=== PATIENT | male | born 1950 | race African-American/Black ===

== ENCOUNTER → 2020-05-19 09:48 | Outpatient (BNVA) | payer OTHER, SELFPAY | PROVIDERS: PCP Internal Medicine; Referring Provider Internal Medicine; Visit Provider Surgery | DX: Z76.89 Persons encountering health services in other specified circumstances (principal) ==

== ENCOUNTER → 2020-06-25 09:21 | Outpatient (BNVA) | payer OTHER, SELFPAY | PROVIDERS: PCP Internal Medicine; Referring Provider Internal Medicine; Visit Provider Internal Medicine Gastroenterology | DX: Z86.018 Personal history of other benign neoplasm (principal); Z90.49 Acquired absence of other specified parts of digestive tract | CPT/HCPCS: 99212 ==

== ENCOUNTER 2020-08-21 13:45 | Outpatient (REF) | payer OTHER, SELFPAY | END 2020-08-21 13:46 | disposition home or self-care (01) | LOC: HO.LAB 13:45 | PROVIDERS: Visit Provider Internal Medicine | DX: Z20.828 Contact with and (suspected) exposure to other viral communicable diseases (principal) | CPT/HCPCS: 36415; C9803; U0003 ==

== ENCOUNTER → 2021-01-26 11:31 | Outpatient (BNVA) | payer OTHER, SELFPAY | PROVIDERS: PCP Internal Medicine; Visit Provider Internal Medicine Cardiovascular Disease | DX: I48.92 Unspecified atrial flutter (principal); I10 Essential (primary) hypertension; K92.1 Melena; Z95.0 Presence of cardiac pacemaker; Z79.899 Other long term (current) drug therapy | CPT/HCPCS: 93005; 99212 ==

== ENCOUNTER → 2021-03-09 12:35 | Outpatient (BNVA) | payer OTHER, SELFPAY | PROVIDERS: PCP Internal Medicine; Referring Provider Internal Medicine; Visit Provider Surgery | DX: K64.9 Unspecified hemorrhoids (principal); K92.1 Melena; D12.0 Benign neoplasm of cecum; C61 Malignant neoplasm of prostate; I10 Essential (primary) hypertension; Z95.0 Presence of cardiac pacemaker; Z79.01 Long term (current) use of anticoagulants; Z79.899 Other long term (current) drug therapy | CPT/HCPCS: 46600; 99212 ==

== ENCOUNTER 2021-03-15 12:41 | Emergency (ER) | payer OTHER, SELFPAY ==
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
[2021-03-15 13:07] VITALS: BP 136/94; PULSE 68; RESP 16; TEMP 35.5; O2SAT 97; BMI 29.1
[2021-03-15 14:27] VITALS: BP 167/94; PULSE 65; RESP 18; TEMP 36.6; O2SAT 97
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
[2021-03-15 16:26] VITALS: BP 161/92; PULSE 61; RESP 16; TEMP 36.5; O2SAT 95
== END 2021-03-15 16:41 | disposition home or self-care (01) ==
PROVIDERS: Emergency Provider Internal Medicine; PCP Internal Medicine
DX: S13.9XXA Sprain of joints and ligaments of unspecified parts of neck, initial encounter (principal); M54.12 Radiculopathy, cervical region; M54.2 Cervicalgia; V43.52XA Car driver injured in collision with other type car in traffic accident, initial encounter; Y93.9 Activity, unspecified; Y92.410 Unspecified street and highway as the place of occurrence of the external cause; Y99.9 Unspecified external cause status; F17.210 Nicotine dependence, cigarettes, uncomplicated; Z71.6 Tobacco abuse counseling; Z79.899 Other long term (current) drug therapy
CPT/HCPCS: 70450; 72125; 99284

== ENCOUNTER 2021-06-03 12:43 | Emergency (ER) | payer OTHER, SELFPAY ==
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
[2021-06-03 12:50] VITALS: BP 139/82; PULSE 65; RESP 18; TEMP 36.8; O2SAT 98; BMI 29.7
--- NOTE | 2021-06-03 14:06 | ED_ITS ---
HPI - GI Bleed General Chief complaint: Abdominal Pain Stated complaint: blood in stool Time Seen by Provider: 06/03/21 14:05 Source: patient Mode of arrival: ambulatory Limitations: no limitations History of Present Illness HPI Narrative: 70-year-old male past medical history of asthma, atrial flutter, adenoma of ascending colon, tubular adenoma of the colon c right hemicolectomy, and bleeding heorrhoids presents to the emergency department with blood in the stool for a few months, worse today He states that usually he sees blood when he wipes, his doctor told him this was from hemorrhoids. However this morning he had an episode of bright red blood per rectum that filled up the toilet bowl. He says this has never happened to him before. He reports his bowel movements have required a lot of straining, and he has used suppositories. He denies abdominal pain, fevers, chills, weakness, shortness of breath, nausea, vomiting. He has had a colonoscopy in the past, few years ago, with no significant fin dings per patient. He denies family history of colorectal cancer. He is currently taking apixaban. MD complaint: blood on toilet paper and gross hematochezia Onset (ago): month(s) (1) Relieving factors: none Exacerbating factors: bowel movement Context: hemorrhoids and anticoagulant use (apixaban) Associated symptoms: denies other symptoms Treatments Prior to Arrival: suppositories Related Data Home Medications Medication Instructions Recorded Confirmed amlodipine 5 mg tablet 5 mg PO DAILY 05/17/20 03/09/21 apixaban 5 mg tablet 5 mg PO BID 05/17/20 03/09/21 pravastatin 40 mg tablet 40 mg PO DAILY 05/17/20 03/09/21 Previous Rx's Medication Instructions Recorded cyclobenzaprine 10 mg tablet 10 mg PO TID PRN #18 tab 03/15/21 Allergies Allergy/AdvReac Type Severity Reaction Status Date / Time No Known Allergies Allergy Verified 03/15/21 13:11 [No Known Allergies*] Review of Systems Review of Systems: Constitutional : No Weight loss, No Fever, No Chills, No Fatigue, No Malaise ENT/Mouth : No sore throat, No Rhinorrhea Eyes: No Eye Pain, No Swelling, No Redness Cardiovascular : No Chest Pain, No SOB, No Dyspnea on Exertion, No Orthopnea, No Edema, No Palpitations Respiratory : No Cough, No Sputum, No Wheezing Gastrointestinal : No Nausea, No Vomiting, No Diarrhea, No Constipation, No abdominal Pain, + Hematochezia, No Melena Genitourinary : No Dysuria, No Urinary Frequency, No Hematuria, Musculoskeletal : No joint pain, No Myalgias, No Joint Swelling Skin : No Skin Lesions, No rash Neuro : No Weakness, No Numbness, No Dizziness, No Headache All other systems reviewed and are negative [facility] Past Medical History Attestation statement: The following information was validated with the patient. Source: old records reviewed and nursing notes reviewed Medical History Bleeding hemorrhoids Cardiac pacemaker in situ Hypertension Prostate cancer Tubular adenoma of colon Surgical History H/O colonoscopy H/O hernia repair History of prostate biopsy History of right hemicolectomy Hx of tonsillectomy Pacemaker Family History Family History Father Family history of Alzheimer's disease Mother Breast cancer Social History Social History Alcohol intake: current Alcohol intake frequency: a few times a month Cigarettes Per Day: 1 Advance Directives: No Advance Directives Information Provided: No Physical Exam Vital Signs: Vital Signs: Last Vital Signs Temp 98.3 F 06/03/21 16:46 Pulse 65 06/03/21 16:46 Resp 18 06/03/21 16:46 BP 160/92 H 06/03/21 16:46 Pulse Ox 98 06/03/21 16:46 Body Mass Index 29.7 Appearance: Alert. Oriented X3. No acute distress. Eyes: Pupils equal, round and reactive to light. ENT: Pharynx normal. Neck: Normal inspection. Neck supple. CVS: Normal heart rate and rhythm. Pulses normal. Respiratory: No respiratory distress. Breath sounds normal. Abdomen: Soft and nontender. GI: MARISABEL reveals small internal hemorrhoids. There was no blood noted upon MARISABEL. Skin: Skin warm and dry. Normal skin color. Normal skin turgor. Extremities: No lower extremity edema. No calf ttp Neuro: Oriented X 3. No motor deficit. No sensory deficit. Course Course Course Narrative: 1729 Patient refusing all medical care at this time. Refusing repeat blood work. His H&H is stable at this time. He has been educated on the importance of these labs and he has been advised to follow up with his PCP or return with new and or worsening symptoms. MDM - GI Bleed MDM Narrative Medical decision making narrative: 70-year-old male past medical history of asthma, atrial flutter, adenoma of ascending colon, tubular adenoma of the colon c right hemicolectomy, and bleeding heorrhoids presents to the emergency department with blood in the stool for the past month, worse this morning. He states that this morning the toilet bowl filled up with blood, this is never happened to him before. This is not like his typical hemorrhoid bleeding. He is currently taking apixaban. Upon physical examination there is no tenderness to palpation of the abdomen. Lungs are clear to auscultation, normal S1 and S2 free of murmurs rubs or gallops. No focal neuro deficits. Digital rectal exam reveals small internal hemorrhoids, that do not appear to be bleeding at this time. No gigi blood noted upon MARISABEL. At this time basic labs will be ordered, and a CT of the abdomen pelvis will also be done. Differential Diagnosis Differential diagnosis: Likely hemorrhoids Lab Data Result diagrams: 06/03/21 14:30 06/03/21 14:30 Labs: Lab Results 06/03/21 06/03/21 06/03/21 Range/Units 14:30 14:30 14:30 WBC 4.2 L (4.8-10.8) X10*3/uL RBC 4.16 L (4.60-5.80) X10*6/uL Hgb 13.2 L (14.0-18.0) g/dl Hct 39.3 L (42-52) % MCV 94.5 (80-98) fL MCH 31.7 (27.0-33.0) pg MCHC 33.6 (31.0-36.0) g/dl RDW 15.8 (11.0-16.0) % Plt Count 178 (160-400) X10*3/uL MPV 11.4 (9.4-12.4) fL Immature Gran % (Auto) 0.2 (0.0-0.4) % Neut % (Auto) 68.8 (45-73) % Lymph % (Auto) 14.7 L (20-40) % [place] % (Auto) 12.3 H (2-11) % Eos % (Auto) 3.8 (0-4) % Baso % (Auto) 0.2 (0-2) % Lymph # (Auto) 0.6 L (1.2-4.9) X10*3/uL [place] # (Auto) 0.5 (0.1-1.2) X10*3/uL Eos # (Auto) 0.2 (0.0-0.4) X10*3/uL Baso # (Auto) 0.0 (0.0-0.2) X10*3/uL Abs Immat Gran (auto) 0.01 (0.00-0.03) X10*3/uL Absolute Neuts (auto) 2.9 (2.0-8.3) X10*3/uL Absolute Nucleated RBC 0.000 (0.0-0.012) X10*3/uL Nucleated RBC % (auto) 0.0 (0.0-0.2) /100WBC Sodium 138 (135-145) mmol/L Potassium 4.4 (3.3-5.1) mmol/L Chloride 104 (96-108) mmol/L Carbon Dioxide 23 (22-29) mmol/L Anion Gap 15 (12-20) BUN 26 H (9-16) mg/dL Creatinine 2.02 H (0.5-1.4) mg/dL Estim Creat Clear Calc 39.1 Estimated GFR 33 Random Glucose 90 (60-115) mg/dL Calcium 9.3 (8.4-10.2) mg/dL Magnesium 2.2 (1.6-2.6) mg/dL Total Bilirubin 0.5 (0.0-1.0) mg/dL Direct Bilirubin 0.2 (0.0-0.5) mg/dL AST 13 (5-37) U/L ALT 11 (0-40) U/L Alkaline Phosphatase 71 (39-117) U/L Total Protein 6.5 (6.5-8.0) g/dL Albumin 4.0 (3.5-5.0) g/dL Stool Occult Blood POSITIVE (NEGATIVE) Discharge Plan Discharge Clinical Impression: Acute lower gastrointestinal bleeding Patient Disposition: Home, Self-Care Instructions: Gastrointestinal Bleeding (ED) Additional Instructions: return to ED for any worsening symptoms or concerns it was recommended that you stay for repeat blood tests, we cannot say for sure where your bleeding is coming from. This could be life threatening. Please come back at any time or call your doctor FLORY Prescriptions: No Action cyclobenzaprine 10 mg tablet 10 mg PO TID PRN (Reason: pain) Qty: 18 RF: 0 pravastatin 40 mg tablet 40 mg PO DAILY RF: 0 amlodipine 5 mg tablet 5 mg PO DAILY RF: 0 apixaban 5 mg tablet 5 mg PO BID RF: 0 Referrals: Hillary Poole MD [Primary Care Provider] - 1 day
[2021-06-03 14:42] LABS: MANUAL DIFF FLAG NO
[2021-06-03 14:44] LABS: Basophils Percent Auto 0.2 % (0-2); Eosinophils Absolute Auto 0.2 X10*3/uL (0.0-0.4); Eosinophils Percent Auto 3.8 % (0-4); Hematocrit 39.3 % (42-52); Hemoglobin 13.2 g/dl (14.0-18.0); Imm Gran Abs Auto 0.01 X10*3/uL (0.00-0.03); Imm Gran Pct Auto 0.2 % (0.0-0.4); Lymphocytes Absolute Auto 0.6 X10*3/uL (1.2-4.9); Lymphocytes Percent Auto 14.7 % (20-40); Mean Corpuscular HGB Conc 33.6 g/dl (31.0-36.0); Mean Corpuscular Hemoglobin 31.7 pg (27.0-33.0); Mean Corpuscular Volume 94.5 fL (80-98); Mean Platelet Volume 11.4 fL (9.4-12.4); Monocytes Absolute Auto 0.5 X10*3/uL (0.1-1.2); Monocytes Percent Auto 12.3 % (2-11); Neutrophils Absolute Auto 2.9 X10*3/uL (2.0-8.3); Neutrophils Percent Auto 68.8 % (45-73); Platelet Count 178 X10*3/uL (160-400); Red Blood Count 4.16 X10*6/uL (4.60-5.80); Red Cell Distribution Width 15.8 % (11.0-16.0); White Blood Count 4.2 X10*3/uL (4.8-10.8)
[2021-06-03 14:50] LABS: OBS Int Ctl Valid YES; OBS1 POSITIVE (NEGATIVE)
[2021-06-03 15:11] LABS: Alanine Aminotransferase 11 U/L (0-40); Alkaline Phosphatase 71 U/L (39-117); Anion Gap 15 (12-20); Aspartate Amino Transferase 13 U/L (5-37); Bilirubin Direct 0.2 mg/dL (0.0-0.5); Bilirubin Total 0.5 mg/dL (0.0-1.0); Blood Urea Nitrogen 26 mg/dL (9-16); Calcium 9.3 mg/dL (8.4-10.2); Carbon Dioxide 23 mmol/L (22-29); Chloride 104 mmol/L (96-108); Creatinine Clr Calc Pharmacy 39.1; Estimated Glomerular Filt Rate 33; Glucose Random 90 mg/dL (60-115); Magnesium 2.2 mg/dL (1.6-2.6); Potassium 4.4 mmol/L (3.3-5.1); Sodium 138 mmol/L (135-145); Total Protein 6.5 g/dL (6.5-8.0)
[2021-06-03 16:46] VITALS: BP 160/92; PULSE 65; RESP 18; TEMP 36.8; O2SAT 98
--- NOTE | 2021-06-03 17:31 | PC.NURSE ---
patient refusing repeat labs
== END 2021-06-03 17:51 | disposition home or self-care (01) ==
PROVIDERS: Emergency Provider Emergency Medicine; PCP Internal Medicine
DX: K92.2 Gastrointestinal hemorrhage, unspecified (principal); I10 Essential (primary) hypertension; I48.92 Unspecified atrial flutter; J45.909 Unspecified asthma, uncomplicated; Z79.01 Long term (current) use of anticoagulants; Z95.0 Presence of cardiac pacemaker
CPT/HCPCS: 36415; 74176; 80048; 80076; 82272; 83735; 85025; 99283; 99284

== ENCOUNTER 2021-06-07 12:01 | Emergency (ER) | payer OTHER, SELFPAY ==
--- NOTE | ~2021-06-07 | XR_ITS ---
EXAMINATION: XR KNEE, RIGHT CLINICAL INFORMATION: Right knee pain COMPARISON: None TECHNIQUE: Four views of the right knee. FINDINGS: Bones and soft tissues are normal. No fracture or joint effusion. Alignment is anatomic. Joint spaces are well maintained. No abnormal soft tissue calcification. XR/XR knee RT 4V IMPRESSION: Unremarkable right knee exam
[2021-06-07 12:28] VITALS: BP 149/84; PULSE 63; RESP 16; TEMP 36.1; O2SAT 98; BMI 29.7
[2021-06-07] MEDS: cephALEXin 500 MG CAPSULE PO (13:32)
--- NOTE | 2021-06-07 13:35 | ED.EXTPRO ---
HPI - Extremity Problem General Chief complaint: Extremity Problem Stated complaint: swollen rt knee Time Seen by Provider: 06/07/21 12:28 Source: patient Mode of arrival: ambulatory Limitations: no limitations History of Present Illness HPI Narrative: Patient presents to the ED for right knee pain for the past 2 days. patient states might have bumped his knee and now has redness of red knee. Patient states no fever, chills, leg swelling, chest pain, calf pain, or shortness of breath. MD Complaint: extremity pain Related Data Home Medications Medication Instructions Recorded Confirmed amlodipine 5 mg tablet 5 mg PO DAILY 05/17/20 03/09/21 apixaban 5 mg tablet 5 mg PO BID 05/17/20 03/09/21 pravastatin 40 mg tablet 40 mg PO DAILY 05/17/20 03/09/21 Previous Rx's Medication Instructions Recorded cyclobenzaprine 10 mg tablet 10 mg PO TID PRN #18 tab 03/15/21 cephalexin 500 mg capsule 500 mg PO QID #28 cap 06/07/21 doxycycline hyclate 100 mg capsule 100 mg PO BID 7 Days #14 cap 06/07/21 Allergies Allergy/AdvReac Type Severity Reaction Status Date / Time No Known Allergies Allergy Verified 03/15/21 13:11 [No Known Allergies*] Review of Systems Review of Systems: Yes all other systems are reviewed and are negative Constitutional: Constitutional: Reports as per HPI and Reports no additional constitutional complaints Eyes: Eyes: Reports as per HPI and Reports no additional eye complaints ENT: Reports system reviewed and no additional complaints, except as documented and Reports as per HPI Cardiovascular: Cardiovascular: Reports as per HPI and Reports no additional cardiovascular complaints Respiratory: Respiratory: Reports as per HPI and Reports no additional respiratory complaints Gastrointestinal: Gastrointestinal: Reports as per HPI and Reports no additional gastrointestinal complaints Genitourinary: Genitourinary: Reports no additional male genitourinary complaints and Reports as per HPI Musculoskeletal: Musculoskeletal: Reports no additional musculoskeletal complaints, Reports as per HPI and Reports arthralgias (right knee pain) Integumentary/Breasts: Skin/Breast: Reports system reviewed and no additional complaints, except as docu and Reports as per HPI Neurologic: Reports system reviewed and no additional complaints, except as documented and Reports as per HPI Psychiatric: Psychiatric: Reports no additional psychiatric complaints and Reports as per HPI COUNT INCLUDES [facility] Past Medical History Medical History Bleeding hemorrhoids Cardiac pacemaker in situ Hypertension Prostate cancer Tubular adenoma of colon Surgical History H/O colonoscopy H/O hernia repair History of prostate biopsy History of right hemicolectomy Hx of tonsillectomy Pacemaker Family History Family History Father Family history of Alzheimer's disease Mother Breast cancer Social History Social History Alcohol intake: current Alcohol intake frequency: a few times a month Cigarettes Per Day: 1 Advance Directives: No Physical Exam Vital Signs: Vital Signs: Last Vital Signs Temp 97 F 06/07/21 12:28 Pulse 63 06/07/21 12:28 Resp 16 06/07/21 12:28 BP 149/84 H 06/07/21 12:28 Pulse Ox 98 06/07/21 12:28 Body Mass Index 29.7 Const: General: cooperative, healthy appearing, comfortable, no acute distress, well developed, alert, awake and Physically active Orientation/consciousness: patient oriented x3 HENMT: Head: Yes normal to inspection, Yes No palpable skull fracture present, Yes normocephalic, Yes atraumatic and No abrasion Eyes: General: appearance normal, both eyes and all related structures Neck: Neck: Yes normal visual inspection, Yes full ROM, Yes no lymphadenopathy, Yes no meningeal signs, Yes trachea midline, Yes supple and No tender Chest: Chest palpation & inspection: normal inspection of the chest and normal palpation of entire chest wall Resp: Effort & Inspection: normal respiratory effort and able to speak in complete sentences Cardio: Jugular venous distension: no JVD Heart sounds: S1 normal heart sound present and S2 normal heart sound present GI: Inspection: Yes normal to inspection and No abdominal wall ecchymosis Palpation (GI): Soft to palpation, not firm, nontender, no guarding and not rigid : General: No CVA tenderness and Yes no CVA tenderness Back/Spine/Pelvis: Back: no CVA tenderness, No CVA tenderness and No back tenderness Skin: Other: knee redness. Neuro: General: patient oriented x3, gait normal, no meningeal signs and CN's II-XI intact bilaterally Cranial nerves: Yes CN's II-XII intact bilaterally Extrem: General: Yes normal to inspection and Yes full ROM Knee images: 1. positive for redness and tenderness on palpation. negative for any fluctulance, swelling, deformity, stiffness, pus drianage, or foul odor. Motor, neuro, and vascular exam is contact. patient can bend and extend knee. Course Course Course Narrative: PATIENT SENT FOR RIGHT KNEE XRAY Reevaluation(s) Reevaluation #1: kNEE XRAY NEGATIVE FOR JOINT EFFUSION TO INDICATE SEPSIS OR GOUT. pATIENT WILL BE DISCHARGE ANTIBIOTICS AND TREATED CELLULITIS. Presently no indication for arthrocentesis. Time: 13:45 MDM - Extremity (Nontraumatic) MDM Narrative Medical decision making narrative: KNEE CELLULITIS Discharge Plan Discharge Clinical Impression: Cellulitis of knee, right Patient Disposition: Home, Self-Care Instructions: Cellulitis (ED) Additional Instructions: Return to the ED immediately for knee swelling, worsening redness, red streaks, fever, chills, leg swelling, calf pain, thigh pain, chest pain, shortness of breath, or any other concerning symptoms. Due to apixaban you should only take tylenol for pain relief. Do not take any NSAIds. Please follow up with PCP. Prescriptions: New cephalexin 500 mg capsule 500 mg PO QID Qty: 28 RF: 0 doxycycline hyclate 100 mg capsule 100 mg PO BID 7 Days Qty: 14 RF: 0 No Action cyclobenzaprine 10 mg tablet 10 mg PO TID PRN (Reason: pain) Qty: 18 RF: 0 pravastatin 40 mg tablet 40 mg PO DAILY RF: 0 amlodipine 5 mg tablet 5 mg PO DAILY RF: 0 apixaban 5 mg tablet 5 mg PO BID RF: 0 Interventions: ED Discharge Assessment Last Done: 06/07/21 14:28 Discharge Date/Time: 06/07/21 14:29 Print Language: Barbadian
== END 2021-06-07 14:29 | disposition home or self-care (01) ==
PROVIDERS: Emergency Provider Emergency Medicine; PCP Internal Medicine
DX: L03.115 Cellulitis of right lower limb (principal)
CPT/HCPCS: 73564; 99283

== ENCOUNTER → 2021-07-23 10:49 | Outpatient (BNVA) | payer OTHER, SELFPAY | PROVIDERS: PCP Internal Medicine; Referring Provider Internal Medicine; Visit Provider Internal Medicine Cardiovascular Disease | DX: Z45.018 Encounter for adjustment and management of other part of cardiac pacemaker (principal); I48.92 Unspecified atrial flutter; R06.02 Shortness of breath | CPT/HCPCS: 93005; 99212 ==

== ENCOUNTER → 2021-09-11 08:50 | Outpatient (REF) | payer OTHER, SELFPAY ==
--- NOTE | 2021-09-11 08:57 | CA_ITS ---
Transthoracic Echocardiogram Amended Patient (Last, First, Middle): Carlos Enrique Bucklye E Gender: Male Date of : 1950 Age: 71 Procedure Date: 09/11/2021 Procedure Type: Transthoracic Echocardiogram Location: OP Height: 177.8 cm Weight: 95.26 kg BSA: 2.13 m2 Heart Rate: bpm BP: 127 / 80 mmHg Lactation Coordinator: TYLER Referring MD: Jadon Navarro MD Sumo Wrestler: Jadon Navarro MD Symptoms: I48.92 - Unspecified atrial flutter Study Quality: Good Conclusions: - 1. Normal LV systolic function with moderate LVH with severe ARTI 2. Moderately dilated left atrium 3. Normal RVSP 4. Mildly dilated ascending aorta 5. No pericardial effusion Findings Left Ventricle Normal left ventricular size and systolic function. There is moderately increased left ventricular wall thickness. The visually estimated ejection fraction is between 55-60%. Diastolic function is indeterminate on the basis of available data. There is severe septal asymmetric hypertrophy. Right Ventricle Normal right ventricular cavity size and systolic function. Atria The left atrium is moderately dilated. There is no evidence of interatrial shunt. The right atrium is mildly dilated. Aortic Valve There is mild calcification of the aortic valve. There is mild thickening of the aortic valve. There is no aortic valve stenosis. There is no aortic valve regurgitation. Mitral Valve There is mild anterior and posterior mitral leaflet thickening. There is trace mitral valve regurgitation. There is no mitral valve stenosis. Pulmonic Valve The pulmonic valve was not well visualized. Tricuspid Valve There is trace tricuspid valve regurgitation. Normal right atrial pressure. There is no evidence of pulmonary hypertension. Great Vessels The pulmonary artery was not well visualized. There is mild dilatation of the ascending aorta measuring 3.90 cm. Venous The inferior vena cava is normal in size and collapses greater than 50% with inspiration. Pericardium/Pleural There is no evidence of pericardial effusion. Prior Study Comparison No significant change compared to prior study dated: 03/19/2020. Measurements 2D Linear Measurements IVSd: 1.86 0.6-0.9/0.6-1.0 cm LVIDd: 4.25 3.9-5.3/4.2-5.9 cm LVIDd Index: 2.00 2.4-3.2/2.2-3.1 cm/m2 LVIDs: 2.94 2.0-3.6 cm LVPWd: 1.60 0.7-1.1 cm Ao Root: 4.40 2.1-3.5 cm LA Diam: 4.90 2.7-3.8/3.0-4.0 cm LAIDs Index: 2.30 1.5-2.3 cm/m2 LV Mass: 336.49 67-162/88-224 g LV Mass Index: 157.98 43-95/49-115 g/m2 LVOT Diam: 2.50 3.0+(-)1.3 cm 2D Volumes LA Vol: 49.80 2D Systolic Function EF 4C: 53.00 >55% EF 2C: 58.80 >55% EF BiP: 56.50 >55% Mitral Valve MV Pk E: 0.66 MV PK A: 0.33 MV Decel Time: 169.00 E/A: 2.00 E'Lateral: 7.29 E'Medial: 5.44 E/E' Med: 12.20 E/E' Lat: 9.10 PHT: 50.00 MVA PHT: 4.40 Decel Mcduffie: 3.93 Aortic Valve AoV Pk Abdiel: 1.06 AoV Mn Abdiel: 0.82 AoV VTI: 0.22 AoV Pk Grad: 4.00 Aov Mn Grad: 3.00 CATARINO Cont.VTI: 4.16 LVOT LVOT Pk Abdiel: 0.88 LVOT Mn Abdiel: 0.67 LVOT VTI: 0.19 LVOT Pk Grad: 3.00 LVOT Mn Grad: 2.00 LVOT Diam: 2.50 LVOT Area: 4.91 Diastolic Function MV Pk E: 0.66 MV Pk A: 0.33 E/A: 2.00 E'Medial: 5.44 E/E' Med: 12.20 E' Laterial: 7.29 E/E' Lat: 9.10 Right Ventricle TAPSE (mm): 14.00 TVS' Abdiel: 11.70 Tricuspid Valve TR Pk Abdiel: 1.86 TR Pk Grad: 14.00 RA Press: 8.00 RVSP: 22.00 Great Vessels Aorta Ao Root-2D: 4.40 2.0-3.7 cm Ao Asc: 3.90 2.1-3.4 cm Ao Arch: 3.30 Updated in Other Vendor System with Status of Final Jadon Navarro MD electronically signed on 09/12/2021 9:55:50 AM with status of Final
== END ==
LOC: HO.CARD 08:50
PROVIDERS: PCP Internal Medicine; Visit Provider Internal Medicine Cardiovascular Disease
DX: I48.92 Unspecified atrial flutter (principal)
CPT/HCPCS: 93306

== ENCOUNTER 2022-02-08 09:49 | Outpatient (REF) | payer OTHER, SELFPAY ==
[2022-02-08 11:08] LABS: Hematocrit 41.2 % (42.0-52.0); Hemoglobin 13.3 g/dl (14.0-18.0); Mean Corpuscular HGB Conc 32.3 g/dl (31.0-36.0); Mean Corpuscular Hemoglobin 31.7 pg (27.0-33.0); Mean Corpuscular Volume 98.1 fL (80.0-98.0); Mean Platelet Volume 12.2 fL (9.4-12.4); Platelet Count 201 X10*3/uL (160-400); Red Cell Distribution Width 16.1 % (11.0-16.0)
[2022-02-08 11:52] LABS: Anion Gap 13 (12-20); Blood Urea Nitrogen 23 mg/dL (9-16); Calcium 9.8 mg/dL (8.4-10.2); Carbon Dioxide 23 mmol/L (22-29); Chloride 109 mmol/L (96-108); Estimated Glomerular Filt Rate 39; Glucose Random 95 mg/dL (60-115); Potassium 5.3 mmol/L (3.3-5.1); Sodium 140 mmol/L (135-145)
== END 2022-02-08 09:50 | disposition home or self-care (01) ==
LOC: HO.LAB 09:49
PROVIDERS: Visit Provider Internal Medicine Cardiovascular Disease
DX: I48.92 Unspecified atrial flutter (principal); Z95.0 Presence of cardiac pacemaker
CPT/HCPCS: 36415; 80048; 85027; 93280; 99212

== ENCOUNTER → 2022-04-14 08:44 | Outpatient (BNVA) | payer OTHER, SELFPAY | PROVIDERS: PCP Internal Medicine; Visit Provider Urology | DX: C61 Malignant neoplasm of prostate (principal) | CPT/HCPCS: 99212 ==

== ENCOUNTER → 2022-09-28 08:14 | Outpatient (BNVA) | payer OTHER, SELFPAY | PROVIDERS: PCP Internal Medicine; Referring Provider Internal Medicine; Visit Provider Internal Medicine Cardiovascular Disease | DX: Z45.018 Encounter for adjustment and management of other part of cardiac pacemaker (principal); I48.92 Unspecified atrial flutter | CPT/HCPCS: 93005; 93280; 99212 ==

== ENCOUNTER 2022-10-20 08:11 | Outpatient (REF) | payer OTHER, SELFPAY ==
[2022-10-20 09:23] LABS: Prostate Specific Antigen 0.26 ng/mL (<0.05-4.0)
[2022-10-28 06:08] LABS: Testosterone, Total 300 ng/dL (250-1100)
== END 2022-10-20 08:12 | disposition home or self-care (01) ==
LOC: HO.LAB 08:11
PROVIDERS: PCP Internal Medicine; Visit Provider Urology
DX: Z12.5 Encounter for screening for malignant neoplasm of prostate (principal); C61 Malignant neoplasm of prostate; E29.1 Testicular hypofunction
CPT/HCPCS: 36415; 84153; 84403

== ENCOUNTER → 2022-10-29 09:16 | Outpatient (BNVA) | payer OTHER, SELFPAY | PROVIDERS: PCP Internal Medicine; Visit Provider Urology | DX: N30.40 Irradiation cystitis without hematuria (principal); R39.15 Urgency of urination | CPT/HCPCS: 51798; 99212 ==

== ENCOUNTER → 2023-04-05 08:23 | Outpatient (BNVA) | payer OTHER, SELFPAY | PROVIDERS: PCP Internal Medicine; Referring Provider Internal Medicine; Visit Provider Internal Medicine Cardiovascular Disease | DX: Z45.018 Encounter for adjustment and management of other part of cardiac pacemaker (principal); I48.92 Unspecified atrial flutter; I10 Essential (primary) hypertension | CPT/HCPCS: 93280; 99212 ==

== ENCOUNTER 2023-04-05 08:57 | Outpatient (AMB) | payer OTHER, SELFPAY ==
--- NOTE | 2023-04-05 09:17 | MHC.OFFVIS ---
Intake Vital Signs 04/05/23 09:18 Height 5 ft 10 in Weight 209 lb 7.026 oz BMI 30.0 BP 130/78 Blood Pressure Location Lt brachial Position Sitting Pulse 70 Intake Visit Reasons: 6 mth f/up w/ pacer ck Intake Note: 6 month with medtronic pacer check feeling good Lathmaker Required: No Allergies No Known Allergies [No Known Allergies*] Allergy (Verified 04/13/22 15:03) Medication List - Last Reconciled 04/05/23 by Jadon Navarro MD allopurinol 100 mg PO DAILY amlodipine 5 mg PO DAILY apixaban 5 mg PO BID metoprolol succinate ER 25 mg PO DAILY oxybutynin chloride ER 10 mg PO DAILY 90 days pravastatin 40 mg PO DAILY vitamin E (dl, acetate) 450 mg PO DAILY 90 days HPI HPI Comments History of Present Illness Details Carlos Enrique comes for follow-up. He continues to do well from cardiac perspective. No cardiac symptoms to report. Denies any prolonged palpitations. In November on remote monitoring was noted to be in atrial flutter and that lasted for more than 3 months. Currently back in atrial paced rhythm. He has underlying sinus rhythm in the 40s. He has no symptoms when he is in persistent atrial flutter with no cardiac decompensation or signs of heart failure. He takes all his medications. He denies lightheadedness, syncope. Denies any heart failure symptoms. No bleeding issues or neurologic events. He gets his semi annual blood work done at [facility] Medical History (Updated 04/05/23 @ 09:33 by Jadon Navarro MD) Bleeding hemorrhoids Cardiac pacemaker in situ Hypertension Prostate cancer Tubular adenoma of colon Surgical History H/O colonoscopy H/O hernia repair History of prostate biopsy History of right hemicolectomy Hx of tonsillectomy Pacemaker Family History Father Family history of Alzheimer's disease Mother Breast cancer Social History Alcohol intake: current Alcohol intake frequency: a few times a month Cigarettes Per Day: 1 Review of Systems Const Denies chills, Denies fatigue, Denies fever(s), Denies frequent falls, Denies weakness, Denies weight gain and Denies weight loss ENT Denies dizziness Card Denies chest pain, Denies leg edema, Denies lightheadedness, Denies palpitations, Denies dyspnea, Denies dyspnea on exertion, Denies orthopnea and Denies other (loss of consciousness) Resp Denies cough, Denies dyspnea and Denies dyspnea on exertion GI Denies hematochezia and Denies change in stool character Musc Denies abnormal gait, Denies muscle weakness, Denies numbness, Denies radiating pain into limb and Denies tingling Neuro Denies abnormal gait, Denies dizziness, Denies frequent falls, Denies numbness, Denies tingling and Denies weakness Endo Denies fatigue and Denies palpitations Physical Exam Vital Signs: Last Vital Signs Pulse 70 04/05/23 09:18 BP 130/78 04/05/23 09:18 BMI result Body Mass Index 30.0 Const General: cooperative, comfortable, no acute distress, alert and awake Nutritional Appearance: overweight Orientation/consciousness: patient oriented x3 Limitations: no limitations Neck Neck: Yes trachea midline, Yes supple and Yes no JVD Resp Effort & Inspection: normal respiratory effort Auscultation: clear to auscultation bilaterally Cardio Jugular venous distension: no JVD Palpation: normal PMI Rate: regular rate Rhythm: regular rhythm Heart sounds: S1 normal heart sound present and S2 normal heart sound present GI Auscultation: normal bowel sounds Skin General skin exam: no rashes or lesions noted Neuro General: patient oriented x3 and no focal motor deficits Extrem General: Yes no clubbing, cyanosis or edema Psych Appearance: grossly normal Office Procedures Cardiac Device Check Cardiac Device Check Details: Dual-chamber Medtronic pacemaker in place. Programmed in DDD IR at 60 beats per minute. Patient currently in atrially and ventricularly paced rhythm. Atrial pacing 10% of time. Patient ventricularly pacer dependent. Patient is very active by pacer telemetry. Atrial fibrillation burden about 87% of the time. Atrial sensing is adequate. Ventricular sensing could not be change. Atrial pacing thresholds excellent and reprogrammed to enhance battery life. Ventricular pacing thresholds adequate and reprogrammed to provide adequate safety. Pacing lead impedance is stable. Battery life is excellent at 8 years [id number] Cardiac Device Check, pacemaker dual lead Procedure code (CPT) selection complete Assessment & Plan Assessment & Plan (1) Atrial flutter: Code(s): I48.92 - Unspecified atrial flutter Plan: Patient has intermittent atrial flutter with long episodes of persistent atrial flutter without any symptoms or signs of cardiac decompensation. Will continue monitor by pacer telemetry. However will avoid any antiarrhythmic drug therapy at this point time. Continue full oral anticoagulation, currently on Eliquis 5 mg b.i.d.. Continue follow semi annual renal function test being pursue 3 our office. (2) Cardiac pacemaker in situ: Comment: Dual-chamber Medtronic pacemaker placed for bradycardia Code(s): Z95.0 - Presence of cardiac pacemaker Plan: Cardiac pacemaker in-situ with persistent RV pacing and patient pacer dependent. No signs or symptoms of heart failure. Pacemaker was reprogrammed. Will follow remotely every 3 months. Follow-up echocardiogram in 6 months time to assess for LV systolic dysfunction. (3) Hypertension: Code(s): I10 - Essential (primary) hypertension Plan: Hypertension which is currently well optimized advised to monitor blood pressure at home maintain a log. Goal blood pressure less than 130/84. Continue current therapy. Low-salt diet was discussed. Advised to maintain heart healthy lifestyle and regular physical activity. Will follow up in the clinic in 6 months time, sooner p.r.n.. Thank you for allowing me to partake in his care Orders: Orders CA echo transthoracic complete 6 Months I48.92 - Unspecified atrial flutter Coding Level of Care Code Est Pt Level 4 (29460) Diagnoses Atrial flutter I48.92 Cardiac pacemaker in situ Z95.0 Hypertension I10 CPT Codes Cardiac Device Check - Cardiac Device 2: 00616-[id number] Cardiac Device Check, pacemaker dual lead ([id number])
[2023-04-05 09:18] VITALS: BP 130/78; PULSE 70
== END 2023-04-05 09:56 | disposition home or self-care (01) ==
PROVIDERS: PCP Internal Medicine; Referring Provider Internal Medicine; Visit Provider Internal Medicine Cardiovascular Disease
DX: I48.92 Unspecified atrial flutter (principal); Z95.0 Presence of cardiac pacemaker; I10 Essential (primary) hypertension
CPT/HCPCS: 93280; 99214

== ENCOUNTER → 2023-05-12 23:59 | Outpatient (BNV) | payer OTHER, SELFPAY ==
--- NOTE | 2023-05-12 10:22 | MHC.OFFVIS ---
Intake Intake Visit Reasons: Remote Device Check- Medtronic Allergies No Known Allergies [No Known Allergies*] Allergy (Verified 04/13/22 15:03) PFSH Medical History (Updated 04/05/23 @ 09:33 by Jadon Navarro MD) Bleeding hemorrhoids Cardiac pacemaker in situ Tubular adenoma of colon Prostate cancer Hypertension Surgical History History of right hemicolectomy History of prostate biopsy Pacemaker H/O colonoscopy H/O hernia repair Hx of tonsillectomy Family History Father Family history of Alzheimer's disease Mother Breast cancer Social History Alcohol intake: current Alcohol intake frequency: a few times a month Cigarettes Per Day: 1 Office Procedures Cardiac Device Check Cardiac Device Check Details: Remote pacemaker report generated 05/12/2023. Pacemaker function is adequate. Patient currently not in atrial flutter [id number] Cardiac Device Interrogation, pacemaker Procedure code (CPT) selection complete Coding Level of Care Code Procedure Only CPT Codes Cardiac Device Check - Cardiac Device 12: [id number] Cardiac Device Interrogation, pacemaker ([id number])
== END ==
PROVIDERS: PCP Internal Medicine; Visit Provider Internal Medicine Cardiovascular Disease
DX: I48.92 Unspecified atrial flutter (principal); Z95.0 Presence of cardiac pacemaker
CPT/HCPCS: 93294

== ENCOUNTER 2023-06-20 08:12 | Emergency (ER) | payer OTHER, SELFPAY ==
--- NOTE | ~2023-06-20 | CT_ITS ---
EXAMINATION: CT ABDOMEN AND PELVIS WITHOUT CONTRAST CLINICAL INFORMATION: Hematuria COMPARISON: CT abdomen pelvis June 03, 2021 TECHNIQUE: Multidetector volumetric imaging was performed from the superior aspect of the liver through the pubic symphysis. Sagittal and coronal reformatted images were obtained on the technologist's workstation. This CT examination was performed using dose optimization techniques as appropriate, variously including the following: *Automated exposure control *Adjustment of mA and/or kV according to patient size (this includes techniques or standardized protocols for targeted exams where dose is matched to indication/reason for exam; i.e. extremities or head) *Use of iterative reconstruction technique DLP: 606 mGy-cm FINDINGS: Visualized lung bases demonstrate atelectasis versus scarring. The liver is normal in size. Numerous hepatic hypodense lesions are again identified, many of which demonstrate cystic characteristics, however, a few are inaccurately characterized. Largest hepatic cyst is located within the right hepatic dome and measures approximately 7.4 cm (previously 6.6 cm). The gallbladder is normal in appearance. The pancreas, spleen and adrenal glands are unremarkable. Symmetrically sized kidneys. No renal calculi or hydronephrosis of either kidney. A few cysts are again appreciated within the right kidney. Tiny hiatal hernia. The stomach is decompressed. Normal caliber loops of small and large bowel. Unremarkable anastomotic suture line of the cecum. Mild to moderate colonic stool burden throughout the majority the colon. Normal caliber abdominal aorta demonstrating moderate atherosclerotic disease. No retroperitoneal lymphadenopathy. Small fat-containing umbilical hernia. The bladder is decompressed and therefore not optimally characterized, however, mild diffuse bladder wall thickening is suspected. The prostate gland is mildly enlarged. Similar suspected reticular therapy seeds within the prostate gland. No gross free pelvic fluid. Small fat-containing inguinal hernias bilaterally. Mild diffuse degenerative changes of the spine. CT/CT abdomen pelvis wo IV con IMPRESSION: 1. No renal calculi or hydronephrosis of either kidney. 2. The bladder is decompressed and therefore not optimally characterized, however, mild diffuse bladder wall thickening is suspected. The prostate gland is mildly enlarged. 3. Numerous hepatic hypodense lesions are again identified, many of which demonstrate cystic characteristics, however, a few are inaccurately characterized. Largest hepatic cyst is located within the right hepatic dome and measures approximately 7.4 cm (previously 6.6 cm). Fleischner guidelines were followed.
[2023-06-20 08:24] VITALS: BP 182/89; PULSE 80; RESP 20; TEMP 36.4; O2SAT 98; BMI 29.7
--- NOTE | 2023-06-20 08:42 | ED.MALEGU ---
HPI - Male Genitourinary General Chief complaint: Urogenital-Male Stated complaint: blood in urine Time Seen by Provider: 06/20/23 08:33 Source: patient Mode of arrival: ambulatory Limitations: no limitations History of Present Illness HPI Narrative: This is a 73 years old male with history of prostatic cancer, anticoagulated with apixaban, history of pacemaker presented to the emergency department complaining of hematuria x3 days. He denies any systemic symptoms such as fever vomiting chest pain abdominal pain MD Complaint: other (hematuria) Onset (ago): day(s) (3) Duration: constant Severity: moderate Relieving factors: none Exacerbating factors: none Associated symptoms: Reports denies other symptoms Related Data Home Medications Medication Instructions Recorded Confirmed amlodipine 5 mg tablet 5 mg PO DAILY 05/17/20 04/05/23 apixaban 5 mg tablet 5 mg PO BID 05/17/20 04/05/23 pravastatin 40 mg tablet 40 mg PO DAILY 05/17/20 04/05/23 allopurinol 100 mg tablet 100 mg PO DAILY 09/28/22 04/05/23 Previous Rx's Medication Instructions Recorded oxybutynin chloride 10 mg 10 mg PO DAILY 90 days #90 tabs 10/29/22 tablet,extended release 24 hr vitamin E (dl, acetate) 450 mg 450 mg PO DAILY 90 days #90 caps 10/29/22 (1,000 unit) capsule metoprolol succinate 50 mg 50 mg PO DAILY #90 tabs 06/17/23 tablet,extended release 24 hr cephalexin 500 mg capsule 500 mg PO Q8H #21 caps 06/20/23 Allergies Allergy/AdvReac Type Severity Reaction Status Date / Time No Known Allergies Allergy Verified 04/13/22 15:03 [No Known Allergies*] Review of Systems Constitutional: Constitutional: Reports no additional constitutional complaints Cardiovascular: Cardiovascular: Reports no additional cardiovascular complaints Neurologic: Reports system reviewed and no additional complaints, except as documented PMFSH Past Medical History Medical History Bleeding hemorrhoids Cardiac pacemaker in situ Tubular adenoma of colon Prostate cancer Hypertension Surgical History History of right hemicolectomy History of prostate biopsy Pacemaker H/O colonoscopy H/O hernia repair Hx of tonsillectomy Family History Family History Father Family history of Alzheimer's disease Mother Breast cancer Social History Social History Alcohol intake: current Alcohol intake frequency: a few times a month Cigarettes Per Day: 1 Advance Directives: No Advance Directives Information Provided: No Physical Exam Vital Signs: Vital Signs: Last Vital Signs Temp 97.5 F 06/20/23 10:35 Pulse 66 06/20/23 10:35 Resp 16 06/20/23 10:35 BP 154/94 H 06/20/23 10:35 Pulse Ox 94 06/20/23 10:35 O2 Del Method Room Air 06/20/23 10:35 BMI result Body Mass Index 29.7 Const: General: cooperative Nutritional Appearance: well nourished Orientation/consciousness: patient oriented x3 Limitations: no limitations HEENT: Head: Yes normal to inspection Face and sinus: Yes normal facial exam Eyes: General: appearance normal, both eyes and all related structures Neck: Neck: Yes normal visual inspection Chest: Chest palpation & inspection: normal inspection of the chest Resp: Effort & Inspection: normal respiratory effort and able to speak in complete sentences Auscultation: clear to auscultation bilaterally Cardio: Jugular venous distension: no JVD Rate: regular rate Rhythm: regular rhythm GI: Inspection: Yes normal to inspection Palpation (GI): Soft to palpation, not firm and nontender Auscultation: normal bowel sounds Skin: General skin exam: no rashes or lesions noted and elasticity normal Rashes: no rashes Neuro: General: patient oriented x3 Cranial nerves: Yes CN's II-XII intact bilaterally Course Reevaluation(s) Reevaluation #1: Patient was re-examined in at 13:12 is doing much better his urine is much clear he will be discharged home,he has few WBC in the urine will give po AB Time: 13:12 Medical Decision Making Medical Decision Making [facility] Narrative: Patient presents the emergency department complaining of hematuria will obtain labs UA and CT scan and reassessed Differential Diagnosis Differential Diagnoses: The differential diagnosis associated with the presentation includes Bladder CA/kidney stone/renal tumor Admission/Observation Consideration of admission/observation: Escalation of care including admission/observation considered Lab Data [facility] Lab Attestation statement: I reviewed the patient's lab results. 06/20/23 09:09 06/20/23 09:09 Labs: Lab Results 06/20/23 06/20/23 Range/Units 09:09 10:36 WBC 3.1 L (4.8-10.8) X10*3/uL RBC 4.02 L (4.60-5.80) X10*6/uL Hgb 12.9 L (14.0-18.0) g/dl Hct 39.0 L (42.0-52.0) % MCV 97.0 (80.0-98.0) fL MCH 32.1 (27.0-33.0) pg MCHC 33.1 (31.0-36.0) g/dl RDW 15.5 (11.0-16.0) % Plt Count 138 L D (160-400) X10*3/uL MPV 11.3 (9.4-12.4) fL Immature Gran % (Auto) 0.3 (0.0-0.4) % Neut % (Auto) 61.8 (45-73) % Lymph % (Auto) 18.5 L (20-40) % Stone % (Auto) 13.4 H (2-11) % Eos % (Auto) 5.4 H (0-4) % Baso % (Auto) 0.6 (0-2) % Lymph # (Auto) 0.6 L (1.2-4.9) X10*3/uL Stone # (Auto) 0.4 (0.1-1.2) X10*3/uL Eos # (Auto) 0.2 (0.0-0.4) X10*3/uL Baso # (Auto) 0.0 (0.0-0.2) X10*3/uL Abs Immat Gran (auto) 0.01 (0.00-0.03) X10*3/uL Absolute Neuts (auto) 1.9 L (2.0-8.3) x10*3/uL Absolute Nucleated RBC 0.000 (0.0-0.012) X10*3/uL Nucleated RBC % (auto) 0.0 (0.0-0.2) /100WBC PT 16.2 H (11.1-13.3) SEC INR 1.3 H (0.9-1.1) APTT 37.8 H (26.0-36.4) SEC Sodium 140 (135-145) mmol/L Potassium 4.9 (3.3-5.1) mmol/L Chloride 111 H (96-108) mmol/L Carbon Dioxide 24 (22-29) mmol/L Anion Gap 10 L (12-20) BUN 21 H (9-16) mg/dL Creatinine 1.44 H (0.5-1.4) mg/dL Estim Creat Clear Calc 52.5 Estimated GFR 48 Random Glucose 93 (60-115) mg/dL Calcium 9.1 D (8.4-10.2) mg/dL Total Bilirubin 0.6 (0.0-1.0) mg/dL AST 14 (5-37) U/L ALT 12 (0-40) U/L Alkaline Phosphatase 72 (39-117) U/L Total Protein 6.4 L (6.5-8.0) g/dL Albumin 3.7 (3.5-5.0) g/dL Urine Color RED Urine Appearance Turbid Urine pH 6.0 (5.0-9.0) Ur Specific [place] 1.025 (1.005-1.025) Urine Protein 100 (2+) H (Neg-Trace) mg/dL Urine Glucose (UA) Negative (Negative) mg/dL Urine Ketones Negative (Negative) mg/dL Urine Blood Large (3+) H (Negative) Urine Nitrite Negative (Negative) Ur Leukocyte Esterase Negative (Negative) Urine RBC >20 H (0-2) /HPF Urine WBC 11-20 H (0-5) /HPF Ur Squamous Epith Cells 0-2 (0-2) /HPF Urine Bacteria 1+ (None Seen) Hyaline Casts 0-2 (0-2) /LPF Independent Interpretation I performed an independent interpretation of an: CT Scan (no stones) Radiology Impression Discussion of test interpretation with radiology: I have reviewed the radiologist's reading. Radiologist Impression: y seeds within the prostate gland. No gross free pelvic fluid. Small fat-containing inguinal hernias bilaterally. Mild diffuse degenerative changes of the spine. CT/CT abdomen pelvis wo IV con IMPRESSION: 1. No renal calculi or hydronephrosis of either kidney. 2. The bladder is decompressed and therefore not optimally characterized, however, mild diffuse bladder wall thickening is suspected. The prostate gland is mildly enlarged. 3. Numerous hepatic hypodense lesions are again identified, many of which demonstrate cystic characteristics, however, a few are inaccurately characterized. Largest hepatic cyst is located within the right hepatic dome and measures approximately 7.4 cm (previously 6.6 cm). Fleischner guidelines were followed. Dictated By: Gurwinder Cronin MD Signed By: <Electronically signed by Gurwinder Cronin MD in OV> 06/20/23956 DD/ 5 TD/TT: Surveillance Inspector: External Record Review External record reviewed: Inpatient record Discharge Plan Discharge Clinical Impression: Hematuria Patient Disposition: Home, Self-Care Instructions: Hematuria (ED) Additional Instructions: Follow-up with you urologist Dr. Arora call today make an appointment,take keflex as directed Prescriptions: New cephalexin 500 mg capsule 500 mg PO Q8H Qty: 21 0RF No Action metoprolol succinate 50 mg tablet extended release 24 hr 50 mg PO DAILY Qty: 90 3RF pravastatin 40 mg tablet 40 mg PO DAILY amlodipine 5 mg tablet 5 mg PO DAILY apixaban 5 mg tablet 5 mg PO BID allopurinol 100 mg tablet 100 mg PO DAILY oxybutynin chloride 10 mg tablet extended release 24hr 10 mg PO DAILY 90 Days Qty: 90 0RF vitamin E (dl, acetate) 450 mg (1,000 unit) capsule 450 mg PO DAILY 90 Days Qty: 90 1RF Referrals: Italo Arora MD [Physician] - 2 days
[2023-06-20 09:13] LABS: MANUAL DIFF FLAG NO
[2023-06-20 09:14] LABS: Hemoglobin 12.9 g/dl (14.0-18.0); Imm Gran Pct Auto 0.3 % (0.0-0.4); Lymphocytes Percent Auto 18.5 % (20-40); Mean Corpuscular HGB Conc 33.1 g/dl (31.0-36.0); Mean Corpuscular Hemoglobin 32.1 pg (27.0-33.0); Mean Platelet Volume 11.3 fL (9.4-12.4); Monocytes Percent Auto 13.4 % (2-11); Neutrophils Percent Auto 61.8 % (45-73); Platelet Count 138 X10*3/uL (160-400); Red Blood Count 4.02 X10*6/uL (4.60-5.80); Red Cell Distribution Width 15.5 % (11.0-16.0); White Blood Count 3.1 X10*3/uL (4.8-10.8)
[2023-06-20 09:15] LABS: Basophils Percent Auto 0.6 % (0-2); Eosinophils Absolute Auto 0.2 X10*3/uL (0.0-0.4); Eosinophils Percent Auto 5.4 % (0-4); Imm Gran Abs Auto 0.01 X10*3/uL (0.00-0.03); Lymphocytes Absolute Auto 0.6 X10*3/uL (1.2-4.9); Monocytes Absolute Auto 0.4 X10*3/uL (0.1-1.2); Neutrophils Absolute Auto 1.9 x10*3/uL (2.0-8.3)
[2023-06-20 09:22] LABS: INTERNATIONAL NORM RATIO 1.3 (0.9-1.1); Prothrombin Time 16.2 SEC (11.1-13.3)
[2023-06-20 09:25] LABS: Partial Thromboplastin Time 37.8 SEC (26.0-36.4)
[2023-06-20 09:37] LABS: Alanine Aminotransferase 12 U/L (0-40); Albumin Level 3.7 g/dL (3.5-5.0); Alkaline Phosphatase 72 U/L (39-117); Anion Gap 10 (12-20); Aspartate Amino Transferase 14 U/L (5-37); Bilirubin Total 0.6 mg/dL (0.0-1.0); Blood Urea Nitrogen 21 mg/dL (9-16); Calcium 9.1 mg/dL (8.4-10.2); Carbon Dioxide 24 mmol/L (22-29); Chloride 111 mmol/L (96-108); Creatinine Clr Calc Pharmacy 52.5; Estimated Glomerular Filt Rate 48; Glucose Random 93 mg/dL (60-115); Potassium 4.9 mmol/L (3.3-5.1); Sodium 140 mmol/L (135-145); Total Protein 6.4 g/dL (6.5-8.0)
--- NOTE | 2023-06-20 09:37 | PC.NURSE ---
patient alert and oriented, respirations even and unlabored. resting quietly in room, sleeping on and off. taken for CT scan, awaiting results. offering no complaints. iv established, labs drawn and sent. call gomez within reach.
[2023-06-20 10:35] VITALS: BP 154/94; PULSE 66; RESP 16; TEMP 36.4; O2SAT 94
--- NOTE | 2023-06-20 10:47 | PC.NURSE ---
able to provide urine sample, continues to rest quietly in room.
[2023-06-20 10:54] LABS: Appearance Urine Turbid; Color Urine RED; Glucose Urine UA Negative (Negative); Leukocyte Esterase Urine Negative (Negative); Nitrite Urine Negative (Negative); Specific Gravity - Urine 1.025 (1.005-1.025); UMIC TRIGGER UACC YES; Urine Blood Large (3+) (Negative); Urine Ketones Negative (Negative); Urine Protein 100 (2+) mg/dL (Neg-Trace)
[2023-06-20 11:08] LABS: Bacteria Urine 1+ (None Seen); Hyaline Casts Urine 0-2 /LPF (0-2); RBC Urine >20 /HPF (0-2); Squamous Epithelial Cell Urine 0-2 /HPF (0-2); UACC Culture Trigger YES
--- NOTE | 2023-06-20 12:38 | PC.NURSE ---
continues to rest quietly in room with even and unlabored respirations. awaiting dispo from provider, call gomez within reach.
[2023-06-20] MEDS: cephALEXin 500 MG CAPSULE PO (13:21)
== END 2023-06-20 13:22 | disposition home or self-care (01) ==
PROVIDERS: Emergency Provider Emergency Medicine; PCP Internal Medicine
DX: R31.9 Hematuria, unspecified (principal); R10.2 Pelvic and perineal pain; Z79.899 Other long term (current) drug therapy
CPT/HCPCS: 36415; 74176; 80053; 81001; 85025; 85610; 85730; 87086; 99284

== ENCOUNTER → 2023-07-26 07:58 | Outpatient (REF) | payer OTHER, SELFPAY ==
--- NOTE | 2023-07-26 08:01 | CA_ITS ---
Transthoracic Echocardiogram Patient (Last, First, Middle): Carlos Enrique Buckley E Gender: Male Date of : 1950 Age: 73 Procedure Date: 07/26/2023 Procedure Type: Transthoracic Echocardiogram Location: OP Height: 177.8 cm Weight: 93.9 kg BSA: 2.12 m2 Heart Rate: 62 bpm BP: 145 / 85 mmHg Educational Technology Coordinator: AARON Referring MD: Leonor Blevins TOOL MAKER BENCHCleve Symptoms: I48.92 - Unspecified atrial flutter Study Quality: Adequate ECG Rhythm: Probable flutter with controlled rate Conclusions: - The left ventricular systolic function is normal. The visually estimated ejection fraction is between 55-60%. - There is severely increased left ventricular wall thickness (with some asymmetric septal hypertrophy). - The left atrium is severely dilated. - There is mild dilatation of the sinuses of Valsalva measuring 4.20 cm and mild dilatation of the ascending aorta measuring 4.00 cm. Findings Left Ventricle Normal left ventricular cavity size. There is severely increased left ventricular wall thickness. The left ventricular systolic function is normal. The visually estimated ejection fraction is between 55-60%. There is no evidence of regional wall motion abnormalities. Diastolic function is indeterminate on the basis of available data. There is severe septal asymmetric hypertrophy. Right Ventricle Normal right ventricular cavity size. There is low normal right ventricular systolic function. Atria The left atrium is severely dilated. The right atrium is normal in size. Aortic Valve There is a normal trileaflet aortic valve. There is mild calcification of the aortic valve. There is no aortic valve stenosis. Mitral Valve The mitral valve appears normal. There is trace mitral valve regurgitation. There is no mitral valve stenosis. Pulmonic Valve The pulmonic valve is likely normal. Tricuspid Valve There is trace tricuspid valve regurgitation. There is no evidence of pulmonary hypertension. Great Vessels There is mild dilatation of the sinuses of Valsalva measuring 4.20 cm and mild dilatation of the ascending aorta measuring 4.00 cm. Venous The inferior vena cava is normal in size and collapses greater than 50% with inspiration. Pericardium/Pleural There is a trivial pericardial effusion. Prior Study Comparison No significant change compared to prior study dated: 09/11/2021. Measurements 2D Linear Measurements IVSd: 1.95 0.6-0.9/0.6-1.0 cm LVIDd: 3.81 3.9-5.3/4.2-5.9 cm LVIDd Index: 1.80 2.4-3.2/2.2-3.1 cm/m2 LVIDs: 2.50 2.0-3.6 cm LVPWd: 1.71 0.7-1.1 cm LA Diam: 4.60 2.7-3.8/3.0-4.0 cm LAIDs Index: 2.17 1.5-2.3 cm/m2 LV Mass: 375.99 67-162/88-224 g LV Mass Index: 177.35 43-95/49-115 g/m2 LVOT Diam: 2.20 3.0+(-)1.3 cm 2D Systolic Function EF 4C: 51.10 >55% EF 2C: 52.50 >55% EF BiP: 52.60 >55% Mitral Valve MV Pk E: 0.76 MV PK A: 0.43 MV Decel Time: 166.00 E/A: 1.80 E'Lateral: 9.68 E'Medial: 8.49 E/E' Med: 8.90 E/E' Lat: 7.80 PHT: 49.00 MVA PHT: 4.49 Decel [place]: 4.58 Aortic Valve AoV Pk Abdiel: 1.13 AoV Mn Abdiel: 0.85 AoV VTI: 0.24 AoV Pk Grad: 5.00 Aov Mn Grad: 3.00 CATARINO Cont.VTI: 3.46 LVOT LVOT Pk Abdiel: 0.99 LVOT Mn Abdiel: 0.71 LVOT VTI: 0.22 LVOT Pk Grad: 4.00 LVOT Mn Grad: 2.00 LVOT Diam: 2.20 LVOT Area: 3.80 Diastolic Function MV Pk E: 0.76 MV Pk A: 0.43 E/A: 1.80 E'Medial: 8.49 E/E' Med: 8.90 E' Laterial: 9.68 E/E' Lat: 7.80 Right Ventricle TAPSE (mm): 18.50 TVS' Abdiel: 10.10 Tricuspid Valve TR Pk Abdiel: 1.76 TR Pk Grad: 12.00 Great Vessels Aorta Sinus of Valsalva: 4.20 2.0-3.5 cm Ao Asc: 4.00 2.1-3.4 cm Pulmonary Valve PV Pk Abdiel: 0.81 Peak PV Grad: 3.00 Updated in Other Vendor System with Status of Final Roman Jung MD electronically signed on 07/27/2023 10:05:15 AM with status of Final
== END ==
LOC: HO.CARD 07:58
PROVIDERS: PCP Internal Medicine; Visit Provider Nurse Practitioner Family
DX: I48.92 Unspecified atrial flutter (principal); I47.29 Other ventricular tachycardia
CPT/HCPCS: 93306

== ENCOUNTER → 2023-07-26 08:01 | Outpatient (BNV) | payer OTHER, SELFPAY | PROVIDERS: PCP Internal Medicine; Visit Provider Internal Medicine | DX: I35.8 Other nonrheumatic aortic valve disorders (principal); I48.92 Unspecified atrial flutter | CPT/HCPCS: 93306 ==

== ENCOUNTER → 2023-08-12 23:59 | Outpatient (BNV) | payer OTHER, SELFPAY ==
--- NOTE | 2023-08-16 08:06 | MHC.OFFVIS ---
Intake Intake Visit Reasons: Remote Device Check- Medtronic Allergies No Known Allergies [No Known Allergies*] Allergy (Verified 04/13/22 15:03) PFSH Medical History Bleeding hemorrhoids Cardiac pacemaker in situ Tubular adenoma of colon Prostate cancer Hypertension Surgical History History of right hemicolectomy History of prostate biopsy Pacemaker H/O colonoscopy H/O hernia repair Hx of tonsillectomy Family History Father Family history of Alzheimer's disease Mother Breast cancer Social History Alcohol intake: current Alcohol intake frequency: a few times a month Cigarettes Per Day: 1 Office Procedures Cardiac Device Check Cardiac Device Check Details: Remote pacemaker report generated 08/12/2023. [id number] Cardiac Device Interrogation, pacemaker Procedure code (CPT) selection complete Assessment & Plan Assessment & Plan (1) Cardiac pacemaker in situ: Comment: Dual-chamber Medtronic pacemaker placed for bradycardia Code(s): Z95.0 - Presence of cardiac pacemaker Plan: See above Coding Level of Care Code Procedure Only Diagnoses Cardiac pacemaker in situ Z95.0 CPT Codes Cardiac Device Check - Cardiac Device 12: [id number] Cardiac Device Interrogation, pacemaker ([id number])
== END ==
PROVIDERS: PCP Internal Medicine; Visit Provider Internal Medicine Cardiovascular Disease
DX: I48.92 Unspecified atrial flutter (principal); Z95.0 Presence of cardiac pacemaker
CPT/HCPCS: 93294

== ENCOUNTER 2023-08-25 08:54 | Outpatient (AMB) | payer OTHER, SELFPAY ==
--- NOTE | 2023-08-25 09:00 | A.OFFVIS_ITS ---
Intake Intake Visit Reasons: Possible Cysto Intake Note: Patient is Present for Cystoscopy Patient declined cystoscopy Urology Med: Oxybutynin Antibiotic Allergy: None Blood Thinner: Apixaban Allergies No Known Allergies [No Known Allergies*] Allergy (Verified 08/25/23 09:11) Medication List - Last Reconciled 08/25/23 by Italo Arora MD allopurinol 100 mg PO DAILY amlodipine 5 mg PO DAILY apixaban 5 mg PO BID cephalexin 500 mg PO Q8H metoprolol succinate ER 50 mg PO DAILY mirabegron ER 25 mg PO DAILY 90 days oxybutynin chloride ER 10 mg PO DAILY 90 days pravastatin 40 mg PO DAILY vitamin E (dl, acetate) 450 mg PO DAILY 90 days HPI HPI Comments History of Present Illness Details Carlos Enrique is a pleasant male. He is a patient of Dr. Poole. He is seen for the following urologic conditions - prostate cancer - radiation cystitis Significant improvement of urgency with combination oxybutynin vitamin-E Has had episodes of hematuria and blood with stool Has been on Eliquis for cardiac related issues Would continue with oxybutynin vitamin E for bladder stability Given age would be better on beta agonist. Myrbetriq prescription provided PSA 02/03 0.2, 11/04 0.26 Prostate cancer - grade group 4 EXBRT [address] Gan PSA 11.2 Initial biopsy demonstrated Royer 6, 7, 8 and 9 Underwent external beam radiation at [facility] with 18 months GnRH hormones Imaging - initial bone scan and CT scan showed n o steven disease PFSH Medical History Bleeding hemorrhoids Cardiac pacemaker in situ Tubular adenoma of colon Prostate cancer Hypertension Surgical History History of right hemicolectomy History of prostate biopsy Pacemaker H/O colonoscopy H/O hernia repair Hx of tonsillectomy Family History Father Family history of Alzheimer's disease Mother Breast cancer Social History Alcohol intake: current Alcohol intake frequency: a few times a month Cigarettes Per Day: 1 Review of Systems Const Denies chills and Denies fever(s) Card Reports no additional complaints and Denies syncope Resp Denies cough GI Denies abdominal pain and Denies heartburn Reports as per HPI and Denies change in libido Neuro Denies syncope Psych Denies change in libido Endo Denies change in libido Physical Exam Const General: cooperative, healthy appearing, comfortable and no acute distress Orientation/consciousness: patient oriented x3 HEENT Face and sinus: Yes normal facial exam Mouth: moist mucous membranes Neck Neck: Yes normal visual inspection, Yes full ROM and Yes trachea midline Chest Chest palpation & inspection: normal inspection of the chest Resp Effort & Inspection: normal respiratory effort, able to speak in complete sentences and no respiratory distress GI Inspection: Yes normal to inspection Back/Spine/Pelvis Cervical Spine: normal cervical lordosis Thoracic/Lumbar Spine: thoracic and lumbar spine normal to inspection Skin General skin exam: no rashes or lesions noted Neuro General: patient oriented x3, gait normal, tone normal and moves all extremities Extrem General: Yes normal to inspection and Yes capillary refill normal Office Procedures Cystoscopy Consent Discussed risk and benefit or proposed procedure with the patient. Information consent for procedure given to the patient. Discussed technical aspects, risks, benefits and alternatives in full. Addressed all of the patient's questions and concerns regarding the procedure. The patient demonstrated knowledge and understanding. They wish to proceed with this procedure. Preparation The patient was prepped in the usual manner. A information security analyst was present and in the room. Genitalia was prepped with betadine solution in a sterile manner. Lidocaine Jelly 2% was placed into the urethra and 16Fr flexible Olympus cystoscope was inserted into the meatus after adequate lubrication. 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40 - Irradiation cystitis without hematuria, R39.15 - Urgency of urination Patient Instructions: Imaging studies, laboratory and physical exam results were discussed and reviewed in detail. No major barriers to patient understanding were identified. An opportunity to ask questions regarding the treatment plan was provided. All questions were answered. The patient expressed understanding and agreement with the above treatment plan. The patient is aware they should contact our office by phone for worsening of their current condition or the appearance of new urologic symptoms. Compliance is encouraged with any medications and followup testing that is ordered. It is a privilege to participate in the urologic care of your patient. If you have any questions or concerns regarding treatment for the above conditions, or other urologic issues, please do not hesitate to contact me. The office telephone contact is [phone]. This note is constructed using voice recognition software. While every effort has been made to ensure accuracy data entry representative errors may have been included. Yours sincerely, Dr Italo Arora MD, [facility] - Urology Providers of Expert, Compassionate Care for the Genitourinary System Coding Level of Care Code Est Pt Level 4 (85350) Diagnoses Urinary urgency R39.15 Radiation cystitis N30.40 Prostate cancer C61
== END 2023-08-25 09:51 | disposition home or self-care (01) ==
PROVIDERS: PCP Internal Medicine; Referring Provider Internal Medicine; Visit Provider Urology
DX: C61 Malignant neoplasm of prostate (principal); R39.15 Urgency of urination; N30.40 Irradiation cystitis without hematuria
CPT/HCPCS: 99214

== ENCOUNTER → 2023-08-25 08:54 | Outpatient (BNVA) | payer OTHER, SELFPAY | PROVIDERS: PCP Internal Medicine; Visit Provider Urology | DX: R39.15 Urgency of urination (principal); N30.40 Irradiation cystitis without hematuria; C61 Malignant neoplasm of prostate | CPT/HCPCS: 99212 ==

== ENCOUNTER 2023-10-10 08:53 | Outpatient (AMB) | payer OTHER, SELFPAY ==
--- NOTE | 2023-10-10 08:57 | A.OFFVIS_ITS ---
Intake Vital Signs 10/10/23 09:14 Height 5 ft 10 in Weight 223 lb 12.307 oz BMI 32.1 BP 128/80 Blood Pressure Location Lt brachial Position Sitting Pulse 62 Pulse Source Pulse Oximeter Intake Visit Reasons: 6 mth f/up echo Intake Note: 6 month follow up with EKG , pacemaker check, Director Of Resource Development Required: No Allergies No Known Allergies [No Known Allergies*] Allergy (Verified 08/25/23 09:11) Medication List - Last Reconciled 10/10/23 by Jadon Navarro MD allopurinol 100 mg PO DAILY amlodipine 5 mg PO DAILY apixaban 5 mg PO BID metoprolol succinate ER 50 mg PO DAILY mirabegron ER 25 mg PO DAILY 90 days oxybutynin chloride ER 10 mg PO DAILY 90 days pravastatin 40 mg PO DAILY vitamin E (dl, acetate) 450 mg PO DAILY 90 days HPI HPI Comments History of Present Illness Details Carlos Enrique comes for follow-up. He has been doing well. His echocardiogram shows severe LVH with normal LV ejection fraction. Scheduled to undergo cardiac MRI in near future for infiltrative heart disease. He does have nonsustained VT as well with complete heart block in the past and need to rule out any evidence of sarcoidosis. He does complain of exertional shortness of breath walking half a mi. No orthopnea, PND, leg edema. No symptoms of palpitations. He intermittently has persistent atrial fibrillation flutter and then goes back into AV paced rhythm. He did have urinary bleeding but this has been addressed and he has no longer any bleeding from the urinary tract. His recent hemoglobin was stable. He does have bleeding after passing bowel movements when he wipes himself. This is not a major bleeding issue. [facility] Medical History Bleeding hemorrhoids Cardiac pacemaker in situ Tubular adenoma of colon Prostate cancer Hypertension Surgical History History of right hemicolectomy History of prostate biopsy Pacemaker H/O colonoscopy H/O hernia repair Hx of tonsillectomy Family History Father Family history of Alzheimer's disease Mother Breast cancer Social History Alcohol intake: current Alcohol intake frequency: a few times a month Cigarettes Per Day: 1 Review of Systems Const Denies chills, Denies fatigue, Denies fever(s), Denies frequent falls, Denies weakness, Denies weight gain and Denies weight loss ENT Denies dizziness Card Denies chest pain, Denies leg edema, Denies lightheadedness, Denies palpitations, Denies dyspnea, Denies dyspnea on exertion, Denies orthopnea and Denies other (loss of consciousness) Resp Denies cough, Denies dyspnea and Denies dyspnea on exertion GI Denies hematochezia and Denies change in stool character Musc Denies abnormal gait, Denies muscle weakness, Denies numbness, Denies radiating pain into limb and Denies tingling Neuro Denies abnormal gait, Denies dizziness, Denies frequent falls, Denies numbness, Denies tingling and Denies weakness Endo Denies fatigue and Denies palpitations Physical Exam Vital Signs: Last Vital Signs Pulse 62 10/10/23 09:14 BP 128/80 10/10/23 09:14 BMI result Body Mass Index 32.1 Const General: cooperative, comfortable, no acute distress, alert and awake Nutritional Appearance: overweight Orientation/consciousness: patient oriented x3 Limitations: no limitations Neck Neck: Yes trachea midline, Yes supple and Yes no JVD Resp Effort & Inspection: normal respiratory effort Auscultation: clear to auscultation bilaterally Cardio Jugular venous distension: no JVD Palpation: normal PMI Rate: regular rate Rhythm: regular rhythm Heart sounds: S1 normal heart sound present and S2 normal heart sound present GI Auscultation: normal bowel sounds Skin General skin exam: no rashes or lesions noted Neuro General: patient oriented x3 and no focal motor deficits Extrem General: Yes no clubbing, cyanosis or edema Psych Appearance: grossly normal Office Procedures Cardiac Device Check Cardiac Device Check Details: Dual-chamber Medtronic pacemaker in place. Programmed in DDDR at 60 beats per minute. Ventricular pacing 100% of the time. Atrial ventricular lead impedance is stable. Atrial sensing is excellent. Ventricular sensing could not be checked. Atrial pacing thresholds excellent and reprogrammed to enhance battery life. Ventricular pacing thresholds adequate and reprogrammed to enhance safety. Few episodes of nonsustained VT noted. Patient is extremely active to about 6.2 hours a day. Last atrial flutter episode few months ago. [id number] Cardiac Device Check, pacemaker dual lead Procedure code (CPT) selection complete EKG Details: EKG shows AV dual paced rhythm [id number], Complete Assessment & Plan Assessment & Plan (1) LVH (left ventricular hypertrophy): Code(s): I51.7 - Cardiomegaly Plan: Left ventricular hypertrophy out of proportion to his hypertension. Given his underlying history of atrial flutter as well as complete heart block need to rule out infiltrative heart disease such as amyloidosis as well as sarcoidosis. Patient also has nonsustained VT on cardiac telemetry. This raises concern for sarcoidosis. Will suggest a cardiac MRI which is been scheduled in near future. Exertional shortness of breath could be explained by his LVH. He does not have any signs of heart failure at this point time. They were discussed with him. (2) Cardiac pacemaker in situ: Comment: Dual-chamber Medtronic pacemaker placed for bradycardia Code(s): Z95.0 - Presence of cardiac pacemaker Plan: Cardiac pacemaker in-situ, for complete heart block. Pacemaker is working well. Will continue follow remotely every 3 months. Follow up in the clinic in 6 months time. Pacemaker was adjusted for adequate functioning. (3) Atrial flutter: Code(s): I48.92 - Unspecified atrial flutter Plan: Intermittent atrial flutter often persistent for long period time. Patient has no symptoms during persistent atrial flutter. Today noted to be in AV synchrony. Although he has no symptoms even today. Continue full oral anticoagulation, currently on Eliquis at 5 mg b.i.d.. Quarterly renal function test should be pursued. If he continues to have bleeding issues should be referred for GI evaluation. Currently not anemic. Advised to call me or PCP to further bleeding episodes. Will follow up in the clinic in 6 months time, sooner p.r.n.. Thank you for allowing me to partake in his care Coding Level of Care Code Est Pt Level 4 (85715) Diagnoses LVH (left ventricular hypertrophy) I51.7 Cardiac pacemaker in situ Z95.0 Atrial flutter I48.92 CPT Codes Cardiac Device Check - Cardiac Device 2: 45461-MK Cardiac Device Check, pacemaker dual lead ([id number]) EKG - CPT: 46441-Cbhvnwkbdrzrsacoe, Complete ([id number])
[2023-10-10 09:14] VITALS: BP 128/80; PULSE 62; BMI 32.1
== END 2023-10-10 09:57 | disposition home or self-care (01) ==
PROVIDERS: PCP Internal Medicine; Visit Provider Internal Medicine Cardiovascular Disease
DX: I51.7 Cardiomegaly (principal); I48.92 Unspecified atrial flutter; Z95.0 Presence of cardiac pacemaker
CPT/HCPCS: 93280; 99214

== ENCOUNTER → 2023-10-10 08:53 | Outpatient (BNVA) | payer OTHER, SELFPAY | PROVIDERS: PCP Internal Medicine; Visit Provider Internal Medicine Cardiovascular Disease | DX: Z45.018 Encounter for adjustment and management of other part of cardiac pacemaker (principal); I51.7 Cardiomegaly; I48.92 Unspecified atrial flutter | CPT/HCPCS: 93005; 93280; 99212 ==

== ENCOUNTER → 2023-11-12 23:59 | Outpatient (BNV) | payer OTHER, SELFPAY ==
--- NOTE | 2023-11-14 15:02 | MHC.OFFVIS ---
Intake Intake Visit Reasons: Remote Device Check- Medtronic Allergies No Known Allergies [No Known Allergies*] Allergy (Verified 08/25/23 09:11) PFSH Medical History Bleeding hemorrhoids Cardiac pacemaker in situ Tubular adenoma of colon Prostate cancer Hypertension Surgical History History of right hemicolectomy History of prostate biopsy Pacemaker H/O colonoscopy H/O hernia repair Hx of tonsillectomy Family History Father Family history of Alzheimer's disease Mother Breast cancer Social History Alcohol intake: current Alcohol intake frequency: a few times a month Cigarettes Per Day: 1 Office Procedures Cardiac Device Check Cardiac Device Check Details: Remote pacemaker report generated 11/12/2023. Pacemaker function is adequate. Minimal burden of atrial flutter noted on recent monitoring [id number] Cardiac Device Interrogation, pacemaker Procedure code (CPT) selection complete Assessment & Plan Assessment & Plan (1) Cardiac pacemaker in situ: Comment: Dual-chamber Medtronic pacemaker placed for bradycardia Code(s): Z95.0 - Presence of cardiac pacemaker Plan: See above Coding Level of Care Code Procedure Only Diagnoses Cardiac pacemaker in situ Z95.0 CPT Codes Cardiac Device Check - Cardiac Device 12: [id number] Cardiac Device Interrogation, pacemaker ([id number])
== END ==
PROVIDERS: PCP Internal Medicine; Visit Provider Internal Medicine Cardiovascular Disease
DX: Z95.0 Presence of cardiac pacemaker (principal)
CPT/HCPCS: 93294

== ENCOUNTER → 2024-02-12 23:59 | Outpatient (BNV) | payer OTHER, SELFPAY ==
--- NOTE | 2024-02-14 08:35 | MHC.OFFVIS ---
Intake Visit Reasons: Remote device check- Medtronic Allergies No Known Allergies [No Known Allergies*] Allergy (Verified 08/25/23 09:11) PFSH Medical History Bleeding hemorrhoids Cardiac pacemaker in situ Tubular adenoma of colon Prostate cancer Hypertension Surgical History History of right hemicolectomy History of prostate biopsy Pacemaker H/O colonoscopy H/O hernia repair Hx of tonsillectomy Family History Father Family history of Alzheimer's disease Mother Breast cancer Social History Alcohol intake: current Alcohol intake frequency: a few times a month Cigarettes Per Day: 1 Office Procedures Cardiac Device Check Cardiac Device Check Details: Remote pacemaker report generated 02/12/2024. Pacemaker function is adequate. No episodes of atrial fibrillation noted in the recent past [id number]-Zniqmk Cardiac Device Interrogation, pacemaker Procedure code (CPT) selection complete Assessment & Plan Assessment & Plan (1) Cardiac pacemaker in situ: Comment: Dual-chamber Medtronic pacemaker placed for bradycardia Code(s): Z95.0 - Presence of cardiac pacemaker Category: Medical Plan: See above Coding Level of Care Code Procedure Only Diagnoses Cardiac pacemaker in situ Z95.0 CPT Codes Cardiac Device Check - Cardiac Device 12: 31777-[id number] Cardiac Device Interrogation, pacemaker ([id number])
== END ==
PROVIDERS: PCP Internal Medicine; Visit Provider Internal Medicine Cardiovascular Disease
DX: I48.91 Unspecified atrial fibrillation (principal); Z95.0 Presence of cardiac pacemaker
CPT/HCPCS: 93294

== ENCOUNTER 2024-03-19 10:38 | Outpatient (REF) | payer OTHER, SELFPAY ==
[2024-03-19 12:01] LABS: Prostate Specific Antigen 0.33 ng/mL (<0.05-4.0)
== END 2024-03-19 10:39 | disposition home or self-care (01) ==
LOC: HO.LAB 10:38
PROVIDERS: Absent Provider Nurse Practitioner Family; Visit Provider Urology
DX: Z12.5 Encounter for screening for malignant neoplasm of prostate (principal); C61 Malignant neoplasm of prostate
CPT/HCPCS: 36415; 84153

== ENCOUNTER 2024-03-29 08:33 | Outpatient (AMB) | payer OTHER, SELFPAY ==
--- NOTE | 2024-03-29 08:54 | MHC.OFFVIS ---
Intake Visit Reasons: 7M Follow Up-PSA/PVR(set) Intake Note: Patient is present for LABS Follow Up. (Prostate Cancer) Results: PSA:0.33 Urology Med: None Antibiotic Allergy: None Blood Thinner: Apixaban (Eliquis) PVR: 78ml's Plug Cutting Machine Operator Required: No Accompanied by: Self / Same As Patient Allergies No Known Allergies [No Known Allergies*] Allergy (Verified 03/29/24 08:57) HPI Comments Details: Carlos Enrique is a pleasant male. He is a patient of Dr. Poole. He is seen for the following urologic conditions - prostate cancer - radiation cystitis Currently off oxybutynin Waking 3 times at night Does not feel this bothers him substantially We continue without bladder stability medications Continue to check PSA every 6 months out to 10 years given high-risk nature of disease Upcoming colonoscopy. Has had mucus per rectum. PSA 02/03 0.2, 11/04 0.26, 04/07 0.3 Radiation cystitis Presentation with intermittent hematuria Response to oxybutynin vitamin E Prostate cancer - grade group 4 EXBRT [address] Gan PSA 11.2 Initial biopsy demonstrated [place] 6, 7, 8 and 9 Underwent external beam radiation at [facility] with 18 months GnRH hormones Imaging - initial bone scan and CT scan showed no steven disease PFSH Medical History Bleeding hemorrhoids Cardiac pacemaker in situ Tubular adenoma of colon Prostate cancer Hypertension Surgical History History of right hemicolectomy History of prostate biopsy Pacemaker H/O colonoscopy H/O hernia repair Hx of tonsillectomy Family History Father Family history of Alzheimer's disease Mother Breast cancer Social History Alcohol intake: current Alcohol intake frequency: a few times a month Cigarettes Per Day: 1 Review of Systems Const Denies chills and Denies fever(s) Card Reports no additional complaints and Denies syncope Resp Denies cough GI Denies abdominal pain and Denies heartburn Reports as per HPI and Denies change in libido Neuro Denies syncope Psych Denies change in libido Endo Denies change in libido Physical Exam Const General: cooperative, healthy appearing, comfortable and no acute distress Orientation/consciousness: patient oriented x3 HEENT Face and sinus: Yes normal facial exam Mouth: moist mucous membranes Neck Neck: Yes normal visual inspection, Yes full ROM and Yes trachea midline Chest Chest palpation & inspection: normal inspection of the chest Resp Effort & Inspection: normal respiratory effort, able to speak in complete sentences and no respiratory distress GI Inspection: Yes normal to inspection Back/Spine/Pelvis Cervical Spine: normal cervical lordosis Thoracic/Lumbar Spine: thoracic and lumbar spine normal to inspection Skin General skin exam: no rashes or lesions noted Neuro General: patient oriented x3, gait normal, tone normal and moves all extremities Extrem General: Yes normal to inspection and Yes capillary refill normal Office Procedures Post Void Residual Post Residual Void Post Void Residual (PVR): 78 [id number] Void Residual by ultrasound Results AMB Urinalysis, Automated UA Leukoctes 0 Alisha/uL Last Edit by [email or web address] on 03/29/24 09:10 UA Nitrite Last Edit by Hector Vincent on 03/29/24 09:10 UA Urobilinogen 0.2 mg/dL Last Edit by [employer] on 03/29/24 09:10 UA Protein 15 mg/dL Last Edit by [employer] on 03/29/24 09:10 UA pH 5.5 Last Edit by [email or web address] on 03/29/24 09:10 UA Blood 200 Sudhir/uL Last Edit by [employer] on 03/29/24 09:10 UA Specific [place] 1.020 Last Edit by [email or web address] on 03/29/24 09:10 UA Ketone Last Edit by [employer] on 03/29/24 09:10 UA Bilirubin 0 mg/dL Last Edit by [employer] on 03/29/24 09:10 UA Glucose 0 mg/dL Last Edit by [employer] on 03/29/24 09:10 Results Reviewed Results Reviewed: Laboratory Last Values Urine pH (Auto) 5.5 03/29/24 08:58 Specific [place] (Auto) 1.020 03/29/24 08:58 Urine Protein (Auto) 15 mg/dL 03/29/24 08:58 Glucose (UA)(Auto) 0 mg/dL 03/29/24 08:58 Urine Blood (Auto) 200 Sudhir/uL 03/29/24 08:58 Urine Bilirubin (Auto) 0 mg/dL 03/29/24 08:58 Urine Urobilinogen (Auto) 0.2 mg/dL 03/29/24 08:58 Leukocyte Esterase (Auto) 0 Alisha/uL 03/29/24 08:58 Assessment & Plan Assessment & Plan (1) Radiation cystitis: Code(s): N30.40 - Irradiation cystitis without hematuria Category: Medical (2) Prostate cancer: Code(s): C61 - Malignant neoplasm of prostate Category: Medical Plan Six-month follow-up PSA Orders: Orders AMB Urinalysis Automated Today Z13.9 - Encounter for screening, unspecified AMB Post Void Residual by ultrasound Today R39.15 - Urgency of urination Prostate Specific Antigen 6 Months C61 - Malignant neoplasm of prostate Urine Cytology Today Z85.46 - Personal history of malignant neoplasm of prostate Patient Instructions: Imaging studies, laboratory and physical exam results were discussed and reviewed in detail. No major barriers to patient understanding were identified. An opportunity to ask questions regarding the treatment plan was provided. All questions were answered. The patient expressed understanding and agreement with the above treatment plan. The patient is aware they should contact our office by phone for worsening of their current condition or the appearance of new urologic symptoms. Compliance is encouraged with any medications and followup testing that is ordered. It is a privilege to participate in the urologic care of your patient. If you have any questions or concerns regarding treatment for the above conditions, or other urologic issues, please do not hesitate to contact me. The office telephone contact is [phone]. This note is constructed using voice recognition software. While every effort has been made to ensure accuracy gasket winder errors may have been included. Yours sincerely, Dr Italo Arora MD, [facility] - [facility] Providers of Expert, Compassionate Care for the Genitourinary System Coding Level of Care Code Est Pt Level 3 (59995) Diagnoses Radiation cystitis N30.40 Prostate cancer C61 CPT Codes Post Residual Void - PVR CPT Code: 15679-Kkno Void Residual by ultrasound ([id number])
== END 2024-03-29 09:21 | disposition home or self-care (01) ==
PROVIDERS: PCP Internal Medicine; Visit Provider Urology
DX: N30.40 Irradiation cystitis without hematuria (principal); C61 Malignant neoplasm of prostate; Z13.9 Encounter for screening, unspecified
CPT/HCPCS: 99213

== ENCOUNTER 2024-03-29 08:33 | Outpatient (REF) | payer OTHER, SELFPAY ==
[2024-03-29 16:14] LABS: Urine Cytology See Pathology rpt
== END 2024-03-29 08:34 | disposition home or self-care (01) ==
LOC: HO.LNP 08:33
PROVIDERS: PCP Internal Medicine; Visit Provider Urology
DX: Z85.46 Personal history of malignant neoplasm of prostate (principal); R39.15 Urgency of urination; N30.40 Irradiation cystitis without hematuria; C61 Malignant neoplasm of prostate; Z13.9 Encounter for screening, unspecified
CPT/HCPCS: 51798; 81003; 88112; 99212

== ENCOUNTER → 2024-04-05 09:22 | Outpatient (BNVA) | payer OTHER, SELFPAY | PROVIDERS: PCP Internal Medicine; Visit Provider Internal Medicine Cardiovascular Disease ==

== ENCOUNTER 2024-04-25 09:42 | Outpatient (REF) | payer OTHER, SELFPAY ==
[2024-04-25 11:09] LABS: Anion Gap 10 (12-20); Blood Urea Nitrogen 19 mg/dL (9-16); Calcium 9.6 mg/dL (8.4-10.2); Carbon Dioxide 24 mmol/L (22-29); Chloride 111 mmol/L (96-108); Estimated Glomerular Filt Rate 46; Glucose Random 94 mg/dL (60-115); Magnesium 2.2 mg/dL (1.6-2.6); Potassium 4.3 mmol/L (3.3-5.1); Sodium 141 mmol/L (135-145)
== END 2024-04-25 09:43 | disposition home or self-care (01) ==
LOC: HO.LAB 09:42
PROVIDERS: Absent Provider Nurse Practitioner Family; Visit Provider Internal Medicine Cardiovascular Disease
DX: I47.29 Other ventricular tachycardia (principal)
CPT/HCPCS: 36415; 80048; 83735

== ENCOUNTER 2024-05-07 08:45 | Outpatient (AMB) | payer OTHER, SELFPAY ==
[2024-05-07 08:46] VITALS: BP 120/78; PULSE 64; BMI 31.9
--- NOTE | 2024-05-07 08:46 | MHC.OFFVIS ---
Vital Signs 05/07/24 08:46 Height 5 ft 10 in Weight 222 lb 10.67 oz BMI 31.9 BP 120/78 Blood Pressure Location Lt brachial Position Sitting Pulse 64 Intake Visit Reasons: r/s x 2 04/05 6 mos followup Intake Note: 6 month follow-up with Medtronic check feeling good Organizational Development Consultant Required: No Allergies No Known Allergies [No Known Allergies*] Allergy (Verified 03/29/24 08:57) HPI Comments Details: Carlos Enrique comes for follow-up. Patient denies any new cardiac complaints. Denies any symptoms of prolonged palpitation irregular heartbeat. No heart failure symptoms. He said intermittently gets chest tightness in the precordial area sometimes when he rushes to do something sometimes when he is emotional. Sometimes at rest. Happens once every 2 weeks lasting for 2-5 minutes. No progressive symptoms. No lightheadedness, syncope. No bleeding issues. [facility] Medical History Bleeding hemorrhoids Cardiac pacemaker in situ Tubular adenoma of colon Prostate cancer Hypertension Surgical History History of right hemicolectomy History of prostate biopsy Pacemaker H/O colonoscopy H/O hernia repair Hx of tonsillectomy Family History Father Family history of Alzheimer's disease Mother Breast cancer Social History Alcohol intake: current Alcohol intake frequency: a few times a month Cigarettes Per Day: 1 Review of Systems Const Denies chills, Denies fatigue, Denies fever(s), Denies frequent falls, Denies weakness, Denies weight gain and Denies weight loss ENT Denies dizziness Card Denies chest pain, Denies leg edema, Denies lightheadedness, Denies palpitations, Denies dyspnea, Denies dyspnea on exertion, Denies orthopnea and Denies other (loss of consciousness) Resp Denies cough, Denies dyspnea and Denies dyspnea on exertion GI Denies hematochezia and Denies change in stool character Musc Denies abnormal gait, Denies muscle weakness, Denies numbness, Denies radiating pain into limb and Denies tingling Neuro Denies abnormal gait, Denies dizziness, Denies frequent falls, Denies numbness, Denies tingling and Denies weakness Endo Denies fatigue and Denies palpitations Physical Exam Vital Signs: Last Vital Signs Pulse 64 05/07/24 08:46 BP 120/78 05/07/24 08:46 BMI result Body Mass Index 31.9 Const General: cooperative, comfortable, no acute distress, alert and awake Nutritional Appearance: overweight Orientation/consciousness: patient oriented x3 Limitations: no limitations Neck Neck: Yes trachea midline, Yes supple and Yes no JVD Resp Effort & Inspection: normal respiratory effort Auscultation: clear to auscultation bilaterally Cardio Jugular venous distension: no JVD Palpation: normal PMI Rate: regular rate Rhythm: regular rhythm Heart sounds: S1 normal heart sound present and S2 normal heart sound present GI Auscultation: normal bowel sounds Skin General skin exam: no rashes or lesions noted Neuro General: patient oriented x3 and no focal motor deficits Extrem General: Yes no clubbing, cyanosis or edema Psych Appearance: grossly normal Office Procedures Cardiac Device Check Cardiac Device Check Details: Dual-chamber Medtronic pacemaker in place. Programmed in DDDR at 60 beats per minute. Ventricular pacing 100% time. No episodes of atrial flutter in the last 6 months. Multiple episodes of nonsustained ventricular tachycardia noted. Atrial sensing was excellent. Ventricular sensing could not be checked. Atrial ventricular pacing thresholds adequate. Atrial ventricular pacing lead impedance stable. Battery life is at 6.4 years [id number] Cardiac Device Check, pacemaker dual lead Procedure code (CPT) selection complete Assessment & Plan Assessment & Plan (1) Atrial flutter: Code(s): I48.92 - Unspecified atrial flutter Category: Medical Plan: Paroxysmal atrial flutter, intermittent episodes. He has no symptoms when he is in persistent atrial flutter with no signs of heart failure. Continue metoprolol therapy. No need for antiarrhythmic drug therapy continue full oral anticoagulation, currently on Eliquis 5 mg b.i.d.. Semi annual renal function test should be pursued. Annual CBC should be checked. (2) Cardiac pacemaker in situ: Comment: Dual-chamber Medtronic pacemaker placed for bradycardia Code(s): Z95.0 - Presence of cardiac pacemaker Category: Medical Plan: Cardiac pacemaker in-situ for complete heart block. Pacemaker is working well. Reprogrammed for adequate functioning. Will follow up remotely every 3 months and follow up in the clinic in 1 year's time. 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 Will refer him to EPS to consider upgrade to ICD. Continue metoprolol therapy. Will follow up in the clinic in 1 year's time. (4) Atypical chest pain: Code(s): R07.89 - Other chest pain Plan: Patient complain of atypical chest pain although with some concerning features with exertion. Will suggest Lexiscan myocardial perfusion imaging to evaluate for myocardial ischemia. Coding Level of Care Code Est Pt Level 4 (15237) Diagnoses Atrial flutter I48.92 Cardiac pacemaker in situ Z95.0 NSVT (nonsustained ventricular tachycardia) I47.29 Atypical chest pain R07.89 CPT Codes Cardiac Device Check - Cardiac Device 2: 76639-DC Cardiac Device Check, pacemaker dual lead ([id number])
== END 2024-05-07 09:04 | disposition home or self-care (01) ==
PROVIDERS: PCP Internal Medicine; Referring Provider Internal Medicine; Visit Provider Internal Medicine Cardiovascular Disease
DX: I48.92 Unspecified atrial flutter (principal); Z95.0 Presence of cardiac pacemaker; I47.29 Other ventricular tachycardia; R07.89 Other chest pain
CPT/HCPCS: 93280; 99214

== ENCOUNTER → 2024-05-07 08:45 | Outpatient (BNVA) | payer OTHER, SELFPAY | PROVIDERS: PCP Internal Medicine; Visit Provider Internal Medicine Cardiovascular Disease | DX: I48.92 Unspecified atrial flutter (principal); I47.29 Other ventricular tachycardia; R07.89 Other chest pain; Z45.018 Encounter for adjustment and management of other part of cardiac pacemaker | CPT/HCPCS: 93280; 99212 ==

== ENCOUNTER → 2024-05-14 23:59 | Outpatient (BNV) | payer OTHER, SELFPAY ==
--- NOTE | 2024-05-15 09:28 | MHC.OFFVIS ---
Intake Visit Reasons: Remote device check- Medtronic Allergies No Known Allergies [No Known Allergies*] Allergy (Verified 03/29/24 08:57) PFSH Medical History Bleeding hemorrhoids Cardiac pacemaker in situ Tubular adenoma of colon Prostate cancer Hypertension Surgical History History of right hemicolectomy History of prostate biopsy Pacemaker H/O colonoscopy H/O hernia repair Hx of tonsillectomy Family History Father Family history of Alzheimer's disease Mother Breast cancer Social History Alcohol intake: current Alcohol intake frequency: a few times a month Cigarettes Per Day: 1 Office Procedures Cardiac Device Check Cardiac Device Check Details: Remote pacemaker report generated 05/14/2024. Pacemaker function is adequate [id number] Cardiac Device Interrogation, pacemaker Procedure code (CPT) selection complete Assessment & Plan Assessment & Plan (1) Cardiac pacemaker in situ: Comment: Dual-chamber Medtronic pacemaker placed for bradycardia Code(s): Z95.0 - Presence of cardiac pacemaker Category: Medical Plan: See above Coding Level of Care Code Procedure Only Diagnoses Cardiac pacemaker in situ Z95.0 CPT Codes Cardiac Device Check - Cardiac Device 12: 92640-Ladcuf Cardiac Device Interrogation, pacemaker ([id number])
== END ==
PROVIDERS: PCP Internal Medicine; Visit Provider Internal Medicine Cardiovascular Disease
DX: R00.1 Bradycardia, unspecified (principal); Z95.0 Presence of cardiac pacemaker
CPT/HCPCS: 93294

== ENCOUNTER 2024-06-08 08:32 | Outpatient (AMB) | payer OTHER, SELFPAY ==
--- NOTE | 2024-06-08 08:59 | MHC.OFFVIS ---
Vital Signs 06/08/24 09:00 Height 5 ft 10 in Weight 225 lb 12.054 oz BMI 32.4 BP 146/84 H Blood Pressure Location Rt brachial Position Sitting Pulse 64 Pulse Source Pulse Oximeter Pulse Oximetry (%) 96 Oxygen Delivery Method Room Air Intake Visit Reasons: Rectal bleeding - date changed due to conflict. Intake Note: Relevant Flags or Indicators ? 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 Nikkie Monaco presents in office today for a scheduled initial assessment. CC; Since last visit; labs ordered ? 04/2024 per Cardiology. Rx ordered ? no. Diagnostics/images ordered ? none. Relevant GI Sx as reported per pt? Reflux -- Pt does take tums to treat. Pt does use tums frequently. ? Fecal abnormalities o?? Discolored? Pt reports some intermittent melena. o?? Constipation o?? Diarrhea -- very acute, sometimes incontinent of stool. ? Early satiety ? Bloating ? Abdominal distention ? Hx of any recent surgeries? None. Pt has hx of colo and EGD via C within the last few years. Pt has been treated for prostate cancer within the last few years. ? Pertinent FMHx? Mother - (breast cancer). 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 SMALL 06/25/2020 His colonoscopy on 09/20/2019 was noted for a tubular adenoma which was 20cm that I took out. He underwent a R hemicolectomy in 04/[address] Kelly. He also had a sessile serrated polyp with no dysplasia. The terminal segment which was removed was normal; lymph nodes normal. (Therefore, no malignancy in that lesion) Plan - Ronda Small MD: Recall colo in 3 years. TODAY'S VISIT Patient is here today for consultation. He was previously seen by Dr. Small, his last colonoscopy was in September of 2019. Large Cecal polyp found that was left in place unable to remove due to the size and location. Tubular that is adenoma. Patient had right colon resection in April of that year. Surgery was done by Dr. Kelly. Patient reports to have postprandial abdominal bloating. Decreased appetite, only able to eat small amounts. Reports frequent bowel movements often postprandial loose stools. Occasional blood in the stool specially when constipated. Patient is seeing Cardiology and is going for Lexiscan nuclear stress test that is scheduled for June. Patient was complaining of atypical chest pain. Patient also reports acid reflux and dyspepsia without dysphagia or odynophagia. Denies any nausea or vomiting PFSH Medical History Bleeding hemorrhoids Cardiac pacemaker in situ Tubular adenoma of colon Prostate cancer Hypertension Surgical History History of right hemicolectomy History of prostate biopsy Pacemaker H/O colonoscopy H/O hernia repair Hx of tonsillectomy Family History Father Family history of Alzheimer's disease Mother Breast cancer Social History Alcohol intake: current Alcohol intake frequency: a few times a month Cigarettes Per Day: 1 Review of Systems Const Denies weight gain and Denies weight loss ENT Reports no additional complaints, Denies dysphagia and Denies odynophagia Card Reports no additional complaints Resp Reports no additional complaints GI Denies abdominal pain, Denies belching, Denies melena, Reports bloating, Denies change in bowel habits, Reports constipation, Denies dysphagia, Denies excessive flatus, Reports early satiety, Denies dyspepsia, Reports heartburn, Denies diarrhea, Reports loose stools, Denies nausea, Denies odynophagia and Denies vomiting Reports no additional complaints Musc Reports no additional complaints Neuro Reports no additional complaints Psych Reports no additional complaints Endo Reports no additional complaints Physical Exam Vital Signs: Last Vital Signs Pulse 64 06/08/24 09:00 BP 146/84 H 06/08/24 09:00 Pulse Ox 96 06/08/24 09:00 Oxygen Delivery Method Room Air 06/08/24 09:00 BMI result Body Mass Index 32.4 Const General: healthy appearing, no acute distress and well developed Nutritional Appearance: well nourished and obese Orientation/consciousness: patient oriented x3 Resp Effort & Inspection: normal respiratory effort, able to speak in complete sentences, no tracheal deviation and symmetric chest movement Auscultation: clear to auscultation bilaterally Cardio Rate: regular rate GI Inspection: Yes normal to inspection, No distended and Yes obesity Palpation (GI): Soft to palpation, not firm, nontender and No hepatosplenomegaly present Auscultation: normal bowel sounds General: Yes no CVA tenderness Back/Spine/Pelvis Back: no CVA tenderness Skin General skin exam: elasticity normal, turgor normal and dry skin Neuro General: patient oriented x3 Psych Appearance: grossly normal Mental Status: mental status grossly normal Assessment & Plan Assessment & Plan (1) Bleeding hemorrhoids: Code(s): K64.9 - Unspecified hemorrhoids Category: Medical (2) History of right hemicolectomy: Comment: [facility] [place]-Dr. Kelly--05/06/20--6.5cm villous adenoma, separate serrated sessile adenoma. Code(s): Z90.49 - Acquired absence of other specified parts of digestive tract Category: Surgical (3) Tubulovillous adenoma: Code(s): D36.9 - Benign neoplasm, unspecified site (4) Postprandial diarrhea: Code(s): K52.9 - Noninfective gastroenteritis and colitis, unspecified (5) GERD (gastroesophageal reflux disease): Code(s): K21.9 - Gastro-esophageal reflux disease without esophagitis Qualifiers: Esophagitis presence: esophagitis presence not specified Qualified Code(s): K21.9 - Gastro-esophageal reflux disease without esophagitis Plan Patient will start taking omeprazole daily. Avoid dietary triggers and late night snacking. Smaller meals and more often. Patient was encouraged to increase fluid intake and activity to promote better bowel motility. Patient will start taking Citrucel 2 tablets every day with full glass of water. Follow-up in 2 months so we can discuss going for colonoscopy. Patient is undergoing stress testing for complaining of chest pain. He is agreeable to this plan and verbalizes understanding of instructions. He was given the opportunity to ask questions and all questions answered. Thank you for allowing me to participate in his care Medications: New omeprazole 40 mg PO DAILY 90 caps 3RF K21.9 - Gastro-esophageal reflux disease without esophagitis methylcellulose (laxative) (Citrucel) 1,000 mg (2 x 500 mg) PO DAILY 60 tabs 2RF Coding Level of Care Code New Pt Level 4 (63598) Diagnoses Bleeding hemorrhoids K64.9 History of right hemicolectomy Z90.49 Tubulovillous adenoma D36.9 Postprandial diarrhea K52.9 Gastroesophageal reflux disease, unspecified whether esophagitis present K21.9 Esophagitis presence: esophagitis presence not specified Time Spent (min) 45 Comment 30 minutes spent with patient and additional 15 minutes spent reviewing his records
[2024-06-08 09:00] VITALS: BP 146/84; PULSE 64; O2SAT 96; BMI 32.4
== END 2024-06-08 10:02 | disposition home or self-care (01) ==
PROVIDERS: PCP Internal Medicine; Visit Provider Nurse Practitioner Family
DX: K64.9 Unspecified hemorrhoids (principal); Z90.49 Acquired absence of other specified parts of digestive tract; D36.9 Benign neoplasm, unspecified site; K52.9 Noninfective gastroenteritis and colitis, unspecified; K21.9 Gastro-esophageal reflux disease without esophagitis
CPT/HCPCS: 99204

== ENCOUNTER → 2024-06-08 08:32 | Outpatient (BNVA) | payer OTHER, SELFPAY | PROVIDERS: PCP Internal Medicine; Visit Provider Nurse Practitioner Family | DX: K64.9 Unspecified hemorrhoids (principal); D36.9 Benign neoplasm, unspecified site; K52.9 Noninfective gastroenteritis and colitis, unspecified; K21.9 Gastro-esophageal reflux disease without esophagitis; Z90.49 Acquired absence of other specified parts of digestive tract | CPT/HCPCS: 99202 ==

== ENCOUNTER → 2024-07-05 08:09 | Outpatient (REF) | payer OTHER, SELFPAY ==
--- NOTE | ~2024-07-05 | NM_ITS ---
Lexiscan Myocardial perfusion study Indication: Atypical chest pain to evaluate for myocardial ischemia Technique: The patient was brought in for a Lexiscan perfusion study on 07/05/2024 and was injected 0.4 mg of Lexiscan intravenously. Within a minute of this injection 25 mCi of sestamibi was given intravenously. Images were obtained using the SPECT gamma camera interlaced with the gating device. Images were obtained in supine position. Resting perfusion study was performed on 07/10/2024. Patient was administered 25 mCi of sestamibi intravenously at rest. Images were then obtained in supine position. Images obtained without without CT attenuation. Total DLP 103 mGy-cm. Images were processed with the software and compared side to side in short axis, horizontal long axis and vertical long axis views. Findings: The stress perfusion study showed nontender images show severely reduced absent uptake in the basal inferior wall as well as moderately reduced uptake in the basal inferolateral wall and mildly reduced uptake in the lateral wall of the LV myocardium. Remainder of the LV myocardium is normally perfused.. The gated study shows normal LV systolic function with calculated LVEF of 48%. LV cavity is normal in size. The gated study shows reduced wall thickening and contraction of basal inferior and inferolateral segments. Resting study shows minimally improved uptake in the basal inferior, improved uptake in the basal inferolateral as well as lateral wall of the LV myocardium. Gating at rest reveals normal systolic wall motion with ejection fraction at 54%. The findings are consistent with reversible defect of the basal inferior, mid inferolateral and lateral wall suggestive of ischemia and circumflex territory.. NM/NM tk perf SPECT rest & str Impression: 1. Myocardial perfusion imaging study shows mild to moderate intensity moderately large area of reversible defect of the basal inferior, inferolateral and lateral wall suggestive of ischemia. 2. Gated LVEF is 48% with stress and 54% with rest 3. Transient ischemic dilatation not present Nondiagnostic changes on EKG. Electronically signed by: Jadon Navarro MD 07/10/2024 03:55 PM [facility]
--- NOTE | 2024-07-05 08:11 | CA_ITS ---
Acquisition Time: 2024-07-05 09:03:33 Total Exercise Time: 00:02:00 Test Indications: Abnormal ECG NSVT/AFLUTTER CP Medications: Protocol: LEXISCAN Max HR: 074 BPM 50% of Pred: 146 BPM Max BP: 142/074 mmHG Max Work Load: 1.0 METS Pharmacologic Stress Test with Lexiscan, with pt marching in chair, without any anginal symptoms, reported lightheadedness, with isolated PVCs, with normotensive response to injection. Non diagnostic EKG for ischemia. Pt was treated with Aminophylline 75mg IVP to reverse lexiscan. Nuclear images pending. Test reviewed with Dr. Navarro. Referred By: Jadon Navarro Overread By: KAJAL WASHINGTON
== END ==
LOC: HO.CARD 08:09
PROVIDERS: PCP Internal Medicine; Visit Provider Internal Medicine Cardiovascular Disease
DX: R07.89 Other chest pain (principal)
CPT/HCPCS: 78452; 93017; A9500; J0280; J2785

== ENCOUNTER → 2024-07-05 08:11 | Outpatient (BNV) | payer OTHER, SELFPAY | PROVIDERS: PCP Internal Medicine; Visit Provider Nurse Practitioner Family | DX: R07.9 Chest pain, unspecified (principal) | CPT/HCPCS: 78452; 93016; 93018 ==

== ENCOUNTER → 2024-08-14 23:59 | Outpatient (BNV) | payer OTHER, SELFPAY ==
--- NOTE | 2024-08-14 16:18 | MHC.OFFVIS ---
Intake Visit Reasons: Remote device check- Medtronic Allergies No Known Allergies [No Known Allergies*] Allergy (Verified 06/08/24 09:00) PFSH Medical History Bleeding hemorrhoids Cardiac pacemaker in situ Tubular adenoma of colon Prostate cancer Hypertension Surgical History History of right hemicolectomy History of prostate biopsy Pacemaker H/O colonoscopy H/O hernia repair Hx of tonsillectomy Family History Father Family history of Alzheimer's disease Mother Breast cancer Social History Alcohol intake: current Alcohol intake frequency: a few times a month Cigarettes Per Day: 1 Office Procedures Cardiac Device Check Cardiac Device Check Details: Remote pacemaker report generated 08/14/2024. Pacemaker function is adequate [id number] Cardiac Device Interrogation, pacemaker Procedure code (CPT) selection complete Assessment & Plan Assessment & Plan (1) Cardiac pacemaker in situ: Comment: Dual-chamber Medtronic pacemaker placed for bradycardia Code(s): Z95.0 - Presence of cardiac pacemaker Category: Medical Plan: See above Coding Level of Care Code Procedure Only Diagnoses Cardiac pacemaker in situ Z95.0 CPT Codes Cardiac Device Check - Cardiac Device 12: [id number] Cardiac Device Interrogation, pacemaker ([id number])
== END ==
PROVIDERS: PCP Internal Medicine; Visit Provider Internal Medicine Cardiovascular Disease
DX: R00.1 Bradycardia, unspecified (principal); Z95.0 Presence of cardiac pacemaker
CPT/HCPCS: 93294

== ENCOUNTER 2024-08-24 08:24 | Outpatient (AMB) | payer OTHER, SELFPAY ==
[2024-08-24 08:34] VITALS: PULSE 68; O2SAT 96; BMI 32.5
--- NOTE | 2024-08-24 08:34 | A.OFFVIS_ITS ---
Vital Signs 08/24/24 08:34 Height 5 ft 10 in Weight 226 lb 10.163 oz BMI 32.5 Blood Pressure Location Rt brachial Position Sitting Pulse 68 Pulse Source Pulse Oximeter Pulse Oximetry (%) 96 Oxygen Delivery Method Room Air Comment Pt recently had a cigarette Intake Visit Reasons: 2 mos FUV. Intake Note: ESTABLISHED PATIENT Reason; 2 mos FUV. Changes/concerns? Pt states metamucil has been helping. He is slightly more regular than he had been previously. However, he is concerned regarding presence of melena and mucus in the stool. Pharmacy verified? [facility] Allergies No Known Allergies [No Known Allergies*] Allergy (Verified 08/24/24 08:34) HPI HPI 2 mos FUV.: Details: LAST VISIT Bleeding hemorrhoids History of right hemicolectomy Tubulovillous adenoma Postprandial diarrhea GERD (gastroesophageal reflux disease) Plan Patient will start taking omeprazole daily. Avoid dietary triggers and late night snacking. Smaller meals and more often. Patient was encouraged to increase fluid intake and activity to promote better bowel motility. Patient will start taking Citrucel 2 tablets every day with full glass of water. Follow-up in 2 months so we can discuss going for colonoscopy. Patient is undergoing stress testing for complaining of chest pain. He is agreeable to this plan and verbalizes understanding of instructions. He was given the opportunity to ask questions and all questions answered. ? Thank you for allowing me to participate in his care Medications New omeprazole 40 mg PO DAILY 90 caps 3RF K21.9 methylcellulose (laxative) (Citrucel) 1,000 mg (2 x 500 mg) PO DAILY 60 tabs 2RF TODAY'S VISIT: Patient is here today for follow-up. Patient reports that he is taking Metamucil and bowels are more formed. No longer is experiencing diarrhea, however he reports that now she is comes. Struggles to have a bowel movement. Patient had abnormal nuclear stress test and is going for CTA in September. Patient denies chest pain, occasional shortness of breath with activity. Patient denies melena, however she does reports occasional blood in his stool after bowel movement. Patient is on Eliquis. Patient denies dyspepsia, dysphagia or odynophagia. Takes omeprazole and his symptoms of acid are suppressed. [facility] Medical History Bleeding hemorrhoids Cardiac pacemaker in situ Tubular adenoma of colon Prostate cancer Hypertension Surgical History History of right hemicolectomy History of prostate biopsy Pacemaker H/O colonoscopy H/O hernia repair Hx of tonsillectomy Family History Father Family history of Alzheimer's disease Mother Breast cancer Social History Alcohol intake: current Alcohol intake frequency: a few times a month Cigarettes Per Day: 1 Review of Systems Const Denies weight gain and Denies weight loss ENT Reports no additional complaints, Denies dysphagia and Denies odynophagia Card Reports no additional complaints Resp Reports no additional complaints GI Denies abdominal pain, Denies belching, Denies melena, Denies bloating, Denies change in bowel habits, Denies dysphagia, Denies excessive flatus, Denies dyspepsia, Denies heartburn, Denies diarrhea, Denies loose stools, Denies nausea, Denies odynophagia and Denies vomiting Reports no additional complaints Musc Reports no additional complaints Neuro Reports no additional complaints Psych Reports no additional complaints Endo Reports no additional complaints Physical Exam Vital Signs: Last Vital Signs Pulse 68 08/24/24 08:34 Pulse Ox 96 08/24/24 08:34 Oxygen Delivery Method Room Air 08/24/24 08:34 BMI result Body Mass Index 32.5 Const General: healthy appearing and no acute distress Nutritional Appearance: obese Orientation/consciousness: patient oriented x3 Resp Effort & Inspection: normal respiratory effort, able to speak in complete sentences, no tracheal deviation and symmetric chest movement Auscultation: clear to auscultation bilaterally Cardio Rate: regular rate GI Inspection: Yes normal to inspection, No distended and Yes obesity Palpation (GI): Soft to palpation, not firm, nontender and No hepatosplenomegaly present Auscultation: normal bowel sounds General: Yes no CVA tenderness Back/Spine/Pelvis Back: no CVA tenderness Skin General skin exam: elasticity normal, turgor normal and dry skin Neuro General: patient oriented x3 Psych Appearance: grossly normal Mental Status: mental status grossly normal Assessment & Plan Assessment & Plan (1) Bleeding hemorrhoids: Code(s): K64.9 - Unspecified hemorrhoids Category: Medical (2) History of right hemicolectomy: Code(s): Z90.49 - Acquired absence of other specified parts of digestive tract Category: Surgical (3) Tubulovillous adenoma: Code(s): D36.9 - Benign neoplasm, unspecified site (4) Postprandial diarrhea: Code(s): K52.9 - Noninfective gastroenteritis and colitis, unspecified (5) GERD (gastroesophageal reflux disease): Code(s): K21.9 - Gastro-esophageal reflux disease without esophagitis Qualifiers: Esophagitis presence: esophagitis presence not specified Qualified Code(s): K21.9 - Gastro-esophageal reflux disease without esophagitis Plan Abnormal nuclear stress test. Scheduled for CTA in September I will see patient in October and we will schedule colonoscopy as soon as we able to. Occasional blood in his stools after bowel movement. Patient does report that he has to strain. Will send a script for Dulcolax. Patient was encouraged to increase fluid intake and activity to promote bowel activity. Patient will return in October so we can discuss going for colonoscopy. He is agreeable to this plan and verbalizes understanding of instructions. Continue omeprazole daily. Avoid dietary triggers and late night snacking, staying upright for minimum 3 hours after meals discussed with patient. He is agreeable to current plan of care and verbalizes understanding of instructions. He was given the opportunity to ask questions and all questions answered Thank you for allowing me to participate in his care Medications: New bisacodyl (Dulcolax (bisacodyl)) 10 mg (2 x 5 mg) PO BEDTIME 180 tabs 4RF Coding Level of Care Code Est Pt Level 3 (84466) Diagnoses Bleeding hemorrhoids K64.9 History of right hemicolectomy Z90.49 Tubulovillous adenoma D36.9 Postprandial diarrhea K52.9 Gastroesophageal reflux disease, unspecified whether esophagitis present K21.9 Esophagitis presence: esophagitis presence not specified Time Spent (min) 25 Comment 15 minutes spent with patient and additional 10 minutes spent reviewing his records
== END 2024-08-24 09:02 | disposition home or self-care (01) ==
PROVIDERS: PCP Internal Medicine; Visit Provider Nurse Practitioner Family
DX: K64.9 Unspecified hemorrhoids (principal); Z90.49 Acquired absence of other specified parts of digestive tract; D36.9 Benign neoplasm, unspecified site; K52.9 Noninfective gastroenteritis and colitis, unspecified; K21.9 Gastro-esophageal reflux disease without esophagitis
CPT/HCPCS: 99213

== ENCOUNTER → 2024-08-24 08:24 | Outpatient (BNVA) | payer OTHER, SELFPAY | PROVIDERS: PCP Internal Medicine; Visit Provider Nurse Practitioner Family | DX: K21.9 Gastro-esophageal reflux disease without esophagitis (principal); K52.9 Noninfective gastroenteritis and colitis, unspecified; K64.9 Unspecified hemorrhoids; Z90.49 Acquired absence of other specified parts of digestive tract; D36.9 Benign neoplasm, unspecified site | CPT/HCPCS: 99212 ==

== ENCOUNTER 2024-08-30 09:43 | Emergency (ER) | payer OTHER, SELFPAY ==
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
[2024-08-30 09:55] VITALS: BP 156/92; PULSE 71; RESP 16; TEMP 37; O2SAT 96; BMI 32.3
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
[2024-08-30 14:51] VITALS: BP 152/93; PULSE 65; RESP 20; TEMP 36.3; O2SAT 95
[2024-08-30 14:52] VITALS: BP 152/93; PULSE 65; RESP 20; TEMP 36.3; O2SAT 95
--- OUTSIDE RECORDS SUMMARY | 2024-08-30 19:35 | XMS_ITS | Continuity of Care Document ---
Author Name [facility] Organization [facility] Care Team Providers Care Employee Development Director Name Role Phone [facility] Unavailable Unavailable Problems Combined list of problems from Department of Defense and Veterans Affairs facilities. It does not include entries that were removed or entered in error. Problem Status Onset Date Problem Type Date of Resolution Comments Source Atrial flutter Active Condition Sep Entered By: WIN MCMULLEN Comment: New Dx SEP 02: Pacemaker Placed [facility]; now on EliquisFeb 2018 Entered By: WIN MCMULLEN Comment: A Flutter Noted Incidentally During Eval for Prostate Bx MOBILE Cardiac pacemaker in situ Active Condition Dec 01, 2018 Entered By: EMANUEL MATTHEWS Comment: placed 10/03 for a-flutter w/slow ventricular respone,heart block MOBILE CKD stage 3 Active Condition Jun 17, 2024 Entered By: JD GRAF Comment: 10/17/23 GFR 42 [facility] Eczema Active Condition [facility] Elevated PSA Active Condition Jun 17, 2024 Entered By: JD GRAF Comment: Prostate Bx was scheduled SEP 02 [facility] but cancelled d/t AFlutter dx [facility]BILE GERD - Gastro-esophageal reflux disease Active Condition [facility] Gout Active Condition MO[facility]LE H/O: recreational drug use Active Condition Jun 20, 2024 Entered By: JD GRAF Comment: cocaine, marijuana [facility] History of alcohol abuse Active Condition Jun 20, 2024 Entered By: JD GRAF Comment: 06/20/24 states he drinks a nip on the holidays [facility] Hyperlipidemia (SNOMED CT 83398389) Active Condition MOBILE Hypertension (SNOMED CT 21484730) Active Condition [facility] Lesion of liver Active Condition Jun 17, 2024 Entered By: JD GRAF Comment: 09/14/23 CT abdomen - Multifocal cystic lesions in the liver [facility] Long-term current use of anticoagulant Active Condition Jun 17, 2024 Entered By: JD GRAF Comment: Apixaban for AFlutter [facility] myocardial perfusion scan Active Condition Dec 01, 2018 Entered By: EMANUEL MATTHEWS Comment: 10/03 negative and scanned into [facility]LE Nicotine dependence Active Condition Jun 24, 2024 Entered By: JD GRAF Comment: 3 cig/day since age 7 MOBILE Obesity Active Condition Jun 24 Entered By: JD GRAF Comment: 06/20/24 BMI 32 [facility] 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 [facility] Osteoarthritis of multiple joints Active Condition [facility] Prediabetes Active Condition Jun 17, 2024 Entered By: JD GRAF Comment: 10/17/23 A1c 6.1 [facility] Primary malignant neoplasm of prostate Active Condition Jun 20, 2024 Entered By: JD GRAF Comment: hx radiation approx 2021 MOBILE PTSD - Post-traumatic stress disorder [facility] Refractive error (ICD-9-CM 367.9) Active Condition [facility] Screening for malignant neoplasm of colon done Active Condition Jun 14, 2012 Entered By: EMANUEL MATTHEWS Comment: colonoscopy dr mehta 05/26 no poylps or ticsNov 2023 Entered By: JD GRAF Comment: 09/2019 colonoscopy unable to full remove and one completely excised tubular adenoma MOBILE Secondary erectile dysfunction Active Condition [facility] ACCRETIONS ON TEETH Inactive Condition 12/02/2011 [facility] Chest Findings Inactive Condition 02/07/2012 Sep 19, 2009 Entered By: WIN MCMULLEN Comment: CXR AUG 2009 - No Active Disease MOBILE Dry Skin (ICD-9-CM 706.8) Inactive Condition 12/02/2011 [facility] Folliculitis * (ICD-9-CM 704.8) Inactive Condition 12/02/2011 [facility] Hyperglycemia Inactive Condition 06/17/2024 [facility] Impaired Fasting Glucose (ICD-9-CM 790.21) Inactive Condition 06/17/2024 MOBILE Lack of Housing (ICD-9-CM V60.0) Inactive Condition 06/17/2024 [facility] Low back pain Inactive Condition 06/20/2024 [facility] Melasma * [facility] Inactive Condition 06/20/2024 MOBILE Tinea * (ICD-9-CM 110.9) Inactive Condition 02/07/2012 [facility] Unemployment * Inactive Condition 06/17/2024 [facility] UNSPECIFIED DENTAL CARIES Inactive Condition 12/02/2011 [facility] Diagnosis: ICD-10-CM L60.3 Nail dystrophy [facility] Diagnosis: ICD-10-CM Z04.89 Encounter for examination and observation for oth reasons Active Diagnosis MOBILE Diagnosis: ICD-10-CM K92.1 Melena Active Diagnosis MOBILE Diagnosis: ICD-10-CM K03.81 Cracked tooth Active Diagnosis [facility] Diagnosis: ICD-10-CM Z46.0 Encounter for fit/adjst of spectacles and contact lenses Active Diagnosis [facility] Diagnosis: ICD-10-CM H40.013 Open angle with borderline findings, low risk, bilateral Active Diagnosis [facility] Diagnosis: ICD-10-CM R27.0 Ataxia, unspecified Active Diagnosis [facility] Diagnosis: ICD-10-CM R06.00 Dyspnea, unspecified Active Diagnosis MOBILE Medications Combined list of outpatient medications from Department of Defense and Veterans Affairs facilities.Medications provided include 1) outpatient medications from the last 15 months, and 2) patient-reported medications. Medication Details Route Status Patient Instructions Prescription Expires Prescription Number Last Dispense Date Ordering Provider Order Date Order Qty Source ALLOPURINOL 300MG TAB TAKE ONE TABLET BY MOUTH ONCE DAILY FOR GOUT ORAL ACTIVE 07/17/2025 [id number] 4 Blaine GRAF 2023 90 [place] ALLOPURINOL 300MG TAB TAKE ONE TABLET BY MOUTH ONCE DAILY FOR GOUT ORAL DISCONT INUED 04/29/2024 [id number] AARON MATTHEWS 2022 90 [place] AMLODIPINE BESYLATE 10MG TAB TAKE ONE TABLET BY MOUTH ONCE DAILY FOR BLOOD PRESSURE /HEART, DO NOT TAKE WITH GRAPEFRU IT JUICE ORAL ACTIVE 06/25/2025 [id number] 4 Blaine GRAF 2023 90 [place] AMLODIPINE BESYLATE 10MG TAB TAKE ONE TABLET BY MOUTH ONCE DAILY FOR BLOOD PRESSURE /HEART, DO NOT TAKE WITH GRAPEFRU IT JUICE ORAL DISCONT INUED 06/05/2024 [id number] 4 DARRELL LAMBERT F 2023 90 [place] AMLODIPINE BESYLATE 10MG TAB TAKE ONE TABLET BY MOUTH ONCE DAILY FOR BLOOD PRESSURE /HEART, DO NOT TAKE WITH GRAPEFRU IT JUICE ORAL DISCONT INUED 04/29/2024 [id number] 4 AARON MATTHEWS 2022 90 [place] AMOXICILLIN TRIHYDRATE 500MG CAP TAKE ONE CAPSULE BY MOUTH FOUR TIMES A DAY ORAL 08/16/2024 [id number] 4 JOSHUA MORALES 2023 28 [facility] APIXABAN 5MG TAB TAKE ONE TABLET BY MOUTH TWICE DAILY ORAL ACTIVE 08/25/2025 [id number] 5 Blaine GRAF 2024 180 [place] APIXABAN 5MG TAB TAKE ONE TABLET BY MOUTH TWICE DAILY ORAL DISCONT INUED 08/19/2024 [id number] 4 DARRELL LAMBERT F 2023 180 [place] APIXABAN 5MG TAB TAKE ONE TABLET BY MOUTH TWICE DAILY ORAL DISCONT INUED 04/29/2024 [id number] 4 AARON MATTHEWS 2022 180 [place] BISACODYL 5MG TAB,EC TAKE TWO TABLETS BY MOUTH AT BEDTIME FOR BOWELS - LAXATIVE ORAL ACTIVE 08/25/2025 [id number] 5 ADRI LLOYD 2024 180 [place] CEPHALEXIN 500MG CAP TAKE ONE CAPSULE BY MOUTH EVERY 8 HOURS FOR INFECTIO N ORAL 07/20/2023 [id number] CORVI,FRA NCESCO 2022 21 [facility] CHLORHEXIDI NE GLUCONATE 0.12% RINSE,ORAL RINSE WITH 10ML BY MOUTH TWICE DAILY FOR 21 DAYS ORAL 08/16/2024 [id number] JOSHUA MORALES 2023 473 [facility] COAL TAR 1% SHAMPOO SHAMPOO MODERATE AMOUNT TOPICALL Y TWICE A WEEK NEEDED FOR SEBORRHE IC DERMATIT IS TOPICA L DISCONT INUED BY PROVIDE R 06/21/2025 [id number] 4 Blaine GRAF 2023 360 [place] COAL TAR 2% SHAMPOO SHAMPOO SUFFICIE NT AMOUNT TOPICALL Y TWICE A WEEK NEEDED FOR SEBORRHE IC DERMATIT IS TOPICA L ACTIVE 06/28/2025 [id number] 4 Blaine GRAF 2023 480 [place] HYDROCODONE 5MG/ACETAMI NOPHEN 325MG TAB TAKE 1 TABLET BY MOUTH EVERY 6 HOURS NEEDED FOR PAIN ORAL 08/16/2024 [id number] 4 JOSHUA MORALES 2023 10 [facility] IBUPROFEN 600MG TAB TAKE ONE TABLET BY MOUTH EVERY 8 HOURS NEEDED FOR PAIN TAKE WITH FOOD ORAL 08/16/2024 [id number] 4 Blaine GRAF 2023 90 [place] METOPROLOL SUCCINATE 50MG TAB,SA TAKE ONE TABLET BY MOUTH ONCE DAILY FOR BLOOD PRESSURE /HEART ORAL ACTIVE 08/25/2025 [id number] 5 Blaine GRAF 2024 90 [place] METOPROLOL SUCCINATE 50MG TAB,SA TAKE ONE TABLET BY MOUTH ONCE DAILY FOR BLOOD PRESSURE /HEART ORAL DISCONT INUED 06/17/2024 [id number] 4 NEISHA WASHINGTONNikkie Lara 2022 90 [facility] OMEPRAZOLE 20MG CAP,EC TAKE TWO CAPSULES BY MOUTH ONCE DAILY ORAL ACTIVE 06/09/2025 [id number] 4 ADRI LLOYD YNA 2023 180 [facility] OXYBUTYNIN CL 10MG TAB,SA TAKE ONE TABLET BY MOUTH ONCE DAILY FOR BLADDER INSTABIL ITY ORAL ACTIVE 07/22/2025 [id number] 4 Blaine GRAF 2023 90 [place] OXYBUTYNIN CL 10MG TAB,SA TAKE ONE TABLET BY MOUTH ONCE DAILY FOR BLADDER INSTABIL ITY ORAL DISCONT INUED 04/29/2024 [id number] 4 AARON MATTHEWS 2022 90 [place] PANTOPRAZOL E NA 20MG TAB,EC TAKE ONE TABLET BY MOUTH EVERY MORNING 30 MINUTES BEFORE BREAKFAS T ORAL DISCONT INUED BY PROVIDE R 04/29/2024 [id number] 4 AARON MATTHEWS 2022 90 [place] PSYLLIUM PWDR,ORAL TAKE 1 TABLESPO ONFUL BY MOUTH ONCE DAILY (MIX WITH AT LEAST 8OZ. OF WATER OR OTHER FLUID) ORAL ACTIVE 06/21/2025 [id number] 4 Blaine GRAF 2023 780 [place] PSYLLIUM PWDR,ORAL TAKE 1 TABLESPO ONFUL BY MOUTH ONCE DAILY (MIX WITH AT LEAST 8OZ. OF WATER OR OTHER FLUID) ORAL DISCONT INUED 06/13/2025 [id number] ADRI LLOYD 2023 780 [facility] SILDENAFIL CITRATE 100MG TAB TAKE ONE TABLET BY MOUTH ONCE DAILY NEEDED TAKE 1 HOUR PRIOR TO SEXUAL ACTIVITY ORAL ACTIVE 06/23/2025 [id number] 4 Blaine GRAF 2023 18 [place] SILDENAFIL CITRATE 100MG TAB TAKE ONE TABLET BY MOUTH ONCE DAILY NEEDED TAKE 1 HOUR PRIOR TO SEXUAL ACTIVITY ORAL DISCONT INUED 07/31/2024 [id number] 4 DARRELL LAMBERT RMEN F 2023 18 [place] SILDENAFIL CITRATE 100MG TAB TAKE ONE TABLET BY MOUTH ONCE DAILY NEEDED TAKE 1 HOUR PRIOR TO SEXUAL ACTIVITY ORAL DISCONT INUED 03/08/2025 [id number] 4 DARRELL LAMBERT RMEN F 2023 6 [place] SILDENAFIL CITRATE 100MG TAB TAKE ONE TABLET BY MOUTH ONCE DAILY NEEDED TAKE 1 HOUR PRIOR TO SEXUAL ACTIVITY ORAL DISCONT INUED 07/27/2024 [id number] 4 AARON MATTHEWS 2022 6 [place] SILDENAFIL CITRATE 100MG TAB TAKE ONE TABLET BY MOUTH ONCE DAILY NEEDED TAKE 1 HOUR PRIOR TO SEXUAL ACTIVITY ORAL DISCONT INUED (EDIT) 09/24/2023 [id number] AARON MATTHEWS 2022 6 [place] SODIUM FLUORIDE 1.1% TOOTHPASTE BRUSH SMALL AMOUNT TO TEETH TWICE DAILY FOR TOOTH DECAY PREVENTI ON DENTAL 07/21/2024 [id number] TE CARTER 2022 204 [facility] Immunizations Combined list of available immunizations from the Department of Defense and Veterans Affairs facilities. Immunization Series Date Given Administered By Site Reaction Lot Number CVX Code Drug Party Plan Demonstrator Status Comments Source COVID-19 (MODERNA), MRNA, LNP-S, PF, 50 MCG/0.5 ML (AGES 12+ YEARS) 2023 BANDAR MORALES RIGHT DELTO ID [id number] 312 complet ed [place] INFLUENZA, HIGH-DOSE, TRIVALENT, PF 2023 BANDAR MORALES LEFT DELTO ID [id number] 135 complet ed [place] INFLUENZA, HIGH-DOSE, QUADRIVALENT 2022 IRASEMACAROLaWngFAYE SA GEOVANNI LEFT DELTO ID [id number] 197 complet ed [facility] INFLUENZA VACCINE, QUADRIVALENT, ADJUVANTED 2021 205 complet ed [place] COVID-19 (MODERNA), MRNA, LNP-S, PF, 100 MCG OR 50 MCG DOSE 3 2020 207 complet ed MOD; [id number]; 2 [place] INFLUENZA VACCINE, QUADRIVALENT, ADJUVANTED 2020 205 complet ed [facility] ZOSTER RECOMBINANT 2 2020 187 complet ed [place] COVID-19 (MODERNA), MRNA, LNP-S, PF, 100 MCG/0.5 ML DOSE 2 2020 207 complet ed MOD; [id number]; 1 [place] COVID-19 (MODERNA), MRNA, LNP-S, PF, 100 MCG/0.5 ML DOSE 1 2020 207 complet ed MOD; [id number]; 1 [place] INFLUENZA, INJECTABLE, QUADRIVALENT, PRESERVATIVE FREE 2019 150 complet ed [place] INFLUENZA, INJECTABLE, QUADRIVALENT 2017 158 complet ed Site: Left Deltoid [place] ZOSTER RECOMBINANT 1 2017 187 complet ed [place] INFLUENZA, SEASONAL, INJECTABLE 2016 141 complet ed stand down [facility] INFLUENZA, SEASONAL, INJECTABLE 2016 141 complet ed Site: Left Deltoid [facility] PNEUMOCOCCAL POLYSACCHARID E [id number] 2016 33 complet ed [place] FLU,3 YRS (HISTORICAL) 2015 88 complet ed [place] PNEUMOCOCCAL CONJUGATE PCV 13 2015 133 complet ed [place] FLU,3 YRS (HISTORICAL) 2015 88 complet ed [facility] ZOSTER (SHINGLES) (HISTORICAL) 2013 121 complet ed Proximal Right Arm [place] FLU,3 YRS (HISTORICAL) 2013 88 complet ed Site: Left Deltoid [facility] FLU,3 YRS (HISTORICAL) 2012 88 complet ed Site: Left Deltoid [place] DTAP, UNSPECIFIED FORMULATION 2011 107 complet ed Site: Left Deltoid [facility] FLU,3 YRS (HISTORICAL) 2011 88 complet ed Site: Left Deltoid [facility] FLU,3 YRS (HISTORICAL) 2010 88 complet ed Site: Left Deltoid [place] FLU,3 YRS (HISTORICAL) 2008 88 complet ed Site: Right Deltoid [place] PNEUMOCOCCAL, UNSPECIFIED FORMULATION 2008 109 complet ed [place] Results Combined list of recent chemistry, hematology and other laboratory results from Department of Defense and Veterans Affairs, ranging from 15 months to all on record, depending upon the facility. Order Name Results Value Reference Range Date Interpretation Specimen Comments Source BASIC METABOLIC PANEL (fasting) UREA NITROGEN [MASS/VOLUM E] IN SERUM OR PLASMA 26 mg/dL 7 - 25 10/16 H Specimen Type: SERUM No comment entered. Ordering Provider: TOM MATTHEWS Report Released Date/Time: Sep 07, 2023 09:48 AM Reporting Lab: [facility] [address] [facility] [address] Performing Lab: [facility] [address] [facility] [address] [facility] BASIC METABOLIC PANEL (fasting) GLUCOSE [MASS/VOLUM E] IN SERUM OR PLASMA 84 mg/dL 65 - 100 10/16 Specimen Type: SERUM No comment entered. Ordering Provider: TOM MATTHEWS Report Released Date/Time: Sep 07, 2023 09:48 AM Reporting Lab: [facility] [address] [facility] [address] Performing Lab: [facility] [address] [facility] [address] [facility] BASIC METABOLIC PANEL (fasting) SODIUM [MOLES/VOLU ME] IN SERUM OR PLASMA 139 mmol/L 135 - 145 10/16 Specimen Type: SERUM No comment entered. Ordering Provider: TOM MATTHEWS IE Report Released Date/Time: Sep 07, 2023 09:48 AM Reporting Lab: [facility] [address] [facility] [address] Performing Lab: [facility] [address] [facility] [address] [facility] BASIC METABOLIC PANEL (fasting) POTASSIUM [MOLES/VOLU ME] IN SERUM OR PLASMA 4.8 mmol/L 3.5 - 5.0 10/16 Specimen Type: SERUM No comment entered. Ordering Provider: TOM MATTHEWS IE Report Released Date/Time: Sep 07, 2023 09:48 AM Reporting Lab: [facility] [address] [facility] [address] Performing Lab: [facility] [address] [address] [facility] BASIC METABOLIC PANEL (fasting) CHLORIDE [MOLES/VOLU ME] IN SERUM OR PLASMA 109 mmol/L 100 - 110 10/16 Specimen Type: SERUM No comment entered. Ordering Provider: TOM MATTHEWS IE Report Released Date/Time: Sep 07, 2023 09:48 AM Reporting Lab: [facility] [address] [address] Performing Lab: [facility] [address] [address] [facility] BASIC METABOLIC PANEL (fasting) CARBON DIOXIDE, TOTAL [MOLES/VOLU ME] IN SERUM OR PLASMA 23 meq/L 20 - 30 10/16 Specimen Type: SERUM No comment entered. Ordering Provider: TOM MATTHEWS IE Report Released Date/Time: Sep 07, 2023 09:48 AM Reporting Lab: [facility] [address] [facility] [address] Performing Lab: [facility] [address] [address] [facility] BASIC METABOLIC PANEL (fasting) CREATININE [MASS/VOLUM E] IN SERUM OR PLASMA 1.68 mg/dL 0.50 - 1.40 10/16 H Specimen Type: SERUM No comment entered. Ordering Provider: TOM MATTHEWS IE Report Released Date/Time: Sep 07, 2023 09:48 AM Reporting Lab: [facility] [address] [address] Performing Lab: [facility] [address] [address] [facility] BASIC METABOLIC PANEL (fasting) GLOMERULAR FILTRATION RATE/1.73 SQ M.PREDICTED [VOLUME RATE/AREA] IN SERUM, PLASMA OR BLOOD BY CREATININE- BASED FORMULA (CKD-EPI 2020) 42 mL/min 60 10/16 L Specimen Type: SERUM No comment entered. Ordering Provider: TOM MATTHEWS IE Report Released Date/Time: Sep 07, 2023 09:48 AM Reporting Lab: [facility] [address] [address] Performing Lab: [facility] [address] [address] [facility] CBC AND DIFF (AUTO) LEUKOCYTES [#/VOLUME] IN BLOOD BY AUTOMATED COUNT 4.23 10*3/u L 4.50 - 11.00 10/16 L Specimen Type: BLOOD No comment entered. Ordering Provider: TOM MATTHEWS IE Report Released Date/Time: Sep 07, 2023 09:48 AM Reporting Lab: [facility] [address] Performing Lab: [facility] [address] [facility] CBC AND DIFF (AUTO) ERYTHROCYTE S [#/VOLUME] IN BLOOD BY AUTOMATED COUNT 4.19 10*6/u L 4.23 - 5.66 10/16 L Specimen Type: BLOOD No comment entered. Ordering Provider: TOM MATTHEWS IE Report Released Date/Time: Sep 07, 2023 09:48 AM Reporting Lab: [facility] [address] [facility] [address] Performing Lab: [facility] [address] [facility] [address] [facility] CBC AND DIFF (AUTO) HEMOGLOBIN [MASS/VOLUM E] IN BLOOD 12.5 g/dL 12.8 - 17 10/16 L Specimen Type: BLOOD No comment entered. Ordering Provider: TOM MATTHEWS IE Report Released Date/Time: Sep 07, 2023 09:48 AM Reporting Lab: [facility] [address] [facility] [address] Performing Lab: [facility] [address] [facility] [address] [facility] CBC AND DIFF (AUTO) HEMATOCRIT [VOLUME FRACTION] OF BLOOD BY AUTOMATED COUNT 38.3 39.2 - 50.4 10/16 L Specimen Type: BLOOD No comment entered. Ordering Provider: TOM MATTHEWS Report Released Date/Time: Sep 07, 2023 09:48 AM Reporting Lab: [facility] [address] [facility] [address] Performing Lab: [facility] [address] [facility] [address] [facility] CBC AND DIFF (AUTO) MCV [ENTITIC VOLUME] BY AUTOMATED COUNT 91.4 fL 82 - 99 10/16 Specimen Type: BLOOD No comment entered. Ordering Provider: TOM MATTHEWS IE Report Released Date/Time: Sep 07, 2023 09:48 AM Reporting Lab: [facility] [address] [facility] [address] Performing Lab: [facility] [address] [facility] [address] [facility] CBC AND DIFF (AUTO) MCHC [MASS/VOLUM E] BY AUTOMATED COUNT 32.6 g/dL 30.8 - 35.1 10/16 Specimen Type: BLOOD No comment entered. Ordering Provider: CASSIE,ANNMAR IE Report Released Date/Time: Sep 07, 2023 09:48 AM Reporting Lab: [facility] [address] [facility] [address] Performing Lab: [facility] [address] [facility] [address] [facility] CBC AND DIFF (AUTO) PLATELETS [#/VOLUME] IN BLOOD BY AUTOMATED COUNT 167 10*3/u L 140 - 360 10/16 Specimen Type: BLOOD No comment entered. Ordering Provider: TOM MATTHEWS IE Report Released Date/Time: Sep 07, 2023 09:48 AM Reporting Lab: [facility] [address] [facility] [address] Performing Lab: [facility] [address] [place] [address] [facility] CBC AND DIFF (AUTO) ERYTHROCYTE DISTRIBUTIO N WIDTH [RATIO] BY AUTOMATED COUNT 16.7 12.0 - 16.0 10/16 H Specimen Type: BLOOD No comment entered. Ordering Provider: TOM MATTHEWS IE Report Released Date/Time: Sep 07, 2023 09:48 AM Reporting Lab: [facility] [address] [facility] [address] Performing Lab: [facility] [address] [place] [address] [facility] CBC AND DIFF (AUTO) MONOCYTES [#/VOLUME] IN BLOOD BY AUTOMATED COUNT 0.61 10*3/u L 0.30 - 1.10 10/16 Specimen Type: BLOOD No comment entered. Ordering Provider: TOM MATTHEWS IE Report Released Date/Time: Sep 07, 2023 09:48 AM Reporting Lab: [facility] [address] [facility] [address] Performing Lab: [facility] [address] [place] [address] [facility] CBC AND DIFF (AUTO) MCH [ENTITIC MASS] BY AUTOMATED COUNT 29.8 pg 26.2 - 32.6 10/16 Specimen Type: BLOOD No comment entered. Ordering Provider: TOM MATTHEWS IE Report Released Date/Time: Sep 07, 2023 09:48 AM Reporting Lab: [facility] [address] [facility] [address] Performing Lab: [facility] [address] [facility] [address] [facility] CBC AND DIFF (AUTO) NEUTROPHILS /100 LEUKOCYTES IN BLOOD BY AUTOMATED COUNT 57.3 43.7 - 75.8 10/16 Specimen Type: BLOOD No comment entered. Ordering Provider: TOM MATTHEWS IE Report Released Date/Time: Sep 07, 2023 09:48 AM Reporting Lab: [facility] [address] [address] Performing Lab: [facility] [address] [phone] [facility] CBC AND DIFF (AUTO) LYMPHOCYTES /100 LEUKOCYTES IN BLOOD BY AUTOMATED COUNT 20.3 14.0 - 42.3 10/16 Specimen Type: BLOOD No comment entered. Ordering Provider: TOM MATTHEWS IE Report Released Date/Time: Sep 07, 2023 09:48 AM Reporting Lab: [facility] [address] [address] Performing Lab: [facility] [address] [facility] [address] [facility] CBC AND DIFF (AUTO) MONOCYTES/1 00 LEUKOCYTES IN BLOOD BY AUTOMATED COUNT 14.4 5.1 - 13.7 10/16 H Specimen Type: BLOOD No comment entered. Ordering Provider: TOM MATTHEWS IE Report Released Date/Time: Sep 07, 2023 09:48 AM Reporting Lab: [facility] [address] [facility] [phone] Performing Lab: [facility] [address] [place] [phone] [facility] CBC AND DIFF (AUTO) EOSINOPHILS /100 LEUKOCYTES IN BLOOD BY AUTOMATED COUNT 7.1 0.4 - 6.8 10/16 H Specimen Type: BLOOD No comment entered. Ordering Provider: TOM MATTHEWS IE Report Released Date/Time: Sep 07, 2023 09:48 AM Reporting Lab: [facility] [place] [address] [address] Performing Lab: [facility] [place] [facility] [address] [facility] [address] [facility] [facility] CBC AND DIFF (AUTO) BASOPHILS/1 00 LEUKOCYTES IN BLOOD BY AUTOMATED COUNT 0.7 0.1 - 2.0 10/16 Specimen Type: BLOOD No comment entered. Ordering Provider: TOM MATTHEWS IE Report Released Date/Time: Sep 07, 2023 09:48 AM Reporting Lab: [facility] [place] [address] [address] Performing Lab: [facility] [place] [address] [address] [facility] CBC AND DIFF (AUTO) NEUTROPHILS [#/VOLUME] IN BLOOD BY AUTOMATED COUNT 2.42 10*3/u L 2.20 - 7.60 10/16 Specimen Type: BLOOD No comment entered. Ordering Provider: TOM MATTHEWS IE Report Released Date/Time: Sep 07, 2023 09:48 AM Reporting Lab: [facility] [place] [address] [address] Performing Lab: [facility] [place] [address] [address] [facility] [place] [facility] CBC AND DIFF (AUTO) LYMPHOCYTES [#/VOLUME] IN BLOOD BY AUTOMATED COUNT 0.86 10*3/u L 1.00 - 3.20 10/16 L Specimen Type: BLOOD No comment entered. Ordering Provider: TOM MATTHEWS IE Report Released Date/Time: Sep 07, 2023 09:48 AM Reporting Lab: [facility] [place] [address] [address] Performing Lab: [facility] [place] [facility] [address] [facility] [address] [facility] [place] [facility] CBC AND DIFF (AUTO) EOSINOPHILS [#/VOLUME] IN BLOOD BY AUTOMATED COUNT 0.30 10*3/u L 0.03 - 0.44 10/16 Specimen Type: BLOOD No comment entered. Ordering Provider: TOM MATTHEWS IE Report Released Date/Time: Sep 07, 2023 09:48 AM Reporting Lab: [facility] [place] [facility] [address] [facility] [address] Performing Lab: [facility] [address] [facility] [address] [facility] [facility] CBC AND DIFF (AUTO) BASOPHILS [#/VOLUME] IN BLOOD BY AUTOMATED COUNT 0.03 10*3/u L 0.01 - 0.13 10/16 Specimen Type: BLOOD No comment entered. Ordering Provider: TOM MATTHEWS IE Report Released Date/Time: Sep 07, 2023 09:48 AM Reporting Lab: [facility] [place] [facility] [address] [facility] [address] Performing Lab: [facility] [address] [facility] [address] [facility] CBC AND DIFF (AUTO) IMMATURE GRANULOCYTE S/100 LEUKOCYTES IN BLOOD BY AUTOMATED COUNT 0.2 0.0 - 0.7 10/16 Specimen Type: BLOOD No comment entered. Ordering Provider: TOM MATTHEWS IE Report Released Date/Time: Sep 07, 2023 09:48 AM Reporting Lab: [facility] [place] [facility] [address] [facility] [address] Performing Lab: [facility] [place] [facility] [address] [facility] [address] [facility] CBC AND DIFF (AUTO) IMMATURE GRANULOCYTE S [#/VOLUME] IN BLOOD 0.01 10*3/u L 0.00 - 0.06 10/16 Specimen Type: BLOOD No comment entered. Ordering Provider: TOM MATTHEWS IE Report Released Date/Time: Sep 07, 2023 09:48 AM Reporting Lab: [facility] [address] [address] Performing Lab: [facility] [address] [address] [facility] HEMOGLOBI N A1C PANEL HEMOGLOBIN A1C/HEMOGLO BIN.TOTAL IN BLOOD BY HPLC 6.1 4.0 - 5.6 10/16 H Specimen Type: BLOOD Comment: Values obtained from A1C measurement s can vary. For atypical A1C assays, a reported value of 7.0 could actually be between 6.72 and 7.28 if measured by a reference method. A reported value of 9.0 could actually be between 8.73 and 9.27. Ref: http://www. ngsp.org/[place] Pdata.asp Ordering Provider: TOM MATTHEWS IE Report Released Date/Time: Sep 07, 2023 09:48 AM Reporting Lab: [facility] [address] Performing Lab: [facility] [address] [address] [facility] LIPID PANEL FASTING CHOLESTEROL [MASS/VOLUM E] IN SERUM OR PLASMA 161 mg/dL 10/16 Specimen Type: SERUM No comment entered. Ordering Provider: TOM MATTHEWS IE Report Released Date/Time: Sep 07, 2023 09:48 AM Reporting Lab: [facility] [address] Performing Lab: [facility] [address] [facility] LIPID PANEL FASTING TRIGLYCERID E [MASS/VOLUM E] IN SERUM OR PLASMA 205 mg/dL 0 - 150 10/16 H Specimen Type: SERUM No comment entered. Ordering Provider: TOM MATTHEWS IE Report Released Date/Time: Sep 07, 2023 09:48 AM Reporting Lab: [address] [address] Performing Lab: [facility] [place] [facility] [address] [facility] [address] [facility] LIPID PANEL FASTING CHOLESTEROL IN LDL [MASS/VOLUM E] IN SERUM OR PLASMA BY CALCULATION 84 mg/dL 0 - 129 10/16 Specimen Type: SERUM No comment entered. Ordering Provider: TOM MATTHEWS IE Report Released Date/Time: Sep 07, 2023 09:48 AM Reporting Lab: [facility] [place] [facility] [address] [facility] [address] Performing Lab: [facility] [place] [facility] [address] [facility] [address] [facility] LIPID PANEL FASTING CHOLESTEROL .TOTAL/CHOL ESTEROL IN HDL [MASS RATIO] IN SERUM OR PLASMA 4.5 10/16 Specimen Type: SERUM No comment entered. Ordering Provider: TOM MATTHEWS IE Report Released Date/Time: Sep 07, 2023 09:48 AM Reporting Lab: [facility] [place] [facility] [address] [facility] [address] Performing Lab: [facility] [place] [facility] [address] [facility] [address] [facility] LIPID PANEL FASTING CHOLESTEROL IN HDL [MASS/VOLUM E] IN SERUM OR PLASMA 36 mg/dL 40 - 60 10/16 L Specimen Type: SERUM No comment entered. Ordering Provider: TOM MATTHEWS IE Report Released Date/Time: Sep 07, 2023 09:48 AM Reporting Lab: [facility] [place] [facility] [address] [facility] [address] Performing Lab: [facility] [place] [facility] [address] [facility] [address] [facility] LIVER FUNCTION PROTEIN [MASS/VOLUM E] IN SERUM OR PLASMA 6.4 g/dL 6.0 - 8.3 10/16 Specimen Type: SERUM No comment entered. Ordering Provider: TOM MATTHEWS IE Report Released Date/Time: Sep 07, 2023 09:48 AM Reporting Lab: [facility] [place] [facility] [address] [facility] [address] Performing Lab: [facility] [place] [facility] [address] [facility] [address] [facility] [place] [facility] LIVER FUNCTION ALBUMIN [MASS/VOLUM E] IN SERUM OR PLASMA 3.5 g/dL 3.5 - 5.0 10/16 Specimen Type: SERUM No comment entered. Ordering Provider: TOM MATTHEWS IE Report Released Date/Time: Sep 07, 2023 09:48 AM Reporting Lab: [facility] [place] [facility] [address] [facility] [address] Performing Lab: [facility] [place] [facility] [address] [facility] [address] [facility] [place] [facility] LIVER FUNCTION ALKALINE PHOSPHATASE [ENZYMATIC ACTIVITY/VO LUME] IN SERUM OR PLASMA 69 U/L 40 - 150 10/16 Specimen Type: SERUM No comment entered. Ordering Provider: TOM MATTHEWS IE Report Released Date/Time: Sep 07, 2023 09:48 AM Reporting Lab: [facility] [place] [facility] [address] [facility] [address] Performing Lab: [facility] [place] [facility] [address] [facility] [address] [facility] [place] [facility] LIVER FUNCTION ASPARTATE AMINOTRANSF ERASE [ENZYMATIC ACTIVITY/VO LUME] IN SERUM OR PLASMA 14 U/L 5 - 34 10/16 Specimen Type: SERUM No comment entered. Ordering Provider: TOM MATTHEWS IE Report Released Date/Time: Sep 07, 2023 09:48 AM Reporting Lab: [facility] [place] [facility] [address] [facility] [address] Performing Lab: [facility] [place] [facility] [address] [facility] [address] [facility] [place] [facility] LIVER FUNCTION ALANINE AMINOTRANSF ERASE [ENZYMATIC ACTIVITY/VO LUME] IN SERUM OR PLASMA 17 U/L 10/16 Specimen Type: SERUM No comment entered. Ordering Provider: TOM MATTHEWS IE Report Released Date/Time: Sep 07, 2023 09:48 AM Reporting Lab: [facility] [place] [facility] [address] [facility] [address] Performing Lab: [facility] [place] [facility] [address] [facility] [address] [facility] [place] [facility] LIVER FUNCTION BILIRUBIN.T OTAL [MASS/VOLUM E] IN SERUM OR PLASMA 0.4 mg/dL 0.2 - 1.2 10/16 Specimen Type: SERUM No comment entered. Ordering Provider: TOM MATTHEWS IE Report Released Date/Time: Sep 07, 2023 09:48 AM Reporting Lab: [facility] [place] [facility] [address] [facility] [address] Performing Lab: [facility] [place] [address] [address] [facility] PSA PROSTATE SPECIFIC AG [MASS/VOLUM E] IN SERUM OR PLASMA 0.29 ng/mL 0.00 - 4.00 10/16 Specimen Type: SERUM No comment entered. Ordering Provider: TOM MATTHEWS IE Report Released Date/Time: Sep 07, 2023 09:48 AM Reporting Lab: [facility] [place] [address] [address] Performing Lab: [facility] [place] [facility] [address] [facility] [address] [facility] TSH THYROTROPIN [UNITS/VOLU ME] IN SERUM OR PLASMA 1.81 u[IU]/ mL 0.35 - 5.00 10/16 Specimen Type: SERUM No comment entered. Ordering Provider: TOM MATTHEWS IE Report Released Date/Time: Sep 07, 2023 09:48 AM Reporting Lab: [facility] [place] [facility] [address] [facility] [address] Performing Lab: [facility] [place] [address] [address] [facility] [place] [facility] CREATININ E (eGFR 2020) CREATININE [MASS/VOLUM E] IN SERUM OR PLASMA 1.41 mg/dL 0.50 - 1.40 09/07 H Specimen Type: SERUM No comment entered. Ordering Provider: TOM MATTHEWS IE Report Released Date/Time: Sep 07, 2023 09:45 AM Reporting Lab: [facility] [address] [address] Performing Lab: [address] [address] [place] CREATININ E (eGFR 2020) GLOMERULAR FILTRATION RATE/1.73 SQ M.PREDICTED [VOLUME RATE/AREA] IN SERUM, PLASMA OR BLOOD BY CREATININE- BASED FORMULA (CKD-EPI 2020) 52 mL/min 60 09/07 L Specimen Type: SERUM No comment entered. Ordering Provider: TOM MATTHEWS IE Report Released Date/Time: Sep 07, 2023 09:45 AM Reporting Lab: [address] [address] Performing Lab: [address] [address] [place] UREA NITROGEN UREA NITROGEN [MASS/VOLUM E] IN SERUM OR PLASMA 19 mg/dL 7 - 25 09/07 Specimen Type: SERUM No comment entered. Ordering Provider: TOM MATTHEWS IE Report Released Date/Time: Sep 07, 2023 09:45 AM Reporting Lab: [address] [address] Performing Lab: [address] [address] [facility] Vital Signs Combined list of inpatient and outpatient Vital Signs from Department of Defense and Veterans Affairs, ranging from 12 months to all on record, depending upon the facility. Vital Sign Value Date Comments Source SYSTOLIC BLOOD PRESSURE 137 06/20/2024 13:46:58 MOBILE DIASTOLIC BLOOD PRESSURE 86 06/20/2024 13:46:58 MOBILE PULSE OXIMETRY 96 06/20/2024 13:46:58 S RUFINA WEIGHT 222 06/20/2024 13:46:58 MARIANNA HUANG BMI 32kg/m2 06/20/2024 13:46:58 MARIANNA HUANG PULSE 65 06/20/2024 13:46:58 MARIANNA HUANG SYSTOLIC BLOOD PRESSURE 142 03/09/2024 09:09:11 MOBILE DIASTOLIC BLOOD PRESSURE 84 03/09/2024 09:09:11 MOBILE PULSE OXIMETRY 95 03/09/2024 09:09:11 S RU[place] PAIN 0 03/09/2024 09:09:11 MARIANNA HUANG TEMPERATURE 97.8 03/09/2024 09:09:11 [facility] [place] PULSE 82 03/09/2024 09:09:11 [facility] RESPIRATION 17 03/09/2024 09:09:11 [facility] [place] Encounters Combined list of: 1) Encounters from Department of Veterans Affairs facilities going back up to thelast 18 months. 2) Encounters from the Department of Defense facilities going back up to 280 months. Location Location Details Encounter Type Encounter Number Reason For Visit Attending Provider ADM Date DC Date Status Disposition Source [facility] [id number] 03/24 [facility] [id number] 03/31 [facility] [id number] 03/31 [facility]counter [id number] 04/01 [facility] [id number] 04/05 [facility]counter [id number] 04/12 [facility] [place] ADMIN [id number] ELIDIA MATTHEWS 04/29 [facility] LD OFFICE O/P EST MOD 30-39 MIN [id number] Diagnos is: ICD-10- CM R06.00 Dyspnea , unspeci fied
ELIDIA MATTHEWS 04/29 [facility] En[facility] [id number] 05/12 [facility] En[facility] [id number] FARHADKENDRA YINA Marco 05/13 [facility] OT EVAL LOW COMPLEX 30 MIN [id number] Diagnos is: ICD-10- CM R27.0 Ataxia, unspeci fied
ANGEL KAY 05/17 [facility] [id number] 05/20 [facility] En[facility] [id number] 06/18 [facility] Encounter [id number] Chandan ALDANA 06/18 [facility] En[facility] [id number] 06/20 [facility] En[facility] [id number] 06/20 [facility] En[facility] [id number] 06/21 [facility] En[facility] [id number] 06/22 [facility] En[facility] [id number] HUGO ARAUJO 06/22 [facility] En[facility] [id number] 06/23 [facility] [id number] 06/25 [facility] Encounter [id number] 07/01 [facility] En[facility] [id number] 07/13 [facility] Encounter [id number] 07/19 [facility] Encounter [id number] 07/21 [facility] Encounter [id number] 07/23 [facility] Encounter [id number] 07/25 [facility]counter [id number] 07/26 [facility] Encounter [id number] 07/29 [facility] Encounter [id number] 08/03 [facility] EYE EXAM&TX ESTAB PT 1/>VST [id number] Diagnos is: ICD-10- CM H40.013 Open angle with borderl ine finding s, low risk, bilater al
MERHAR,ESME H B 08/03 [facility] FIT SPECTACLES BIFOCAL [id number] Diagnos is: ICD-10- CM Z46.0 Encount er for fit/adj st of spectac les and contact lenses< br/> MERHAR,ESME H B 08/03 [facility] Out[facility] En[facility] [id number] 08/24 [facility] QNHP OL DIG ASSMT&MGMT 5-10 [id number] Diagnos is: ICD-10- CM Z04.89 Encount er for examina tion and observa tion for oth reasons
KOURTNEY WILLIAM 08/25 [facility] En[facility] [id number] 08/25 [facility] Encounter [id number] 09/14 [facility] Encounter [id number] 10/10 [facility] Out[facility] Encounter [id number] [facility] EXTENSV ORAL EVAL PROB FOCUS [id number] Diagnos is: ICD-10- CM K03.81 Cracked tooth<b r/> HALLEY MOYA 10/13 [facility] En[facility] [id number] 10/16 [facility] Out[facility] Encounter [id number] 10/20 [facility] En[facility] [id number] 12/12 [facility] Encounter [id number] 12/19 [facility] Encounter [id number] 01/12 [facility] En[facility] [id number] 01/12 [facility] Encounter [id number] 01/22 [facility] En[facility] [id number] 01/26 [facility] Encounter [id number] 01/26 [facility] Encounter [id number] 02/08 [facility] En[facility] [id number] 02/19 [facility] En[facility] [id number] 02/19 [facility] Out[facility] Encounter [id number] 03/02 [facility] Encounter [id number] 03/02 [facility]counter [id number] 03/07 [facility] Encounter [id number] 03/09 [facility] [place]/OP EST MAY X REQ PHY/QHP [id number] Diagnos is: ICD-10- CM K92.1 Melena< br/> LANDON SANCHEZ K 03/09 [place] O/P EST MOD 30 MIN [id number] Diagnos is: ICD-10- CM K92.1 Melena< br/> EVELIN GRAF 03/09 [facility] [place] [facility] En[facility] [id number] 03/14 [facility] [id number] 03/28 [facility] [id number] 03/29 [facility] [id number] 04/12 [facility] [id number] 04/12 [facility] [id number] 04/17 [facility] [id number] 04/20 [facility] [id number] 04/23 [facility] [id number] 04/23 [facility] [id number] 05/07 [facility] [id number] 05/15 [facility] [id number] 06/08 [facility] OFF[facility] O/P EST MOD 30 MIN [id number] HOMAR,EVELIN Fuentes 06/20 [place] [facility] Encounter [id number] 06/22 [facility] [id number] 06/24 [facility] [id number] [facility] [id number] [facility] [id number] [facility] [id number] 07/16 [facility] En[facility] [id number] 07/17 [facility] QNHP OL DIG ASSMT&MGMT 5-10 [id number] 1BY. 59 Diagnos is: ICD-10- CM Z04.89 Encount er for examina tion and observa tion for oth reasons
EARLE CERVANTES IE 07/18 [place] [facility] En[facility] [id number] IMTIAZ TAYLOR I 07/21 [place] [facility] Outpatient [facility]counter [id number] 08/02 [facility] OFF[facility] O/P EST MOD 30 MIN [id number] Diagnos is: ICD-10- CM L60.3 Nail dystrop hy
ZAMZAM MACK ES F 08/16 [facility] [place] [facility] Outpatient Encounter [id number] [place] [facility] [place] [facility] Outpatient Encounter [id number] [place] [facility] Social History Combined list of available smoking, tobacco, and other social history from Department of Defense and Veterans Affairs facilities. Social History Type Response Date Comment Source Tobacco smoking status [facility] VA-TOBACCO USER EVERY DAY 09/14/2023 [place] [facility] History of tobacco use VA-TOBACCO USE 30 YEARS OR MORE 09/14/2023 [place] [facility] History of tobacco use VA-TOBACCO USER EVERY DAY 08/02/2022 [facility] [place] [facility] History of tobacco use VA-TOBACCO USER EVERY DAY 07/28/2021 [facility] [place] [facility] History of tobacco use VA-TOBACCO USE WI 30 MIN OF WAKEUP 06/04/2020 [facility] [place] [facility] History of tobacco use VA-TOBACCO USE MED NO 02/01/2019 [facility] History of tobacco use VA-TOBACCO DOESNT USE WI 30 MIN WAKEUP 11/14/2017 [facility] History of tobacco use CURRENT SMOKER 05/16/2017 ~3 cigarettes per day [facility] History of tobacco use CURRENT SMOKER 11/01/2016 [facility] History of tobacco use V1-PT DECLINES TOBACCO CESSATION MEDS 05/03/2016 [facility] History of tobacco use CURRENT SMOKER 03/30/2016 smokes about 1 pack every 3 days for about 45 years [place] [facility] [facility] History of tobacco use V1-PT DECLINES TOBACCO CESSATION MEDS 02/19/2014 [facility] History of tobacco use CURRENT SMOKER 06/04/2013 smokes a pack of cigaretts a week. [facility] History of tobacco use V1-PT DECLINES TOBACCO CESSATION MEDS 08/28/2012 [facility] History of tobacco use CURRENT SMOKER 01/03/2012 [facility] History of tobacco use V1-PT DECLINES TOBACCO CESSATION MEDS 07/22/2011 [facility] History of tobacco use CURRENT SMOKER 01/25/2011 [facility] History of tobacco use CURRENT SMOKER 09/03/2009 advise stop [facility] History of tobacco use V1-PT DECLINES TOBACCO CESSATION MEDS 06/28/2008 [facility] History of tobacco use CURRENT SMOKER 06/28/2008 5-6 cigarettes/day [facility] History of tobacco use CURRENT SMOKER 03/18/2005 [facility] History of tobacco use CURRENT SMOKER 12/28/2001 Patient states he has smoked from age 16-present, 1/2 pk cigarettes daily. [facility] Plan of Care List of future care activities from Department of [facility] Affairs facilities. Additional future care activities may be listed in the Assessment and Plan section. Date/Time Care Activity Care Activity Detail Facili ty 09/17/2024 AMBULATORY - MEDICINE AMBULATORY - MEDICI [facility] 12/12/2024 AMBULATORY - MEDICINE AMBULATORY - MEDICI [facility]
--- OUTSIDE RECORDS SUMMARY | 2024-08-30 19:41 | XMS_ITS ---
Author Name [facility] [place] [facility] [place] Address [address] [place] [address] Care Team Providers Care Rn Telehealth Name Role Phone HOMAR JD Primary Care Provider Unavailabl e Insurance Providers: All historical and current Section Date Range: From patient's date of to the date document was created. This section includes the names of all active insurance providers for the patient. Insurance Provider Type of Coverage Plan Name Start of Policy Coverage End of Policy Coverage Group Number Member ID Insurance Provider's Telephone Number Policy Hendricks's Name Patient's Relationship to Policy Hendricks MEDICARE (WNR) MEDICARE ([place]) PART A May 15, 2015 PART A [id number] KINJAL LAW SR PATIENT Selected Encounter This section includes the information on record at [place] for the Encounter. Date/Time Encounter Type Encounter Description Reason Pro vider Source May 07, 2024 12:00 PM Outpatient Encounter COMMUNITY CARE CONSULT IHE Encounter Template Text not used by VA Plan of Treatment: Future Appointments (+ 6 months) and Future Tests (+/- 45 days) The Plan of Treatment section includes future care activities for the patient from all VA treatmentfacilities. This section includes future appointments and future orders which are active, pending or scheduled. Future Appointments This section includes appointments that were scheduled to occur 6 months from the date of the Encounter, up to a maximum of 20 appointments. The data comes from all [facility]. Appointment Date/Time Appointment Type Appointme nt Facility Name Jun 11, 2024 01:00 PM AMBULATORY - NONE [facility] [place] [facility] Jun 20, 2024 02:00 PM AMBULATORY - MEDICINE [facility] Aug 16, 2024 09:00 AM [facility] Sep 17, 2024 10:00 AM AMBULATORY - MEDICINE [facility] Active, Pending, and Scheduled Orders This section includes a listing of several types of active, pending, and scheduled orders, including clinic medications orders, diagnostic test orders, procedure orders and consult orders; where the start date of the order is 45 days before the date of the Encounter or 45 days after the date of theEncounter. The data comes from all [facility]. Test Date/Time Test Type Test Details Facility Name Jun 13, 2024 12:00 AM Laboratory - Chemi stry Order LIPID PANEL FASTING BLOOD (SST-SERUM) [facility] Jun 13, 2024 12:00 AM Laboratory - Chemi stry Order LIVER FUNCTION BLOOD (SST-SERUM) [facility] Jun 13, 2024 12:00 AM Laboratory - Chemi stry Order BASIC METABOLIC PANEL (fasting) BLOOD (SST-SERUM) [facility] Jun 13, 2024 12:00 AM Laboratory - Chemi stry Order CBC AND DIFF (AUTO) BLOOD (LAV-BLOOD) [facility] Jun 13, 2024 12:00 AM Laboratory - Chemi stry Order HEMOGLOBIN A1C PANEL BLOOD (LAV-BLOOD) [facility] Jun 13, 2024 12:00 AM Laboratory - Chemi stry Order TSH BLOOD (SST-SERUM) [facility] Jun 20, 2024 12:00 AM Laboratory - Chemi stry Order MICROALBUMIN CREATININE RATIO PANEL URINE (RANDOM) [facility] Jun 20, 2024 12:00 AM Laboratory - Chemi stry Order VITAMIN D (25-OH) BLOOD (SST-SERUM) [facility] Jun 20, 2024 12:00 AM Laboratory - Chemi stry Order ALPHA-FETOPROTEIN BLOOD (SST-SERUM) [facility] Social History: Smoking Status (Most current) and Tobacco Use (All prior to encounter date) This section includes the most current, and the historical, smoking and tobacco- related health factors from the [place] facility where the Encounter took place. Current Smoking Status This section includes the most current smoking, or tobacco-related health factor, from the [place] facility where the Encounter took place. Date/Time Current Smoking Status Comment [facility] Sep 14, 2023 10:00 AM VA-TOBACCO USER EVERY DAY [place] [facility] Tobacco Use History This section includes a history of the smoking, or tobacco-related health factors, that were collected on or before the date of the Encounter. The data comes from the [place] facility where the Encounter took place. 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 [facility] [place] [facility] Sep 14, 2023 10:00 AM VA-TOBACCO USE MED NO [facility] [place] [facility] Sep 14, 2023 10:00 AM VA-TOBACCO USER EVERY DAY [facility] [place] [facility] Aug 02, 2022 01:11 PM VA-TOBACCO USE 30 YEARS OR MORE [facility] [place] [facility] Aug 02, 2022 01:11 PM VA-TOBACCO USE ADVICE [facility] [place] [facility] Aug 02, 2022 01:11 PM 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 [facility] [place] [facility] Aug 02, 2022 01:11 PM VA-TOBACCO USE MED NO [facility] [place] [facility] Aug 02, 2022 01:11 PM VA-TOBACCO USE [place] 30 MIN OF WAKEUP [facility] [place] [facility] Aug 02, 2022 01:11 PM VA-TOBACCO USER EVERY DAY [facility] [place] [facility] Jul 28, 2021 11:21 AM VA-TOBACCO USE 30 YEARS OR MORE [facility] [place] [facility] Jul 28, 2021 11:21 AM VA-TOBACCO USE ADVICE [facility] [place] [facility] Jul 28, 2021 11:21 AM 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 [facility] [place] [facility] Jul 28, 2021 11:21 AM VA-TOBACCO USE MED NO [facility] [place] [facility] Jul 28, 2021 11:21 AM VA-TOBACCO USE [place] 30 MIN OF WAKEUP [facility] [place] [facility] Jul 28, 2021 11:21 AM VA-TOBACCO USER EVERY DAY [facility] [place] [facility] Jun 04, 2020 01:59 PM VA-TOBACCO USE 30 YEARS OR MORE [facility] [place] [facility] Jun 04, 2020 01:59 PM VA-TOBACCO USE ADVICE [facility] [place] [facility] Jun 04, 2020 01:59 PM 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 [facility] [place] [facility] Jun 04, 2020 01:59 PM VA-TOBACCO USE MED NO [facility] [place] [facility] Jun 04, 2020 01:59 PM VA-TOBACCO USE WI 30 MIN OF WAKEUP [facility] [place] [facility] Jun 04, 2020 01:59 PM VA-TOBACCO USER EVERY DAY [facility] [place] [facility] Mar 30, 2016 10:35 AM CURRENT SMOKER smokes about 1 pack every 3 days for about 45 years [place] [facility] Encounter Notes: All associated encounter notes This section contains the clinical notes associated to the Encounter. Date/Time Encounter Note(s) Provider Source May 07, 2024 12:00 PM NONVA CONSULT: LOCAL TITLE: COMMUNITY CARE-CONSULT RESULT NOTE STANDARD TITLE: NONVA CONSULT DATE OF NOTE: MAY 07, 2024@12:00 ENTRY DATE: AUG 14, 2024@11:21:13 AUTHOR: GENI TAPIA EXP COSIGNER: URGENCY: STATUS: COMPLETED VistA Imaging - Scanned Document SCANNED DOCUMENT SIGNATURE NOT REQUIRED Electronically Filed: 08/14/2024 by: GENI TAPIA ROLLER INSPECTOR AND MENDER GENI ATPIA [place] [facility] [facility]
--- OUTSIDE RECORDS SUMMARY | 2024-08-30 19:42 | XMS_ITS | Encounter Summary ---
Author Name [facility] [place] Address [address] [place] [address] Care Team Providers Care Quarantine Inspector Name Role Phone JD GRAF Primary Care Provider Unavailabl e Insurance Providers: [...] PART A May 15, 2015 PART A [id number] 00A KINJAL LAW SR PATIENT Selected Encounter This section includes the information on record at [place] for the Encounter. Date/Time Encounter Type Encounter Description Reason Pro vider Source Apr 23, 2024 07:51 AM Outpatient Encounter ADMIN PAT ACTIVTIES (MASNONCT) IHE Encounter Template Text not used by [place] Plan of Treatment: Future Appointments (+ 6 [...] 20 appointments. The data comes from all [place] treatment facilities. Appointment Date/Time Appointment Type Appointme nt Facility Name Apr 25, 2024 11:15 AM AMBULATORY - MEDICINE [facility] [place] [facility] Jun 11, 2024 01:00 PM AMBULATORY - NONE [facility] [place] [facility] Jun 20, 2024 02:00 PM AMBULATORY - MEDICINE [facility] Aug 16, 2024 09:00 AM AMBULATORY - MEDICINE [facility] Sep 17, 2024 10:00 AM [facility] Social History: Smoking Status (Most current) and Tobacco Use (All prior to encounter date) This section includes the most current, and the historical, smoking and tobacco- related health factors from the [place] facility where the Encounter took place. Current Smoking Status This section includes the most current smoking, or tobacco-related health factor, from the [place] facility where the Encounter took place. Date/Time Current Smoking Status Comment [facility] Sep 14, 2023 10:00 AM VA-TOBACCO USER EVERY DAY [place] [facility] Tobacco Use History This section includes a history of the smoking, or tobacco-related health factors, that were collected on or before the date of the Encounter. The data comes from the [place] facility where the Encounter took place. Date/Time Smoking Status/Tobac co Use Comment Facility Sep 14, 2023 10:00 AM VA-TOBACCO USE 30 YEARS OR MORE [facility] [place] [facility] Sep 14, 2023 10:00 AM VA-TOBACCO USE ADVICE [facility] [place] [facility] Sep 14, 2023 10:00 AM VA-TOBACCO USE DIRECTOR OF GOLF NO [facility] [place] [facility] Sep 14, 2023 10:00 AM VA-TOBACCO USE MED NO [facility] [place] [facility] Sep 14, 2023 10:00 AM VA-TOBACCO USER EVERY DAY [facility] [place] [facility] Aug 02, 2022 01:11 PM VA-TOBACCO USE 30 YEARS OR MORE [facility] [place] [facility] Aug 02, 2022 01:11 PM VA-TOBACCO USE ADVICE [facility] [place] [facility] Aug 02, 2022 01:11 PM VA-TOBACCO USE DIRECTOR OF GOLF NO [facility] [place] [facility] Aug 02, 2022 01:11 PM VA-TOBACCO USE MED NO [facility] [place] [facility] Aug 02, 2022 01:11 PM VA-TOBACCO USE [place] 30 MIN OF WAKEUP [facility] [place] [facility] Aug 02, 2022 01:11 PM VA-TOBACCO USER EVERY DAY [facility] [facility] Jul 28, 2021 11:21 AM VA-TOBACCO USE 30 YEARS OR MORE [facility] [place] [facility] Jul 28, 2021 11:21 AM VA-TOBACCO USE ADVICE [facility] [place] [facility] Jul 28, 2021 11:21 AM VA-TOBACCO USE DIRECTOR OF GOLF NO [facility] [place] [facility] Jul 28, 2021 11:21 AM VA-TOBACCO USE MED NO [facility] [place] [facility] Jul 28, 2021 11:21 AM VA-TOBACCO USE [place] 30 MIN OF WAKEUP [facility] [place] [facility] Jul 28, 2021 11:21 AM VA-TOBACCO USER EVERY DAY [facility] [place] [facility] Jun 04, 2020 01:59 PM VA-TOBACCO USE 30 YEARS OR MORE [facility] [place] [facility] Jun 04, 2020 01:59 PM VA-TOBACCO USE ADVICE [facility] [place] [facility] Jun 04, 2020 01:59 PM VA-TOBACCO USE DIRECTOR OF GOLF NO [facility] [place] [facility] Jun 04, 2020 01:59 PM VA-TOBACCO USE MED NO [facility] [place] [facility] Jun 04, 2020 01:59 PM VA-TOBACCO USE WI 30 MIN OF WAKEUP [facility] [place] [place] [facility] Jun 04, 2020 01:59 PM VA-TOBACCO USER EVERY DAY [facility] [place] [place] [facility] Mar 30, 2016 10:35 AM CURRENT SMOKER smokes about 1 pack every 3 days for about 45 years [facility] [place] [facility] Encounter Notes: All associated encounter notes This section contains the clinical notes associated to the Encounter. Date/Time Encounter Note(s) Provider Source Apr 23, 2024 10:56 AM ADDENDUM: LOCAL TITLE: Addendum STANDARD TITLE: ADDENDUM DATE OF NOTE: APR 23, 2024@10:56:32 ENTRY DATE: APR 23, 2024@10:56:32 AUTHOR: SAILAJA WOODY COSIGNER: URGENCY: STATUS: COMPLETED THIS EVALUATION ADVISOR HAD SPOKEN TO , IS REQUESTING PRESCRIPTION REFILL/RENEWAL FOR SILDENAFIL. /subhash/ LUI WOODY ADVANCED MANUFACTURING MAINTENANCE MANAGER Signed: 04/23/2024 10:57 Receipt Acknowledged By: 04/23/2024 12:57 /es/ SHANI KEENAN RN-BC REGISTERED NURSE 04/23/2024 11:59 /es/ BANDAR MORALES LPN Licensed Practical Nurse 05/02/2024 16:16 /es/ CHIDI LAMBERT MD PRIMARY CARE PHYSICIAN === --- Original Document --- 04/23/24 CCC: SCHEDULING ADMINISTRATION: Verify Patient Demographics Successfully verified patient demographics vet calling to rschedule pcp appt- pcp grid unavailable- refer to pact please call /es/ FABIO ROBERTO 2 [facility] Signed: 04/23/2024 07:51 Receipt Acknowledged By: 04/23/2024 10:54 /subhash/ LUI WOODY ADVANCED MANUFACTURING MAINTENANCE MANAGER 04/23/2024 ADDENDUM STATUS: COMPLETED THIS EVALUATION ADVISOR HAD SPOKEN TO TO RESCHEDULE CX CL F2F ANNUAL APPT WITH CWM/SO/PACT EIGHT PROVIDER. ALREADY HAS APPT SCHEDULED FOR 06/20/2024 AT 14:00 F2F ANNUAL FASTING LABS TRSFER PACT 4). /roxanna WOODY ADVANCED MANUFACTURING MAINTENANCE MANAGER Signed: 04/23/2024 10:55 [facility] [place] [facility] Apr 23, 2024 07:51 AM ADMINISTRATIVE NOTE: LOCAL TITLE: CCC: SCHEDULING ADMINISTRATION STANDARD TITLE: ADMINISTRATIVE NOTE DATE OF NOTE: APR 23, 2024@07:51 ENTRY DATE: APR 23, 2024@07:51:09 AUTHOR: FABIO TABOR COSIGNER: URGENCY: STATUS: COMPLETED CCC: SCHEDULING ADMINISTRATION Has ADDENDA Verify Patient Demographics Successfully verified patient demographics vet calling to rschedule pcp appt- pcp grid unavailable- refer to pact please call /subhash/ FABIO ROBRETO 2 [facility] Signed: 04/23/2024 07:51 Receipt Acknowledged By: 04/23/2024 10:54 /subhash/ LUI WOODY ADVANCED MANUFACTURING MAINTENANCE MANAGER 04/23/2024 ADDENDUM STATUS: COMPLETED THIS EVALUATION ADVISOR HAD SPOKEN TO TO RESCHEDULE CX CL F2F ANNUAL APPT WITH CWM/SO/PACT EIGHT PROVIDER. ALREADY HAS APPT SCHEDULED FOR 06/20/2024 AT 14:00 F2F ANNUAL FASTING LABS TRSFER PACT 4). /subhash/ LUI WOODY ADVANCED MANUFACTURING MAINTENANCE MANAGER Signed: 04/23/2024 10:55 04/23/2024 ADDENDUM STATUS: COMPLETED THIS EVALUATION ADVISOR HAD SPOKEN TO , IS REQUESTING PRESCRIPTION REFILL/RENEWAL FOR SILDENAFIL. /roxanna WOODY ADVANCED MANUFACTURING MAINTENANCE MANAGER Signed: 04/23/2024 10:57 Receipt Acknowledged By: * AWAITING SIGNATURE * POPEYE BENEDICT * AWAITING SIGNATURE * BANDAR MORALES * AWAITING SIGNATURE * [facility]
--- OUTSIDE RECORDS SUMMARY | 2024-08-30 19:42 | XMS_ITS | Encounter Summary ---
Author Name [facility] [place] [facility] [place] [facility] [place] Address [address] [place] [address] Care Team Providers Care Eyeglass Lens Grinder Name Role Phone JD GRAF Primary Care [...] PART A May 15, 2015 PART A [id number] 00A KINJAL LAW SR PATIENT Selected Encounter This section includes the information on record at [place] for the Encounter. Date/Time Encounter Type Encounter Description Reason Pro vider Source Apr 23, 2024 08:33 AM Outpatient Encounter ADMIN PAT ACTIVTIES (MASNONCT) IHE Encounter Template Text not used by [place] Plan of Treatment: Future Appointments (+ 6 [...] 20 appointments. The data comes from all [place] treatment facilities. Appointment Date/Time Appointment Type Appointme nt Facility Name Apr 25, 2024 11:15 AM AMBULATORY - MEDICINE [facility] [place] [facility] Jun 11, 2024 01:00 PM AMBULATORY - NONE [facility] [place] [facility] Jun 20, 2024 02:00 PM [facility]ICINE [facility] Aug 16, 2024 09:00 AM [facility]ORY - MEDICINE [facility] Sep 17, 2024 10:00 AM [facility] Social History: Smoking Status (Most current) and Tobacco Use (All prior to encounter date) This section includes the most current, and the historical, smoking and tobacco- related health factors from the [place] facility where the Encounter took place. Current Smoking Status This section includes the most current smoking, or tobacco-related health factor, from the [place] facility where the Encounter took place. Date/Time Current Smoking Status Comment [facility] Sep 14, 2023 10:00 AM VA-TOBACCO USER EVERY DAY [place] [facility] [place] [facility] Tobacco Use History This section includes a history of the smoking, or tobacco-related health factors, that were collected on or before the date of the Encounter. The data comes from the [place] facility where the Encounter took place. Date/Time Smoking Status/Tobac co Use Comment Facility Sep 14, 2023 10:00 AM VA-TOBACCO USE 30 YEARS OR MORE [facility] [place] [facility] Sep 14, 2023 10:00 AM VA-TOBACCO USE ADVICE [facility] [place] [facility] Sep 14, 2023 10:00 AM VA-TOBACCO USE TRANSMISSION BUILDER NO [facility] [place] [facility] Sep 14, 2023 10:00 AM VA-TOBACCO USE MED NO [facility] [place] [facility] Sep 14, 2023 10:00 AM VA-TOBACCO USER EVERY DAY [facility] [place] [facility] Aug 02, 2022 01:11 PM VA-TOBACCO USE 30 YEARS OR MORE [facility] [place] [facility] Aug 02, 2022 01:11 PM VA-TOBACCO USE ADVICE [facility] [place] [facility] Aug 02, 2022 01:11 PM VA-TOBACCO USE TRANSMISSION BUILDER NO [facility] [place] [facility] Aug 02, 2022 01:11 PM VA-TOBACCO USE MED NO [facility] [place] [facility] Aug 02, 2022 01:11 PM VA-TOBACCO USE WI 30 MIN OF WAKEUP [facility] [place] [facility] Aug 02, 2022 01:11 PM VA-TOBACCO USER EVERY DAY [facility] [place] [facility] Jul 28, 2021 11:21 AM VA-TOBACCO USE 30 YEARS OR MORE [facility] [place] [facility] Jul 28, 2021 11:21 AM VA-TOBACCO USE ADVICE [facility] [place] [facility] Jul 28, 2021 11:21 AM VA-TOBACCO USE TRANSMISSION BUILDER NO [facility] [place] [facility] Jul 28, 2021 11:21 AM VA-TOBACCO USE MED NO [facility] [place] [facility] Jul 28, 2021 11:21 AM VA-TOBACCO USE [place] 30 MIN OF WAKEUP [facility] [place] [facility] Jul 28, 2021 11:21 AM VA-TOBACCO USER EVERY DAY [facility] [place] [facility] Jun 04, 2020 01:59 PM VA-TOBACCO USE 30 YEARS OR MORE [facility] [place] [facility] Jun 04, 2020 01:59 PM VA-TOBACCO USE ADVICE [facility] [place] [facility] Jun 04, 2020 01:59 PM VA-TOBACCO USE TRANSMISSION BUILDER NO [facility] [place] [facility] Jun 04, 2020 01:59 PM VA-TOBACCO USE MED NO [facility] [place] [facility] Jun 04, 2020 01:59 PM VA-TOBACCO USE WI 30 MIN OF WAKEUP [facility] [place] [facility] Jun 04, 2020 01:59 PM VA-TOBACCO USER EVERY DAY [facility] [place] [facility] Mar 30, 2016 10:35 AM CURRENT SMOKER smokes about 1 pack every 3 days for about 45 years [facility] [place] [facility] Encounter Notes: All associated encounter notes This section contains the clinical notes associated to the Encounter. Date/Time Encounter Note(s) Provider Source Apr 23, 2024 08:33 AM ADMINISTRATIVE NOTE: LOCAL TITLE: CCC: SCHEDULING ADMINISTRATION STANDARD TITLE: ADMINISTRATIVE NOTE DATE OF NOTE: APR 23, 2024@08:33:08 ENTRY DATE: APR 23, 2024@08:33:08 AUTHOR: KAT MENDEZ COSIGNER: URGENCY: STATUS: COMPLETED Patient Demographics Patient Name: KINJAL LAW Patient Primary Phone: [phone] Patient Primary Address: [address] [place] [id number] Patient : 1950 Patient Age: 73 Caller/Recipient Relation to Patient: Self Administrative Administrative Note Reason: Medication Renewal [place] Medications Refill/Renewal Request: calling for renewal of: Rx #[id number] - SILDENAFIL CITRATE 100MG TAB to be mailed, demographics verified IMPORTANT: This note was created by [facility] staff. Please do not alert the staff member by adding them as a signer for future communications. Alerts are not monitored by this user. /subhash/ KAT MENDEZ VISN 1 [facility] AMSA Signed: 04/23/2024 08:33 Receipt Acknowledged By: 04/23/2024 12:56 /es/ CARLA KEENANN RN-BC REGISTERED NURSE 05/02/2024 16:16 /es/ CHIDI LAMBERT MD PRIMARY CARE PHYSICIAN KAT MENDEZ [facility] [place]
--- OUTSIDE RECORDS SUMMARY | 2024-08-30 19:43 | XMS_ITS | Encounter Summary ---
Author Name [facility] [place] Organization [facility] [place] Address [address] [place] [address] Care Team Providers Care Conformal Pad Former Name Role Phone JD GRAF Primary Care [...] PART A May 15, 2015 PART A [id number] 00A KINJAL LAW SR PATIENT Selected Encounter This section includes the information on record at [place] for the Encounter. Date/Time Encounter Type Encounter Description Reason Pro vider Source Apr 12, 2024 08:43 AM Outpatient Encounter OPTOMETRY IHE Encounter Template Text not used by [...] 20 appointments. The data comes from all [place] treatment facilities. Appointment Date/Time Appointment Type Appointme nt Facility Name Apr 17, 2024 02:30 PM AMBULATORY - MEDICINE [facility] [place] [facility] Apr 25, 2024 11:15 AM AMBULATORY - MEDICINE [facility] [place] [facility] Jun 11, 2024 01:00 PM AMBULATORY - NONE [facility] [place] [facility] Jun 20, 2024 02:00 PM [facility] Aug 16, 2024 09:00 AM [facility] - MEDICINE [facility] Sep 17, 2024 10:00 AM [facility]ULATORY - MEDICINE [facility] Social History: Smoking Status (Most current) and Tobacco Use (All prior to encounter date) This section includes the most current, and the historical, smoking and tobacco- related health factors from the [place] facility where the Encounter took place. Current Smoking Status This section includes the most current smoking, or tobacco-related health factor, from the [place] facility where the Encounter took place. Date/Time Current Smoking Status Comment [facility] Sep 14, 2023 10:00 AM VA-TOBACCO USER EVERY DAY [place] [facility] Tobacco Use History This section includes a history of the smoking, or tobacco-related health factors, that were collected on or before the date of the Encounter. The data comes from the [place] facility where the Encounter took place. Date/Time Smoking Status/Tobac co Use Comment Facility Sep 14, 2023 10:00 AM VA-TOBACCO USE 30 YEARS OR MORE [facility] [place] [facility] Sep 14, 2023 10:00 AM VA-TOBACCO USE ADVICE [facility] [place] [facility] Sep 14, 2023 10:00 AM VA-TOBACCO USE BLOCK SETTER GYPSUM NO [facility] [place] [facility] Sep 14, 2023 10:00 AM VA-TOBACCO USE MED NO [facility] [place] [facility] Sep 14, 2023 10:00 AM VA-TOBACCO USER EVERY DAY [facility] [place] [facility] Aug 02, 2022 01:11 PM VA-TOBACCO USE 30 YEARS OR MORE [facility] [place] [facility] Aug 02, 2022 01:11 PM VA-TOBACCO USE ADVICE [facility] [place] [facility] Aug 02, 2022 01:11 PM VA-TOBACCO USE BLOCK SETTER GYPSUM NO [facility] [place] [facility] Aug 02, 2022 01:11 PM VA-TOBACCO USE MED NO [facility] [place] [facility] Aug 02, 2022 01:11 PM VA-TOBACCO USE WI 30 MIN OF WAKEUP [facility] [place] [facility] Aug 02, 2022 01:11 PM VA-TOBACCO USER EVERY DAY [facility] [place] [facility] Jul 28, 2021 11:21 AM VA-TOBACCO USE 30 YEARS OR MORE [facility] [place] [facility] Jul 28, 2021 11:21 AM VA-TOBACCO USE ADVICE [facility] [place] [facility] Jul 28, 2021 11:21 AM VA-TOBACCO USE BLOCK SETTER GYPSUM NO [facility] [place] [facility] Jul 28, 2021 11:21 AM VA-TOBACCO USE MED NO [facility] [place] [facility] Jul 28, 2021 11:21 AM VA-TOBACCO USE WI 30 MIN OF WAKEUP [facility] [place] [facility] Jul 28, 2021 11:21 AM VA-TOBACCO USER EVERY DAY [facility] [place] [facility] Jun 04, 2020 01:59 PM VA-TOBACCO USE 30 YEARS OR MORE [facility] [place] [facility] Jun 04, 2020 01:59 PM VA-TOBACCO USE ADVICE [facility] [place] [facility] Jun 04, 2020 01:59 PM VA-TOBACCO USE BLOCK SETTER GYPSUM NO [facility] [place] [facility] Jun 04, 2020 01:59 PM VA-TOBACCO USE MED NO [facility] [place] [facility] Jun 04, 2020 01:59 PM VA-TOBACCO USE WI 30 MIN OF WAKEUP [facility] [place] [facility] Jun 04, 2020 01:59 PM VA-TOBACCO USER EVERY DAY [facility] [place] [facility] Mar 30, 2016 10:35 AM CURRENT SMOKER smokes about 1 pack every 3 days for about 45 years [facility] [place] [facility] Encounter Notes: All associated encounter notes This section contains the clinical notes associated to the Encounter. Date/Time Encounter Note(s) Provider Source Apr 12, 2024 08:43 AM OPTOMETRY NOTE: LOCAL TITLE: OPTOMETRY NOTE STANDARD TITLE: OPTOMETRY NOTE DATE OF NOTE: APR 12, 2024@08:43 ENTRY DATE: APR 12, 2024@08:43:38 AUTHOR: SUKHI SIMS EXP COSIGNER: URGENCY: STATUS: COMPLETED OPT HT ordered patient 1 time yearly replacement pair of eyeglasses as requested d/t lost pair, unrepairable/not under warranty, or scratched lenses Approved by provider but patient needs to keep upcoming appt and if RX does not change he will not be eligible for another pair, if his rx changs more than .50 there might be an exception. /subhash/ SUKHI VACA [facility] Signed: 04/12/2024 08:44 SUKHI SIMS [place] [facility]
--- OUTSIDE RECORDS SUMMARY | 2024-08-30 19:43 | XMS_ITS | Encounter Summary ---
Author Name [facility] [place] Organization [facility] [place] Address [address] [place] [address] Care Team Providers Care Manager Commodities Name Role Phone HOMARJD FIELD Primary Care Provider Unavailabl e Insurance Providers: [...] PART A May 15, 2015 PART A [id number] 00A KINJAL LAW SR PATIENT Selected Encounter This section includes the information on record at [place] for the Encounter. Date/Time Encounter Type Encounter Description Reason Pro vider Source Apr 20, 2024 02:49 PM Outpatient Encounter PRIMARY CARE/MEDICINE IHE Encounter Template Text not used by [place] Plan of Treatment: Future Appointments (+ 6 [...] 20 appointments. The data comes from all [place] treatment facilities. Appointment Date/Time Appointment Type Appointme nt Facility Name Apr 25, 2024 11:15 AM AMBULATORY - MEDICINE [facility] [place] [facility] Jun 11, 2024 01:00 PM AMBULATORY - NONE [facility] [place] [facility] Jun 20, 2024 02:00 PM AM[facility]ULATORY - MEDICINE [facility] Aug 16, 2024 09:00 AM AMBULATORY - MEDICINE [facility] Sep 17, 2024 10:00 AM [facility]BULATORY - MEDICINE [facility] Social History: Smoking Status (Most current) and Tobacco Use (All prior to encounter date) This section includes the most current, and the historical, smoking and tobacco- related health factors from the [place] facility where the Encounter took place. Current Smoking Status This section includes the most current smoking, or tobacco-related health factor, from the [place] facility where the Encounter took place. Date/Time Current Smoking Status Comment [facility] Sep 14, 2023 10:00 AM VA-TOBACCO USER EVERY DAY [place] [facility] Tobacco Use History This section includes a history of the smoking, or tobacco-related health factors, that were collected on or before the date of the Encounter. The data comes from the [place] facility where the Encounter took place. Date/Time Smoking Status/Tobac co Use Comment Facility Sep 14, 2023 10:00 AM VA-TOBACCO USE 30 YEARS OR MORE [facility] [place] [facility] Sep 14, 2023 10:00 AM VA-TOBACCO USE ADVICE [facility] [place] [facility] Sep 14, 2023 10:00 AM VA-TOBACCO USE ASSEMBLER FLUORESCENT LIGHTS NO [facility] [place] [facility] Sep 14, 2023 10:00 AM VA-TOBACCO USE MED NO [facility] [place] [facility] Sep 14, 2023 10:00 AM VA-TOBACCO USER EVERY DAY [facility] [place] [facility] Aug 02, 2022 01:11 PM VA-TOBACCO USE 30 YEARS OR MORE [facility] [place] [facility] Aug 02, 2022 01:11 PM VA-TOBACCO USE ADVICE [facility] [place] [facility] Aug 02, 2022 01:11 PM VA-TOBACCO USE ASSEMBLER FLUORESCENT LIGHTS NO [facility] [place] [facility] Aug 02, 2022 01:11 PM VA-TOBACCO USE MED NO [facility] [place] [facility] Aug 02, 2022 01:11 PM VA-TOBACCO USE WI 30 MIN OF WAKEUP [facility] [place] [facility] Aug 02, 2022 01:11 PM VA-TOBACCO USER EVERY DAY [facility] [place] [facility] Jul 28, 2021 11:21 AM VA-TOBACCO USE 30 YEARS OR MORE [facility] [place] [facility] Jul 28, 2021 11:21 AM VA-TOBACCO USE ADVICE [facility] [place] [facility] Jul 28, 2021 11:21 AM VA-TOBACCO USE 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 FLUORESCENT 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 NO [facility] [place] [facility] Jul 28, 2021 11:21 AM VA-TOBACCO USE MED NO [facility] [place] [facility] Jul 28, 2021 11:21 AM VA-TOBACCO USE WI 30 MIN OF WAKEUP [facility] [place] [facility] Jul 28, 2021 11:21 AM VA-TOBACCO USER EVERY DAY [facility] [place] [facility] Jun 04, 2020 01:59 PM VA-TOBACCO USE 30 YEARS OR MORE [facility] [place] [facility] Jun 04, 2020 01:59 PM VA-TOBACCO USE ADVICE [facility] [place] [facility] Jun 04, 2020 01:59 PM VA-TOBACCO USE 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 Date/Time Encounter Note(s) Provider Source Apr 20, 2024 02:51 PM LETTERS: LOCAL TITLE: PATIENT LETTER (T) STANDARD TITLE: LETTERS DATE OF NOTE: APR 20, 2024@14:51 ENTRY DATE: APR 20, 2024@14:51:23 AUTHOR: SAILAJA WOODY COSIGNER: URGENCY: STATUS: COMPLETED PATIENT LETTER (T) Has [facility]PARTMENT OF [facility] Toll Free Number Primary Care Telephone Assistance can be reached at extension [phone] [facility] scheduling can be reached at extension [phone] [facility] scheduling can be reached at ext [phone], [address] Date: APR 20, 2024 Dear : Our goal at the [facility] is to provide you with quality medical care. We have been trying to reach you unsuccessfully to schedule your follow up appt with your primary care provider CHIDI LAMBERT at [facility], [address] [place] [id number]. Please call us at Tuesday through Tuesday, 8am-4pm to schedule this appointment. 04/20/2024 ADDENDUM STATUS: COMPLETED THIS OCEAN EXPORT AGENT MAILED LETTER TO . /subhash/ LUI WOODY ADVANCED KELP GATHERER Signed: 04/20/2024 14:52 Sincerely, Your Primary Care Team [facility] [address] [phone] [place] [address] [facility] [address] [place] [address] [place] [address] [phone] [facility] [address] [facility],[address]st Floor [address] [place] [phone] [place] [address] LUI WOODY RUDOLPH Apr 20, 2024 02:49 PM ADMINISTRATIVE NOT E: LOCAL TITLE: ADMINISTRATIVE NOTE STANDARD TITLE: ADMINISTRATIVE NOTE DATE OF NOTE: APR 20, 2024@14:49 ENTRY DATE: APR 20, 2024@14:50:02 AUTHOR: SAILAJA WOODY COSIGNER: URGENCY: STATUS: COMPLETED THIS OCEAN EXPORT AGENT CALLED TO RESHEDULE CX CL F2F ANNUAL APPT FROM 04/25/2024 WITH CWM/SO/PACT EIGHT PROVIDER. NO ANSWER, LEFT MESSAGE FOR TO CALL AND RESCHEDULE APPT. /es/ LUI WOODY ADVANCED KELP GATHERER Signed: 04/20/2024 14:51 LUI WOODY GRAHAM
--- OUTSIDE RECORDS SUMMARY | 2024-08-30 19:43 | XMS_ITS | Encounter Summary ---
Author Name [facility] [place] [facility] [place] Address [address] [place] [address] Care Team Providers Care Billing Administrator Name Role Phone HOMAR JD Primary Care [...] PART A May 15, 2015 PART A [id number] 00A KINJAL LAW SR PATIENT Selected Encounter This section includes the information on record at [place] for the Encounter. Date/Time Encounter Type Encounter Description Reason Pro vider Source Apr 12, 2024 08:16 AM Outpatient Encounter OPTOMETRY IHE Encounter Template [...] 20 appointments. The data comes from all [place] treatment facilities. Appointment Date/Time Appointment Type Appointme nt Facility Name Apr 17, 2024 02:30 PM AMBULATORY [facility] MEDICINE [facility] [place] [facility] Apr 25, 2024 11:15 AM AMBULATORY - MEDICINE [facility] [place] [facility] Jun 11, 2024 01:00 PM AMBULATORY - NONE [facility] [place] [facility] Jun 20, 2024 02:00 PM [facility]ORY [facility]INE [facility] Aug 16, 2024 09:00 AM [facility]BULATORY - MEDICINE [facility] Sep 17, 2024 10:00 AM [facility]BULATORY - MEDICINE [facility] Social History: Smoking Status (Most current) and Tobacco Use (All prior to encounter date) This section includes the most current, and the historical, smoking and tobacco- related health factors from the [place] facility where the Encounter took place. Current Smoking Status This section includes the most current smoking, or tobacco-related health factor, from the [place] facility where the Encounter took place. Date/Time Current Smoking Status Comment [facility] Sep 14, 2023 10:00 AM VA-TOBACCO USER EVERY DAY [place] [facility] Tobacco Use History This section includes a history of the smoking, or tobacco-related health factors, that were collected on or before the date of the Encounter. The data comes from the [place] facility where the Encounter took place. Date/Time Smoking Status/Tobac co Use Comment Facility Sep 14, 2023 10:00 AM VA-TOBACCO USE 30 YEARS OR MORE [facility] [place] [facility] Sep 14, 2023 10:00 AM VA-TOBACCO USE ADVICE [facility] [place] [facility] Sep 14, 2023 10:00 AM VA-TOBACCO USE DIRECTOR TRADING NO [facility] [place] [facility] Sep 14, 2023 10:00 AM VA-TOBACCO USE MED NO [facility] [place] [facility] Sep 14, 2023 10:00 AM VA-TOBACCO USER EVERY DAY [facility] [place] [facility] Aug 02, 2022 01:11 PM VA-TOBACCO USE 30 YEARS OR MORE [facility] [place] [facility] Aug 02, 2022 01:11 PM VA-TOBACCO USE ADVICE [facility] [place] [facility] Aug 02, 2022 01:11 PM VA-TOBACCO USE DIRECTOR TRADING NO [facility] [place] [facility] Aug 02, 2022 01:11 PM VA-TOBACCO USE MED NO [facility] [place] [facility] Aug 02, 2022 01:11 PM VA-TOBACCO USE [place] 30 MIN OF WAKEUP [facility] [place] [facility] Aug 02, 2022 01:11 PM VA-TOBACCO USER EVERY DAY [facility] [place] [facility] Jul 28, 2021 11:21 AM VA-TOBACCO USE 30 YEARS OR MORE [facility] [place] [facility] Jul 28, 2021 11:21 AM VA-TOBACCO USE ADVICE [facility] [place] [facility] Jul 28, 2021 11:21 AM VA-TOBACCO USE DIRECTOR TRADING NO [facility] [place] [facility] Jul 28, 2021 11:21 AM VA-TOBACCO USE MED NO [facility] [place] [facility] Jul 28, 2021 11:21 AM VA-TOBACCO USE [place] 30 MIN OF WAKEUP [facility] [place] [facility] Jul 28, 2021 11:21 AM VA-TOBACCO USER EVERY DAY [facility] [place] [facility] Jun 04, 2020 01:59 PM VA-TOBACCO USE 30 YEARS OR MORE [facility] [place] [facility] Jun 04, 2020 01:59 PM VA-TOBACCO USE ADVICE [facility] [place] [facility] Jun 04, 2020 01:59 PM VA-TOBACCO USE DIRECTOR TRADING NO [facility] [place] [facility] Jun 04, 2020 01:59 PM VA-TOBACCO USE MED NO [facility] [place] [facility] Jun 04, 2020 01:59 PM VA-TOBACCO USE [place] 30 MIN OF WAKEUP [facility] [place] [facility] Jun 04, 2020 01:59 PM VA-TOBACCO USER EVERY DAY [facility] [place] [facility] Mar 30, 2016 10:35 AM CURRENT SMOKER smokes about 1 pack every 3 days for about 45 years [facility] [place] [facility] Encounter Notes: All associated encounter notes This section contains the clinical notes associated to the Encounter. Date/Time Encounter Note(s) Provider Source Apr 12, 2024 08:40 AM ADDENDUM: LOCAL TITLE: Addendum STANDARD TITLE: ADDENDUM DATE OF NOTE: APR 12, 2024@08:40:22 ENTRY DATE: APR 12, 2024@08:40:22 AUTHOR: SUKHI SIMS COSIGNER: URGENCY: STATUS: COMPLETED Spoke with patient to inform him that I spoke with Dr. Larsen and he states that patient can get one more replacement pair but needs to keep Aug 06 2024 appt. and if his RX does not change he will not be eligible for new glasses, if his RX changes more then .50 then there might be an exception. Patient was happy for the call and understood. /subhash/ SUKHI SIMS [facility] Signed: 04/12/2024 08:42 Receipt Acknowledged By: 04/12/2024 08:43 /es/ VIKY LARSEN OD Separations Scientist ====== --- Original Document --- 04/12/24 TELEPHONE NOTE/SPECIALTY CLINIC: [place] asking for replacment pair of the glasses he received in January.Per his glasses were run ove car. Pt would like this to be mailed to him, address on file confirmed. /subhash/ COLE LOVE ADVANCED ITALIAN TEACHER Signed: 04/12/2024 08:18 Receipt Acknowledged By: * AWAITING SIGNATURE * CHAUNCEY GRAHAM 04/12/2024 08:40 /subhash/ SUKHI SIMS [facility] * AWAITING SIGNATURE * RACHEL BERGER ALISHA ANN [facility] [place] [facility] Apr 12, 2024 08:16 AM TELEPHONE ENCOUNTE R NOTE: LOCAL TITLE: TELEPHONE NOTE/SPECIALTY CLINIC STANDARD TITLE: TELEPHONE ENCOUNTER NOTE DATE OF NOTE: APR 12, 2024@08:16 ENTRY DATE: APR 12, 2024@08:16:17 AUTHOR: COLE LOVE EXP COSIGNER: URGENCY: STATUS: COMPLETED TELEPHONE NOTE/SPECIALTY CLINIC Has ADDENDA [place] asking for replacment pair of the glasses he received in January.Per his glasses were run ove car. Pt would like this to be mailed to him, address on file confirmed. /subhash/ COLE LOVE ADVANCED ITALIAN TEACHER Signed: 04/12/2024 08:18 Receipt Acknowledged By: 04/12/2024 09:01 /es/ CHAUNCEY GRAHAM OPTOMETRY TECH 04/12/2024 08:40 /es/ SUKHI VACA [facility] TECHINICIAN 04/12/2024 08:57 /es/ Rachel Berger Optometry Health Fire Inspector 04/12/2024 ADDENDUM STATUS: COMPLETED Spoke with patient to inform him that I spoke with Dr. Larsen and he states that patient can get one more replacement pair but needs to keep Aug 06 2024 appt. and if his RX does not change he will not be eligible for new glasses, if his RX changes more then .50 then there might be an exception. Patient was happy for the call and understood. /subhash/ [facility]KHI [facility] Signed: 04/12/2024 08:42 Receipt Acknowledged By: 04/12/2024 08:43 /es/ VIKY LARSEN OD Separations Scientist COLE LOVE [facility]
--- OUTSIDE RECORDS SUMMARY | 2024-08-30 19:43 | XMS_ITS ---
Author Name [facility] [place] Organization [facility] [place] Address [address] [place] [address] Care Team Providers Care Awning Craftsman Name Role Phone HOMAR JD Primary Care [...] PART A May 15, 2015 PART A [id number] 00A KINJAL LAW SR PATIENT Selected Encounter This section includes the information on record at [place] for the Encounter. Date/Time Encounter Type Encounter Description Reason Pro vider Source Mar 14, 2024 12:00 AM Outpatient Encounter COMMUNITY CARE CONSULT IHE Encounter [...] 20 appointments. The data comes from all [place] treatment facilities. Appointment Date/Time Appointment Type Appointme nt Facility Name Mar 29, 2024 02:30 PM AMBULATORY - MEDICINE [facility] [place] [facility] Apr 17, 2024 02:30 PM AMBULATORY - MEDICINE [facility] [place] [facility] Apr 25, 2024 11:15 AM AMBULATORY - MEDICINE [facility] [place] [facility] Jun 11, 2024 01:00 PM AMBULATORY - NONE [facility] [place] [facility] Jun 20, 2024 02:00 PM [facility] Aug 16, 2024 09:00 AM [facility] Social History: Smoking Status (Most current) and Tobacco Use (All prior to encounter date) This section includes the most current, and the historical, smoking and tobacco- related health factors from the [place] facility where the Encounter took place. Current Smoking Status This section includes the most current smoking, or tobacco-related health factor, from the [place] facility where the Encounter took place. Date/Time Current Smoking Status Comment [facility] Sep 14, 2023 10:00 AM VA-TOBACCO USER EVERY DAY [place] [facility] Tobacco Use History This section includes a history of the smoking, or tobacco-related health factors, that were collected on or before the date of the Encounter. The data comes from the [place] facility where the Encounter took place. Date/Time Smoking Status/Tobac co Use Comment Facility Sep 14, 2023 10:00 AM VA-TOBACCO USE 30 YEARS OR MORE [facility] [place] [facility] Sep 14, 2023 10:00 AM VA-TOBACCO USE ADVICE [facility] [place] [facility] Sep 14, 2023 10:00 AM VA-TOBACCO USE STONECUTTER NO [facility] [place] [facility] Sep 14, 2023 10:00 AM VA-TOBACCO USE MED NO [facility] [place] [facility] Sep 14, 2023 10:00 AM VA-TOBACCO USER EVERY DAY [facility] [place] [facility] Aug 02, 2022 01:11 PM VA-TOBACCO USE 30 YEARS OR MORE [facility] [place] [facility] Aug 02, 2022 01:11 PM VA-TOBACCO USE ADVICE [facility] [place] [facility] Aug 02, 2022 01:11 PM VA-TOBACCO USE STONECUTTER NO [facility] [place] [facility] Aug 02, 2022 01:11 PM VA-TOBACCO USE MED NO [facility] [place] [facility] Aug 02, 2022 01:11 PM VA-TOBACCO USE WI 30 MIN OF WAKEUP [facility] [place] [facility] Aug 02, 2022 01:11 PM VA-TOBACCO USER EVERY DAY [facility] [place] [facility] Jul 28, 2021 11:21 AM VA-TOBACCO USE 30 YEARS OR MORE [facility] [place] [facility] Jul 28, 2021 11:21 AM VA-TOBACCO USE ADVICE [facility] [place] [facility] Jul 28, 2021 11:21 AM VA-TOBACCO USE STONECUTTER NO [facility] [place] [facility] Jul 28, 2021 11:21 AM VA-TOBACCO USE MED NO [facility] [place] [facility] Jul 28, 2021 11:21 AM VA-TOBACCO USE [place] 30 MIN OF WAKEUP [facility] [place] [facility] Jul 28, 2021 11:21 AM VA-TOBACCO USER EVERY DAY [facility] [place] [facility] Jun 04, 2020 01:59 PM VA-TOBACCO USE 30 YEARS OR MORE [facility] [place] [facility] Jun 04, 2020 01:59 PM VA-TOBACCO USE ADVICE [facility] [place] [facility] Jun 04, 2020 01:59 PM VA-TOBACCO USE STONECUTTER NO [facility] [place] [facility] Jun 04, 2020 01:59 PM VA-TOBACCO USE MED NO [facility] [place] [facility] Jun 04, 2020 01:59 PM VA-TOBACCO USE WI 30 MIN OF WAKEUP [facility] [place] [facility] Jun 04, 2020 01:59 PM VA-TOBACCO USER EVERY DAY [facility] [place] [facility] Mar 30, 2016 10:35 AM CURRENT SMOKER smokes about 1 pack every 3 days for about 45 years [facility] [place] [facility] Encounter Notes: All associated encounter notes This section contains the clinical notes associated to the Encounter. Date/Time Encounter Note(s) Provider Source Mar 14, 2024 12:00 AM NONVA CONSULT: LOCAL TITLE: COMMUNITY CARE-CONSULT RESULT NOTE STANDARD TITLE: NONVA CONSULT DATE OF NOTE: MAR 14, 2024 ENTRY DATE: MAY 31, 2024@06:51:03 AUTHOR: ROBB VITALE EXP COSIGNER: URGENCY: STATUS: COMPLETED VistA Imaging - Scanned Document SCANNED DOCUMENT SIGNATURE NOT REQUIRED Electronically Filed: 05/31/2024 by: ROBB VITALE BRAKE MECHANIC ROBB VITALE [place] [facility]
--- OUTSIDE RECORDS SUMMARY | 2024-08-30 19:43 | XMS_ITS ---
Author Name [facility] [place] Organization [facility] [place] Address [address] [place] [address] Care Team Providers Care Vinyl Top Installer Name Role Phone HOMAR JD Primary Care [...] PART A May 15, 2015 PART A [id number] 00A KINJAL LAW SR PATIENT Selected Encounter This section includes the information on record at [place] for the Encounter. Date/Time Encounter Type Encounter Description Reason Pro vider Source Mar 29, 2024 12:00 PM Outpatient Encounter COMMUNITY CARE [...] 20 appointments. The data comes from all [place] treatment facilities. Appointment Date/Time Appointment Type Appointme nt Facility Name Apr 17, 2024 02:30 PM AMBULATORY - MEDICINE [facility] [place] [facility] Apr 25, 2024 11:15 AM AMBULATORY - MEDICINE [facility] [place] [facility] Jun 11, 2024 01:00 PM AMBULATORY - NONE [facility] [place] [facility] Jun 20, 2024 02:00 PM [facility]ICINE [facility] Aug 16, 2024 09:00 AM [facility]IC[facility] Sep 17, 2024 10:00 AM [facility] Social History: Smoking Status (Most current) and Tobacco Use (All prior to encounter date) This section includes the most current, and the historical, smoking and tobacco- related health factors from the [place] facility where the Encounter took place. Current Smoking Status This section includes the most current smoking, or tobacco-related health factor, from the [place] facility where the Encounter took place. Date/Time Current Smoking Status Comment [facility] Sep 14, 2023 10:00 AM VA-TOBACCO USER EVERY DAY [place] [facility] Tobacco Use History This section includes a history of the smoking, or tobacco-related health factors, that were collected on or before the date of the Encounter. The data comes from the [place] facility where the Encounter took place. Date/Time Smoking Status/Tobac co Use Comment Facility Sep 14, 2023 10:00 AM VA-TOBACCO USE 30 YEARS OR MORE [facility] [place] [facility] Sep 14, 2023 10:00 AM VA-TOBACCO USE ADVICE [facility] [place] [facility] Sep 14, 2023 10:00 AM VA-TOBACCO USE DRY PASTE SUPERVISOR NO [facility] [place] [facility] Sep 14, 2023 10:00 AM VA-TOBACCO USE MED NO [facility] [place] [facility] Sep 14, 2023 10:00 AM VA-TOBACCO USER EVERY DAY [facility] [place] [facility] Aug 02, 2022 01:11 PM VA-TOBACCO USE 30 YEARS OR MORE [facility] [place] [facility] Aug 02, 2022 01:11 PM VA-TOBACCO USE ADVICE [facility] [place] [facility] Aug 02, 2022 01:11 PM VA-TOBACCO USE DRY PASTE SUPERVISOR NO [facility] [place] [facility] Aug 02, 2022 01:11 PM VA-TOBACCO USE MED NO [facility] [place] [facility] Aug 02, 2022 01:11 PM VA-TOBACCO USE [place] 30 MIN OF WAKEUP [facility] [place] [facility] Aug 02, 2022 01:11 PM VA-TOBACCO USER EVERY DAY [facility] [place] [facility] Jul 28, 2021 11:21 AM VA-TOBACCO USE 30 YEARS OR MORE [facility] [place] [facility] Jul 28, 2021 11:21 AM VA-TOBACCO USE ADVICE [facility] [place] [facility] Jul 28, 2021 11:21 AM VA-TOBACCO USE DRY PASTE SUPERVISOR NO [facility] [place] [facility] Jul 28, 2021 11:21 AM VA-TOBACCO USE MED NO [facility] [place] [facility] Jul 28, 2021 11:21 AM VA-TOBACCO USE [place] 30 MIN OF WAKEUP [facility] [place] [facility] Jul 28, 2021 11:21 AM VA-TOBACCO USER EVERY DAY [facility] [place] [facility] Jun 04, 2020 01:59 PM VA-TOBACCO USE 30 YEARS OR MORE [facility] [place] [facility] Jun 04, 2020 01:59 PM VA-TOBACCO USE ADVICE [facility] [place] [facility] Jun 04, 2020 01:59 PM VA-TOBACCO USE DRY PASTE SUPERVISOR NO [facility] [place] [facility] Jun 04, 2020 01:59 PM VA-TOBACCO USE MED NO [facility] [place] [facility] Jun 04, 2020 01:59 PM VA-TOBACCO USE [place] 30 MIN OF WAKEUP [facility] [place] [facility] Jun 04, 2020 01:59 PM VA-TOBACCO USER EVERY DAY [facility] [place] [facility] Mar 30, 2016 10:35 AM CURRENT SMOKER smokes about 1 pack every 3 days for about 45 years [facility] [place] [facility] Encounter Notes: All associated encounter notes This section contains the clinical notes associated to the Encounter. Date/Time Encounter Note(s) Provider Source Mar 29, 2024 12:00 PM NONVA CONSULT: LOCAL TITLE: COMMUNITY CARE-CONSULT RESULT NOTE STANDARD TITLE: NONVA CONSULT DATE OF NOTE: MAR 29, 2024@12:00 ENTRY DATE: JUN 11, 2024@10:19:39 AUTHOR: JEET BARROW EXP COSIGNER: URGENCY: STATUS: COMPLETED VistA Imaging - Scanned Document SCANNED DOCUMENT SIGNATURE NOT REQUIRED Electronically Filed: 06/11/2024 by: JEET MCCAULEY [facility]
--- OUTSIDE RECORDS SUMMARY | 2024-08-30 19:43 | XMS_ITS ---
Author Name [facility] [place] Organization [facility] [place] Address [address] [place] [address] Care Team Providers Care Cable Layer Name Role Phone JD GRAF Primary Care [...] PART A May 15, 2015 PART A [id number] [id number] KINJAL LAW SR PATIENT Selected Encounter This section includes the information on record at [place] for the Encounter. Date/Time Encounter Type Encounter Description Reason Pro vider Source Mar 28, 2024 09:53 AM Outpatient Encounter ADMIN PAT ACTIVTIES (MASNONCT) IHE Encounter Template Text not used by [place] Plan of Treatment: Future Appointments (+ 6 [...] 20 appointments. The data comes from all [place] treatment facilities. Appointment Date/Time Appointment Type Appointme nt Facility Name Mar 29, 2024 02:30 PM AMBULATORY [facility] MEDICINE [facility] [place] [facility] Apr 17, 2024 02:30 PM AMBULATORY - MEDICINE [facility] [place] [facility] Apr 25, 2024 11:15 AM AMBULATORY - MEDICINE [facility] [place] [facility] Jun 11, 2024 01:00 PM AMBULATORY - NONE [facility] [place] [facility] Jun 20, 2024 02:00 PM [facility] Aug 16, 2024 09:00 AM [facility] Sep 17, 2024 10:00 AM [facility] Social History: Smoking Status (Most current) and Tobacco Use (All prior to encounter date) This section includes the most current, and the historical, smoking and tobacco- related health factors from the [place] facility where the Encounter took place. Current Smoking Status This section includes the most current smoking, or tobacco-related health factor, from the [place] facility where the Encounter took place. Date/Time Current Smoking Status Comment [facility] Sep 14, 2023 10:00 AM VA-TOBACCO DOESNT USE WI 30 MIN WAKEUP [facility] Tobacco Use History This section includes a history of the smoking, or tobacco-related health factors, that were collected on or before the date of the Encounter. The data comes from the [place] facility where the Encounter took place. 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 [facility] [place] [facility] Sep 14, 2023 10:00 AM VA-TOBACCO USE MED NO [facility] [place] [facility] Sep 14, 2023 10:00 AM VA-TOBACCO USER EVERY DAY [place] [facility] [place] [facility] Aug 02, 2022 01:11 PM VA-TOBACCO USE 30 YEARS OR MORE [facility] [place] [facility] Aug 02, 2022 01:11 PM VA-TOBACCO USE ADVICE [facility] [place] [facility] Aug 02, 2022 01:11 PM VA-TOBACCO USE PRODUCTION QUALITY ANALYST NO [facility] [place] [facility] Aug 02, 2022 01:11 PM VA-TOBACCO USE MED NO [facility] [place] [facility] Aug 02, 2022 01:11 PM VA-TOBACCO USE WI 30 MIN OF WAKEUP [facility] [place] [facility] Aug 02, 2022 01:11 PM VA-TOBACCO USER EVERY DAY [facility] [place] [facility] Jul 28, 2021 11:21 AM VA-TOBACCO USE 30 YEARS OR MORE [facility] [place] [facility] Jul 28, 2021 11:21 AM VA-TOBACCO USE ADVICE [facility] [place] [facility] Jul 28, 2021 11:21 AM VA-TOBACCO USE PRODUCTION QUALITY ANALYST NO [facility] [place] [facility] Jul 28, 2021 11:21 AM VA-TOBACCO USE MED NO [facility] [place] [facility] Jul 28, 2021 11:21 AM VA-TOBACCO USE WI 30 MIN OF WAKEUP [facility] [place] [facility] Jul 28, 2021 11:21 AM VA-TOBACCO USER EVERY DAY [facility] [place] [facility] Jun 04, 2020 01:59 PM VA-TOBACCO USE 30 YEARS OR MORE [facility] [place] [facility] Jun 04, 2020 01:59 PM VA-TOBACCO USE ADVICE [facility] [place] [facility] Jun 04, 2020 01:59 PM VA-TOBACCO USE PRODUCTION QUALITY ANALYST NO [facility] [place] [facility] Jun 04, 2020 01:59 PM VA-TOBACCO USE MED NO [facility] [place] [facility] Jun 04, 2020 01:59 PM VA-TOBACCO USE WI 30 MIN OF WAKEUP [facility] [place] [facility] Jun 04, 2020 01:59 PM VA-TOBACCO USER EVERY DAY [facility] [place] [facility] Mar 30, 2016 10:35 AM CURRENT SMOKER smokes about 1 pack every 3 days for about 45 years [facility] Encounter Notes: All associated encounter notes This section contains the clinical notes associated to the Encounter. Date/Time Encounter Note(s) Provider Source Mar 28, 2024 09:53 AM ADMINISTRATIVE NOT E: LOCAL TITLE: CCC: SCHEDULING ADMINISTRATION STANDARD TITLE: ADMINISTRATIVE NOTE DATE OF NOTE: MAR 28, 2024@09:53:47 ENTRY DATE: MAR 28, 2024@09:53:48 AUTHOR: MELISSA DUEÑAS EXP COSIGNER: URGENCY: STATUS: COMPLETED CCC: SCHEDULING ADMINISTRATION Has ADDENDA Patient Demographics Patient Name: KINJAL LAW Patient Primary Phone: [phone] Patient Primary Address: [address] [place] [id number] Patient : 1950 Patient Age: 73 Caller/Recipient Relation to Patient: Self Administrative Administrative Note Reason: Other Administrative Note Comments: [place] states he will be having tooth removed at [facility] but states he is confused. I asked if he needed to speak with dental instead and he said no it has to be pcp. He would like a call back [phone]. thank you IMPORTANT: This note was created by [facility] Clinical Contact Center staff. Please do not alert the staff member by adding them as a signer for future communications. Alerts are not monitored by this user. /subhash/ MELISSA DUEÑAS Signed: 03/28/2024 09:53 Receipt Acknowledged By: 04/02/2024 15:08 /subhash/ CARLA KEENANN RN-BC REGISTERED NURSE 03/28/2024 10:10 /subhash/ BANDAR MORALES LPN Licensed Practical Nurse 03/28/2024 ADDENDUM STATUS: COMPLETED Called and spoke with stated that just called [facility] at [place], [place] and he is all set. /subhash/ BANDRA MORALES LPN Licensed Practical Nurse Signed: 03/28/2024 10:13 MELISSA DUEÑAS [facility]
--- OUTSIDE RECORDS SUMMARY | 2024-08-30 19:43 | XMS_ITS | Encounter Summary ---
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 Date/Time Encounter Type Encounter Description Reason Pro vider Source Apr 17, 2024 12:00 AM Outpatient Encounter EVENT (HISTORICAL) IHE Encounter Template Text not used by [...] 20 appointments. The data comes from all [place] treatment facilities. Appointment Date/Time Appointment Type Appointme nt Facility Name Apr 25, 2024 11:15 AM AMBULATORY - MEDICINE [facility] [place] [facility] Jun 11, 2024 01:00 PM AMBULATORY - NONE [facility] [place] [facility] Jun 20, 2024 02:00 PM [facility]ICINE [facility] Aug 16, 2024 09:00 AM [facility] - MEDICINE [facility] Sep 17, 2024 10:00 AM [facility]AT[facility] - [facility]ICINE [facility] Social History: Smoking Status (Most current) and Tobacco Use (All prior to encounter date) This section includes the most current, and the historical, smoking and tobacco- related health factors from the [place] facility where the Encounter took place. Current Smoking Status This section includes the most current smoking, or tobacco-related health factor, from the [place] facility where the Encounter took place. Date/Time Current Smoking Status Comment [facility] Sep 14, 2023 10:00 AM VA-TOBACCO USER EVERY DAY [place] [facility] Tobacco Use History This section includes a history of the smoking, or tobacco-related health factors, that were collected on or before the date of the Encounter. The data comes from the [place] facility where the Encounter took place. Date/Time Smoking Status/Tobac co Use Comment Facility Sep 14, 2023 10:00 AM VA-TOBACCO USE 30 YEARS OR MORE [facility] [place] [facility] Sep 14, 2023 10:00 AM VA-TOBACCO USE ADVICE [facility] [place] 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 Sep 14, 2023 10:00 AM VA-TOBACCO USE MED NO [facility] [place] [facility] Sep 14, 2023 10:00 AM VA-TOBACCO USER EVERY DAY [facility] [place] [facility] Aug 02, 2022 01:11 PM VA-TOBACCO USE 30 YEARS OR MORE [facility] [place] [facility] Aug 02, 2022 01:11 PM VA-TOBACCO USE ADVICE [facility] [place] 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 Aug 02, 2022 01:11 PM VA-TOBACCO USE MED NO [facility] [place] [facility] Aug 02, 2022 01:11 PM VA-TOBACCO USE WI 30 MIN OF WAKEUP [facility] [place] [facility] Aug 02, 2022 01:11 PM VA-TOBACCO USER EVERY DAY [facility] [place] [facility] Jul 28, 2021 11:21 AM VA-TOBACCO USE 30 YEARS OR MORE [facility] [place] [facility] Jul 28, 2021 11:21 AM VA-TOBACCO USE ADVICE [facility] [place] 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 Jul 28, 2021 11:21 AM VA-TOBACCO USE MED NO [facility] [place] [facility] Jul 28, 2021 11:21 AM VA-TOBACCO USE WI 30 MIN OF WAKEUP [facility] [place] [facility] Jul 28, 2021 11:21 AM VA-TOBACCO USER EVERY DAY [facility] [place] [facility] Jun 04, 2020 01:59 PM VA-TOBACCO USE 30 YEARS OR MORE [facility] [place] [facility] Jun 04, 2020 01:59 PM VA-TOBACCO USE ADVICE [facility] [place] 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 Jun 04, 2020 01:59 PM VA-TOBACCO USE MED NO [facility] [place] [facility] Jun 04, 2020 01:59 PM VA-TOBACCO USE WI 30 MIN OF WAKEUP [facility] [place] [facility] Jun 04, 2020 01:59 PM VA-TOBACCO USER EVERY DAY [facility] [place] [facility] Mar 30, 2016 10:35 AM CURRENT SMOKER smokes about 1 pack every 3 days for about 45 years [facility] [place] [facility] Encounter Notes: All associated encounter notes This section contains the clinical notes associated to the Encounter. Date/Time Encounter Note(s) Provider Source Apr 17, 2024 12:00 AM NONVA CONSULT: LOCAL TITLE: COMMUNITY CARE-CONSULT RESULT NOTE STANDARD TITLE: NONVA CONSULT DATE OF NOTE: APR 17, 2024 ENTRY DATE: MAY 10, 2024@10:35:29 AUTHOR: CARLITO SKAGGS EXP COSIGNER: URGENCY: STATUS: COMPLETED VistA Imaging - Scanned Document SCANNED DOCUMENT SIGNATURE NOT REQUIRED Electronically Filed: 05/10/2024 by: CARLITO ESCOBEDO [place] [facility]
--- OUTSIDE RECORDS SUMMARY | 2024-08-30 19:44 | XMS_ITS ---
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 Date/Time Encounter Type Encounter Description Reason Pro vider Source Feb 20, 2024 09:03 AM Outpatient Encounter ADMIN PAT ACTIVTIES (MASNONCT) IHE Encounter Template Text not used by [place] Plan of Treatment: Future Appointments (+ 6 [...] 20 appointments. The data comes from all [place] treatment facilities. Appointment Date/Time Appointment Type Appointme nt Facility Name Feb 24, 2024 09:00 AM AMBULATORY - MEDICINE [facility] [place] [facility] Mar 07, 2024 09:00 AM AM[facility]ATORY - MEDICINE [facility] [place] Mar 09, 2024 09:00 AM AM[facility]ORY - MEDICINE [facility] [place] Mar 09, 2024 09:15 AM AMBULATORY - MEDICINE [facility] [place] Mar 14, 2024 10:00 AM AMBULATORY - MEDICINE [facility] [place] [facility] Mar 29, 2024 02:30 PM AMBULATORY - MEDICINE [facility] [place] [facility] Apr 17, 2024 02:30 PM AMBULATORY - MEDICINE [facility] [place] [facility] Apr 25, 2024 11:15 AM AMBULATORY - MEDICINE [facility] [place] [facility] Jun 11, 2024 01:00 PM AMBULATORY - NONE [facility] [place] [facility] Jun 20, 2024 02:00 PM AM[facility]ULATORY - MEDICINE [facility] [place] Aug 16, 2024 09:00 [facility] Social History: Smoking Status (Most current) and Tobacco Use (All prior to encounter date) This section includes the most current, and the historical, smoking and tobacco- related health factors from the [place] facility where the Encounter took place. Current Smoking Status This section includes the most current smoking, or tobacco-related health factor, from the [place] facility where the Encounter took place. Date/Time Current Smoking Status Comment [facility] Sep 14, 2023 10:00 AM VA-TOBACCO DOESNT USE WI 30 MIN WAKEUP [facility] Tobacco Use History This section includes a history of the smoking, or tobacco-related health factors, that were collected on or before the date of the Encounter. The data comes from the [place] facility where the Encounter took place. 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 [facility] [place] [facility] Sep 14, 2023 10:00 AM VA-TOBACCO USE MED NO [facility] [place] [facility] Sep 14, 2023 10:00 AM VA-TOBACCO USER EVERY DAY [facility] [place] [facility] Aug 02, 2022 01:11 PM VA-TOBACCO USE 30 YEARS OR MORE [facility] [place] [facility] Aug 02, 2022 01:11 PM VA-TOBACCO USE ADVICE [facility] [place] [facility] Aug 02, 2022 01:11 PM VA-TOBACCO USE MAGAZINE KEEPER NO [facility] [place] [facility] Aug 02, 2022 01:11 PM VA-TOBACCO USE MED NO [facility] [place] [facility] Aug 02, 2022 01:11 PM VA-TOBACCO USE WI 30 MIN OF WAKEUP [facility] [place] [facility] Aug 02, 2022 01:11 PM VA-TOBACCO USER EVERY DAY [facility] [place] [facility] Jul 28, 2021 11:21 AM VA-TOBACCO USE 30 YEARS OR MORE [facility] [place] [facility] Jul 28, 2021 11:21 AM VA-TOBACCO USE ADVICE [facility] [place] [facility] Jul 28, 2021 11:21 AM VA-TOBACCO USE MAGAZINE KEEPER NO [facility] [place] [facility] Jul 28, 2021 11:21 AM VA-TOBACCO USE MED NO [facility] [place] [facility] Jul 28, 2021 11:21 AM VA-TOBACCO USE WI 30 MIN OF WAKEUP [facility] [place] [facility] Jul 28, 2021 11:21 AM VA-TOBACCO USER EVERY DAY [facility] [place] [facility] Jun 04, 2020 01:59 PM VA-TOBACCO USE 30 YEARS OR MORE [facility] [place] [facility] Jun 04, 2020 01:59 PM VA-TOBACCO USE ADVICE [facility] [place] [facility] Jun 04, 2020 01:59 PM VA-TOBACCO USE MAGAZINE KEEPER NO [facility] [place] [facility] Jun 04, 2020 01:59 PM [facility] Jun 04, 2020 01:59 PM VA-TOBACCO USE [place] 30 MIN OF WAKEUP [facility] Jun 04, 2020 01:59 PM VA-TOBACCO USER [facility] Mar 30, 2016 10:35 AM CURRENT SMOKER smokes about 1 pack every 3 days for about 45 years [facility] Encounter Notes: All associated encounter notes This section contains the clinical notes associated to the Encounter. Date/Time Encounter Note(s) Provider Source Feb 20, 2024 09:03 AM ADMINISTRATIVE NOT E: LOCAL TITLE: CCC: SCHEDULING ADMINISTRATION STANDARD TITLE: ADMINISTRATIVE NOTE DATE OF NOTE: FEB 20, 2024@09:03:41 ENTRY DATE: FEB 20, 2024@09:03:42 AUTHOR: SHARON GARCIA EXP COSIGNER: URGENCY: STATUS: COMPLETED Patient Demographics Patient Name: KINJAL LAW Patient Primary Phone: [phone] Patient Primary Address: [address] [place] [id number] Patient : 1950 Patient Age: 73 Call Back Number: [phone] Caller/Recipient Relation to Patient: Self Administrative Administrative Note Reason: Other Administrative Note Comments: [place] requesting a call back from [facility] regarding he is seeing blood in his stools and leaking a liquid substance from his anus. TW also transferred to triage, and wanted a note sent to [facility]. [place] can be reached at [phone] /subhash/ SHARON ROBERTO [facility] Signed: 02/20/2024 09:03 Receipt Acknowledged By: 02/20/2024 09:39 /es/ CARLA KEENANN RN-BC REGISTERED NURSE 02/21/2024 10:21 /es/ BANDAR MORALES LPN Licensed Practical Nurse SHARON GARCIA [facility]
--- OUTSIDE RECORDS SUMMARY | 2024-08-30 19:44 | XMS_ITS | Encounter Summary ---
Author Name [facility] [place] [facility] [place] [facility] [place] Address [address] [place] [address] Care Team Providers Care End Packer Name Role Phone JD GRAF Primary Care [...] PART A May 15, 2015 PART A [id number] [id number] KINJAL LAW SR PATIENT Selected Encounter This section includes the information on record at [place] for the Encounter. Date/Time Encounter Type Encounter Description Reason Pro vider Source Feb 20, 2024 09:21 AM Outpatient Encounter TELEPHONE TRIAGE IHE Encounter Template Text not used by [...] 20 appointments. The data comes from all [place] treatment facilities. Appointment Date/Time Appointment Type Appointme nt Facility Name Feb 24, 2024 09:00 AM AMBULATORY [facility]ICINE [facility] [place] [facility] Mar 07, 2024 09:00 AM [facility] [place]IC[place] [place] Mar 09, 2024 09:00 AM [facility]ORY - [facility]IC[place] Mar 09, 2024 09:15 AM [facility]ORY - [place]IC[place] Mar 14, 2024 10:00 AM AM[facility]UL[facility]ORY [facility]ICINE [facility] [place] [facility] Mar 29, 2024 02:30 PM AMBULATORY - MEDICINE [facility] [place] [facility] Apr 17, 2024 02:30 PM AMBULATORY [facility] MEDICINE [facility] [place] [facility] Apr 25, 2024 11:15 AM AMBULATORY [facility] MEDICINE [facility] [place] [facility] Jun 11, 2024 01:00 PM AMBULATORY - NONE [facility] [place] [facility] Jun 20, 2024 02:00 PM [facility] Aug 16, 2024 09:00 [facility] Social History: Smoking Status (Most current) and Tobacco Use (All prior to encounter date) This section includes the most current, and the historical, smoking and tobacco- related health factors from the [place] facility where the Encounter took place. Current Smoking Status This section includes the most current smoking, or tobacco-related health factor, from the [place] facility where the Encounter took place. Date/Time Current Smoking Status Comment [facility] Sep 14, 2023 10:00 AM VA-TOBACCO DOESNT USE WI 30 MIN WAKEUP [facility] Tobacco Use History This section includes a history of the smoking, or tobacco-related health factors, that were collected on or before the date of the Encounter. The data comes from the [place] facility where the Encounter took place. 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 [facility] [place] [facility] Sep 14, 2023 10:00 AM VA-TOBACCO USE MED NO [facility] [place] [facility] Sep 14, 2023 10:00 AM VA-TOBACCO USER EVERY DAY [facility] [place] [facility] Aug 02, 2022 01:11 PM VA-TOBACCO USE 30 YEARS OR MORE [facility] [place] [facility] Aug 02, 2022 01:11 PM VA-TOBACCO USE ADVICE [facility] [place] [facility] Aug 02, 2022 01:11 PM 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 [facility] [place] [facility] Aug 02, 2022 01:11 PM VA-TOBACCO USE MED NO [facility] [place] [facility] Aug 02, 2022 01:11 PM VA-TOBACCO USE WI 30 MIN OF WAKEUP [facility] [place] [facility] Aug 02, 2022 01:11 PM VA-TOBACCO USER EVERY DAY [facility] [place] [facility] Jul 28, 2021 11:21 AM VA-TOBACCO USE 30 YEARS OR MORE [facility] [place] [facility] Jul 28, 2021 11:21 AM VA-TOBACCO USE ADVICE [facility] [place] [facility] Jul 28, 2021 11:21 AM 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 [facility] [place] [facility] Jul 28, 2021 11:21 AM VA-TOBACCO USE MED NO [facility] [place] [facility] Jul 28, 2021 11:21 AM VA-TOBACCO USE WI 30 MIN OF WAKEUP [facility] [place] [facility] Jul 28, 2021 11:21 AM VA-TOBACCO USER EVERY DAY [facility] [place] [facility] Jun 04, 2020 01:59 PM VA-TOBACCO USE 30 YEARS OR MORE [facility] [place] [facility] Jun 04, 2020 01:59 PM VA-TOBACCO USE ADVICE [facility] [place] [facility] Jun 04, 2020 01:59 PM 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 Date/Time Encounter Note(s) Provider Source Feb 20, 2024 09:21 AM RN PROGRESS NOTE: LOCAL TITLE: CCC: CLINICAL TRIAGE STANDARD TITLE: RN PROGRESS NOTE DATE OF NOTE: FEB 20, 2024@09:21:27 ENTRY DATE: FEB 20, 2024@:21:27 AUTHOR: MANI MOLINA COSIGNER: URGENCY: STATUS: COMPLETED CCC: CLINICAL TRIAGE Has ADDENDA Patient Demographics Patient Name: KINJAL LAW Patient Primary [address]: [address] [place] [id number] Patient Primary Phone: [phone] Patient : 1950 Patient Age: 73 Call Back Number: [phone] Caller/Recipient Relation to Patient: Self Emergency Contact: BREANNA MICHAEL Triage Summary Conducted triage/discussed symptoms Utilized the Triage Tool: Yes Chief Complaint: Blood In Stool System WHEN: Now Nurse's Recommendation / WHEN: Now System WHERE: Emergency department Nurse's Recommendation / WHERE: ED Other WHEN/WHERE modifier reason: Distance from Hospital Patient Disposition Patient/Caregiver agrees to plan of care: Yes Other - Patient Where Disposition: See nursing summary Nursing Plan and Disposition Referred patient to higher level of care Instructed to go to Emergency Room (ER) Advised of Financial Disclaimer: Patient advised that recommendation for care provided during the call does not constitute an approval or authorization for payment by the [place] or its staff. Patient advised to report a community ED visit to the [facility] Office of Community Care at within 72 hours. Generated msg to PACT/Provider Provided guidance for worsening symptoms: *Caller/Patient* advised to call facilities [place] Clinical Contact Center or seek immediate medical attention for new or worsening symptoms Nurse Summary Nurse Summary: Pt called today saying for the past couple of days he has had blood and mucus in his stool. Pt says he had radiation about 1 year ago and has had some blood in his stool ever since. Pt says for the past few days when he strains to have a BM he develops some rectal bleeding. Pt says if he moves around a lot or passes gas he passes some blood. Pt says he's been told he probably has hemorrhoids but says he doesn't know for sure if he has any. Pt was triaged and informed of the triage recommendation to go to the local ED now. Pt says he will go to the ED but has things planned for today and tomorrow and will go on Tuesday. Pt was cautioned on delaying evaluation/treatment and was encouraged not to delay going to the ED. Pt was given the ED notification number. Alerting PACT Clinical Contact Center Codes Clinic/Location: V1 CWM PHONE CCC RN TXCC Triage Complete Triage Date: 02/20/2024, 09:10 AM Triage Note: Phone Triage 20 Feb 2024 13:07:36 +0000 [facility] Demographics 73 y/o Male Results CC: Blood In Stool Software suggested: Now Software suggested follow-up location: Emergency department Values and Measures Duration of CC: 2 Days Positive Responses HPI: hematochezia, more blood than stool HPI: hematochezia, within past 2 days MEDS: Coumadin, heparin, low molecular weight heparin, or other potent anticoagulant VS: BP not taken VS: pulse not taken Negative Responses Denies: HPI: anal injury Denies: HPI: chest pain, onset after onset the bleeding Denies: HPI: syncope Denies: HPI: vomiting Denies: PMH: Crohn's disease Denies: PMH: ulcerative colitis /es/ MANI MOLINA CALL CENTER REGISTERED NURSE Signed: 02/20/2024 09:21 Receipt Acknowledged By: 02/20/2024 09:39 /es/ CARLA KEENANN RN-BC REGISTERED NURSE 02/21/2024 10:20 /es/ BANDAR MORALES LPN Licensed Practical Nurse 02/20/2024 ADDENDUM STATUS: COMPLETED Called and encouraged him to get assessment performed prior to Tuesday when he also informed author that he was going to go to ED. [place] also [facility] for sooner assessment and author provided him with location of closest facility at [facility] [address] [place] [id number] Main number: [phone] states he may try to go to urgent care facility for assessment and recommendations. /subhash/ POPEYE BENEDICT BSN RN-BC REGISTERED NURSE Signed: 02/20/2024 09:52 MANI MOLINA [place] [facility]
--- OUTSIDE RECORDS SUMMARY | 2024-08-30 19:44 | XMS_ITS | Encounter Summary ---
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 Date/Time Encounter Type Encounter Description Reason Pro vider Source Mar 09, 2024 08:59 AM Outpatient Encounter PRIMARY CARE/MEDICINE IHE Encounter Template Text not used by [place] Plan of Treatment: Future Appointments (+ 6 [...] 20 appointments. The data comes from all [place] treatment facilities. Appointment Date/Time Appointment Type Appointme nt Facility Name Mar 14, 2024 10:00 AM AMBULATORY - [facility]ICINE [facility] [place] [facility] Mar 29, 2024 02:30 PM AMBULATORY - MEDICINE [facility] [place] [facility] Apr 17, 2024 02:30 PM AMBULATORY - MEDICINE [facility] [place] [facility] Apr 25, 2024 11:15 AM AMBULATORY - MEDICINE [facility] [place] [facility] Jun 11, 2024 01:00 PM AMBULATORY - NONE [facility] [place] [facility] Jun 20, 2024 02:00 PM [facility] Aug 16, 2024 09:00 AM AMBULATORY - MEDICINE [facility] Social History: Smoking Status (Most current) and Tobacco Use (All prior to encounter date) This section includes the most current, and the historical, smoking and tobacco- related health factors from the [place] facility where the Encounter took place. Current Smoking Status This section includes the most current smoking, or tobacco-related health factor, from the [place] facility where the Encounter took place. Date/Time Current Smoking Status Comment [facility] Sep 14, 2023 10:00 AM VA-TOBACCO USER EVERY DAY [place] [facility] [place] [facility] Tobacco Use History This section includes a history of the smoking, or tobacco-related health factors, that were collected on or before the date of the Encounter. The data comes from the [place] facility where the Encounter took place. 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 [facility] [place] [facility] Sep 14, 2023 10:00 AM VA-TOBACCO USE MED NO [facility] [place] [facility] Sep 14, 2023 10:00 AM VA-TOBACCO USER EVERY DAY [facility] [place] [facility] Aug 02, 2022 01:11 PM VA-TOBACCO USE 30 YEARS OR MORE [facility] [place] [facility] Aug 02, 2022 01:11 PM VA-TOBACCO USE ADVICE [facility] [place] [facility] Aug 02, 2022 01:11 PM VA-TOBACCO USE FLY FRAME TENDER NO [facility] [place] [facility] Aug 02, 2022 01:11 PM VA-TOBACCO USE MED NO [facility] [place] [facility] Aug 02, 2022 01:11 PM VA-TOBACCO USE WI 30 MIN OF WAKEUP [facility] [place] [facility] Aug 02, 2022 01:11 PM VA-TOBACCO USER EVERY DAY [facility] [place] [facility] Jul 28, 2021 11:21 AM VA-TOBACCO USE 30 YEARS OR MORE [facility] [place] [facility] Jul 28, 2021 11:21 AM VA-TOBACCO USE ADVICE [facility] [place] [facility] Jul 28, 2021 11:21 AM VA-TOBACCO USE FLY FRAME TENDER NO [facility] [place] [facility] Jul 28, 2021 11:21 AM VA-TOBACCO USE MED NO [facility] [place] [facility] Jul 28, 2021 11:21 AM VA-TOBACCO USE WI 30 MIN OF WAKEUP [facility] [place] [facility] Jul 28, 2021 11:21 AM VA-TOBACCO USER EVERY DAY [facility] [place] [facility] Jun 04, 2020 01:59 PM VA-TOBACCO USE 30 YEARS OR MORE [facility] [place] [facility] Jun 04, 2020 01:59 PM VA-TOBACCO USE ADVICE [facility] [place] [facility] Jun 04, 2020 01:59 PM VA-TOBACCO USE FLY FRAME TENDER NO [facility] [place] [facility] Jun 04, 2020 01:59 PM VA-TOBACCO USE MED NO [facility] [place] [facility] Jun 04, 2020 01:59 PM VA-TOBACCO USE WI 30 MIN OF WAKEUP [facility] [place] [facility] Jun 04, 2020 01:59 PM VA-TOBACCO USER EVERY DAY [facility] [place] [facility] Mar 30, 2016 10:35 AM CURRENT SMOKER smokes about 1 pack every 3 days for about 45 years [place] [facility] [place] [facility] Encounter Notes: All associated encounter notes This section contains the clinical notes associated to the Encounter. Date/Time Encounter Note(s) Provider Source Mar 09, 2024 08:59 AM PRIMARY CARE NOTE: LOCAL TITLE: WALK-IN NOTE PRIMARY CARE (T) STANDARD TITLE: PRIMARY CARE NOTE DATE OF NOTE: MAR 09, 2024@08:59 ENTRY DATE: MAR 09, 2024@09:00:02 AUTHOR: DAMON BOWMAN EXP COSIGNER: URGENCY: STATUS: COMPLETED <====Click to Start Advanced Medical Support [place] presents to the Primary Care clinic with the following request: [ ]Medication Renewal/Refill [ ]Consultation with Team RN [ X ]Symptoms [ ]Other The states they are: [ X ]Waiting [ ]Not Waiting Yes Walk in visit scheduled with PACT Nurse [ X ] At this encounter the [place]'s demographics were verified. [ X ] At this encounter the 's Insurance information was verified. [ X ] At this encounter the below scheduled visits for the were discussed and appointment reminder card was offered. 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
--- OUTSIDE RECORDS SUMMARY | 2024-08-30 19:44 | XMS_ITS | Encounter Summary ---
Author Name [facility] [facility] [place] [facility] [place] Address [address] [place] [address] Care Team Providers Care Strawhat Inspector And Packer Name Role Phone HOMARJD FIELD Primary Care [...] PART A May 15, 2015 PART A [id number] 00A KINJAL LAW SR PATIENT Selected Encounter This section includes the information on record at [place] for the Encounter. Date/Time Encounter Type Encounter Description Reason Pro vider Source Mar 07, 2024 09:50 AM Outpatient Encounter PRIMARY CARE/MEDICINE IHE Encounter Template Text not used by [place] Plan of Treatment: Future Appointments (+ 6 [...] 20 appointments. The data comes from all [place] treatment facilities. Appointment Date/Time Appointment Type Appointme nt Facility Name Mar 09, 2024 09:00 AM [facility]ORY - MEDICINE [facility] Mar 09, 2024 09:15 AM [facility] Mar 14, 2024 10:00 AM AMBULATORY - [...] 20, 2024 02:00 PM [facility] Aug 16, 2024 09:00 AM AM[facility]ULATORY - MEDICINE [facility] Social History: Smoking Status (Most current) and Tobacco Use (All prior to encounter date) This section includes the most current, and the historical, smoking and tobacco- related health factors from the [place] facility where the Encounter took place. Current Smoking Status This section includes the most current smoking, or tobacco-related health factor, from the [place] facility where the Encounter took place. Date/Time Current Smoking Status Comment [facility] Sep 14, 2023 10:00 AM VA-TOBACCO USER EVERY DAY [facility] Tobacco Use History This section includes a history of the smoking, or tobacco-related health factors, that were collected on or before the date of the Encounter. The data comes from the [place] facility where the Encounter took place. Date/Time Smoking Status/Tobac co Use Comment Facility Sep 14, 2023 10:00 AM VA-TOBACCO USE 30 YEARS OR MORE [facility] [place] [facility] Sep 14, 2023 10:00 AM VA-TOBACCO USE ADVICE [facility] [place] [facility] Sep 14, 2023 10:00 AM VA-TOBACCO USE WEB MARKETING MANAGER NO [facility] [place] [facility] Aug 02, 2022 01:11 PM VA-TOBACCO USE WEB MARKETING MANAGER NO [facility] [place] [facility] [...] Jul 28, 2021 11:21 AM VA-TOBACCO USE WEB MARKETING MANAGER NO [facility] [place] [facility] Jun 04, 2020 01:59 PM VA-TOBACCO USE WEB MARKETING MANAGER NO [facility] [place] [facility] Jun 04, 2020 01:59 PM VA-TOBACCO USE MED NO [facility] [place] [facility] Jun 04, 2020 01:59 PM VA-TOBACCO USE WI 30 MIN OF WAKEUP [facility] [place] [facility] Jun 04, 2020 01:59 PM VA-TOBACCO USER EVERY DAY [facility] Mar 30, 2016 10:35 AM CURRENT SMOKER smokes about 1 pack every 3 days for about 45 years [facility] Encounter Notes: All associated encounter notes This section contains the clinical notes associated to the Encounter. Date/Time Encounter Note(s) Provider Source Mar 07, 2024 12:05 PM ADDENDUM: LOCAL TITLE: Addendum STANDARD TITLE: ADDENDUM DATE OF NOTE: MAR 07, 2024@12:05:53 ENTRY DATE: MAR 07, 2024@12:05:54 AUTHOR: CHIDI LAMBERT COSIGNER: URGENCY: STATUS: COMPLETED I think the Honor should go directly to emergency room. He always already evaluated today by provider in urgent care and he was advised to go to be evaluated in emergency room. 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 STATED HE WAS SEEN IN [facility] [place], FOR SNOTTY/CLEAR LOOKING STOOL WITH SOME BLOOD. STATED URGENT CARE TOLD HIM TO GO TO THE EMERGENCY ROOM. STATED HE DIDN'T GO TO EMERGENCY ROOM BECAUSE HE KNEW HE HAD AN APPT WITH CWM/SO/PACT EIGHT PROVIDER THIS WEEK. 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 [place] /subhash/ LUI WOODY ADVANCED ERP MANAGER Signed: 03/07/2024 09:51 Receipt Acknowledged By: 03/07/2024 10:01 /es/ SHANI KEENAN RN-BC REGISTERED NURSE 03/07/2024 10:37 /es/ BANDAR MORALES LPN Licensed Practical Nurse 03/07/2024 12:05 /es/ CHIDI LAMBERT MD PRIMARY CARE PHYSICIAN 03/07/2024 ADDENDUM STATUS: COMPLETED Called Honor and he reports that he was seen in [place]. He reports that his bowels did move yesterday and that he is having difficulty with bowels/stomach that started over a week ago and low back pain that started last night. reports that he went to urgent care and was then advised to follow up with a provider or ED. reports that he has been noticing mucus and some blood in stool and discussed with the provider. Author encouraged to go to ED for assessment, due to their ability to perform prompt imaging and lab work assessments on Honor, especially if symptoms worsen or persist. is also aware of [facility] availability, but author did advise that if he presents to sick call clinic the provider bench machine operator may determine that he is in need of a higher level of care and may be sent to ED. Honor verbalized understanding of information provided by author. /subhash/ SHANI KEENAN RN-LISA REGISTERED NURSE Signed: 03/07/2024 10:09 Receipt Acknowledged By: * AWAITING SIGNATURE * LB SANCHEZ 03/07/2024 12:05 /es/ CHIDI LAMBERT MD PRIMARY CARE PHYSICIAN CHIDI LAMBERT [facility] Mar 07, 2024 10:01 AM ADDENDUM: LOCAL TITLE: Addendum STANDARD TITLE: ADDENDUM DATE OF NOTE: MAR 07, 2024@10:01:38 ENTRY DATE: MAR 07, 2024@10:01:39 AUTHOR: POPEYE BENEDICT COSIGNER: URGENCY: STATUS: COMPLETED Called and he reports that he was seen in [place]. He reports that his bowels did move yesterday and that he is having difficulty with bowels/stomach that started over a week ago and low back pain that started last night. Honor reports that he went to urgent care and was then advised to follow up with a provider or ED. reports that he has been noticing mucus and some blood in stool and discussed with the provider. Author encouraged to go to ED for assessment, due to their ability to perform prompt imaging and lab work assessments on , especially if symptoms worsen or persist. Honor is also aware of [facility] availability, but author did advise that if he presents to sick call clinic the provider bench machine operator may determine that he is in need of a higher level of care and may be sent to ED. Honor verbalized understanding of information provided by author. 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 STATED HE WAS SEEN IN [facility] [place], FOR SNOTTY/CLEAR LOOKING STOOL WITH SOME BLOOD. STATED URGENT CARE TOLD HIM TO GO TO THE EMERGENCY ROOM. STATED HE DIDN'T GO TO EMERGENCY ROOM BECAUSE HE KNEW HE HAD AN APPT WITH CWM/SO/PACT EIGHT PROVIDER THIS WEEK. 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 [place] /es/ LUI WOODY ADVANCED ERP MANAGER Signed: 03/07/2024 09:51 Receipt Acknowledged By: 03/07/2024 10:01 /subhash/ SHANI KEENAN RN-LISA REGISTERED NURSE 03/07/2024 10:37 /es/ BANDAR MORALES LPN Licensed Practical Nurse 03/07/2024 12:05 /subhash/ CHIDI LAMBERT MD PRIMARY CARE PHYSICIAN 03/07/2024 ADDENDUM STATUS: COMPLETED I think the should go directly to emergency room. He always already evaluated today by provider in urgent care and he was advised to go to be evaluated in emergency room. Please inform the Thank you /roxanna LAMBERT MD PRIMARY CARE PHYSICIAN Signed: 03/07/2024 12:06 Receipt Acknowledged By: 03/09/2024 10:32 /SHANI Wright RN-BC REGISTERED NURSE 03/09/2024 ADDENDUM STATUS: COMPLETED Honor had been previously advised by author and call center triage staff to go to ED for evaluation. has presented to [facility] this morning for evaluation. 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 STATED HE WAS SEEN IN [facility] [place], FOR SNOTTY/CLEAR LOOKING STOOL WITH SOME BLOOD. STATED URGENT CARE TOLD HIM TO GO TO THE EMERGENCY ROOM. STATED HE DIDN'T GO TO EMERGENCY ROOM BECAUSE HE KNEW HE HAD AN APPT WITH CWM/SO/PACT EIGHT PROVIDER THIS WEEK. 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 [place] /subhash/ LUI WOODY ADVANCED ERP MANAGER Signed: 03/07/2024 09:51 Receipt Acknowledged By: 03/07/2024 10:01 /subhash/ SHANI KEENAN RN-LISA REGISTERED NURSE 03/07/2024 10:37 /subhash/ BANDAR MROALES LPN Licensed Practical Nurse 03/07/2024 12:05 /subhash/ CHIDI LAMBERT MD PRIMARY CARE PHYSICIAN 03/07/2024 ADDENDUM STATUS: COMPLETED Called Honor and he reports that he was seen in [place]. He reports that his bowels did move yesterday and that he is having difficulty with bowels/stomach that started over a week ago and low back pain that started last night. reports that he went to urgent care and was then advised to follow up with a provider or ED. Honor reports that he has been noticing mucus and some blood in stool and discussed with the provider. Author encouraged Honor to go to ED for assessment, due to their ability to perform prompt imaging and lab work assessments on , especially if symptoms worsen or persist. Stephanie is also aware of [facility] availability, but author did advise that if he presents to sick call clinic the provider bench machine operator may determine that he is in need of a higher level of care and may be sent to ED. Honor verbalized understanding of information provided by author. /SHANI Wright RN-BC REGISTERED NURSE Signed: 03/07/2024 10:09 Receipt Acknowledged By: * AWAITING SIGNATURE * DANIEL,LB Valladares 03/07/2024 12:05 /subhash/ CHIDI LAMBERT MD PRIMARY CARE PHYSICIAN 03/07/2024 ADDENDUM STATUS: COMPLETED I think the should go directly to emergency room. He always already evaluated today by provider in urgent care and he was advised to go to be evaluated in emergency room. Please inform the Honor Thank you /roxanna LAMBERT MD PRIMARY CARE PHYSICIAN Signed: 03/07/2024 12:06 Receipt Acknowledged By: 03/09/2024 10:32 /SHANI Wright RN-BC REGISTERED NURSE 03/09/2024 ADDENDUM STATUS: COMPLETED Honor had been previously advised by author and call center triage staff to go to ED for evaluation. Stephanie has presented to [facility] this morning for evaluation. /SHANI Wright RN-BC REGISTERED NURSE Signed: 03/09/2024 10:33 LUI WOODY
--- OUTSIDE RECORDS SUMMARY | 2024-08-30 19:44 | XMS_ITS | Encounter Summary ---
Author Name [facility] [place] [facility] [place] Address [address] [place] [address] Care Team Providers Care Wooden Tank Erector Name Role Phone JD GRAF Primary Care [...] PART A May 15, 2015 PART A [id number] 00A KINJAL LAW SR PATIENT Selected Encounter This section includes the information on record at [place] for the Encounter. Date/Time Encounter Type Encounter Description Reason Provider Source Mar 09, 2024 09:15 AM OFFICE O/P EST MOD 30 MIN PRIMARY CARE/MEDICINE ICD-10-CM K92.1 JD Rizzo S[place] Encounter Template Text not used by [place] Assessments - Encounter Diagnoses This section includes the primary and secondary diagnoses documented for the Encounter. Date/Time Primary/Secondary Diagnosis Diagnosis Name Provider Source Mar 09, 2024 02:20 PM PRIMARY JD Rizzo [place] Mar 09, 2024 02:20 PM SECONDARY Abdominal distension (gaseous) JD GRAF [facility] [place] Mar 09, 2024 02:20 PM SECONDARY Benign neoplasm of colon, unspecified HOMARJD FILED Alfredo [place] Plan of Treatment: Future Appointments (+ 6 months) and Future Tests (+/- 45 days) The Plan of Treatment section includes future care activities for the patient from all [place] treatmentfacilities. This section includes future appointments and future orders which are active, pending or scheduled. Future Appointments This section includes appointments that were scheduled to occur 6 months from the date of the Encounter, up to a maximum of 20 appointments. The data comes from all [place] treatment facilities. Appointment Date/Time Appointment Type Appointme nt Facility Name Mar 14, 2024 10:00 AM AM[place]ORY [place] [facility] [place] [facility] Mar 29, 2024 02:30 PM [place] [facility] [place] [facility] Apr 17, 2024 02:30 PM AM[place]ORY [place] [facility] [place] [place] [facility] Apr 25, 2024 11:15 AM [place]ORY [place] [facility] [place] [place] [facility] Jun 11, 2024 01:00 PM AMBULATORY - NONE [place] [facility] [place] [facility] Jun 20, 2024 02:00 PM [facility]IC[facility] Aug 16, 2024 09:00 AM [facility]ORY - MEDICINE [facility] Vital Signs: All taken on the encounter date This section contains inpatient and outpatient Vital Signs collected on the date of the Encounter. Date/Time Temperature Pulse Blood Pressure Respiratory Rate SP02 Pain Height Weight Body Mass Index Source Mar 09, 2024 09:09 AM 97.8 82 142/84 17 95 0 [facility] [place] Social History: Smoking Status (Most current) and Tobacco Use (All prior to encounter date) This section includes the most current, and the historical, smoking and tobacco- related health factors from the [place] facility where the Encounter took place. Current Smoking Status This section includes the most current smoking, or tobacco-related health factor, from the [place] facility where the Encounter took place. Date/Time Current Smoking Status Comment Davey vinson Feb 01, 2019 08:32 AM [place]-TOBACCO USE DOCUMENTATION SPEC NO [place] Tobacco Use History This section includes a history of the smoking, or tobacco-related health factors, that were collected on or before the date of the Encounter. The data comes from the [place] facility where the Encounter took place. Date/Time Smoking Status/Tobacco Use Comment F acility Feb 01, 2019 08:32 AM VA-TOBACCO USE 30 YEARS OR MORE [place] Feb 01, 2019 08:32 AM VA-TOBACCO USE ADVICE [place] Feb 01, 2019 08:32 AM VA-TOBACCO USE DOCUMENTATION SPEC NO [place] Feb 01, 2019 08:32 AM VA-TOBACCO USE MED NO [place] Feb 01, 2019 08:32 AM VA-TOBACCO USER EVERY DAY [place] Nov 14, 2017 09:03 AM VA-TOBACCO DOESNT USE WI 30 MIN WAKEUP [place] Nov 14, 2017 09:03 AM VA-TOBACCO USE 30 YEARS OR MORE [place] Nov 14, 2017 09:03 AM VA-TOBACCO USE ADVICE [place] Nov 14, 2017 09:03 AM VA-TOBACCO USE DOCUMENTATION SPEC NO [place] Nov 14, 2017 09:03 AM VA-TOBACCO USE MED NO [place] Nov 14, 2017 09:03 AM VA-TOBACCO USER EVERY DAY [place] May 16, 2017 10:14 AM CURRENT SMOKER ~3 cigarettes per day [place] May 16, 2017 10:14 AM V1-PT NOT INTEREST ED IN QUIT TOBACCO USE [place] Nov 01, 2016 09:00 AM CURRENT SMOKER [facility] Nov 01, 2016 09:00 AM V1-PT NOT INTEREST ED IN QUIT TOBACCO USE [place] May 03, 2016 01:05 PM V1-PT DECLINES REF TO TOBACCO [facility]ESS [facility] May 03, 2016 01:05 PM V1-PT DECLINES TOB ACCO CESSATION [facility] May 03, 2016 01:05 PM V1-PT THINKING ABO UT QUIT TOBACCO USE [place] Feb 19, 2014 08:45 AM V1-PT DECLINES REF TO TOBACCO CESS [facility] Feb 19, 2014 08:45 AM V1-PT DECLINES TOB ACCO CESSATION [facility] Feb 19, 2014 08:45 AM V1-PT THINKING ABO UT QUIT TOBACCO USE [place] Jun 04, 2013 08:39 AM CURRENT SMOKER smokes a pack of cigaretts a week. [place] Jun 04, 2013 08:39 AM V1-PT DECLINES REF TO TOBACCO CESS [facility] Jun 04, 2013 08:39 AM V1-PT DECLINES TOB ACCO CESSATION [facility] Jun 04, 2013 08:39 AM V1-PT THINKING ABO UT QUIT TOBACCO USE [place] Aug 28, 2012 09:51 AM V1-PT DECLINES REF TO TOBACCO CESS [facility] Aug 28, 2012 09:51 AM V1-PT DECLINES TOB ACCO CESSATION [facility] Aug 28, 2012 09:51 AM V1-PT READY TO CARIDAD T TOBACCO USE [place] January 03, 2012 08:39 AM CURRENT SMOKER [facility] January 03, 2012 08:39 AM V1-PT DECLINES REF TO TOBACCO CESS [facility] January 03, 2012 08:39 AM V1-PT DECLINES TOB ACCO CESSATION [facility] January 03, 2012 08:39 AM V1-PT THINKING ABO UT QUIT TOBACCO USE [place] Jul 22, 2011 08:19 AM V1-PT DECLINES REF TO TOBACCO CESS [facility] Jul 22, 2011 08:19 AM V1-PT DECLINES TOB ACCO CESSATION [facility] Jul 22, 2011 08:19 AM V1-PT NOT INTEREST ED IN QUIT TOBACCO USE [place] Jan 25, 2011 08:38 AM CURRENT SMOKER [facility] Jan 25, 2011 08:38 AM V1-PT DECLINES REF TO TOBACCO CESS [facility] Jan 25, 2011 08:38 AM V1-PT DECLINES TOB ACCO CESSATION [facility] Jan 25, 2011 08:38 AM V1-PT THINKING ABO UT QUIT TOBACCO USE [place] Sep 03, 2009 12:43 PM CURRENT SMOKER advise stop [place] Sep 03, 2009 12:43 PM V1-PT DECLINES REF TO TOBACCO CESS [facility] Sep 03, 2009 12:43 PM V1-PT DECLINES TOB ACCO CESSATION [facility] Sep 03, 2009 12:43 PM V1-PT NOT INTEREST ED IN QUIT TOBACCO USE [place] Jun 28, 2008 11:28 AM V1-PT DECLINES REF TO TOBACCO CESS [facility] Jun 28, 2008 11:28 AM V1-PT DECLINES TOB ACCO CESSATION [facility] Jun 28, 2008 11:28 AM V1-PT NOT INTEREST ED IN QUIT TOBACCO USE [place] Jun 28, 2008 09:31 AM CURRENT SMOKER 5-6 cigarettes/day [place] Mar 18, 2005 09:38 AM CURRENT SMOKER [facility] December 28, 2001 08:58 AM CURRENT SMOKER Patient states he has smoked from age 16-present, 1/2 pk cigarettes daily. [place] Encounter Notes: All associated encounter notes This section contains the clinical notes associated to the Encounter. Date/Time Encounter Note(s) Provider Source Mar 09, 2024 09:05 AM NURSE PRACTITIONER NOTE: LOCAL TITLE: NURSE PRACTIONER/SICK VISIT STANDARD TITLE: NURSE PRACTITIONER NOTE DATE OF NOTE: MAR 09, 2024@09:05 ENTRY DATE: MAR 09, 2024@09:05:40 AUTHOR: JD GRAF COSIGNER: URGENCY: STATUS: COMPLETED SICK CALL VISIT KINJAL HOLA LAW is a 73 y/o BLACK OR MALE [place] who presents to [facility] sick call with c/o Abdominal bloating, intermittent jelly stools, rectal bleeding. The rectal bleeding and change in stool texture is intermittent, last noted about two weeks ago. The rectal bleeding is described as bright red, on both toilet paper and in stool. Has been intermittent for years. Unsure if he has hemorrhoids. Denies abdominal pain, N/V. Appetite is down. Reports occasional hard stools followed by looser stools. On apixaban. On PPI. Hx colon polyps. Hx prostate CA with radiation. Last colo was 2019, + adeno removed. + smoker. No family hx colon CA Labs 10/17/23 stable. Records reviewed, has had intermittent rectal bleeding for several years. [place] PCP: ======= CHIDI LAMBERT VITAL SIGNS: Blood Pressure: 142/84 (03/09/2024 09:09) Pain: 0 (03/09/2024 09:09) Patient Height: 70 in [177.8 cm] (06/05/2020 14:06) Patient Weight: 213 lb [96.62 kg] (04/29/2023 12:07) Pulse: 82 (03/09/2024 09:09) Respiration: 17 (03/09/2024 09:09) Temperature: 97.8 F [36.6 C] (03/09/2024 09:09) REVIEW OF SYSTEMS: see HPI PHYSICAL EXAMINATION: General: Well-appearing in no obvious distress. Mental Status: Alert and oriented x4. Lungs: CTAB. Normal chest excursion. Eupneic respirations. CV: Heart tones S1, S2. RRR. No M/G/R. Pacemaker palpated left upper chest. GI: + BS x 4. Abdomen is soft and nontender, distended. No palpable mass or organomegaly. Refuses rectal exam. Psych: Normal mood and affect. Normal judgment. Cooperative with exam, follows commands. ASSESSMENT/PLAN: rectal bleeding, bloating - see HPI. Refuses rectal exam today. Initially refused colonoscopy but does eventually agree to this referral. GI referral also made. Will not hold apixaban for now. MEDICATIONS reviewed with [place] FOLLOW UP: Return to clinic 3-5 days if no improvement in symptoms. UPCOMING APPOINTMENTS: No data available /es/ ZIGGY AMBRIZ CERTIFIED NURSE PRACTITIONER Signed: 03/09/2024 14:20 JD GRAF [place]
--- OUTSIDE RECORDS SUMMARY | 2024-08-30 19:44 | XMS_ITS ---
Author Name [facility] [place] Address [address] [place] [address] Care Team Providers Care Head Machinist Name Role Phone JD GRAF Primary Care [...] PART A May 15, 2015 PART A [id number] [id number] KINJAL LAW SR PATIENT Selected Encounter This section includes the information on record at [place] for the Encounter. Date/Time Encounter Type Encounter Description Reason Pro vider Source Mar 02, 2024 06:01 AM Outpatient Encounter ADMIN PAT ACTIVTIES (MASNONCT) [...] Appointment Type Appointme nt Facility Name Mar 07, 2024 09:00 AM [facility] Mar 09, 2024 09:00 AM [facility]ICINE [facility] Mar 09, 2024 09:15 AM AMB[facility]ATORY - MEDICINE [facility] Mar 14, 2024 10:00 AM [facility] [place] [facility] Mar 29, 2024 02:30 PM AMBULATORY - MEDICINE [facility] [place] [facility] Apr 17, 2024 02:30 PM AMBULATORY - MEDICINE [facility] [place] [facility] Apr 25, 2024 11:15 AM AMBULATORY - MEDICINE [facility] [place] [facility] Jun 11, 2024 01:00 PM AMBULATORY - NONE [place] [facility] [place] [facility] Jun 20, 2024 02:00 PM AMBULATORY - MEDICINE [facility] Aug 16, 2024 09:00 AM [facility] Social History: Smoking Status (Most [...] took place. Date/Time Current Smoking Status Comment [facility] Sep 14, 2023 10:00 AM VA-TOBACCO DOESNT USE WI 30 MIN [facility]UP [facility] Tobacco Use History This section includes a history of the smoking, or tobacco-related health factors, that were collected on or before the date of the Encounter. The data comes from the [place] facility where the Encounter took place. Date/Time Smoking Status/Tobac co Use Comment Facility Sep 14, 2023 10:00 AM VA-TOBACCO USE 30 YEARS OR MORE [facility] [place] [facility] Sep 14, 2023 10:00 AM VA-TOBACCO USE ADVICE [place] [facility] Sep 14, 2023 10:00 AM VA-TOBACCO USE BLADDER CHANGER NO [place] [facility] [place] [facility] Sep 14, 2023 10:00 AM VA-TOBACCO USE MED NO [facility] [place] [facility] Sep 14, 2023 10:00 AM VA-TOBACCO USER EVERY DAY [facility] [place] [facility] Aug 02, 2022 01:11 PM VA-TOBACCO USE 30 YEARS OR MORE [facility] [place] [facility] Aug 02, 2022 01:11 PM VA-TOBACCO USE ADVICE [facility] [place] [facility] Aug 02, 2022 01:11 PM VA-TOBACCO USE BLADDER CHANGER NO [facility] [place] [facility] Aug 02, 2022 01:11 PM VA-TOBACCO USE MED NO [facility] [place] [facility] Aug 02, 2022 01:11 PM VA-TOBACCO USE WI 30 MIN OF WAKEUP [facility] [place] [facility] Aug 02, 2022 01:11 PM VA-TOBACCO USER EVERY DAY [facility] [place] [facility] Jul 28, 2021 11:21 AM VA-TOBACCO USE 30 YEARS OR MORE [facility] [place] [facility] Jul 28, 2021 11:21 AM VA-TOBACCO USE ADVICE [facility] [place] [facility] Jul 28, 2021 11:21 AM VA-TOBACCO USE BLADDER CHANGER NO [facility] [place] [facility] Jul 28, 2021 11:21 AM VA-TOBACCO USE MED NO [facility] [place] [facility] Jul 28, 2021 11:21 AM VA-TOBACCO USE WI 30 MIN OF WAKEUP [facility] [place] [facility] Jul 28, 2021 11:21 AM VA-TOBACCO USER EVERY DAY [facility] [place] [facility] Jun 04, 2020 01:59 PM VA-TOBACCO USE 30 YEARS OR MORE [facility] [place] [facility] Jun 04, 2020 01:59 PM VA-TOBACCO USE ADVICE [facility] [place] [facility] Jun 04, 2020 01:59 PM VA-TOBACCO USE BLADDER CHANGER NO [facility] [place] [facility] Jun 04, 2020 01:59 PM VA-TOBACCO USE MED NO [facility] [place] [facility] Jun 04, 2020 01:59 PM VA-TOBACCO USE WI 30 MIN OF WAKEUP [facility] Jun 04, 2020 01:59 PM VA-TOBACCO USER EVERY DAY [facility] Mar 30, 2016 10:35 AM CURRENT SMOKER smokes about 1 pack every 3 days for about 45 years [facility] Encounter Notes: All associated encounter notes This section contains the clinical notes associated to the Encounter. Date/Time Encounter Note(s) Provider Source Mar 02, 2024 06:02 AM ADMINISTRATIVE NOT E: LOCAL TITLE: CCC: SCHEDULING ADMINISTRATION STANDARD TITLE: ADMINISTRATIVE NOTE DATE OF NOTE: MAR 02, 2024@06:02 ENTRY DATE: MAR 02, 2024@06:02:26 AUTHOR: SUDEEP NANCE EXP COSIGNER: URGENCY: STATUS: COMPLETED Verify Patient Demographics Successfully verified patient demographics Medication support request: Medication renewal SILDENAFIL TAB 100MG /es/ SUDEEP NANCE VISN2 [facility] LEAD AMSA Signed: 03/02/2024 06:02 Receipt Acknowledged By: 03/07/2024 14:42 /es/ CHIDI LAMBERT MD PRIMARY CARE PHYSICIAN 03/02/2024 15:50 /es/ CARLA KEENANN RN-BC REGISTERED NURSE SUDEEP NANCE [facility]
--- OUTSIDE RECORDS SUMMARY | 2024-08-30 19:44 | XMS_ITS | Encounter Summary ---
Author Name [facility] [place] Organization [facility] [place] Address [address] [place] [address] Care Team Providers Care Counselor Supervisor Name Role Phone HOMAR JANETTE Primary Care Provider Unavailabl e Insurance Providers: [...] PART A May 15, 2015 PART A [id number] [id number] KINJAL LAW SR PATIENT Selected Encounter This section includes the information on record at [place] for the Encounter. Date/Time Encounter Type Encounter Description Reason Provider Source Mar 09, 2024 09:00 AM OFF/OP EST DECEMBER X REQ PHY/QHP PRIMARY CARE/MEDICINE ICD-10-CM K92.1 LB Rios IHSari Encounter Template Text not used by [place] Assessments - Encounter Diagnoses This section includes the primary and secondary diagnoses documented for the Encounter. Date/Time Primary/Secondary Diagnosis Diagnosis Name Provider Source Mar 09, 2024 01:50 PM PRIMARY LANDON RiosIC K [facility] Plan of Treatment: Future Appointments (+ 6 months) and Future Tests (+/- 45 days) The Plan of Treatment section includes future care activities for the patient from all [place] treatmentfacilities. This section includes future appointments and future orders which are active, pending or scheduled. Future Appointments This section includes appointments that were scheduled to occur 6 months from the date of the Encounter, up to a maximum of 20 appointments. The data comes from all [place] treatment facilities. Appointment Date/Time Appointment Type Appointme nt Facility Name Mar 14, 2024 10:00 AM AMBULATORY - MEDICINE [facility] [place] [facility] Mar 29, 2024 02:30 PM AMBULATORY - MEDICINE [facility] [place] [facility] Apr 17, 2024 02:30 PM AMBULATORY - MEDICINE [facility] [place] [facility] Apr 25, 2024 11:15 AM AMBULATORY - MEDICINE [facility] [place] [facility] Jun 11, 2024 01:00 PM AMBULATORY - NONE [facility] [place] [facility] Jun 20, 2024 02:00 PM [facility]ICINE [facility] [place] Aug 16, 2024 09:00 AM AMBULATORY - MEDICINE [facility] Vital Signs: All taken on the encounter date This section contains inpatient and outpatient Vital Signs collected on the date of the Encounter. Date/Time Temperature Pulse Blood Pressure Respiratory Rate SP02 Pain Height Weight Body Mass Index Source Mar 09, 2024 09:09 AM 97.8 82 142/84 17 95 0 [facility] Social History: Smoking Status (Most current) and Tobacco Use (All prior to encounter date) This section includes the most current, and the historical, smoking and tobacco- related health factors from the [place] facility where the Encounter took place. Current Smoking Status This section includes the most current smoking, or tobacco-related health factor, from the [place] facility where the Encounter took place. Date/Time Current Smoking Status Comment Davey vinson Feb 01, 2019 08:32 AM VA-TOBACCO USE MED NO [facility] Tobacco Use History This section includes a history of the smoking, or tobacco-related health factors, that were collected on or before the date of the Encounter. The data comes from the [place] facility where the Encounter took place. 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 [facility] Feb 01, 2019 08:32 AM VA-TOBACCO USE MED NO [facility] Feb 01, 2019 08:32 AM VA-TOBACCO USER EVERY DAY [facility] Nov 14, 2017 09:03 AM VA-TOBACCO DOESNT USE WI 30 MIN WAKEUP [facility] Nov 14, 2017 09:03 AM VA-TOBACCO USE 30 YEARS OR MORE [facility] Nov 14, 2017 09:03 AM VA-TOBACCO USE ADVICE [facility] Nov 14, 2017 09:03 AM VA-TOBACCO USE ENGINEER THIRD ASSISTANT NO [facility] Nov 14, 2017 09:03 AM VA-TOBACCO USE MED NO [facility] Nov 14, 2017 09:03 AM VA-TOBACCO USER EVERY DAY [facility] May 16, 2017 10:14 AM CURRENT SMOKER ~3 cigarettes per day [facility] May 16, 2017 10:14 AM V1-PT NOT INTEREST ED IN QUIT TOBACCO USE [place] Nov 01, 2016 09:00 AM CURRENT SMOKER [facility] Nov 01, 2016 09:00 AM V1-PT NOT INTEREST ED IN QUIT TOBACCO USE [place] May 03, 2016 01:05 PM V1-PT DECLINES REF TO TOBACCO CESS [facility] May 03, 2016 01:05 PM V1-PT DECLINES TOB ACCO CESSATION [facility] May 03, 2016 01:05 PM V1-PT THINKING ABO UT QUIT TOBACCO USE [place] Feb 19, 2014 08:45 AM V1-PT DECLINES REF TO TOBACCO CESS [facility] Feb 19, 2014 08:45 AM V1-PT DECLINES TOB ACCO CESSATION [facility] Feb 19, 2014 08:45 AM V1-PT THINKING ABO UT QUIT TOBACCO USE [facility] Jun 04, 2013 08:39 AM CURRENT SMOKER smokes a pack of cigaretts a week. [facility] Jun 04, 2013 08:39 AM V1-PT DECLINES REF TO TOBACCO CESS [facility] Jun 04, 2013 08:39 AM V1-PT DECLINES TOB ACCO CESSATION [facility] Jun 04, 2013 08:39 AM V1-PT THINKING ABO UT QUIT TOBACCO USE [facility] Aug 28, 2012 09:51 AM V1-PT DECLINES REF TO TOBACCO CESS [facility] Aug 28, 2012 09:51 AM V1-PT DECLINES TOB ACCO CESSATION [facility] Aug 28, 2012 09:51 AM V1-PT READY TO CARIDAD T TOBACCO USE [facility] January 03, 2012 08:39 AM CURRENT SMOKER [facility] January 03, 2012 08:39 AM V1-PT DECLINES REF TO TOBACCO CESS [facility] January 03, 2012 08:39 AM V1-PT DECLINES TOB ACCO CESSATION [facility] January 03, 2012 08:39 AM V1-PT THINKING ABO UT QUIT TOBACCO USE [facility] Jul 22, 2011 08:19 AM V1-PT DECLINES REF TO TOBACCO CESS [facility] Jul 22, 2011 08:19 AM V1-PT DECLINES TOB ACCO CESSATION [facility] Jul 22, 2011 08:19 AM V1-PT NOT INTEREST ED IN QUIT TOBACCO USE [place] Jan 25, 2011 08:38 AM CURRENT SMOKER JASIEL [facility] Jan 25, 2011 08:38 AM V1-PT DECLINES REF TO TOBACCO CESS [facility] Jan 25, 2011 08:38 AM V1-PT DECLINES TOB ACCO CESSATION [facility] Jan 25, 2011 08:38 AM V1-PT THINKING ABO UT QUIT TOBACCO USE [facility] Sep 03, 2009 12:43 PM CURRENT SMOKER advise stop [facility] Sep 03, 2009 12:43 PM V1-PT DECLINES REF TO TOBACCO CESS [facility] Sep 03, 2009 12:43 PM V1-PT DECLINES TOB ACCO CESSATION [facility] Sep 03, 2009 12:43 PM V1-PT NOT INTEREST ED IN QUIT TOBACCO USE [facility] Jun 28, 2008 11:28 AM V1-PT DECLINES REF TO TOBACCO CESS [facility] Jun 28, 2008 11:28 AM V1-PT DECLINES TOB ACCO CESSATION [facility] Jun 28, 2008 11:28 AM V1-PT NOT INTEREST ED IN QUIT TOBACCO USE [facility] Jun 28, 2008 09:31 AM CURRENT SMOKER 5-6 cigarettes/day [facility] Mar 18, 2005 09:38 AM [facility] December 28, 2001 08:58 AM CURRENT SMOKER Patient states he has smoked from age 16-present, 1/2 pk cigarettes daily. [facility] Encounter Notes: All associated encounter notes This section contains the clinical notes associated to the Encounter. Date/Time Encounter Note(s) Provider Source Mar 09, 2024 09:10 AM PRIMARY CARE NOTE: LOCAL TITLE: WALK-IN NOTE PRIMARY CARE (T) STANDARD TITLE: PRIMARY CARE NOTE DATE OF NOTE: MAR 09, 2024@09:10 ENTRY DATE: MAR 09, 2024@09:10:12 AUTHOR: DANIEL,LB K EXP COSIGNER: URGENCY: STATUS: COMPLETED Data: 73year old MALE [place] reports to Primary Care clinic for Walk-In visit. [place]'s PCP is CHIDI LAMBERT Today Vet walks in to clinic with complaint of intermittent rectal bleeding and episodes of mucus in stool Last recorded Vital Signs are: Temperature:97.8 F [36.6 C] (03/09/2024 09:09) Pulse:82 (03/09/2024 09:09) Blood Pressure:142/84 (03/09/2024 09:09) Respiration:17 (03/09/2024 09:09) Pain:0 (03/09/2024 09:09) Vet reports current allergies are: Remote Allergy Data No Remote Allergy/ADR Data available for this patient Current Medications from Active Med list include: Active Outpatient Medications (including Supplies): Active Outpatient Medications Status = 1) ALLOPURINOL 300MG TAB TAKE ONE TABLET BY MOUTH ONCE ACTIVE DAILY FOR GOUT 2) AMLODIPINE BESYLATE 10MG TAB TAKE ONE TABLET BY MOUTH ACTIVE ONCE DAILY FOR BLOOD PRESSURE/HEART, DO NOT TAKE WITH GRAPEFRUIT JUICE 3) APIXABAN 5MG TAB TAKE ONE TABLET BY MOUTH TWICE DAILY ACTIVE 4) METOPROLOL SUCCINATE 50MG SA TAB TAKE ONE TABLET BY ACTIVE MOUTH ONCE DAILY FOR BLOOD PRESSURE/HEART 5) OXYBUTYNIN CHLORIDE 10MG SA TAB TAKE ONE TABLET BY ACTIVE (S) MOUTH ONCE DAILY FOR BLADDER INSTABILITY 6) PANTOPRAZOLE NA 20MG EC TAB TAKE ONE TABLET BY MOUTH ACTIVE (S) EVERY MORNING 30 MINUTES BEFORE BREAKFAST 7) PRAVASTATIN NA 40MG TAB TAKE ONE TABLET BY MOUTH ONCE ACTIVE DAILY FOR CHOLESTEROL 8) SILDENAFIL CITRATE 100MG TAB TAKE ONE TABLET BY MOUTH ACTIVE ONCE DAILY NEEDED TAKE 1 HOUR PRIOR TO SEXUAL ACTIVITY 9) SODIUM FLUORIDE 1.1% TOOTHPASTE BRUSH SMALL AMOUNT TO ACTIVE TEETH TWICE DAILY FOR TOOTH DECAY PREVENTION Action: reports being seen at urgent care on February 26 for snotty clear stool States he has been having intermittent blood in stool for over a year. States he has not seen any blood or mucus since being seen in urgent care Reports feeling bloated. Affects appetite Denies nausea or vomiting Denies abdominal cramp Denies pain in abdomen intermittent hard stool causing him to strain. States stool can start of had then comes very soft. Does not know when last colonoscopy was but states he had polyps Denies colon cancer or family history States his doctor says its hemorrhoids. States when he sees the blood it's on the stool and toilet paper. Red in color referred to Janette [facility]nard [facility] for evaluation. Reminders Assess Statin Use - Lipids (CVD/DM) DUE NOW PTSD Screening Sep 15 Medication Reconciliation DUE NOW Td / Tdap Immunization Jun 19 COVID-19 Immunization DUE NOW PAVE Foot Check DUE NOW (Optional) Whole Health Documentation DUE NOW /subhash/ LB SANCHEZ RN PRIMARY CARE RN Signed: 03/09/2024 13:50 LB SANCHEZ [facility]
--- OUTSIDE RECORDS SUMMARY | 2024-08-30 19:44 | XMS_ITS ---
Author Name [facility] [place] Organization [facility] [place] Address [address] [place] [address] Care Team Providers Care Manager Background Name Role Phone JD GRAF Primary Care [...] PART A May 15, 2015 PART A [id number] KINJAL LAW SR PATIENT Selected Encounter This section includes the information on record at [place] for the Encounter. Date/Time Encounter Type Encounter Description Reason Pro vider Source Mar 02, 2024 04:33 PM Outpatient Encounter ADMIN PAT ACTIVTIES (MASNONCT) IHE Encounter Template Text not used by [place] Plan of Treatment: Future Appointments (+ 6 [...] 20 appointments. The data comes from all [place] treatment facilities. Appointment Date/Time Appointment Type Appointme nt Facility Name Mar 07, 2024 09:00 AM AMBULATORY - MEDICINE [facility] Mar 09, 2024 09:00 AM AMBULATORY - MEDICINE [facility] Mar 09, 2024 09:15 AM AMBULATORY - MEDICINE [facility] Mar 14, 2024 10:00 AM AMBULATORY - MEDICINE [facility] [place] [facility] Mar 29, 2024 02:30 PM AMBULATORY - MEDICINE [facility] [place] [place] [facility] Apr 17, 2024 02:30 PM AMBULATORY - MEDICINE [facility] [place] [facility] Apr 25, 2024 11:15 AM AMBULATORY - MEDICINE [facility] [place] [facility] Jun 11, 2024 01:00 PM AMBULATORY - NONE [facility] [place] [facility] Jun 20, 2024 02:00 PM AMBULATORY - MEDICINE [facility] Aug 16, 2024 09:00 AM [facility] Social History: Smoking Status (Most current) and Tobacco Use (All prior to encounter date) This section includes the most current, and the historical, smoking and tobacco- related health factors from the [place] facility where the Encounter took place. Current Smoking Status This section includes the most current smoking, or tobacco-related health factor, from the [place] facility where the Encounter took place. Date/Time Current Smoking Status Comment [facility] Sep 14, 2023 10:00 AM VA-TOBACCO USER EVERY DAY [place] [facility] Tobacco Use History This section includes a history of the smoking, or tobacco-related health factors, that were collected on or before the date of the Encounter. The data comes from the [place] facility where the Encounter took place. Date/Time Smoking Status/Tobac co Use Comment Facility Sep 14, 2023 10:00 AM VA-TOBACCO USE 30 YEARS OR MORE [facility] [place] [facility] Sep 14, 2023 10:00 AM VA-TOBACCO USE ADVICE [place] [facility] Sep 14, 2023 10:00 AM VA-TOBACCO USE MOTOR TESTER NO [place] [facility] [place] [facility] Sep 14, 2023 10:00 AM VA-TOBACCO USE MED NO [facility] [place] [facility] Sep 14, 2023 10:00 AM VA-TOBACCO USER EVERY DAY [facility] [place] [facility] Aug 02, 2022 01:11 PM VA-TOBACCO USE 30 YEARS OR MORE [facility] [place] [facility] Aug 02, 2022 01:11 PM VA-TOBACCO USE ADVICE [facility] [place] [facility] Aug 02, 2022 01:11 PM VA-TOBACCO USE MOTOR TESTER NO [facility] [place] [facility] Aug 02, 2022 01:11 PM VA-TOBACCO USE MED NO [facility] [place] [facility] Aug 02, 2022 01:11 PM VA-TOBACCO USE WI 30 MIN OF WAKEUP [facility] [place] [facility] Aug 02, 2022 01:11 PM VA-TOBACCO USER EVERY DAY [facility] [place] [facility] Jul 28, 2021 11:21 AM VA-TOBACCO USE 30 YEARS OR MORE [facility] [place] [facility] Jul 28, 2021 11:21 AM VA-TOBACCO USE ADVICE [facility] [place] [facility] Jul 28, 2021 11:21 AM VA-TOBACCO USE MOTOR TESTER NO [facility] [place] [facility] Jul 28, 2021 11:21 AM VA-TOBACCO USE MED NO [facility] [place] [facility] Jul 28, 2021 11:21 AM VA-TOBACCO USE WI 30 MIN OF WAKEUP [facility] [place] [facility] Jul 28, 2021 11:21 AM VA-TOBACCO USER EVERY DAY [facility] [place] [facility] Jun 04, 2020 01:59 PM VA-TOBACCO USE 30 YEARS OR MORE [facility] [place] [facility] Jun 04, 2020 01:59 PM VA-TOBACCO USE ADVICE [facility] [place] [facility] Jun 04, 2020 01:59 PM VA-TOBACCO USE MOTOR TESTER NO [facility] [place] [facility] Jun 04, 2020 01:59 PM VA-TOBACCO USE MED NO [facility] [place] [facility] Jun 04, 2020 01:59 PM VA-TOBACCO USE WI 30 MIN OF WAKEUP [facility] Jun 04, 2020 01:59 PM VA-TOBACCO USER EVERY DAY [facility] Mar 30, 2016 10:35 AM CURRENT SMOKER smokes about 1 pack every 3 days for about 45 years [facility] Encounter Notes: All associated encounter notes This section contains the clinical notes associated to the Encounter. Date/Time Encounter Note(s) Provider Source Mar 02, 2024 04:33 PM PHARMACY NOTE: LOCAL TITLE: V1 PHARMACY CUSTOMER CARE MEDICATION RENEWAL STANDARD TITLE: PHARMACY NOTE DATE OF NOTE: MAR 02, 2024@16:33 ENTRY DATE: MAR 02, 2024@16:33:39 AUTHOR: SE AMES EXP COSIGNER: URGENCY: STATUS: COMPLETED Date: Feb Division: [facility] referred by Pharmacy Call Center for medication renewal: Non-controlled/maintenan ce medication Medications requested: [id number] AMLODIPINE BESYLATE 10MG TAB Provider: EMANUEL MATTHEWS Defer to primary care provider To be mailed . Please review and renew if appropriate. *This note was generated by [facility] Pharmacy Customer Care. If you have any questions or need assistance, do not contact this author. Please refer all questions to your local, on-site pharmacy departments. /subhash/ Marco AMES CPhT Reviewer Sales, [place]/Pharmacy Customer Care Signed: 03/02/2024 16:34 Receipt Acknowledged By: 03/05/2024 07:31 /subhash/ CARLA KEENANN RN-BC REGISTERED NURSE 03/07/2024 15:46 /subhash/ CHIDI LAMBERT MD PRIMARY CARE PHYSICIAN [facility]
--- OUTSIDE RECORDS SUMMARY | 2024-08-30 19:45 | XMS_ITS ---
Author Name [facility] [facility] [place] Address [address] [place] [address] Care Team Providers Care Delivery Truck Driver Name Role Phone HOMAR JD Primary Care [...] PART A May 15, 2015 PART A [id number] KINJAL LAW SR PATIENT Selected Encounter This section includes the information on record at [place] for the Encounter. Date/Time Encounter Type Encounter Description Reason Pro vider Source Dec 13, 2023 12:00 PM Outpatient Encounter COMMUNITY CARE CONSULT [...] 20 appointments. The data comes from all [place] treatment [facility]. Appointment Date/Time Appointment Type Appointme nt Facility Name December 20, 2023 09:45 AM AMBULATORY [place] MEDICINE [place] [facility] [place] [place] [facility] Feb 24, 2024 09:00 AM AMBULATORY [place] MEDICINE [place] [facility] [place] [facility] Mar 07, 2024 09:00 AM [facility] MEDICINE [facility] Mar 09, 2024 09:00 AM [facility]ATORY - MEDICINE [facility] Mar 09, 2024 09:15 AM [facility]ATORY - MEDICINE [facility] Mar 14, 2024 10:00 AM [facility] Mar 29, 2024 02:30 PM [facility]ORY - MEDICINE [facility] Apr 17, 2024 02:30 PM [facility] [place] [facility] Apr 25, 2024 11:15 AM AMBULATORY - MEDICINE [facility] Jun 11, 2024 01:00 PM AMBULATORY - NONE [facility] Active, Pending, and Scheduled Orders This section includes a listing of several types of active, pending, and scheduled orders, including clinic medications orders, diagnostic test orders, procedure orders and consult orders; where the start date of the order is 45 days before the date of the Encounter or 45 days after the date of theEncounter. The data comes from all [facility]. Test Date/Time Test Type Test Details Facility Name December 22, 2023 09:11 AM Consult Order COMMUNITY CARE-DENTAL GENERAL Cons Golf Range Attendant's Choice [facility] Social History: Smoking Status (Most current) and Tobacco Use (All prior to encounter date) This section includes the most current, and the historical, smoking and tobacco- related health factors from the [place] facility where the Encounter took place. Current Smoking Status This section includes the most current smoking, or tobacco-related health factor, from the [place] facility where the Encounter took place. Date/Time Current Smoking Status Halie vinson Sep 14, 2023 10:00 AM [place]-TOBACCO DOESNT USE WI 30 MIN WAKEUP [facility] Tobacco Use History This section includes a history of the smoking, or tobacco-related health factors, that were collected on or before the date of the Encounter. The data comes from the [place] facility where the Encounter took place. 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 [facility] [place] [facility] Sep 14, 2023 10:00 AM VA-TOBACCO USE MED NO [facility] [place] [facility] Sep 14, 2023 10:00 AM VA-TOBACCO USER EVERY DAY [facility] [place] [facility] Aug 02, 2022 01:11 PM VA-TOBACCO USE 30 YEARS OR MORE [facility] [place] [facility] Aug 02, 2022 01:11 PM VA-TOBACCO USE ADVICE [facility] [place] [facility] Aug 02, 2022 01:11 PM VA-TOBACCO USE RETAIL SALES MANAGER NO [facility] [place] [facility] Aug 02, 2022 01:11 PM VA-TOBACCO USE MED NO [facility] [place] [facility] Aug 02, 2022 01:11 PM VA-TOBACCO USE WI 30 MIN OF WAKEUP [facility] [place] [facility] Aug 02, 2022 01:11 PM VA-TOBACCO USER EVERY DAY [facility] [place] [facility] Jul 28, 2021 11:21 AM VA-TOBACCO USE 30 YEARS OR MORE [facility] [place] [facility] Jul 28, 2021 11:21 AM VA-TOBACCO USE ADVICE [facility] [place] [facility] Jul 28, 2021 11:21 AM VA-TOBACCO USE RETAIL SALES 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 NO [facility] [place] [facility] Jul 28, 2021 11:21 AM VA-TOBACCO USE MED NO [facility] [place] [facility] Jul 28, 2021 11:21 AM VA-TOBACCO USE [place] 30 MIN OF WAKEUP [facility] [place] [facility] Jul 28, 2021 11:21 AM VA-TOBACCO USER EVERY [facility] Jun 04, 2020 01:59 PM VA-TOBACCO USE 30 YEARS OR MORE [place] [facility] [place] [facility] Jun 04, 2020 01:59 PM VA-TOBACCO USE ADVICE [facility] Jun 04, 2020 01:59 PM VA-TOBACCO USE RETAIL SALES MANAGER NO [facility] Jun 04, 2020 01:59 PM VA-TOBACCO USE MED NO [facility] Jun 04, 2020 01:59 PM VA-TOBACCO USE [place] 30 MIN OF WAKEUP [facility] Jun 04, 2020 01:59 PM VA-TOBACCO USER EVERY DAY [facility] Mar 30, 2016 10:35 AM CURRENT SMOKER smokes about 1 pack every 3 days for about 45 years [facility] Encounter Notes: All associated encounter notes This section contains the clinical notes associated to the Encounter. Date/Time Encounter Note(s) Provider Source Dec 13, 2023 12:00 PM NONVA CONSULT: LOCAL TITLE: COMMUNITY CARE-CONSULT RESULT NOTE STANDARD TITLE: NONVA CONSULT DATE OF NOTE: DEC 13, 2023@12:00 ENTRY DATE: DECEMBER 26, 2023@12:58:54 AUTHOR: STEPHANIE MCGEE EXP COSIGNER: URGENCY: STATUS: COMPLETED VistA Imaging - Scanned Document SCANNED DOCUMENT SIGNATURE NOT REQUIRED Electronically Filed: 12/26/2023 by: STEPHANIE MCGEE MEDICAL PERINATAL NURSE STEPHANIE MCGEE [facility]
--- OUTSIDE RECORDS SUMMARY | 2024-08-30 19:45 | XMS_ITS ---
Author Name [facility] [place] Organization [facility] [place] Address [address] [place] [address] Care Team Providers Care Sales Account Specialist Name Role Phone HOMAR JD Primary Care [...] PART A May 15, 2015 PART A [id number] KINJAL LAW SR PATIENT Selected Encounter This section includes the information on record at [place] for the Encounter. Date/Time Encounter Type Encounter Description Reason Pro vider Source Oct 10, 2023 12:00 AM Outpatient Encounter COMMUNITY CARE CONSULT [...] 20 appointments. The data comes from all [place] treatment facilities. Appointment Date/Time Appointment Type Appointme nt Facility Name Oct 14, 2023 10:45 AM AMBULATORY - NONE [place] [place] [facility] Oct 31, 2023 11:30 AM AMBULATORY - MEDICINE [place] [facility] December 20, 2023 09:45 AM [facility] [facility] Feb 24, 2024 09:00 AM [facility] [place] [place] [facility] Mar 07, 2024 09:00 AM AM[facility]ULATORY - MEDICINE [facility] Mar 09, 2024 09:00 AM AMBULATORY - MEDICINE [facility] Mar 09, 2024 09:15 AM AMBULATORY - MEDICINE [facility] Mar 14, 2024 10:00 AM [facility] [facility] Mar 29, 2024 02:30 PM [facility] [place] [facility] [place] [facility] Lab Results: +/- 30 days of the encounter This section includes the Chemistry and Hematology Lab Results on record with [place] for the patient. Radiology Reports and Pathology Reports are provided separately, in subsequent sections. Lab Results This section contains the Chemistry/Hematology Results that were resulted 30 days before or 30 daysafter the date of the Encounter. Date/Time Source Result Type Result - Unit Interpretation Reference Range Comment Oct 17, 2023 11:12 AM [facility] HEMOGLOBIN A1C PANEL Specimen Type: BLOOD Comment: Values obtained from A1C measurements can vary. For atypical A1C assays, a reported value of 7.0 could actually be between 6.72 and 7.28 if measured by a reference method. A reported value of 9.0 could actually be between 8.73 and 9.27. Ref: http://www.ngs p.org/CAPdata. asp Ordering Provider: EMANUEL MATTHEWS Report Released Date/Time: Sep 07, 2023 09:48 AM Reporting Lab: [address] [address] Performing Lab: [address] [address] HEMOGLOBIN A1C 6.1 H 4.0-5.6 Oct 17, 2023 11:12 AM [facility] TSH Specimen Type: SERUM No comment entered. Ordering Provider: EMANUEL MATTHEWS Report Released Date/Time: Sep 07, 2023 09:48 AM Reporting Lab: [facility] [address] [facility] [address] Performing [facility]: [facility] [address] TSH 1.81 u[IU]/mL 0.35-5.00 Oct 17, 2023 11:12 AM [facility] LIPID PANEL FASTING Specimen Type: SERUM No comment entered. Ordering Provider: EMANUEL MATTHEWS Report Released Date/Time: Sep 07, 2023 09:48 AM Reporting Lab: [address] [address] Performing Lab: [facility] [address] CHOLESTEROL 161 mg/dL TRIGLYCERIDE 205 mg/dL H 0-150 LDL calculated 84 mg/dL 0-129 CHOL/HDL 4.5 HDL CHOLESTEROL 36 mg/dL L 40-60 Oct 17, 2023 11:12 AM [facility] LIVER FUNCTION Specimen Type: SERUM No comment entered. Ordering Provider: EMANUEL MATTHEWS Report Released Date/Time: Sep 07, 2023 09:48 AM Reporting Lab: [address] [address] Performing Lab: [address] [address] PROTEIN,TOTAL 6.4 g/dL 6.0-8.3 ALBUMIN 3.5 g/dL 3.5-5.0 ALKALINE PHOSPHATASE 69 U/L 40-150 AST 14 U/L 5-34 ALT 17 U/L BILIRUBIN, TOTAL 0.4 mg/dL 0.2-1.2 Oct 17, 2023 11:12 AM [facility] BASIC METABOLIC PANEL (fasting) Specimen Type: SERUM No comment entered. Ordering Provider: EMANUEL MATTHEWS Report Released Date/Time: Sep 07, 2023 09:48 AM Reporting [facility]: [facility] [address] [facility] [facility] [address] Performing [facility]: [facility] [address] [address] UREA NITROGEN 26 mg/dL H 7-25 GLUCOSE 84 mg/dL 65-100 SODIUM 139 mmol/L 135-145 POTASSIUM 4.8 mmol/L 3.5-5.0 CHLORIDE 109 mmol/L 100-110 CO2 23 meq/L 20-30 CREATININE, Serum 1.68 mg/dL H 0.50-1.40 eGFR(CKD-EPI 2020) 42 mL/min L >60 Oct 17, 2023 11:12 AM [facility] PSA Specimen Type: SERUM No comment entered. Ordering Provider: EMANUEL MATTHEWS Report Released Date/Time: Sep 07, 2023 09:48 AM Reporting Lab: [address] [address] Performing [facility]: [facility] [address] [address] PSA 0.29 ng/mL 0.00-4.00 Oct 17, 2023 11:12 AM [facility] CBC AND DIFF (AUTO) Specimen Type: BLOOD No comment entered. Ordering Provider: EMANUEL MATTHEWS Report Released Date/Time: Sep 07, 2023 09:48 AM Reporting Lab: [address] [address] Performing Lab: [facility] [address] [address] WBC 4.23 10*3/uL L 4.50-11.00 RBC 4.19 10*6/uL L 4.23-5.66 HGB 12.5 g/dL L 12.8-17 HCT 38.3 L 39.2-50.4 MCV 91.4 fL 82-99 MCHC 32.6 g/dL 30.8-35.1 PLT 167 10*3/uL 140-360 RDW-CV 16.7 H 12.0-16.0 [place], Abs 0.61 10*3/uL 0.30-1.10 MCH 29.8 pg 26.2-32.6 Neut % 57.3 43.7-75.8 Lymph % 20.3 14.0-42.3 [place] % 14.4 H 5.1-13.7 Eos % 7.1 H 0.4-6.8 Baso % 0.7 0.1-2.0 Neut, Abs 2.42 10*3/uL 2.20-7.60 Lymph, Abs 0.86 10*3/uL L 1.00-3.20 Eos, Abs 0.30 10*3/uL 0.03-0.44 Baso, Abs 0.03 10*3/uL 0.01-0.13 Immature Gran % 0.2 0.0-0.7 Immature Gran, Abs 0.01 10*3/uL 0.00-0.06 Social History: Smoking Status (Most current) and Tobacco Use (All prior to encounter date) This section includes the most current, and the historical, smoking and tobacco- related health factors from the [place] facility where the Encounter took place. Current Smoking Status This section includes the most current smoking, or tobacco-related health factor, from the [place] facility where the Encounter took place. Date/Time Current Smoking Status Comment [facility] Sep 14, 2023 10:00 AM VA-TOBACCO USER EVERY DAY [facility] Tobacco Use History This section includes a history of the smoking, or tobacco-related health factors, that were collected on or before the date of the Encounter. The data comes from the [place] facility where the Encounter took place. 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 NO [facility] [place] [facility] Sep 14, 2023 10:00 AM VA-TOBACCO USE MED NO [place] [facility] [place] [facility] Sep 14, 2023 10:00 AM VA-TOBACCO USER EVERY DAY [place] [facility] [place] [facility] Aug 02, 2022 01:11 PM VA-TOBACCO USE 30 YEARS OR MORE [facility] [place] [facility] Aug 02, 2022 01:11 PM VA-TOBACCO USE ADVICE [facility] [place] [facility] Aug 02, 2022 01:11 PM VA-TOBACCO USE HAND SCRAPER NO [facility] [place] [facility] Aug 02, 2022 01:11 PM VA-TOBACCO USE MED NO [facility] [place] [facility] Aug 02, 2022 01:11 PM VA-TOBACCO USE [place] 30 MIN OF WAKEUP [facility] [place] [facility] Aug 02, 2022 01:11 PM VA-TOBACCO USER EVERY DAY [facility] [place] [facility] Jul 28, 2021 11:21 AM VA-TOBACCO USE 30 YEARS OR MORE [facility] [place] [facility] Jul 28, 2021 11:21 AM VA-TOBACCO USE ADVICE [facility] [place] [facility] Jul 28, 2021 11:21 AM VA-TOBACCO USE HAND SCRAPER NO [facility] [place] [facility] Jul 28, 2021 11:21 AM VA-TOBACCO USE MED NO [facility] [place] [facility] Jul 28, 2021 11:21 AM VA-TOBACCO USE [place] 30 MIN OF WAKEUP [facility] [place] [facility] Jul 28, 2021 11:21 AM VA-TOBACCO USER EVERY DAY [facility] [place] [facility] Jun 04, 2020 01:59 PM VA-TOBACCO USE 30 YEARS OR MORE [facility] [place] [facility] Jun 04, 2020 01:59 PM VA-TOBACCO USE ADVICE [facility] [place] [place] [facility] Jun 04, 2020 01:59 PM VA-TOBACCO USE HAND SCRAPER NO [facility] [place] [facility] Jun 04, 2020 01:59 PM VA-TOBACCO USE MED NO [facility] [facility] Jun 04, 2020 01:59 PM VA-TOBACCO USE [place] 30 MIN OF WAKEUP [facility] [place] [facility] Jun 04, 2020 01:59 PM VA-TOBACCO USER EVERY DAY [facility] [place] [facility] Mar 30, 2016 10:35 AM CURRENT SMOKER smokes about 1 pack every 3 days for about 45 years [place] [facility] Radiology Reports: +/- 30 days of the encounter Radiology Reports For cases when an order for radiology services may have been completed prior to the date of the Encounter, the report list includes the Radiology Reports that were completed up to 30 days before dateof the Encounter. For cases when an order for radiology services may have been completed after the date of the Encounter, the report list also includes the Radiology Reports that were completed up to30 days after date of the Encounter. The data comes from all [place] treatment facilities. Date/Time Radiology Report Provider Source Sep 14, 2023 09:[address] PULMONARY NODULES W/O CONTRAST: LAWKINJAL [id number] [id number] M Exm Date: SEP 14, 2023@09:21 Req Phys: EMANUEL MATTHEWS Loc: CWM/SO/PACT 4 (Req'g Loc) Img Loc: [place]/CT Service: Unknown (Case [id number] COMPLETE) CT THORAX W/O CONT (CT Detailed) CPT:68654 Reason for Study: f/u cat scan in 20+pack year smoker (Case [id number] COMPLETE) CT ABDOMEN W/O CONT (CT Detailed) CPT:08759 Clinical History: 1. Multifocal cystic lesions in the liver, enlarged compared to 11/11/2016. 2. The previously described sclerotic lesion within the T3 vertebral body is unchanged, likely benign. 3. Mild cardiomegaly. 4. No new or suspicious pulmonary nodule. Report Status: Verified Date Reported: SEP 14, 2023 Date Verified: SEP 14, 2023 Step Down Specialist E-Sig:/ES/LEONILA HOGUE JR Report: Study: Noncontrast CT scan of the chest. Comparison: CT scan of the chest from November 11, 2016 and August 31, 2022. TECHNIQUE: Contiguous axial [address] imaging is performed from the lung apices through the lung bases without the administration of intravenous contrast as per standard department protocol. Subsequently, sagittal and coronal reformats were generated. The lack of intravenous contrast inherently limits the evaluation of hilar structures, vascular structures, and abnormal enhancement patterns. Lower than standard dose was utilized limiting sensitivity for fine parenchymal detail. Dose Parameters: CTDI(vol): 13.8 mGy. DLP: 667.8 mGy*cm. Findings: Chest: Lungs: No acute pulmonary process identified. Curvilinear parenchymal scarring stable at the right lung base. Bibasilar bronchiectatic changes again seen. Small amount of mucus debris adjacent to the jacques. The tracheobronchial tree is otherwise unremarkable No pneumothorax. No new concerning pulmonary nodule or mass is identified. Pleural: Mild left lung base pleural thickening unchanged with no pleural effusion identified. Given findings, follow-up pulmonary imaging should only be as clinically indicated. Mediastinum/hilum/lymph nodes: Normal. No mediastinal lymphadenopathy by size criteria. No axillary lymphadenopathy by size criteria. Heart and pericardium: Stable cardiomegaly. No pleural effusion identified. Vessels: Atherosclerotic changes of the aorta and coronary arteries. Normal caliber thoracic aorta. Chest wall and lower neck: Normal. Included thyroid is normal. Upper abdomen: Stable simple appearing cyst of varying sizes scattered throughout the liver that do not appear significantly changed on this noncontrast examination. 2 interpolar simple cyst in the right kidney. Otherwise, the visualized abdominal structures appear normal. Skeletal: Normal age-related degenerative changes. The previously described sclerotic lesion within the T3 vertebral body is unchanged, likely benign. Impression: No significant interval change or new abnormality, as described above. Primary Diagnostic Code: No immediate attention required Primary Interpreting Staff: LEONILA HOGUE JR, Radiologist (Step Down Specialist) /LEONILA TIJERINA JR [facility] Encounter Notes: All associated encounter notes This section contains the clinical notes associated to the Encounter. Date/Time Encounter Note(s) Provider Source Oct 10, 2023 12:00 AM NONVA CONSULT: LOCAL TITLE: COMMUNITY CARE-CONSULT RESULT NOTE STANDARD TITLE: NONVA CONSULT DATE OF NOTE: OCT 10, 2023 ENTRY DATE: APR 04, 2024@12:02:37 AUTHOR: RAMOS HERMAN EXP COSIGNER: URGENCY: STATUS: COMPLETED VistA Imaging - Scanned Document SCANNED DOCUMENT SIGNATURE NOT REQUIRED Electronically Filed: 04/04/2024 by: RAMOS HERMAN LICENSED PRACTICAL NURSE RAMOS HERMAN [facility]
--- OUTSIDE RECORDS SUMMARY | 2024-08-30 19:45 | XMS_ITS | Encounter Summary ---
Author Name [facility] [place] [facility] [place] Organization [place] Address [address] [place] [address] Care Team Providers Care Clinical Staff Pharmacist Name Role Phone HOMAR JD Primary Care [...] PART A May 15, 2015 PART A [id number] 00A KINJAL LAW SR PATIENT Selected Encounter This section includes the information on record at [place] for the Encounter. Date/Time Encounter Type Encounter Description Reason Pro vider Source Feb 09, 2024 08:37 AM Outpatient Encounter PRIMARY CARE/MEDICINE IHE Encounter Template Text not used by [place] Plan of Treatment: Future Appointments (+ 6 [...] 20 appointments. The data comes from all [place] treatment facilities. Appointment Date/Time Appointment Type Appointme nt Facility Name Feb 24, 2024 09:00 AM AMBULATORY - MEDICINE [place] [facility] [place] [facility] Mar 07, 2024 09:00 [facility] Mar 09, 2024 09:00 [facility] Mar 09, 2024 09:15 AM [facility] [place] [place] Mar 14, 2024 10:00 AM AMBULATORY - MEDICINE [place] [facility] [place] [facility] Mar 29, 2024 02:30 PM AMBULATORY - MEDICINE [place] [facility] [place] [facility] Apr 17, 2024 02:30 PM AMBULATORY - MEDICINE [facility] [place] [facility] Apr 25, 2024 11:15 AM AMBULATORY - MEDICINE [facility] [place] [facility] Jun 11, 2024 01:00 PM AMBULATORY - NONE [facility] [place] [facility] Jun 20, 2024 02:00 PM AMBULATORY - MEDICINE [facility] Social History: Smoking Status (Most current) and Tobacco Use (All prior to encounter date) This section includes the most current, and the historical, smoking and tobacco- related health factors from the [place] facility where the Encounter took place. Current Smoking Status This section includes the most current smoking, or tobacco-related health factor, from the [place] facility where the Encounter took place. Date/Time Current Smoking Status Comment [facility] it Sep 14, 2023 10:00 AM VA-TOBACCO DOESNT USE WI 30 MIN WAKEUP [facility] Tobacco Use History This section includes a history of the smoking, or tobacco-related health factors, that were collected on or before the date of the Encounter. The data comes from the [place] facility where the Encounter took place. Date/Time Smoking Status/Tobac co Use Comment Facility Sep 14, 2023 10:00 AM VA-TOBACCO USE 30 YEARS OR MORE [facility] [place] [facility] Sep 14, 2023 10:00 AM VA-TOBACCO USE ADVICE [place] [facility] Sep 14, 2023 10:00 AM VA-TOBACCO USE SUPERVISOR HOT DIP PLATING NO [place] [facility] Sep 14, 2023 10:00 AM VA-TOBACCO USE MED NO [facility] [place] [facility] Sep 14, 2023 10:00 AM VA-TOBACCO USER EVERY DAY [facility] [place] [facility] Aug 02, 2022 01:11 PM VA-TOBACCO USE 30 YEARS OR MORE [facility] [place] [facility] Aug 02, 2022 01:11 PM VA-TOBACCO USE ADVICE [facility] [place] [facility] Aug 02, 2022 01:11 PM VA-TOBACCO USE SUPERVISOR HOT DIP PLATING NO [facility] [place] [facility] Aug 02, 2022 01:11 PM VA-TOBACCO USE MED NO [facility] [place] [facility] Aug 02, 2022 01:11 PM VA-TOBACCO USE WI 30 MIN OF WAKEUP [facility] [place] [facility] Aug 02, 2022 01:11 PM VA-TOBACCO USER EVERY DAY [facility] [place] [facility] Jul 28, 2021 11:21 AM VA-TOBACCO USE 30 YEARS OR MORE [facility] [place] [facility] Jul 28, 2021 11:21 AM VA-TOBACCO USE ADVICE [facility] [place] [facility] Jul 28, 2021 11:21 AM VA-TOBACCO USE SUPERVISOR HOT DIP PLATING NO [facility] [place] [facility] Jul 28, 2021 11:21 AM VA-TOBACCO USE MED NO [facility] [place] [facility] Jul 28, 2021 11:21 AM VA-TOBACCO USE WI 30 MIN OF WAKEUP [facility] [place] [facility] Jul 28, 2021 11:21 AM VA-TOBACCO USER EVERY DAY [facility] [place] [facility] Jun 04, 2020 01:59 PM VA-TOBACCO USE 30 YEARS OR MORE [facility] [place] [facility] Jun 04, 2020 01:59 PM VA-TOBACCO USE ADVICE [facility] [place] [facility] Jun 04, 2020 01:59 PM VA-TOBACCO USE SUPERVISOR HOT DIP PLATING NO [place] [facility] [place] [facility] Jun 04, 2020 01:59 PM VA-TOBACCO USE MED NO [place] [facility] [place] [facility] Jun 04, 2020 01:59 PM VA-TOBACCO USE WI 30 MIN OF WAKEUP [place] [facility] [place] [facility] Jun 04, 2020 01:59 PM VA-TOBACCO USER EVERY DAY [place] [facility] [place] [facility] Mar 30, 2016 10:35 AM CURRENT SMOKER smokes about 1 pack every 3 days for about 45 years [place] [facility]TR [place] [facility] Encounter Notes: All associated encounter notes This section contains the clinical notes associated to the Encounter. Date/Time Encounter Note(s) Provider Source Feb 09, 2024 08:39 AM ADMINISTRATIVE NOT E: LOCAL TITLE: ADMINISTRATIVE NOTE STANDARD TITLE: ADMINISTRATIVE NOTE DATE OF NOTE: FEB 09, 2024@08:39 ENTRY DATE: FEB 09, 2024@08:39:44 AUTHOR: POPEYE BENEDICT EXP COSIGNER: URGENCY: STATUS: COMPLETED Received fax request from [facility] urology clinic with request for consult for prostate cancer for follow up with dr navarro on 02/24/24 at 9 am placed urology consult as requested and held for provider review. /subhash/ CARLA KEENANN RN-BC REGISTERED NURSE Signed: 02/09/2024 08:40 POPEYE BENEDICT
--- OUTSIDE RECORDS SUMMARY | 2024-08-30 19:45 | XMS_ITS | Encounter Summary ---
Author Name [facility] [place] [facility] [place] Organization [place] Address [address] [place] [address] Care Team Providers Care Electrical Systems Design Engineer Name Role Phone HOMARJD FIELD Primary Care [...] PART A May 15, 2015 PART A [id number] 00A KINJAL LAW SR PATIENT Selected Encounter This section includes the information on record at [place] for the Encounter. Date/Time Encounter Type Encounter Description Reason Pro vider Source January 13, 2024 03:34 PM Outpatient Encounter PRIMARY CARE/MEDICINE IHE Encounter Template Text not used by [place] Plan of Treatment: Future Appointments (+ 6 [...] 20 appointments. The data comes from all [place] treatment facilities. Appointment Date/Time Appointment Type Appointme nt Facility Name Feb 24, 2024 09:00 AM AMBULATORY - MEDICINE [place] [facility] Mar 07, 2024 09:00 AM AMBULATORY - MEDICINE [facility] Mar 09, 2024 09:00 AM [facility] Mar 09, 2024 09:15 AM [facility] Mar 14, 2024 10:00 AM AMBULATORY - MEDICINE [place] [facility] Mar 29, 2024 02:30 PM AMBULATORY - MEDICINE [place] [facility] Apr 17, 2024 02:30 PM AMBULATORY - MEDICINE [place] [facility] [place] [facility] Apr 25, 2024 11:15 AM AMBULATORY - MEDICINE [place] [facility] [place] [facility] Jun 11, 2024 01:00 PM AMBULATORY - NONE [place] [facility] Jun 20, 2024 02:00 PM [facility] Active, Pending, and Scheduled Orders This section includes a listing of several types of active, pending, and scheduled orders, including clinic medications orders, diagnostic test orders, procedure orders and consult orders; where the start date of the order is 45 days before the date of the Encounter or 45 days after the date of theEncounter. The data comes from all [facility]. Test Date/Time Test Type Test Details Facility Name December 22, 2023 09:11 AM Consult Order COMMUNITY CARE-DENTAL GENERAL Cons Cloth [employer] [facility] Social History: Smoking Status (Most current) and Tobacco Use (All prior to encounter date) This section includes the most current, and the historical, smoking and tobacco- related health factors from the [place] facility where the Encounter took place. Current Smoking Status This section includes the most current smoking, or tobacco-related health factor, from the [place] facility where the Encounter took place. Date/Time Current Smoking Status Comment [facility] Sep 14, 2023 10:00 AM VA-TOBACCO USER EVERY DAY [facility] Tobacco Use History This section includes a history of the smoking, or tobacco-related health factors, that were collected on or before the date of the Encounter. The data comes from the [facility] where the Encounter took place. Date/Time Smoking Status/Tobac co Use Comment Facility Sep 14, 2023 10:00 AM VA-TOBACCO USE 30 YEARS OR MORE [facility] [place] [facility] Sep 14, 2023 10:00 AM VA-TOBACCO USE ADVICE [facility] [place] [facility] Sep 14, 2023 10:00 AM VA-TOBACCO USE RATINGS ANALYST NO [facility] [place] [facility] Sep 14, 2023 10:00 AM VA-TOBACCO USE MED NO [facility] [place] [facility] Sep 14, 2023 10:00 AM VA-TOBACCO USER EVERY DAY [facility] [place] [facility] Aug 02, 2022 01:11 PM VA-TOBACCO USE 30 YEARS OR MORE [facility] [place] [facility] Aug 02, 2022 01:11 PM VA-TOBACCO USE ADVICE [facility] [place] [facility] Aug 02, 2022 01:11 PM VA-TOBACCO USE RATINGS ANALYST NO [place] [facility] [place] [facility] Aug 02, 2022 01:11 PM VA-TOBACCO USE MED NO [place] [facility] [place] [facility] Aug 02, 2022 01:11 PM VA-TOBACCO USE WI 30 MIN OF WAKEUP [facility] [place] [facility] Aug 02, 2022 01:11 PM VA-TOBACCO USER EVERY DAY [facility] [place] [facility] Jul 28, 2021 11:21 AM VA-TOBACCO USE 30 YEARS OR MORE [facility] [place] [facility] Jul 28, 2021 11:21 AM VA-TOBACCO USE ADVICE [place] [facility] [place] [facility] Jul 28, 2021 11:21 AM VA-TOBACCO USE RATINGS ANALYST NO [place] [facility] [place] [facility] Jul 28, 2021 11:21 AM VA-TOBACCO USE MED NO [place] [facility] [place] [facility] Jul 28, 2021 11:21 AM VA-TOBACCO USE WI 30 MIN OF WAKEUP [facility] [place] [facility] Jul 28, 2021 11:21 AM VA-TOBACCO USER EVERY DAY [facility] [place] [facility] Jun 04, 2020 01:59 PM VA-TOBACCO USE 30 YEARS OR MORE [place] [facility] [place] [facility] Jun 04, 2020 01:59 PM VA-TOBACCO USE ADVICE [place] [facility] Jun 04, 2020 01:59 PM VA-TOBACCO USE RATINGS ANALYST NO [place] [facility] Jun 04, 2020 01:59 PM VA-TOBACCO USE MED NO [place] [facility] [place] [facility] Jun 04, 2020 01:59 PM VA-TOBACCO USE WI 30 MIN OF WAKEUP [place] [facility] [place] [facility] Jun 04, 2020 01:59 PM VA-TOBACCO USER EVERY DAY [place] [facility] [place] [facility] Mar 30, 2016 10:35 AM CURRENT SMOKER smokes about 1 pack every 3 days for about 45 years [facility] Encounter Notes: All associated encounter notes This section contains the clinical notes associated to the Encounter. Date/Time Encounter Note(s) Provider Source January 13, 2024 03:34 PM ADMINISTRATIVE NOT E: LOCAL TITLE: ADMINISTRATIVE NOTE STANDARD TITLE: ADMINISTRATIVE NOTE DATE OF NOTE: JANUARY 13, 2024@15:34 ENTRY DATE: JANUARY 13, 2024@15:34:11 AUTHOR: SAILAJA WOODY COSIGNER: URGENCY: STATUS: COMPLETED THIS [facility] CALLED TO REMIND OF F2F APPT. WITH CWM/SO/PACT EIGHT PROIVDER ON 01/20/2024 AT 11:30AM FOR ANNUAL NO LABS. NO ANSWER, LEFT MESSAGE FOR . /subhash/ LUI WOODY ADVANCED CHIEF COMPLIANCE OFFICER Signed: 01/13/2024 15:43 LUI WOODY [place]
--- OUTSIDE RECORDS SUMMARY | 2024-08-30 19:45 | XMS_ITS | Encounter Summary ---
Author Name [facility] [place] [facility] [place] Organization [place] Address [address] [place] [address] Care Team Providers Care Casting Repairer Name Role Phone HOMAR JD Primary Care [...] PART A May 15, 2015 PART A [id number] 00A KINJAL LAW SR PATIENT Selected Encounter This section includes the information on record at [place] for the Encounter. Date/Time Encounter Type Encounter Description Reason Pro vider Source January 13, 2024 12:00 PM Outpatient Encounter COMMUNITY CARE [...] 20 appointments. The data comes from all [place] treatment [facility]. Appointment Date/Time Appointment Type Appointme nt Facility Name Feb 24, 2024 09:00 AM AMBULATORY - MEDICINE [place] [facility] Mar 07, 2024 09:00 AM AM[place]ORY - [place]ICINE [place] [place] Mar 09, 2024 09:00 AM AMBULATORY - [place]ICINE [place] [place] Mar 09, 2024 09:15 AM AMBUL[facility]ORY - [place]ICINE [facility] [place] Mar 14, 2024 10:00 AM AMBULATORY - MEDICINE [place] [facility] Mar 29, 2024 02:30 PM AMBULATORY - MEDICINE [place] [facility] Apr 17, 2024 02:30 PM AMBULATORY - MEDICINE [place] [facility] Apr 25, 2024 11:15 AM AMBULATORY - MEDICINE [place] [facility] Jun 11, 2024 01:00 PM AMBULATORY - NONE [place] [facility] Jun 20, 2024 02:00 PM [facility] Active, Pending, and Scheduled Orders This section includes a listing of several types of active, pending, and scheduled orders, including clinic medications orders, diagnostic test orders, procedure orders and consult orders; where the start date of the order is 45 days before the date of the Encounter or 45 days after the date of theEncounter. The data comes from all [facility]. Test Date/Time Test Type Test Details Facility Name December 22, 2023 09:11 AM Consult Order COMMUNITY CARE-DENTAL GENERAL Cons House [employer] Choice [facility] Social History: Smoking Status (Most current) and Tobacco Use (All prior to encounter date) This section includes the most current, and the historical, smoking and tobacco- related health factors from the [place] facility where the Encounter took place. Current Smoking Status This section includes the most current smoking, or tobacco-related health factor, from the [place] facility where the Encounter took place. Date/Time Current Smoking Status Comment [facility] Sep 14, 2023 10:00 AM [place]-TOBACCO DOESNT USE WI 30 MIN WAKEUP [facility] Tobacco Use History This section includes a history of the smoking, or tobacco-related health factors, that were collected on or before the date of the Encounter. The data comes from the [facility] where the Encounter took place. Date/Time Smoking Status/Tobac co Use Comment Facility Sep 14, 2023 10:00 AM VA-TOBACCO USE 30 YEARS OR MORE [facility] [place] [facility] Sep 14, 2023 10:00 AM VA-TOBACCO USE ADVICE [facility] [place] [facility] Sep 14, 2023 10:00 AM VA-TOBACCO USE COMMODITY SPECIALIST NO [facility] [place] [facility] Sep 14, 2023 10:00 AM VA-TOBACCO USE MED NO [facility] [place] [facility] Sep 14, 2023 10:00 AM VA-TOBACCO USER EVERY DAY [facility] [place] [facility] Aug 02, 2022 01:11 PM VA-TOBACCO USE 30 YEARS OR MORE [facility] [place] [facility] Aug 02, 2022 01:11 PM VA-TOBACCO USE ADVICE [facility] [place] [facility] Aug 02, 2022 01:11 PM VA-TOBACCO USE COMMODITY SPECIALIST NO [facility] [place] [facility] Aug 02, 2022 01:11 PM VA-TOBACCO USE MED NO [facility] [place] [facility] Aug 02, 2022 01:11 PM VA-TOBACCO USE WI 30 MIN OF WAKEUP [facility] [place] [facility] Aug 02, 2022 01:11 PM VA-TOBACCO USER EVERY DAY [facility] [place] [facility] Jul 28, 2021 11:21 AM VA-TOBACCO USE 30 YEARS OR MORE [facility] [place] [facility] Jul 28, 2021 11:21 AM VA-TOBACCO USE ADVICE [facility] [place] [facility] Jul 28, 2021 11:21 AM VA-TOBACCO USE COMMODITY SPECIALIST NO [facility] [place] [facility] Jul 28, 2021 11:21 AM VA-TOBACCO USE MED NO [facility] [place] [facility] Jul 28, 2021 11:21 AM VA-TOBACCO USE WI 30 MIN OF WAKEUP [facility] [place] [facility] Jul 28, 2021 11:21 AM VA-TOBACCO USER EVERY DAY [facility] Jun 04, 2020 01:59 PM VA-TOBACCO USE 30 YEARS OR MORE [facility] Jun 04, 2020 01:59 PM VA-TOBACCO USE ADVICE [facility] Jun 04, 2020 01:59 PM VA-TOBACCO USE COMMODITY SPECIALIST NO [facility] Jun 04, 2020 01:59 PM VA-TOBACCO USE MED NO [facility] Jun 04, 2020 01:59 PM VA-TOBACCO USE [place] 30 MIN OF WAKEUP [facility] Jun 04, 2020 01:59 PM VA-TOBACCO USER EVERY DAY [facility] Mar 30, 2016 10:35 AM CURRENT SMOKER smokes about 1 pack every 3 days for about 45 years [facility] Encounter Notes: All associated encounter notes This section contains the clinical notes associated to the Encounter. Date/Time Encounter Note(s) Provider Source January 13, 2024 12:00 PM NONVA CONSULT: LOCAL TITLE: COMMUNITY CARE-CONSULT RESULT NOTE STANDARD TITLE: NONVA CONSULT DATE OF NOTE: JANUARY 13, 2024@12:00 ENTRY DATE: JAN 25, 2024@11:53:52 AUTHOR: STEPHANIE MCGEE EXP COSIGNER: URGENCY: STATUS: COMPLETED VistA Imaging - Scanned Document SCANNED DOCUMENT SIGNATURE NOT REQUIRED Electronically Filed: 01/25/2024 by: STEPHANIE MCGEE MEDICAL WHEEL INSPECTOR STEPHANIE MCGEE [facility]
--- OUTSIDE RECORDS SUMMARY | 2024-08-30 19:45 | XMS_ITS | Encounter Summary ---
Author Name [facility] [place] Address [address] [place] [address] Care Team Providers Care Radiology Clerk Name Role Phone HOMAR JD Primary Care [...] PART A May 15, 2015 PART A [id number] 00A KINJAL LAW SR PATIENT Selected Encounter This section includes the information on record at [place] for the Encounter. Date/Time Encounter Type Encounter Description Reason Pro vider Source Jan 27, 2024 10:31 AM Outpatient Encounter OPTOMETRY IHE Encounter Template [...] 20 appointments. The data comes from all [place] treatment facilities. Appointment Date/Time Appointment Type Appointme nt Facility Name Feb 24, 2024 09:00 AM AMBULATORY - MEDICINE [place] [facility] [place] [facility] Mar 07, 2024 09:00 AM [facility]IC[place] Mar 09, 2024 09:00 AM AMBULATORY - [place]ICINE [place] Mar 09, 2024 09:15 AM AMBUL[place]ORY - MEDICINE [place] Mar 14, 2024 10:00 AM AMBULATORY - MEDICINE [place] [facility] [place] [place] [facility] Mar 29, 2024 02:30 PM AMBULATORY - MEDICINE [place] [facility] [place] [facility] Apr 17, 2024 02:30 PM AMBULATORY - MEDICINE [place] [facility] [place] [place] [facility] Apr 25, 2024 11:15 AM AMBULATORY - MEDICINE [place] [facility] [place] [place] [facility] Jun 11, 2024 01:00 PM AMBULATORY - NONE [place] [facility] Jun 20, 2024 02:00 PM [facility] Active, Pending, and Scheduled Orders This section includes a listing of several types of active, pending, and scheduled orders, including clinic medications orders, diagnostic test orders, procedure orders and consult orders; where the start date of the order is 45 days before the date of the Encounter or 45 days after the date of theEncounter. The data comes from all [facility]. Test Date/Time Test Type Test Details Facility Name December 22, 2023 09:11 AM Consult Order COMMUNITY CARE-DENTAL GENERAL Cons Air Battle Manager's Choice [facility] Social History: Smoking Status (Most current) and Tobacco Use (All prior to encounter date) This section includes the most current, and the historical, smoking and tobacco- related health factors from the [place] facility where the Encounter took place. Current Smoking Status This section includes the most current smoking, or tobacco-related health factor, from the [place] facility where the Encounter took place. Date/Time Current Smoking Status Comment Davey vinson Sep 14, 2023 10:00 AM VA-TOBACCO USER EVERY DAY [facility] Tobacco Use History This section includes a history of the smoking, or tobacco-related health factors, that were collected on or before the date of the Encounter. The data comes from the [place] facility where the Encounter took place. Date/Time Smoking Status/Tobac co Use Comment Facility Sep 14, 2023 10:00 AM VA-TOBACCO USE 30 YEARS OR MORE [facility] [place] [facility] Sep 14, 2023 10:00 AM VA-TOBACCO USE ADVICE [facility] [place] [facility] Sep 14, 2023 10:00 AM VA-TOBACCO USE CREDIT COLLECTION SPECIALIST NO [facility] [place] [facility] Sep 14, 2023 10:00 AM VA-TOBACCO USE MED NO [facility] [place] [facility] Sep 14, 2023 10:00 AM VA-TOBACCO USER EVERY DAY [facility] [place] [facility] Aug 02, 2022 01:11 PM VA-TOBACCO USE 30 YEARS OR MORE [facility] [place] [facility] Aug 02, 2022 01:11 PM VA-TOBACCO USE ADVICE [facility] [place] [facility] Aug 02, 2022 01:11 PM VA-TOBACCO USE CREDIT COLLECTION SPECIALIST NO [facility] [place] [facility] Aug 02, 2022 01:11 PM VA-TOBACCO USE MED NO [facility] [place] [facility] Aug 02, 2022 01:11 PM VA-TOBACCO USE WI 30 MIN OF WAKEUP [facility] [place] [facility] Aug 02, 2022 01:11 PM VA-TOBACCO USER EVERY DAY [facility] [place] [facility] Jul 28, 2021 11:21 AM VA-TOBACCO USE 30 YEARS OR MORE [facility] [place] [facility] Jul 28, 2021 11:21 AM VA-TOBACCO USE ADVICE [facility] [place] [facility] Jul 28, 2021 11:21 AM VA-TOBACCO USE CREDIT COLLECTION SPECIALIST NO [facility] [place] [facility] Jul 28, 2021 11:21 AM VA-TOBACCO USE MED NO [facility] [place] [facility] Jul 28, 2021 11:21 AM VA-TOBACCO USE WI 30 MIN OF WAKEUP [facility] [place] [facility] Jul 28, 2021 11:21 AM VA-TOBACCO USER EVERY DAY [facility] [place] [facility] Jun 04, 2020 01:59 PM VA-TOBACCO USE 30 YEARS OR MORE [facility] [place] [facility] Jun 04, 2020 01:59 PM VA-TOBACCO USE ADVICE [facility] [place] [facility] Jun 04, 2020 01:59 PM VA-TOBACCO USE CREDIT COLLECTION SPECIALIST NO [facility] Jun 04, 2020 01:59 PM VA-TOBACCO USE MED NO [facility] Jun 04, 2020 01:59 PM VA-TOBACCO USE [place] 30 MIN OF WAKEUP [place] [facility] Jun 04, 2020 01:59 PM VA-TOBACCO USER EVERY DAY [place] [facility] Mar 30, 2016 10:35 AM CURRENT SMOKER smokes about 1 pack every 3 days for about [address] [facility] Encounter Notes: All associated encounter notes This section contains the clinical notes associated to the Encounter. Date/Time Encounter Note(s) Provider Source Jan 27, 2024 10:36 AM OPTOMETRY NOTE: LOCAL TITLE: OPTOMETRY NOTE STANDARD TITLE: OPTOMETRY NOTE DATE OF NOTE: JAN 27, 2024@10:36 ENTRY DATE: JAN 27, 2024@10:36:36 AUTHOR: CHAUNCEY GRAHAM EXP COSIGNER: URGENCY: STATUS: COMPLETED OPT HT ordered patient 1 time replacement pair of eyeglasses as requested d/t scratched lenses. /subhash/ CHAUNCEY GRAHAM OPTOMETRY TECH Signed: 01/27/2024 10:37 CHAUNCEY GRAHAM [facility]
--- OUTSIDE RECORDS SUMMARY | 2024-08-30 19:45 | XMS_ITS | Encounter Summary ---
Author Name [facility] [place] Organization [place] Address [address] [place] [address] Care Team Providers Care Conveyor Feeder Offbearer Name Role Phone HOMARJD FIELD Primary Care [...] PART A May 15, 2015 PART A [id number] 00A KINJAL LAW SR PATIENT Selected Encounter This section includes the information on record at [place] for the Encounter. Date/Time Encounter Type Encounter Description Reason Pro vider Source Oct 17, 2023 11:24 AM Outpatient Encounter PRIMARY CARE/MEDICINE IHE Encounter [...] Appointment Type Appointme nt Facility Name Oct 31, 2023 11:30 AM AMBULATORY - MEDICINE [place] [facility] December 20, 2023 09:45 AM AMBULATORY - MEDICINE [place] [facility] Feb 24, 2024 09:00 AM AMBULATORY - MEDICINE [place] [facility] Mar 07, 2024 09:00 AM [facility]ATORY [facility] Mar 09, 2024 09:00 AM AMBULATORY [facility] Mar 09, 2024 09:15 AM AMBULATORY [facility]INE [facility] Mar 14, 2024 10:00 AM AMBULATORY - MEDICINE [place] [facility] Mar 29, 2024 02:30 PM AMBULATORY - MEDICINE [place] [facility] Apr 17, 2024 02:30 PM AMBULATORY - MEDICINE [place] [facility] Lab Results: +/- 30 days of the encounter This section includes the Chemistry and Hematology Lab Results on record with [place] for the patient. Radiology Reports and Pathology Reports are provided separately, in subsequent sections. Lab Results This section contains the Chemistry/Hematology Results that were resulted 30 days before or 30 daysafter the date of the Encounter. Date/Time Source Result Type Result - Unit Interpretation Reference Range Comment Oct 17, 2023 11:12 AM [facility] TSH Specimen Type: SERUM No comment entered. Ordering Provider: EMANUEL MATTHEWS Report Released Date/Time: Sep 07, 2023 09:48 AM Reporting Lab: [facility] [address] [facility] [address] Performing Lab: [facility] [address] [facility] [address] TSH 1.81 u[IU]/mL 0.35-5.00 Oct 17, 2023 11:12 AM [facility] HEMOGLOBIN A1C PANEL Specimen Type: BLOOD Comment: [...] Sep 07, 2023 09:48 AM Reporting Lab: [address] [address] Performing Lab: [address] [address] HEMOGLOBIN A1C 6.1 H 4.0-5.6 Oct 17, 2023 11:12 AM [facility] LIPID PANEL FASTING Specimen Type: SERUM No comment entered. Ordering Provider: EMANUEL MATTHEWS Report Released Date/Time: Sep 07, 2023 09:48 AM Reporting Lab: [address] [address] Performing Lab: [address] [address] CHOLESTEROL 161 mg/dL TRIGLYCERIDE 205 mg/dL H 0-150 LDL calculated 84 mg/dL 0-129 CHOL/HDL 4.5 HDL CHOLESTEROL 36 mg/dL L 40-60 Oct 17, 2023 11:12 AM [facility] LIVER FUNCTION Specimen Type: SERUM No comment entered. Ordering Provider: EMANUEL MATTHEWS Report Released Date/Time: Sep 07, 2023 09:48 AM Reporting Lab: [address] [address] Performing Lab: [address] [address] PROTEIN,TOTAL 6.4 g/dL 6.0-8.3 ALBUMIN 3.5 g/dL 3.5-5.0 ALKALINE PHOSPHATASE 69 U/L 40-150 AST 14 U/L 5-34 ALT 17 U/L BILIRUBIN, TOTAL 0.4 mg/dL 0.2-1.2 Oct 17, 2023 11:12 AM [facility] BASIC METABOLIC PANEL (fasting) Specimen Type: SERUM No comment entered. Ordering Provider: EMANUEL MATTHEWS Report Released Date/Time: Sep 07, 2023 09:48 AM Reporting Lab: [facility] [address] [address] Performing Lab: [facility] [address] UREA NITROGEN 26 mg/dL H 7-25 GLUCOSE 84 mg/dL 65-100 SODIUM 139 mmol/L 135-145 POTASSIUM 4.8 mmol/L 3.5-5.0 CHLORIDE 109 mmol/L 100-110 CO2 23 meq/L 20-30 CREATININE, Serum 1.68 mg/dL H 0.50-1.40 eGFR(CKD-EPI 2020) 42 mL/min L >60 Oct 17, 2023 11:12 AM [facility] PSA Specimen Type: SERUM No comment entered. Ordering Provider: EMANUEL MATTHEWS Report Released Date/Time: Sep 07, 2023 09:48 AM Reporting Lab: [facility] [address] [address] Performing Lab: [facility] [address] PSA 0.29 ng/mL 0.00-4.00 Oct 17, 2023 11:12 AM [facility] CBC AND DIFF (AUTO) Specimen Type: BLOOD No comment entered. Ordering Provider: EMANUEL MATTHEWS Report Released Date/Time: Sep 07, 2023 09:48 AM Reporting Lab: [facility] [address] [address] Performing Lab: [facility] [address] WBC 4.23 10*3/uL L 4.50-11.00 RBC 4.19 10*6/uL L 4.23-5.66 HGB 12.5 g/dL L 12.8-17 HCT 38.3 L 39.2-50.4 MCV 91.4 fL 82-99 MCHC 32.6 g/dL 30.8-35.1 PLT 167 10*3/uL 140-360 RDW-CV 16.7 H 12.0-16.0 [place], Abs 0.61 10*3/uL 0.30-1.10 MCH 29.8 pg 26.2-32.6 Neut % 57.3 43.7-75.8 Lymph % 20.3 14.0-42.3 [place] % 14.4 H 5.1-13.7 Eos % 7.1 [...] took place. Date/Time Current Smoking Status Comment [facility] Sep 14, 2023 10:00 AM VA-TOBACCO USER EVERY DAY [place] [facility] Tobacco Use History This section includes a history of the smoking, or tobacco-related health factors, that were collected on or before the date of the Encounter. The data comes from the [place] facility where the Encounter took place. Date/Time Smoking Status/Tobac co Use Comment Facility Sep 14, 2023 10:00 AM VA-TOBACCO USE 30 YEARS OR MORE [place] [facility] [place] [facility] Sep 14, 2023 10:00 AM VA-TOBACCO USE ADVICE [place] [facility] [place] [facility] Sep 14, 2023 10:00 AM VA-TOBACCO USE READING PROFESSOR NO [place] [facility] [place] [facility] Sep 14, 2023 10:00 AM VA-TOBACCO USE MED NO [place] [facility] Sep 14, 2023 10:00 AM VA-TOBACCO USER EVERY DAY [place] [facility] [place] [facility] Aug 02, 2022 01:11 PM VA-TOBACCO USE 30 YEARS OR MORE [place] [facility] [place] [facility] Aug 02, 2022 01:11 PM VA-TOBACCO USE ADVICE [place] [facility] [place] [facility] Aug 02, 2022 01:11 PM VA-TOBACCO USE READING PROFESSOR NO [place] [facility] [place] [facility] Aug 02, 2022 01:11 PM VA-TOBACCO USE MED NO [place] [facility] [place] [facility] Aug 02, 2022 01:11 PM VA-TOBACCO USE WI 30 MIN OF WAKEUP [facility] [place] [facility] Aug 02, 2022 01:11 PM VA-TOBACCO USER EVERY DAY [place] [facility] [place] [facility] Jul 28, 2021 11:21 AM VA-TOBACCO USE 30 YEARS OR MORE [place] [facility] [place] [facility] Jul 28, 2021 11:21 AM VA-TOBACCO USE ADVICE [place] [facility] [place] [facility] Jul 28, 2021 11:21 AM VA-TOBACCO USE READING PROFESSOR NO [place] [facility] [place] [facility] Jul 28, 2021 11:21 AM VA-TOBACCO USE MED NO [place] [facility] [place] [facility] Jul 28, 2021 11:21 AM VA-TOBACCO USE WI 30 MIN OF WAKEUP [place] [place] [facility] Jul 28, 2021 11:21 AM VA-TOBACCO USER EVERY DAY [place] [facility] [place] [facility] Jun 04, 2020 01:59 PM VA-TOBACCO USE 30 YEARS OR MORE [place] [facility] [place] [facility] Jun 04, 2020 01:59 PM VA-TOBACCO USE ADVICE [place] [facility] [place] [facility] Jun 04, 2020 01:59 PM VA-TOBACCO USE READING PROFESSOR NO [place] [facility] [place] [facility] Jun 04, 2020 01:59 PM VA-TOBACCO USE MED NO [place] [facility] [place] [facility] Jun 04, 2020 01:59 PM VA-TOBACCO USE [place] 30 MIN OF WAKEUP [place] [facility] [place] [facility] Jun 04, 2020 01:59 PM VA-TOBACCO USER EVERY DAY [place] [facility] [place] [facility] Mar 30, 2016 10:35 AM CURRENT SMOKER smokes about 1 pack every 3 days for about 45 years [place] [facility] Encounter Notes: All associated encounter notes This section contains the clinical notes associated to the Encounter. Date/Time Encounter Note(s) Provider Source Oct 17, 2023 11:24 AM PRIMARY CARE NOTE: LOCAL TITLE: WALK-IN NOTE PRIMARY CARE (T) STANDARD TITLE: PRIMARY CARE NOTE DATE OF NOTE: OCT 17, 2023@11:24 ENTRY DATE: OCT 17, 2023@11:24:35 AUTHOR: LAVON DAVIS EXP COSIGNER: URGENCY: STATUS: COMPLETED <====Click to Start Advanced Medical Support Harrells presents to the Primary Care clinic with the following request: [ ]Medication Renewal/Refill [ ]Consultation with Team RN [ ]Symptoms [ X ]Other The states they are: [ ]Waiting [ X ]Not Waiting No Walk in visit scheduled with PACT Nurse [ X ] At this encounter the 's demographics were verified. [ X ] At this encounter the 's Insurance information was verified. [ ] At this encounter the below scheduled visits for the Harrells were discussed and appointment reminder card was offered. Future appointments: 10/31/2023 11:30 NHM/PULMONARY FUNCTION TE 01/20/2024 11:30 CWM/SO/PACT 4 08/06/2024 09:30 CWM/NO/OPTOMETRY/MERHAR walked into clinic and filled out NADIA [facility] FORM [id number] for lab results and picked up from keyanna layenk /subhash/ LAVON DAVIS ADVANCED HEALTHCARE REPRESENTATIVE Signed: 10/17/2023 11:41 LAVON DAVIS TOLSTOY
--- OUTSIDE RECORDS SUMMARY | 2024-08-30 19:45 | XMS_ITS | Encounter Summary ---
Author Name [facility] [place] [place] [facility] [place] Address [address] [place] [address] Care Team Providers Care Lacquer Coater Name Role Phone HOMAR JD Primary Care [...] PART A May 15, 2015 PART A [id number] 00A KINJAL LAW SR PATIENT Selected Encounter This section includes the information on record at [place] for the Encounter. Date/Time Encounter Type Encounter Description Reason Pro vider Source Jan 23, 2024 09:50 AM Outpatient Encounter PRIMARY CARE/MEDICINE IHE Encounter Template Text not used by [place] Plan of Treatment: Future Appointments (+ 6 [...] 20 appointments. The data comes from all [place] treatment facilities. Appointment Date/Time Appointment Type Appointme nt Facility Name Feb 24, 2024 09:00 AM AMBULATORY - MEDICINE [place] [facility] Mar 07, 2024 09:00 AM [facility] Mar 09, 2024 09:00 AM [facility] Mar 09, 2024 09:15 AM [facility] - MEDICINE [facility] Mar 14, 2024 10:00 AM AMBULATORY - MEDICINE [place] [facility] Mar 29, 2024 02:30 PM AMBULATORY - MEDICINE [place] [facility] Apr 17, 2024 02:30 PM AMBULATORY - MEDICINE [place] [facility] Apr 25, 2024 11:15 AM AMBULATORY - MEDICINE [place] [facility] Jun 11, 2024 01:00 PM AMBULATORY - NONE [place] [facility] Jun 20, 2024 02:00 PM [facility] Active, Pending, and Scheduled Orders This section includes a listing of several types of active, pending, and scheduled orders, including clinic medications orders, diagnostic test orders, procedure orders and consult orders; where the start date of the order is 45 days before the date of the Encounter or 45 days after the date of theEncounter. The data comes from all [facility]. Test Date/Time Test Type Test Details Facility Name December 22, 2023 09:11 AM Consult Order COMMUNITY CARE-DENTAL GENERAL Cons Outside Plant Technician's Choice [facility] Social History: Smoking Status (Most current) and Tobacco Use (All prior to encounter date) This section includes the most current, and the historical, smoking and tobacco- related health factors from the [place] facility where the Encounter took place. Current Smoking Status This section includes the most current smoking, or tobacco-related health factor, from the [place] facility where the Encounter took place. Date/Time Current Smoking Status Comment Davey vinson Sep 14, 2023 10:00 AM [place]-TOBACCO DOESNT USE [place] 30 MIN WAKEUP [facility] Tobacco Use History This section includes a history of the smoking, or tobacco-related health factors, that were collected on or before the date of the Encounter. The data comes from the [facility] where the Encounter took place. Date/Time Smoking Status/Tobac co Use Comment Facility Sep 14, 2023 10:00 AM VA-TOBACCO USE 30 YEARS OR MORE [place] [facility] [place] [facility] Sep 14, 2023 10:00 AM VA-TOBACCO USE ADVICE [place] [facility] [place] [facility] Sep 14, 2023 10:00 AM VA-TOBACCO USE PAPER REELER NO [place] [facility] [place] [facility] Sep 14, 2023 10:00 AM VA-TOBACCO USE MED NO [place] [facility] [place] [facility] Sep 14, 2023 10:00 AM VA-TOBACCO USER EVERY DAY [place] [facility] [place] [facility] Aug 02, 2022 01:11 PM VA-TOBACCO USE 30 YEARS OR MORE [place] [facility] [place] [facility] Aug 02, 2022 01:11 PM VA-TOBACCO USE ADVICE [place] [facility] [place] [facility] Aug 02, 2022 01:11 PM VA-TOBACCO USE PAPER REELER NO [facility] [place] [facility] Aug 02, 2022 01:11 PM VA-TOBACCO USE MED NO [place] [facility] [place] [facility] Aug 02, 2022 01:11 PM VA-TOBACCO USE [place] 30 MIN OF WAKEUP [place] [facility] [place] [facility] Aug 02, 2022 01:11 PM VA-TOBACCO USER EVERY DAY [place] [facility] [place] [facility] Jul 28, 2021 11:21 AM VA-TOBACCO USE 30 YEARS OR MORE [place] [facility] [place] [facility] Jul 28, 2021 11:21 AM VA-TOBACCO USE ADVICE [place] [facility] [place] [facility] Jul 28, 2021 11:21 AM VA-TOBACCO USE PAPER REELER NO [place] [facility] [place] [facility] Jul 28, 2021 11:21 AM VA-TOBACCO USE MED NO [place] [facility] [place] [facility] Jul 28, 2021 11:21 AM VA-TOBACCO USE WI 30 MIN OF WAKEUP [place] [facility] [place] [facility] Jul 28, 2021 11:21 AM VA-TOBACCO USER EVERY DAY [place] [facility] [place] [facility] Jun 04, 2020 01:59 PM VA-TOBACCO USE 30 YEARS OR MORE [place] [facility]TR [place] [facility] Jun 04, 2020 01:59 PM VA-TOBACCO USE ADVICE [place] [facility] Jun 04, 2020 01:59 PM VA-TOBACCO USE PAPER REELER NO [facility] Jun 04, 2020 01:59 PM VA-TOBACCO USE MED NO [facility] Jun 04, 2020 01:59 PM VA-TOBACCO USE [place] 30 MIN OF WAKEUP [facility] Jun 04, 2020 01:59 PM VA-TOBACCO USER EVERY DAY [facility] Mar 30, 2016 10:35 AM CURRENT SMOKER smokes about 1 pack every 3 days for about 45 years [facility] Encounter Notes: All associated encounter notes This section contains the clinical notes associated to the Encounter. Date/Time Encounter Note(s) Provider Source Jan 23, 2024 09:50 AM ADMINISTRATIVE NOT E: LOCAL TITLE: ADMINISTRATIVE NOTE STANDARD TITLE: ADMINISTRATIVE NOTE DATE OF NOTE: JAN 23, 2024@09:50 ENTRY DATE: JAN 23, 2024@09:50:20 AUTHOR: SAILAJA WOODY COSIGNER: URGENCY: STATUS: COMPLETED THIS HOSPICE PLAN ADMINISTRATOR HAD SPOKEN TO TO RESCHEDULE F2F APPT WITH CWM/SO/PACT EIGHT PROVIDER ON 03/07/2024 AT 09:00AM FOR ANNUAL AND FASTING LABS. /subhash/ LUI WOODY ADVANCED SOURCING ASSISTANT Signed: 01/23/2024 09:51 LUI WOODY [place]
--- OUTSIDE RECORDS SUMMARY | 2024-08-30 19:45 | XMS_ITS | Encounter Summary ---
Author Name [facility] [place] [facility] [place] [facility] [place] Address [address] [place] [address] Care Team Providers Care Crimp Setter Name Role Phone JD GRAF Primary Care [...] PART A May 15, 2015 PART A [id number] KINJAL LAW SR PATIENT Selected Encounter This section includes the information on record at [place] for the Encounter. Date/Time Encounter Type Encounter Description Reason Pro vider Source Oct 13, 2023 08:39 AM Outpatient Encounter DENTAL IHE Encounter Template Text not used by [...] 20 appointments. The data comes from all [place] treatment facilities. Appointment Date/Time Appointment Type Appointme nt Facility Name Oct 14, 2023 10:45 AM AMBULATORY - NONE [facility] [place] [facility] Oct 31, 2023 11:30 AM AMBULATORY - MEDICINE [facility] [place] [facility] December 20, 2023 09:45 AM AMBULATORY - MEDICINE [facility] [place] [facility] Feb 24, 2024 09:00 AM AMBULATORY - MEDICINE [place] [facility] [place] [facility] Mar 07, 2024 09:00 AM [facility]ATORY - MEDICINE [facility] Mar 09, 2024 09:00 AM AMBULATORY - MEDICINE [facility] Mar 09, 2024 09:15 AM AMBULATORY - MEDICINE [facility] Mar 14, 2024 10:00 AM AMBULATORY - MEDICINE [place] [facility] [place] [facility] Mar 29, 2024 02:30 PM [facility] Lab Results: +/- 30 days of the encounter This section includes the Chemistry and Hematology Lab Results on record with [place] for the patient. Radiology Reports and Pathology Reports are provided separately, in subsequent sections. Lab Results This section contains the Chemistry/Hematology Results that were resulted 30 days before or 30 daysafter the date of the Encounter. Date/Time Source Result Type Result - Unit Interpretation Reference Range Comment Oct 17, 2023 11:12 AM [facility] HEMOGLOBIN A1C PANEL Specimen Type: BLOOD [...] Sep 07, 2023 09:48 AM Reporting Lab: [address] [id number] Performing Lab: [address] [address] HEMOGLOBIN A1C 6.1 H 4.0-5.6 Oct 17, 2023 11:12 AM [facility] TSH Specimen Type: SERUM No comment entered. Ordering Provider: EMANUEL MATTHEWS Report Released Date/Time: Sep 07, 2023 09:48 AM Reporting Lab: [facility] [address] [facility] [address] Performing Lab: [address] [address] TSH 1.81 u[IU]/mL 0.35-5.00 Oct 17, 2023 11:12 AM [facility] LIPID PANEL FASTING Specimen Type: SERUM No comment entered. Ordering Provider: EMANUEL MATTHEWS Report Released Date/Time: Sep 07, 2023 09:48 AM Reporting Lab: [address] [address] Performing Lab: [address] [address] CHOLESTEROL 161 mg/dL TRIGLYCERIDE 205 mg/dL H 0-150 LDL calculated 84 mg/dL 0-129 CHOL/HDL 4.5 HDL CHOLESTEROL 36 mg/dL L 40-60 Oct 17, 2023 11:12 AM [facility] LIVER FUNCTION Specimen Type: SERUM No comment entered. Ordering Provider: EMANUEL MATTHEWS Report Released Date/Time: Sep 07, 2023 09:48 AM Reporting Lab: [address] [address] Performing Lab: [address] [address] PROTEIN,TOTAL 6.4 g/dL 6.0-8.3 ALBUMIN 3.5 g/dL 3.5-5.0 ALKALINE PHOSPHATASE 69 U/L 40-150 AST 14 U/L 5-34 ALT 17 U/L BILIRUBIN, TOTAL 0.4 mg/dL 0.2-1.2 Oct 17, 2023 11:12 AM [facility] BASIC METABOLIC PANEL (fasting) Specimen Type: SERUM No comment entered. Ordering Provider: EMANUEL MATTHEWS Report Released Date/Time: Sep 07, 2023 09:48 AM Reporting Lab: [facility] [address] [facility] [address] Performing Lab: [address] [address] UREA NITROGEN 26 mg/dL H 7-25 GLUCOSE 84 mg/dL 65-100 SODIUM 139 mmol/L 135-145 POTASSIUM 4.8 mmol/L 3.5-5.0 CHLORIDE 109 mmol/L 100-110 CO2 23 meq/L 20-30 CREATININE, Serum 1.68 mg/dL H 0.50-1.40 eGFR(CKD-EPI 2020) 42 mL/min L >60 Oct 17, 2023 11:12 AM [facility] PSA Specimen Type: SERUM No comment entered. Ordering Provider: EMANUEL MATTHEWS Report Released Date/Time: Sep 07, 2023 09:48 AM Reporting Lab: [address] [address] Performing Lab: [address] [address] PSA 0.29 ng/mL 0.00-4.00 Oct 17, 2023 11:12 AM [facility] CBC AND DIFF (AUTO) Specimen Type: BLOOD No comment entered. Ordering Provider: EMANUEL MATTHEWS Report Released Date/Time: Sep 07, 2023 09:48 AM Reporting Lab: [address] [address] Performing Lab: [address] [address] WBC 4.23 10*3/uL L 4.50-11.00 RBC 4.19 10*6/uL L 4.23-5.66 HGB 12.5 g/dL L 12.8-17 HCT 38.3 L 39.2-50.4 MCV 91.4 fL 82-99 MCHC 32.6 g/dL 30.8-35.1 PLT 167 10*3/uL 140-360 RDW-CV 16.7 H 12.0-16.0 [place], Abs 0.61 10*3/uL 0.30-1.10 MCH 29.8 pg 26.2-32.6 Neut % 57.3 43.7-75.8 Lymph % 20.3 14.0-42.3 [place] % 14.4 H 5.1-13.7 Eos % 7.1 [...] and tobacco- related health factors from the [place] facility where the Encounter took place. Current Smoking Status This section includes the most current smoking, or tobacco-related health factor, from the [place] facility where the Encounter took place. Date/Time Current Smoking Status Comment [facility] Sep 14, 2023 10:00 AM VA-TOBACCO USER EVERY DAY [facility] Tobacco Use History This section includes a history of the smoking, or tobacco-related health factors, that were collected on or before the date of the Encounter. The data comes from the [place] facility where the Encounter took place. Date/Time Smoking Status/Tobac co Use Comment Facility Sep 14, 2023 10:00 AM VA-TOBACCO USE 30 YEARS OR MORE [facility] [place] [facility] Sep 14, 2023 10:00 AM VA-TOBACCO USE ADVICE [facility] [place] [facility] Sep 14, 2023 10:00 AM VA-TOBACCO USE MOBILE EQUIPMENT OPERATOR NO [facility] [place] [facility] Sep 14, 2023 10:00 AM VA-TOBACCO USE MED NO [facility] [place] [facility] Sep 14, 2023 10:00 AM VA-TOBACCO USER EVERY DAY [facility] [place] [facility] Aug 02, 2022 01:11 PM VA-TOBACCO USE 30 YEARS OR MORE [facility] [place] [facility] Aug 02, 2022 01:11 PM VA-TOBACCO USE ADVICE [facility] [place] [facility] Aug 02, 2022 01:11 PM VA-TOBACCO USE MOBILE EQUIPMENT OPERATOR NO [facility] [place] [facility] Aug 02, 2022 01:11 PM VA-TOBACCO USE MED NO [facility] [place] [facility] Aug 02, 2022 01:11 PM VA-TOBACCO USE [place] 30 MIN OF WAKEUP [facility] [place] [facility] Aug 02, 2022 01:11 PM VA-TOBACCO USER EVERY DAY [facility] [place] [facility] Jul 28, 2021 11:21 AM VA-TOBACCO USE 30 YEARS OR MORE [facility] [place] [facility] Jul 28, 2021 11:21 AM VA-TOBACCO USE ADVICE [facility] [place] [facility] Jul 28, 2021 11:21 AM VA-TOBACCO USE MOBILE EQUIPMENT OPERATOR NO [facility] [place] [facility] Jul 28, 2021 11:21 AM VA-TOBACCO USE MED NO [facility] [place] [facility] Jul 28, 2021 11:21 AM VA-TOBACCO USE [place] 30 MIN OF WAKEUP [facility] [place] [facility] Jul 28, 2021 11:21 AM VA-TOBACCO USER EVERY DAY [facility] [place] [facility] Jun 04, 2020 01:59 PM VA-TOBACCO USE 30 YEARS OR MORE [facility] [place] [facility] Jun 04, 2020 01:59 PM VA-TOBACCO USE ADVICE [facility] [place] [facility] Jun 04, 2020 01:59 PM VA-TOBACCO USE MOBILE EQUIPMENT OPERATOR NO [facility] [place] [facility] Jun 04, 2020 01:59 PM VA-TOBACCO USE MED NO [facility] [place] [facility] Jun 04, 2020 01:59 PM VA-TOBACCO USE [place] 30 MIN OF WAKEUP [facility] [place] [facility] Jun 04, 2020 01:59 PM VA-TOBACCO USER EVERY DAY [facility] [place] [facility] Mar 30, 2016 10:35 AM CURRENT SMOKER smokes about 1 pack every 3 days for about 45 years [facility] Radiology Reports: +/- 30 days of the [...] the Encounter. The data comes from all [place] treatment facilities. Date/Time Radiology Report Provider Source Sep 14, 2023 09:[address] PULMONARY NODULES W/O CONTRAST: LAWKINJAL [id number] -1950 M Exm Date: SEP 14, 2023@09:21 Req Phys: EMANUEL MATTHEWS Loc: CWM/SO/PACT 4 (Req'g Loc) Img Loc: [facility]/CT Service: Unknown (Case [id number] COMPLETE) CT THORAX W/O CONT (CT Detailed) CPT:89844 Reason for Study: f/u cat scan in 20+pack year smoker (Case [id number] COMPLETE) CT ABDOMEN W/O CONT (CT Detailed) CPT:54749 Clinical History: 1. Multifocal cystic lesions in the liver, enlarged compared to 11/11/2016. 2. The previously described sclerotic lesion within the T3 vertebral body is unchanged, likely benign. 3. Mild cardiomegaly. 4. No new or suspicious pulmonary nodule. Report Status: Verified Date Reported: SEP 14, 2023 Date Verified: SEP 14, 2023 Trade Union Secretary E-Sig:/ES/LEONILA HOGUE JR Report: Study: Noncontrast CT [...] Primary Interpreting Staff: LEONILA HOGUE JR, Radiologist (Trade Union Secretary) /LEONILA TIJERINA JR [facility] Encounter Notes: All associated encounter notes This section contains the clinical notes associated to the Encounter. Date/Time Encounter Note(s) Provider Source Oct 13, 2023 08:39 AM DENTISTRY TELEPHON E ENCOUNTER NOTE: LOCAL TITLE: TELEPHONE NOTE/DENTAL STANDARD TITLE: DENTISTRY TELEPHONE ENCOUNTER NOTE DATE OF NOTE: OCT 13, 2023@08:39 ENTRY DATE: OCT 13, 2023@08:39:34 AUTHOR: VAISHALI CORTES EXP COSIGNER: URGENCY: STATUS: COMPLETED Spoke with pt to confirm dental appointment on 10/14/2023 at 10:45 am /subhash/ VAISHALI CORTES ADVANCED COIL STRAPPER Signed: 10/13/2023 08:40 VAISHALI CORTES [facility]
--- OUTSIDE RECORDS SUMMARY | 2024-08-30 19:45 | XMS_ITS ---
Author Name [facility] [place] [facility] [place] Organization [facility] [place] Address [address] [place] [address] Care Team Providers Care Switchboard Operator Supervisor Name Role Phone JD GRAF Primary Care [...] PART A May 15, 2015 PART A [id number] 00A KINJAL LAW SR PATIENT Selected Encounter This section includes the information on record at [place] for the Encounter. Date/Time Encounter Type Encounter Description Reason Pro vider Source Oct 21, 2023 11:27 AM Outpatient Encounter ADMIN PAT ACTIVTIES (MASNONCT) IHE Encounter Template Text not used by [place] Plan of Treatment: Future Appointments (+ 6 [...] 20 appointments. The data comes from all [place] treatment facilities. Appointment Date/Time Appointment Type Appointme nt Facility Name Oct 31, 2023 11:30 AM AMBULATORY - MEDICINE [place] [facility] [place] [facility] December 20, 2023 09:45 AM AMBULATORY - MEDICINE [place] [facility] [place] [facility] Feb 24, 2024 09:00 AM AMBULATORY - MEDICINE [place] [facility] [place] [facility] Mar 07, 2024 09:00 AM [facility] Mar 09, 2024 09:00 AM [facility]ATORY - MEDICINE [facility] Mar 09, 2024 09:15 AM AMBULATORY - MEDICINE [facility] Mar 14, 2024 10:00 AM AMBULATORY - MEDICINE [place] [facility] [place] [facility] Mar 29, 2024 02:30 PM AMBULATORY - MEDICINE [place] [facility] [place] [facility] Apr 17, 2024 02:30 PM [facility] Lab Results: +/- 30 days of the encounter This section includes the Chemistry and Hematology Lab Results on record with [place] for the patient. Radiology Reports and Pathology Reports are provided separately, in subsequent sections. Lab Results This section contains the Chemistry/Hematology Results that were resulted 30 days before or 30 daysafter the date of the Encounter. Date/Time Source Result Type Result - Unit Interpretation Reference Range Comment Oct 17, 2023 11:12 AM [facility] HEMOGLOBIN A1C PANEL Specimen Type: BLOOD Comment: [...] Sep 07, 2023 09:48 AM Reporting Lab: [address] [address] Performing Lab: [address] [address] HEMOGLOBIN A1C 6.1 H 4.0-5.6 Oct 17, 2023 11:12 AM [facility] TSH Specimen Type: SERUM No comment entered. Ordering Provider: EMANUEL MATTHEWS Report Released Date/Time: Sep 07, 2023 09:48 AM Reporting Lab: [facility] [address] [facility] [address] Performing Lab: [address] [address] TSH 1.81 u[IU]/mL 0.35-5.00 Oct 17, 2023 11:12 AM [facility] LIPID PANEL FASTING Specimen Type: SERUM No comment entered. Ordering Provider: EMANUEL MATTHEWS Report Released Date/Time: Sep 07, 2023 09:48 AM Reporting Lab: [address] [address] Performing Lab: [address] [address] CHOLESTEROL 161 mg/dL TRIGLYCERIDE 205 mg/dL H 0-150 LDL calculated 84 mg/dL 0-129 CHOL/HDL 4.5 HDL CHOLESTEROL 36 mg/dL L 40-60 Oct 17, 2023 11:12 AM [facility] BASIC METABOLIC PANEL (fasting) Specimen Type: SERUM No comment entered. Ordering Provider: EMANUEL MATTHEWS Report Released Date/Time: Sep 07, 2023 09:48 AM Reporting Lab: [facility] [address] [facility] [address] Performing Lab: [address] [address] UREA NITROGEN 26 mg/dL H 7-25 GLUCOSE 84 mg/dL 65-100 SODIUM 139 mmol/L 135-145 POTASSIUM 4.8 mmol/L 3.5-5.0 CHLORIDE 109 mmol/L 100-110 CO2 23 meq/L 20-30 CREATININE, Serum 1.68 mg/dL H 0.50-1.40 eGFR(CKD-EPI 2020) 42 mL/min L >60 Oct 17, 2023 11:12 AM [facility] LIVER FUNCTION Specimen Type: SERUM No comment entered. Ordering Provider: EMANUEL MATTHEWS Report Released Date/Time: Sep 07, 2023 09:48 AM Reporting Lab: [address] [address] Performing Lab: [address] [address] PROTEIN,TOTAL 6.4 g/dL 6.0-8.3 ALBUMIN 3.5 g/dL 3.5-5.0 ALKALINE PHOSPHATASE 69 U/L 40-150 AST 14 U/L 5-34 ALT 17 U/L BILIRUBIN, TOTAL 0.4 mg/dL 0.2-1.2 Oct 17, 2023 11:12 AM [facility] PSA Specimen Type: SERUM No comment entered. Ordering Provider: EMANUEL MATTHEWS Report Released Date/Time: Sep 07, 2023 09:48 AM Reporting Lab: [address] [address] Performing Lab: [address] [address] PSA 0.29 ng/mL 0.00-4.00 Oct 17, 2023 11:12 AM [facility] CBC AND DIFF (AUTO) Specimen Type: BLOOD No comment entered. Ordering Provider: EMANUEL MATTHEWS Report Released Date/Time: Sep 07, 2023 09:48 AM Reporting Lab: [address] [address] Performing Lab: [address] [address] WBC 4.23 10*3/uL L 4.50-11.00 RBC 4.19 10*6/uL L 4.23-5.66 HGB 12.5 g/dL L 12.8-17 HCT 38.3 L 39.2-50.4 MCV 91.4 fL 82-99 MCHC 32.6 g/dL 30.8-35.1 PLT 167 10*3/uL 140-360 RDW-CV 16.7 H 12.0-16.0 [place], Abs 0.61 10*3/uL 0.30-1.10 MCH 29.8 pg 26.2-32.6 Neut % 57.3 43.7-75.8 Lymph % 20.3 14.0-42.3 [place] % 14.4 H 5.1-13.7 Eos % 7.1 [...] and tobacco- related health factors from the [place] facility where the Encounter took place. Current Smoking Status This section includes the most current smoking, or tobacco-related health factor, from the [place] facility where the Encounter took place. Date/Time Current Smoking Status Comment [facility] Sep 14, 2023 10:00 AM VA-TOBACCO USER EVERY DAY [facility] Tobacco Use History This section includes a history of the smoking, or tobacco-related health factors, that were collected on or before the date of the Encounter. The data comes from the [place] facility where the Encounter took place. Date/Time Smoking Status/Tobac co Use Comment Facility Sep 14, 2023 10:00 AM VA-TOBACCO USE 30 YEARS OR MORE [facility] [place] [place] [facility] Sep 14, 2023 10:00 AM VA-TOBACCO USE ADVICE [place] [facility] [place] [place] [facility] Sep 14, 2023 10:00 AM VA-TOBACCO USE SENIOR IT RECRUITER NO [facility] [place] [facility] Sep 14, 2023 10:00 AM VA-TOBACCO USE MED NO [place] [facility] [place] [facility] Sep 14, 2023 10:00 AM VA-TOBACCO USER EVERY DAY [facility] [place] [facility] Aug 02, 2022 01:11 PM VA-TOBACCO USE 30 YEARS OR MORE [facility] [place] [facility] Aug 02, 2022 01:11 PM VA-TOBACCO USE ADVICE [facility] [place] [facility] Aug 02, 2022 01:11 PM VA-TOBACCO USE SENIOR IT RECRUITER NO [facility] [place] [facility] Aug 02, 2022 01:11 PM VA-TOBACCO USE MED NO [facility] [place] [facility] Aug 02, 2022 01:11 PM VA-TOBACCO USE [place] 30 MIN OF WAKEUP [facility] [place] [facility] Aug 02, 2022 01:11 PM VA-TOBACCO USER EVERY DAY [facility] [place] [facility] Jul 28, 2021 11:21 AM VA-TOBACCO USE 30 YEARS OR MORE [facility] [place] [facility] Jul 28, 2021 11:21 AM VA-TOBACCO USE ADVICE [facility] [place] [facility] Jul 28, 2021 11:21 AM VA-TOBACCO USE SENIOR IT RECRUITER NO [facility] [facility] Jul 28, 2021 11:21 AM VA-TOBACCO USE MED NO [facility] [facility] Jul 28, 2021 11:21 AM VA-TOBACCO USE [place] 30 MIN OF WAKEUP [facility] [place] [facility] Jul 28, 2021 11:21 AM VA-TOBACCO USER EVERY DAY [facility] [facility] Jun 04, 2020 01:59 PM VA-TOBACCO USE 30 YEARS OR MORE [facility] [place] [facility] Jun 04, 2020 01:59 PM VA-TOBACCO USE ADVICE [facility] [place] [facility] Jun 04, 2020 01:59 PM VA-TOBACCO USE SENIOR IT RECRUITER NO [facility] [place] [facility] Jun 04, 2020 01:59 PM VA-TOBACCO USE MED NO [facility] [facility] Jun 04, 2020 01:59 PM VA-TOBACCO USE [place] 30 MIN OF WAKEUP [facility] [place] [facility] Jun 04, 2020 01:59 PM VA-TOBACCO USER EVERY DAY [facility] [place] [facility] Mar 30, 2016 10:35 AM CURRENT SMOKER smokes about 1 pack every 3 days for about 45 years [facility] Encounter Notes: All associated encounter notes This section contains the clinical notes associated to the Encounter. Date/Time Encounter Note(s) Provider Source Oct 21, 2023 11:52 AM ADDENDUM: LOCAL TITLE: Addendum STANDARD TITLE: ADDENDUM DATE OF NOTE: OCT 21, 2023@11:52:29 ENTRY DATE: OCT 21, 2023@11:52:30 AUTHOR: APRIL THOMAS EXP COSIGNER: URGENCY: STATUS: COMPLETED Adding AMSA to fax most recent lab results to the above number. /subhash/ APRIL THOMAS RN REGISTERED NURSE Signed: 10/21/2023 11:52 Receipt Acknowledged By: 10/21/2023 15:43 /es/ LM MORIN [employer] N[employer]ITION PROFESSOR === --- Original Document --- 10/21/23 CCC: SCHEDULING ADMINISTRATION: Patient Demographics Patient Name: KINJAL LAW Patient Primary Phone: [phone] Patient Primary Address: [address] [place] [id number] Patient : 1950 Patient Age: 73 Call Back Number: [phone] Caller/Recipient Relation to Patient: Other If Other Describe Relation to Patient: [facility] Caller Name: Corazon Administrative Administrative Note Reason: Lab / Imaging Results Administrative Note Comments: Corazon requesting to have 's most recent lab work sent to [phone] for patient's upcoming MRI on 10/24/23. /es/ FABIO TOBIN Signed: 10/21/2023 11:28 Receipt Acknowledged By: 10/21/2023 12:20 /es/ SE HAQ LPN LICENSED PRACTICAL NURSE 10/21/2023 11:53 /es/ APRIL THOMAS RN REGISTERED NURSE 10/21/2023 ADDENDUM STATUS: COMPLETED THIS CONDUIT HELPER FAXED LABS OVER TO [phone] /subhash/ LM MORIN [employer] NUTRITION PROFESSOR Signed: 10/21/2023 15:43 APRIL THOMAS [place] [facility] Oct 21, 2023 11:28 AM ADMINISTRATIVE NOTE: LOCAL TITLE: CCC: SCHEDULING ADMINISTRATION STANDARD TITLE: ADMINISTRATIVE NOTE DATE OF NOTE: OCT 21, 2023@11:28 ENTRY DATE: OCT 21, 2023@11:28 AUTHOR: FABIO TOBIN EXP COSIGNER: URGENCY: STATUS: COMPLETED CCC: SCHEDULING ADMINISTRATION Has ADDENDA Patient Demographics Patient Name: KINJAL LAW Patient Primary Phone: [phone] Patient Primary Address: [address] [place] [address] Patient : 1950 Patient Age: 73 Call Back Number: [phone] Caller/Recipient Relation to Patient: Other If Other Describe Relation to Patient: [facility] Caller Name: Corazon Administrative Administrative Note Reason: Lab / Imaging Results Administrative Note Comments: Corazon requesting to have 's most recent lab work sent to [phone] for patient's upcoming MRI on 10/24/23. /roxanna TOBIN Signed: 10/21/2023 11:28 Receipt Acknowledged By: 10/21/2023 12:20 /es/ SE HAQ LPN LICENSED PRACTICAL NURSE 10/21/2023 11:53 /subhash/ APRIL THOMAS RN REGISTERED NURSE 10/21/2023 ADDENDUM STATUS: COMPLETED Adding AMSA to fax most recent lab results to the above number. /subhash/ APRIL THOMAS RN REGISTERED NURSE Signed: 10/21/2023 11:52 Receipt Acknowledged By: 10/21/2023 15:43 /roxanna MORIN [employer]OD AND NUTRITION PROFESSOR 10/21/2023 ADDENDUM STATUS: COMPLETED THIS CONDUIT HELPER FAXED LABS OVER TO [phone] /roxanna MORIN ADVANCE FOOD AND NUTRITION PROFESSOR Signed: 10/21/2023 15:43 FABIO TOBINRAgustin [facility]N [facility]
--- OUTSIDE RECORDS SUMMARY | 2024-08-30 19:45 | XMS_ITS ---
Author Name [facility] [place] Organization [place] Address [address] [place] [address] Care Team Providers Care In Mold Coater Name Role Phone HOMAR JD Primary [...] PART A May 15, 2015 PART A [id number] KINJAL LAW SR PATIENT Selected Encounter This section includes the information on record at [place] for the Encounter. Date/Time Encounter Type Encounter Description Reason Provider Source Oct 14, 2023 10:45 AM EXTENSV ORAL EVAL PROB FOCUS DENTAL ICD-10-CM K03.81 Cracked tooth HALLEY MOYA Sari Encounter Template Text not used by [place] Assessments - Encounter Diagnoses This section includes the primary and secondary diagnoses documented for the Encounter. Date/Time Primary/Secondary Diagnosis Diagnosis Name Provider Source Oct 14, 2023 10:16 AM PRIMARY Cracked tooth HALLEY MOYA [facility] Oct 14, 2023 10:16 AM SECONDARY Dental caries on smooth surface penetrating into dentin HALLEY MOYA [facility] Plan of Treatment: Future Appointments (+ 6 months) and Future Tests (+/- 45 days) The Plan of Treatment section includes future care activities for the patient from all [place] [facility]. This section includes future appointments and future orders which are active, pending or scheduled. Future Appointments This section includes appointments that were scheduled to occur 6 months from the date of the Encounter, up to a maximum of 20 appointments. The data comes from all [place] treatment facilities. Appointment Date/Time Appointment Type Appointme nt Facility Name Oct 31, 2023 11:30 AM AMBULATORY - MEDICINE [place] [facility] December 20, 2023 09:45 AM AMBULATORY MEDICINE [place] [facility] Feb 24, 2024 09:00 AM AMBULATORY MEDICINE [place] [facility] Mar 07, 2024 09:00 AM AMBULATORY - MEDICINE SPR[facility] Mar 09, 2024 09:00 AM [facility] Mar 09, 2024 09:15 AM AMBULATORY - MEDICINE [facility] Mar 14, 2024 10:00 AM AMBULATORY - MEDICINE [place] [facility] Mar 29, 2024 02:30 PM AMBULATORY - MEDICINE [place] [facility] Lab Results: +/- 30 days of the encounter This section includes the Chemistry and Hematology Lab Results on record with [place] for the patient. Radiology Reports and Pathology Reports are provided separately, in subsequent sections. Lab Results This section contains the Chemistry/Hematology Results that were resulted 30 days before or 30 daysafter the date of the Encounter. Date/Time Source Result Type Result - Unit Interpretation Reference Range Comment Oct 17, 2023 11:12 AM [facility] HEMOGLOBIN A1C PANEL Specimen Type: BLOOD [...] Sep 07, 2023 09:48 AM Reporting Lab: [facility] [address] [address] Performing Lab: [place] [facility] [address] [address] HEMOGLOBIN A1C 6.1 H 4.0-5.6 Oct 17, 2023 11:12 AM [facility] TSH Specimen Type: SERUM No comment entered. Ordering Provider: EMANUEL MATTHEWS Report Released Date/Time: Sep 07, 2023 09:48 AM Reporting Lab: [facility] [address] [address] Performing Lab: [facility] [address] [address] TSH 1.81 u[IU]/mL 0.35-5.00 Oct 17, 2023 11:12 AM [facility] LIPID PANEL FASTING Specimen Type: SERUM No comment entered. Ordering Provider: EMANUEL MATTHEWS Report Released Date/Time: Sep 07, 2023 09:48 AM Reporting Lab: [facility] [address] [address] Performing Lab: [facility] [address] [address] CHOLESTEROL 161 mg/dL TRIGLYCERIDE 205 mg/dL H 0-150 LDL calculated 84 mg/dL 0-129 CHOL/HDL 4.5 HDL CHOLESTEROL 36 mg/dL L 40-60 Oct 17, 2023 11:12 AM [facility] LIVER FUNCTION Specimen Type: SERUM No comment entered. Ordering Provider: EMANUEL MATTHEWS Report Released Date/Time: Sep 07, 2023 09:48 AM Reporting Lab: [facility] [address] [address] Performing Lab: [facility] [address] PROTEIN,TOTAL 6.4 g/dL 6.0-8.3 ALBUMIN 3.5 g/dL 3.5-5.0 ALKALINE PHOSPHATASE 69 U/L 40-150 AST 14 U/L 5-34 ALT 17 U/L BILIRUBIN, TOTAL 0.4 mg/dL 0.2-1.2 Oct 17, 2023 11:12 AM [facility] BASIC METABOLIC PANEL (fasting) Specimen Type: SERUM No comment entered. Ordering Provider: EMANUEL MATTHEWS Report Released Date/Time: Sep 07, 2023 09:48 AM Reporting Lab: [address] [address] Performing Lab: [address] [address] UREA NITROGEN 26 mg/dL H 7-25 GLUCOSE 84 mg/dL 65-100 SODIUM 139 mmol/L 135-145 POTASSIUM 4.8 mmol/L 3.5-5.0 CHLORIDE 109 mmol/L 100-110 CO2 23 meq/L 20-30 CREATININE, Serum 1.68 mg/dL H 0.50-1.40 eGFR(CKD-EPI 2020) 42 mL/min L >60 Oct 17, 2023 11:12 AM [facility] PSA Specimen Type: SERUM No comment entered. Ordering Provider: EMANUEL MATTHEWS Report Released Date/Time: Sep 07, 2023 09:48 AM Reporting Lab: [facility] [address] [address] Performing Lab: [address] [address] PSA 0.29 ng/mL 0.00-4.00 Oct 17, 2023 11:12 AM [facility] CBC AND DIFF (AUTO) Specimen Type: BLOOD No comment entered. Ordering Provider: EMANUEL MATTHEWS Report Released Date/Time: Sep 07, 2023 09:48 AM Reporting Lab: [facility] [address] [address] Performing Lab: [address] [address] WBC 4.23 10*3/uL L 4.50-11.00 RBC 4.19 10*6/uL L 4.23-5.66 HGB 12.5 g/dL L 12.8-17 HCT 38.3 L 39.2-50.4 MCV 91.4 fL 82-99 MCHC 32.6 g/dL 30.8-35.1 PLT 167 10*3/uL 140-360 RDW-CV 16.7 H 12.0-16.0 Fisher, Abs 0.61 10*3/uL 0.30-1.10 MCH 29.8 pg 26.2-32.6 Neut % 57.3 43.7-75.8 Lymph % 20.3 14.0-42.3 Fisher % 14.4 H 5.1-13.7 Eos % 7.1 [...] and tobacco- related health factors from the [place] facility where the Encounter took place. Current Smoking Status This section includes the most current smoking, or tobacco-related health factor, from the [place] facility where the Encounter took place. Date/Time Current Smoking Status Comment [facility] Sep 14, 2023 10:00 AM VA-TOBACCO USER EVERY DAY [facility] Tobacco Use History This section includes a history of the smoking, or tobacco-related health factors, that were collected on or before the date of the Encounter. The data comes from the [place] facility where the Encounter took place. Date/Time Smoking Status/Tobac co Use Comment Facility Sep 14, 2023 10:00 AM VA-TOBACCO USE 30 YEARS OR MORE [facility] Sep 14, 2023 10:00 AM VA-TOBACCO USE ADVICE [facility] [place] [facility] Sep 14, 2023 10:00 AM VA-TOBACCO USE RESEARCH PROGRAMMER NO [facility] [place] [facility] Sep 14, 2023 10:00 AM VA-TOBACCO USE MED NO [facility] [place] [facility] Sep 14, 2023 10:00 AM VA-TOBACCO USER EVERY DAY [facility] [place] [facility] Aug 02, 2022 01:11 PM VA-TOBACCO USE 30 YEARS OR MORE [facility] [place] [facility] Aug 02, 2022 01:11 PM VA-TOBACCO USE ADVICE [facility] [place] [facility] Aug 02, 2022 01:11 PM VA-TOBACCO USE RESEARCH PROGRAMMER NO [facility] [place] [facility] Aug 02, 2022 01:11 PM VA-TOBACCO USE MED NO [facility] [place] [facility] Aug 02, 2022 01:11 PM VA-TOBACCO USE [place] 30 MIN OF WAKEUP [facility] [place] [facility] Aug 02, 2022 01:11 PM VA-TOBACCO USER EVERY DAY [facility] [place] [facility] Jul 28, 2021 11:21 AM VA-TOBACCO USE 30 YEARS OR MORE [facility] [place] [facility] Jul 28, 2021 11:21 AM VA-TOBACCO USE ADVICE [facility] [place] [facility] Jul 28, 2021 11:21 AM VA-TOBACCO USE RESEARCH PROGRAMMER NO [facility] [place] [facility] Jul 28, 2021 11:21 AM VA-TOBACCO USE MED NO [facility] [place] [facility] Jul 28, 2021 11:21 AM VA-TOBACCO USE [place] 30 MIN OF WAKEUP [facility] [place] [facility] Jul 28, 2021 11:21 AM VA-TOBACCO USER EVERY DAY [facility] [place] [facility] Jun 04, 2020 01:59 PM VA-TOBACCO USE 30 YEARS OR MORE [facility] [place] [facility] Jun 04, 2020 01:59 PM VA-TOBACCO USE ADVICE [facility] [place] [facility] Jun 04, 2020 01:59 PM VA-TOBACCO USE RESEARCH PROGRAMMER NO [facility] [place] [facility] Jun 04, 2020 01:59 PM VA-TOBACCO USE MED NO [facility] Jun 04, 2020 01:59 PM VA-TOBACCO USE [place] 30 MIN OF WAKEUP [facility] Jun 04, 2020 01:59 PM VA-TOBACCO USER EVERY DAY [facility] Mar 30, 2016 10:35 AM CURRENT SMOKER smokes about 1 pack every 3 days for about 45 years [facility] Radiology Reports: +/- 30 days of the [...] the Encounter. The data comes from all [place] treatment facilities. Date/Time Radiology Report Provider Source Sep 14, 2023 09:[address] PULMONARY NODULES W/O CONTRAST: THANHKINJAL [id number] -1950 M Exm Date: SEP 14, 2023@09:21 Req Phys: EMANUEL MATTHEWS Loc: CWM/SO/PACT 4 (Req'g Loc) Img Loc: [facility]/CT Service: Unknown (Case [id number] COMPLETE) CT THORAX W/O CONT (CT Detailed) CPT:13824 Reason for Study: f/u cat scan in 20+pack year smoker (Case [id number] COMPLETE) CT ABDOMEN W/O CONT (CT Detailed) CPT:37695 Clinical History: 1. Multifocal cystic lesions in the liver, enlarged compared to 11/11/2016. 2. The previously described sclerotic lesion within the T3 vertebral body is unchanged, likely benign. 3. Mild cardiomegaly. 4. No new or suspicious pulmonary nodule. Report Status: Verified Date Reported: SEP 14, 2023 Date Verified: SEP 14, 2023 Thermite Welder E-Sig:/ES/LEONILA HOGUE JR Report: Study: Noncontrast CT [...] Primary Interpreting Staff: LEONILA HOGUE JR, Radiologist (Thermite Welder) /LEONILA TIJERINA JR [facility] Encounter Notes: All associated encounter notes This section contains the clinical notes associated to the Encounter. Date/Time Encounter Note(s) Provider Source Oct 14, 2023 10:16 AM DENTISTRY NOTE: LOCAL TITLE: DENTAL NOTE STANDARD TITLE: DENTISTRY NOTE DATE OF NOTE: OCT 14, 2023@10:16 ENTRY DATE: OCT 14, 2023@10:16:25 AUTHOR: HALLEY MOYA COSIGNER: URGENCY: STATUS: COMPLETED Patient Name: KINJAL LAW, : 1950, Age: 73 Visit: S: Oct 14, 2023@10:45 CWM/NO/DENTAL/DMD3 AM. Primary PCE Diagnosis: K03.81 (Cracked tooth). Dental Category: 15-OPC, Class IV. Treatment Status: Maintenance. Completed Care: (D2335) RESIN 4/> SURF OR W INCIS AN. Tooth: 22. Surface(s): DIFL. DX: K03.81 Cracked Tooth (D2335) RESIN 4/> SURF OR W INCIS AN. Tooth: 25. Surface(s): MIFDL. DX: K03.81 Cracked Tooth (D2335) RESIN 4/> SURF OR W INCIS AN. Tooth: 26. Surface(s): MIFL. DX: K03.81 Cracked Tooth (D2335) RESIN 4/> SURF OR W INCIS AN. Tooth: 27. Surface(s): DIFL. DX: K03.81 Cracked Tooth (D1206) TOPICAL FLUORIDE VARNISH. DX: K02.62 Dental Caries on Smooth Surface Penetrating into Dentin (D0160) EXTENSV ORAL EVAL PROB FOCUS. DX: K03.81 Cracked Tooth The patient was identified by full name and social security number Reviewed the patient's medical/dental history, medications and allergies. I performed medication reconciliation within the scope of my practice. All medications related to dentistry are up to date. Discussed above proposed treatment plan. Patient understands and agrees with the treatment plan. Presentation/Chief Complaint: Patient presents for detailed focused oral evaluation I have multiple broken teeth Vital Signs: Vital signs not obtained Past Medical History and Medications: No significant changes since the last dental visit Oral Examination: Other: Patient elected to be referred to community care due to the wait time. Patient lower cracked teeth will be restored. The upper broken teeth presented with deep decay and no symptom, will let community care dentist for treatment plan. Topical fluoride applied to reduce the sensitivity and prevent caries. Tooth Mobility Not Assessed Assessment/Plan: No contraindications for planned procedure(s). Reviewed risks/benefits/alternatives associated with the proposed treatment plan. Patient agrees to treatment plan as discussed. Disposition: No follow up appointment indicated Patient provided instructions for obtaining fee dental care subject to [place] authorization of proposed treatment plan. - - - - - - - - - - - - - - - - - - - - - - - - - - - - - - /subhash/ HALLEY MOYA DMD Staff Dentist Signed: 10/14/2023 10:16 HAL[facility] MO[facility]
--- OUTSIDE RECORDS SUMMARY | 2024-08-30 19:45 | XMS_ITS ---
Author Name [facility] [place] Address [address] [place] [address] Care Team Providers Care Web Operations Administrator Name Role Phone HOMAR JD Primary [...] PART A May 15, 2015 PART A [id number] KINJAL LAW SR PATIENT Selected Encounter This section includes the information on record at [place] for the Encounter. Date/Time Encounter Type Encounter Description Reason Pro vider Source December 20, 2023 12:00 PM Outpatient Encounter COMMUNITY CARE [...] 20 appointments. The data comes from all [place] treatment facilities. Appointment Date/Time Appointment Type Appointme nt Facility Name Feb 24, 2024 09:00 AM AMBULATORY - MEDICINE [place] [facility] Mar 07, 2024 09:00 AM [facility] Mar 09, 2024 09:00 AM [facility] Mar 09, 2024 09:15 AM [facility]BULATORY - MEDICINE SPR[facility] Mar 14, 2024 10:00 AM AMBULATORY - MEDICINE [place] [facility] Mar 29, 2024 02:30 PM AMBULATORY - MEDICINE [place] [facility] Apr 17, 2024 02:30 PM AMBULATORY - MEDICINE [place] [facility] Apr 25, 2024 11:15 AM AMBULATORY - MEDICINE [place] [facility] Jun 11, 2024 01:00 PM AMBULATORY - NONE [place] [facility] Jun 20, 2024 02:00 PM AMBULATORY - MEDICINE SPRI [facility] Active, Pending, and Scheduled Orders This section includes a listing of several types of active, pending, and scheduled orders, including clinic medications orders, diagnostic test orders, procedure orders and consult orders; where the start date of the order is 45 days before the date of the Encounter or 45 days after the date of theEncounter. The data comes from all [facility]. Test Date/Time Test Type Test Details Facility Name December 22, 2023 09:11 AM Consult Order COMMUNITY CARE-DENTAL GENERAL Cons Corporate Director's Choice [facility] Social History: Smoking Status (Most current) and Tobacco Use (All prior to encounter date) This section includes the most current, and the historical, smoking and tobacco- related health factors from the [place] facility where the Encounter took place. Current Smoking Status This section includes the most current smoking, or tobacco-related health factor, from the [place] facility where the Encounter took place. Date/Time Current Smoking Status Halie vinson Sep 14, 2023 10:00 AM VA-TOBACCO USER EVERY DAY [facility] Tobacco Use History This section includes a history of the smoking, or tobacco-related health factors, that were collected on or before the date of the Encounter. The data comes from the [facility] where the Encounter took place. 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 [facility] [place] [facility] Sep 14, 2023 10:00 AM VA-TOBACCO USE MED NO [facility] [place] [facility] Sep 14, 2023 10:00 AM VA-TOBACCO USER EVERY DAY [facility] [place] [facility] Aug 02, 2022 01:11 PM VA-TOBACCO USE 30 YEARS OR MORE [facility] [place] [facility] Aug 02, 2022 01:11 PM VA-TOBACCO USE ADVICE [facility] [place] [facility] Aug 02, 2022 01:11 PM 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 [facility] [facility] Aug 02, 2022 01:11 PM VA-TOBACCO USE MED NO [facility] [place] [facility] Aug 02, 2022 01:11 PM VA-TOBACCO USE [place] 30 MIN OF WAKEUP [facility] [place] [facility] Aug 02, 2022 01:11 PM VA-TOBACCO USER EVERY DAY [facility] [facility] Jul 28, 2021 11:21 AM VA-TOBACCO USE 30 YEARS OR MORE [facility] [place] [facility] Jul 28, 2021 11:21 AM VA-TOBACCO USE ADVICE [facility] [place] [facility] Jul 28, 2021 11:21 AM 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 [facility] [place] [facility] Jul 28, 2021 11:21 AM VA-TOBACCO USE MED NO [facility] [place] [facility] Jul 28, 2021 11:21 AM VA-TOBACCO USE [place] 30 MIN OF WAKEUP [facility] [place] [facility] Jul 28, 2021 11:21 AM VA-TOBACCO USER EVERY DAY [facility] [place] [facility] Jun 04, 2020 01:59 PM VA-TOBACCO USE 30 YEARS OR MORE [facility] Jun 04, 2020 01:59 PM VA-TOBACCO USE ADVICE [facility] Jun 04, 2020 01:59 PM 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 [facility] Jun 04, 2020 01:59 PM VA-TOBACCO USE MED NO [facility] Jun 04, 2020 01:59 PM VA-TOBACCO USE [place] 30 MIN OF WAKEUP [facility] Jun 04, 2020 01:59 PM VA-TOBACCO USER EVERY DAY [facility] Mar 30, 2016 10:35 AM CURRENT SMOKER smokes about 1 pack every 3 days for about 45 years [facility] Encounter Notes: All associated encounter notes This section contains the clinical notes associated to the Encounter. Date/Time Encounter Note(s) Provider Source December 20, 2023 12:00 PM NONVA CONSULT: LOCAL TITLE: COMMUNITY CARE-CONSULT RESULT NOTE STANDARD TITLE: NONVA CONSULT DATE OF NOTE: DECEMBER 20, 2023@12:00 ENTRY DATE: JANUARY 03, 2024@10:09:05 AUTHOR: ROBB VITALE EXP COSIGNER: URGENCY: STATUS: COMPLETED VistA Imaging - Scanned Document +FELIX DMD-OFFICE NOTES SCANNED DOCUMENT SIGNATURE NOT REQUIRED Electronically Filed: 01/03/2024 by: ROBB VITALE HOUSE WRECKER ROBB VITALE [facility]
--- OUTSIDE RECORDS SUMMARY | 2024-08-30 19:45 | XMS_ITS | Encounter Summary ---
Author Name [facility] [place] [facility] [place] [facility] [place] Address [address] [place] [address] Care Team Providers Care Lap Cutter Truer Operator Name Role Phone JD GRAF Primary Care [...] PART A May 15, 2015 PART A [id number] 00A KINJAL LAW SR PATIENT Selected Encounter This section includes the information on record at [place] for the Encounter. Date/Time Encounter Type Encounter Description Reason Pro vider Source Jan 27, 2024 10:22 AM Outpatient Encounter OPTOMETRY IHE Encounter Template [...] - MEDICINE [place] [facility] [place] [facility] Mar 07, 2024 09:00 AM [facility]ORY [place] Mar 09, 2024 09:00 AM [facility] - [facility]IC[place] Mar 09, 2024 09:15 AM [facility] - [place]IC[place] Mar 14, 2024 10:00 AM AMBULATORY - MEDICINE [place] [facility] [place] [facility] Mar 29, 2024 02:30 PM AMBULATORY - MEDICINE [place] [facility] [place] [facility] Apr 17, 2024 02:30 PM AMBULATORY - MEDICINE [place] [facility] [place] [facility] Apr 25, 2024 11:15 AM AMBULATORY - MEDICINE [place] [facility] [place] [facility] Jun 11, 2024 01:00 PM AMBUL[facility]ORY - NONE [place] [facility] [place] Jun 20, 2024 02:00 PM [facility] Active, Pending, and Scheduled Orders This section includes a listing of several types of active, pending, and scheduled orders, including clinic medications orders, diagnostic test orders, procedure orders and consult orders; where the start date of the order is 45 days before the date of the Encounter or 45 days after the date of theEncounter. The data comes from all [facility] Test Date/Time Test Type Test Details Facility Name December 22, 2023 09:11 AM Consult Order COMMUNITY CARE-DENTAL GENERAL Cons Payroll Specialist's Choice [facility] Social History: Smoking Status (Most current) [...] Davey vinson Sep 14, 2023 10:00 AM [place]-TOBACCO DOESNT USE WI 30 MIN WAKEUP [facility] Tobacco Use History This section includes a history of the smoking, or tobacco-related health factors, that were collected on or before the date of the Encounter. The data comes from the [facility] where the Encounter took place. 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 [place] [facility] [place] [facility] Sep 14, 2023 10:00 AM VA-TOBACCO USE MED NO [place] [facility] [place] [facility] Sep 14, 2023 10:00 AM VA-TOBACCO USER EVERY DAY [facility] [place] [facility] Aug 02, 2022 01:11 PM VA-TOBACCO USE 30 YEARS OR MORE [facility] [place] [facility] Aug 02, 2022 01:11 PM VA-TOBACCO USE ADVICE [place] [facility] [place] [facility] Aug 02, 2022 01:11 PM 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 [facility] [place] [facility] Aug 02, 2022 01:11 PM VA-TOBACCO USE MED NO [facility] [place] [facility] Aug 02, 2022 01:11 PM VA-TOBACCO USE WI 30 MIN OF WAKEUP [facility] [place] [facility] Aug 02, 2022 01:11 PM VA-TOBACCO USER EVERY DAY [facility] [place] [facility] Jul 28, 2021 11:21 AM VA-TOBACCO USE 30 YEARS OR MORE [facility] [place] [facility] Jul 28, 2021 11:21 AM VA-TOBACCO USE ADVICE [facility] [facility] Jul 28, 2021 11:21 AM 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 [facility] [place] [facility] Jul 28, 2021 11:21 AM VA-TOBACCO USE MED NO [facility] [place] [facility] Jul 28, 2021 11:21 AM VA-TOBACCO USE WI 30 MIN OF WAKEUP [facility] [place] [facility] Jul 28, 2021 11:21 AM VA-TOBACCO USER EVERY DAY [facility] [facility] Jun 04, 2020 01:59 PM VA-TOBACCO USE 30 YEARS OR MORE [place] [facility] [place] [facility] Jun 04, 2020 01:59 PM VA-TOBACCO USE ADVICE [facility] [facility] Jun 04, 2020 01:59 PM 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 [place] Encounter Notes: All associated encounter notes This section contains the clinical notes associated to the Encounter. Date/Time Encounter Note(s) Provider Source Jan 27, 2024 10:22 AM TELEPHONE ENCOUNTE R NOTE: LOCAL TITLE: TELEPHONE NOTE/SPECIALTY CLINIC STANDARD TITLE: TELEPHONE ENCOUNTER NOTE DATE OF NOTE: JAN 27, 2024@10:22 ENTRY DATE: JAN 27, 2024@10:23:01 AUTHOR: MARY GILES EXP COSIGNER: URGENCY: STATUS: COMPLETED TELEPHONE NOTE/SPECIALTY CLINIC Has ADDENDA called and is requesting a replacement pair of glasses. address and phone confirmed correct. Same as the last pair would be great /subhash/ MARY GILES ELECTRIC METER INSTALLER HELPER Signed: 01/27/2024 10:23 Receipt Acknowledged By: 01/27/2024 10:36 /subhash/ CHAUNCEY GRAHAM OPTOMETRY TECH 01/27/2024 12:43 /subhash/ SUKHI VACA [facility] TECHINICIAN 01/27/2024 11:06 /subhash/ Dannielle Dempsey [facility] 01/27/2024 ADDENDUM STATUS: COMPLETED I called patient and he says frame is in bad shape, but lenses are also scratched. Ordered 1-time replacement pair /roxanna GRAHAM OPTOMETRY TECH Signed: 01/27/2024 10:35 MARY GILES [facility]
--- OUTSIDE RECORDS SUMMARY | 2024-08-30 19:45 | XMS_ITS | Encounter Summary ---
Author Name [facility] [place] [facility] [place] [facility] [place] Address [address] [place] [address] Care Team Providers Care Senior Professional Services Consultant Name Role Phone HOMARJD FIELD Primary Care [...] PART A May 15, 2015 PART A [id number] 00A KINJAL LAW SR PATIENT Selected Encounter This section includes the information on record at [place] for the Encounter. Date/Time Encounter Type Encounter Description Reason Pro vider Source Sep 14, 2023 02:49 PM Outpatient Encounter PRIMARY CARE/MEDICINE IHE Encounter Template Text not used by [place] Plan of Treatment: Future Appointments (+ 6 [...] Appointment Type Appointme nt Facility Name Oct 10, 2023 09:15 AM AMBULATORY [place]ICINE [place] [facility] Oct 14, 2023 10:45 AM AMBULATORY - NONE [place] [facility] Oct 31, 2023 11:30 AM AMBULATORY - [place]ICINE [place] [facility] December 20, 2023 09:45 AM AMBULATORY - MEDICINE [place] [facility] Feb 24, 2024 09:00 AM AMBULATORY - MEDICINE [place] [facility] Mar 07, 2024 09:00 AM [facility] Mar 09, 2024 09:00 AM [facility] Mar 09, 2024 09:15 AM [facility] Mar 14, 2024 10:00 AM [place] [facility] Lab Results: +/- 30 days of the encounter This section includes the Chemistry and Hematology Lab Results on record with [place] for the patient. Radiology Reports and Pathology Reports are provided separately, in subsequent sections. Lab Results This section contains the Chemistry/Hematology Results that were resulted 30 days before or 30 daysafter the date of the Encounter. Date/Time Source Result Type Result - Unit Interpretation Reference Range Comment Sep 07, 2023 09:47 AM [place] CREATININE (eGFR 2020) Specimen Type: SERUM No comment entered. Ordering Provider: EMANUEL MATTHEWS Report Released Date/Time: Sep 07, 2023 09:45 AM Reporting Lab: [place] [facility] [address] [id number] Performing Lab: [facility] [address] CREATININE, Serum 1.41 mg/dL H 0.50-1.40 eGFR(CKD-EPI 2020) 52 mL/min L >60 Sep 07, 2023 09:47 AM [facility] UREA NITROGEN Specimen Type: SERUM No comment entered. Ordering Provider: EMANUEL MATTHEWS Report Released Date/Time: Sep 07, 2023 09:45 AM Reporting Lab: [place] [facility] [address] [address] Performing Lab: [place] [facility] [address] [address] UREA NITROGEN 19 mg/dL 7-25 Social History: Smoking Status (Most current) and [...] took place. Date/Time Current Smoking Status Comment [facility] Sep 14, 2023 10:00 AM VA-TOBACCO USER EVERY DAY [place] [facility] Tobacco Use History This section includes a history of the smoking, or tobacco-related health factors, that were collected on or before the date of the Encounter. The data comes from the [place] facility where the Encounter took place. 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 [place] [facility] [place] [facility] Sep 14, 2023 10:00 AM VA-TOBACCO USE MED NO [place] [facility] [place] [facility] Sep 14, 2023 10:00 AM VA-TOBACCO USER EVERY DAY [place] [facility] [place] [facility] Aug 02, 2022 01:11 PM VA-TOBACCO USE 30 YEARS OR MORE [place] [facility] [place] [facility] Aug 02, 2022 01:11 PM VA-TOBACCO USE ADVICE [place] [facility] [place] [facility] Aug 02, 2022 01:11 PM VA-TOBACCO USE MEDICAL SERVICE TECHNICIAN NO [place] [facility] [place] [facility] Aug 02, 2022 01:11 PM VA-TOBACCO USE MED NO [place] [facility] [place] [facility] Aug 02, 2022 01:11 PM VA-TOBACCO USE [place] 30 MIN OF WAKEUP [place] [facility] [place] [facility] Aug 02, 2022 01:11 PM VA-TOBACCO USER EVERY DAY [place] [facility] [place] [facility] Jul 28, 2021 11:21 AM VA-TOBACCO USE 30 YEARS OR MORE [place] [facility] [place] [facility] Jul 28, 2021 11:21 AM VA-TOBACCO USE ADVICE [place] [facility] [place] [facility] Jul 28, 2021 11:21 AM VA-TOBACCO USE 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 SERVICE TECHNICIAN NO [place] [facility] [place] [facility] Jul 28, 2021 11:21 AM VA-TOBACCO USE MED NO [place] [facility] [place] [facility] Jul 28, 2021 11:21 AM VA-TOBACCO USE [place] 30 MIN OF WAKEUP [place] [facility] [place] [facility] Jul 28, 2021 11:21 AM VA-TOBACCO USER EVERY DAY [place] [facility] [place] [facility] Jun 04, 2020 01:59 PM VA-TOBACCO USE 30 YEARS OR MORE [place] [facility] [place] [facility] Jun 04, 2020 01:59 PM VA-TOBACCO USE ADVICE [place] [facility] [place] [facility] Jun 04, 2020 01:59 PM VA-TOBACCO USE MEDICAL SERVICE TECHNICIAN NO [place] [facility] [place] [facility] Jun 04, 2020 01:59 PM VA-TOBACCO USE MED NO [place] [facility] [place] [facility] Jun 04, 2020 01:59 PM VA-TOBACCO USE WI 30 MIN OF WAKEUP [place] [facility] [place] [facility] Jun 04, 2020 01:59 PM VA-TOBACCO USER EVERY DAY [place] [facility] [place] [facility] Mar 30, 2016 10:35 AM CURRENT SMOKER smokes about 1 pack every 3 days for about 45 years [place] [facility] Radiology Reports: +/- 30 days of the [...] the Encounter. The data comes from all [place] treatment facilities. Date/Time Radiology Report Provider Source Sep 14, 2023 09:[address] PULMONARY NODULES W/O CONTRAST: KINJAL LAW [id number] -1950 M Exm Date: SEP 14, 2023@09:21 Req Phys: CASSIEEMANUEL Pat Loc: CWM/SO/PACT 4 (Req'g Loc) Img Loc: [facility]/CT Service: Unknown (Case [id number] COMPLETE) CT THORAX W/O CONT (CT Detailed) CPT:14195 Reason for Study: f/u cat scan in 20+pack year smoker (Case 274 COMPLETE) CT ABDOMEN W/O CONT (CT Detailed) CPT:09609 Clinical History: 1. Multifocal cystic lesions in the liver, enlarged compared to 11/11/2016. 2. The previously described sclerotic lesion within the T3 vertebral body is unchanged, likely benign. 3. Mild cardiomegaly. 4. No new or suspicious pulmonary nodule. Report Status: Verified Date Reported: SEP 14, 2023 Date Verified: SEP 14, 2023 Acetylene Cutter E-Sig:/ES/LEONILA HOGUE JR Report: Study: Noncontrast CT [...] Primary Interpreting Staff: LEONILA HOGUE JR, Radiologist (Acetylene Cutter) /LEONILA TIJERINA JR [facility] Encounter Notes: All associated encounter notes This section contains the clinical notes associated to the Encounter. Date/Time Encounter Note(s) Provider Source Sep 15, 2023 09:25 AM ADDENDUM: LOCAL TITLE: Addendum STANDARD TITLE: ADDENDUM DATE OF NOTE: SEP 15, 2023@09:25:48 ENTRY DATE: SEP 15, 2023@09:25:49 AUTHOR: SE HAQ EXP COSIGNER: URGENCY: STATUS: COMPLETED Will include PCP in above. /subhash/ SE HAQ LPN LICENSED PRACTICAL NURSE Signed: 09/15/2023 09:26 Receipt Acknowledged By: 09/16/2023 18:32 /subhash/ Emanuel Matthews M.D. 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 He states he takes Dayquil/Nyquil with some relief. Has increased fluid intake, decreased the amount he is smoking d/t coughing. Recommended be seen in an urgent care to have cough evaluated, Mumtaz states by the time he does that the cough goes away. Recommended Vetean be seen in ED if symptoms get worse, ie SOB, CP, palpitationa nd dizzyness. Vetera understands and agrees with recommendations. /roxanna THOMAS RN REGISTERED NURSE Signed: 09/16/2023 10:14 SE HAQ GEOVANNI [facility] Sep 14, 2023 02:49 PM ADMINISTRATIVE NOT E: LOCAL TITLE: ADMINISTRATIVE NOTE STANDARD TITLE: ADMINISTRATIVE NOTE DATE OF NOTE: SEP 14, 2023@14:49 ENTRY DATE: SEP 14, 2023@14:49:56 AUTHOR: LM MORIN EXP COSIGNER: URGENCY: STATUS: COMPLETED ADMINISTRATIVE NOTE Has ADDENDA THIS CONCRETE PRODUCTS DISPATCHER SPOKE w/ TO RE-SCHEDULE THE 11/29/23 AND ASK TO HAVE A CALL BACK FROM THE TEAM HE HAS BEEN COUGHING UP PHLEGM DARK YELLOW/BLACKISH PLEASE CALL BACK TO ADVISE /roxanna MORIN ADVANCE CASHIER TICKET SELLING Signed: 09/14/2023 14:52 Receipt Acknowledged By: 09/15/2023 09:25 /roxanna HAQ LPN LICENSED PRACTICAL NURSE 09/16/2023 10:07 /roxanna THOMAS RN REGISTERED NURSE 09/15/2023 ADDENDUM STATUS: COMPLETED Will include PCP in above. /roxanna HAQ LPN LICENSED PRACTICAL NURSE Signed: 09/15/2023 09:26 Receipt Acknowledged By: * AWAITING SIGNATURE * EMANUEL MATTHEWS 09/16/2023 ADDENDUM STATUS: COMPLETED [facility] He states he takes Dayquil/Nyquil with some relief. Has increased fluid intake, decreased the amount he is smoking d/t coughing. Recommended Toxey be seen in an urgent care to have cough evaluated, Vetean states by the time he does that the cough goes away. Recommended Vetean be seen in ED if symptoms get worse, ie SOB, CP, palpitationa nd dizzyness. Vetera understands and agrees with recommendations. /es/ APRIL THOMAS RN REGISTERED NURSE Signed: 09/16/2023 10:14 LM MORIN
== END 2024-08-30 14:52 | disposition home or self-care (01) ==
PROVIDERS: Emergency Provider Emergency Medicine
DX: S39.012A Strain of muscle, fascia and tendon of lower back, initial encounter (principal); M54.6 Pain in thoracic spine; V43.62XA Car passenger injured in collision with other type car in traffic accident, initial encounter; Y93.9 Activity, unspecified; Y92.488 Other paved roadways as the place of occurrence of the external cause; Y99.8 Other external cause status
CPT/HCPCS: 72072; 72100; 99283

== ENCOUNTER → 2024-08-30 12:49 | Outpatient (BNV) | payer OTHER, SELFPAY | PROVIDERS: Visit Provider Radiology Diagnostic Radiology | DX: M54.50 Low back pain, unspecified (principal); Z04.3 Encounter for examination and observation following other accident | CPT/HCPCS: 72072; 72100 ==

== ENCOUNTER 2024-09-25 09:14 | Outpatient (REF) | payer OTHER, SELFPAY ==
[2024-09-25 12:50] LABS: Anion Gap 10 (12-20); Blood Urea Nitrogen 25 mg/dL (9-16); Calcium 9.4 mg/dL (8.4-10.2); Carbon Dioxide 23 mmol/L (22-29); Chloride 113 mmol/L (96-108); Estimated Glomerular Filt Rate 54; Glucose Random 94 mg/dL (60-115); Potassium 4.5 mmol/L (3.3-5.1); Sodium 141 mmol/L (135-145)
== END 2024-09-25 09:15 | disposition home or self-care (01) ==
LOC: HO.LAB 09:14
PROVIDERS: Urology; Absent Provider Nurse Practitioner Family; Visit Provider Internal Medicine Cardiovascular Disease
DX: C61 Malignant neoplasm of prostate (principal); I47.29 Other ventricular tachycardia; Z12.5 Encounter for screening for malignant neoplasm of prostate
CPT/HCPCS: 36415; 80048; 84153

== ENCOUNTER 2024-09-28 08:20 | Outpatient (AMB) | payer OTHER, SELFPAY ==
--- NOTE | 2024-09-28 08:48 | MHC.OFFVIS ---
Intake Visit Reasons: 6M PSA/PVR(set) Intake Note: Patient is present for 6M PSA/PVR Urology Medication:MIRABEGRON,ALLOPURINOL Antibiotic Allergy:NONE Blood Thinner:APIXABAN Last PVR:78ML'S Todays PVR:10ML'S Bowl Attendant Required: No Allergies No Known Allergies [No Known Allergies*] Allergy (Verified 09/28/24 08:53) HPI Comments Details: Carlos Enrique is a pleasant male. He is a patient of Dr. Poole. He is seen for the following urologic conditions - prostate cancer - radiation cystitis Off bladder stability medications Waking 2 times at night Minimal urge Did have some blood per rectum but that was secondary to constipation. No using MiraLax and things have resolved PSA 02/03 0.2, 11/04 0.26, 04/07 0.3, 10/09 0.3 Radiation cystitis Presentation with intermittent hematuria Failed oxybutynin previously Prostate cancer - grade group 4 EXBRT [address] Gan PSA 11.2 Initial biopsy demonstrated [place] 6, 7, 8 and 9 Underwent external beam radiation at [facility] with 18 months GnRH hormones Imaging - initial bone scan and CT scan showed no steven disease PFSH Medical History Bleeding hemorrhoids Cardiac pacemaker in situ Tubular adenoma of colon Prostate cancer Hypertension Surgical History History of right hemicolectomy History of prostate biopsy Pacemaker H/O colonoscopy H/O hernia repair Hx of tonsillectomy Family History Father Family history of Alzheimer's disease Mother Breast cancer Social History Alcohol intake: current Alcohol intake frequency: a few times a month Cigarettes Per Day: 1 Review of Systems Const Denies chills and Denies fever(s) Card Reports no additional complaints and Denies syncope Resp Denies cough GI Denies abdominal pain and Denies heartburn Reports as per HPI and Denies change in libido Neuro Denies syncope Psych Denies change in libido Endo Denies change in libido Physical Exam Const General: cooperative, healthy appearing, comfortable and no acute distress Orientation/consciousness: patient oriented x3 HEENT Face and sinus: Yes normal facial exam Mouth: moist mucous membranes Neck Neck: Yes normal visual inspection, Yes full ROM and Yes trachea midline Chest Chest palpation & inspection: normal inspection of the chest Resp Effort & Inspection: normal respiratory effort, able to speak in complete sentences and no respiratory distress GI Inspection: Yes normal to inspection Back/Spine/Pelvis Cervical Spine: normal cervical lordosis Thoracic/Lumbar Spine: thoracic and lumbar spine normal to inspection Skin General skin exam: no rashes or lesions noted Neuro General: patient oriented x3, gait normal, tone normal and moves all extremities Extrem General: Yes normal to inspection and Yes capillary refill normal Office Procedures Post Void Residual Post Residual Void Post Void Residual (PVR): 10 [id number] Void Residual by ultrasound Assessment & Plan Assessment & Plan (1) Prostate cancer: Code(s): C61 - Malignant neoplasm of prostate Category: Medical (2) Radiation cystitis: Code(s): N30.40 - Irradiation cystitis without hematuria Category: Medical Plan Six-month follow-up Orders: Orders Prostate Specific Antigen 6 Months Z85.46 - Personal history of malignant neoplasm of prostate Patient Instructions: This note is constructed using voice recognition software. While every effort has been made to ensure accuracy vision teacher errors may have been included. Imaging studies, laboratory and physical exam results were discussed and reviewed in detail. No major barriers to patient understanding were identified. An opportunity to ask questions regarding the treatment plan was provided. All questions were answered. The patient expressed understanding and agreement with the above treatment plan. The patient is aware they should contact our office by phone for worsening of their current condition or the appearance of new urologic symptoms. Compliance is encouraged with any medications and followup testing that is ordered. It is a privilege to participate in the urologic care of your patient. If you have any questions or concerns regarding treatment for the above conditions, or other urologic issues, please do not hesitate to contact me. The office telephone contact is [phone]. Sincerely, Dr Italo Arora MD, RHE[facility] - Urology Compassionate Specialist Care for the Genitourinary System Coding Level of Care Code Est Pt Level 3 (43365) Complex EM visit Add On G2211 Diagnoses Prostate cancer C61 Radiation cystitis N30.40 CPT Codes Post Residual Void - PVR CPT Code: 30588-Tgfs Void Residual by ultrasound ([id number])
== END 2024-09-28 09:12 | disposition home or self-care (01) ==
PROVIDERS: PCP Internal Medicine; Visit Provider Urology
DX: C61 Malignant neoplasm of prostate (principal); N30.40 Irradiation cystitis without hematuria; Z13.9 Encounter for screening, unspecified
CPT/HCPCS: 99213; G2211

== ENCOUNTER → 2024-09-28 08:20 | Outpatient (BNVA) | payer OTHER, SELFPAY | PROVIDERS: PCP Internal Medicine; Visit Provider Urology | DX: C61 Malignant neoplasm of prostate (principal); N30.40 Irradiation cystitis without hematuria | CPT/HCPCS: 51798; 81003; 99212 ==

== ENCOUNTER → 2024-10-22 23:59 | Outpatient (BNV) | payer OTHER, SELFPAY ==
--- NOTE | 2024-10-24 15:12 | A.OFFVIS_ITS ---
Intake Visit Reasons: Remote device check- Medtronic Allergies No Known Allergies [No Known Allergies*] Allergy (Verified 09/28/24 08:53) PFSH Medical History Bleeding hemorrhoids Cardiac pacemaker in situ Tubular adenoma of colon Prostate cancer Hypertension Surgical History History of right hemicolectomy History of prostate biopsy Pacemaker H/O colonoscopy H/O hernia repair Hx of tonsillectomy Family History Father Family history of Alzheimer's disease Mother Breast cancer Social History Alcohol intake: current Alcohol intake frequency: a few times a month Cigarettes Per Day: 1 Office Procedures Cardiac Device Check Cardiac Device Check Details: Remote pacemaker report generated 10/22/2024. Pacemaker function is adequate [id number] Cardiac Device Interrogation, pacemaker Procedure code (CPT) selection complete Assessment & Plan Assessment & Plan (1) Cardiac pacemaker in situ: Comment: Dual-chamber Medtronic pacemaker placed for bradycardia Code(s): Z95.0 - Presence of cardiac pacemaker Category: Medical Plan: See above Coding Level of Care Code Procedure Only Diagnoses Cardiac pacemaker in situ Z95.0 CPT Codes Cardiac Device Check - Cardiac Device 12: [id number] Cardiac Device Interrogation, pacemaker ([id number])
== END ==
PROVIDERS: PCP Internal Medicine; Visit Provider Internal Medicine Cardiovascular Disease
DX: Z45.018 Encounter for adjustment and management of other part of cardiac pacemaker (principal)
CPT/HCPCS: 93294

== ENCOUNTER 2024-10-29 09:19 | Outpatient (AMB) | payer OTHER, SELFPAY ==
--- NOTE | 2024-10-29 09:25 | MHC.OFFVIS ---
Vital Signs 10/29/24 09:27 Height 5 ft 10 in Weight 224 lb 13.944 oz BMI 32.3 BP 134/76 Blood Pressure Location Rt brachial Position Sitting Pulse 72 Pulse Source Pulse Oximeter Pulse Oximetry (%) 98 Oxygen Delivery Method Room Air Intake Visit Reasons: f/u bleeding hemm Intake Note: ESTABLISHED PATIENT mgmt of chronic hemorrhoids. Changes/concerns? C/O chronic constipation w/o concern for active bleeding. Pt also reports urology concern (hematuria). Pt reports he is getting est with new PCP in 3 days and will call our office if he needs any further assistance. PCP should be able to provide referral. Pt reports having this issue once before. Producer Assistant Required: No Accompanied by: Self / Same As Patient Allergies No Known Allergies [No Known Allergies*] Allergy (Verified 10/29/24 09:25) HPI HPI f/u bleeding hemm: Details: LAST VISIT Bleeding hemorrhoids History of right hemicolectomy Tubulovillous adenoma Postprandial diarrhea GERD (gastroesophageal reflux disease) Plan Abnormal nuclear stress test. Scheduled for CTA in September I will see patient in October and we will schedule colonoscopy as soon as we able to. Occasional blood in his stools after bowel movement. Patient does report that he has to strain. Will send a script for Dulcolax. Patient was encouraged to increase fluid intake and activity to promote bowel activity. Patient will return in October so we can discuss going for colonoscopy. He is agreeable to this plan and verbalizes understanding of instructions. Continue omeprazole daily. Avoid dietary triggers and late night snacking, staying upright for minimum 3 hours after meals discussed with patient. He is agreeable to current plan of care and verbalizes understanding of instructions. He was given the opportunity to ask questions and all questions answered ? Thank you for allowing me to participate in his care Medications New bisacodyl (Dulcolax (bisacodyl)) 10 mg (2 x 5 mg) PO BEDTIME 180 tabs 4RF TODAY'S VISIT: Patient is here today for follow-up. Patient has been stressing as he has been having more frequent blood when urinating. Patient reports sometimes feels like he pees blood. Sees Dr. Arora, next appointment not till March. Patient denies any abdominal or pelvic pain. Reports that he is moving his bowels better now. Patient is taking Dulcolax daily. Denies any melena, hematochezia, unintentional weight loss or ribbon like stools. Patient denies any dyspepsia, dysphagia or odynophagia. He continues to take omeprazole in the morning. Patient ran out of fiber supplement, unable to get supplement from PCP. [facility], [facility] Medical History Bleeding hemorrhoids Cardiac pacemaker in situ Tubular adenoma of colon Prostate cancer Hypertension Surgical History History of right hemicolectomy History of prostate biopsy Pacemaker H/O colonoscopy H/O hernia repair Hx of tonsillectomy Family History Father Family history of Alzheimer's disease Mother Breast cancer Social History Alcohol intake: current Alcohol intake frequency: a few times a month Cigarettes Per Day: 1 Review of Systems Const Denies weight gain and Denies weight loss ENT Reports no additional complaints, Denies dysphagia and Denies odynophagia Card Reports no additional complaints Resp Reports no additional complaints GI Denies abdominal pain, Denies belching, Denies melena, Denies bloating, Denies change in bowel habits, Denies dysphagia, Denies excessive flatus, Denies dyspepsia, Denies heartburn, Denies diarrhea, Denies loose stools, Denies nausea, Denies odynophagia and Denies vomiting Reports hematuria (With clots) Musc Reports no additional complaints Neuro Reports no additional complaints Psych Reports no additional complaints Endo Reports no additional complaints Physical Exam Const General: healthy appearing and no acute distress Nutritional Appearance: obese Orientation/consciousness: patient oriented x3 Resp Effort & Inspection: normal respiratory effort, able to speak in complete sentences, no tracheal deviation and symmetric chest movement Auscultation: clear to auscultation bilaterally Cardio Rate: regular rate GI Inspection: Yes normal to inspection, No distended and Yes obesity Palpation (GI): Soft to palpation, not firm, nontender and No hepatosplenomegaly present Auscultation: normal bowel sounds General: Yes no CVA tenderness Back/Spine/Pelvis Back: no CVA tenderness Skin General skin exam: elasticity normal, turgor normal and dry skin Neuro General: patient oriented x3 Psych Appearance: grossly normal Mental Status: mental status grossly normal Assessment & Plan Assessment & Plan (1) History of right hemicolectomy: Code(s): Z90.49 - Acquired absence of other specified parts of digestive tract Category: Surgical (2) Tubulovillous adenoma: Code(s): D36.9 - Benign neoplasm, unspecified site (3) Postprandial diarrhea: Code(s): K52.9 - Noninfective gastroenteritis and colitis, unspecified (4) GERD (gastroesophageal reflux disease): Code(s): K21.9 - Gastro-esophageal reflux disease without esophagitis Qualifiers: Esophagitis presence: esophagitis presence not specified Qualified Code(s): K21.9 - Gastro-esophageal reflux disease without esophagitis Plan Message sent to spray operator for clearance. Patient will return in 3 months to discuss going for colonoscopy. Continue Dulcolax daily. Increase fluid intake and activity to promote better bowel motility. Staff will help patient book appointment with his urologist. Continue fiber supplement daily. Patient will continue taking omeprazole daily. Avoid dietary triggers and late night snacking. Staying upright for minimum 3 hours after meals discussed with patient. Patient is agreeable to current plan of care and verbalizes understanding of instructions. She was given the opportunity to ask questions and all questions answered. Thank you for allowing me to participate in his care Medications: Refilled psyllium husk (with sugar) 3.4 gram/7 gram (Metamucil (with sugar)) 1 tbsp PO DAILY 822 grams 2RF bisacodyl (Dulcolax (bisacodyl)) 10 mg (2 x 5 mg) PO BEDTIME 180 tabs 4RF omeprazole 40 mg PO DAILY 90 caps 3RF K21.9 - Gastro-esophageal reflux disease without esophagitis Coding Level of Care Code Est Pt Level 3 (94677) Diagnoses History of right hemicolectomy Z90.49 Tubulovillous adenoma D36.9 Postprandial diarrhea K52.9 Gastroesophageal reflux disease, unspecified whether esophagitis present K21.9 Esophagitis presence: esophagitis presence not specified Time Spent (min) 25 Comment 15 minutes spent with patient additional 10 minutes spent reviewing his records
[2024-10-29 09:27] VITALS: BP 134/76; PULSE 72; O2SAT 98; BMI 32.3
--- OUTSIDE RECORDS SUMMARY | 2024-10-29 10:03 | XMS_ITS | Continuity of Care Document ---
Author Name [facility] Organization [facility] Care Team Providers Care Blade Aligner Name Role Phone [facility] Unavailable Unavailable Problems Combined list of problems from Department of Defense and Veterans Affairs facilities. It does not include entries that were removed or entered in error. Problem Status Onset Date Problem Type Date of Resolution Comments Source Atrial flutter Active Condition Sep Entered By: WIN MCMULLEN Comment: New Dx SEP 02: Pacemaker Placed [facility]; now on EliquisFeb 2018 Entered By: WIN MCMULLEN Comment: A Flutter Noted Incidentally During Eval for Prostate BxOct 20, 2024 Entered By: JD GRAF Comment: followed by cardiology [place] Cardiac pacemaker in situ Active Condition Dec 01, 2018 Entered By: EMANUEL MATTHEWS Comment: placed 10/03 for a-flutter w/slow ventricular respone,heart block [place] CKD stage 3 Active Condition Jun 17, 2024 Entered By: JD GRAF Comment: 10/17/23 GFR 42Oct 20, 2024 Entered By: JD GRAF Comment: 09/04/24 GFR 52 [facility] Eczema Active Condition [facility] Elevated PSA Active Condition Jun 17, 2024 Entered By: JD GRAF Comment: Prostate Bx was scheduled SEP 02 [facility] but cancelled d/t AFlutter dx [place] GERD - Gastro-esophageal reflux disease Active Condition [facility] Gout Active Condition [place] H/O: recreational drug use Active Condition Jun 20, 2024 Entered By: JD GRAF Comment: cocaine, marijuana [facility] History of alcohol abuse Active Condition Jun 20, 2024 Entered By: JD GRAF Comment: 06/20/24 states he drinks a nip on the holidays [facility] Hyperlipidemia (SNOMED CT 32052047) Active Condition [place] Hypertension (SNOMED CT 87141892) Active Condition [facility] [...] 10/03 negative and scanned into [facility] [place] Nicotine dependence Active Condition Jun 24, 2024 Entered By: JD GRAF Comment: 3 cig/day since age 7Mar 2024 Entered By: JD GRAF Comment: 09/17/24 down to 2 cig/day [place] Obesity Active Condition Jun 24 Entered By: JD GRAF Comment: 06/20/24 BMI 32Mar 2024 Entered By: JD GRAF Comment: 09/17/24 BMI 33 [facility] 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 [facility] Osteoarthritis of multiple joints Active Condition [facility] Prediabetes Active Condition Jun 17, 2024 Entered By: JD GRAF Comment: 10/17/23 A1c 6.1Mar 2024 Entered By: JD GRAF Comment: 09/04/24 A1c 6.2 [facility] Primary malignant neoplasm of prostate Active Condition Jun 20, 2024 Entered By: JD GRAF Comment: hx radiation approx 2021 [place] PTSD - Post-traumatic stress disorder [facility] Refractive error (ICD-9-CM 367.9) Active Condition [facility] Screening for malignant neoplasm of colon done Active Condition Jun 14, 2012 Entered By: EMANUEL MATTHEWS Comment: colonoscopy dr mehta 05/26 no poylps or ticsJun 17, 2024 Entered By: JD GRAF Comment: 09/2019 colonoscopy unable to full remove and one completely excised tubular adenoma [place] Secondary erectile dysfunction Active Condition [facility] ACCRETIONS ON TEETH Inactive Condition 12/02/2011 [facility] Chest Findings Inactive Condition 02/07/2012 Sep 19, 2009 Entered By: WIN MCMULLEN Comment: CXR AUG 2009 - No Active Disease [place] Dry Skin (ICD-9-CM 706.8) Inactive Condition 12/02/2011 [facility] Folliculitis * (ICD-9-CM 704.8) Inactive Condition 12/02/2011 [facility] Hyperglycemia Inactive Condition 06/17/2024 [facility] Impaired Fasting Glucose (ICD-9-CM 790.21) Inactive Condition 06/17/2024 [place] Lack of Housing (ICD-9-CM V60.0) Inactive Condition 06/17/2024 [facility] Low back pain Inactive Condition 06/20/2024 [facility] Melasma * [facility] Seborrheic dermatitis Inactive Condition 06/20/2024 [place] Tinea * (ICD-9-CM 110.9) Inactive Condition 02/07/2012 [facility] Unemployment * Inactive Condition 06/17/2024 [facility] UNSPECIFIED DENTAL CARIES Inactive Condition 12/02/2011 [facility] Diagnosis: ICD-10-CM R31.9 Hematuria, unspecified Active Diagnosis [facility] Diagnosis: ICD-10-CM I48.92 Unspecified atrial flutter Active Diagnosis [facility] Diagnosis: ICD-10-CM L60.3 Nail dystrophy Active Diagnosis [facility] Diagnosis: ICD-10-CM Z04.89 Encounter for examination and observation for oth reasons Active Diagnosis [place] Diagnosis: ICD-10-CM K92.1 Melena Active Diagnosis [place] Diagnosis: ICD-10-CM K03.81 Cracked tooth Active Diagnosis [facility] Diagnosis: ICD-10-CM Z46.0 Encounter for fit/adjst of spectacles and contact lenses [facility] Diagnosis: ICD-10-CM H40.013 Open angle with borderline findings, low risk, bilateral Active Diagnosis [facility] [place] [facility] Diagnosis: ICD-10-CM R27.0 Ataxia, unspecified Active Diagnosis [facility] Medications Combined list of outpatient medications from Department of Defense and Veterans Affairs facilities.Medications provided include 1) outpatient medications from the last 15 months, and 2) patient-reported medications. Medication Details Route Status Patient Instructions Prescription Expires Prescription Number Last Dispense Date Ordering Provider Order Date Order Qty Source ALLOPURINOL 300MG TAB TAKE ONE TABLET BY MOUTH ONCE DAILY FOR GOUT ORAL ACTIVE 09/18/2025 [id number] 5 Blaine GRAF 2024 90 [facility] ALLOPURINOL 300MG TAB TAKE ONE TABLET BY MOUTH ONCE DAILY FOR GOUT ORAL DISCONT INUED 07/17/2025 [id number] 4 Blaine GRAF 2023 90 [facility] IELD ALLOPURINOL 300MG TAB TAKE ONE TABLET BY MOUTH ONCE DAILY FOR GOUT ORAL DISCONT INUED 04/29/2024 [id number] AARON MATTHEWS 2022 90 [facility] IELD AMLODIPINE BESYLATE 10MG TAB TAKE ONE TABLET BY MOUTH ONCE DAILY FOR BLOOD PRESSURE /HEART, DO NOT TAKE WITH GRAPEFRU IT JUICE ORAL ACTIVE 09/18/2025 [id number] 5 Blaine GRAF 2024 90 [facility] IELD AMLODIPINE BESYLATE 10MG TAB TAKE ONE TABLET BY MOUTH ONCE DAILY FOR BLOOD PRESSURE /HEART, DO NOT TAKE WITH GRAPEFRU IT JUICE ORAL DISCONT INUED 06/25/2025 [id number] 4 Blaine GRAF 2023 90 [place] AMLODIPINE BESYLATE 10MG TAB TAKE ONE TABLET BY MOUTH ONCE DAILY FOR BLOOD PRESSURE /HEART, DO NOT TAKE WITH GRAPEFRU IT JUICE ORAL DISCONT INUED 06/05/2024 [id number] DARRELL LAMBERT 2023 90 [place] AMLODIPINE BESYLATE 10MG TAB TAKE ONE TABLET BY MOUTH ONCE DAILY FOR BLOOD PRESSURE /HEART, DO NOT TAKE WITH GRAPEFRU IT JUICE ORAL DISCONT INUED 04/29/2024 [id number] 4 AARON MATTHEWS 2022 90 [place] AMOXICILLIN TRIHYDRATE 500MG CAP TAKE ONE CAPSULE BY MOUTH FOUR TIMES A DAY ORAL DISCONT INUED BY [facility] 08/16/2024 [id number] JOSHUA MORALES 2023 28 [facility] APIXABAN 5MG TAB TAKE ONE TABLET BY MOUTH TWICE DAILY ORAL SUSPEND ED 09/18/2025 [id number] 5 Blaine GRAF 2024 180 [place] APIXABAN 5MG TAB TAKE ONE TABLET BY MOUTH TWICE DAILY ORAL DISCONT INUED 08/25/2025 [id number] 5 Blaine GRAF 2024 180 [place] APIXABAN 5MG TAB TAKE ONE TABLET BY MOUTH TWICE DAILY ORAL DISCONT INUED 08/19/2024 [id number] 4 DARRELL LAMBERT BRANDON F 2023 180 [place] APIXABAN 5MG TAB TAKE ONE TABLET BY MOUTH TWICE DAILY ORAL DISCONT INUED 04/29/2024 [id number] AARON MATTHEWS 2022 180 [place] ATORVASTATI N CA 40MG TAB TAKE ONE-HALF TABLET BY MOUTH AT BEDTIME FOR HIGH CHOLESTE ROL ORAL ACTIVE 09/18/2025 [id number] 5 Blaine GRAF 2024 45 [place] BISACODYL 5MG TAB,EC TAKE TWO TABLETS BY MOUTH AT BEDTIME FOR BOWELS - LAXATIVE ORAL ACTIVE 08/25/2025 [id number] 5 ADRI LLOYD 2024 180 [place] CHLORHEXIDI NE GLUCONATE 0.12% RINSE,ORAL RINSE WITH 10ML BY MOUTH TWICE DAILY FOR 21 DAYS ORAL DISCONT INUED BY PROVIDE [facility] 08/16/2024 [id number] JOSHUA MORALES 2023 473 [facility] COAL TAR 1% SHAMPOO SHAMPOO MODERATE AMOUNT TOPICALL Y TWICE A WEEK NEEDED FOR SEBORRHE IC DERMATIT IS TOPICA L DISCONT INUED BY [facility] 06/21/2025 [id number] 4 Blaine GRAF 2023 360 [place] COAL TAR 2% SHAMPOO SHAMPOO SUFFICIE NT AMOUNT TOPICALL Y TWICE A WEEK NEEDED FOR SEBORRHE IC DERMATIT IS TOPICA L ACTIVE 09/18/2025 [id number] 5 Blaine GRAF 2024 480 [place] COAL TAR 2% SHAMPOO SHAMPOO SUFFICIE NT AMOUNT TOPICALL Y TWICE A WEEK NEEDED FOR SEBORRHE IC DERMATIT IS TOPICA L DISCONT INUED 06/28/2025 [id number] 4 Blaine GRAF 2023 480 [place] GLYCERIN (ADULT) SUPP,RTL INSERT 1 SUPPOSIT ORY RECTALLY ONCE DAILY FOR CONSTIPA TION RECTAL ACTIVE 10/24/2025 [id number] 5 PRIYANKA GUEVARA 2024 100 [place] HYDROCODONE 5MG/ACETAMI NOPHEN 325MG TAB TAKE 1 TABLET BY MOUTH EVERY 6 HOURS NEEDED FOR PAIN ORAL DISCONT INUED BY PROVIDE [facility] 08/16/2024 [id number] 4 JOSHUA MORALES 2023 10 [facility] IBUPROFEN 600MG TAB TAKE ONE TABLET BY MOUTH EVERY 8 HOURS NEEDED FOR PAIN TAKE WITH FOOD ORAL DISCONT INUED BY PROVIDE [facility] 08/16/2024 [id number] Blaine GRAF 2023 90 [place] METOPROLOL SUCCINATE 50MG TAB,SA TAKE ONE TABLET BY MOUTH ONCE DAILY FOR BLOOD PRESSURE /HEART ORAL SUSPEND ED 09/18/2025 [id number] 5 Blaine GRAF 2024 90 [place] METOPROLOL SUCCINATE 50MG TAB,SA TAKE ONE TABLET BY MOUTH ONCE DAILY FOR BLOOD PRESSURE /HEART ORAL DISCONT INUED 08/25/2025 [id number] 5 Blaine GRAF 2024 90 [place] METOPROLOL SUCCINATE 50MG TAB,SA TAKE ONE TABLET BY MOUTH ONCE DAILY FOR BLOOD PRESSURE /HEART ORAL DISCONT INUED 06/17/2024 [id number] KAJAL WASHINGTON 2022 90 [facility] OMEPRAZOLE 20MG CAP,EC TAKE TWO CAPSULES BY MOUTH ONCE DAILY ORAL ACTIVE 06/09/2025 [id number] 4 ADRI LLOYD 2023 180 [facility] OXYBUTYNIN CL 10MG TAB,SA TAKE ONE TABLET BY MOUTH ONCE DAILY FOR BLADDER INSTABIL ITY ORAL ACTIVE 09/18/2025 [id number] 5 Blaine GRAF 2024 90 [facility] IELD OXYBUTYNIN CL 10MG TAB,SA TAKE ONE TABLET BY MOUTH ONCE DAILY FOR BLADDER INSTABIL ITY ORAL DISCONT INUED 07/22/2025 [id number] 4 Blaine GRAF 2023 90 [facility] IELD OXYBUTYNIN CL 10MG TAB,SA TAKE ONE TABLET BY MOUTH ONCE DAILY FOR BLADDER INSTABIL ITY ORAL DISCONT INUED 04/29/2024 [id number] AARON MATTHEWS 2022 90 [facility] IELD PANTOPRAZOL E NA 20MG TAB,EC TAKE ONE TABLET BY MOUTH EVERY MORNING 30 MINUTES BEFORE BREAKFAS T ORAL DISCONT INUED BY PROVIDE R 04/29/2024 [id number] 4 AARON MATTHEWS 2022 90 [facility] IELD PSYLLIUM PWDR,ORAL TAKE 1 TABLESPO ONFUL BY MOUTH ONCE DAILY (MIX WITH AT LEAST 8OZ. OF WATER OR OTHER FLUID) ORAL ACTIVE 06/21/2025 [id number] 4 Blaine GRAF 2023 780 [place] PSYLLIUM PWDR,ORAL TAKE 1 TABLESPO ONFUL BY MOUTH ONCE DAILY (MIX WITH AT LEAST 8OZ. OF WATER OR OTHER FLUID) ORAL DISCONT INUED 06/13/2025 [id number] 4 ADRI LLOYD 2023 780 [facility] SILDENAFIL CITRATE 100MG TAB TAKE ONE TABLET BY MOUTH ONCE DAILY NEEDED TAKE 1 HOUR PRIOR TO SEXUAL ACTIVITY ORAL ACTIVE 09/18/2025 [id number] 5 Blaine GRAF 2024 18 [place] SILDENAFIL CITRATE 100MG TAB TAKE ONE TABLET BY MOUTH ONCE DAILY NEEDED TAKE 1 HOUR PRIOR TO SEXUAL ACTIVITY ORAL DISCONT INUED 06/23/2025 [id number] 4 Blaine GRAF 2023 18 [place] SILDENAFIL CITRATE 100MG TAB TAKE ONE TABLET BY MOUTH ONCE DAILY NEEDED TAKE 1 HOUR PRIOR TO SEXUAL ACTIVITY ORAL DISCONT INUED 07/31/2024 [id number] 4 DARRELL LAMBERT EN F 2023 18 [place] SILDENAFIL CITRATE 100MG TAB TAKE ONE TABLET BY MOUTH ONCE DAILY NEEDED TAKE 1 HOUR PRIOR TO SEXUAL ACTIVITY ORAL DISCONT INUED 03/08/2025 [id number] 4 DARRELL LAMBERT YINA F 2023 6 [place] SILDENAFIL CITRATE 100MG TAB TAKE ONE TABLET BY MOUTH ONCE DAILY NEEDED TAKE 1 HOUR PRIOR TO SEXUAL ACTIVITY ORAL DISCONT INUED 07/27/2024 [id number] 4 AARON MATTHEWS 2022 6 [place] SODIUM FLUORIDE 1.1% TOOTHPASTE BRUSH SMALL AMOUNT TO TEETH TWICE DAILY FOR TOOTH DECAY PREVENTI ON DENTAL 07/21/2024 [id number] 4 TE CARTER 2022 204 [facility] Immunizations Combined list of available immunizations from the Department of Defense and Veterans Affairs facilities. Immunization Series Date Given Administered By Site Reaction Lot Number CVX Code Drug Nuclear Medicine Tech Status Comments Source COVID-19 (MODERNA), MRNA, LNP-S, PF, 50 MCG/0.5 ML (AGES 12+ YEARS) 2023 BANDAR MORALES RIGHT DELTO ID [id number] 312 complet ed [place] INFLUENZA, HIGH-DOSE, TRIVALENT, PF 2023 BANDAR MORALES LEFT DELTO ID [id number] 135 complet ed [place] INFLUENZA, HIGH-DOSE, QUADRIVALENT 2022 FAYE HAQ SA LEFT DELTO ID [id number] 197 complet ed [facility] INFLUENZA VACCINE, QUADRIVALENT, ADJUVANTED 2021 205 complet ed [place] COVID-19 (MODERNA), MRNA, LNP-S, PF, 100 MCG OR 50 MCG DOSE 3 2020 207 complet ed MOD; [id number]; 2 [place] INFLUENZA VACCINE, QUADRIVALENT, ADJUVANTED 2020 205 complet ed [facility] ZOSTER RECOMBINANT 2 2020 187 complet ed [place] COVID-19 (MODERNA), MRNA, LNP-S, PF, 100 MCG/0.5 ML DOSE 2 2020 207 complet ed MOD; [id number]; 1 [place] COVID-19 (MODERNA), MRNA, LNP-S, PF, 100 MCG/0.5 ML DOSE 1 2020 207 complet ed MOD; [id number]; 1 [place] INFLUENZA, INJECTABLE, QUADRIVALENT, PRESERVATIVE [...] Reference Range Date Interpretation Specimen Comments Source HEMOGLOBI N A1C PANEL HEMOGLOBIN A1C/HEMOGLO BIN.TOTAL IN BLOOD BY HPLC 6.2 4.0 - 5.6 09/04 H Specimen Type: BLOOD Comment: Values obtained from A1C measurement s can vary. For atypical A1C assays, a reported value of 7.0 could actually be between 6.72 and 7.28 if measured by a reference method. A reported value of 9.0 could actually be between 8.73 and 9.27. Ref: http://www. ngsp.org/[place] Pdata.asp Ordering Provider: YON GRAF Report Released Date/Time: Jun 13, 2024 03:11 PM Reporting Lab: [address] [address] Performing Lab: [address] [address] [place] LIPID PANEL FASTING CHOLESTEROL [MASS/VOLUM E] IN SERUM OR PLASMA 272 mg/dL 09/04 H Specimen Type: SERUM No comment entered. Ordering Provider: YON GRAF Report Released Date/Time: Jun 13, 2024 03:11 PM Reporting Lab: [address] [address] Performing Lab: [address] [address] [place] LIPID PANEL FASTING TRIGLYCERID E [MASS/VOLUM E] IN SERUM OR PLASMA 188 mg/dL 0 - 150 09/04 H Specimen Type: SERUM No comment entered. Ordering Provider: YON GRAF Report Released Date/Time: Jun 13, 2024 03:11 PM Reporting Lab: [address] [address] Performing Lab: [address] [address] [facility] FASTING CHOLESTEROL IN LDL [MASS/VOLUM E] IN SERUM OR PLASMA BY CALCULATION 202 mg/dL 0 - 129 09/04 H Specimen Type: SERUM No comment entered. Ordering Provider: YON GRAF Report Released Date/Time: Jun 13, 2024 03:11 PM Reporting Lab: [address] [address] Performing Lab: [address] [address] [place] LIPID PANEL FASTING CHOLESTEROL .TOTAL/CHOL ESTEROL IN HDL [MASS RATIO] IN SERUM OR PLASMA 8.5 09/04 Specimen Type: SERUM No comment entered. Ordering Provider: YON GRAF Report Released Date/Time: Jun 13, 2024 03:11 PM Reporting Lab: [address] [address] Performing Lab: [address] [address] [place] LIPID PANEL FASTING CHOLESTEROL IN HDL [MASS/VOLUM E] IN SERUM OR PLASMA 32 mg/dL 40 - 60 09/04 L Specimen Type: SERUM No comment entered. Ordering Provider: YON GRAF Report Released Date/Time: Jun 13, 2024 03:11 PM Reporting [facility]: [facility] [address] [address] Performing Lab: [address] [address] [place] LIVER FUNCTION PROTEIN [MASS/VOLUM E] IN SERUM OR PLASMA 7.5 g/dL 6.0 - 8.3 09/04 Specimen Type: SERUM No comment entered. Ordering Provider: YON GRAF Report Released Date/Time: Jun 13, 2024 03:11 PM Reporting Lab: [address] [address] Performing Lab: [address] [address] [place] LIVER FUNCTION ALBUMIN [MASS/VOLUM E] IN SERUM OR PLASMA 4.0 g/dL 3.5 - 5.0 09/04 Specimen Type: SERUM No comment entered. Ordering Provider: YON GRAF Report Released Date/Time: Jun 13, 2024 03:11 PM Reporting Lab: [address] [address] Performing Lab: [address] [address] [place] LIVER FUNCTION ALKALINE PHOSPHATASE [ENZYMATIC ACTIVITY/VO LUME] IN SERUM OR PLASMA 66 U/L 40 - 150 09/04 Specimen Type: SERUM No comment entered. Ordering Provider: YON GRAF Report Released Date/Time: Jun 13, 2024 03:11 PM Reporting Lab: [facility] [address] [address] Performing Lab: [address] [address] [place] LIVER FUNCTION ASPARTATE AMINOTRANSF ERASE [ENZYMATIC ACTIVITY/VO LUME] IN SERUM OR PLASMA 16 U/L 5 - 34 09/04 Specimen Type: SERUM No comment entered. Ordering Provider: YON GRAF Report Released Date/Time: Jun 13, 2024 03:11 PM Reporting Lab: [facility] [place] [address] [address] Performing Lab: [facility] [address] [address] [place] LIVER FUNCTION ALANINE AMINOTRANSF ERASE [ENZYMATIC ACTIVITY/VO LUME] IN SERUM OR PLASMA 21 U/L 09/04 Specimen Type: SERUM No comment entered. Ordering Provider: YON GRAF Report Released Date/Time: Jun 13, 2024 03:11 PM Reporting Lab[facility] [address] Performing Lab: [facility] [address] [address] [place] LIVER FUNCTION BILIRUBIN.T OTAL [MASS/VOLUM E] IN SERUM OR PLASMA 0.5 mg/dL 0.2 - 1.2 09/04 Specimen Type: SERUM No comment entered. Ordering Provider: YON GRAF Report Released Date/Time: Jun 13, 2024 03:11 PM Reporting Lab: [facility] [address] [address] Performing Lab: [facility] [address] [place] TSH THYROTROPIN [UNITS/VOLU ME] IN SERUM OR PLASMA 1.89 u[IU]/ mL 0.35 - 5.00 09/04 Specimen Type: SERUM No comment entered. Ordering Provider: YON GRAF Report Released Date/Time: Jun 13, 2024 03:11 PM Reporting Lab: [facility] [place] [address] [address] Performing Lab: [facility] [address] [place] BASIC METABOLIC PANEL (fasting) UREA NITROGEN [MASS/VOLUM E] IN SERUM OR PLASMA 24 mg/dL 7 - 25 01/21 /2025 Specimen Type: SERUM No comment entered. Ordering Provider: YON GRAF Report Released Date/Time: Jun 13, 2024 03:11 PM Reporting Lab: [facility] [address] [facility] [address] Performing Lab: [address] [address] [place] BASIC METABOLIC PANEL (fasting) GLUCOSE [MASS/VOLUM E] IN SERUM OR PLASMA 86 mg/dL 65 - 100 09/04 Specimen Type: SERUM No comment entered. Ordering Provider: YON GRAF Report Released Date/Time: Jun 13, 2024 03:11 PM Reporting Lab: [address] [address] Performing Lab: [address] [address] [place] BASIC METABOLIC PANEL (fasting) SODIUM [MOLES/VOLU ME] IN SERUM OR PLASMA 138 mmol/L 135 - 145 09/04 Specimen Type: SERUM No comment entered. Ordering Provider: YON GRAF Report Released Date/Time: Jun 13, 2024 03:11 PM Reporting Lab: [address] [address] Performing Lab: [facility] [address] [address] [place] BASIC METABOLIC PANEL (fasting) POTASSIUM [MOLES/VOLU ME] IN SERUM OR PLASMA 4.9 mmol/L 3.5 - 5.0 09/04 Specimen Type: SERUM No comment entered. Ordering Provider: YON GRAF Report Released Date/Time: Jun 13, 2024 03:11 PM Reporting Lab: [facility] [address] [address] Performing Lab: [facility] [address] [address] [place] BASIC METABOLIC PANEL (fasting) CHLORIDE [MOLES/VOLU ME] IN SERUM OR PLASMA 105 mmol/L 100 - 110 09/04 Specimen Type: SERUM No comment entered. Ordering Provider: YON GRAF Report Released Date/Time: Jun 13, 2024 03:11 PM Reporting Lab: [facility] [address] [address] Performing Lab: [facility] [address] [address] [place] BASIC METABOLIC PANEL (fasting) CARBON DIOXIDE, TOTAL [MOLES/VOLU ME] IN SERUM OR PLASMA 23 meq/L - 09/04 Specimen Type: SERUM No comment entered. Ordering Provider: YON GRAF Report Released Date/Time: Jun 13, 2024 03:11 PM Reporting Lab: [address] [address] Performing Lab: [address] [address] [place] BASIC METABOLIC PANEL (fasting) CREATININE [MASS/VOLUM E] IN SERUM OR PLASMA 1.41 mg/dL 0.50 - 1.40 09/04 H Specimen Type: SERUM No comment entered. Ordering Provider: YON GRAF Report Released Date/Time: Jun 13, 2024 03:11 PM Reporting Lab: [address] [address] Performing Lab: [address] [address] [place] BASIC METABOLIC PANEL (fasting) GLOMERULAR FILTRATION RATE/1.73 SQ M.PREDICTED [VOLUME RATE/AREA] IN SERUM, PLASMA OR BLOOD BY CREATININE- BASED FORMULA (CKD-EPI 2020) 52 mL/min 60 09/04 L Specimen Type: SERUM No comment entered. Ordering Provider: YON GRAF Report Released Date/Time: Jun 13, 2024 03:11 PM Reporting Lab: [facility] [address] [address] Performing Lab: [address] [address] [place] CBC AND DIFF (AUTO) LEUKOCYTES [#/VOLUME] IN BLOOD BY AUTOMATED COUNT 3.34 10*3/u L 4.50 - 11.00 09/04 L Specimen Type: BLOOD No comment entered. Ordering Provider: YON GRAF Report Released Date/Time: Jun 13, 2024 03:11 PM Reporting Lab: [facility] [address] [address] Performing Lab: [facility] [address] [address] [place] CBC AND DIFF (AUTO) ERYTHROCYTE S [#/VOLUME] IN BLOOD BY AUTOMATED COUNT 4.30 10*6/u L 4.23 - 5.66 09/04 Specimen Type: BLOOD No comment entered. Ordering Provider: YON GRAF Report Released Date/Time: Jun 13, 2024 03:11 PM Reporting Lab: [facility] [address] [address] Performing Lab: [facility] [address] [place] CBC AND DIFF (AUTO) HEMOGLOBIN [MASS/VOLUM E] IN BLOOD 13.6 g/dL 12.8 - 17 09/04 Specimen Type: BLOOD No comment entered. Ordering Provider: YON GRAF Report Released Date/Time: Jun 13, 2024 03:11 PM Reporting Lab: [facility] [address] [address] Performing Lab: [facility] [address] [address] [place] CBC AND DIFF (AUTO) HEMATOCRIT [VOLUME FRACTION] OF BLOOD BY AUTOMATED COUNT 40.9 39.2 - 50.4 09/04 Specimen Type: BLOOD No comment entered. Ordering Provider: YON GRAF Report Released Date/Time: Jun 13, 2024 03:11 PM Reporting Lab: [facility] [address] [address] Performing Lab: [facility] [address] [address] [place] CBC AND DIFF (AUTO) MCV [ENTITIC VOLUME] BY AUTOMATED COUNT 95.1 fL 82 - 99 09/04 Specimen Type: BLOOD No comment entered. Ordering Provider: YON GRAF Report Released Date/Time: Jun 13, 2024 03:11 PM Reporting Lab: [facility] [address] [address] Performing Lab: [facility] [address] [address] [place] CBC AND DIFF (AUTO) MCHC [MASS/VOLUM E] BY AUTOMATED COUNT 33.3 g/dL 30.8 - 35.1 09/04 Specimen Type: BLOOD No comment entered. Ordering Provider: YON GRAF Report Released Date/Time: Jun 13, 2024 03:11 PM Reporting Lab: [address] [address] Performing Lab: [address] [address] [place] CBC AND DIFF (AUTO) PLATELETS [#/VOLUME] IN BLOOD BY AUTOMATED COUNT 181 10*3/u L 140 - 360 09/04 Specimen Type: BLOOD No comment entered. Ordering Provider: YON GRAF Report Released Date/Time: Jun 13, 2024 03:11 PM Reporting Lab: [address] [address] Performing Lab: [address] [address] [place] CBC AND DIFF (AUTO) ERYTHROCYTE DISTRIBUTIO N WIDTH [RATIO] BY AUTOMATED COUNT 15.6 12.0 - 16.0 09/04 Specimen Type: BLOOD No comment entered. Ordering Provider: YON GRAF Report Released Date/Time: Jun 13, 2024 03:11 PM Reporting Lab: [facility] [address] [address] Performing Lab: [address] [address] [place] CBC AND DIFF (AUTO) MONOCYTES [#/VOLUME] IN BLOOD BY AUTOMATED COUNT 0.39 10*3/u L 0.30 - 1.10 09/04 Specimen Type: BLOOD No comment entered. Ordering Provider: YON GRAF Report Released Date/Time: Jun 13, 2024 03:11 PM Reporting [facility] [address] [address] Performing Lab: [facility] [address] [address] [place] CBC AND DIFF (AUTO) MCH [ENTITIC MASS] BY AUTOMATED COUNT 31.6 pg 26.2 - 32.6 09/04 Specimen Type: BLOOD No comment entered. Ordering Provider: YON GRAF Report Released Date/Time: Jun 13, 2024 03:11 PM Reporting Lab: [address] [address] Performing Lab: [facility] [address] [address] [place] CBC AND DIFF (AUTO) NEUTROPHILS /100 LEUKOCYTES IN BLOOD BY AUTOMATED COUNT 65.2 43.7 - 75.8 09/04 Specimen Type: BLOOD No comment entered. Ordering Provider: YON GRAF Report Released Date/Time: Jun 13, 2024 03:11 PM Reporting Lab: [address] [address] Performing Lab: [facility] [address] [address] [place] CBC AND DIFF (AUTO) LYMPHOCYTES /100 LEUKOCYTES IN BLOOD BY AUTOMATED COUNT 18.3 14.0 - 42.3 09/04 Specimen Type: BLOOD No comment entered. Ordering Provider: YON GRAF Report Released Date/Time: Jun 13, 2024 03:11 PM Reporting [facility]: [facility] [address] [address] Performing Lab: [facility] [address] [address] [place] CBC AND DIFF (AUTO) MONOCYTES/1 00 LEUKOCYTES IN BLOOD BY AUTOMATED COUNT 11.7 5.1 - 13.7 09/04 Specimen Type: BLOOD No comment entered. Ordering Provider: YON GRAF Report Released Date/Time: Jun 13, 2024 03:11 PM Reporting [facility]: [facility] [address] [address] Performing [facility]: [facility] [address] [address] [place] CBC AND DIFF (AUTO) EOSINOPHILS /100 LEUKOCYTES IN BLOOD BY AUTOMATED COUNT 3.3 0.4 - 6.8 09/04 Specimen Type: BLOOD No comment entered. Ordering Provider: YON GRAF Report Released Date/Time: Jun 13, 2024 03:11 PM Reporting Lab: [facility] [address] [address] Performing Lab: [facility] [address] [address] [place] CBC AND DIFF (AUTO) BASOPHILS/1 00 LEUKOCYTES IN BLOOD BY AUTOMATED COUNT 0.3 0.1 - 2.0 09/04 Specimen Type: BLOOD No comment entered. Ordering Provider: YON GRAF Report Released Date/Time: Jun 13, 2024 03:11 PM Reporting Lab: [facility] [address] [address] Performing Lab: [facility] [address] [address] [place] CBC AND DIFF (AUTO) NEUTROPHILS [#/VOLUME] IN BLOOD BY AUTOMATED COUNT 2.18 10*3/u L 2.20 - 7.60 09/04 L Specimen Type: BLOOD No comment entered. Ordering Provider: YON GRAF Report Released Date/Time: Jun 13, 2024 03:11 PM Reporting Lab: [facility] [address] [address] Performing Lab: [facility] [address] [address] [place] CBC AND DIFF (AUTO) LYMPHOCYTES [#/VOLUME] IN BLOOD BY AUTOMATED COUNT 0.61 10*3/u L 1.00 - 3.20 09/04 L Specimen Type: BLOOD No comment entered. Ordering Provider: YON GRAF Report Released Date/Time: Jun 13, 2024 03:11 PM Reporting Lab: [facility] [address] [address] Performing Lab: [facility] [address] [address] [place] CBC AND DIFF (AUTO) EOSINOPHILS [#/VOLUME] IN BLOOD BY AUTOMATED COUNT 0.11 10*3/u L 0.03 - 0.44 09/04 Specimen Type: BLOOD No comment entered. Ordering Provider: YON GRAF Report Released Date/Time: Jun 13, 2024 03:11 PM Reporting Lab: [facility] [address] [address] Performing Lab: [facility] [address] [address] [place] CBC AND DIFF (AUTO) BASOPHILS [#/VOLUME] IN BLOOD BY AUTOMATED COUNT 0.01 10*3/u L 0.01 - 0.13 09/04 Specimen Type: BLOOD No comment entered. Ordering Provider: YON GRAF Report Released Date/Time: Jun 13, 2024 03:11 PM Reporting Lab: [facility] [address] [address] Performing Lab: [facility] [address] [place] CBC AND DIFF (AUTO) IMMATURE GRANULOCYTE S/100 LEUKOCYTES IN BLOOD BY AUTOMATED COUNT 1.2 0.0 - 0.7 09/04 H Specimen Type: BLOOD No comment entered. Ordering Provider: YON GRAF Report Released Date/Time: Jun 13, 2024 03:11 PM Reporting Lab: [facility] [address] [address] Performing Lab: [facility] [address] [address] [place] CBC AND DIFF (AUTO) IMMATURE GRANULOCYTE S [#/VOLUME] IN BLOOD 0.04 10*3/u L 0.00 - 0.06 09/04 Specimen Type: BLOOD No comment entered. Ordering Provider: YON GRAF Report Released Date/Time: Jun 13, 2024 03:11 PM Reporting Lab: [facility] [address] [address] Performing Lab: [facility] [address] [address] [place] CBC AND DIFF (AUTO) NRBC % 0.0 0.0 - 0.0 09/04 Specimen Type: BLOOD No comment entered. Ordering Provider: YON GRAF Report Released Date/Time: Jun 13, 2024 03:11 PM Reporting Lab: [address] [address] Performing Lab: [facility] [address] [address] [place] CBC AND DIFF (AUTO) NRBC, ABS 0.00 10*3/u L 0.00 - 0.00 09/04 Specimen Type: BLOOD No comment entered. Ordering Provider: YON GRAF Report Released Date/Time: Jun 13, 2024 03:11 PM Reporting Lab: [address] [address] Performing Lab: [facility] [address] [address] [place] ALPHA-FET OPROTEIN ALPHA-1-FET OPROTEIN [MASS/VOLUM E] IN SERUM OR PLASMA 3.97 ng/mL 0 - 10 09/04 Specimen Type: SERUM No comment entered. Ordering Provider: YON GRAF Report Released Date/Time: Jun 20, 2024 12:48 PM Reporting Lab: [facility] [address] [address] Performing Lab: [address] [address] [facility] (25-OH) 25-HYDROXYV ITAMIN D3 [MASS/VOLUM E] IN SERUM OR PLASMA 17 ng/mL 20 - 50 09/04 L Specimen Type: SERUM No comment entered. Ordering Provider: YON GRAF Report Released Date/Time: Jun 20, 2024 12:48 PM Reporting Lab: [facility] [place] [facility] [address] [facility] [address] Performing Lab: [facility] [place] [facility] [address] [facility] [address] [facility] LIPID PANEL FASTING CHOLESTEROL [MASS/VOLUM E] IN SERUM OR PLASMA 161 mg/dL 10/16 Specimen Type: SERUM No comment entered. Ordering Provider: TOM MATTHEWS Report Released Date/Time: Sep 07, 2023 09:48 AM Reporting Lab: [facility] [address] Performing Lab: [facility]ITALUSETS [address] [address] [facility] LIPID PANEL FASTING TRIGLYCERID E [MASS/VOLUM E] IN SERUM OR PLASMA 205 mg/dL 0 - 150 10/16 H Specimen Type: SERUM No comment entered. Ordering Provider: TOM MATTHEWS Report Released Date/Time: Sep 07, 2023 09:48 AM Reporting Lab: [facility]ITAL[facility]ETS [address] [address] Performing Lab: [facility]OSPITALTRN [facility]PITALUSETS [address] [address] [facility]N [facility] LIPID PANEL FASTING CHOLESTEROL IN LDL [MASS/VOLUM E] IN SERUM OR PLASMA BY CALCULATION 84 mg/dL 0 - 129 10/16 Specimen Type: SERUM No comment entered. Ordering Provider: TOM MATTHEWS IE Report Released Date/Time: Sep 07, 2023 09:48 AM Reporting Lab: [facility]ITALUSETS [address] [address] Performing Lab: [facility]AV[facility] HOSPITALTRN [facility]ITALUSE[address] [address] [facility] [place] [facility] LIPID PANEL FASTING CHOLESTEROL .TOTAL/CHOL ESTEROL IN HDL [MASS RATIO] IN SERUM OR PLASMA 4.5 10/16 Specimen Type: SERUM No comment entered. Ordering Provider: TOM MATTHEWS IE Report Released Date/Time: Sep 07, 2023 09:48 AM Reporting Lab: [facility] [place] [facility] [address] [facility] [address] Performing Lab: [facility] [place] [facility] [address] [facility] [address] [facility] [place] [facility] LIPID PANEL FASTING CHOLESTEROL IN HDL [MASS/VOLUM E] IN SERUM OR PLASMA 36 mg/dL 40 - 60 10/16 L Specimen Type: SERUM No comment entered. Ordering Provider: TOM MATTHEWS IE Report Released Date/Time: Sep 07, 2023 09:48 AM Reporting Lab: [facility] [place] [address] [address] Performing Lab: [facility] [place] [address] [address] [facility] [place] [facility] LIVER FUNCTION PROTEIN [MASS/VOLUM E] IN SERUM OR PLASMA 6.4 g/dL 6.0 - 8.3 10/16 Specimen Type: SERUM No comment entered. Ordering Provider: TOM MATTHEWS IE Report Released Date/Time: Sep 07, 2023 09:48 AM Reporting Lab: [facility] [place] [address] [address] Performing Lab: [facility] [place] [facility] [address] [facility] [address] [facility] [place] [facility] LIVER FUNCTION ALBUMIN [MASS/VOLUM E] IN SERUM OR PLASMA 3.5 g/dL 3.5 - 5.0 10/16 Specimen Type: SERUM No comment entered. Ordering Provider: TOM MATTHEWS IE Report Released Date/Time: Sep 07, 2023 09:48 AM Reporting Lab: [facility] [place] [address] [address] Performing Lab: [facility] [place] [facility] [address] [facility] [address] [facility] [place] [facility] LIVER FUNCTION ALKALINE PHOSPHATASE [ENZYMATIC ACTIVITY/VO LUME] IN SERUM OR PLASMA 69 U/L 40 - 150 10/16 Specimen Type: SERUM No comment entered. Ordering Provider: TOM MATTHEWS IE Report Released Date/Time: Sep 07, 2023 09:48 AM Reporting Lab: [facility] [place] [facility] [address] [facility] [address] Performing Lab: [facility] [place] [facility] [address] [facility] [address] [facility] [place] [facility] LIVER FUNCTION ASPARTATE AMINOTRANSF ERASE [ENZYMATIC ACTIVITY/VO LUME] IN SERUM OR PLASMA 14 U/L 5 - 34 10/16 Specimen Type: SERUM No comment entered. Ordering Provider: TOM MATTHEWS IE Report Released Date/Time: Sep 07, 2023 09:48 AM Reporting Lab: [facility] [place] [facility] [address] [facility] [address] Performing Lab: [facility] [place] [address] [address] [facility] [place] [facility] LIVER FUNCTION ALANINE AMINOTRANSF ERASE [ENZYMATIC ACTIVITY/VO LUME] IN SERUM OR PLASMA 17 U/L 10/16 Specimen Type: SERUM No comment entered. Ordering Provider: TOM MATTHEWS IE Report Released Date/Time: Sep 07, 2023 09:48 AM Reporting Lab: [facility] [place] [facility] [address] [facility] [address] Performing Lab: [facility] [place] [address] [address] [facility] [place] [facility] LIVER FUNCTION BILIRUBIN.T OTAL [MASS/VOLUM E] IN SERUM OR PLASMA 0.4 mg/dL 0.2 - 1.2 10/16 Specimen Type: SERUM No comment entered. Ordering Provider: TOM MATTHEWS IE Report Released Date/Time: Sep 07, 2023 09:48 AM Reporting Lab: [facility] [place] [facility] [address] [facility] [address] Performing Lab: [facility] [place] [facility] [address] [facility] [address] [facility] [facility] Vital Signs Combined list of inpatient and outpatient Vital Signs from Department of Defense and Veterans Affairs, ranging from 12 months to all on record, depending upon the facility. Vital Sign Value Date Comments Source SYSTOLIC BLOOD PRESSURE 137 09/17/2024 10:02:17 [place] DIASTOLIC BLOOD PRESSURE 83 09/17/2024 10:02:17 [place] PULSE OXIMETRY 95 09/17/2024 10:02:17 [place] WEIGHT 228 09/17/2024 10:02:17 [place] BMI 32 kg/m2 09/17/2024 10:02:17 [place] HEIGHT 70.5 09/17/2024 10:02:17 [place] TEMPERATURE 97.8 09/17/2024 10:02:17 [place] PULSE 66 09/17/2024 10:02:17 [place] RESPIRATION 19 09/17/2024 10:02:17 [place] SYSTOLIC BLOOD PRESSURE 137 06/20/2024 13:46:58 [place] DIASTOLIC BLOOD PRESSURE 86 06/20/2024 13:46:58 [place] PULSE OXIMETRY 96 06/20/2024 13:46:58 [place] WEIGHT 222 06/20/2024 13:46:58 [place] BMI 32 kg/m2 06/20/2024 13:46:58 [place] PULSE 65 06/20/2024 13:46:58 [place] SYSTOLIC BLOOD PRESSURE 142 03/09/2024 09:09:11 [place] DIASTOLIC BLOOD PRESSURE 84 03/09/2024 09:09:11 [place] PULSE OXIMETRY 95 03/09/2024 09:09:11 [place] PAIN 0 03/09/2024 09:09:11 [place] TEMPERATURE 97.8 03/09/2024 09:09:11 [place] PULSE 82 03/09/2024 09:09:11 [place] RESPIRATION 17 03/09/2024 09:09:11 [place] Encounters Combined list of: 1) Encounters from Department of Veterans Affairs facilities going backup to the last 18 months, not all VA inpatient encounters are included; 2) Encounters from the Department of Defense facilities going backup to 280 months. Location Location Details Encounter Type Encounter Number Reason For Visit Attending Provider ADM Date DC Date Status Disposition Source [facility] En[facility] [id number] 05/12 [facility] En[facility] [id number] KENDRA LLAMAS 05/13 [facility] OT EVAL LOW COMPLEX 30 MIN [id number] Diagnos is: ICD-10- CM R27.0 Ataxia, unspeci fiANGEL Van 05/17 [facility] En[facility] [id number] 05/20 [facility] [id number] 06/18 [facility] En[facility] [id number] Chandan ALDANA 06/18 [facility] En[facility] [id number] 06/20 [facility] En[facility] [id number] 06/20 [facility] En[facility] [id number] 06/21 [facility] En[facility] [id number] 06/22 [facility] En[facility] [id number] HUGO ARAUJO KELLEY 06/22 [facility] En[facility] [id number] 06/23 [facility] En[facility] [id number] 06/25 [facility] Encounter [id number] 07/01 [facility] En[facility] [id number] 07/13 [facility] En[facility] [id number] 07/19 [facility] En[facility] [id number] 07/21 [facility] En[facility] [id number] 07/23 [facility] En[facility] [id number] 07/25 [facility] En[facility] [id number] 07/26 [facility] En[facility] [id number] 07/29 [facility] En[facility] [id number] 08/03 [facility] EYE EXAM&TX ESTAB PT 1/>VST [id number] Diagnos is: ICD-10- CM H40.013 Open angle with borderl ine finding s, low risk, bilater al MERHAR,ESME H B 08/03 [facility] FIT SPECTACLES BIFOCAL [id number] Diagnos is: ICD-10- CM Z46.0 Encount er for fit/adj st of spectac les and contact lenses MERCLAUDETTE,ESME H B 08/03 [facility] En[facility] [id number] 08/24 [facility] QNHP OL DIG ASSMT&MGMT 5-10 [id number] Diagnos is: ICD-10- CM Z04.89 Encount er for examina tion and observa tion for oth reasons KOURTNEY WILLIAM 08/25 [facility] En[facility] [id number] 08/25 [facility] Encounter [id number] 09/14 [facility] En[facility] [id number] 10/10 [facility] En[facility] [id number] [facility] EXTENSV ORAL EVAL PROB FOCUS [id number] Diagnos is: ICD-10- CM K03.81 Cracked tooth HALLEY MOYA 10/13 [facility] En[facility] [id number] 10/16 [facility] En[facility] [id number] 10/20 [facility] Encounter [id number] 12/12 [facility] Encounter [id number] 12/19 [facility] En[facility] [id number] 01/12 [facility] En[facility] [id number] 01/12 [facility] [place] Encounter [id number] 01/22 [facility] En[facility] [id number] 01/26 [facility] En[facility] [id number] 01/26 [facility] Encounter [id number] 02/08 [facility] [place] Encounter [id number] 02/19 [facility] En[facility] [id number] 02/19 [facility] En[facility] [id number] 03/02 [facility] [place] Encounter [id number] 03/02 [facility] [place] En[facility] [id number] 03/07 [facility] [place] En[facility] [id number] 03/09 [facility] [place]/OP EST DECEMBER X REQ PHY/QHP [id number] Diagnos is: ICD-10- CM K92.1 LANDON Rios IC K 03/09 [place] OFF[place] O/P EST MOD 30 MIN [id number] Diagnos is: ICD-10- CM K92.1 EVELIN Rizzo NDRA C 03/09 [place] [facility] En[facility] [id number] 03/14 [facility] En[facility] [id number] 03/28 [facility] En[facility] [id number] [facility] En[facility] [id number] 04/12 [facility] En[facility] [id number] 04/12 [facility] En[facility] [id number] 04/17 [facility] En[facility] [id number]/[id number] [facility] En[facility] [id number] 04/23 [facility] En[facility] [id number] 04/23 [facility] [place] En[facility] [id number] 05/07 [facility] [place] En[facility] [id number] 05/15 [facility] En[facility] [id number] 06/08 [facility] MOD 30 MIN [id number] EVELIN GRAFA C 06/20 [place] [facility] Out[facility] Encounter [id number] 06/22 [facility] [id number] 06/24 [facility] [id number] [facility] [id number] 06/27 [facility] [id number] 07/16 [facility] [id number] 07/16 [facility] En[facility] [id number] 07/17 [facility] DIG ASSMT&MGMT 5-10 [id number] 1BY. [id number] Diagnos is: ICD-10- CM Z04.89 Encount er for examina tion and observa tion for oth reasons HELEN,EARLE IE 07/18 [place] [facility] En[facility] [id number] IMTIAZ TAYLOR I 07/21 [facility] Encounter [id number] 08/02 [facility] ER LD OFFICE O/P EST MOD 30 MIN [id number] Diagnos is: ICD-10- CM L60.3 Nail dystrop hy ZAMZAM MACK ES F 08/16 [facility] [place] [facility] Encounter [id number] [facility] [id number] [facility] [id number] 09/05 [facility] [id number] 09/13 [facility] Encounter [id number] 09/17 [facility] ER LD OFFICE O/P EST HI 40 MIN [id number] Diagnos is: ICD-10- CM I48.92 Unspeci fied atrial flutter EVELIN GRAF 09/17 [facility] [place] [facility] Encounter [id number] EVELIN GRAFA C 09/17 [facility] [id number] 10/15 [facility] [id number] 10/15 [facility] En[facility] [id number] 10/15 [facility] SYNCH AUDIO-ONLY EST SF 10 [id number] Diagnos is: ICD-10- CM R31.9 Hematur ia, unspeci fied 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,[employer] 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 10/15 [facility] [facility]counter [id number] 10/17 [facility] Encounter [id number] 10/19 [facility] Encounter [id number] 10/22 [facility] Encounter [id number] 10/23 [facility] Encounter [id number] 10/26 [facility] Social History Combined list of available smoking, tobacco, and other social history from Department of Defense and Veterans Affairs facilities. Social History Type Response Date Comment Source Tobacco smoking status [facility] VA-TOBACCO USE EVERY DAY CIGARETTES 09/17/2024 [facility] History of tobacco use VA-TOBACCO NEVER USED OTHER TYPE 09/17/2024 [facility] History of tobacco use VA-TOBACCO SCREEN FOLLOW-UP 09/17/2024 [place] History of tobacco use VA-TOBACCO USER EVERY DAY 09/14/2023 [facility] History of tobacco use VA-TOBACCO USER EVERY DAY 08/02/2022 [facility] History of tobacco use VA-TOBACCO USER EVERY DAY 07/28/2021 [facility] History of tobacco use VA-TOBACCO USER EVERY DAY 06/04/2020 [facility] History of tobacco use VA-TOBACCO USE MED NO 02/01/2019 [place] History of tobacco use VA-TOBACCO USER EVERY DAY 11/14/2017 [place] History of tobacco use CURRENT SMOKER 05/16/2017 ~3 cigarettes per day [facility] History of tobacco use CURRENT SMOKER 11/01/2016 [place] History of tobacco use V1-PT DECLINES TOBACCO CESSATION MEDS 05/03/2016 [place] History of tobacco use CURRENT SMOKER 03/30/2016 smokes about 1 pack every 3 days for about 45 years [facility] History of tobacco use V1-PT DECLINES TOBACCO CESSATION MEDS 02/19/2014 [place] History of tobacco use CURRENT SMOKER 06/04/2013 smokes a pack of cigaretts a week. [place] History of tobacco use V1-PT DECLINES TOBACCO CESSATION MEDS 08/28/2012 [place] History of tobacco use CURRENT SMOKER 01/03/2012 [place] History of tobacco use V1-PT DECLINES TOBACCO CESSATION MEDS 07/22/2011 [place] History of tobacco use CURRENT SMOKER 01/25/2011 [place] History of tobacco use CURRENT SMOKER 09/03/2009 advise stop [place] History of tobacco use V1-PT DECLINES TOBACCO CESSATION MEDS 06/28/2008 [place] History of tobacco use CURRENT SMOKER 06/28/2008 5-6 cigarettes/day [place] History of tobacco use CURRENT SMOKER 03/18/2005 [place] History of tobacco use CURRENT SMOKER 12/28/2001 Patient states he has smoked from age 16-present, 1/2 pk cigarettes daily. [place] Plan of Care List of future care activities from Department of [facility] Affairs facilities. Additional future care activities may be listed in the Assessment and Plan section. Date/Time Care Activity Care Activity Detail Facili ty 10/29/2024 AMBULATORY - MEDICINE AMBULATORY - MEDICI NE [facility] 11/01/2024 AMBULATORY - MEDICINE AMBULATORY - MEDICI NE [place] 11/13/2024 AMBULATORY - MEDICINE AMBULATORY - MEDICI NE [facility] 12/12/2024 AMBULATORY - MEDICINE AMBULATORY - MEDICI NE [place] 03/18/2025 AMBULATORY - MEDICINE AMBULATORY - MEDICI NE [place] 03/20/2025 AMBULATORY - MEDICINE AMBULATORY [facility] 10/16/2024 Laboratory - Microbi ology Order URINE CULTURE(MWROX) URINE CLEAN CATCH SP [facility] 10/16/2024 Laboratory - Track Laminating Machine Tender ry Order URINALYSIS URINE SP [facility] 10/20/2024 Consult Order COMMUNITY CARE-G I GENERAL Cons [facility] [place]
--- OUTSIDE RECORDS SUMMARY | 2024-10-29 10:03 | XMS_ITS ---
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 Date/Time Encounter Type Encounter Description Reason Pro vider Source Oct 26, 2024 03:01 PM Outpatient Encounter PRIMARY CARE/MEDICINE IHE Encounter Template Text not used by VA Plan of Treatment: Future Appointments (+ 6 months) and Future Tests (+/- 45 days) The Plan of Treatment section includes future care activities for the patient [facility] [place] [facility] This section includes future appointments and future orders which are active, pending or scheduled. Future Appointments This section includes appointments that were scheduled to occur 6 months from the date of the Encounter, up to a maximum of 20 appointments. The data comes from all [facility]. Appointment Date/Time Appointment Type Appointme nt Facility Name Oct 29, 2024 10:45 AM [facility]UL[facility] Nov 01, 2024 03:30 PM [facility]ULAT[facility] - MEDICINE [facility] Nov 13, 2024 11:00 AM AMBULATORY - MEDIC[facility] Dec 12[facility] 2024 09:30 AM AMBULATORY - MEDICINE [facility] Mar 18, 2025 09:30 AM AMBULATORY - MEDICINE [facility] Mar 20, 2025 01:00 PM AMBULATORY MEDICINE [facility] Active, Pending, and Scheduled Orders This section includes a listing of several types of active, pending, and scheduled orders, including clinic medications orders, diagnostic test orders, procedure orders and consult orders; where the start date of the order is 45 days before the date of the Encounter or 45 days after the date of theEncounter. The data comes from all [facility]. Test Date/Time Test Type Test Details Facility Name Sep 13, 2024 10:01 AM Consult Order COMMUNITY CARE-UROLOGY Cons [facility] Oct 16, 2024 12:00 AM Laboratory - Chemistry Order URINALYSIS URINE [facility] Oct 16, 2024 12:00 AM Laboratory - Microbiology Order URINE CULTURE(MWROX) URINE CLEAN CATCH [facility] Oct 20, 2024 01:20 PM Consult Order COMMUNITY CARE-GI GENERAL Cons [facility] Social History: Smoking Status (Most current) and Tobacco Use (All prior to encounter date) This section includes the most current, and the historical, smoking and tobacco- related health factors from the [place] facility where the Encounter took place. Current Smoking Status This section includes the most current smoking, or tobacco-related health factor, from the [place] facility where the Encounter took place. Date/Time Current Smoking Status Halie vinson Sep 17, 2024 10:04 AM VA-TOBACCO USE BOB RY DAY CIGARETTES [place] [facility] Tobacco Use History This section includes a history of the smoking, or tobacco-related health factors, that were collected on or before the date of the Encounter. The data comes from the [place] facility where the Encounter took place. Date/Time Smoking Status/Tobac co Use Comment Facility Sep 17, 2024 10:04 AM VA-TOBACCO USE EVERY DAY CIGARETTES [facility] Sep 14, 2023 10:00 AM VA-TOBACCO DOESNT USE WI 30 MIN WAKEUP [facility] Sep 14, 2023 10:00 AM VA-TOBACCO USE 30 YEARS OR MORE [facility] Sep 14, 2023 10:00 AM VA-TOBACCO USE ADVICE [facility] Sep 14, 2023 10:00 AM VA-TOBACCO USE CHILD SUPPORT CASE OFFICER NO [facility] Sep 14, 2023 10:00 AM VA-TOBACCO USE MED NO [facility] Sep 14, 2023 10:00 AM VA-TOBACCO USER EVERY DAY [facility] Aug 02, 2022 01:11 PM VA-TOBACCO USE 30 YEARS OR MORE [facility] Aug 02, 2022 01:11 PM VA-TOBACCO USE ADVICE [facility] Aug 02, 2022 01:11 PM VA-TOBACCO USE CHILD SUPPORT CASE OFFICER NO [facility] Aug 02, 2022 01:11 PM VA-TOBACCO USE MED NO [facility] Aug 02, 2022 01:11 PM VA-TOBACCO USE [place] 30 MIN OF WAKEUP [facility] Aug 02, 2022 01:11 PM VA-TOBACCO USER EVERY DAY [facility] Jul 28, 2021 11:21 AM VA-TOBACCO USE 30 YEARS OR MORE [facility] Jul 28, 2021 11:21 AM VA-TOBACCO USE ADVICE [facility] Jul 28, 2021 11:21 AM VA-TOBACCO USE CHILD SUPPORT CASE OFFICER NO [facility] Jul 28, 2021 11:21 AM VA-TOBACCO USE MED NO [facility] Jul 28, 2021 11:21 AM VA-TOBACCO USE [place] 30 MIN OF WAKEUP [facility] Jul 28, 2021 11:21 AM VA-TOBACCO USER EVERY DAY [facility] Jun 04, 2020 01:59 PM VA-TOBACCO USE 30 YEARS OR MORE [facility] Jun 04, 2020 01:59 PM VA-TOBACCO USE ADVICE [facility] Jun 04, 2020 01:59 PM VA-TOBACCO USE CHILD SUPPORT CASE OFFICER NO [facility] Jun 04, 2020 01:59 PM VA-TOBACCO USE MED NO [facility] Jun 04, 2020 01:59 PM VA-TOBACCO USE [place] 30 MIN OF WAKEUP [facility] Jun 04, 2020 01:59 PM VA-TOBACCO USER EVERY DAY [facility] Mar 30, 2016 10:35 AM CURRENT SMOKER smokes about 1 pack every 3 days for about 45 years [facility] Encounter Notes: All associated encounter notes This section contains the clinical notes associated to the Encounter. 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 /subhash/ LUI WOODY [address] COURT ORDERLY Signed: 10/26/2024 15:03 LUI WOODY NECEDAH
--- OUTSIDE RECORDS SUMMARY | 2024-10-29 10:03 | XMS_ITS ---
Author Name [facility] [place] [facility] [place] [facility] [place] [facility] [place] Address [address] [place] [address] Care Team Providers Care Laboratory Miller Name Role Phone PRIYANKA GUEVARA Primary Care [...] PART A May 15, 2015 PART A [id number] [phone] KINJAL BUCKLEY SR PATIENT MEDICARE (WNR) MEDICARE (M) PART A May 15, 2015 PART A [id number] [phone] KINJAL BUCKLEY SR PATIENT Selected Encounter This section includes the information on record at [place] for the Encounter. Date/Time Encounter Type Encounter Description Reason Provider Source Oct 15, 2024 11:30 AM SYNCH AUDIO-ONLY EST SF 10 TELEPHONE TRIAGE ICD-10-CM R31.9 Hematuria, unspecified EVANS,NUBIA DATA SCIENCES DIRECTOR IHE Encounter Template Text not used by [facility] Assessments - Encounter Diagnoses This section includes the primary and secondary diagnoses documented for the Encounter. Date/Time Primary/Secondary Diagnosis Diagnosis Name Provider Source Oct 15, 2024 11:30 AM PRIMARY Hematuria, unspecified NUBIA EVANS NP [facility] Oct 15, 2024 11:30 AM SECONDARY Chronic kidney disease, stage 3 unspecified [facility] Oct 15, 2024 11:30 AM SECONDARY Urinary tract infection, site not specified NUBIA EVANS NP [facility] Plan of Treatment: Future Appointments (+ 6 months) and Future Tests (+/- 45 days) The Plan of Treatment section includes future care activities for the patient from all [place] [facility]. This section includes future appointments and future orders which are active, pending or scheduled. Future Appointments This section includes appointments that were scheduled to occur 6 months from the date of the Encounter, up to a maximum of 20 appointments. The data comes from all [facility]. Appointment Date/Time Appointment Type Appointme nt Facility Name Oct 26, 2024 11:30 AM AMBULATORY - MEDICINE [facility] Oct 29, 2024 10:45 AM AMBULATORY - MEDICINE [facility] Nov 01, 2024 03:30 PM AMBULATORY - MEDICINE [facility] Nov 13, 2024 11:00 AM [facility] Dec 12, 2024 09:30 AM AMBULATORY - MEDICINE [facility] Mar 18, 2025 09:30 AM AMBULATORY - MEDICINE [facility] Mar 20, 2025 01:00 PM AMBULATORY MEDICINE [facility] Active, Pending, and Scheduled Orders This section includes a listing of several types of active, pending, and scheduled orders, including clinic medications orders, diagnostic test orders, procedure orders and consult orders; where the start date of the order is 45 days before the date of the Encounter or 45 days after the date of theEncounter. The data comes from all [facility]. Test Date/Time Test Type Test Details Facility Name Sep 13, 2024 10:01 AM Consult Order COMMUNITY CARE-UROLOGY Cons Graphic Editor's Choice [facility] Oct 16, 2024 12:00 AM Laboratory - Chemistry [facility] [place] [facility] Oct 16, 2024 12:00 AM Laboratory - Microbiology Order URINE CULTURE(MWROX) URINE CLEAN CATCH SP [place] [facility] [place] [facility] Oct 20, 2024 01:20 PM Consult Order COMMUNITY CARE-GI GENERAL Cons Graphic Editor's [facility] Social History: Smoking Status (Most current) and [...] took place. Date/Time Current Smoking Status Comment [facility] Sep 17, 2024 10:04 AM VA-TOBACCO USE BOB RY DAY CIGARETTES [place] [facility] [place] [facility] Tobacco Use History This section includes a history of the smoking, or tobacco-related health factors, that were collected on or before the date of the Encounter. The data comes from the [place] facility where the Encounter took place. Date/Time Smoking Status/Tobac co Use Comment [facility] Sep 17, 2024 10:04 AM VA-TOBACCO USE EVERY DAY CIGARETTES [place] [facility] [place] [facility] Sep 14, 2023 10:00 AM VA-TOBACCO DOESNT USE WI 30 MIN WAKEUP [place] [facility] [place] [facility] Sep 14, 2023 10:00 AM VA-TOBACCO USE 30 YEARS OR MORE [facility] [place] [facility] Sep 14, 2023 10:00 AM VA-TOBACCO USE ADVICE [facility] [place] [facility] Sep 14, 2023 10:00 AM VA-TOBACCO USE GENERAL SERVICE TECHNICIAN NO [facility] [place] [facility] Sep 14, 2023 10:00 AM VA-TOBACCO USE MED NO [facility] [place] [facility] Sep 14, 2023 10:00 AM VA-TOBACCO USER EVERY DAY [facility] [place] [facility] Aug 02, 2022 01:11 PM VA-TOBACCO USE 30 YEARS OR MORE [facility] [place] [facility] Aug 02, 2022 01:11 PM VA-TOBACCO USE ADVICE [facility] [place] [facility] Aug 02, 2022 01:11 PM VA-TOBACCO USE GENERAL SERVICE TECHNICIAN NO [facility] [place] [facility] Aug 02, 2022 01:11 PM VA-TOBACCO USE MED NO [facility] [place] [facility] Aug 02, 2022 01:11 PM VA-TOBACCO USE WI 30 MIN OF WAKEUP [facility] [place] [facility] Aug 02, 2022 01:11 PM VA-TOBACCO USER EVERY DAY [facility] [place] [facility] Jul 28, 2021 11:21 AM VA-TOBACCO USE 30 YEARS OR MORE [facility] [place] [facility] Jul 28, 2021 11:21 AM VA-TOBACCO USE ADVICE [facility] [place] [facility] Jul 28, 2021 11:21 AM VA-TOBACCO USE GENERAL SERVICE TECHNICIAN NO [facility] [place] [facility] Jul 28, 2021 11:21 AM VA-TOBACCO USE MED NO [facility] [place] [facility] Jul 28, 2021 11:21 AM VA-TOBACCO USE WI 30 MIN OF WAKEUP [facility] [place] [facility] Jul 28, 2021 11:21 AM VA-TOBACCO USER EVERY DAY [facility] [place] [facility] Jun 04, 2020 01:59 PM VA-TOBACCO USE 30 YEARS OR MORE [facility] [place] [facility] Jun 04, 2020 01:59 PM VA-TOBACCO USE ADVICE [facility] [place] [facility] Jun 04, 2020 01:59 PM VA-TOBACCO USE GENERAL SERVICE TECHNICIAN NO [facility] [place] [facility] Jun 04, 2020 01:59 PM VA-TOBACCO USE MED NO [facility] [place] [facility] Jun 04, 2020 01:59 PM VA-TOBACCO USE WI 30 MIN OF WAKEUP [facility] [place] [facility] Jun 04, 2020 01:59 PM VA-TOBACCO USER EVERY DAY [facility] [place] [facility] Mar 30, 2016 10:35 AM CURRENT SMOKER smokes about 1 pack every 3 days for about 45 years [facility] [place] [facility] Encounter Notes: All associated encounter notes This section contains the clinical notes associated to the Encounter. Date/Time Encounter Note(s) Provider Source Oct 15, 2024 11:00 AM TELEHEALTH NOTE: LOCAL TITLE: TELE EMERGENCY CARE NOTE STANDARD TITLE: TELEHEALTH NOTE DATE OF NOTE: OCT 15, 2024@11:00 ENTRY DATE: OCT 15, 2024@11:00:55 AUTHOR: NUBIA EVANS NP EXP COSIGNER: URGENCY: STATUS: COMPLETED This is a tele-emergency care visit to address acute/urgent issues. Definitive care on chronic medical issues will be deferred to routine Primary Care appointment/provider. Consult Origin: Referral from the Clinical Contact Center/Call Center Type of Visit: Phone Visit: Visit conducted by telephone. Location/emergency number confirmed. Emergency contact information was obtained as follows: Patient's current [address] [address] [place] [id number] Patient's Phone Number:PATIENT PHONE - PHONE NUMBER [CELLULAR] - Primary NOK: CHOCO SAXENAEIKA Relation: UNRELATED FRIEND/ [address] [place] [place], [place] [address] Subjective: Mr. Buckley is 74M w/ hx obestiy, preDM, CKD3, GERD, gout, Aflutter, HTN, OA, HL, PTSD, +nicotine, hx prostate ca Report of X 2 days Hx aflutter/on APIXABAN BID 10/13/24 +bright red blood in the urine -streak +blood clots. -initial blood in urine, now regular yellow color No burning w/ urination/malodor/ cloudy +frequency +urgency no trauma or catherter Self treatment: hydration Denies abdominal/flank/groin pain, fever/chill, n/vomiting/d, hematuria, blood in stool, chest pain, palpitation, syncope, SOB/JANSEN, mental status, decrease appetite,weak and sweaty, green or yellow drainage from penis, STD/STI. : No purulent discharge, no rashes, sores or open wounds AO x 3. Recent memory intact, answering questions appropriately. Demonstrates good judgement and insight. ACTIVE PROBLEMS: Code Description E66.9 Obesity ([facility] 929251065) L30.9 Eczema (AO) ([facility] 42742851) R73.03 Prediabetes ([facility] 906473697) N18.30 CKD stage 3 ([facility] 147437293) N52.8 Secondary erectile dysfunction ([facility] 769801090) K21.9 GERD - Gastro-esophageal reflux disease ([facility] 735046651) K76.9 Lesion of liver ([facility] 471732888) Z79.01 Long-term current use of anticoagulant ([facility] 056572121) M10.9 Gout ([facility] 91998203) C61. Primary malignant neoplasm of prostate ([facility] 46223033) R69. myocardial perfusion scan (ICD-10-CM R69.) R69. Cardiac pacemaker in situ ([facility] 528976776) I48.92 Atrial flutter ([facility] 3903189) R97.20 Elevated PSA ([facility] 771036050) Z12.11 Screening for malignant neoplasm of colon done ([facility] [id number]) F19.21 H/O: recreational drug use ([facility] 499892856) F10.11 History of alcohol abuse ([facility] 676002031) I10. Hypertension ([facility] 32593301) M15.9 Osteoarthritis of multiple joints ([facility] 175373121) 367.9 Refractive error (ICD-9-CM 367.9) 365.01 Open Angle Glaucoma Suspect (ICD-9-CM 365.01) E78.5 Hyperlipidemia ([facility] 76240036) F17.200 Nicotine dependence ([facility] 68634510) F43.10 PTSD - Post-traumatic stress disorder ([facility] 18963534) ALLERGIES/ADR: Patient has answered NKA Active Outpatient Medications (including Supplies): ALLOPURINOL 300MG TAB TAKE ONE TABLET BY MOUTH ONCE DAILY ACTIVE Indication: FOR GOUT AMLODIPINE BESYLATE 10MG TAB TAKE ONE TABLET BY MOUTH ONCE ACTIVE DAILY FOR BLOOD PRESSURE/HEART, DO NOT TAKE WITH GRAPEFRUIT JUICE Indication: FOR HIGH BLOOD PRESSURE APIXABAN 5MG TAB TAKE ONE TABLET BY MOUTH TWICE DAILY ACTIVE (S) Indication: FOR PREVENTION OF BLOOD CLOTS ATORVASTATIN CALCIUM 40MG TAB TAKE ONE-HALF TABLET BY ACTIVE MOUTH AT BEDTIME Indication: FOR HIGH CHOLESTEROL BISACODYL 5MG EC TAB TAKE TWO TABLETS BY MOUTH AT BEDTIME ACTIVE FOR BOWELS - LAXATIVE COAL TAR 2% SHAMPOO SHAMPOO SUFFICIENT AMOUNT TOPICALLY ACTIVE TWICE A WEEK NEEDED Indication: FOR SEBORRHEIC DERMATITIS METOPROLOL SUCCINATE 50MG SA TAB TAKE ONE TABLET BY MOUTH ACTIVE (S) ONCE DAILY FOR BLOOD PRESSURE/HEART OMEPRAZOLE 20MG EC CAP TAKE TWO CAPSULES BY MOUTH ONCE ACTIVE DAILY OXYBUTYNIN CHLORIDE 10MG SA TAB TAKE ONE TABLET BY MOUTH ACTIVE ONCE DAILY FOR BLADDER INSTABILITY Indication: FOR FREQUENT URINATION PSYLLIUM ORAL PWD TAKE 1 TABLESPOONFUL BY MOUTH ONCE DAILY ACTIVE (MIX WITH AT LEAST 8OZ. OF WATER OR OTHER FLUID) SILDENAFIL CITRATE 100MG TAB TAKE ONE TABLET BY MOUTH ONCE ACTIVE DAILY NEEDED TAKE 1 HOUR PRIOR TO SEXUAL ACTIVITY Indication: FOR ERECTILE DYSFUNCTION Current medications reviewed with patient/caregiver and reconciliation of medications related to today's visit completed, including non-VA medications and discrepancies, if identified, were addressed. Medication changes and the importance of medication management were reviewed with the patient/caregiver today based on individual needs. Patient/caregiver acknowledged understanding of instructions as stated. Objective: Reason for Referral: Genitourinary Assessment/Impression: +hematuria - intermittent/mild-scant +UTI? +hx CKD3 and prostate ca Plan: -On the date of the encounter, I spent 18 minutes total time on some or all of the following: chart review, history, treatment planning, education and counseling of the patient/family/healthcare economics manager, placing orders, communicating with other health care providers, and documentation in the electronic health record. I also spent >10 minutes of medical discussion with the patient during this encounter. -Pt agree to continue self care: hydration, cranberry juice, rest, activities as tolerated. -Pt agree to go ER if worsen symptoms/pain, fever, chill, sob, jansen, hematuria, cp, palpitation, syncope, dysuria. -ORder UA/UC -Notify PAT team Plan: Issue resolved with Tele Emergency Care appointment Patient verbalizes understanding of the care plan Time spent in telephone/video visit: 18 /es/ NUBIA ALMODOVAR-BC VISN 1 Clinical Contact Center Signed: 10/15/2024 11:38 Receipt Acknowledged By: * AWAITING SIGNATURE * PRIYANKA GUEVARA 10/15/2024 12:20 /es/ SHANI KEENAN RN-BC REGISTERED NURSE NUBIA EVANS NP [place] [facility]
--- OUTSIDE RECORDS SUMMARY | 2024-10-29 10:03 | XMS_ITS | Encounter Summary ---
Author Name [facility] [place] Address [address] [place] [address] Care Team Providers Care Dragline Operator Name Role Phone PRIYANKA GUEVARA Primary Care [...] PART A May 15, 2015 PART A [id number] KINJAL LAW SR PATIENT MEDICARE (WNR) MEDICARE (M) PART A May 15, 2015 PART A [id number] [phone] [id number] KINJAL LAW SR PATIENT Selected Encounter This section includes the information on record at [place] for the Encounter. Date/Time Encounter Type Encounter Description Reason Pro vider Source Oct 15, 2024 07:31 AM Outpatient Encounter TELEPHONE TRIAGE IHE Encounter Template Text not used by [facility] Plan of Treatment: Future Appointments (+ 6 months) and Future Tests (+/- 45 days) The Plan of Treatment section includes future care activities for the patient from all [place] [facility] This section includes future appointments and [...] 26, 2024 11:30 AM AMBULATORY - MEDICINE [facility] Oct 29, 2024 10:45 AM AM[facility]ULATORY [facility] [place] [facility] Nov 01, 2024 03:30 PM AMBULATORY - MEDICINE [facility] Nov 13, 2024 11:00 AM AMBULATORY - MEDICINE [place] C [place] [facility] [place] [facility] Dec 12, 2024 09:30 AM AMBULATORY - MEDICINE [facility] Mar 18, 2025 09:30 AM AMBULATORY - MEDICINE [facility] Mar 20, 2025 01:[address] [facility] Active, Pending, and Scheduled Orders This section includes a listing of several types of active, pending, and scheduled orders, including clinic medications orders, diagnostic test orders, procedure orders and consult orders; where the start date of the order is 45 days before the date of the Encounter or 45 days after the date of theEncounter. The data comes from all [facility]. Test Date/Time Test Type Test Details Facility Name Sep 13, 2024 10:01 AM Consult Order COMMUNITY CARE-UROLOGY Cons Tooth Cutter Clutch's Choice [facility] Oct 16, 2024 12:00 AM Laboratory - Chemistry [facility] [place] [facility] Oct 16, 2024 12:00 AM Laboratory - Microbiology Order URINE CULTURE(MWROX) URINE CLEAN CATCH [facility] Oct 20, 2024 01:20 PM Consult Order COMMUNITY CARE-GI GENERAL Cons Tooth Cutter Clutch's [facility] Social History: Smoking Status (Most current) [...] took place. Date/Time Current Smoking Status Comment Facil ity Sep 17, 2024 10:04 AM VA-TOBACCO USE BOB RY DAY CIGARETTES [place] [facility] [place] [facility] Tobacco Use History This section includes a history of the smoking, or tobacco-related health factors, that were collected on or before the date of the Encounter. The data comes from the [place] facility where the Encounter took place. Date/Time Smoking Status/Tobac co Use Comment Facility Sep 17, 2024 10:04 AM VA-TOBACCO USE EVERY DAY CIGARETTES [facility] [place] [facility] Sep 14, 2023 10:00 AM VA-TOBACCO DOESNT USE WI 30 MIN WAKEUP [facility] [place] [facility] Sep 14, 2023 10:00 AM VA-TOBACCO USE 30 YEARS OR MORE [facility] [place] [facility] Sep 14, 2023 10:00 AM VA-TOBACCO USE ADVICE [facility] [place] [facility] Sep 14, 2023 10:00 AM VA-TOBACCO USE MOLDER FOAM RUBBER NO [facility] [place] [facility] Sep 14, 2023 10:00 AM VA-TOBACCO USE MED NO [facility] [place] [facility] Sep 14, 2023 10:00 AM VA-TOBACCO USER EVERY DAY [facility] [place] [facility] Aug 02, 2022 01:11 PM VA-TOBACCO USE 30 YEARS OR MORE [facility] [place] [facility] Aug 02, 2022 01:11 PM VA-TOBACCO USE ADVICE [place] [facility] [place] [facility] Aug 02, 2022 01:11 PM VA-TOBACCO USE MOLDER FOAM RUBBER NO [facility] [place] [facility] Aug 02, 2022 01:11 PM VA-TOBACCO USE MED NO [facility] [place] [facility] Aug 02, 2022 01:11 PM VA-TOBACCO USE WI 30 MIN OF WAKEUP [facility] [place] [facility] Aug 02, 2022 01:11 PM VA-TOBACCO USER EVERY DAY [facility] [place] [facility] Jul 28, 2021 11:21 AM VA-TOBACCO USE 30 YEARS OR MORE [facility] [place] [facility] Jul 28, 2021 11:21 AM VA-TOBACCO USE ADVICE [facility] [place] [facility] Jul 28, 2021 11:21 AM VA-TOBACCO USE MOLDER FOAM RUBBER NO [facility] [place] [facility] Jul 28, 2021 11:21 AM VA-TOBACCO USE MED NO [facility] [place] [facility] Jul 28, 2021 11:21 AM VA-TOBACCO USE WI 30 MIN OF WAKEUP [facility] [place] [facility] Jul 28, 2021 11:21 AM VA-TOBACCO USER EVERY DAY [facility] [place] [facility] Jun 04, 2020 01:59 PM VA-TOBACCO USE 30 YEARS OR MORE [facility] [place] [facility] Jun 04, 2020 01:59 PM VA-TOBACCO USE ADVICE [facility] [place] [facility] Jun 04, 2020 01:59 PM VA-TOBACCO USE MOLDER FOAM RUBBER NO [facility] [place] [facility] Jun 04, 2020 01:59 PM VA-TOBACCO USE MED NO [facility] [place] [facility] Jun 04, 2020 01:59 PM VA-TOBACCO USE WI 30 MIN OF WAKEUP [facility] [place] [facility] Jun 04, 2020 01:59 PM VA-TOBACCO USER EVERY DAY [facility] [place] [facility] Mar 30, 2016 10:35 AM CURRENT SMOKER smokes about 1 pack every 3 days for about 45 years [place] [facility] [place] [facility] Encounter Notes: All associated encounter notes This section contains the clinical notes associated to the Encounter. Date/Time Encounter Note(s) Provider Source Oct 15, 2024 07:31 AM RN PROGRESS NOTE: LOCAL TITLE: CCC: CLINICAL TRIAGE STANDARD TITLE: RN PROGRESS NOTE DATE OF NOTE: OCT 15, 2024@07:31:51 ENTRY DATE: OCT 15, 2024@07:31:51 AUTHOR: SEGUNDO GRANT COSIGNER: URGENCY: STATUS: COMPLETED Patient Demographics Patient Name: KINJAL LAW Patient Primary Address: [address] [place] [address] Patient Primary Phone: [phone] Patient : 1950 Patient Age: 74 Caller/Recipient Relation to Patient: Self Caller Name: KINJAL LAW Emergency Contact: BREANNA MICHAEL Triage Summary Conducted triage/discussed symptoms Pain Score: 0 (No Pain) Utilized the Triage Tool: Yes Chief Complaint: Blood In The Urine System WHEN: Within 8 Hours Nurse's Recommendation / WHEN: Within 8 Hours System WHERE: Urgent care center Nurse's Recommendation / WHERE: Virtual Video Visit Patient Disposition Patient/Caregiver agrees to plan of care: Yes Nursing Plan and Disposition [facility] Transferred patient to [facility] Other Description: V1 [facility] JEWEL SORTER Nurse Summary Nurse Summary: Vet called c/o blood in the urine x 2 days. Reported he noticed some blood clots. Reported initially is blood but then is regular yellow color urine. Vet is on blood thinners. Hx. Prostate CA, ED, CKD, A-flutter Denies sob, cp, lower/back pain, burning sensation Vet needs to seek medical care in 2-8 hrs Advised to call back if sxs worsen Call was warm transferred to the V2 manufacturing scheduler for further assistance Clinical Contact Center Codes Clinic/Location: V1 [facility] PHONE [facility] RN Decision Support System Output: Triage Complete Triage Date: 10/15/2024, 07:26 AM Triage Note: Decision Support Tool Used: GACC Phone Triage Tue, 15 Oct 2024 12:26:09 +0000 [facility] Demographics 74 y/o Male Results CC: Blood In The Urine Software suggested: Within 8 Hours Software suggested follow-up location: Urgent care center Values and Measures Duration of CC: 2 Days Positive Responses HPI: bladder feels full HPI: hematuria, with clots VS: temperature not taken Negative Responses Denies: HPI: abdominal pain, lower Denies: HPI: back pain or flank pain, new Denies: HPI: dysuria Denies: HPI: incomplete bladder emptying, new Denies: HPI: increased urinary frequency Denies: HPI: urinary urgency, constant Denies: HPI: vomiting Denies: HPI: weakness, with diaphoresis Denies: MEDS: antibiotic Education Verbal Education Provided for: [facility] IMPORTANT: This note was created by [facility] Clinical Contact Center staff. Please do not alert the staff member by adding them as a signer for future communications. Alerts are not monitored by this user. /subhash/ SEGUNDO ROBERTO 2 [facility] PROPOSAL WRITER Signed: 10/15/2024 07:31 Receipt Acknowledged By: 10/15/2024 08:21 /subhash/ POPEYE BENEDICT, BSN RN-BC REGISTERED NURSE 10/15/2024 11:55 /es/ BANDAR MORALES LPN Licensed Practical Nurse SEGUNDO GRANT [facility]
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
--- OUTSIDE RECORDS SUMMARY | 2024-10-29 10:03 | XMS_ITS | Encounter Summary ---
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 Date/Time Encounter Type Encounter Description Reason Pro vider Source Oct 15, 2024 10:45 AM Outpatient Encounter PRIMARY CARE/MEDICINE IHE Encounter Template Text not used by VA Plan of Treatment: Future Appointments (+ 6 months) and Future Tests (+/- 45 days) The Plan of Treatment section includes future care activities for the patient from all [place] [facility]. This section includes future appointments and future orders which are active, pending or scheduled. Future Appointments This section includes appointments that were scheduled to occur 6 months from the date of the Encounter, up to a maximum of 20 appointments. The data comes from all [facility]. Appointment Date/Time Appointment Type Appointme nt Facility Name Oct 26, 2024 11:30 AM AMBULATORY - MEDICINE [facility] Oct 29, 2024 10:45 AM AMBULATORY - MEDICINE [place] C [place] [facility] Nov 01, 2024 03:30 PM AMBULATORY - MEDICINE [facility] Nov 13, 2024 11:00 AM AMBULATORY MEDICINE [place] C [place] [facility] Dec 12, 2024 09:30 AM AMBULATORY - MEDICINE [facility] Mar 18, 2025 09:30 AM AMBULATORY - MEDICINE [facility] Mar 20, 2025 01:00 PM AMBULATORY MEDICINE [place] C [place] [facility] Active, Pending, and Scheduled Orders This section includes a listing of several types of active, pending, and scheduled orders, including clinic medications orders, diagnostic test orders, procedure orders and consult orders; where the start date of the order is 45 days before the date of the Encounter or 45 days after the date of theEncounter. The data comes from all [facility]. Test Date/Time Test Type Test Details Facility Name Sep 13, 2024 10:01 AM Consult Order COMMUNITY CARE-UROLOGY Cons [facility] Oct 16, 2024 12:00 AM Laboratory - Microbiology Order URINE CULTURE(MWROX) URINE CLEAN CATCH [facility] Oct 16, 2024 12:00 AM Laboratory - Chemistry Order [facility] Oct 20, 2024 01:20 PM Consult Order COMMUNITY CARE-GI GENERAL Cons [facility] Social History: Smoking Status (Most current) and Tobacco Use (All prior to encounter date) This section includes the most current, and the historical, smoking and tobacco- related health factors from the [place] facility where the Encounter took place. Current Smoking Status This section includes the most current smoking, or tobacco-related health factor, from the [place] facility where the Encounter took place. Date/Time Current Smoking Status Comment Facil ity Sep 17, 2024 10:04 AM VA-TOBACCO USE BOB RY DAY CIGARETTES [place] [facility] [place] [facility] Tobacco Use History This section includes a history of the smoking, or tobacco-related health factors, that were collected on or before the date of the Encounter. The data comes from the [place] facility where the Encounter took place. 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 [facility] [place] [facility] Sep 14, 2023 10:00 AM VA-TOBACCO USE MED NO [facility] [place] [facility] Sep 14, 2023 10:00 AM VA-TOBACCO USER EVERY DAY [facility] [place] [facility] Aug 02, 2022 01:11 PM VA-TOBACCO USE 30 YEARS OR MORE [facility] [place] [facility] Aug 02, 2022 01:11 PM VA-TOBACCO USE ADVICE [facility] [facility] Aug 02, 2022 01:11 PM VA-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 [facility] [place] [facility] Aug 02, 2022 01:11 PM VA-TOBACCO USE MED NO [facility] [place] [facility] Aug 02, 2022 01:11 PM VA-TOBACCO USE WI 30 MIN OF WAKEUP [facility] [facility] Aug 02, 2022 01:11 PM VA-TOBACCO USER EVERY DAY [facility] [place] [facility] Jul 28, 2021 11:21 AM VA-TOBACCO USE 30 YEARS OR MORE [facility] [place] [facility] Jul 28, 2021 11:21 AM VA-TOBACCO USE ADVICE [place] [facility] [place] [facility] Jul 28, 2021 11:21 AM VA-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 [facility] [facility] Jul 28, 2021 11:21 AM VA-TOBACCO USE MED NO [facility] [place] [facility] Jul 28, 2021 11:21 AM VA-TOBACCO USE WI 30 MIN OF WAKEUP [facility] [facility] Jul 28, 2021 11:21 AM VA-TOBACCO USER EVERY DAY [facility] [place] [facility] Jun 04, 2020 01:59 PM VA-TOBACCO USE 30 YEARS OR MORE [facility] [place] [facility] Jun 04, 2020 01:59 PM VA-TOBACCO USE ADVICE [place] [facility] [facility] Jun 04, 2020 01:59 PM VA-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 Date/Time Encounter Note(s) Provider Source Oct 15, 2024 10:45 AM MEDICATION MGT NOT E: LOCAL TITLE: MEDICATION RENEWAL STANDARD TITLE: MEDICATION MGT NOTE DATE OF NOTE: OCT 15, 2024@10:45 ENTRY DATE: OCT 15, 2024@10:46:03 AUTHOR: POPEYE BENEDICT EXP COSIGNER: URGENCY: STATUS: COMPLETED Please renew for mail GLYCERIN (ADULT) SUPP,RTL GLYCERIN (ADULT) RTL SUPP INSERT 1 SUPPOSITORY RECTALLY ONCE DAILY NEEDED Quantity: 25 Refills: 11 Indication: FOR CONSTIPATION /es/ SHANI KEENAN RN-BC REGISTERED NURSE Signed: 10/15/2024 10:46 Receipt Acknowledged By: 10/23/2024 14:22 /es/ Priyanka Guevara MD MD PRIMARY CARE PHYSICIAN POPEYE BENEDICT
--- OUTSIDE RECORDS SUMMARY | 2024-10-29 10:04 | XMS_ITS ---
Author Name [facility] [place] [facility] [place] Organization [facility] [place] Address [address] [place] [address] Care Team Providers Care Websphere Administrator Name Role Phone PRIYANKA GUEVARA Primary Care [...] PART A May 15, 2015 PART A [id number] KINJAL LAW SR PATIENT MEDICARE (WNR) MEDICARE (M) PART A May 15, 2015 PART A [id number] [phone] KINJAL LAW SR PATIENT Selected Encounter This section includes the information on record at [place] for the Encounter. Date/Time Encounter Type Encounter Description Reason Pro vider Source Oct 19, 2024 09:51 AM Outpatient Encounter COMMUNITY CARE CONSULT IHE Encounter Template Text not used by VA Plan of Treatment: Future Appointments (+ 6 months) and Future Tests (+/- 45 days) The Plan of Treatment section includes future care activities for the patient from all [place] [facility]. This section includes future appointments and future orders which are active, pending or scheduled. Future Appointments This section includes appointments that were scheduled to occur 6 months from the date of the Encounter, up to a maximum of 20 appointments. The data comes from all [facility] facilities. Appointment Date/Time Appointment Type Appointme nt Facility Name Oct 26, 2024 11:30 AM [facility] Oct 29, 2024 10:45 AM [facility] [facility] [facility] Nov 01, 2024 03:30 PM [facility] Nov 13, 2024 11:00 AM AM[place]IC[place] [facility] Dec 12, 2024 09:30 AM [facility] Mar 18, 2025 09:30 AM AMBULATORY - MEDICINE [facility] Mar 20, 2025 01:00 PM AMBULATORY MEDICINE [facility] NTRL WSN [facility] Active, Pending, and Scheduled Orders This section includes a listing of several types of active, pending, and scheduled orders, including clinic medications orders, diagnostic test orders, procedure orders and consult orders; where the start date of the order is 45 days before the date of the Encounter or 45 days after the date of theEncounter. The data comes from all [facility]. Test Date/Time Test Type Test Details Facility Name Sep 13, 2024 10:01 AM Consult Order COMMUNITY CARE-UROLOGY Cons Insurance Claims Examiner's [facility] Oct 16, 2024 12:00 AM Laboratory - Chemistry [facility] Oct 16, 2024 12:00 AM Laboratory - Microbiology Order URINE CULTURE(MWROX) [facility] Oct 20, 2024 01:20 PM Consult Order COMMUNITY CARE-GI GENERAL Cons Insurance Claims Examiner's [facility] Social History: Smoking Status (Most current) and [...] AM VA-TOBACCO USE BOB RY DAY CIGARETTES [place] [facility] Tobacco Use History This section includes a history of the smoking, or tobacco-related health factors, that were collected on or before the date of the Encounter. The data comes from the [place] facility where the Encounter took place. Date/Time Smoking Status/Tobac co Use Comment [facility] Sep 17, 2024 10:04 AM VA-TOBACCO USE EVERY DAY CIGARETTES [place] [facility] [place] [facility] Sep 14, 2023 10:00 AM VA-TOBACCO DOESNT USE WI 30 MIN WAKEUP [place] [facility] [place] [facility] Sep 14, 2023 10:00 AM VA-TOBACCO USE 30 YEARS OR MORE [place] [facility] [place] [facility] Sep 14, 2023 10:00 AM VA-TOBACCO USE ADVICE [place] [facility] Sep 14, 2023 10:00 AM VA-TOBACCO USE MANAGER PAYMENT NO [place] [facility] Sep 14, 2023 10:00 AM VA-TOBACCO USE MED NO [place] [facility] [place] [facility] Sep 14, 2023 10:00 AM VA-TOBACCO USER EVERY DAY [place] [facility] [place] [facility] Aug 02, 2022 01:11 PM VA-TOBACCO USE 30 YEARS OR MORE [place] [facility] [place] [facility] Aug 02, 2022 01:11 PM VA-TOBACCO USE ADVICE [place] [facility] Aug 02, 2022 01:11 PM VA-TOBACCO USE MANAGER PAYMENT NO [facility] [place] [facility] Aug 02, 2022 01:11 PM VA-TOBACCO USE MED NO [place] [facility] [place] [facility] Aug 02, 2022 01:11 PM VA-TOBACCO USE WI 30 MIN OF WAKEUP [facility] [place] [facility] Aug 02, 2022 01:11 PM VA-TOBACCO USER EVERY DAY [place] [facility] [place] [facility] Jul 28, 2021 11:21 AM VA-TOBACCO USE 30 YEARS OR MORE [facility] [place] [facility] Jul 28, 2021 11:21 AM VA-TOBACCO USE ADVICE [place] [facility] [place] [facility] Jul 28, 2021 11:21 AM VA-TOBACCO USE MANAGER PAYMENT NO [facility] [place] [facility] Jul 28, 2021 11:21 AM VA-TOBACCO USE MED NO [place] [facility] [place] [facility] Jul 28, 2021 11:21 AM VA-TOBACCO USE WI 30 MIN OF WAKEUP [facility] [place] [facility] Jul 28, 2021 11:21 AM VA-TOBACCO USER EVERY DAY [place] [facility] [place] [facility] Jun 04, 2020 01:59 PM VA-TOBACCO USE 30 YEARS OR MORE [facility] [place] [facility] Jun 04, 2020 01:59 PM VA-TOBACCO USE ADVICE [facility] [place] [facility] Jun 04, 2020 01:59 PM VA-TOBACCO USE MANAGER PAYMENT NO [facility] [place] [facility] Jun 04, 2020 01:59 PM VA-TOBACCO USE MED NO [place] [facility] [place] [facility] Jun 04, 2020 01:59 PM VA-TOBACCO USE WI 30 MIN OF WAKEUP [facility] [place] [facility] Jun 04, 2020 01:59 PM VA-TOBACCO USER EVERY DAY [place] [facility] [place] [facility] Mar 30, 2016 10:35 AM CURRENT SMOKER smokes about 1 pack every 3 days for about 45 years [place] [facility] Encounter Notes: All associated encounter notes This section contains the clinical notes associated to the Encounter. Date/Time Encounter Note(s) Provider Source Oct 19, 2024 09:51 AM ADMINISTRATIVE NOT E: LOCAL TITLE: ADMINISTRATIVE NOTE STANDARD TITLE: ADMINISTRATIVE NOTE DATE OF NOTE: OCT 19, 2024@09:51 ENTRY DATE: OCT 19, 2024@09:55:45 AUTHOR: SIDNEY SETHI COSIGNER: URGENCY: STATUS: COMPLETED SUBJECT: follow up office visit ADMINISTRATIVE NOTE Has ADDENDA [place] has been scheduled for a follow up office visit 10/29/2024 @ 10:45 for bleeding & hemorrhoids Current consult has and a new consult is needed if approved [facility] [address] [place] [address], [address] [place], [place] PH: [phone] FX: [phone] TAX ID [id number] /subhash/ SIDNEY SETHI Signed: 10/19/2024 09:55 Receipt Acknowledged By: 10/19/2024 10:42 /es/ ZIGGY AMBRIZ CERTIFIED NURSE PRACTITIONER * AWAITING SIGNATURE * PRIYANKA GUEVARA 10/19/2024 13:23 /es/ SHANI Islas, RN-BC Referral Coordination Initiative Nurse 10/19/2024 10:19 /es/ SHANI KEENAN RN-BC REGISTERED NURSE 10/19/2024 10:45 /es/ BANDAR MORALES LPN Licensed Practical Nurse 10/19/2024 ADDENDUM STATUS: COMPLETED Placed Gastroenterology One continuation of care consult as requested and held for provider review. /subhash/ SHANI KEENAN RN-BC REGISTERED NURSE Signed: 10/19/2024 10:27 [facility]IDNEY SETHI [facility]
--- OUTSIDE RECORDS SUMMARY | 2024-10-29 10:04 | XMS_ITS | Encounter Summary ---
Author Name [facility] [place] [facility] [place] Address [address] [place] [address] Care Team Providers Care Research Contracts Supervisor Name Role Phone PRIYANKA GUEVARA Primary Care [...] PART A May 15, 2015 PART A [id number] [place] LAW SR PATIENT MEDICARE (WNR) MEDICARE (M) PART A May 15, 2015 PART A [id number] [place] LAW SR PATIENT Selected Encounter This section includes the information on record at [place] for the Encounter. Date/Time Encounter Type Encounter Description Reason Pro vider Source Jun 22, 2024 11:53 AM Outpatient Encounter ADMIN PAT ACTIVTIES (MASNONCT) IHE Encounter Template Text not used by [place] Plan of Treatment: Future Appointments (+ 6 months) and Future Tests (+/- 45 days) The Plan of Treatment section includes future care activities for the patient from all [place] [facility] This section includes future appointments and future orders which are active, pending or scheduled. Future Appointments This section includes appointments that were scheduled to occur 6 months from the date of the Encounter, up to a maximum of 20 appointments. The data comes from all [facility]. Appointment Date/Time Appointment Type Appointme nt Facility Name Aug 16, 2024 09:00 AM AMBULATORY - MEDICINE [facility] Sep 17, 2024 10:00 AM AMBULATORY - MEDICINE [facility] Sep 28, 2024 09:00 AM AMBULATORY - MEDICINE [place] [facility] Oct 15, 2024 11:30 AM AMBULATORY MEDICINE [place] [facility] Oct 26, 2024 11:30 AM AMBULATORY - MEDICINE [facility] Oct 29, 2024 10:45 AM AMBULATORY MEDICINE [place] [facility] Nov 01, 2024 03:30 PM AM[facility]ULATORY [facility] Nov 13, 2024 11:00 AM AMBULATORY MEDICINE [place] [facility] Dec 12, 2024 09:30 AM AMBULATORY - MEDICINE [facility] Active, Pending, and Scheduled Orders This section includes a listing of several types of active, pending, and scheduled orders, including clinic medications orders, diagnostic test orders, procedure orders and consult orders; where the start date of the order is 45 days before the date of the Encounter or 45 days after the date of theEncounter. The data comes from all [facility]. Test Date/Time Test Type Test Details Facility Name Jun 20, 2024 12:00 AM Laboratory - Chemi str Order MICROALBUMIN CREATININE RATIO PANEL URINE ([facility]ANDOM) [facility] Social History: Smoking Status (Most current) and Tobacco Use (All prior to encounter date) This section includes the most current, and the historical, smoking and tobacco- related health factors from the [place] facility where the Encounter took place. Current Smoking Status This section includes the most current smoking, or tobacco-related health factor, from the [place] facility where the Encounter took place. Date/Time Current Smoking Status Comment [facility] Sep 14, 2023 10:00 AM [place]-TOBACCO DOESNT USE WI 30 MIN WAKEUP [place] [facility] Tobacco Use History This section includes a history of the smoking, or tobacco-related health factors, that were collected on or before the date of the Encounter. The data comes from the [place] facility where the Encounter took place. Date/Time Smoking Status/Tobac co Use Comment Facility Sep 14, 2023 10:00 AM VA-TOBACCO USE 30 YEARS OR MORE [facility] [place] [facility] Sep 14, 2023 10:00 AM VA-TOBACCO USE ADVICE [facility] [place] [facility] Sep 14, 2023 10:00 AM VA-TOBACCO USE JAVA PROJECT MANAGER NO [facility] [place] [facility] Sep 14, 2023 10:00 AM VA-TOBACCO USE MED NO [facility] [place] [facility] Sep 14, 2023 10:00 AM VA-TOBACCO USER EVERY DAY [facility] [place] [facility] Aug 02, 2022 01:11 PM VA-TOBACCO USE 30 YEARS OR MORE [place] [facility] [facility] [place] [facility] Aug 02, 2022 01:11 PM VA-TOBACCO USE ADVICE [facility] [place] [facility] Aug 02, 2022 01:11 PM VA-TOBACCO USE JAVA PROJECT MANAGER NO [facility] [place] [facility] Aug 02, 2022 01:11 PM VA-TOBACCO USE MED NO [facility] [place] [facility] Aug 02, 2022 01:11 PM VA-TOBACCO USE [place] 30 MIN OF WAKEUP [place] [facility] [facility] [place] [facility] Aug 02, 2022 01:11 PM VA-TOBACCO USER EVERY DAY [facility] [place] [facility] Jul 28, 2021 11:21 AM VA-TOBACCO USE 30 YEARS OR MORE [facility] [place] [facility] Jul 28, 2021 11:21 AM VA-TOBACCO USE ADVICE [facility] [place] [facility] Jul 28, 2021 11:21 AM VA-TOBACCO USE JAVA PROJECT MANAGER NO [facility] [place] [facility] Jul 28, 2021 11:21 AM VA-TOBACCO USE MED NO [facility] [place] [facility] Jul 28, 2021 11:21 AM VA-TOBACCO USE [place] 30 MIN OF WAKEUP [facility] [place] [facility] Jul 28, 2021 11:21 AM [facility]BACCO [facility]ER [facility] Jun 04, 2020 01:59 PM VA-TOBACCO USE 30 YEARS OR MORE [place] [facility] Jun 04, 2020 01:59 PM VA-TOBACCO USE ADVICE [facility] Jun 04, 2020 01:59 PM VA-TOBACCO USE JAVA PROJECT MANAGER NO [place] [facility] [facility] Jun 04, 2020 01:59 PM VA-TOBACCO USE MED NO [facility] Jun 04, 2020 01:59 PM VA-TOBACCO USE [place] 30 MIN OF WAKEUP [facility] Jun 04, 2020 01:59 PM VA-TOBACCO USER EVERY DAY [facility] Mar 30, 2016 10:35 AM CURRENT SMOKER smokes about 1 pack every 3 days for about 45 years [facility] Encounter Notes: All associated encounter notes This section contains the clinical notes associated to the Encounter. Date/Time Encounter Note(s) Provider Source Jun 22, 2024 11:53 AM PHARMACY NOTE: LOCAL TITLE: PHARMACY CUSTOMER CARE MEDICATION RENEWAL STANDARD TITLE: PHARMACY NOTE DATE OF NOTE: JUN 22, 2024@11:53 ENTRY DATE: JUN 22, 2024@11:53:24 AUTHOR: PEBBLES BURNS EXP COSIGNER: URGENCY: STATUS: COMPLETED Date: Jun Division: [facility] referred by Pharmacy Call Center for medication renewal: Non-controlled/maintenanc e medication Medications requested: [id number] SILDENAFIL CITRATE 100MG TAB Defer to primary care provider To be mailed . Please review and renew if appropriate. *This note was generated by [facility]/[place] Pharmacy Customer Care. If you have any questions or need assistance, do not contact this author. Please refer all questions to your local, on-site pharmacy departments. /subhash/ PEBBLES BURNS CPhT [employer] Traffic [employer] Supervisor, [place]/Pharmacy Customer Care Signed: 06/22/2024 11:53 Receipt Acknowledged By: 06/22/2024 12:21 /subhash/ CARLA KEENANN RN-BC REGISTERED NURSE 06/22/2024 11:57 /subhash/ ZIGGY AMBRIZ CERTIFIED NURSE PRACTITIONER PEBBLES BURNS [facility] L[facility]
--- OUTSIDE RECORDS SUMMARY | 2024-10-29 10:04 | XMS_ITS | Encounter Summary ---
Author Name [facility] [place] [facility] [place] Address [address] [place] [address] Care Team Providers Care Assistant Accounting Manager Name Role Phone PRIYANKA GUEVARA Primary Care [...] PART A May 15, 2015 PART A [id number] KINJAL LAW SR PATIENT MEDICARE (WNR) MEDICARE (M) PART A May 15, 2015 PART A [id number] [phone] KINJAL LAW SR PATIENT Selected Encounter This section includes the information on record at [place] for the Encounter. Date/Time Encounter Type Encounter Description Reason Provider Source Sep 17, 2024 10:00 AM OFFICE O/P EST HI 40 MIN PRIMARY CARE/MEDICINE ICD-10-CM I48.92 Unspecified atrial flutter JD GRAF Encounter Template Text not used by [facility] Assessments - Encounter Diagnoses This section includes the primary and secondary diagnoses documented for the Encounter. Date/Time Primary/Secondary Diagnosis Diagnosis Name Provider Source Oct 20, 2024 12:49 PM PRIMARY Unspecified atrial flutter HOMARJD Alfredo [facility] Oct 20, 2024 12:49 PM SECONDARY Chronic kidney disease, stage 3 unspecified HOMARJD Alfredo [facility] Oct 20, 2024 12:49 PM SECONDARY Essential (primary) hypertension JD GRAF [facility] Oct 20, 2024 12:49 PM SECONDARY Hyperlipidemia, unspecified HOMARJD Alfredo [facility] Oct 20, 2024 12:49 PM SECONDARY alf (current) use of anticoagulants HOMARJD Alfredo [facility] Oct 20, 2024 12:49 PM SECONDARY Nicotine dependence, unspecified, uncomplicated HOMARJD Alfredo [facility] Oct 20, 2024 12:49 PM SECONDARY Personal history of adenomatous and serrated colon polyps JD GRAF [facility] Oct 20, 2024 12:49 PM SECONDARY Prediabetes HOMARJD Alfredo [facility] Oct 20, 2024 12:49 PM SECONDARY Presence of cardiac pacemaker JD GRAF [facility] Plan of Treatment: Future Appointments (+ 6 months) and Future Tests (+/- 45 days) The Plan of Treatment section includes future care activities for the patient from all [facility]. This section includes future appointments and future orders which are active, pending or scheduled. Future Appointments This section includes appointments that were scheduled to occur 6 months from the date of the Encounter, up to a maximum of 20 appointments. The data comes from all [facility]. Appointment Date/Time Appointment Type Appointme nt Facility Name Sep 28, 2024 09:00 AM [place] [facility] Oct 15, 2024 11:30 AM [place] [facility] Oct 26, 2024 11:30 AM [facility] - MEDICINE [facility] Oct 29, 2024 10:45 AM [place] [facility] Nov 01, 2024 03:30 PM [facility] Nov 13, 2024 11:00 AM [place] [facility] Dec 12, 2024 09:30 AM AMBULATORY - MEDICINE [facility] Active, Pending, and [...] of theEncounter. The data comes from all [place] treatment facilities. Test Date/Time Test Type Test Details Facility Name Sep 13, 2024 10:01 AM Consult Order [facility]-UROLOGY Cons Electroencephalograph Technician's [facility] Oct 16, 2024 12:00 AM Laboratory - Chemistry Order URINALYSIS URINE SP [facility] Oct 16, 2024 12:00 AM Laboratory - Microbiology Order URINE CULTURE(MWROX) URINE CLEAN CATCH SP [facility] Oct 20, 2024 01:20 PM Consult Order [facility]-GI GENERAL [facility] Electroencephalograph Technicians [facility] Lab Results: +/- 30 days of the encounter This section includes the Chemistry and Hematology Lab Results on record with [place] for the patient. Radiology Reports and Pathology Reports are provided separately, in subsequent sections. Lab Results This section contains the Chemistry/Hematology Results that were resulted 30 days before or 30 daysafter the date of the Encounter. Date/Time Source Result Type Result - Unit Interpretation Reference Range Comment Sep 04, 2024 11:22 AM [facility] LIPID PANEL FASTING Specimen Type: SERUM No comment entered. Ordering Provider: JD GRAF Report Released Date/Time: Jun 13, 2024 03:11 PM Reporting Lab: [address] [address] Performing Lab: [address] [address] CHOLESTEROL 272 mg/dL H TRIGLYCERIDE 188 mg/dL H 0-150 LDL calculated 202 mg/dL H 0-129 CHOL/HDL 8.5 HDL CHOLESTEROL 32 mg/dL L 40-60 Sep 04, 2024 11:22 AM [facility] HEMOGLOBIN A1C PANEL Specimen Type: BLOOD Comment: Values obtained from A1C measurements can vary. For atypical A1C assays, a reported value of 7.0 could actually be between 6.72 and 7.28 if measured by a reference method. A reported value of 9.0 could actually be between 8.73 and 9.27. Ref: http://www.ngs p.org/CAPdata. asp Ordering Provider: JD GRAF Report Released Date/Time: Jun 13, 2024 03:11 PM Reporting Lab: [address] [address] Performing [facility]: [facility] [address] [address] HEMOGLOBIN A1C 6.2 H 4.0-5.6 Sep 04, 2024 11:22 AM [facility] TSH Specimen Type: SERUM No comment entered. Ordering Provider: JD GRAF Report Released Date/Time: Jun 13, 2024 03:11 PM Reporting Lab: [address] [address] Performing Lab: [address] [address] TSH 1.89 u[IU]/mL 0.35-5.00 Sep 04, 2024 11:22 AM [facility] LIVER FUNCTION Specimen Type: SERUM No comment entered. Ordering Provider: JD GRAF Report Released Date/Time: Jun 13, 2024 03:11 PM Reporting Lab: [address] [address] Performing Lab: [address] [address] PROTEIN,TOTAL 7.5 g/dL 6.0-8.3 ALBUMIN 4.0 g/dL 3.5-5.0 ALKALINE PHOSPHATASE 66 U/L 40-150 AST 16 U/L 5-34 ALT 21 U/L BILIRUBIN, TOTAL 0.5 mg/dL 0.2-1.2 Sep 04, 2024 11:22 AM [facility] BASIC METABOLIC PANEL (fasting) Specime n Type: SERUM No comment entered. Ordering Provider: JD GRAF Report Released Date/Time: Jun 13, 2024 03:11 PM Reporting Lab: [address] [address] Performing Lab: [address] [address] UREA NITROGEN 24 mg/dL 7-25 GLUCOSE 86 mg/dL 65-100 SODIUM 138 mmol/L 135-145 POTASSIUM 4.9 mmol/L 3.5-5.0 CHLORIDE 105 mmol/L 100-110 CO2 23 meq/L 20-30 CREATININE, Serum 1.41 mg/dL H 0.50-1.40 eGFR(CKD-EPI 2020) 52 mL/min L >60 Sep 04, 2024 11:22 AM [facility] CBC AND DIFF (AUTO) Specimen Type: BLOOD No comment entered. Ordering Provider: JD GRAF Report Released Date/Time: Jun 13, 2024 03:11 PM Reporting Lab: [facility] [address] [facility] [address] Performing Lab: [facility] [address] [facility] [address] WBC 3.34 10*3/uL L 4.50-11.00 RBC 4.30 10*6/uL 4.23-5.66 HGB 13.6 g/dL 12.8-17 HCT 40.9 39.2-50.4 MCV 95.1 fL 82-99 MCHC 33.3 g/dL 30.8-35.1 PLT 181 10*3/uL 140-360 RDW-CV 15.6 12.0-16.0 MONO, ABS 0.39 10*3/uL 0.30-1.10 MCH 31.6 pg 26.2-32.6 NEUT % 65.2 43.7-75.8 LYMPH % 18.3 14.0-42.3 MONO % 11.7 5.1-13.7 EOS % 3.3 0.4-6.8 BASO % 0.3 0.1-2.0 NEUT, ABS 2.18 10*3/uL L 2.20-7.60 LYMPH, ABS 0.61 10*3/uL L 1.00-3.20 EOS, ABS 0.11 10*3/uL 0.03-0.44 BASO, ABS 0.01 10*3/uL 0.01-0.13 IMMATURE GRAN % 1.2 H 0.0-0.7 IMMATURE GRAN, ABS 0.04 10*3/uL 0.00-0.06 NRBC % 0.0 0.0-0.0 NRBC, ABS 0.00 10*3/uL 0.00-0.00 Sep 04, 2024 11:21 AM [facility] ALPHA-FETOPROTEIN Specimen Type: SERUM No comment entered. Ordering Provider: JD GRAF Report Released Date/Time: Jun 20, 2024 12:48 PM Reporting Lab: [facility] [address] [facility] [address] Performing Lab: [facility] [address] [address] ALPHA-FETOPROT EIN 3.97 ng/mL 0-10 Sep 04, 2024 11:21 AM [facility] VITAMIN D (25-OH) Specimen Type: SERUM No comment entered. Ordering Provider: JD GRAF Report Released Date/Time: Jun 20, 2024 12:48 PM Reporting Lab: [facility] [address] [facility] [address] Performing Lab: [facility] [address] [facility] [address] VITAMIN D (25-OH) 17 ng/mL L 20-50 Vital Signs: All taken on the encounter date This section contains inpatient and outpatient Vital Signs collected on the date of the Encounter. Date/Time Temperature Pulse Blood Pressure Respiratory Rate SP02 Pain Height Weight Body Mass Index Source Sep 17, 2024 10:02 AM 97.8 66 137/83 19 95 70.5 228 32 [facility] IELD Social History: Smoking Status (Most current) [...] place. Date/Time Current Smoking Status Comment Davey ity Sep 17, 2024 10:00 AM VA-TOBACCO SCREEN FOLLOW-UP [facility] Tobacco Use History This section includes a history of the smoking, or tobacco-related health factors, that were collected on or before the date of the Encounter. The data comes from the [place] facility where the Encounter took place. Date/Time Smoking Status/Tobacco Use Comment F acility Sep 17, 2024 10:00 AM VA-TOBACCO USE ADVICE [facility] Sep 17, 2024 10:00 AM VA-TOBACCO USE WASTE REDUCTION COORDINATOR NO [facility] Sep 17, 2024 10:00 AM VA-TOBACCO USE MED NO [facility] Feb 01, 2019 08:32 AM VA-TOBACCO DOESNT USE WI 30 MIN WAKEUP [facility] Feb 01, 2019 08:32 AM VA-TOBACCO USE 30 YEARS OR MORE [facility] Feb 01, 2019 08:32 AM VA-TOBACCO USE ADVICE [facility] Feb 01, 2019 08:32 AM VA-TOBACCO USE WASTE REDUCTION COORDINATOR NO [facility] Feb 01, 2019 08:32 AM VA-TOBACCO USE MED NO [facility] Feb 01, 2019 08:32 AM VA-TOBACCO USER EVERY DAY [facility] Nov 14, 2017 09:03 AM VA-TOBACCO DOESNT USE WI 30 MIN [facility] Nov 14, 2017 09:03 AM VA-TOBACCO USE 30 YEARS OR MORE [facility] Nov 14, 2017 09:03 AM VA-TOBACCO USE ADVICE [facility] Nov 14, 2017 09:03 AM VA-TOBACCO USE WASTE REDUCTION COORDINATOR NO [facility] Nov 14, 2017 09:03 AM VA-TOBACCO USE MED NO [facility] Nov 14, 2017 09:03 AM VA-TOBACCO USER EVERY DAY [facility] May 16, 2017 10:14 AM CURRENT SMOKER ~3 cigarettes per day [facility] May 16, 2017 10:14 AM V1-PT NOT INTEREST ED IN QUIT TOBACCO USE [facility] Nov 01, 2016 09:00 AM CURRENT SMOKER [facility] Nov 01, 2016 09:00 AM V1-PT NOT INTEREST ED IN QUIT TOBACCO USE [facility] May 03, 2016 01:05 PM V1-PT DECLINES REF TO TOBACCO CESS [facility] May 03, 2016 01:05 PM V1-PT DECLINES TOB ACCO CESSATION [facility] May 03, 2016 01:05 PM V1-PT THINKING ABO UT QUIT TOBACCO USE [facility] Feb 19, 2014 08:45 AM V1-PT DECLINES REF TO TOBACCO CESS [facility] Feb 19, 2014 08:45 AM V1-PT DECLINES TOB ACCO [facility]ESSATION [facility] Feb 19, 2014 08:45 AM V1-PT THINKING ABO UT QUIT TOBACCO USE [facility] Jun 04, 2013 08:39 AM CURRENT SMOKER smokes a pack of cigaretts a week. [facility] Jun 04, 2013 08:39 AM V1-PT DECLINES REF TO TOBACCO CESS [facility] Jun 04, 2013 08:39 AM V1-PT DECLINES TOB ACCO CESSATION [facility] Jun 04, 2013 08:39 AM V1-PT THINKING ABO UT QUIT TOBACCO USE [facility] Aug 28, 2012 09:51 AM V1-PT DECLINES REF TO TOBACCO CESS [facility] Aug 28, 2012 09:51 AM V1-PT DECLINES TOB ACCO CESSATION [facility] Aug 28, 2012 09:51 AM V1-PT READY TO CARIDAD T TOBACCO USE [facility] January 03, 2012 08:39 AM CURRENT [facility]MOKER [facility] January 03, 2012 08:39 AM V1-PT DECLINES REF TO TOBACCO CESS [facility] January 03, 2012 08:39 AM V1-PT DECLINES TOB ACCO CESSATION [facility] January 03, 2012 08:39 AM V1-PT THINKING ABO UT QUIT TOBACCO USE [facility] Jul 22, 2011 08:19 AM V1-PT DECLINES REF TO TOBACCO CESS [facility] Jul 22, 2011 08:19 AM V1-PT DECLINES TOB ACCO CESSATION [facility] Jul 22, 2011 08:19 AM V1-PT NOT INTEREST ED IN QUIT TOBACCO USE [facility] Jan 25, 2011 08:38 AM CURRENT SMOKER [facility] Jan 25, 2011 08:38 AM V1-PT DECLINES REF TO TOBACCO CESS [facility] Jan 25, 2011 08:38 AM V1-PT DECLINES TOB ACCO CESSATION [facility] Jan 25, 2011 08:38 AM V1-PT THINKING ABO UT QUIT TOBACCO USE [facility] Sep 03, 2009 12:43 PM CURRENT SMOKER advise stop [facility] Sep 03, 2009 12:43 PM V1-PT DECLINES REF TO TOBACCO CESS [facility] Sep 03, 2009 12:43 PM V1-PT DECLINES TOB ACCO CESSATION [facility] Sep 03, 2009 12:43 PM V1-PT NOT INTEREST ED IN QUIT TOBACCO USE [facility] Jun 28, 2008 11:28 AM V1-PT DECLINES REF TO TOBACCO CESS [facility] Jun 28, 2008 11:28 AM V1-PT DECLINES TOB ACCO CESSATION [facility] Jun 28, 2008 11:28 AM V1-PT NOT INTEREST ED IN QUIT TOBACCO USE [facility] Jun 28, 2008 09:31 AM CURRENT SMOKER 5-6 cigarettes/day [facility] Mar 18, 2005 09:38 AM CURRENT SMOKER [facility] December 28, 2001 08:58 AM CURRENT SMOKER Patient states he has smoked from age 16-present, 1/2 pk cigarettes daily. [facility] Encounter Notes: All associated encounter notes This section contains the clinical notes associated to the Encounter. Date/Time Encounter Note(s) Provider Source Sep 17, 2024 10:00 AM PRIMARY CARE NURSE PRACTITIONER OUTPATIENT NOTE: LOCAL TITLE: NURSE PRACTITIONER OUTPATIENT NOTE STANDARD TITLE: PRIMARY CARE NURSE PRACTITIONER OUTPATIENT NOTE DATE OF NOTE: SEP 17, 2024@10:00 ENTRY DATE: SEP 17, 2024@10:00:50 AUTHOR: JD GRAF EXP COSIGNER: URGENCY: STATUS: COMPLETED PRIMARY CARE VISIT KINJAL HOLA LAW, is a 74 y/o BLACK [place] MALE who presents today [facility] the [place] [facility]. TYPE OF VISIT: Face to face HPI: AFib - stable on Eliquis. Has a pacemaker. HTN - stable on Rx x 2. HLD - lipids are elevated; not currently on statin. Admits he doesn't watch his diet. Denies CP, palpitations, peripheral edema CKD stage 3 - GFR stable 52. prediabetes - A1c 6.2, not on Rx. Doesn't watch diet. Denies polydipsia, polyuria. + smoker - since age 8; down to 2 cig/day. Denies cough, SOB. hx right hemicolectomy, followed by GI. Has occasional rectal bleeding when constipation, GI told him it was a hemorrhoid. Last colo 2019, large adenoma polyp removed. Appt pending for next colo. Recent labs reviewed and all medications were reconciled during this visit. 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 Obese. Mental Status: Alert and oriented x4. Neck: Supple. No JVD. No lymphadenopathy. No bruit. Thyroid unremarkable. Lungs: CTAB. Normal chest excursion. Eupneic respirations. CV: Heart tones S1, S2. RRR. No M/G/R. Pacemaker palpated left upper chest. No peripheral edema. GI: Abdomen is soft and nontender. No palpable mass or organomegaly. Rectal exam deferred. : No CVA tenderness. Ext: No cyanosis or clubbing. No gross deformities. MS: Full ROM all joints Neuro: CN II through XII grossly intact. Psych: Normal mood and affect. Normal judgment. Cooperative with exam, follows commands. ALLERGIES: Patient has answered [facility] - see end of note PREVENTIVE MEDICINE GOALS Colonoscopy GAP Reminder DUE NOW Tobacco Use Screening Sep 14 Medication Reconciliation DUE NOW Td / Tdap Immunization Jun 19 Alcohol Use Screen (AUDIT-C) Sep 14 RHS Screen Sep 14 (Optional) Whole Health Documentation DUE NOW ASSESSMENT/PLAN: Active problems - Computerized Problem List is the source for the followin. Atrial Fib - Continues on Eliquis, has pacemaker. Followed by Cardiology. 2. Long-term current use of anticoagulant - at risk for bleeding complications, monitor closely 3. Hypertension (SNOMED CT 18044954) - stable, continue Rx. 4. Hyperlipidemia (SNOMED CT 84034680) - lipids elevated. Discussed diet modification. Start atorvastatin daily. Recheck labs 3-6 months. 5. Prediabetes - discussed diet modification. Recheck labs 3-6 months. 6. CKD stage 3 - stable, GFR 52. Monitor labs, risk vs benefit of nephrotoxic medications. 7. Cardiac pacemaker in situ - continues on Eliquis. 8. Nicotine dependence - not interested in cessation assistance; has cut back to 2 cig/day. 9. hx colon polyp - adenoma 2019. Followed by GI. Has upcoming appt for colo. FOLLOW UP: Return to clinic as noted below and/or sooner PRN UPCOMING APPOINTMENTS: 12/12/2024 09:30 [facility] 1 03/20/2025 13:00 [facility] OPTOMET[facility] 1 PM No barriers noted; patient understands and agrees to current treatment plan. If patient has any questions, concerns or changes in current health status he/she will call or come in to the [facility]. A total of 40 minutes were spent F2F with the patient during this encounter and over half that time was spent on counseling and coordination of care. We discussed in depth all current health conditions and management of these conditions. HM: Medication Reconciliation: Outpatient: Has the patient been taking medications as documented in the EMLR? YES: The patient has been taking medications as documented in the EMLR. Essential Medication List for Review used to complete this medication reconciliation. INCLUDED IN THIS LIST: Alphabetical list of active outpatient prescriptions dispensed from this [facility] (local) and dispensed from another [place] or [facility] facility (remote) as well as inpatient orders (local, pending and active), local clinic medications, locally documented non-VA medications, and local prescriptions that have or been discontinued in the past 90 days. - All changes in medications, including all non-VA/Herbal/OTC medications were entered into CPRS. - If there were any medications the patient should no longer take, they were discontinued. - The patient/caregiver was instructed to update this list, discard old lists, and take this list to the next appointment, whether with a VA or non-VA provider. Tobacco Use Follow-Up: Patient was advised to stop smoking and/or using other tobacco products. Advised patient that a combination of behavioral counseling and FDA-approved cessation medications is the most effective way to ensure their success in stopping to smoke and/or using other tobacco products. The patient was not interested in additional information about behavioral counseling and other support strategies discussed. Informed patient that medications can help with cravings and withdrawal symptoms, and they greatly increase the chances of successfully stopping your tobacco use. The patient was not interested in a prescription for tobacco cessation medications. /subhash/ ZIGGY AMBRIZ CERTIFIED NURSE PRACTITIONER Signed: 10/20/2024 12:48 JD GRAFFIELD
--- OUTSIDE RECORDS SUMMARY | 2024-10-29 10:04 | XMS_ITS | Encounter Summary ---
Author Name [facility] [place] Organization [facility] [place] Address [address] [place] [address] Care Team Providers Care Pbx Supervisor Name Role Phone PRIYANKA GUEVARA Primary [...] PART A May 15, 2015 PART A [id number] KINJAL LAW SR PATIENT MEDICARE (WNR) MEDICARE (M) PART A May 15, 2015 PART A [id number] [phone] KINJAL LAW SR PATIENT Selected Encounter This section includes the information on record at [place] for the Encounter. Date/Time Encounter Type Encounter Description Reason Pro vider Source Oct 22, 2024 10:20 AM Outpatient Encounter PRIMARY CARE/MEDICINE IHE Encounter Template Text not used by VA Plan of Treatment: Future Appointments (+ 6 months) and Future Tests (+/- 45 days) The Plan of Treatment section includes future care activities for the patient from all [place] [facility]. This section includes future appointments and future orders which are active, pending or scheduled. Future Appointments This section includes appointments that were scheduled to occur 6 months from the date of the Encounter, up to a maximum of 20 appointments. The data comes from all [facility] facilities. Appointment Date/Time Appointment Type Appointme nt Facility Name Oct 26, 2024 11:30 AM AMBULATORY - MEDICINE [facility] Oct 29, 2024 10:45 AM [facility] [place] [facility] Nov 01[facility] 2024 03:30 PM [facility] Nov 13, 2024 11:00 AM AM[place]ULATORY - MEDICINE [place] [facility] Dec 12, 2024 09:30 AM AMBULATORY - MEDICINE [facility] Mar 18, 2025 09:30 AM AMBULATORY - MEDICINE [facility] Mar 20, 2025 01:00 PM [facility]UL[facility]ORY [facility] Active, Pending, and Scheduled Orders This section includes a listing of several types of active, pending, and scheduled orders, including clinic medications orders, diagnostic test orders, procedure orders and consult orders; where the start date of the order is 45 days before the date of the Encounter or 45 days after the date of theEncounter. The data comes from all [facility]. Test Date/Time Test Type Test Details Facility Name Sep 13, 2024 10:01 AM Consult Order COMMUNITY CARE-UROLOGY [facility] [employer] [facility] Oct 16, 2024 12:00 AM Laboratory - Chemistry [facility] Oct 16, 2024 12:00 AM Laboratory - Microbiology Order URINE CULTURE(MWROX) URINE CLEAN CATCH [facility] Oct 20, 2024 01:20 PM Consult Order COMMUNITY CARE-GI GENERAL [facility] [employer] [facility] Social History: Smoking Status (Most current) [...] RY DAY CIGARETTES [place] [facility] [place] [facility] Tobacco Use History This section includes a history of the smoking, or tobacco-related health factors, that were collected on or before the date of the Encounter. The data comes from the [place] facility where the Encounter took place. 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 [facility] [place] [facility] Sep 14, 2023 10:00 AM VA-TOBACCO USE MED NO [facility] [place] [facility] Sep 14, 2023 10:00 AM VA-TOBACCO USER EVERY DAY [facility] [place] [facility] Aug 02, 2022 01:11 PM VA-TOBACCO USE 30 YEARS OR MORE [facility] [place] [facility] Aug 02, 2022 01:11 PM VA-TOBACCO USE ADVICE [facility] [place] [facility] Aug 02, 2022 01:11 PM VA-TOBACCO USE LOG ROPER NO [facility] [place] [facility] Aug 02, 2022 01:11 PM VA-TOBACCO USE MED NO [facility] [place] [facility] Aug 02, 2022 01:11 PM VA-TOBACCO USE WI 30 MIN OF WAKEUP [facility] [place] [facility] Aug 02, 2022 01:11 PM VA-TOBACCO USER EVERY DAY [facility] [place] [facility] Jul 28, 2021 11:21 AM VA-TOBACCO USE 30 YEARS OR MORE [facility] [place] [facility] Jul 28, 2021 11:21 AM VA-TOBACCO USE ADVICE [facility] [place] [facility] Jul 28, 2021 11:21 AM VA-TOBACCO USE LOG ROPER NO [facility] [place] [facility] Jul 28, 2021 11:21 AM VA-TOBACCO USE MED NO [facility] [place] [facility] Jul 28, 2021 11:21 AM VA-TOBACCO USE WI 30 MIN OF WAKEUP [facility] [place] [facility] Jul 28, 2021 11:21 AM VA-TOBACCO USER EVERY DAY [facility] [place] [facility] Jun 04, 2020 01:59 PM VA-TOBACCO USE 30 YEARS OR MORE [facility] [place] [facility] Jun 04, 2020 01:59 PM VA-TOBACCO USE ADVICE [facility] [place] [facility] Jun 04, 2020 01:59 PM VA-TOBACCO USE LOG ROPER NO [facility] [place] [facility] Jun 04, 2020 01:59 PM VA-TOBACCO USE MED NO [facility] [place] [facility] Jun 04, 2020 01:59 PM VA-TOBACCO USE WI 30 MIN OF WAKEUP [facility] [place] [facility] Jun 04, 2020 01:59 PM VA-TOBACCO USER EVERY DAY [facility] [place] [facility] Mar 30, 2016 10:35 AM CURRENT SMOKER smokes about 1 pack every 3 days for about 45 years [place] [facility] [facility] Encounter Notes: All associated encounter notes This section contains the clinical notes associated to the Encounter. Date/Time Encounter Note(s) Provider Source Oct 22, 2024 10:20 AM PRIMARY CARE NOTE: LOCAL TITLE: WALK-IN NOTE PRIMARY CARE (T) STANDARD TITLE: PRIMARY CARE NOTE DATE OF NOTE: OCT 22, 2024@10:20 ENTRY DATE: OCT 22, 2024@10:20:11 AUTHOR: LAVON DAVIS COSIGNER: URGENCY: STATUS: COMPLETED WALK-IN NOTE PRIMARY CARE (T) Has ADDENDA <====Click to Start Advanced Medical Support Big Laurel presents to the Primary Care clinic with the following request: [ ]Medication Renewal/Refill [ ]Consultation with Team RN [ ]Symptoms [ X ]Other The states they are: [ ]Waiting [ X ]Not Waiting No Walk in visit scheduled with PACT Nurse [ X ] At this encounter the [place]urel's demographics were verified. [ X ] At this encounter the 's Insurance information was verified. [ X ] At this encounter the below scheduled visits for the [place] were discussed and appointment reminder card was offered. Future appointments: 10/29/2024 10:45 COM CARE-GI GENERAL 11/13/2024 11:00 COM CARE-DENTAL GENERAL 12/12/2024 09:30 SPR PODIATRY 1 03/18/2025 09:30 SPR PACT 7 TELEVISION NEWS REPORTER 03/20/2025 13:00 NHM OPTOMETRY 1 PM [place] walked into clinic requesting call back to discuss health concerns,about having blood in urine. /subhash/ LAVON DAVIS [employer]VANCED FINANCIAL SERVICES REPRESENTATIVE Signed: 10/22/2024 10:20 Receipt Acknowledged By: 10/23/2024 11:45 /subhash/ SHANI KEENAN RN-BC REGISTERED NURSE 10/22/2024 11:10 /subhash/ BANDAR MORALES LPN Licensed Practical Nurse 10/23/2024 ADDENDUM STATUS: COMPLETED Called [place] and he reports that he had issues prior with blood in his urine and is intermittent. [place] reports that he did not stay for sick call yesterday due to he did not think that they would do anything except refer him to someplace else. Author advised Big Laurel that his hematuria may be related to his prostate issues and inquired if he had contacted his urologist to discuss, [place]urel advised he had not called his urologist but would like to see his PCP. author encouraged Big Laurel to contact urology and advised that will also request PACT AMSA contact [place] to assist with scheduling provider visit later this week pending availability. Author encouraged to seek emergency care if hematuria increases in intensity of blood or frequency of occurance. /subhash/ SHANI KEENAN RN-BC REGISTERED NURSE Signed: 10/23/2024 12:09 LAVON DAVIS
--- OUTSIDE RECORDS SUMMARY | 2024-10-29 10:04 | XMS_ITS ---
Author Name [facility] [place] [facility] [place] Address [address] [place] [address] Care Team Providers Care Credit Card Control Clerk Name Role Phone PRIYANKA GUEVARA Primary Care [...] PART A May 15, 2015 PART A [id number] KINJAL LAW SR PATIENT MEDICARE (WNR) MEDICARE (M) PART A May 15, 2015 PART A [id number] KINJAL LAW SR PATIENT Selected Encounter This section includes the information on record at [place] for the Encounter. Date/Time Encounter Type Encounter Description Reason Pro vider Source Oct 23, 2024 11:53 AM Outpatient Encounter PRIMARY CARE/MEDICINE IHE Encounter Template Text not used by VA Plan of Treatment: Future Appointments (+ 6 months) and Future Tests (+/- 45 days) The Plan of Treatment section includes future care activities for the patient from all [place] [facility]. This section includes future appointments and future orders which are active, pending or scheduled. Future Appointments This section includes appointments that were scheduled to occur 6 months from the date of the Encounter, up to a maximum of 20 appointments. The data comes from all [facility]. Appointment Date/Time Appointment Type Appointme nt Facility Name Oct 26, 2024 11:30 [facility] Oct 29, 2024 10:45 AM AMBULATORY MEDICINE [place] [facility] Nov 01, 2024 03:30 PM AMBULATORY - MEDICINE [facility] Nov 13, 2024 11:00 AM AMBULATORY MEDICINE [place] [facility] Dec 12, 2024 09:30 AM AMBULATORY - MEDICINE [facility] Mar 18, 2025 09:30 AM AMBULATORY - MEDICINE [facility] Mar 20, 2025 01:00 PM AMBULATORY MEDICINE [facility] [place] [facility] Active, Pending, and Scheduled Orders This section includes a listing of several types of active, pending, and scheduled orders, including clinic medications orders, diagnostic test orders, procedure orders and consult orders; where the start date of the order is 45 days before the date of the Encounter or 45 days after the date of theEncounter. The data comes from all [facility]. Test Date/Time Test Type Test Details Facility Name Sep 13, 2024 10:01 AM Consult Order COMMUNITY CARE-UROLOGY [facility] Oct 16, 2024 12:00 AM Laboratory - Microbiology Order URINE CULT[facility](MWROX) [facility] Oct 16, 2024 12:00 AM Laboratory - Chemistry Order URINALYSIS URINE [facility] Oct 20, 2024 01:20 PM Consult Order COMMUNITY CARE-GI GENERAL [facility] [employer] Social History: Smoking Status (Most current) [...] ity Sep 17, 2024 10:04 AM VA-TOBACCO NEVER U SED OTHER TYPE [place] [facility] Tobacco Use History This section includes a history of the smoking, or tobacco-related health factors, that were collected on or before the date of the Encounter. The data comes from the [place] facility where the Encounter took place. 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 [place] [facility] Sep 14, 2023 10:00 AM VA-TOBACCO USE MED NO [facility] [place] [facility] Sep 14, 2023 10:00 AM VA-TOBACCO USER EVERY DAY [facility] [place] [facility] Aug 02, 2022 01:11 PM VA-TOBACCO USE 30 YEARS OR MORE [facility] [place] [facility] Aug 02, 2022 01:11 PM VA-TOBACCO USE ADVICE [facility] [place] [facility] Aug 02, 2022 01:11 PM VA-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 [facility] [place] [facility] Aug 02, 2022 01:11 PM VA-TOBACCO USE MED NO [facility] [place] [facility] Aug 02, 2022 01:11 PM VA-TOBACCO USE WI 30 MIN OF WAKEUP [facility] [place] [facility] Aug 02, 2022 01:11 PM VA-TOBACCO USER EVERY DAY [facility] [place] [facility] Jul 28, 2021 11:21 AM VA-TOBACCO USE 30 YEARS OR MORE [facility] [place] [facility] Jul 28, 2021 11:21 AM VA-TOBACCO USE ADVICE [place] [facility] [place] [facility] Jul 28, 2021 11:21 AM VA-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 [facility] [place] [facility] Jul 28, 2021 11:21 AM VA-TOBACCO USE MED NO [facility] [place] [facility] Jul 28, 2021 11:21 AM VA-TOBACCO USE WI 30 MIN OF WAKEUP [facility] [place] [facility] Jul 28, 2021 11:21 AM VA-TOBACCO USER EVERY DAY [facility] [place] [facility] Jun 04, 2020 01:59 PM VA-TOBACCO USE 30 YEARS OR MORE [facility] [place] [facility] Jun 04, 2020 01:59 PM VA-TOBACCO USE ADVICE [facility] [place] [facility] Jun 04, 2020 01:59 PM VA-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 [facility] [place] [facility] Jun 04, 2020 01:59 PM VA-TOBACCO USE MED NO [facility] [place] [facility] Jun 04, 2020 01:59 PM VA-TOBACCO USE WI 30 MIN OF WAKEUP [facility] [place] [facility] Jun 04, 2020 01:59 PM VA-TOBACCO USER EVERY DAY [facility] [place] [facility] Mar 30, 2016 10:35 AM CURRENT SMOKER smokes about 1 pack every 3 days for about 45 years [place] [facility] Encounter Notes: All associated encounter notes This section contains the clinical notes associated to the Encounter. Date/Time Encounter Note(s) Provider Source Oct 23, 2024 11:54 AM ADMINISTRATIVE NOT E: LOCAL TITLE: ADMINISTRATIVE NOTE STANDARD TITLE: ADMINISTRATIVE NOTE DATE OF NOTE: OCT 23, 2024@11:54 ENTRY DATE: OCT 23, 2024@11:54:26 AUTHOR: SAILAJA WOODY COSIGNER: URGENCY: STATUS: COMPLETED ADMINISTRATIVE NOTE Has ADDENDA THIS PATTERN MARKING SUPERVISOR CALLED TO SCHEDULE F2F APPT FOR HEMATURIA WITH [facility] PACT EIGHT MD PROVIDER. NO ANSWER, LEFT MESSAGE FOR . /subhash/ LUI WOODY ADVANCED TRACK MAINTAINER Signed: 10/23/2024 11:55 10/23/2024 ADDENDUM STATUS: COMPLETED THE PATTERN MARKING SUPERVISOR HAD SPOKEN TO TO SCHEDULE F2F APPT WITH [facility] PACT EIGHT MD PROVIDER ON 10/26/2024 AT 11:30AM FOR BLOOD IN URINE. /subhash/ LUI WOODY ADVANCED TRACK MAINTAINER Signed: 10/23/2024 13:58 LUI WOODY
--- OUTSIDE RECORDS SUMMARY | 2024-10-29 10:04 | XMS_ITS ---
Author Name [facility] [place] Organization [facility] [place] Address [address] [place] [address] Care Team Providers Care Software Implementation Project Manager Name Role Phone PRIYANKA GUEVARA Primary [...] PART A May 15, 2015 PART A [id number] KINJAL LAW SR PATIENT MEDICARE (WNR) MEDICARE (M) PART A May 15, 2015 PART A [id number] [phone] KINJAL LAW SR PATIENT Selected Encounter This section includes the information on record at [place] for the Encounter. Date/Time Encounter Type Encounter Description Reason Pro vider Source Oct 15, 2024 07:29 AM Outpatient Encounter ADMIN PAT ACTIVTIES (MASNONCT) IHE Encounter Template Text not used by [place] Plan of Treatment: Future Appointments (+ 6 months) and Future Tests (+/- 45 days) The Plan of Treatment section includes future care activities for the patient from all [facility]. This section includes future appointments and future orders which are active, pending or scheduled. Future Appointments This section includes appointments that were scheduled to occur 6 months from the date of the Encounter, up to a maximum of 20 appointments. The data comes from all [facility]. Appointment Date/Time Appointment Type Appointme nt Facility Name Oct 26, 2024 11:30 AM AMBULATORY - MEDICINE [facility] Oct 29, 2024 10:45 AM AMBULATORY - MEDICINE [facility] Nov 01, 2024 03:30 PM AMBULATORY - MEDICINE [facility] Nov 13, 2024 11:00 AM AMBULATORY [facility]ICINE [facility] Dec 12, 2024 09:30 AM AMBULATORY - MEDICINE [facility] Mar 18, 2025 09:30 AM AMBULATORY - MEDICINE [facility] Mar 20, 2025 01:00 PM AMBULATORY MEDICINE [facility] Active, Pending, and Scheduled Orders This section includes a listing of several types of active, pending, and scheduled orders, including clinic medications orders, diagnostic test orders, procedure orders and consult orders; where the start date of the order is 45 days before the date of the Encounter or 45 days after the date of theEncounter. The data comes from all [facility]. Test Date/Time Test Type Test Details Facility Name Sep 13, 2024 10:01 AM Consult Order COMMUNITY CARE-UROLOGY [facility] [employer] [facility] Oct 16, 2024 12:00 AM Laboratory - Microbiology Order URINE CULTURE(MWROX) URINE CLEAN CATCH [facility] Oct 16, 2024 12:00 AM Laboratory - Chemistry Order URINALYSIS URINE [facility] Oct 20, 2024 01:20 PM Consult Order COMMUNITY CARE-GI GENERAL [facility] [employer] [facility] Social History: Smoking Status (Most current) [...] Current Smoking Status Comment Davey vinson Sep 17, 2024 10:04 AM VA-TOBACCO NEVER U SED OTHER TYPE [place] [facility] [place] [facility] Tobacco Use History This section includes a history of the smoking, or tobacco-related health factors, that were collected on or before the date of the Encounter. The data comes from the [place] facility where the Encounter took place. Date/Time Smoking Status/Tobac co Use Comment [facility] Sep 17, 2024 10:04 AM VA-TOBACCO USE EVERY DAY CIGARETTES [facility] [place] [facility] Sep 14, 2023 10:00 AM VA-TOBACCO DOESNT USE WI 30 MIN WAKEUP [place] [facility] [place] [facility] Sep 14, 2023 10:00 AM VA-TOBACCO USE 30 YEARS OR MORE [facility] [place] [facility] Sep 14, 2023 10:00 AM VA-TOBACCO USE ADVICE [place] [facility] [place] [facility] Sep 14, 2023 10:00 AM VA-TOBACCO USE MEDICAL PHYSICIST NO [place] [facility] [place] [facility] Sep 14, 2023 10:00 AM VA-TOBACCO USE MED NO [facility] [place] [facility] Sep 14, 2023 10:00 AM VA-TOBACCO USER EVERY DAY [facility] [place] [facility] Aug 02, 2022 01:11 PM VA-TOBACCO USE 30 YEARS OR MORE [facility] [place] [facility] Aug 02, 2022 01:11 PM VA-TOBACCO USE ADVICE [place] [facility] [place] [facility] Aug 02, 2022 01:11 PM VA-TOBACCO USE MEDICAL PHYSICIST NO [facility] [place] [facility] Aug 02, 2022 01:11 PM VA-TOBACCO USE MED NO [facility] [place] [facility] Aug 02, 2022 01:11 PM VA-TOBACCO USE WI 30 MIN OF WAKEUP [facility] [place] [facility] Aug 02, 2022 01:11 PM VA-TOBACCO USER EVERY DAY [facility] [place] [facility] Jul 28, 2021 11:21 AM VA-TOBACCO USE 30 YEARS OR MORE [facility] [place] [facility] Jul 28, 2021 11:21 AM VA-TOBACCO USE ADVICE [facility] [place] [facility] Jul 28, 2021 11:21 AM VA-TOBACCO USE MEDICAL PHYSICIST NO [facility] [place] [facility] Jul 28, 2021 11:21 AM VA-TOBACCO USE MED NO [facility] [place] [facility] Jul 28, 2021 11:21 AM VA-TOBACCO USE WI 30 MIN OF WAKEUP [facility] [place] [facility] Jul 28, 2021 11:21 AM VA-TOBACCO USER EVERY DAY [facility] [place] [facility] Jun 04, 2020 01:59 PM VA-TOBACCO USE 30 YEARS OR MORE [facility] [place] [facility] Jun 04, 2020 01:59 PM VA-TOBACCO USE ADVICE [facility] [place] [facility] Jun 04, 2020 01:59 PM VA-TOBACCO USE MEDICAL PHYSICIST NO [facility] [place] [facility] Jun 04, 2020 01:59 PM VA-TOBACCO USE MED NO [facility] [place] [facility] Jun 04, 2020 01:59 PM VA-TOBACCO USE WI 30 MIN OF WAKEUP [facility] [place] [facility] Jun 04, 2020 01:59 PM VA-TOBACCO USER EVERY DAY [facility] [place] [facility] Mar 30, 2016 10:35 AM CURRENT SMOKER smokes about 1 pack every 3 days for about 45 years [place] [facility] [place] [facility] Encounter Notes: All associated encounter notes This section contains the clinical notes associated to the Encounter. Date/Time Encounter Note(s) Provider Source Oct 15, 2024 07:29 AM ADMINISTRATIVE NOTE: LOCAL TITLE: CCC: SCHEDULING ADMINISTRATION STANDARD TITLE: ADMINISTRATIVE NOTE DATE OF NOTE: OCT 15, 2024@07:29:34 ENTRY DATE: OCT 15, 2024@07:29:34 AUTHOR: SHAN CALABRESE COSIGNER: URGENCY: STATUS: COMPLETED CCC: SCHEDULING ADMINISTRATION Has ADDENDA Patient Demographics Patient Name: KINJAL LAW Patient Primary Phone: [phone] Patient Primary [address]: [address] [place] [id number] Patient : 1950 Patient Age: 74 Caller/Recipient Relation to Patient: Self Caller Name: KINJAL LAW Scheduling Requested Service(s): Primary Care Patient Expects Callback: Yes Scheduling Note Reason: Patient is Requesting Follow Up Appointment Administrative Administrative Note Reason: Medication Renewal [place] Medications Refill/Renewal Request: LAXATIVES. Administrative Note Comments: STATED HIS RX IMPORTANT: This note was created by [facility] staff. Please do not alert the staff member by adding them as a signer for future communications. Alerts are not monitored by this user. /roxanna CALABRESE v2 [facility] Signed: 10/15/2024 07:29 Receipt Acknowledged By: 10/15/2024 10:53 /subhash/ SHANI KEENAN RN-BC REGISTERED NURSE 10/15/2024 ADDENDUM STATUS: COMPLETED Called and he reports that he is in need of renewal of his glycol suppositories. Author advised will send request to provider for review. /SHANI Wright RN-BC REGISTERED NURSE Signed: 10/15/2024 10:54 SHAN CALABRESE [place] [facility]
== END 2024-10-29 10:15 | disposition home or self-care (01) ==
LOC: HO.HGI 09:19
PROVIDERS: PCP Internal Medicine; Visit Provider Nurse Practitioner Family
DX: Z90.49 Acquired absence of other specified parts of digestive tract (principal); D36.9 Benign neoplasm, unspecified site; K52.9 Noninfective gastroenteritis and colitis, unspecified; K21.9 Gastro-esophageal reflux disease without esophagitis
CPT/HCPCS: 99213

== ENCOUNTER → 2024-10-29 09:19 | Outpatient (BNVA) | payer OTHER, SELFPAY | PROVIDERS: PCP Internal Medicine; Visit Provider Nurse Practitioner Family | DX: K52.9 Noninfective gastroenteritis and colitis, unspecified (principal); K21.9 Gastro-esophageal reflux disease without esophagitis; D12.6 Benign neoplasm of colon, unspecified; Z90.49 Acquired absence of other specified parts of digestive tract | CPT/HCPCS: 99212 ==

== ENCOUNTER 2024-12-08 11:27 | Inpatient (IN) | payer OTHER, SELFPAY ==
[2024-12-08 11:46] VITALS: BP 137/63; PULSE 74; RESP 18; TEMP 36.6; O2SAT 98; BMI 32.0
--- NOTE | 2024-12-08 11:46 | ED.GENADULT ---
HPI - General Adult General Chief complaint: Urogenital-Male Stated complaint: urianting blood Time Seen by Provider: 12/08/24 12:02 Source: patient Mode of arrival: ambulatory Limitations: no limitations History of Present Illness ED Provider: susan tejeda np HPI narrative: Patient is a 74-year-old male who presents emergency department for evaluation of hematuria with clots described as bright red blood with many clots. States he has been compliant with his Eliquis. He is followed by Dr. Arora for this. Painless hematuria over the past 2 months but feels as though it has increased in severity. He reports recently his primary care doctor reached out to Dr. Arora who prescribed a 1 week prescription for a medication which did stop the bleeding but was advised he could not take it any longer as it would conflict with his Eliquis usage, he does not recall the name of this. He denies any fevers, chills, nausea, vomiting, abdominal pain, back pain, dysuria. He does feel as though it is difficult for him to completely empty his bladder, voiding very small amounts at a time. Related Data Home Medications ?Medication ?Instructions ?Recorded ?Confirmed amlodipine 5 mg tablet 5 mg PO DAILY 05/17/20 05/07/24 apixaban 5 mg tablet 5 mg PO BID 05/17/20 05/07/24 pravastatin 40 mg tablet 40 mg PO DAILY 05/17/20 05/07/24 allopurinol 100 mg tablet 100 mg PO DAILY 09/28/22 05/07/24 Previous Rx's ?Medication ?Instructions ?Recorded metoprolol succinate 50 mg 50 mg PO DAILY #90 tabs 06/17/23 tablet,extended release 24 hr mirabegron 25 mg tablet,extended 25 mg PO DAILY 90 days #90 tabs 08/25/23 release 24 hr bisacodyl 5 mg tablet,delayed 10 mg (2 x 5 mg) PO BEDTIME #180 10/29/24 release (Dulcolax (bisacodyl)) tabs omeprazole 40 mg capsule,delayed 40 mg PO DAILY #90 caps 10/29/24 release psyllium husk (with sugar) 3.4 1 tbsp PO DAILY #822 grams 10/29/24 gram/7 gram oral powder (Metamucil (with sugar)) tranexamic acid 650 mg tablet 650 mg PO BID 7 days #14 tabs 10/29/24 Allergies Allergy/AdvReac Type Severity Reaction Status Date / Time No Known Allergies Allergy Verified 12/08/24 11:48 [No Known Allergies*] Review of Systems Review of Systems: Yes all other systems are reviewed and are negative [facility] Past Medical History Attestation statement: The following information was validated with the patient. Source: old records reviewed Medical History Bleeding hemorrhoids Cardiac pacemaker in situ Tubular adenoma of colon Prostate cancer Hypertension Surgical History History of right hemicolectomy History of prostate biopsy Pacemaker H/O colonoscopy H/O hernia repair Hx of tonsillectomy Family History Family History Father Family history of Alzheimer's disease Mother Breast cancer Social History Social History Unable to assess alcohol history related to: Unknown Alcohol intake: current Alcohol intake frequency: a few times a month Patient Tobacco Use Status: Tobacco use Unknown Cigarettes Per Day: 1 Use of substances other than those prescribed or required for medical reasons: Unknown Advance Directives: No Advance Directives Information Provided: No Nutrition Risks: No Nutritional Risk Physical Exam ED Vital Signs: Vital Signs - 24 hr 12/08/24 11:46 Temperature 97.8 F Pulse Rate 74 Respiratory Rate 18 Blood Pressure 137/63 Pulse Oximetry 98 Oxygen Delivery Method Room Air BMI result Body Mass Index 32.0 Appearance: Alert.?Oriented to person, place and time. No acute distress.?Normal affect. Eyes: Pupils equal, round and reactive to light.? ENT: Pharynx normal.?? Neck: Normal inspection.? Neck supple.?? CVS: Heart sounds normal. Normal heart rate and rhythm.? Pulses normal.?? Respiratory: No respiratory distress.? Lung sounds clear to auscultation bilaterally?? Abdomen: Soft with tenderness upon palpation over the suprapubic region. Normoactive bowel sounds. No pulsatile mass.?? Skin: Skin warm and dry.? Normal skin color.? Extremities: No lower extremity edema Neuro: Moves all extremities spontaneously. Sensation intact bilaterally. CN II-XII intact. No focal neuro deficits. Ambulates with normal steady gait. Course Course Course Narrative: RME, this is a rapid medical exam performed by Marcell Moreno please refer to primary provider for complete H&P- 74 year old male presents for evaluation of hematuria. He has a history of prostate cancer and is also on Elquis. He is followed by Dr Arora. He has been having painless hematuria for about 2 months but is now experiencing clots and difficulty urinating. Plan for bladder scan, labs, urinalysis Medications Administered Generic Name Dose Route Start Last Admin Trade Name Freq PRN Reason Stop Dose Admin Sodium Chloride 3 ml 12/08/24 16:00 12/08/24 17:09 0.9 % Sodium Chloride Flush 3 Ml Syringe IVFLUSH Not Given QSHIFT MADISYN Discontinued Medications Generic Name Dose Route Start Last Admin Trade Name Freq PRN Reason Stop Dose Admin Ceftriaxone Sodium 1 gm 12/08/24 13:08 12/08/24 13:44 Ceftriaxone Sodium 1 Gm Vial IVPUSH 12/08/24 13:09 1 gm ONCE ONE Administration Lidocaine HCl 10 ml 12/08/24 14:27 12/08/24 14:41 Lidocaine Hcl 2 % Urojet 10 Ml Jel.Pf.Sarah TOPICAL 12/08/24 14:28 10 ml ONCE ONE Administration Medical Decision Making Medical Decision Making [facility] Narrative: Patient is a 74-year-old male past medical history of hypertension, hyperlipidemia, on Eliquis for unclear reason, SVT, pacemaker, history of prostate cancer with radiation cystitis who presents emergency department for evaluation of hematuria with clots, difficulty voiding as per HPI. Overall he appears well, nontoxic, afebrile. His abdominal examination is benign aside from mild tenderness upon palpation over the suprapubic region. No CVA tenderness. He is followed by Dr. Arora from Urology, has failed oxybutynin previously, most recently seen in September of 2024. It is unclear to me at this time what medication he may have recently taken to subside the bleeding, I do not see anything evident in the pharmacy records available through [employer]. I will consult with Dr. Arora, he may require continuous bladder irrigation with 3 way [place] catheter, Will obtain CBC to evaluate for leukocytosis/ anemia, CMP and lipase to evaluate for abnormal electrolytes /abnormal renal function/ abnormal hepatic/biliary function, and Urinalysis. Differential Diagnosis Differential Diagnoses: The differential diagnosis associated with the presentation includes (Hematuria, radiation cystitis, urinary tract infection, anemia) Admission/Observation Consideration of admission/observation: Escalation of care including admission/observation considered Consult Healthcare Provider Management of the patient was discussed with: [employer]ice (Urology Dr. Arora as per narrative above) Lab Data MDM Lab Attestation statement: I reviewed the patient's lab results. CBC reveals a mild leukopenia 4400, normocytic anemia with a H&H of 8.8 and 26.9, most recent comparison is from the year of 2022 with H&H of 12.9 and 39. No thrombocytopenia. Urinalysis is consistent with UTI nitrite positive with leukocyte esterase and hematuria. 12/08/24 12:45 12/08/24 12:45 Labs: Lab Results 12/08/24 Range/Units 12:45 WBC 4.4 L (4.8-10.8) X10*3/uL RBC 2.88 L D (4.60-5.80) X10*6/uL Hgb 8.8 L D (14.0-18.0) g/dl Hct 26.9 L D (42.0-52.0) % MCV 93.4 (80.0-98.0) fL MCH 30.6 (27.0-33.0) pg MCHC 32.7 (31.0-36.0) g/dl RDW 15.1 (11.0-16.0) % Plt Count 185 D (160-400) X10*3/uL MPV 11.0 (9.4-12.4) fL Immature Gran % (Auto) 0.2 (0.0-0.4) % Neut % (Auto) 72.8 (45-73) % Lymph % (Auto) 13.5 L (20-40) % Shelby % (Auto) 12.6 H (2-11) % Eos % (Auto) 0.7 (0-4) % Baso % (Auto) 0.2 (0-2) % Lymph # (Auto) 0.6 L (1.2-4.9) X10*3/uL Shelby # (Auto) 0.6 (0.1-1.2) X10*3/uL Eos # (Auto) 0.0 (0.0-0.4) X10*3/uL Baso # (Auto) 0.0 (0.0-0.2) X10*3/uL Abs Immat Gran (auto) 0.01 (0.00-0.03) X10*3/uL Absolute Neuts (auto) 3.2 (2.0-8.3) x10*3/uL Absolute Nucleated RBC 0.000 (0.0-0.012) X10*3/uL Nucleated RBC % (auto) 0.0 (0.0-0.2) /100WBC Sodium 139 (135-145) mmol/L Potassium 5.3 H (3.3-5.1) mmol/L Chloride 110 H (96-108) mmol/L Carbon Dioxide 22 (22-29) mmol/L Anion Gap 12 (12-20) BUN 27 H (9-16) mg/dL Creatinine 1.66 H (0.5-1.4) mg/dL Estim Creat Clear Calc 46.5 Estimated GFR 41 Random Glucose 84 (60-115) mg/dL Calcium 8.9 (8.4-10.2) mg/dL Total Bilirubin 0.4 (0.0-1.0) mg/dL AST 23 (5-37) U/L ALT 16 (0-40) U/L Alkaline Phosphatase 62 (39-117) U/L Total Protein 6.2 L (6.5-8.0) g/dL Albumin 3.6 (3.5-5.0) g/dL Lipase 21 (8-78) U/L Urine Color Brown A Urine Appearance Turbid Urine pH 6.5 (5.0-9.0) Ur Specific Elbe 1.020 (1.005-1.025) Urine Protein 300 (3+) H (Neg-Trace) mg/dL Urine Glucose (UA) 100 H (Negative) mg/dL Urine Ketones 15 (Negative) mg/dL Urine Blood Large (3+) H (Negative) Urine Nitrite Positive H (Negative) Ur Leukocyte Esterase Moderate (2+) H (Negative) Urine RBC >20 H (0-2) /HPF Urine WBC 6-10 (0-5) /HPF Ur Squamous Epith Cells 11-20 (0-2) /HPF Urine Bacteria Trace (None Seen) Hyaline Casts 0-2 (0-2) /LPF External Record Review External record reviewed: Outpatient record Chronic Conditions Patient?s care impacted by: Other (See narrative above) Discharge Plan Discharge Clinical Impression: Hematuria Patient Disposition: Admitted As Inpatient Interventions: Admission Worksheet (ED) Last Done: 12/08/24 16:46
--- OUTSIDE RECORDS SUMMARY | 2024-12-08 12:03 | XMS_ITS ---
Author Name [facility] [facility] [place] [facility] [place] [facility] [place] Address [address] [place] [address] Care Team Providers Care Set Decorator Name Role Phone KEVINJAROD VARGASDEJONMASSIEL Primary Care Provider Unavail able Insurance Providers: [...] PART A May 15, 2015 PART A [id number] KINJAL BUCKLEY SR PATIENT MEDICARE (WNR) MEDICARE (M) PART A May 15, 2015 PART A [id number] KINJAL BUCKLEY SR PATIENT Selected Encounter This section includes the information on record at [place] for the Encounter. Date/Time Encounter Type Encounter Description Reason Provider Source Nov 26, 2024 12:25 PM NQHP OL DIG ASSMT&MGMT 5-10 PULMONARY/CHEST ICD-10-CM Z12.2 Encntr screen for malignant neoplasm of respiratory organs CHRISSY GATES KENDRA L IHE Encounter Template Text not used by [place] Assessments - Encounter Diagnoses This section includes the primary and secondary diagnoses documented for the Encounter. Date/Time Primary/Secondary Diagnosis Diagnosis Name Provider Source Nov 26, 2024 12:43 PM PRIMARY Encntr screen for malignant neoplasm of respiratory organs CHRISSY GATES KENDRA L [facility] [place] [facility] Plan of Treatment: Future Appointments (+ 6 months) and Future Tests (+/- 45 days) The Plan of Treatment section includes future care activities for the patient [facility] [place] [facility] This section includes future appointments and future orders which are active, pending or scheduled. Future Appointments This section includes appointments that were scheduled to occur 6 months from the date of the Encounter, up to a maximum of 20 appointments. The data comes from all [place] treatment facilities. Appointment Date/Time Appointment Type Appointme nt Facility Name Dec 12, 2024 09:30 AM AMBULATORY - MEDICINE [facility] January 09, 2025 10:00 AM AMBULATORY MEDICINE [facility] Mar 18, 2025 09:30 AM AMBULATORY - MEDICINE [facility] Mar 20, 2025 01:00 PM [facility] Active, Pending, and Scheduled Orders This section includes a listing of several types of active, pending, and scheduled orders, including clinic medications orders, diagnostic test orders, procedure orders and consult orders; where the start date of the order is 45 days before the date of the Encounter or 45 days after the date of theEncounter. The data comes from all [place] treatment [facility]. Test Date/Time Test Type Test Details Facility Name Oct 20, 2024 01:20 PM Consult Order [facility]GI GENERAL Cons Collating Machine Operator's Choice [facility] Nov 13, 2024 01:37 PM Consult Order [facility]DENTAL GENERAL Cons Collating [facility] Lab Results: +/- 30 days of the encounter This section includes the Chemistry and Hematology Lab Results on record with [place] for the patient. Radiology Reports and Pathology Reports are provided separately, in subsequent sections. Lab Results This section contains the Chemistry/Hematology Results that were resulted 30 days before or 30 daysafter the date of the Encounter. Date/Time Source Result Type Result - Unit Interpretation Reference Range Specimen Type Comment Nov 09, 2024 10:46 AM [facility] PSA SERUM Specimen Type: SERUM No comment entered. Ordering Provider: VIKTOR GUEVARA Report Released Date/Time: Nov 04, 2024 12:00 PM Reporting Lab: [facility] [address] [facility] [address] Performing Lab: [facility] [address] PSA 0.32 ng/mL 0.00-4.00 Nov 09, 2024 10:46 AM [facility] VITAMIN D (25-OH) SERUM Specimen Type : SERUM No comment entered. Ordering Provider: PRIYANKA GUEVARA Report Released Date/Time: Nov 04, 2024 12:00 PM [facility] [address] [address] [facility]forming Lab[facility] [address] [address] VITAMIN D (25-OH) 16 ng/mL L 20-50 Nov 09, 2024 10:46 AM [facility] LIPID PANEL FASTING SERUM Specimen Ty pe: SERUM No comment entered. Ordering Provider: PRIYANKA GUEVARA Report Released Date/Time: Nov 04, 2024 12:00 PM Reporting [facility] [address] [address] [facility] [address] [address] CHOLESTEROL 205 mg/dL H TRIGLYCERIDE 175 mg/dL H 0-150 LDL calculated 141 mg/dL H 0-129 CHOL/HDL 7.1 HDL CHOLESTEROL 29 mg/dL L 40-60 Nov 09, 2024 10:46 AM [facility] BASIC METABOLIC PANEL (non-fasting) SERUM Specimen Type: SERUM No comment entered. Ordering Provider: PRIYANKA GUEVARA Report Released Date/Time: Nov 04, 2024 12:00 PM Reporting Lab: [facility] [address] [address] [facility]forming Lab[facility] [address] [address] UREA NITROGEN 20 mg/dL 7-25 GLUCOSE 87 mg/dL 65-100 SODIUM 138 mmol/L 135-145 POTASSIUM 4.6 mmol/L 3.5-5.0 CHLORIDE 109 mmol/L 100-110 CO2 20 meq/L 20-30 CALCIUM 8.9 mg/dL 8.5-10.2 CREATININE, Serum 1.28 mg/dL 0.50-1.40 eGFR(CKD-EPI 2020) 58 mL/min L >60 Nov 09, 2024 10:46 AM [facility] CBC AND DIFF (AUTO) BLOOD Specimen Ty pe: BLOOD No comment entered. Ordering Provider: PRIYANKA GUEVARA Report Released Date/Time: Nov 04, 2024 12:00 PM Reporting Lab: [facility] [address] [facility] [address] [facility]forming Lab[facility] [address] [facility] [address] WBC 3.10 10*3/uL L 4.50-11.00 RBC 4.05 10*6/uL L 4.23-5.66 HGB 12.9 g/dL 12.8-17 HCT 37.6 L 39.2-50.4 MCV 92.8 fL 82-99 MCHC 34.3 g/dL 30.8-35.1 PLT 184 10*3/uL 140-360 MPV 11.2 fL 9.2-12.4 RDW-CV 14.7 12.0-16.0 MONO, ABS 0.42 10*3/uL 0.30-1.10 MCH 31.9 pg 26.2-32.6 NEUT % 50.4 43.7-75.8 LYMPH % 29.4 14.0-42.3 MONO % 13.5 5.1-13.7 EOS % 5.8 0.4-6.8 BASO % 0.6 0.1-2.0 NEUT, ABS 1.56 10*3/uL L 2.20-7.60 LYMPH, ABS 0.91 10*3/uL L 1.00-3.20 EOS, ABS 0.18 10*3/uL 0.03-0.44 BASO, ABS 0.02 10*3/uL 0.01-0.13 IMMATURE GRAN % 0.3 0.0-0.7 IMMATURE GRAN, ABS 0.01 10*3/uL 0.00-0.0 6 NRBC % 0.0 0.0-0.0 NRBC, ABS 0.00 10*3/uL 0.00-0.00 Oct 30, 2024 10:35 AM [facility] MICROSCOPIC AUTOMATED, URINE URINE Specimen T ype: URINE Comment: If Glucose = >500 and Ketones are positive, please alert the Physician. Ordering Provider: NUBIA EVANS CHAR PULLER Report Released Date/Time: Oct 15, 2024 11:36 AM Reporting Lab: [address] [address] Performing Lab: [address] [address] UA WBC 0-5 /[HPF] 0-5 UA BACTERIA 1+ /[HPF] NoneObs UA RBC TNTC /[HPF] 0-3 Oct 30, 2024 10:35 AM [facility] URINALYSIS URINE Specimen Type: URIN E Comment: If Glucose = >500 and Ketones are positive, please alert the Physician. Ordering Provider: NUBIA EVANS CHAR PULLER Report Released Date/Time: Oct 15, 2024 11:36 AM Reporting Lab: [address] [address] Performing Lab: [address] [address] UA COLOR Dark-Brown Yellow UA APPEARANCE Ex.Turbid Clear UA GLUCOSE Normal mg/dL Negative UA KETONES NEGATIVE mg/dL Negative UA BLOOD LARGE mg/dL Negative UA PROTEIN 100 mg/dL Negative UA NITRITE NEGATIVE mg/dL Negative UA BILIRUBIN NEGATIVE mg/dL Negative UA SPECIFIC GRAVITY 1.023 H 1.016-1.022 UA pH 5.5 5.0-9.0 UA UROBILINOGEN Normal mg/dL <2.0 UA LEUKOCYTE TRACE Negative Social History: Smoking Status (Most current) and Tobacco Use (All prior to encounter date) This section includes the most current, and the historical, smoking and tobacco- related health factors from the [place] facility where the Encounter took place. Current Smoking Status This section includes the most current smoking, or tobacco-related health factor, from the [place] facility where the Encounter took place. Date/Time Current Smoking Status Comment Davey vinson Sep 17, 2024 10:04 AM VA-TOBACCO USE BOB RY DAY CIGARETTES [place] [facility] [place] [facility] Tobacco Use History This section includes a history of the smoking, or tobacco-related health factors, that were collected on or before the date of the Encounter. The data comes from the [place] facility where the Encounter took place. Date/Time Smoking Status/Tobac co Use Comment [facility] Sep 17, 2024 10:04 AM VA-TOBACCO USE EVERY DAY CIGARETTES [facility] [place] [facility] Sep 14, 2023 10:00 AM VA-TOBACCO DOESNT USE WI 30 MIN WAKEUP [facility] [place] [facility] Sep 14, 2023 10:00 AM VA-TOBACCO USE 30 YEARS OR MORE [facility] [place] [facility] Sep 14, 2023 10:00 AM VA-TOBACCO USE ADVICE [facility] [place] [facility] Sep 14, 2023 10:00 AM VA-TOBACCO USE AUTOMOTIVE LOT ATTENDANT NO [facility] [place] [facility] Sep 14, 2023 10:00 AM VA-TOBACCO USE MED NO [facility] [place] [facility] Sep 14, 2023 10:00 AM VA-TOBACCO USER EVERY DAY [facility] [place] [facility] Aug 02, 2022 01:11 PM VA-TOBACCO USE 30 YEARS OR MORE [facility] [place] [facility] Aug 02, 2022 01:11 PM VA-TOBACCO USE ADVICE [facility] [place] [facility] Aug 02, 2022 01:11 PM VA-TOBACCO USE AUTOMOTIVE LOT ATTENDANT NO [facility] [place] [facility] Aug 02, 2022 01:11 PM VA-TOBACCO USE MED NO [facility] [place] [facility] Aug 02, 2022 01:11 PM VA-TOBACCO USE WI 30 MIN OF WAKEUP [facility] [place] [facility] Aug 02, 2022 01:11 PM VA-TOBACCO USER EVERY DAY [facility] [place] [facility] Jul 28, 2021 11:21 AM VA-TOBACCO USE 30 YEARS OR MORE [facility] [place] [facility] Jul 28, 2021 11:21 AM VA-TOBACCO USE ADVICE [facility] [place] [facility] Jul 28, 2021 11:21 AM VA-TOBACCO USE AUTOMOTIVE LOT ATTENDANT NO [facility] [place] [facility] Jul 28, 2021 11:21 AM VA-TOBACCO USE MED NO [facility] [place] [facility] Jul 28, 2021 11:21 AM VA-TOBACCO USE [place] 30 MIN OF WAKEUP [facility] [place] [facility] Jul 28, 2021 11:21 AM VA-TOBACCO USER EVERY DAY [facility] [place] [facility] Jun 04, 2020 01:59 PM VA-TOBACCO USE 30 YEARS OR MORE [facility] [place] [facility] Jun 04, 2020 01:59 PM VA-TOBACCO USE ADVICE [facility] [place] [facility] Jun 04, 2020 01:59 PM VA-TOBACCO USE AUTOMOTIVE LOT ATTENDANT NO [facility] [place] [facility] Jun 04, 2020 01:59 PM VA-TOBACCO USE MED NO [facility] [place] [facility] Jun 04, 2020 01:59 PM VA-TOBACCO USE [place] 30 MIN OF WAKEUP [facility] [place] [facility] Jun 04, 2020 01:59 PM VA-TOBACCO USER EVERY DAY [facility] [place] [facility] Mar 30, 2016 10:35 AM CURRENT SMOKER smokes about 1 pack every 3 days for about 45 years [place] [facility] [place] [facility] Radiology Reports: +/- 30 days of [...] the Encounter. The data comes from all [place] treatment facilities. Date/Time Radiology Report Provider Source Nov 26, 2024 09:35 AM LDCT LUNG CANCER SCREENING: BUCKLEY,KINJALMOHAMUD MOHAMUD [id number] -[id number] M Exm Date: NOV 26, 2024@09:35 Req Phys: PRIYANKA GUEVARA Pat Loc: [facility] PACT EIGHT MD MARTINEZ (Req'g Lo Img Loc: [place]/CT Service: Unknown [facility] [address] (Case 16 COMPLETE) LDCT LUNG CANCER SCREENING (CT Detailed) CPT:91768 Proc Modifiers : BILATERAL EXAM Reason for Study: Active smoker Clinical History: More than 20 pack years 12 months follow-up, overdue Report Status: Verified Date Reported: NOV 26, 2024 Date Verified: NOV 26, 2024 Bit Grinder E-Sig:/ES/STEPHANIE KONG Report: EXAM: CT THORAX LUNG CANCER SCR C- ADDITIONAL HISTORY: Reason for Study: Active smoker More than 20 pack years 12 months follow-up, overdue , Active smoker PROTOCOL: Screening protocol, low dose, non-ECG gated, non-contrast CT chest. Additional coronal and sagittal reconstructions. MIP reconstructions were reviewed. Secondary computer-aided detection post-processing used. COMPARISON: CT thorax September 14, 2023 and August 31, 2022 INDEX LUNG NODULE: No concerning nodule. OTHER NODULES: Small calcified granulomas. No other significant 4 mm or greater pulmonary nodule. OTHER LUNG FINDINGS: No significant acute airspace disease. Scattered reticular opacities. Areas of pleural-parenchymal scarring and subsegmental atelectasis. EMPHYSEMA: Mild PLEURA: No pleural effusion. MEDIASTINUM (limited): No significant enlarged mediastinal lymph nodes greater than 15mm in short axis . Aortic atherosclerosis. Cardiomegaly. Cardiac device. Small amount of pericardial fluid. CORONARY ARTERY CALCIFIED PLAQUE: Present. UPPER ABDOMEN (limited, nondiagnostic): Incompletely evaluated variable size hypoattenuation's in the liver suggesting cysts and similar to comparison exam. Atherosclerosis. BONES AND SOFT TISSUES (limited): No acute findings. Degenerative changes of the visualized shoulders and spine. OTHER FINDINGS: No other significant findings. Impression: LUNG-RADS [v1.1]: 2, benign nodule findings. RECOMMENDATION: 12 month follow-up screening exam. OTHER SIGNIFICANT FINDINGS: Coronary atherosclerosis. LUNG-RADS MODIFIER: S *This is a low dose screening exam for the detection of pulmonary nodules and not a substitute for diagnostic CT exams in evaluation of other lower neck, superficial, abdominal, mediastinal, and hilar soft tissues.* Primary Diagnostic Code: No immediate attention required Primary Interpreting Staff: STEPHANIE KONG, Staff Physician (Bit Grinder) /STEPHANIE ALEXANDRA [facility] Pathology Reports: +/- 30 days of the encounter Pathology Reports For cases when an order for pathology services may have been completed prior to the date of the Encounter, the report list includes the Pathology Reports that were completed up to 30 days before dateof the Encounter. For cases when an order for pathology services may have been completed after the date of the Encounter, the report list also includes the Pathology Reports that were completed up to30 days after date of the Encounter. The data comes from all [place] treatment facilities. Date/Time Pathology Report Provider Source Oct 30, 2024 10:35 AM LR MICROBIOLOGY RE PORT: Reporting Lab: [facility] [CLIA# [id number]] [address] [place] [address] Accession [UID]: [id number] [[id number]] Received: Oct 30, 2024@10:35 Collection sample: URINE CLEAN CATCH Collection date: Oct 30, 2024 10:35 Site/Specimen: URINE Provider: NUBIA EVANS NP Test(s) ordered: URINE CULTURE(MWROX).......... completed: Nov 02, 2024 08:32 * BACTERIOLOGY FINAL REPORT => Nov 02, 2024 08:32 TECH CODE: [id number] Bacteriology Remark(s): NO GROWTH IN 24 HOURS, FINAL REPORT TO FOLLOW. <10,000 CFU/ML GRAM POSITIVE (NOT OTHERWISE SPECIFIED) =--=--=--=--=--=--=--=--=--=--=-- =--=--=--=--=--=--=--=--=--=--=-- =--=--=--=-- Performing Laboratory: Bacteriology Report Performed By: [facility] [CLIA# [id number]] [address] [place] [address] [facility] Encounter Notes: All associated encounter notes This section contains the clinical notes associated to the Encounter. Date/Time Encounter Note(s) Provider Source Nov 26, 2024 12:43 PM PREVENTIVE MEDICINE RISK ASSESSMENT SCREENING NOTE: LOCAL TITLE: LUNG CANCER SCREENING DOCUMENTATION STANDARD TITLE: PREVENTIVE MEDICINE RISK ASSESSMENT SCREENING NO DATE OF NOTE: NOV 26, 2024@12:43 ENTRY DATE: NOV 26, 2024@12:43:32 AUTHOR: GENI GATES COSIGNER: URGENCY: STATUS: COMPLETED Nov Dear Mr. Buckley: Your recent lung cancer screening CT scan found a small lung nodule. Most nodules are not lung cancer, but a few can grow into lung cancer. As mentioned in the enclosed brochure, nodules are often caused by scar tissue, a healed infection, or some other irritant found in the air we breathe. Nodules are detected in up to half of screening CT scans, but very few nodules youth court judge to be cancer. In general, more than 95 out of 100 nodules found on lung cancer screening CT scans are not lung cancer. If there are additional findings, we will alert your primary care team. A copy if the results from your Low-Dose CT scan done on 11/26/2024 are enclosed with this letter. Your next lung cancer screening CT scan is due in 12 months, NOVEMBER 2025. Our radiology team will reach out to you 3 months prior to when your exam is due to get you scheduled. You may reach our radiology team M-F between the hours of 8am and 4pm at [phone] for scheduling purposes If you are experiencing an upper respiratory illness like a cold or the flu, please get your scan 4 weeks after your symptoms have gone away. Lung cancer screening can detect lung cancer, but it does not prevent it. Rarely, a CT scan can miss a small lung cancer. Contact your primary care provider if you develop new symptoms like worsening shortness of breath, change in a cough, or coughing up blood. If you still smoke cigarettes, we can help you quit. We understand that quitting cigarette smoking is difficult, but it is the best way to improve your health. When you want help, let your primary care provider know. You can also call 2-500-EHIP-VET ( ) or visit [employer].smokefree.gov. Please contact us with questions or concerns about lung cancer screening. Sincerely, Genieryn MCLEOD, RN, OCN Lung Cancer Screening Nurse Enclosures: brochure entitled, Small Lung Nodules: What You Need to Know /subhash/ GENI MCLEOD,RN,OCN LUNG CANCER SCREENING NURSE NAVIGATOR Signed: 11/26/2024 12:44 GENI GATES [place] [facility] [place] [facility] Nov 26, 2024 12:25 PM PREVENTIVE MEDICINE RISK ASSESSMENT SCREENING NOTE: LOCAL TITLE: LUNG CANCER SCREENING DOCUMENTATION STANDARD TITLE: PREVENTIVE MEDICINE RISK ASSESSMENT SCREENING NO DATE OF NOTE: NOV 26, 2024@12:25 ENTRY DATE: NOV 26, 2024@12:25:10 AUTHOR: GENI GATES EXP COSIGNER: URGENCY: STATUS: COMPLETED NO LUNG NODULES or TRACKING OF NODULE NOT INDICATED per guidelines (e.g., clearly benign/some small nodules). Date of image: Date: November 26, 2024 LDCT Scan Results: Most recent LDCT scan shows a nodule for which tracking is not indicated per guidelines or radiology report. Lung RADS Score: 2 (S) INDEX LUNG NODULE: No concerning nodule. OTHER NODULES: Small calcified granulomas. No other significant 4 mm or greater pulmonary nodule. Impression: LUNG-RADS [v1.1]: 2, benign nodule findings. RECOMMENDATION: 12 month follow-up screening exam. OTHER SIGNIFICANT FINDINGS: Coronary atherosclerosis. LUNG-RADS MODIFIER: S *This is a low dose screening exam for the detection of pulmonary nodules and not a substitute for diagnostic CT exams in evaluation of other lower neck, superficial, abdominal, mediastinal, and hilar soft tissues.* Incidental Findings: The following *INCIDENTAL FINDINGS* were noted: OTHER LUNG FINDINGS: No significant acute airspace disease. Scattered reticular opacities. Areas of pleural-parenchymal scarring and subsegmental atelectasis. EMPHYSEMA: Mild MEDIASTINUM (limited): No significant enlarged mediastinal lymph nodes greater than 15mm in short axis . Aortic atherosclerosis. Cardiomegaly. Cardiac device. Small amount of pericardial fluid. CORONARY ARTERY CALCIFIED PLAQUE: Present. UPPER ABDOMEN (limited, nondiagnostic): Incompletely evaluated variable size hypoattenuation's in the liver suggesting cysts and similar to comparison exam. Atherosclerosis. I am notifying the Primary Care Provider for information, and for follow-up of incidental findings, if indicated. Comment: Dr. Guevara and PACT team via TEAMs message and second signer in CPRS Plan: Continue routine annual lung cancer screening. Patient Notification of results: Results letter sent to patient. Comment: Results letter and educational materials mailed to address on file. Patient contacted by telephone. Comment: Call placed to the [place]. Results of [facility]CS LDCT reviewed in detail, specifically the radiology described absence of a concerning nodules or nodules over 4mm, as well as the presence of calcified granulomas. Education provided re: small pulmonary nodules, specifically, calcified granulomas. Importance of and rationale for continued surveillance with LDCT at an annual interval discussed. [place] verbalized good understanding and agreement with this plan. [place] expressed appreciation for the time spent and education provided. [place] continues to smoke and denies interested in reduction or cessation at this time, but understands that a [facility]when he is ready. /subhash/ GENI MCLEOD,RN,OCN LUNG CANCER SCREENING NURSE NAVIGATOR Signed: 11/26/2024 12:43 GENI GATES [place] [facility] [place] [facility]
--- OUTSIDE RECORDS SUMMARY | 2024-12-08 12:03 | XMS_ITS ---
Author Name [facility] [place] Organization [place] Address [address] [place] [address] Care Team Providers Care Training Associate Name Role Phone PRIYANKA GUEVARA Primary Care [...] PART A May 15, 2015 PART A [id number] KINJAL LAW SR PATIENT MEDICARE (WNR) MEDICARE (M) PART A May 15, 2015 PART A [id number] [phone] KINJAL LAW SR PATIENT Selected Encounter This section includes the information on record at [place] for the Encounter. Date/Time Encounter Type Encounter Description Reason Pro vider Source Dec 05, 2024 01:25 PM Outpatient Encounter ADMIN PAT ACTIVTIES (MASNONCT) IHE Encounter Template Text not used by [place] Plan of Treatment: Future Appointments (+ 6 months) and Future Tests (+/- 45 days) The Plan of Treatment section includes future care activities for the patient from all [place] [facility] This section includes future appointments and future orders which are active, pending or scheduled. Future Appointments This section includes appointments that were scheduled to occur 6 months from the date of the Encounter, up to a maximum of 20 appointments. The data comes from all [facility]. Appointment Date/Time Appointment Type Appointme nt Facility Name Dec 12, 2024 09:30 AM AMBULATORY - MEDICINE [facility] January 09, 2025 10:00 AM AMBULATORY - MEDICINE [facility] Mar 18, 2025 09:30 AM AMBULATORY - MEDICINE [facility] Mar 20, 2025 01:00 PM AMBULATORY MEDICINE [facility] Active, Pending, and Scheduled Orders This section includes a listing of several types of active, pending, and scheduled orders, including clinic medications orders, diagnostic test orders, procedure orders and consult orders; where the start date of the order is 45 days before the date of the Encounter or 45 days after the date of theEncounter. The data comes from all [facility]. Test Date/Time Test Type Test Details Facility Name Nov 13, 2024 01:37 PM Consult Order COMMUNITY CARE-DENTAL GENERAL Cons [employer] [facility] Lab Results: +/- 30 days of [...] Type Comment Nov 09, 2024 10:46 AM [place] PSA SERUM Specimen Type: SERUM No comment entered. Ordering Provider: VIKTOR GUEVARA Report Released Date/Time: Nov 04, 2024 12:00 PM Reporting Lab: [facility] [address] [address] Performing Lab: [address] [address] PSA 0.32 ng/mL 0.00-4.00 Nov 09, 2024 10:46 AM [place] VITAMIN D (25-OH) SERUM Specimen Type : SERUM No comment entered. Ordering Provider: PRIYANKA GUEVARA Report Released Date/Time: Nov 04, 2024 12:00 PM Reporting Lab: [address] [address] Performing Lab: [address] [address] VITAMIN D (25-OH) 16 ng/mL L 20-50 Nov 09, 2024 10:46 AM [place] LIPID PANEL FASTING SERUM Specimen Ty pe: SERUM No comment entered. Ordering Provider: PRIYANKA GUEVARA Report Released Date/Time: Nov 04, 2024 12:00 PM Reporting Lab: [address] [address] Performing Lab: [address] [address] CHOLESTEROL 205 mg/dL H TRIGLYCERIDE 175 mg/dL H 0-150 LDL calculated 141 mg/dL H 0-129 CHOL/HDL 7.1 HDL CHOLESTEROL 29 mg/dL L 40-60 Nov 09, 2024 10:46 AM [place] BASIC METABOLIC PANEL (non-fasting) SERUM Specimen Type: SERUM No comment entered. Ordering Provider: PRIYANKA GUEVARA Report Released Date/Time: Nov 04, 2024 12:00 PM Reporting Lab: [address] [address] Performing Lab: [address] [address] UREA NITROGEN 20 mg/dL 7-25 GLUCOSE 87 mg/dL 65-100 SODIUM 138 mmol/L 135-145 POTASSIUM 4.6 mmol/L 3.5-5.0 CHLORIDE 109 mmol/L 100-110 CO2 20 meq/L 20-30 CALCIUM 8.9 mg/dL 8.5-10.2 CREATININE, Serum 1.28 mg/dL 0.50-1.40 eGFR(CKD-EPI 2020) 58 mL/min L >60 Nov 09, 2024 10:46 AM [place] CBC AND DIFF (AUTO) BLOOD Specimen Ty pe: BLOOD No comment entered. Ordering Provider: PRIYANKA GUEVARA Report Released Date/Time: Nov 04, 2024 12:00 PM Reporting Lab: [facility] [address] [address] Performing Lab: [facility] [address] [facility] [address] WBC 3.10 10*3/uL L 4.50-11.00 RBC 4.05 [...] 0.0 0.0-0.0 NRBC, ABS 0.00 10*3/uL 0.00-0.00 Social History: Smoking Status (Most current) and [...] AM VA-TOBACCO NEVER U SED OTHER TYPE [place] [facility] [place] [facility] Tobacco Use History This section includes a history of the smoking, or tobacco-related health factors, that were collected on or before the date of the Encounter. The data comes from the [place] facility where the Encounter took place. Date/Time Smoking Status/Tobac co Use Comment [facility] Sep 17, 2024 10:04 AM VA-TOBACCO USE EVERY DAY CIGARETTES [place] [facility] [facility] Sep 14, 2023 10:00 AM VA-TOBACCO DOESNT USE WI 30 MIN WAKEUP [place] [facility] [place] [facility] Sep 14, 2023 10:00 AM VA-TOBACCO USE 30 YEARS OR MORE [place] [facility] [facility] Sep 14, 2023 10:00 AM VA-TOBACCO USE ADVICE [facility] [facility] Sep 14, 2023 10:00 AM VA-TOBACCO USE CASSANDRA CONSULTANT NO [facility] [place] [facility] Aug 02, 2022 01:11 PM VA-TOBACCO USE CASSANDRA CONSULTANT NO [facility] [facility] [...] Jul 28, 2021 11:21 AM VA-TOBACCO USE CASSANDRA CONSULTANT NO [facility] [facility] [...] Jun 04, 2020 01:59 PM VA-TOBACCO USE CASSANDRA CONSULTANT NO [facility] [place] [facility] Jun 04, 2020 01:59 PM VA-TOBACCO USE MED NO [facility] [facility] Jun 04, 2020 01:59 PM VA-TOBACCO USE WI 30 MIN OF WAKEUP [facility] [place] [facility] Jun 04, 2020 01:59 PM VA-TOBACCO USER EVERY DAY [facility] [place] [facility] Mar 30, 2016 10:35 AM CURRENT SMOKER smokes about 1 pack every 3 days for about 45 years [place] [facility] Radiology Reports: +/- 30 days of [...] 2024 09:35 AM LDCT LUNG CANCER SCREENING: KINJAL LAW [id number] -1950 M Exm Date: NOV 26, 2024@09:35 Req Phys: PRIYANKA GUEVARA Pat Loc: [facility] PACT EIGHT MD MARTINEZ (Req'g Lo Img Loc: [facility]/CT Service: Unknown [facility] [place] [address] (Case 16 COMPLETE) LDCT LUNG CANCER SCREENING (CT Detailed) CPT:90155 Proc Modifiers : BILATERAL EXAM Reason for Study: Active smoker Clinical History: More than 20 pack years 12 months follow-up, overdue Report Status: Verified Date Reported: NOV 26, 2024 Date Verified: NOV 26, 2024 Typewriter Tester E-Sig:/ES/STEPHANIE KONG Report: EXAM: CT THORAX LUNG CANCER [facility] C- ADDITIONAL HISTORY: Reason for Study: Active [...] Primary Interpreting Staff: STEPHANIE KONG, Staff Physician (Typewriter Tester) /STEPHANIE ALEXANDRA [facility] Encounter Notes: All associated encounter notes This section contains the clinical notes associated to the Encounter. Date/Time Encounter Note(s) Provider Source Dec 05, 2024 01:25 PM ADMINISTRATIVE NOT E: LOCAL TITLE: CCC: SCHEDULING ADMINISTRATION STANDARD TITLE: ADMINISTRATIVE NOTE DATE OF NOTE: DEC 05, 2024@13:25:19 ENTRY DATE: DEC 05, 2024@13:25:20 AUTHOR: EFFIE PEÑA EXP COSIGNER: URGENCY: STATUS: COMPLETED Caller Verification Call Back Number: [phone] Emergency Contact: BREANNA MICHAEL Emergency Contact Caller/Recipient Relation to Patient: Self Caller Name: KINJAL LAW Administrative Administrative Note Reason: Other Administrative Note Comments: vet is asking for call back at [phone] states is passing blood in his urine declined triage nurse informed could take team 72 hours to respond to message IMPORTANT: This note was created by [facility] staff. Please do not alert the staff member by adding them as a signer for future communications. Alerts are not monitored by this user. /subhash/ EFFIE PEÑA VISNikkie 1 [facility] AMSA Signed: 12/05/2024 13:25 Receipt Acknowledged By: 12/05/2024 14:20 /es/ CARLA KEENANN RN-BC REGISTERED NURSE 12/05/2024 14:17 /es/ BANDAR MORALES LPN Licensed Practical Nurse EFFIE PEÑA [facility]
--- OUTSIDE RECORDS SUMMARY | 2024-12-08 12:04 | XMS_ITS ---
Author Name Department of Vetera [place] Organization [place] Address [address] [place] [address] Care Team Providers Care Mat Puncher Name Role Phone PRIYANKA GUEVARA Primary Care [...] PART A May 15, 2015 PART A [id number] KINJAL LAW SR PATIENT MEDICARE (WNR) MEDICARE (M) PART A May 15, 2015 PART A [id number] KINJAL LAW SR PATIENT Selected Encounter This section includes the information on record at [place] for the Encounter. Date/Time Encounter Type Encounter Description Reason Pro vider Source Dec 05, 2024 02:00 PM Outpatient Encounter ADMIN PAT ACTIVTIES (MASNONCT) IHE Encounter Template Text not used by [place] Plan of Treatment: Future Appointments (+ 6 months) and Future Tests (+/- 45 days) The Plan of Treatment section includes future care activities for the patient from all [place] [facility]. This section includes future appointments and future orders which are active, pending or scheduled. Future Appointments This section includes appointments that were scheduled to occur 6 months from the date of the Encounter, up to a maximum of 20 appointments. The data comes from all [facility]. Appointment Date/Time Appointment Type Appointme nt Facility Name Dec 12, 2024 09:30 AM AMBULATORY - MEDICINE [facility] January 09, 2025 10:00 AM AMBULATORY - MEDICINE [facility] Mar 18, 2025 09:30 AM AMBULATORY - MEDICINE [facility] Mar 20, 2025 01:00 PM AMBULATORY MEDICINE [facility] Active, Pending, and Scheduled Orders This section includes a listing of several types of active, pending, and scheduled orders, including clinic medications orders, diagnostic test orders, procedure orders and consult orders; where the start date of the order is 45 days before the date of the Encounter or 45 days after the date of theEncounter. The data comes from all [facility]. Test Date/Time Test Type Test Details Facility Name Nov 13, 2024 01:37 PM Consult Order COMMUNITY CARE-DENTAL GENERAL Cons [place] [facility] Lab Results: +/- 30 days of the encounter This section includes the Chemistry and Hematology Lab Results on record with [place] for the patient. Radiology Reports and Pathology Reports are provided separately, in subsequent sections. Lab Results This section contains the Chemistry/Hematology Results that were resulted 30 days before or 30 daysafter the date of the Encounter. Date/Time Source Result Type Result - Unit Interpretation Reference Range Specimen Type Comment Nov 09, 2024 10:46 AM [place] PSA SERUM Specimen Type: SERUM No comment entered. Ordering Provider: VIKTOR GUEVARA Report Released Date/Time: Nov 04, 2024 12:00 PM Reporting Lab: [facility] [address] [facility] [address] Performing Lab: [address] [address] PSA 0.32 ng/mL 0.00-4.00 Nov 09, 2024 10:46 AM [place] VITAMIN D (25-OH) SERUM Specimen Type : SERUM No comment entered. Ordering Provider: PRIYANKA GUEVARA Report Released Date/Time: Nov 04, 2024 12:00 PM Reporting Lab: [address] [address] Performing Lab: [address] [address] VITAMIN D (25-OH) 16 ng/mL L 20-50 Nov 09, 2024 10:46 AM [place] LIPID PANEL FASTING SERUM Specimen Ty pe: SERUM No comment entered. Ordering Provider: PRIYANKA GUEVARA Report Released Date/Time: Nov 04, 2024 12:00 PM Reporting Lab: [address] [address] Performing Lab: [address] [address] CHOLESTEROL 205 mg/dL H TRIGLYCERIDE 175 mg/dL H 0-150 LDL calculated 141 mg/dL H 0-129 CHOL/HDL 7.1 HDL CHOLESTEROL 29 mg/dL L 40-60 Nov 09, 2024 10:46 AM [place] BASIC METABOLIC PANEL (non-fasting) SERUM Specimen Type: SERUM No comment entered. Ordering Provider: PRIYANKA GUEVARA Report Released Date/Time: Nov 04, 2024 12:00 PM Reporting Lab: [address] [address] Performing Lab: [address] [address] UREA NITROGEN 20 mg/dL 7-25 GLUCOSE 87 mg/dL 65-100 SODIUM 138 mmol/L 135-145 POTASSIUM 4.6 mmol/L 3.5-5.0 CHLORIDE 109 mmol/L 100-110 CO2 20 meq/L 20-30 CALCIUM 8.9 mg/dL 8.5-10.2 CREATININE, Serum 1.28 mg/dL 0.50-1.40 eGFR(CKD-EPI 2020) 58 mL/min L >60 Nov 09, 2024 10:46 AM [place] CBC AND DIFF (AUTO) BLOOD Specimen Ty pe: BLOOD No comment entered. Ordering Provider: PRIYANKA GUEVARA Report Released Date/Time: Nov 04, 2024 12:00 PM Reporting Lab: [facility] [address] [facility] [address] Performing Lab: [facility] [address] [facility] [address] WBC 3.10 10*3/uL L 4.50-11.00 RBC 4.05 [...] and tobacco- related health factors from the [place] facility where the Encounter took place. Current Smoking Status This section includes the most current smoking, or tobacco-related health factor, from the [place] facility where the Encounter took place. Date/Time Current Smoking Status Comment Facil ity Sep 17, 2024 10:04 AM VA-TOBACCO USE BOB RY DAY CIGARETTES [place] [facility] [place] [facility] Tobacco Use History This section includes a history of the smoking, or tobacco-related health factors, that were collected on or before the date of the Encounter. The data comes from the [place] facility where the Encounter took place. Date/Time Smoking Status/Tobac co Use Comment [facility] Sep 17, 2024 10:04 AM VA-TOBACCO USE EVERY DAY CIGARETTES [place] [facility] [place] [facility] Sep 14, 2023 10:00 AM VA-TOBACCO DOESNT USE WI 30 MIN WAKEUP [place] [facility] [place] [facility] Sep 14, 2023 10:00 AM VA-TOBACCO USE 30 YEARS OR MORE [place] [facility] [place] [facility] Sep 14, 2023 10:00 AM VA-TOBACCO USE ADVICE [facility] [place] [facility] Sep 14, 2023 10:00 AM VA-TOBACCO USE BEAN SNIPPER NO [facility] [place] [facility] Sep 14, 2023 10:00 AM VA-TOBACCO USE MED NO [facility] [place] [facility] Sep 14, 2023 10:00 AM VA-TOBACCO USER EVERY DAY [facility] [place] [facility] Aug 02, 2022 01:11 PM VA-TOBACCO USE 30 YEARS OR MORE [place] [facility] [place] [facility] Aug 02, 2022 01:11 PM VA-TOBACCO USE ADVICE [facility] [place] [facility] Aug 02, 2022 01:11 PM VA-TOBACCO USE BEAN SNIPPER NO [facility] [place] [facility] Aug 02, 2022 01:11 PM VA-TOBACCO USE MED NO [facility] [place] [facility] Aug 02, 2022 01:11 PM VA-TOBACCO USE WI 30 MIN OF WAKEUP [facility] [place] [facility] Aug 02, 2022 01:11 PM VA-TOBACCO USER EVERY DAY [facility] [place] [facility] Jul 28, 2021 11:21 AM VA-TOBACCO USE 30 YEARS OR MORE [facility] [facility] Jul 28, 2021 11:21 AM VA-TOBACCO USE ADVICE [facility] [facility] Jul 28, 2021 11:21 AM VA-TOBACCO USE BEAN SNIPPER NO [facility] [facility] Jul 28, 2021 11:21 AM VA-TOBACCO USE MED NO [facility] [facility] Jul 28, 2021 11:21 AM VA-TOBACCO USE WI 30 MIN OF WAKEUP [facility] [place] [facility] Jul 28, 2021 11:21 AM VA-TOBACCO USER EVERY DAY [facility] [facility] Jun 04, 2020 01:59 PM VA-TOBACCO USE 30 YEARS OR MORE [facility] [place] [facility] Jun 04, 2020 01:59 PM VA-TOBACCO USE ADVICE [facility] [place] [facility] Jun 04, 2020 01:59 PM VA-TOBACCO USE BEAN SNIPPER NO [facility] [place] [facility] Jun 04, 2020 01:59 PM VA-TOBACCO USE MED NO [facility] [facility] Jun 04, 2020 01:59 PM VA-TOBACCO USE WI 30 MIN OF WAKEUP [facility] [place] [facility] Jun 04, 2020 01:59 PM VA-TOBACCO USER EVERY DAY [facility] [facility] Mar 30, 2016 10:35 AM CURRENT SMOKER smokes about 1 pack every 3 days for about 45 years [place] [facility] Radiology Reports: +/- 30 days of [...] the Encounter. The data comes from all [place] treatment facilities. Date/Time Radiology Report Provider Source Nov 26, 2024 09:35 AM LDCT LUNG CANCER SCREENING: KINJAL LAW [id number] -1950 M Exm Date: NOV 26, 2024@09:35 Req Phys: PRIYANKA GUEVARA [facility] (Req'g Lo Img Loc: [facility]/CT Service: Unknown [facility] [place] [address] (Case 16 COMPLETE) LDCT LUNG CANCER SCREENING (CT Detailed) CPT:85798 Proc Modifiers : BILATERAL EXAM Reason for Study: Active smoker Clinical History: More than 20 pack years 12 months follow-up, overdue Report Status: Verified Date Reported: NOV 26, 2024 Date Verified: NOV 26, 2024 Clinical Quality Manager E-Sig:/ES/STEPHANIE KONG Report: EXAM: CT THORAX LUNG CANCER [facility] C- ADDITIONAL HISTORY: Reason for Study: Active [...] Primary Interpreting Staff: STEPHANIE KONG, Staff Physician (Clinical Quality Manager) /STEPHANIE ALEXANDRA [facility] Encounter Notes: All associated encounter notes This section contains the clinical notes associated to the Encounter. Date/Time Encounter Note(s) Provider Source Dec 05, 2024 02:01 PM ADMINISTRATIVE NOT E: LOCAL TITLE: CCC: SCHEDULING ADMINISTRATION STANDARD TITLE: ADMINISTRATIVE NOTE DATE OF NOTE: DEC 05, 2024@14:01:03 ENTRY DATE: DEC 05, 2024@14:01:04 AUTHOR: DAVID DA SILVA EXP COSIGNER: URGENCY: STATUS: COMPLETED CCC: SCHEDULING ADMINISTRATION Has ADDENDA Caller Verification Call Back Number: [phone] Emergency Contact: BREANNA MICHAEL Emergency Contact Caller/Recipient Relation to Patient: Self Caller Name: KINJAL LAW Administrative Administrative Note Reason: Other Administrative Note Comments: [place] calling requesting to speak to PACT team regarding peeing blood and clots, states PCP is aware. States its urgent and DECLINES TRIAGE stated it multiple times declines triage. Please call to discuss. IMPORTANT: This note was created by [facility] Clinical Contact Center staff. Please do not alert the staff member by adding them as a signer for future communications. Alerts are not monitored by this user. /subhash/ DAVID DA SILVA VISN1 [facility] AMSA Signed: 12/05/2024 14:01 Receipt Acknowledged By: 12/05/2024 14:33 /es/ CARLA KEENANN RN-BC REGISTERED NURSE 12/05/2024 14:17 /es/ BANDAR MORALES LPN Licensed Practical Nurse 12/05/2024 ADDENDUM STATUS: COMPLETED Forwarding inquiry to PCP for review /subhash/ BANDAR MORALES LPN Licensed Practical Nurse Signed: 12/05/2024 14:21 Receipt Acknowledged By: * AWAITING SIGNATURE * PRIYANKA GUEVARA 12/05/2024 ADDENDUM STATUS: COMPLETED reports that the blood is intermittent. reports that he was having difficulty with urinating last night due to blocked by blood clot which came loose and expelled allowing the urine to then flow. [place] is concerned with size and frequency of clots that he is noticing. reports that he was seen by [facility] urology provider and they wanted him to take [place] reports that he needs to speak with [place] regarding a clothing allowance. also advised that he may need to request incontinence briefs due to ongoing urinary issues. Author advised that he should contact his [facility] urology provider to discuss issues reported and to follow up with PCP at scheduled appt on 11/09/2024. If symptoms worsen then he should proceed to ED for further evaluation. Called [facility] urology clinic and left voicemail for clinic nurses reporting symptoms from noted above. Author left [place]'s contact number and PACT contact number of [phone]. /es/ CARLA KEENANN RN-BC REGISTERED NURSE Signed: 12/05/2024 15:06 Receipt Acknowledged By: * AWAITING SIGNATURE * PRIYANKA GUEVARA ASHLEY L [place] [facility]
--- OUTSIDE RECORDS SUMMARY | 2024-12-08 12:04 | XMS_ITS | Encounter Summary ---
Author Name [facility] [place] Organization [place] Address [address] [place] [address] Care Team Providers Care Numerical Control Nesting Operator Name Role Phone PRIYANKA GUEVARA Primary [...] PART A May 15, 2015 PART A [id number] KINJAL LAW SR PATIENT MEDICARE (WNR) MEDICARE (M) PART A May 15, 2015 PART A [id number] KINJAL LAW SR PATIENT Selected Encounter This section includes the information on record at [place] for the Encounter. Date/Time Encounter Type Encounter [...] PM PRIMARY Unspecified atrial flutter HOMARJD Alfredo [place] Oct 20, 2024 12:49 PM SECONDARY Chronic kidney disease, stage 3 unspecified JD GRAF [place] Oct 20, 2024 12:49 PM SECONDARY Essential (primary) hypertension JD GRAF [place] Oct 20, 2024 12:49 PM SECONDARY Hyperlipidemia, unspecified HOMARJD C [place] Oct 20, 2024 12:49 PM SECONDARY FDC (current) use of anticoagulants HOMARJD C [place] Oct 20, 2024 12:49 PM SECONDARY Nicotine dependence, unspecified, uncomplicated HOMARJD Alfredo [place] Oct 20, 2024 12:49 PM SECONDARY Personal history of adenomatous and serrated colon polyps JD GRAF [place] Oct 20, 2024 12:49 PM SECONDARY Prediabetes HOMARJD Alfredo [place] Oct 20, 2024 12:49 PM SECONDARY Presence of cardiac pacemaker JD GRAF [place] Plan of Treatment: Future Appointments (+ 6 months) and Future Tests (+/- 45 days) The Plan of Treatment section includes future care activities for the patient from all [facility]. This section includes future appointments and future orders which are active, pending or scheduled. Future Appointments This section includes appointments that were scheduled to occur 6 months from the date of the Encounter, up to a maximum of 20 appointments. The data comes from all [facility]. Appointment Date/Time Appointment Type Appointme nt Facility Name Sep 28, 2024 09:00 AM AM[place]UL[place]ORY [place]ICINE [place] [facility] [place] [facility] Oct 15, 2024 11:30 AM [place] [facility] [place] [facility] Oct 26, 2024 11:30 AM [facility]ORY - MEDICINE [facility] Oct 29, 2024 10:45 AM [place] [facility] [facility] Nov 01, 2024 03:30 PM [facility]UL[facility]ORY - MEDICINE [facility] Nov 13, 2024 11:00 AM [place] [facility] [place] [facility] Nov 26, 2024 09:45 AM AMBULATORY - NONE [place] [facility] [facility] Dec 12, 2024 09:30 AM [facility] January 09, 2025 10:00 AM [facility] Active, Pending, and Scheduled Orders This section includes a listing of several types of active, pending, and scheduled orders, including clinic medications orders, diagnostic test orders, procedure orders and consult orders; where the start date of the order is 45 days before the date of the Encounter or 45 days after the date of theEncounter. The data comes from all [place] treatment facilities. Test Date/Time Test Type Test Details Facility Name Sep 13, 2024 10:01 AM Consult Order [facility] CARE-UROLOGY Cons [facility] Oct 20, 2024 01:20 PM Consult Order [facility]GI [facility] Lab Results: +/- 30 days of the encounter This section includes the Chemistry and Hematology Lab Results on record with [place] for the patient. Radiology Reports and Pathology Reports are provided separately, in subsequent sections. Lab Results This section contains the Chemistry/Hematology Results that were resulted 30 days before or 30 daysafter the date of the Encounter. Date/Time Source Result Type Result - Unit Interpretation Reference Range Specimen Type Comment Sep 04, 2024 11:22 AM [place] BASIC METABOLIC PANEL (fasting) SERUM Specimen Type: SERUM No comment entered. Ordering Provider: JD GRAF Report Released Date/Time: Jun 13, 2024 03:11 PM Reporting Lab: [address] [address] Performing Lab: [address] [address] UREA NITROGEN 24 mg/dL 7-25 GLUCOSE 86 mg/dL 65-100 SODIUM 138 mmol/L 135-145 POTASSIUM 4.9 mmol/L 3.5-5.0 CHLORIDE 105 mmol/L 100-110 CO2 23 meq/L 20-30 CREATININE, Serum 1.41 mg/dL H 0.50-1.40 eGFR(CKD-EPI 2020) 52 mL/min L >60 Sep 04, 2024 11:22 AM [place] LIPID PANEL FASTING SERUM Specimen Ty pe: SERUM No comment entered. Ordering Provider: JD GRAF Report Released Date/Time: Jun 13, 2024 03:11 PM Reporting Lab: [address] [place] [address] Performing Lab: [address] [address] CHOLESTEROL 272 mg/dL H TRIGLYCERIDE 188 mg/dL H 0-150 LDL calculated 202 mg/dL H 0-129 CHOL/HDL 8.5 HDL CHOLESTEROL 32 mg/dL L 40-60 Sep 04, 2024 11:22 AM [place] LIVER FUNCTION SERUM Specimen Type: SERUM No comment entered. Ordering Provider: JD GRAF Report Released Date/Time: Jun 13, 2024 03:11 PM Reporting Lab: [address] [address] Performing Lab: [address] [address] PROTEIN,TOTAL 7.5 g/dL 6.0-8.3 ALBUMIN 4.0 g/dL 3.5-5.0 ALKALINE PHOSPHATASE 66 U/L 40-150 AST 16 U/L 5-34 ALT 21 U/L BILIRUBIN, TOTAL 0.5 mg/dL 0.2-1.2 Sep 04, 2024 11:22 AM [place] HEMOGLOBIN A1C PANEL BLOOD Specimen T ype: BLOOD Comment: Values obtained from A1C measurements can vary. For atypical A1C assays, a reported value of 7.0 could actually be between 6.72 and 7.28 if measured by a reference method. A reported value of 9.0 could actually be between 8.73 and 9.27. Ref: http://www.ngsp.org/CAPdata.asp Ordering Provider: JD GRAF Report Released Date/Time: Jun 13, 2024 03:11 PM Reporting Lab: [address] [address] Performing Lab: [address] [address] HEMOGLOBIN A1C 6.2 H 4.0-5.6 Sep 04, 2024 11:22 AM [place] TSH SERUM Sp ecimen Type: SERUM No comment entered. Ordering Provider: JD GRAF Report Released Date/Time: Jun 13, 2024 03:11 PM Reporting Lab: [address] [place] [address] Performing Lab: [facility] [address] [facility] [address] TSH 1.89 u[IU]/mL 0.35-5.00 Sep 04, 2024 11:22 AM [place] CBC AND DIFF (AUTO) BLOOD Specimen Ty pe: BLOOD No comment entered. Ordering Provider: JD GRAF Report Released Date/Time: Jun 13, 2024 03:11 PM Reporting Lab: [facility] [address] [facility] [address] Performing Lab: [address] [address] WBC 3.34 10*3/uL L 4.50-11.00 RBC 4.30 [...] H 0.0-0.7 IMMATURE GRAN, ABS 0.04 10*3/uL 0.00-0.0 6 NRBC % 0.0 0.0-0.0 NRBC, ABS 0.00 10*3/uL 0.00-0.00 Sep 04, 2024 11:21 AM [place] ALPHA-FETOPROTEIN SERUM Specimen Type : SERUM No comment entered. Ordering Provider: JD GRAF Report Released Date/Time: Jun 20, 2024 12:48 PM Reporting Lab: [facility] [address] [facility] [address] Performing Lab: [facility] [address] [facility] [address] ALPHA-FETOPROTEIN 3.97 ng/mL 0-10 Sep 04, 2024 11:21 AM [place] VITAMIN D (25-OH) SERUM Specimen Type : SERUM No comment entered. Ordering Provider: JD GRAF Report Released Date/Time: Jun 20, 2024 12:48 PM Reporting Lab: [facility] [address] [facility] [address] Performing Lab: [facility] [address] [facility] [address] VITAMIN D (25-OH) 17 ng/mL L 20-50 Vital Signs: All taken on the encounter date This section contains inpatient and outpatient Vital Signs collected on the date of the Encounter. Date/Time Temperature Pulse Blood Pressure Respiratory Rate SP02 Pain Height Weight Body Mass Index Source Sep 17, 2024 10:02 AM 97.8 66 137/83 19 95 70.5 228 32 [facility] Social History: Smoking Status (Most current) and Tobacco Use (All prior to encounter date) This section includes the most current, and the historical, smoking and tobacco- related health factors from the [place] facility where the Encounter took place. Current Smoking Status This section includes the most current smoking, or tobacco-related health factor, from the [place] facility where the Encounter took place. Date/Time Current Smoking Status Comment Facil ity Sep 17, 2024 10:00 AM [place]-TOBACCO SCREEN FOLLOW-UP [facility] Tobacco Use History This section includes a history of the smoking, or tobacco-related health factors, that were collected on or before the date of the Encounter. The data comes from the [place] facility where the Encounter took place. Date/Time Smoking Status/Tobacco Use Comment F acility Sep 17, 2024 10:00 AM [place]-TOBACCO USE ADVICE [facility] Sep 17, 2024 10:00 AM [place]-TOBACCO USE DIGITAL EDITOR NO [place] Sep 17, 2024 10:00 AM [place]-TOBACCO USE MED NO [place] Feb 01, 2019 08:32 AM VA-TOBACCO DOESNT USE WI 30 MIN WAKEUP [facility] Feb 01, 2019 08:32 AM VA-TOBACCO USE 30 YEARS OR MORE [facility] Feb 01, 2019 08:32 AM VA-TOBACCO USE ADVICE [facility] Feb 01, 2019 08:32 AM VA-TOBACCO USE DIGITAL EDITOR NO [place] Feb 01, 2019 08:32 AM VA-TOBACCO USE MED NO [place] Feb 01, 2019 08:32 AM VA-TOBACCO USER EVERY DAY [facility] Nov 14, 2017 09:03 AM VA-TOBACCO DOESNT USE [place] 30 MIN WAKEUP [facility] Nov 14, 2017 09:03 AM VA-TOBACCO USE 30 YEARS OR MORE [facility] [facility] Nov 14, 2017 09:03 AM VA-TOBACCO USE ADVICE [facility] Nov 14, 2017 09:03 AM VA-TOBACCO USE DIGITAL EDITOR NO [place] Nov 14, 2017 09:03 AM VA-TOBACCO USE MED NO [place] Nov 14, 2017 09:03 AM VA-TOBACCO USER EVERY DAY [facility] May 16, 2017 10:14 AM CURRENT SMOKER ~3 cigarettes per day [facility] [facility] May 16, 2017 10:14 AM V1-PT NOT INTEREST ED IN QUIT TOBACCO USE [facility] Nov 01, 2016 09:00 AM CURRENT SMOKER [facility] Nov 01, 2016 09:00 AM V1-PT NOT INTEREST ED IN QUIT TOBACCO USE [place] May 03, 2016 01:05 PM V1-PT DECLINES REF TO TOBACCO CESS [facility] May 03, 2016 01:05 PM V1-PT DECLINES TOB ACCO CESSATION [facility] May 03, 2016 01:05 PM V1-PT THINKING ABO UT QUIT TOBACCO USE [place] Feb 19, 2014 08:45 AM V1-PT DECLINES REF TO TOBACCO CESS [facility] Feb 19, 2014 08:45 AM V1-PT DECLINES TOB ACCO CESSATION [facility] Feb 19, 2014 08:45 AM V1-PT THINKING ABO UT QUIT TOBACCO USE [place] Jun 04, 2013 08:39 AM CURRENT SMOKER smokes a pack of cigaretts a week. [place] Jun 04, 2013 08:39 AM V1-PT DECLINES REF TO TOBACCO CESS [facility] Jun 04, 2013 08:39 AM V1-PT DECLINES TOB ACCO CESSATION [facility] Jun 04, 2013 08:39 AM V1-PT THINKING ABO UT QUIT TOBACCO USE [facility] [facility] Aug 28, 2012 09:51 AM V1-PT DECLINES REF TO TOBACCO CESS [facility] Aug 28, 2012 09:51 AM V1-PT DECLINES TOB ACCO CESSATION [facility] Aug 28, 2012 09:51 AM V1-PT READY TO CARIDAD T TOBACCO USE [place] January 03, 2012 08:39 AM CURRENT SMOKER [facility] January 03, 2012 08:39 AM V1-PT DECLINES REF TO TOBACCO CESS [facility] January 03, 2012 08:39 AM V1-PT DECLINES TOB ACCO CESSATION [facility] January 03, 2012 08:39 AM V1-PT THINKING ABO UT QUIT TOBACCO USE [place] Jul 22, 2011 08:19 AM V1-PT DECLINES REF TO TOBACCO CESS [facility] Jul 22, 2011 08:19 AM V1-PT DECLINES TOB ACCO CESSATION [facility] Jul 22, 2011 08:19 AM V1-PT NOT INTEREST ED IN QUIT TOBACCO USE [place] Jan 25, 2011 08:38 AM CURRENT SMOKER [facility] Jan 25, 2011 08:38 AM V1-PT DECLINES REF TO TOBACCO CESS [facility] Jan 25, 2011 08:38 AM V1-PT DECLINES TOB ACCO CESSATION [facility] Jan 25, 2011 08:38 AM V1-PT THINKING ABO UT QUIT TOBACCO USE [place] Sep 03, 2009 12:43 PM CURRENT SMOKER advise stop [facility] [place] Sep 03, 2009 12:43 PM V1-PT DECLINES REF TO TOBACCO CESS [facility] Sep 03, 2009 12:43 PM V1-PT DECLINES TOB ACCO CESSATION [facility] Sep 03, 2009 12:43 PM V1-PT NOT INTEREST ED IN QUIT TOBACCO USE [place] Jun 28, 2008 11:28 AM V1-PT DECLINES REF TO TOBACCO CESS [facility] Jun 28, 2008 11:28 AM V1-PT DECLINES TOB ACCO CESSATION [facility] Jun 28, 2008 11:28 AM V1-PT NOT INTEREST ED IN QUIT TOBACCO USE [place] Jun 28, 2008 09:31 AM CURRENT SMOKER 5-6 cigarettes/day [facility] Mar 18, 2005 09:38 AM CURRENT SMOKER [facility] December 28, 2001 08:58 AM CURRENT SMOKER Patient states he has smoked from age 16-present, 1/2 pk cigarettes daily. [facility] Encounter Notes: All associated encounter notes This section contains the clinical notes associated to the Encounter. Date/Time Encounter Note(s) Provider Source Sep 17, 2024 10:00 AM PRIMARY CARE NURSE PRACTITIONER OUTPATIENT NOTE: LOCAL TITLE: NURSE PRACTITIONER OUTPATIENT NOTE STANDARD TITLE: PRIMARY CARE NURSE PRACTITIONER OUTPATIENT NOTE DATE OF NOTE: SEP 17, 2024@10:00 ENTRY DATE: SEP 17, 2024@10:00:50 AUTHOR: JD GRAF COSIGNER: URGENCY: STATUS: COMPLETED PRIMARY CARE VISIT KINJAL HOLA LAW, is a 74 y/o BLACK OR MALE [place] who presents today at the [place] [facility]. TYPE OF VISIT: Face to face [...] EXAMINATION: General: Well-appearing in no obvious distress. Obese. Mental Status: [...] complications, monitor closely 3. Hypertension (SNOMED CT 47501277) - stable, continue Rx. 4. Hyperlipidemia (SNOMED CT 24417553) - lipids elevated. Discussed diet modification. Start [...] and/or sooner PRN UPCOMING APPOINTMENTS: 12/12/2024 09:[address] [facility] PODIATRY 1 03/20/2025 13:00 [facility] OPTOMETRY 1 PM No barriers noted; [...] of active outpatient prescriptions dispensed from this [place] (local) and dispensed from another [place] or [place] facility (remote) as well as inpatient orders [...] CERTIFIED NURSE PRACTITIONER Signed: 10/20/2024 12:48 JD GRAF [place]
--- OUTSIDE RECORDS SUMMARY | 2024-12-08 12:04 | XMS_ITS | Encounter Summary ---
Author Name [facility] [place] Address [address] [place] [address] Care Team Providers Care Staff Appraiser Name Role Phone PRIYANKA GUEVARA Primary Care [...] PART A May 15, 2015 PART A [id number] KINJAL LAW SR PATIENT MEDICARE (WNR) MEDICARE (M) PART A May 15, 2015 PART A [id number] [phone] KINJAL LAW SR PATIENT Selected Encounter This section includes the information on record at [place] for the Encounter. Date/Time Encounter Type Encounter Description Reason Pro vider Source Dec 03, 2024 08:44 AM Outpatient Encounter OPTOMETRY I[facility] Encounter Template Text not used by [place] Plan of Treatment: Future Appointments (+ 6 months) and Future Tests (+/- 45 days) The Plan of Treatment section includes future care activities for the [place] [facility] [place] [facility] This section includes future appointments [...] 12, 2024 09:30 AM AMBULATORY - MEDICINE [facility] January 09, 2025 10:00 AM AMBULATORY - MEDICINE [facility] Mar 18, 2025 09:30 AM AMBULATORY - MEDICINE [facility] Mar 20, 2025 01:00 PM [facility] Active, Pending, and Scheduled Orders This section includes a listing of several types of active, pending, and scheduled orders, including clinic medications orders, diagnostic test orders, procedure orders and consult orders; where the start date of the order is 45 days before the date of the Encounter or 45 days after the date of theEncounter. The data comes from all [place] treatment facilities. Test Date/Time Test Type Test Details Facility Name Oct 20, 2024 01:20 PM Consult Order [facility] [employer] [facility] Nov 13, 2024 01:37 PM Consult Order [facility]DENTAL GENERAL [facility] [employer] [facility] Lab Results: +/- 30 days of the encounter This section includes the Chemistry and Hematology Lab Results on record with [place] for the patient. Radiology Reports and Pathology Reports are provided separately, in subsequent sections. Lab Results This section contains the Chemistry/Hematology Results that were resulted 30 days before or 30 daysafter the date of the Encounter. Date/Time Source Result Type Result - Unit Interpretation Reference Range Specimen Type Comment Nov 09, 2024 10:46 AM [facility] PSA SERUM Specimen Type: SERUM No comment entered. Ordering Provider: VIKTOR GUEVARA Report Released Date/Time: Nov 04, 2024 12:00 PM Reporting Lab: [facility] [address] [facility] [address] Performing Lab: [address] [address] PSA 0.32 ng/mL 0.00-4.00 Nov 09, 2024 10:46 AM [facility] BASIC METABOLIC PANEL (non-fasting) SERUM Specimen Type: SERUM No comment entered. Ordering Provider: PRIYANKA GUEVARA Report Released Date/Time: Nov 04, 2024 12:00 PM Reporting Lab: [facility] [address] [facility] [address] Performing Lab: [address] [address] UREA NITROGEN 20 mg/dL 7-25 GLUCOSE 87 mg/dL 65-100 SODIUM 138 mmol/L 135-145 POTASSIUM 4.6 mmol/L 3.5-5.0 CHLORIDE 109 mmol/L 100-110 CO2 20 meq/L 20-30 CALCIUM 8.9 mg/dL 8.5-10.2 CREATININE, Serum 1.28 mg/dL 0.50-1.40 eGFR(CKD-EPI 2020) 58 mL/min L >60 Nov 09, 2024 10:46 AM [facility] CBC AND DIFF (AUTO) BLOOD Specimen Ty pe: BLOOD No comment entered. Ordering Provider: PRIYANKA GUEVARA Report Released Date/Time: Nov 04, 2024 12:00 PM Reporting Lab: [facility] [address] [facility] [address] Performing Lab: [address] [address] WBC 3.10 10*3/uL L 4.50-11.00 RBC 4.05 [...] 0.0 0.0-0.0 NRBC, ABS 0.00 10*3/uL 0.00-0.00 Nov 09, 2024 10:46 AM [facility] LIPID PANEL FASTING SERUM Specimen Ty pe: SERUM No comment entered. Ordering Provider: PRIYANKA GUEVARA Report Released Date/Time: Nov 04, 2024 12:00 PM Reporting Lab: [address] [address] Performing Lab: [address] [address] CHOLESTEROL 205 mg/dL H TRIGLYCERIDE 175 mg/dL H 0-150 LDL calculated 141 mg/dL H 0-129 CHOL/HDL 7.1 HDL CHOLESTEROL 29 mg/dL L 40-60 Nov 09, 2024 10:46 AM [facility] VITAMIN D (25-OH) SERUM Specimen Type : SERUM No comment entered. Ordering Provider: PRIYANKA GUEVARA Report Released Date/Time: Nov 04, 2024 12:00 PM Reporting Lab: [address] [address] Performing Lab: [address] [address] VITAMIN D (25-OH) 16 ng/mL L 20-50 Social History: Smoking Status (Most current) and [...] AM VA-TOBACCO USE BOB RY DAY CIGARETTES [place] [facility] [place] [facility] Tobacco Use History This section includes a [...] EVERY DAY CIGARETTES [facility] [place] [facility] Sep 14, 2023 10:00 AM VA-TOBACCO DOESNT USE [place] 30 MIN WAKEUP [facility] [place] [facility] Sep 14, 2023 10:00 AM VA-TOBACCO USE 30 YEARS OR MORE [facility] [place] [facility] Sep 14, 2023 10:00 AM VA-TOBACCO USE ADVICE [facility] [place] [facility] Sep 14, 2023 10:00 AM VA-TOBACCO USE DEPUTY SHERIFF CHIEF NO [facility] [place] [facility] Sep 14, 2023 10:00 AM VA-TOBACCO USE MED NO [facility] [place] [facility] Sep 14, 2023 10:00 AM VA-TOBACCO USER EVERY DAY [facility] [place] [facility] Aug 02, 2022 01:11 PM VA-TOBACCO USE 30 YEARS OR MORE [facility] [place] [facility] Aug 02, 2022 01:11 PM VA-TOBACCO USE ADVICE [facility] [place] [facility] Aug 02, 2022 01:11 PM VA-TOBACCO USE DEPUTY SHERIFF CHIEF NO [facility] [place] [facility] Aug 02, 2022 01:11 PM VA-TOBACCO USE MED NO [facility] [place] [facility] Aug 02, 2022 01:11 PM VA-TOBACCO USE [place] 30 MIN OF WAKEUP [facility] [place] [facility] Aug 02, 2022 01:11 PM VA-TOBACCO USER EVERY DAY [facility] [place] [facility] Jul 28, 2021 11:21 AM VA-TOBACCO USE 30 YEARS OR MORE [facility] [place] [facility] Jul 28, 2021 11:21 AM VA-TOBACCO USE ADVICE [facility] [place] [facility] Jul 28, 2021 11:21 AM VA-TOBACCO USE DEPUTY SHERIFF CHIEF NO [facility] [place] [facility] Jul 28, 2021 11:21 AM VA-TOBACCO USE MED NO [facility] [place] [facility] Jul 28, 2021 11:21 AM VA-TOBACCO USE [place] 30 MIN OF WAKEUP [facility] [place] [facility] Jul 28, 2021 11:21 AM VA-TOBACCO USER EVERY DAY [facility] [place] [facility] Jun 04, 2020 01:59 PM VA-TOBACCO USE 30 YEARS OR MORE [facility] [place] [facility] Jun 04, 2020 01:59 PM VA-TOBACCO USE ADVICE [facility] [place] [facility] Jun 04, 2020 01:59 PM VA-TOBACCO USE DEPUTY SHERIFF CHIEF NO [facility] [place] [facility] Jun 04, 2020 01:59 PM VA-TOBACCO USE MED NO [facility] [place] [facility] Jun 04, 2020 01:59 PM VA-TOBACCO USE [place] 30 MIN OF WAKEUP [facility] [place] [facility] Jun 04, 2020 01:59 PM VA-TOBACCO USER EVERY DAY [facility] [place] [facility] Mar 30, 2016 10:35 AM CURRENT SMOKER smokes about 1 pack every 3 days for about 45 years [place] [facility] [facility] Radiology Reports: +/- 30 days of the [...] the Encounter. The data comes from all [place] treatment facilities. Date/Time Radiology Report Provider Source Nov 26, 2024 09:35 AM LDCT LUNG CANCER SCREENING: LAW,KINJALMOHAMUD MOHAMUD [id number] -[id number] M Exm Date: NOV 26, 2024@09:35 Req Phys: PRIYANKA GUEVARA Pat Loc: [facility] PACT EIGHT MD MARTINEZ (Req'g Lo Img Loc: [place]/CT Service: Unknown [facility] [place] [address] (Case 16 COMPLETE) LDCT LUNG CANCER SCREENING (CT Detailed) CPT:18901 Proc Modifiers : BILATERAL EXAM Reason for Study: Active smoker Clinical History: More than 20 pack years 12 months follow-up, overdue Report Status: Verified Date Reported: NOV 26, 2024 Date Verified: NOV 26, 2024 Grass Cutter E-Sig:/ES/STEPHANIE KONG Report: EXAM: CT THORAX LUNG [...] Primary Interpreting Staff: STEPHANIE KONG, Staff Physician (Grass Cutter) /STEPHANIE ALEXANDRA [facility] Encounter Notes: All associated encounter notes This section contains the clinical notes associated to the Encounter. Date/Time Encounter Note(s) Provider Source Dec 03, 2024 08:44 AM OPTOMETRY NOTE: LOCAL TITLE: OPTOMETRY NOTE STANDARD TITLE: OPTOMETRY NOTE DATE OF NOTE: DEC 03, 2024@08:44 ENTRY DATE: DEC 03, 2024@08:44:44 AUTHOR: RACHEL BERGER [facility] EXP COSIGNER: URGENCY: STATUS: COMPLETED OPT HT ordered patient 1 time yearly replacement pair of eyeglasses as requested d/t lost pair, unrepairable/not under warranty, or scratched lenses. Approved by provider. /subhash/ Rachel [facility] [employer] Support Signed: 12/03/2024 08:44 RACHEL BERGER [facility]
--- OUTSIDE RECORDS SUMMARY | 2024-12-08 12:04 | XMS_ITS | Continuity of Care Document ---
Author Name [facility] Organization [facility] Care Team Providers Care Footwear Sales Associate Name Role Phone [facility] Unavailable Unavailable Problems Combined list of problems from Department of Defense and Veterans Affairs facilities. It does not include entries that were removed or entered in error. Problem Status Onset Date Problem Type Date of Resolution Comments Source Atrial flutter Active Condition Sep Entered By: WIN MCMULLEN Comment: New Dx SEP 02: Pacemaker Placed [facility]; now on EliquisFeb 2018 Entered By: WIN MCMULLEN Comment: A Flutter Noted Incidentally During Eval for Prostate BxOct 20, 2024 Entered By: JD GRAF Comment: followed by cardiology [facility] Cardiac pacemaker in situ Active Condition Dec 01, 2018 Entered By: EMANUEL MATTHEWS Comment: placed 10/03 for a-flutter w/slow ventricular respone,heart block [facility] CKD stage 3 Active Condition Jun 17, 2024 Entered By: JD GRAF Comment: 10/17/23 GFR 42Oct 20, 2024 Entered By: JD GRAF Comment: 09/04/24 GFR 52 [facility] Eczema Active Condition [facility] Elevated PSA Active Condition Jun 17, 2024 Entered By: JD GRAF Comment: Prostate Bx was scheduled SEP 02 [facility] but cancelled d/t AFlutter dx [facility] GERD - Gastro-esophageal reflux disease Active Condition [facility] Gout Active Condition [facility] H/O: recreational drug use Active Condition Jun 20, 2024 Entered By: JD GRAF Comment: cocaine, marijuana [facility] History of alcohol abuse Active Condition Jun 20, 2024 Entered By: JD GRAF Comment: 06/20/24 states he drinks a nip on the holidays [facility] Hyperlipidemia (SNOMED CT 35188413) Active Condition [facility] Hypertension (SNOMED CT 34903526) Active Condition [facility] [...] 10/03 negative and scanned into [facility] Nicotine dependence Active Condition Jun 24, 2024 Entered By: JD GRAF Comment: 3 cig/day since age 7Mar 2024 Entered By: JD GRAF Comment: 09/17/24 down to 2 cig/day [facility] Obesity Active Condition Jun 24 Entered By: [...] JD GRAF Comment: hx radiation approx 2021 [facility] PTSD - Post-traumatic stress disorder Active Condition [facility] Refractive error (ICD-9-CM 367.9) Active Condition [facility] Screening for malignant neoplasm of colon done Active Condition Jun 14, 2012 Entered By: EMANUEL MATTHEWS Comment: colonoscopy dr mehta 05/26 no poylps or ticsJun 17, 2024 Entered By: JD GRAF Comment: 09/2019 colonoscopy unable to full remove and one completely excised tubular adenoma [facility] Secondary erectile dysfunction Active Condition [facility] ACCRETIONS ON TEETH Inactive Condition 12/02/2011 [facility] Chest Findings Inactive Condition 02/07/2012 Sep 19, 2009 Entered By: WIN MCMULLEN Comment: CXR AUG 2009 - No Active Disease [facility] Dry Skin (ICD-9-CM 706.8) Inactive Condition 12/02/2011 [facility] Folliculitis * (ICD-9-CM 704.8) Inactive Condition 12/02/2011 [facility] Hyperglycemia Inactive Condition 06/17/2024 [facility] Impaired Fasting Glucose (ICD-9-CM 790.21) Inactive Condition 06/17/2024 [facility] Lack of Housing (ICD-9-CM V60.0) Inactive Condition 06/17/2024 [facility] Low back pain Inactive Condition 06/20/2024 [facility] Melasma * Inactive Condition 06/20/2024 [facility] Seborrheic dermatitis Inactive Condition 06/20/2024 [facility] Tinea * (ICD-9-CM 110.9) Inactive Condition 02/07/2012 [facility] Unemployment * Inactive Condition 06/17/2024 [facility] UNSPECIFIED DENTAL CARIES Inactive Condition 12/02/2011 [facility] Diagnosis: ICD-10-CM Z12.2 Encntr screen for malignant neoplasm of respiratory organs Active Diagnosis [facility] Diagnosis: ICD-10-CM N18.30 Chronic kidney disease, stage 3 unspecified Active Diagnosis [facility] Diagnosis: ICD-10-CM R31.9 Hematuria, unspecified Active Diagnosis [facility] Diagnosis: ICD-10-CM I48.92 Unspecified atrial flutter Active Diagnosis [place] [facility] Diagnosis: ICD-10-CM L60.3 Nail dystrophy Active Diagnosis [facility] Diagnosis: ICD-10-CM Z04.89 Encounter for examination and observation for oth reasons Active Diagnosis [facility] Diagnosis: ICD-10-CM K92.1 Melena Active Diagnosis [facility] Diagnosis: ICD-10-CM K03.81 Cracked tooth [facility] Diagnosis: ICD-10-CM Z46.0 Encounter for fit/adjst of spectacles and contact lenses Active Diagnosis [facility] [place] [facility] Diagnosis: ICD-10-CM H40.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 Medication Details Route Status Patient Instructions Prescription Expires Prescription Number Last Dispense Date Ordering Provider Order Date Order Qty Source ALLOPURINOL 300MG TAB TAKE ONE TABLET BY MOUTH ONCE DAILY FOR GOUT ORAL ACTIVE 09/18/2025 [id number] 5 Blaine GRAF 2024 90 [facility] IELD ALLOPURINOL 300MG TAB TAKE ONE TABLET BY MOUTH ONCE DAILY FOR GOUT ORAL DISCONT INUED 07/17/2025 [id number] 4 Blaine GRAF 2023 90 [facility] IELD ALLOPURINOL 300MG TAB TAKE ONE TABLET BY MOUTH ONCE DAILY FOR GOUT ORAL DISCONT INUED 04/29/2024 [id number] AARON MATTHEWS 2022 90 [facility] IELD AMLODIPINE BESYLATE 10MG TAB TAKE ONE TABLET BY MOUTH ONCE DAILY FOR BLOOD PRESSURE /HEART, DO NOT TAKE WITH GRAPEFRU IT JUICE ORAL ACTIVE 09/18/2025 [id number] 5 Blaine GRAF 2024 90 [facility] IELD AMLODIPINE BESYLATE 10MG TAB TAKE ONE TABLET BY MOUTH ONCE DAILY FOR BLOOD PRESSURE /HEART, DO NOT TAKE WITH GRAPEFRU IT JUICE ORAL DISCONT INUED 06/25/2025 [id number] 4 Blaine GRAF 2023 90 [facility] IELD AMLODIPINE BESYLATE 10MG TAB TAKE ONE TABLET BY MOUTH ONCE DAILY FOR BLOOD PRESSURE /HEART, DO NOT TAKE WITH GRAPEFRU IT JUICE ORAL DISCONT INUED 06/05/2024 [id number] 4 DARRELL LAMBERT RMYINA F 2023 90 [place] AMLODIPINE BESYLATE 10MG TAB TAKE ONE TABLET BY MOUTH ONCE DAILY FOR BLOOD PRESSURE /HEART, DO NOT TAKE WITH GRAPEFRU IT JUICE ORAL DISCONT INUED 04/29/2024 [id number] AARON MATTHEWS 2022 90 [place] AMOXICILLIN TRIHYDRATE 500MG CAP TAKE ONE CAPSULE BY MOUTH FOUR TIMES A DAY ORAL DISCONT INUED BY TARAN R 08/16/2024 [id number] 4 JOSHUA MORALES 2023 28 [facility] APIXABAN 5MG TAB TAKE ONE TABLET BY MOUTH TWICE DAILY ORAL ACTIVE 09/18/2025 [id number] 5 Blaine GRAF 2024 180 [place] APIXABAN 5MG TAB TAKE ONE TABLET BY MOUTH TWICE DAILY ORAL DISCONT INUED 08/25/2025 [id number] 5 Blaine GRAF 2024 180 [place] APIXABAN 5MG TAB TAKE ONE TABLET BY MOUTH TWICE DAILY ORAL DISCONT INUED 08/19/2024 [id number] 4 DARRELL LAMBERT RMYINA F 2023 180 [place] APIXABAN 5MG TAB TAKE ONE TABLET BY MOUTH TWICE DAILY ORAL DISCONT INUED 04/29/2024 [id number] AARON MATTHEWS 2022 180 [place] ATORVASTATI N CA 40MG TAB TAKE ONE-HALF TABLET BY MOUTH AT BEDTIME FOR HIGH CHOLESTE ROL ORAL ACTIVE 09/18/2025 [id number] 5 Blaine GRAF 2024 45 [place] BISACODYL 5MG TAB,EC TAKE TWO TABLETS BY MOUTH AT BEDTIME FOR BOWELS - LAXATIVE ORAL ACTIVE 10/30/2025 [id number] ADRI LLOYD 2024 180 [place] BISACODYL 5MG TAB,EC TAKE TWO TABLETS BY MOUTH AT BEDTIME FOR BOWELS - LAXATIVE ORAL DISCONT INUED 08/25/2025 [id number] 5 ADRI LLOYD 2024 180 [place] CHLORHEXIDI NE GLUCONATE 0.12% RINSE,ORAL RINSE WITH 10ML BY MOUTH TWICE DAILY FOR 21 DAYS ORAL DISCONT INUED BY PROVIDE R 08/16/2024 [id number] JOSHUA MORALES 2023 473 [facility] COAL TAR 1% SHAMPOO SHAMPOO MODERATE AMOUNT TOPICALL Y TWICE A WEEK NEEDED FOR SEBORRHE IC DERMATIT IS TOPICA L DISCONT INUED BY PROVIDE R 06/21/2025 [id number] 4 Blaine GRAF 2023 360 [place] COAL TAR 2% SHAMPOO SHAMPOO SUFFICIE NT AMOUNT TOPICALL Y TWICE A WEEK NEEDED FOR SEBORRHE IC DERMATIT IS TOPICA L ACTIVE 09/18/2025 [id number] 5 Blaine GRAF 2024 480 [place] COAL TAR 2% SHAMPOO SHAMPOO SUFFICIE NT AMOUNT TOPICALL Y TWICE A WEEK NEEDED FOR SEBORRHE IC DERMATIT IS TOPICA L DISCONT INUED 06/28/2025 [id number] Blaine GRAF 2023 480 [place] GLYCERIN (ADULT) SUPP,RTL INSERT 1 SUPPOSIT ORY RECTALLY ONCE DAILY FOR CONSTIPA TION RECTAL ACTIVE 10/24/2025 [id number] 5 PRIYANKA GUEVARA 2024 100 [place] HYDROCODONE 5MG/ACETAMI NOPHEN 325MG TAB TAKE 1 TABLET BY MOUTH EVERY 6 HOURS NEEDED FOR PAIN ORAL DISCONT INUED BY PROVIDE R 08/16/2024 [id number] 4 JOSHUA MORALES 2023 10 [facility] IBUPROFEN 600MG TAB TAKE ONE TABLET BY MOUTH EVERY 8 HOURS NEEDED FOR PAIN TAKE WITH FOOD ORAL DISCONT INUED BY PROVIDE R 08/16/2024 [id number] 4 Blaine GRAF 2023 90 [place] METOPROLOL SUCCINATE 50MG TAB,SA TAKE ONE TABLET BY MOUTH ONCE DAILY FOR BLOOD PRESSURE /HEART ORAL ACTIVE 09/18/2025 [id number] 5 Blaine GRAF 2024 90 [place] METOPROLOL SUCCINATE 50MG TAB,SA TAKE ONE TABLET BY MOUTH ONCE DAILY FOR BLOOD PRESSURE /HEART ORAL DISCONT INUED 08/25/2025 [id number] 5 Blaine GRAF 2024 90 [place] METOPROLOL SUCCINATE 50MG TAB,SA TAKE ONE TABLET BY MOUTH ONCE DAILY FOR BLOOD PRESSURE /HEART ORAL DISCONT INUED 06/17/2024 [id number] 4 KAJAL WASHINGTON 2022 90 [facility] OMEPRAZOLE 20MG CAP,EC TAKE TWO CAPSULES BY MOUTH ONCE DAILY ORAL ACTIVE 10/30/2025 [id number] 5 ADRI LLOYD YNA 2024 180 [place] OMEPRAZOLE 20MG CAP,EC TAKE TWO CAPSULES BY MOUTH ONCE DAILY ORAL DISCONT INUED 06/09/2025 [id number] ADRI LLOYD YNA 2023 180 [facility] OXYBUTYNIN CL 10MG TAB,SA TAKE ONE TABLET BY MOUTH ONCE DAILY FOR BLADDER INSTABIL ITY ORAL ACTIVE 09/18/2025 [id number] 5 Blaine GRAF 2024 90 [place] OXYBUTYNIN CL 10MG TAB,SA TAKE ONE TABLET BY MOUTH ONCE DAILY FOR BLADDER INSTABIL ITY ORAL DISCONT INUED 07/22/2025 [id number] 4 Blaine GRAF 2023 90 [place] OXYBUTYNIN CL 10MG TAB,SA TAKE ONE TABLET BY MOUTH ONCE DAILY FOR BLADDER INSTABIL ITY ORAL DISCONT INUED 04/29/2024 [id number] AARON MATTHEWS 2022 90 [place] PANTOPRAZOL E NA 20MG TAB,EC TAKE ONE TABLET BY MOUTH EVERY MORNING 30 MINUTES BEFORE BREAKFAS T ORAL DISCONT INUED BY TARAN Giles 04/29/2024 [id number] CASSIEAARON DM 2022 90 [facility] IELD PSYLLIUM PWDR,ORAL TAKE 1 TABLESPO ONFUL BY MOUTH ONCE DAILY (MIX WITH AT LEAST 8OZ. OF WATER OR OTHER FLUID) ORAL ACTIVE 10/30/2025 [id number] 5 ADRI LLOYD YNA 2024 780 [facility] IELD PSYLLIUM PWDR,ORAL TAKE 1 TABLESPO ONFUL BY MOUTH ONCE DAILY (MIX WITH AT LEAST 8OZ. OF WATER OR OTHER FLUID) ORAL DISCONT INUED 06/21/2025 [id number] 4 Blaine GRAF 2023 780 [facility] IELD PSYLLIUM PWDR,ORAL TAKE 1 TABLESPO ONFUL BY MOUTH ONCE DAILY (MIX WITH AT LEAST 8OZ. OF WATER OR OTHER FLUID) ORAL DISCONT INUED 06/13/2025 [id number] ADRI LLOYD YNA 2023 780 [facility] SILDENAFIL CITRATE 100MG TAB TAKE ONE TABLET BY MOUTH ONCE DAILY NEEDED TAKE 1 HOUR PRIOR TO SEXUAL ACTIVITY ORAL ACTIVE 09/18/2025 [id number] 5 Blaine GRAF 2024 18 [facility] IELD SILDENAFIL CITRATE 100MG TAB TAKE ONE TABLET BY MOUTH ONCE DAILY NEEDED TAKE 1 HOUR PRIOR TO SEXUAL ACTIVITY ORAL DISCONT INUED 06/23/2025 [id number] 4 Blaine GRAF 2023 18 [facility] IELD SILDENAFIL CITRATE 100MG TAB TAKE ONE TABLET BY MOUTH ONCE DAILY NEEDED TAKE 1 HOUR PRIOR TO SEXUAL ACTIVITY ORAL DISCONT INUED 07/31/2024 [id number] 4 DARRELL LAMBERT 2023 18 [facility] IELD SILDENAFIL CITRATE 100MG TAB TAKE ONE TABLET BY MOUTH ONCE DAILY NEEDED TAKE 1 HOUR PRIOR TO SEXUAL ACTIVITY ORAL DISCONT INUED 03/08/2025 [id number] 4 DARRELL LAMBERT F 2023 6 [facility] IELD SILDENAFIL CITRATE 100MG TAB TAKE ONE TABLET BY MOUTH ONCE DAILY NEEDED TAKE 1 HOUR PRIOR TO SEXUAL ACTIVITY ORAL DISCONT INUED 07/27/2024 [id number] AARON MATTHEWS 2022 6 [facility] IELD SODIUM FLUORIDE 1.1% TOOTHPASTE BRUSH SMALL AMOUNT TO TEETH TWICE DAILY FOR TOOTH DECAY PREVENTI ON DENTAL 07/21/2024 [id number] TE CARTER 2022 204 [facility] TRANEXAMIC ACID 650MG TAB TAKE ONE TABLET BY MOUTH TWICE DAILY FOR 7 DAYS ORAL 11/28/2024 [id number] 5 CHIQIUTA ALBA 2024 14 [facility] IE Immunizations Combined list of available immunizations from the Department of Defense and Veterans Affairs facilities. Immunization Series Date Given Administered By Site Reaction Lot Number CVX Code Drug Resident Care Aide Status Comments Source COVID-19 (MODERNA), MRNA, LNP-S, PF, 50 MCG/0.5 ML (AGES 12+ YEARS) 2023 BANDAR MORALES RIGHT DELTO ID [id number] 312 complet ed [facility] INFLUENZA, HIGH-DOSE, TRIVALENT, PF 2023 BANDAR MORALES LEFT DELTO ID [id number] 135 complet ed [facility] I[facility] INFLUENZA, HIGH-DOSE, QUADRIVALENT 2022 FAYE HAQ SA LEFT DELTO ID [id number] 197 complet ed Completed Series, [facility] INFLUENZA VACCINE, QUADRIVALENT, ADJUVANTED 2021 205 complet ed [facility] IELD COVID-19 (MODERNA), MRNA, LNP-S, PF, 100 MCG OR 50 MCG DOSE 3 2020 207 complet ed MOD; [id number]; 2 [facility] IELD INFLUENZA VACCINE, QUADRIVALENT, ADJUVANTED 2020 205 complet ed [facility] ZOSTER RECOMBINANT 2 2020 187 complet ed [place] COVID-19 (MODERNA), MRNA, LNP-S, PF, 100 MCG/0.5 ML DOSE 2 2020 207 complet ed MOD; [id number]; 1 [place] COVID-19 (MODERNA), MRNA, LNP-S, PF, 100 MCG/0.5 ML DOSE 1 2020 207 complet ed MOD; [id number]; 1 [place] INFLUENZA, INJECTABLE, QUADRIVALENT, PRESERVATIVE [...] Reference Range Date Interpretation Specimen Comments Source PSA PROSTATE SPECIFIC AG [MASS/VOLUM E] IN SERUM OR PLASMA BY IMMUNOASSAY 0.32 ng/mL 0.00 - 4.00 11/09 Specimen Type: SERUM No comment entered. Ordering Provider: TRUDY GUEVARA Report Released Date/Time: Nov 04, 2024 12:00 PM Reporting Lab: [address] [address] Performing Lab: [address] [address] [place] VITAMIN D (25-OH) 25-HYDROXYV ITAMIN D3+25-HYDRO XYVITAMIN D2 [MASS/VOLUM E] IN SERUM OR PLASMA 16 ng/mL 20 - 50 11/09 L Specimen Type: SERUM No comment entered. Ordering Provider: TRUDY GUEVARA Report Released Date/Time: Nov 04, 2024 12:00 PM Reporting Lab: [address] [address] Performing Lab: [address] [address] [place] LIPID PANEL FASTING CHOLESTEROL [MASS/VOLUM E] IN SERUM OR PLASMA 205 mg/dL 11/09 H Specimen Type: SERUM No comment entered. Ordering Provider: TRUDY GUEVARA Report Released Date/Time: Nov 04, 2024 12:00 PM Reporting Lab: [address] [address] Performing Lab: [address] [address] [place] LIPID PANEL FASTING TRIGLYCERID E [MASS/VOLUM E] IN SERUM OR PLASMA 175 mg/dL 0 - 150 11/09 H Specimen Type: SERUM No comment entered. Ordering Provider: TRUDY GUEVARA Report Released Date/Time: Nov 04, 2024 12:00 PM Reporting Lab: [facility] [address] [address] Performing Lab: [facility] [address] [address] [place] LIPID PANEL FASTING CHOLESTEROL IN LDL [MASS/VOLUM E] IN SERUM OR PLASMA BY CALCULATION 141 mg/dL 0 - 129 11/09 H Specimen Type: SERUM No comment entered. Ordering Provider: TRUDY GUEVARA Report Released Date/Time: Nov 04, 2024 12:00 PM Reporting Lab: [address] [address] Performing Lab: [address] [address] [place] LIPID PANEL FASTING CHOLESTEROL .TOTAL/CHOL ESTEROL IN HDL [MASS RATIO] IN SERUM OR PLASMA 7.1 11/09 Specimen Type: SERUM No comment entered. Ordering Provider: TRUDY GUEVARA Report Released Date/Time: Nov 04, 2024 12:00 PM Reporting Lab: [address] [address] Performing Lab: [facility] [address] [address] [place] LIPID PANEL FASTING CHOLESTEROL IN HDL [MASS/VOLUM E] IN SERUM OR PLASMA 29 mg/dL 40 - 60 11/09 L Specimen Type: SERUM No comment entered. Ordering Provider: TRUDY GUEVARA Report Released Date/Time: Nov 04, 2024 12:00 PM Reporting Lab: [address] [address] Performing Lab: [facility] [address] [address] [place] BASIC METABOLIC PANEL (non-fast ing) UREA NITROGEN [MASS/VOLUM E] IN SERUM OR PLASMA 20 mg/dL 7 - 25 11/09 Specimen Type: SERUM No comment entered. Ordering Provider: TRUDY GUEVARA Report Released Date/Time: Nov 04, 2024 12:00 PM Reporting Lab: [facility] [address] [address] Performing Lab: [facility] [address] [address] [place] BASIC METABOLIC PANEL (non-fast ing) GLUCOSE [MASS/VOLUM E] IN SERUM OR PLASMA 87 mg/dL 65 - 100 11/09 Specimen Type: SERUM No comment entered. Ordering Provider: TRUDY GUEVARA Report Released Date/Time: Nov 04, 2024 12:00 PM Reporting Lab: [address] [address] Performing Lab: [address] [address] [place] BASIC METABOLIC PANEL (non-fast ing) SODIUM [MOLES/VOLU ME] IN SERUM OR PLASMA 138 mmol/L 135 - 145 11/09 Specimen Type: SERUM No comment entered. Ordering Provider: TRUDY GUEVARA Report Released Date/Time: Nov 04, 2024 12:00 PM Reporting Lab: [facility] [address] [address] Performing Lab: [address] [address] [place] BASIC METABOLIC PANEL (non-fast ing) POTASSIUM [MOLES/VOLU ME] IN SERUM OR PLASMA 4.6 mmol/L 3.5 - 5.0 11/09 Specimen Type: SERUM No comment entered. Ordering Provider: TRUDY GUEVARA Report Released Date/Time: Nov 04, 2024 12:00 PM Reporting Lab: [facility] [address] [address] Performing Lab: [address] [address] [place] BASIC METABOLIC PANEL (non-fast ing) CHLORIDE [MOLES/VOLU ME] IN SERUM OR PLASMA 109 mmol/L 100 - 110 11/09 Specimen Type: SERUM No comment entered. Ordering Provider: TRUDY GUEVARA Report Released Date/Time: Nov 04, 2024 12:00 PM Reporting Lab: [facility] [address] [address] Performing Lab: [address] [address] [place] BASIC METABOLIC PANEL (non-fast ing) CARBON DIOXIDE, TOTAL [MOLES/VOLU ME] IN SERUM OR PLASMA 20 meq/L 20 - 30 11/09 Specimen Type: SERUM No comment entered. Ordering Provider: TRUDY GUEVARA Report Released Date/Time: Nov 04, 2024 12:00 PM Reporting Lab: [facility] [address] [address] Performing Lab: [address] [address] [place] BASIC METABOLIC PANEL (non-fast ing) CALCIUM [MASS/VOLUM E] IN SERUM OR PLASMA 8.9 mg/dL 8.5 - 10.2 11/09 Specimen Type: SERUM No comment entered. Ordering Provider: TRUDY GUEVARA Report Released Date/Time: Nov 04, 2024 12:00 PM Reporting Lab: [facility] [address] [address] Performing Lab: [facility] [address] [address] [place] BASIC METABOLIC PANEL (non-fast ing) CREATININE [MASS/VOLUM E] IN SERUM OR PLASMA 1.28 mg/dL 0.50 - 1.40 11/09 Specimen Type: SERUM No comment entered. Ordering Provider: TRUDY GUEVARA Report Released Date/Time: Nov 04, 2024 12:00 PM Reporting Lab: [facility] [address] [address] Performing Lab: [address] [address] [place] BASIC METABOLIC PANEL (non-fast ing) GLOMERULAR FILTRATION RATE/1.73 SQ M.PREDICTED [VOLUME RATE/AREA] IN SERUM, PLASMA OR BLOOD BY CREATININE- BASED FORMULA (CKD-EPI 2020) 58 mL/min 60 11/09 L Specimen Type: SERUM No comment entered. Ordering Provider: TRUDY GUEVARA Report Released Date/Time: Nov 04, 2024 12:00 PM Reporting Lab: [facility] [address] Performing Lab: [facility] [address] [address] [place] CBC AND DIFF (AUTO) LEUKOCYTES [#/VOLUME] IN BLOOD BY AUTOMATED COUNT 3.10 10*3/u L 4.50 - 11.00 11/09 L Specimen Type: BLOOD No comment entered. Ordering Provider: TRUDY GUEVARA Report Released Date/Time: Nov 04, 2024 12:00 PM Reporting Lab: [facility] [address] Performing Lab: [facility] [address] [place] CBC AND DIFF (AUTO) ERYTHROCYTE S [#/VOLUME] IN BLOOD BY AUTOMATED COUNT 4.05 10*6/u L 4.23 - 5.66 11/09 L Specimen Type: BLOOD No comment entered. Ordering Provider: TRUDY GUEVARA Report Released Date/Time: Nov 04, 2024 12:00 PM Reporting Lab: [facility] [address] [address] Performing Lab: [facility] [address] [place] CBC AND DIFF (AUTO) HEMOGLOBIN [MASS/VOLUM E] IN BLOOD 12.9 g/dL 12.8 - 17 11/09 Specimen Type: BLOOD No comment entered. Ordering Provider: TRUDY GUEVARA Report Released Date/Time: Nov 04, 2024 12:00 PM Reporting Lab: [facility] [address] Performing Lab: [facility]OMETRN [facility]ITALUSETS [facility] [address] [address] [place] CBC AND DIFF (AUTO) HEMATOCRIT [VOLUME FRACTION] OF BLOOD BY AUTOMATED COUNT 37.6 39.2 - 50.4 11/09 L Specimen Type: BLOOD No comment entered. Ordering Provider: TRUDY GUEVARA Report Released Date/Time: Nov 04, 2024 12:00 PM Reporting Lab: [facility]UR[facility] HOM[facility]RN [facility] [address] [address] Performing Lab: [facility]ITAL[facility]N [facility] [address] [place] CBC AND DIFF (AUTO) MCV [ENTITIC VOLUME] BY AUTOMATED COUNT 92.8 fL 82 - 99 11/09 Specimen Type: BLOOD No comment entered. Ordering Provider: TRUDY GUEVARA Report Released Date/Time: Nov 04, 2024 12:00 PM Reporting Lab: [facility] [address] [address] Performing Lab: [facility] [address] [place] CBC AND DIFF (AUTO) MCHC [MASS/VOLUM E] BY AUTOMATED COUNT 34.3 g/dL 30.8 - 35.1 11/09 Specimen Type: BLOOD No comment entered. Ordering Provider: TRUDY GUEVARA Report Released Date/Time: Nov 04, 2024 12:00 PM Reporting Lab: [facility] [address] Performing Lab: [facility] [address] [place] CBC AND DIFF (AUTO) PLATELETS [#/VOLUME] IN BLOOD BY AUTOMATED COUNT 184 10*3/u L 140 - 360 11/09 Specimen Type: BLOOD No comment entered. Ordering Provider: TRUDY GUEVARA Report Released Date/Time: Nov 04, 2024 12:00 PM Reporting Lab: [facility] [address] [address] Performing Lab: [facility] [place] [facility] [address] [facility] [address] [place] CBC AND DIFF (AUTO) PLATELET MEAN VOLUME [ENTITIC VOLUME] IN BLOOD BY AUTOMATED COUNT 11.2 fL 9.2 - 12.4 11/09 Specimen Type: BLOOD No comment entered. Ordering Provider: TRUDY GUEVARA Report Released Date/Time: Nov 04, 2024 12:00 PM Reporting Lab: [facility] [place] [address] [address] Performing Lab: [facility] [place] [address] [address] [place] CBC AND DIFF (AUTO) ERYTHROCYTE DISTRIBUTIO N WIDTH [RATIO] BY AUTOMATED COUNT 14.7 12.0 - 16.0 11/09 Specimen Type: BLOOD No comment entered. Ordering Provider: TRUDY GUEVARA Report Released Date/Time: Nov 04, 2024 12:00 PM Reporting Lab: [facility] [place] [address] [address] Performing Lab: [facility]ITALRC[facility]OM[facility]RN [place] [address] [address] [place] CBC AND DIFF (AUTO) MONOCYTES [#/VOLUME] IN BLOOD BY AUTOMATED COUNT 0.42 10*3/u L 0.30 - 1.10 11/09 Specimen Type: BLOOD No comment entered. Ordering Provider: TRUDY GUEVARA Report Released Date/Time: Nov 04, 2024 12:00 PM Reporting Lab: [facility] [place] [address] [address] Performing Lab: [facility]RC[facility] HOMETRN [place] [address] [address] [place] CBC AND DIFF (AUTO) MCH [ENTITIC MASS] BY AUTOMATED COUNT 31.9 pg 26.2 - 32.6 11/09 Specimen Type: BLOOD No comment entered. Ordering Provider: TRUDY GUEVARA Report Released Date/Time: Nov 04, 2024 12:00 PM Reporting Lab: [facility]RN [place] [address] [address] Performing Lab: [facility] [place] [facility] [address] [facility] [facility] [address] [place] CBC AND DIFF (AUTO) NEUTROPHILS /100 LEUKOCYTES IN BLOOD BY AUTOMATED COUNT 50.4 43.7 - 75.8 11/09 Specimen Type: BLOOD No comment entered. Ordering Provider: TRUDY GUEVARA Report Released Date/Time: Nov 04, 2024 12:00 PM Reporting Lab: [facility] [place] [address] [address] Performing Lab: [facility] [place] [address] [address] [place] CBC AND DIFF (AUTO) LYMPHOCYTES /100 LEUKOCYTES IN BLOOD BY AUTOMATED COUNT 29.4 14.0 - 42.3 11/09 Specimen Type: BLOOD No comment entered. Ordering Provider: TRUDY GUEVARA Report Released Date/Time: Nov 04, 2024 12:00 PM Reporting Lab: [facility] [place] [address] [address] Performing Lab: [facility] [place] [address] [address] [place] CBC AND DIFF (AUTO) MONOCYTES/1 00 LEUKOCYTES IN BLOOD BY AUTOMATED COUNT 13.5 5.1 - 13.7 11/09 Specimen Type: BLOOD No comment entered. Ordering Provider: TRUDY GUEVARA Report Released Date/Time: Nov 04, 2024 12:00 PM Reporting Lab: [facility] [place] [address] [address] Performing Lab: [facility] [address] [address] [place] CBC AND DIFF (AUTO) EOSINOPHILS /100 LEUKOCYTES IN BLOOD BY AUTOMATED COUNT 5.8 0.4 - 6.8 11/09 Specimen Type: BLOOD No comment entered. Ordering Provider: TRUDY GUEVARA Report Released Date/Time: Nov 04, 2024 12:00 PM Reporting Lab: [facility] [address] [address] Performing Lab: [facility] [address] [facility] [facility] [address] [place] CBC AND DIFF (AUTO) BASOPHILS/1 00 LEUKOCYTES IN BLOOD BY AUTOMATED COUNT 0.6 0.1 - 2.0 11/09 Specimen Type: BLOOD No comment entered. Ordering Provider: TRUDY GUEVARA Report Released Date/Time: Nov 04, 2024 12:00 PM Reporting Lab: [facility]ITALRCLE[facility] HOMETRN [facility]US[facility] [address] [address] Performing Lab: [facility] [address] [address] [place] CBC AND DIFF (AUTO) NEUTROPHILS [#/VOLUME] IN BLOOD BY AUTOMATED COUNT 1.56 10*3/u L 2.20 - 7.60 11/09 L Specimen Type: BLOOD No comment entered. Ordering Provider: TRDUY GUEVARA Report Released Date/Time: Nov 04, 2024 12:00 PM Reporting Lab: [facility]RL [facility] [address] [address] Performing Lab: [facility]ITALRL [facility]N [facility] [address] [address] [place] CBC AND DIFF (AUTO) LYMPHOCYTES [#/VOLUME] IN BLOOD BY AUTOMATED COUNT 0.91 10*3/u L 1.00 - 3.20 11/09 L Specimen Type: BLOOD No comment entered. Ordering Provider: TRUDY GUEVARA Report Released Date/Time: Nov 04, 2024 12:00 PM Reporting Lab: [facility]RL [facility] [address] [address] Performing Lab: [facility]ITALRCLE[facility]OMETRN [facility]ITALUS[facility] [address] [address] [place] CBC AND DIFF (AUTO) EOSINOPHILS [#/VOLUME] IN BLOOD BY AUTOMATED COUNT 0.18 10*3/u L 0.03 - 0.44 11/09 Specimen Type: BLOOD No comment entered. Ordering Provider: TRUDY GUEVARA Report Released Date/Time: Nov 04, 2024 12:00 PM Reporting Lab: [facility] [address] [address] Performing Lab: [facility] [address] [address] [place] CBC AND DIFF (AUTO) BASOPHILS [#/VOLUME] IN BLOOD BY AUTOMATED COUNT 0.02 10*3/u L 0.01 - 0.13 11/09 Specimen Type: BLOOD No comment entered. Ordering Provider: TRUDY GUEVARA Report Released Date/Time: Nov 04, 2024 12:00 PM Reporting Lab: [facility]RL [facility] [address] [address] Performing Lab: [facility]ITALRCLEBUR[facility] AND NURSING HOMETRN [facility]ITALUSE[address] [address] [place] CBC AND DIFF (AUTO) IMMATURE GRANULOCYTE S/100 LEUKOCYTES IN BLOOD BY AUTOMATED COUNT 0.3 0.0 - 0.7 11/09 Specimen Type: BLOOD No comment entered. Ordering Provider: TRUDY GUEVARA Report Released Date/Time: Nov 04, 2024 12:00 PM Reporting Lab: [facility]ITALRCLE[facility] HOMETRN [facility]USE[address] [address] Performing Lab: [facility]ITALRCLE[facility]UR[facility] HOMETRN [facility]ITALUS[facility] [address] [address] [place] CBC AND DIFF (AUTO) IMMATURE GRANULOCYTE S [#/VOLUME] IN BLOOD BY AUTOMATED COUNT 0.01 10*3/u L 0.00 - 0.06 11/09 Specimen Type: BLOOD No comment entered. Ordering Provider: TRUDY GUEVARA Report Released Date/Time: Nov 04, 2024 12:00 PM Reporting Lab: [facility]ITALRCLE[facility] NUR[facility] HOMETRN [facility]ITALUSETS [address] [address] Performing Lab: [facility]ITALRCLE[facility] NUR[facility] HOMETRN [facility]USE[address] [address] [place] CBC AND DIFF (AUTO) NUCLEATED ERYTHROCYTE S/100 LEUKOCYTES [RATIO] IN BLOOD BY AUTOMATED COUNT 0.0 0.0 - 0.0 11/09 Specimen Type: BLOOD No comment entered. Ordering Provider: TRUDY GUEVARA Report Released Date/Time: Nov 04, 2024 12:00 PM Reporting Lab: [facility]ITALRL TRN [facility] [address] [address] Performing Lab: [facility]ITALRCLE[facility] AND NURSING HOMETRN [facility] [address] [address] [place] CBC AND DIFF (AUTO) NUCLEATED ERYTHROCYTE S [#/VOLUME] IN BLOOD BY AUTOMATED COUNT 0.00 10*3/u L 0.00 - 0.00 11/09 Specimen Type: BLOOD No comment entered. Ordering Provider: TRUDY GUEVARA Report Released Date/Time: Nov 04, 2024 12:00 PM Reporting Lab: [facility]ITALRHUNTSV[facility] SYSTEMN [address] [address] Performing Lab: [facility] [address] [address] [place], [place] [address] MICROSCOP IC AUTOMATED , URINE LEUKOCYTES [#/AREA] IN URINE SEDIMENT BY MICROSCOPY HIGH POWER FIELD 0-5/[H PF] 0 - 5 10/30 Specimen Type: URINE Comment: If Glucose = >500 and Ketones are positive, please alert the Physician. Ordering Provider: NUBIA EVANS NP Report Released Date/Time: Oct 15, 2024 11:36 AM Reporting Lab: [facility]ITALRCLE[facility] N[facility] HOMETRN [address] [address] Performing Lab: [facility]ITALRCLE[facility] HOMETRN [address] [address] [facility]ITALN [facility] MICROSCOP IC AUTOMATED , URINE BACTERIA [#/AREA] IN URINE SEDIMENT BY MICROSCOPY HIGH POWER FIELD 1+/[HP F] 10/30 Specimen Type: URINE Comment: If Glucose = >500 and Ketones are positive, please alert the Physician. Ordering Provider: NUBIA EVANS NP Report Released Date/Time: Oct 15, 2024 11:36 AM Reporting Lab: [facility]ITALRL TRN [facility]USE[address] [address] Performing Lab: [facility]ITALRL TRN [address] [address] [facility]ITALRCLEBUR[facility] NURSING HOMETRN [facility]PITALUSE [facility] MICROSCOP IC AUTOMATED , URINE ERYTHROCYTE S [#/AREA] IN URINE SEDIMENT BY MICROSCOPY HIGH POWER FIELD TNTC/[ HPF] 0 - 3 10/30 Specimen Type: URINE Comment: If Glucose = >500 and Ketones are positive, please alert the Physician. Ordering Provider: NUBIA EVANS NP Report Released Date/Time: Oct 15, 2024 11:36 AM Reporting Lab: [facility] [place] [address] [address] Performing Lab: [facility] [place] [address] [address] [facility] [place] [place] [facility] URINALYSI S COLOR OF URINE Dark-B rown 10/30 Specimen Type: URINE Comment: If Glucose = >500 and Ketones are positive, please alert the Physician. Ordering Provider: NUBIA EVANS NP Report Released Date/Time: Oct 15, 2024 11:36 AM Reporting Lab: [facility]RL [facility] [place] [address] [address] Performing Lab: [facility] [place] [address] [address] [facility]RL [facility] [place] [facility] URINALYSI S APPEARANCE OF URINE Ex.Tur bid 10/30 Specimen Type: URINE Comment: If Glucose = >500 and Ketones are positive, please alert the Physician. Ordering Provider: NUBIA EVANS NP Report Released Date/Time: Oct 15, 2024 11:36 AM Reporting Lab: [facility]RL [facility] [place] [address] [address] Performing Lab: [facility] [place] [address] [address] [facility]RL [facility] [place] [facility] URINALYSI S GLUCOSE [MASS/VOLUM E] IN URINE Normal mg/dL 10/30 Specimen Type: URINE Comment: If Glucose = >500 and Ketones are positive, please alert the Physician. Ordering Provider: NUBIA EVANS NP Report Released Date/Time: Oct 15, 2024 11:36 AM Reporting Lab: [facility]RL [facility] [place] [address] [address] Performing Lab: [facility] [place] [place] [facility] [address] [address] [facility]OSPITALRHUNTSVILLE HOSP[facility] SYSTEMN [facility] HOSPITALCHUSE [facility] URINALYSI S KETONES [MASS/VOLUM E] IN URINE BY TEST STRIP NEGATI VEmg/d L 10/30 Specimen Type: URINE Comment: If Glucose = >500 and Ketones are positive, please alert the Physician. Ordering Provider: NUBIA EVANS NP Report Released Date/Time: Oct 15, 2024 11:36 AM Reporting Lab: [facility]PITALRHUNTSVILLE HOSPITAL SYSTEMN [facility]ITALUSERICH[facility] [address] [address] Performing Lab: [facility]ITALN [facility]ITALUSE[address] [address] [facility]ITALN [facility]OSPITALUSE [facility] URINALYSI S ERYTHROCYTE S [PRESENCE] IN URINE SEDIMENT BY LIGHT MICROSCOPY LARGEm g/dL 10/30 Specimen Type: URINE Comment: If Glucose = >500 and Ketones are positive, please alert the Physician. Ordering Provider: NUBIA EVANS NP Report Released Date/Time: Oct 15, 2024 11:36 AM Reporting Lab: [facility]ITALN [facility]ITALUSE[address] [address] Performing Lab: [facility]ITALN [facility]USE[address] [address] [facility]ITALN [facility]OSPITALUSE [facility] URINALYSI S PROTEIN [MASS/VOLUM E] IN URINE BY TEST STRIP 100 mg/dL 10/30 Specimen Type: URINE Comment: If Glucose = >500 and Ketones are positive, please alert the Physician. Ordering Provider: NUBIA EVANS NP Report Released Date/Time: Oct 15, 2024 11:36 AM Reporting Lab: [facility]ITALN [facility]ITALUSE[address] [address] Performing Lab: [facility]ITALN [facility]USE[address] [address] [facility]ITALN [facility]OSPITALUSE [facility] URINALYSI S NITRITE [PRESENCE] IN URINE NEGATI VEmg/d L 10/30 Specimen Type: URINE Comment: If Glucose = >500 and Ketones are positive, please alert the Physician. Ordering Provider: NUBIA EVANS NP Report Released Date/Time: Oct 15, 2024 11:36 AM Reporting Lab: [facility] [place] [facility] [address] [facility] [address] Performing Lab: [facility] [place] [facility] [address] [facility] [address] [facility] [place] [place] [facility] URINALYSI S BILIRUBIN.T OTAL [PRESENCE] IN URINE NEGATI VEmg/d L 10/30 Specimen Type: URINE Comment: If Glucose = >500 and Ketones are positive, please alert the Physician. Ordering Provider: NUBIA EVANS NP Report Released Date/Time: Oct 15, 2024 11:36 AM Reporting Lab: [facility] [place] [facility] [address] [facility] [address] Performing Lab: [facility] [place] [address] [address] [facility] [place] [facility] URINALYSI S SPECIFIC GRAVITY OF URINE BY REFRACTOMET RY 1.023 1.016 - 1.022 10/30 H Specimen Type: URINE Comment: If Glucose = >500 and Ketones are positive, please alert the Physician. Ordering Provider: NUBIA EVANS NP Report Released Date/Time: Oct 15, 2024 11:36 AM Reporting Lab: [facility] [place] [facility] [address] [facility] [address] Performing Lab: [facility] [place] [facility] [address] [facility] [address] [facility] [place] [facility] URINALYSI S PH OF URINE BY TEST STRIP 5.5 5.0 - 9.0 10/30 Specimen Type: URINE Comment: If Glucose = >500 and Ketones are positive, please alert the Physician. Ordering Provider: NUBIA EVANS NP Report Released Date/Time: Oct 15, 2024 11:36 AM Reporting Lab: [facility] [place] [address] [address] Performing Lab: [facility] [address] [address] [facility]ITALN [facility]PITALCHUSE [facility] URINALYSI S UROBILINOGE N [MASS/VOLUM E] IN URINE BY TEST STRIP Normal mg/dL <2.0 - 2.0 10/30 Specimen Type: URINE Comment: If Glucose = >500 and Ketones are positive, please alert the Physician. Ordering Provider: NUBIA EVANS NP Report Released Date/Time: Oct 15, 2024 11:36 AM Reporting Lab: [facility]ITALRCLE[facility] AND NURSING HOMETRN [facility]ITALUSE[address] [address] Performing Lab: [facility]ITALRHUNTSVIL[facility]OSP[facility] SYSTEMN [facility]ITALUSE[address] [address] [facility]ITALN [facility]OSPITALUSE [facility] URINALYSI S LEUKOCYTE ESTERASE [PRESENCE] IN URINE BY TEST STRIP TRACE 10/30 Specimen Type: URINE Comment: If Glucose = >500 and Ketones are positive, please alert the Physician. Ordering Provider: NUBIA EVANS NP Report Released Date/Time: Oct 15, 2024 11:36 AM Reporting Lab: [facility]ITALRHUNTSVIL[facility]OSP[facility] SYSTEMN [facility]ITALUSE[address] [address] Performing Lab: [facility]ITALRHUNTSV[facility] SYSTEMN [facility]ITALUSE[address] [address] [facility]ITALN [facility]OSPITALUSE [facility] BASIC METABOLIC PANEL (fasting) UREA NITROGEN [MASS/VOLUM E] IN SERUM OR PLASMA 24 mg/dL 7 - 25 09/04 Specimen Type: SERUM No comment entered. Ordering Provider: YON GRAF Report Released Date/Time: Jun 13, 2024 03:11 PM Reporting Lab: [facility]ITALRHUNTSVIL[facility]OSP[facility] SYSTEMN [facility]ITALUSE[address] [address] Performing Lab: [facility]ITALN [facility]ITALUSE[address] [address] [facility] BASIC METABOLIC PANEL (fasting) GLUCOSE [MASS/VOLUM E] IN SERUM OR PLASMA 86 mg/dL 65 - 100 09/04 Specimen Type: SERUM No comment entered. Ordering Provider: YON GRAF Report Released Date/Time: Jun 13, 2024 03:11 PM Reporting Lab: [facility]ITALRHUNTSV[facility]OSP[facility] SYSTEMN [facility] [address] Performing Lab: [facility]ITALRHUNTSVIL[facility]OSP[facility] SYSTEMN [address] [address] [place] BASIC METABOLIC PANEL (fasting) SODIUM [MOLES/VOLU ME] IN SERUM OR PLASMA 138 mmol/L 135 - 145 09/04 Specimen Type: SERUM No comment entered. Ordering Provider: YON GRAF Report Released Date/Time: Jun 13, 2024 03:11 PM Reporting Lab: [facility]ITALRHUNTSV[facility] SYSTEMN [address] [address] Performing Lab: [facility]ITALRHUNTSV[facility] SYSTEMN [address] [address] [place] BASIC METABOLIC PANEL (fasting) POTASSIUM [MOLES/VOLU ME] IN SERUM OR PLASMA 4.9 mmol/L 3.5 - 5.0 09/04 Specimen Type: SERUM No comment entered. Ordering Provider: YON GRAF Report Released Date/Time: Jun 13, 2024 03:11 PM Reporting Lab: [facility]ITALRL TRN [address] [address] Performing Lab: [facility]ITALRHUN[facility] SYSTEMN [address] [address] [place] BASIC METABOLIC PANEL (fasting) CHLORIDE [MOLES/VOLU ME] IN SERUM OR PLASMA 105 mmol/L 100 - 110 09/04 Specimen Type: SERUM No comment entered. Ordering Provider: YON GRAF Report Released Date/Time: Jun 13, 2024 03:11 PM Reporting Lab: [facility]ITALRHUN[facility] SYSTEMN [address] [address] Performing Lab: [facility]ITALRHUN[facility] SYSTEMN [address] [address] [place] BASIC METABOLIC PANEL (fasting) CARBON DIOXIDE, TOTAL [MOLES/VOLU ME] IN SERUM OR PLASMA 23 meq/L 20 - 30 09/04 Specimen Type: SERUM No comment entered. Ordering Provider: YON GRAF Report Released Date/Time: Jun 13, 2024 03:11 PM Reporting Lab: [facility]ITALRHUN[facility] SYSTEMN [address] [place] [address] Performing Lab: [facility]ITALN [facility] [address] [facility] [facility] [address] [place] BASIC METABOLIC PANEL (fasting) CREATININE [MASS/VOLUM E] IN SERUM OR PLASMA 1.41 mg/dL 0.50 - 1.40 09/04 H Specimen Type: SERUM No comment entered. Ordering Provider: YON GRAF Report Released Date/Time: Jun 13, 2024 03:11 PM Reporting Lab: [facility]ITALRHUN[facility] SYSTEMN [address] [address] Performing Lab: [facility]N [address] [address] [place] BASIC METABOLIC PANEL (fasting) GLOMERULAR FILTRATION RATE/1.73 SQ M.PREDICTED [VOLUME RATE/AREA] IN SERUM, PLASMA OR BLOOD BY CREATININE- BASED FORMULA (CKD-EPI 2020) 52 mL/min 60 09/04 L Specimen Type: SERUM No comment entered. Ordering Provider: YON GRAF Report Released Date/Time: Jun 13, 2024 03:11 PM Reporting Lab: [facility]N [address] [address] Performing Lab: [facility]N [address] [address] [place] LIPID PANEL FASTING CHOLESTEROL [MASS/VOLUM E] IN SERUM OR PLASMA 272 mg/dL 09/04 H Specimen Type: SERUM No comment entered. Ordering Provider: YON GRAF Report Released Date/Time: Jun 13, 2024 03:11 PM Reporting Lab: [facility]N [address] [address] Performing Lab: [facility]N [address] [address] [place] LIPID PANEL FASTING TRIGLYCERID E [MASS/VOLUM E] IN SERUM OR PLASMA 188 mg/dL 0 - 150 09/04 H Specimen Type: SERUM No comment entered. Ordering Provider: YON GRAF Report Released Date/Time: Jun 13, 2024 03:11 PM Reporting Lab: [facility]ITALRHUN[facility] SYSTEMN [facility] [address] [facility] [facility] [address] Performing Lab: [facility]ITALRHUN[facility] SYSTEMN [address] [address] [place] LIPID PANEL FASTING CHOLESTEROL IN LDL [MASS/VOLUM E] IN SERUM OR PLASMA BY CALCULATION 202 mg/dL 0 - 129 09/04 H Specimen Type: SERUM No comment entered. Ordering Provider: YON GRAF Report Released Date/Time: Jun 13, 2024 03:11 PM Reporting Lab: [facility]RHUN[facility] SYSTEMN [address] [address] Performing Lab: [facility]N [address] [address] [place] LIPID PANEL FASTING CHOLESTEROL .TOTAL/CHOL ESTEROL IN HDL [MASS RATIO] IN SERUM OR PLASMA 8.5 09/04 Specimen Type: SERUM No comment entered. Ordering Provider: YON GRAF Report Released Date/Time: Jun 13, 2024 03:11 PM Reporting Lab: [facility]RHUN[facility] SYSTEMN [address] [address] Performing Lab: [facility] [address] [address] [place] LIPID PANEL FASTING CHOLESTEROL IN HDL [MASS/VOLUM E] IN SERUM OR PLASMA 32 mg/dL 40 - 60 09/04 L Specimen Type: SERUM No comment entered. Ordering Provider: YON GRAF Report Released Date/Time: Jun 13, 2024 03:11 PM Reporting Lab: [facility]RH[facility] SYSTEMN [address] [address] Performing Lab: [facility]N [address] [address] [place] LIVER FUNCTION PROTEIN [MASS/VOLUM E] IN SERUM OR PLASMA 7.5 g/dL 6.0 - 8.3 09/04 Specimen Type: SERUM No comment entered. Ordering Provider: YON GRAF Report Released Date/Time: Jun 13, 2024 03:11 PM Reporting Lab: [facility]RHUN[facility] SYSTEMN [address] [address] Performing Lab: [facility] [facility] [address] [facility] [address] [place] LIVER FUNCTION ALBUMIN [MASS/VOLUM E] IN SERUM OR PLASMA 4.0 g/dL 3.5 - 5.0 09/04 Specimen Type: SERUM No comment entered. Ordering Provider: YON GRAF Report Released Date/Time: Jun 13, 2024 03:11 PM Reporting Lab: [facility] [facility] [address] [facility] [address] Performing Lab: [facility] [place] [address] [address] [place] LIVER FUNCTION ALKALINE PHOSPHATASE [ENZYMATIC ACTIVITY/VO LUME] IN SERUM OR PLASMA 66 U/L 40 - 150 09/04 Specimen Type: SERUM No comment entered. Ordering Provider: YON GRAF Report Released Date/Time: Jun 13, 2024 03:11 PM Reporting Lab: [facility] [place] [address] [address] Performing Lab: [facility] [place] [address] [address] [place] LIVER FUNCTION ASPARTATE AMINOTRANSF ERASE [ENZYMATIC ACTIVITY/VO LUME] IN SERUM OR PLASMA 16 U/L 5 - 34 09/04 Specimen Type: SERUM No comment entered. Ordering Provider: YON GRAF Report Released Date/Time: Jun 13, 2024 03:11 PM Reporting Lab: [facility] [place] [address] [address] Performing Lab: [facility] [place] [address] [address] [place] LIVER FUNCTION ALANINE AMINOTRANSF ERASE [ENZYMATIC ACTIVITY/VO LUME] IN SERUM OR PLASMA 21 U/L 09/04 Specimen Type: SERUM No comment entered. Ordering Provider: YON GRAF Report Released Date/Time: Jun 13, 2024 03:11 PM Reporting Lab: [facility] [place] [address] [address] Performing Lab: [facility] [address] [address] [place] [facility] BILIRUBIN.T OTAL [MASS/VOLUM E] IN SERUM OR PLASMA 0.5 mg/dL 0.2 - 1.2 09/04 Specimen Type: SERUM No comment entered. Ordering Provider: YON GRAF Report Released Date/Time: Jun 13, 2024 03:11 PM Reporting Lab: [facility] [address] [phone] Performing Lab: [facility] [address] [address] [facility] Vital Signs Combined list of inpatient and outpatient Vital Signs from Department of Defense and [employer] Affairs, ranging from 12 months to all on record, depending upon the facility. Vital Sign Value Date Comments Source SYSTOLIC BLOOD PRESSURE 135 11/01/2024 15:12:04 [facility] DIASTOLIC BLOOD PRESSURE 76 11/01/2024 15:12:04 [facility] PULSE OXIMETRY 95 11/01/2024 15:12:04 [facility] 11/01/2024 15:12:04 [place] BMI 31 kg/m2 11/01/2024 15:12:04 [place] PULSE 75 11/01/2024 15:12:04 [facility] SYSTOLIC BLOOD PRESSURE 137 09/17/2024 10:02:17 [facility] DIASTOLIC BLOOD PRESSURE 83 09/17/2024 10:02:17 [facility] PULSE OXIMETRY 95 09/17/2024 10:02:17 [place] WEIGHT 228 09/17/2024 10:02:17 [place] BMI 32 kg/m2 09/17/2024 10:02:17 [place] HEIGHT 70.5 09/17/2024 10:02:17 [place] TEMPERATURE 97.8 09/17/2024 10:02:17 [place] PULSE 66 09/17/2024 10:02:17 [place] RESPIRATION 19 09/17/2024 10:02:17 [facility] SYSTOLIC BLOOD PRESSURE 137 06/20/2024 13:46:58 [facility] DIASTOLIC BLOOD PRESSURE 86 06/20/2024 13:46:58 [facility] PULSE OXIMETRY 96 06/20/2024 13:46:58 [place] WEIGHT 222 06/20/2024 13:46:58 [place] BMI 32 kg/m2 06/20/2024 13:46:58 [place] PULSE 65 06/20/2024 13:46:58 [place] SYSTOLIC BLOOD PRESSURE 142 03/09/2024 09:09:11 [facility] DIASTOLIC BLOOD PRESSURE 84 03/09/2024 09:09:11 [facility] PULSE OXIMETRY 95 03/09/2024 09:09:11 [place] PAIN 0 03/09/2024 09:09:11 [place] TEMPERATURE 97.8 03/09/2024 09:09:11 [place] PULSE 82 03/09/2024 09:09:11 [place] RESPIRATION 17 03/09/2024 09:09:11 [place] Encounters Combined list of: 1) Encounters from [facility] Affairs facilities going backup to the last 18 months, not all [place] inpatient encounters are included; 2) Encounters from the Department of [facility] facilities going backup to 280 months. Location Location Details Encounter Type Encounter Number Reason For Visit Attending Provider ADM Date DC Date Status Disposition Source [facility] Out[facility] Encounter [id number] 06/18 [facility] Outpatient Encounter [id number] Chandan ALDANA 06/18 [facility] Outpatient Encounter [id number] 06/20 [facility] Outpatient Encounter [id number] 06/20 [facility] Outpatient Encounter [id number] 06/21 [facility] Outpatient Encounter [id number] 06/22 [facility] Outpatient Encounter [id number] HUGO ARAUJO 06/22 [facility] Outpatient Encounter [id number] 06/23 [facility] Outpatient Encounter [id number] 06/25 [facility] Outpatient Encounter [id number] 07/01 [facility] Out[facility] Encounter [id number] 07/13 [facility] Outpatient Encounter [id number] 07/19 [facility] Outpatient Encounter [id number] 07/21 [facility] Outpatient [facility]counter [id number] 07/23 [facility] Outpatient Encounter [id number] 07/25 [facility] Outpatient [facility]counter [id number] 07/26 [facility] Outpatient Encounter [id number] 07/29 [facility] Out[facility] Encounter [id number] 08/03 [facility] EYE EXAM&TX ESTAB PT 1/>VST [id number] Diagnos is: ICD-10- CM H40.013 Open angle with borderl ine finding s, low risk, bilater al MERHAR,ESME H B 08/03 [facility] FIT SPECTACLES BIFOCAL [id number] Diagnos is: ICD-10- CM Z46.0 Encount er for fit/adj st of spectac les and contact lenses MERHAR,ESME H B 08/03 [facility] Outpatient Encounter [id number] 08/24 [facility] QNHP OL DIG ASSMT&MGMT 5-10 [id number] Diagnos is: ICD-10- CM Z04.89 Encount er for examina tion and observa tion for oth reasons KOURTNEY WILLIAM 08/25 [facility] Out[facility] Encounter [id number] 08/25 [facility] Outpatient Encounter [id number] 09/14 [facility] Outpatient Encounter [id number] 10/10 [facility] Outpatient Encounter [id number] [facility] EXTENSV ORAL EVAL PROB FOCUS [id number] Diagnos is: ICD-10- CM K03.81 Cracked tooth HALLEY MOYA 10/13 [facility] Out[facility] Encounter [id number] 10/16 [facility] Outpatient Encounter [id number] 10/20 [facility] Outpatient Encounter [id number] 12/12 [facility] Outpatient Encounter [id number] 12/19 [facility] Outpatient Encounter [id number] 01/12 [facility] Outpatient [facility]counter [id number] 01/12 [facility] Outpatient Encounter [id number] 01/22 [facility] Outpatient Encounter [id number] 01/26 [facility] Outpatient [facility]counter [id number] 01/26 [facility] Outpatient Encounter [id number] 02/08 [facility] Outpatient Encounter [id number] 02/19 [facility] Outpatient Encounter [id number] 02/19 [facility] Outpatient Encounter [id number] 03/02 [facility] Out[facility] Encounter [id number] 03/02 [facility] Outpatient Encounter [id number] 03/07 [facility] Outpatient Encounter [id number] 03/09 [facility] LD OFF/OP EST DECEMBER X REQ PHY/QHP [id number] Diagnos is: ICD-10- CM K92.1 LANDON Rios K 03/09 [facility] O/P EST MOD 30 MIN [id number] Diagnos is: ICD-10- CM K92.1 EVELIN RizzoA C 03/09 [place] [facility] Outpatient Encounter [id number] 03/14 [facility] Out[facility] Encounter [id number] 03/28 [facility] Out[facility] Encounter [id number] [facility] Out[facility] Encounter [id number] 04/12 [facility] Outpatient Encounter [id number] 04/12 [facility] Outpatient Encounter [id number] 04/17 [facility] Out[facility] Encounter [id number] 04/20 [facility] Out[facility] Encounter [id number] 04/23 [facility] Outpatient Encounter [id number] 04/23 [facility] Outpatient Encounter [id number] 05/07 [facility] Out[facility]counter [id number] 05/15 [facility] Out[facility] Encounter [id number] 06/08 [facility] OFFICE O/P EST MOD 30 MIN [id number] HOMAR,EVELIN FUENTESA C 06/20 [place] [facility] Outpatient Encounter [id number] 06/22 [facility] Out[facility]counter [id number] 06/24 [facility] Out[facility] Encounter [id number] [facility] Out[facility] Encounter [id number] 06/27 [facility] Out[facility]counter [id number] [facility] Out[facility] Encounter [id number] 1.07/16 [facility] Out[facility] Encounter [id number] 1.07/17 [facility] QNHP OL DIG ASSMT&MGMT 5-10 [id number] 1BY. [id number] Diagnos is: ICD-10- CM Z04.89 Encount er for examina tion and observa tion for oth reasons HELEN,EARLE IE 07/18 [facility] [place] [facility] Out[facility] Encounter [id number] IMTIAZ TAYLOR I 07/21 [facility] Out[facility] Encounter [id number] 08/02 [facility] [place] OFFICE O/P EST MOD 30 MIN [id number] Diagnos is: ICD-10- CM L60.3 Nail dystrop hy ZAMZAM MACK ES F 08/16 [place] [facility] Outpatient Encounter [id number] [facility] Out[facility] Encounter [id number] [facility] Out[facility] Encounter [id number] 09/05 [facility] Out[facility] Encounter [id number] 09/13 [facility] Out[facility] Encounter [id number] 09/17 [facility] OFFICE O/P EST HI 40 MIN [id number] Diagnos is: ICD-10- CM I48.92 Unspeci fied atrial flutter EVELIN GRAF 09/17 [facility] [place] [facility] Out[facility] Encounter [id number] EVELIN GRAF C 09/17 [facility] Out[facility] Encounter [id number] 10/15 [facility] Out[facility]counter [id number] 10/15 [facility] Out[facility]counter [id number] 10/15 [facility] SYNCH AUDIO-ONLY EST SF 10 [id number] Diagnos is: ICD-10- CM R31.9 Hematur ia, unspeci fied EVANS,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 RUBBER COMPOUNDER 10/15 [facility] Out[facility] Encounter [id number] 10/17 [facility] Out[facility] Encounter [id number] 10/19 [facility] Out[facility] Encounter [id number] 10/22 [facility] Out[facility] Encounter [id number] 10/23 [facility] Out[facility] Encounter [id number] 10/26 [facility] OFFICE O/P EST MOD 30 MIN [id number] Diagnos is: ICD-10- CM N18.30 Chronic kidney disease , stage 3 unspeci fied Annemarie GUEVARA 11/01 [place] [facility] NQHP OL DIG ASSMT&MGMT 21+ [id number] Diagnos is: ICD-10- CM Z12.2 Encntr screen for maligna nt neoplas m of respira tory organs RANCHO CROOKS 11/05 [facility] Out[facility] Encounter [id number] 11/05 [facility] Outpatient Encounter [id number] 11/26 [facility] NQHP OL DIG ASSMT&MGMT 5-10 [id number] Diagnos is: ICD-10- CM Z12.2 Encntr screen for maligna nt neoplas m of respira tory organs PUCHALSKI, GENI L 11/26 [facility] Out[facility] Encounter [id number] 11/30 [facility] Out[facility] Encounter [id number] 12/03 [facility] Outpatient Encounter [id number] 12/05 [facility] Outpatient Encounter [id number] 12/05 [facility] Social History Combined list of available smoking, tobacco, and other social history from Department of Defense and Veterans Affairs facilities. Social History Type Response Date Comment Source Tobacco smoking status [facility] VA-TOBACCO SCREEN FOLLOW-UP 11/01/2024 [facility] History of tobacco use VA-TOBACCO USE ADVICE 11/01/2024 [facility] History of tobacco use VA-TOBACCO USE EVERY DAY CIGARETTES 09/17/2024 [facility] [place] [facility] History of tobacco use VA-TOBACCO SCREEN FOLLOW-UP 09/17/2024 [facility] History of tobacco use VA-TOBACCO USER EVERY DAY 09/14/2023 [facility] [place] [facility] History of tobacco use [facility]CO [facility] of tobacco use VA-TOBACCO USE WI 30 MIN OF WAKEUP 07/28/2021 [facility] History [facility] tobacco use VA-TOBACCO USER EVERY DAY 06/04/2020 [facility] History of tobacco use VA-TOBACCO USE MED NO 02/01/2019 [facility] History of tobacco use VA-TOBACCO USER EVERY DAY 11/14/2017 [facility] History of tobacco use CURRENT SMOKER 05/16/2017 ~3 cigarettes per day [facility] History of tobacco use CURRENT SMOKER 11/01/2016 [facility] History of tobacco use V1-PT DECLINES TOBACCO CESSATION MEDS 05/03/2016 [facility] History of tobacco use CURRENT SMOKER 03/30/2016 smokes about 1 pack every 3 days for about 45 years [facility] History of tobacco use V1-PT DECLINES TOBACCO CESSATION MEDS 02/19/2014 [facility] History of tobacco use CURRENT SMOKER 06/04/2013 smokes a pack of cigaretts a week. [facility] History of tobacco use V1-PT DECLINES TOBACCO CESSATION MEDS 08/28/2012 [facility] History of tobacco use CURRENT SMOKER 01/03/2012 [facility] History of tobacco use V1-PT DECLINES TOBACCO CESSATION MEDS 07/22/2011 [facility] History of tobacco use CURRENT SMOKER 01/25/2011 [facility] History of tobacco use CURRENT SMOKER 09/03/2009 advise stop [facility] History of tobacco use V1-PT DECLINES TOBACCO CESSATION MEDS 06/28/2008 [facility] History of tobacco use CURRENT SMOKER 06/28/2008 5-6 cigarettes/day [facility] History of tobacco use CURRENT SMOKER 03/18/2005 [facility] History of tobacco use CURRENT SMOKER 12/28/2001 Patient states he has smoked from age 16-present, 1/2 pk cigarettes daily. [facility] Plan of Care List of future care activities from Department of Veterans Affairs facilities. Additional future care activities may be listed in the Assessment and Plan section. Date/Time Care Activity Care Activity Detail Facili ty 12/12/2024 AMBULATORY - MEDICINE AMBULATORY - MEDICI NE [facility]
--- OUTSIDE RECORDS SUMMARY | 2024-12-08 12:04 | XMS_ITS ---
Author Name [facility] [facility] [facility] [place] Address [address] [place] [address] Care Team Providers Care Clinical Social Worker Name Role Phone PRIYANKA GUEVARA Primary Care [...] PART A May 15, 2015 PART A [id number] KIN[place]AL LAW SR PATIENT MEDICARE (WNR) MEDICARE (M) PART A May 15, 2015 PART A [id number] KINJAL LAW SR PATIENT Selected Encounter [...] care activities for the patient from all [place] [facility] This section includes future appointments and future orders which are active, pending or scheduled. Future Appointments This section includes appointments that were scheduled to occur 6 months from the date of the Encounter, up to a maximum of 20 appointments. The data comes from all [facility]. Appointment Date/Time Appointment Type Appointme nt Facility Name Aug 16, 2024 09:00 AM AMBULATORY - MEDICINE [facility] Sep 17, 2024 10:00 AM [facility]ORY - MEDICINE [facility] Sep 28, 2024 09:00 AM AM[facility]ULATORY [place]IC[place] [facility] [place] [facility] Oct 15, 2024 11:30 AM AMBULATORY - MEDICINE [place] [facility] [place] [facility] Oct 26, 2024 11:30 AM [facility]ATORY - MEDICINE [facility] Oct 29, 2024 10:45 AM AMBULATORY - MEDICINE [place] [facility] [place] [facility] Nov 01, 2024 03:30 PM AMBULATORY - MEDICINE [facility] Nov 13, 2024 11:00 AM AMBULATORY - MEDICINE [place] [facility] [place] [facility] Nov 26, 2024 09:45 AM AMBULATORY - NONE [facility] [place] [facility] Dec 12, 2024 09:30 AM AMBULATORY - MEDICINE [facility] Active, Pending, and Scheduled Orders This section includes a listing of several types of active, pending, and scheduled orders, including clinic medications orders, diagnostic test orders, procedure orders and consult orders; where the start date of the order is 45 days before the date of the Encounter or 45 days after the date of theEncounter. The data comes from all [facility]. Test Date/Time Test Type Test Details Facility Name Jun 20, 2024 12:00 AM Laboratory - Chemi str Order MICROALBUMIN CREATININE RATIO PANEL URINE (RANDOM) [facility] Social History: Smoking Status (Most current) [...] place. Date/Time Current Smoking Status Comment Facil [facility] Sep 14, 2023 10:00 AM VA-TOBACCO USER EVERY DAY [facility] [place] [facility] Tobacco Use History This section includes [...] Sep 14, 2023 10:00 AM VA-TOBACCO USE GLOBAL MANAGER NO [facility] [place] [...] Aug 02, 2022 01:11 PM VA-TOBACCO USE GLOBAL MANAGER NO [facility] [place] [facility] Jul 28, 2021 11:21 AM VA-TOBACCO USE GLOBAL MANAGER NO [facility] [place] [facility] Jul 28, 2021 11:21 AM VA-TOBACCO USE MED NO [facility] [place] [facility] Jul 28, 2021 11:21 AM VA-TOBACCO USE [place] 30 MIN OF WAKEUP [facility] [place] [facility] Jul 28, 2021 11:21 AM VA-TOBACCO USER EVERY DAY [facility] Jun 04, 2020 01:59 PM VA-TOBACCO USE 30 YEARS OR MORE [facility] Jun 04, 2020 01:59 PM [facility]-TOBACCO USE ADVICE [facility] Jun 04, 2020 01:59 PM VA-TOBACCO USE GLOBAL MANAGER NO [facility] Jun 04, 2020 01:59 PM VA-TOBACCO USE MED NO [facility] Jun 04, 2020 01:59 PM VA-TOBACCO USE WI 30 MIN OF WAKEUP [facility] Jun 04, 2020 01:59 PM VA-TOBACCO USER EVERY DAY [facility] Mar 30, 2016 10:35 AM CURRENT SMOKER smokes about 1 pack every 3 days for about 45 years [facility] Encounter Notes: All associated [...] COSIGNER: URGENCY: STATUS: COMPLETED Date: Jun Division: [facility] referred by Pharmacy Call Center for medication renewal: Non-controlled/maintenanc e medication Medications requested: [id number] SILDENAFIL CITRATE 100MG TAB Defer to primary care provider To be mailed . Please review and renew if appropriate. *This note was generated by [facility] Pharmacy Customer Care. If you have any questions or need assistance, do not contact this author. Please refer all questions to your local, on-site pharmacy departments. /subhash/ PEBBLES BURNS CPhT Graphic Editor, MS/Pharmacy Customer Care Signed: 06/22/2024 11:53 Receipt Acknowledged By: 06/22/2024 12:21 /subhash/ CARLA KEENANN RN-BC REGISTERED NURSE 06/22/2024 11:57 /es/ ZIGGY AMBRIZ CERTIFIED NURSE PRACTITIONER PEBBLES BURNSRHELEN KELLER HOSPITALNikkie KEN [facility]
--- OUTSIDE RECORDS SUMMARY | 2024-12-08 12:04 | XMS_ITS ---
Author Name [facility] [place] Address [address] [place] [address] Care Team Providers Care Laser Beam Cutter Name Role Phone JAROD GUEVARADEJONMASSIEL Primary Care Provider Unavail able Insurance Providers: [...] PART A May 15, 2015 PART A [id number] KINJAL LAW SR PATIENT MEDICARE (WNR) MEDICARE (M) PART A May 15, 2015 PART A [id number] KINJAL LAW SR PATIENT Selected Encounter This section includes the information on record at MD for the Encounter. Date/Time Encounter Type Encounter Description Reason Provider Source Nov 05, 2024 12:39 PM NQHP OL DIG ASSMT&MGMT 21+ PULMONARY/CHEST ICD-10-CM Z12.2 Encntr screen for malignant neoplasm of respiratory organs LIYAH CROOKS IHE Encounter Template Text not used by MD Assessments - Encounter Diagnoses This section includes the primary and secondary diagnoses documented for the Encounter. Date/Time Primary/Secondary Diagnosis Diagnosis Name Provider Source Nov 05, 2024 12:54 PM PRIMARY Encntr screen for malignant neoplasm of respiratory organs LIYAH CROOKS [facility] Plan of Treatment: Future Appointments (+ 6 months) and Future Tests (+/- 45 days) The Plan of Treatment section includes future care activities for the patient from all [facility]. This section includes future appointments and future orders which are active, pending or scheduled. Future Appointments This section includes appointments that were scheduled to occur 6 months from the date of the Encounter, up to a maximum of 20 appointments. The data comes from all [facility] facilities. Appointment Date/Time Appointment Type Appointme nt Facility Name Nov 13, 2024 11:00 AM AMBULATORY [facility] MED[facility]INE [facility] Nov 26, 2024 09:45 AM AMBULATORY - NONE [facility] Dec 12, 2024 09:30 AM AMBULATORY - MEDICINE [facility] January 09, 2025 10:00 AM AMBULATORY - MEDICINE [facility] Mar 18, 2025 09:30 AM AMBULATORY - MEDICINE [facility] Mar 20, 2025 01:00 PM AMBUL[facility]ORY MEDICINE [facility] Active, Pending, and Scheduled Orders [...] PM Consult Order [facility]ITY CARE-GI GENERAL Cons Billboard Erector [facility] Nov 13, 2024 01:37 PM Consult Order COMMUNITY CARE-DENTAL GENERAL Cons Billboard [facility] Lab Results: +/- 30 days of the encounter This section includes the Chemistry and Hematology Lab Results on record with MD for the patient. Radiology Reports and Pathology Reports are provided separately, in subsequent sections. Lab Results This section contains the Chemistry/Hematology Results that were resulted 30 days before or 30 daysafter the date of the Encounter. Date/Time Source Result Type Result - Unit Interpretation Reference Range Specimen Type Comment Nov 09, 2024 10:46 AM [facility] PSA SERUM Specimen Type: SERUM No comment entered. Ordering Provider: VIKTOR GUEVARA Report Released Date/Time: Nov 04, 2024 12:00 PM Reporting Lab: [address] [address] Performing Lab: [facility] [address] [address] PSA 0.32 ng/mL 0.00-4.00 Nov 09, 2024 10:46 AM [facility] VITAMIN D (25-OH) SERUM Specimen Type : SERUM No comment entered. Ordering Provider: PRIYANKA GUEVARA Report Released Date/Time: Nov 04, 2024 12:00 PM Reporting Lab: [address] [address] Performing Lab: [address] [address] VITAMIN D (25-OH) 16 ng/mL L 20-50 Nov 09, 2024 10:46 AM [facility] LIPID PANEL FASTING SERUM Specimen Ty pe: SERUM No comment entered. Ordering Provider: PRIYANKA GUEVARA Report Released Date/Time: Nov 04, 2024 12:00 PM Reporting Lab: [address] [address] Performing Lab: [address] [address] CHOLESTEROL 205 mg/dL H TRIGLYCERIDE 175 mg/dL H 0-150 LDL calculated 141 mg/dL H 0-129 CHOL/HDL 7.1 HDL CHOLESTEROL 29 mg/dL L 40-60 Nov 09, 2024 10:46 AM [facility] BASIC METABOLIC PANEL (non-fasting) SERUM Specimen Type: SERUM No comment entered. Ordering Provider: PRIYANKA GUEVARA Report Released Date/Time: Nov 04, 2024 12:00 PM Reporting Lab: [address] [address] Performing Lab: [address] [address] UREA NITROGEN 20 mg/dL 7-25 GLUCOSE 87 mg/dL 65-100 SODIUM 138 mmol/L 135-145 POTASSIUM 4.6 mmol/L 3.5-5.0 CHLORIDE 109 mmol/L 100-110 CO2 20 meq/L 20-30 CALCIUM 8.9 mg/dL 8.5-10.2 CREATININE, Serum 1.28 mg/dL 0.50-1.40 eGFR(CKD-EPI 2020) 58 mL/min L >60 Nov 09, 2024 10:46 AM [facility] CBC AND DIFF (AUTO) BLOOD Specimen Ty pe: BLOOD No comment entered. Ordering Provider: PRIYANKA GUEVARA Report Released Date/Time: Nov 04, 2024 12:00 PM Reporting Lab: [address] [address] Performing Lab: [address] [address] WBC 3.10 10*3/uL L 4.50-11.00 RBC 4.05 [...] 10*3/uL 0.00-0.00 Oct 30, 2024 10:35 AM [facility] MICROSCOPIC AUTOMATED, URINE URINE Specimen T ype: URINE Comment: If Glucose = >500 and Ketones are positive, please alert the Physician. Ordering Provider: NUBIA EVANS SPECIAL MACHINE OPERATOR Report Released Date/Time: Oct 15, 2024 11:36 AM Reporting Lab: [address] [address] Performing Lab: [address] [address] UA WBC 0-5 /[HPF] 0-5 UA BACTERIA 1+ /[HPF] NoneObs UA RBC TNTC /[HPF] 0-3 Oct 30, 2024 10:35 AM [facility] URINALYSIS URINE Specimen Type: URINE Comment: If Glucose = >500 and Ketones are positive, please alert the Physician. Ordering Provider: NUBIA EVANS SPECIAL MACHINE OPERATOR Report Released Date/Time: Oct 15, 2024 11:36 AM Reporting Lab: [address] [address] Performing Lab: [address] [address] UA COLOR Dark-Brown Yellow UA APPEARANCE Ex.Turbid [...] and tobacco- related health factors from the MD facility where the Encounter took place. Current Smoking Status This section includes the most current smoking, or tobacco-related health factor, from the MD facility where the Encounter took place. Date/Time Current Smoking Status Comment [facility] Sep 17, 2024 10:04 AM VA-TOBACCO USE BOB RY DAY CIGARETTES [facility] [place] [facility] Tobacco Use History This section includes a history of the smoking, or tobacco-related health factors, that were collected on or before the date of the Encounter. The data comes from the MD facility where the Encounter took place. Date/Time Smoking Status/Tobac co Use Comment [facility] Sep 17, 2024 10:04 AM VA-TOBACCO USE EVERY DAY CIGARETTES [facility] [place] [facility] Sep 14, 2023 10:00 AM VA-TOBACCO DOESNT USE WI 30 MIN WAKEUP [facility] [place] [facility] Sep 14, 2023 10:00 AM VA-TOBACCO USE 30 YEARS OR MORE [facility] [place] [facility] Sep 14, 2023 10:00 AM VA-TOBACCO USE ADVICE [facility] [place] [facility] Sep 14, 2023 10:00 AM VA-TOBACCO USE GEOPHYSICAL OBSERVER NO [facility] [place] [facility] Sep 14, 2023 10:00 AM VA-TOBACCO USE MED NO [facility] [place] [facility] Sep 14, 2023 10:00 AM VA-TOBACCO USER EVERY DAY [facility] [place] [facility] Aug 02, 2022 01:11 PM VA-TOBACCO USE 30 YEARS OR MORE [facility] [place] [facility] Aug 02, 2022 01:11 PM VA-TOBACCO USE ADVICE [facility] [place] [facility] Aug 02, 2022 01:11 PM VA-TOBACCO USE GEOPHYSICAL OBSERVER NO [facility] [place] [facility] Aug 02, 2022 01:11 PM VA-TOBACCO USE MED NO [facility] [place] [facility] Aug 02, 2022 01:11 PM VA-TOBACCO USE WI 30 MIN OF WAKEUP [facility] [place] [facility] Aug 02, 2022 01:11 PM VA-TOBACCO USER EVERY DAY [facility] [place] [facility] Jul 28, 2021 11:21 AM VA-TOBACCO USE 30 YEARS OR MORE [facility] [place] [facility] Jul 28, 2021 11:21 AM VA-TOBACCO USE ADVICE [facility] [place] [facility] Jul 28, 2021 11:21 AM VA-TOBACCO USE GEOPHYSICAL OBSERVER NO [facility] [place] [facility] Jul 28, 2021 11:21 AM VA-TOBACCO USE MED NO [facility] [place] [facility] Jul 28, 2021 11:21 AM VA-TOBACCO USE WI 30 MIN OF WAKEUP [facility] [place] [facility] Jul 28, 2021 11:21 AM VA-TOBACCO USER EVERY DAY [facility] [place] [facility] Jun 04, 2020 01:59 PM VA-TOBACCO USE 30 YEARS OR MORE [facility] [place] [facility] Jun 04, 2020 01:59 PM VA-TOBACCO USE ADVICE [facility] [place] [facility] Jun 04, 2020 01:59 PM VA-TOBACCO USE GEOPHYSICAL OBSERVER NO [facility] [place] [facility] Jun 04, 2020 01:59 PM VA-TOBACCO USE MED NO [facility] [place] [facility] Jun 04, 2020 01:59 PM VA-TOBACCO USE WI 30 MIN OF WAKEUP [facility] [place] [facility] Jun 04, 2020 01:59 PM VA-TOBACCO USER EVERY DAY [facility] [place] [facility] Mar 30, 2016 10:35 AM CURRENT SMOKER smokes about 1 pack every 3 days for about 45 years [facility] [place] [facility] Radiology Reports: +/- 30 days [...] the Encounter. The data comes from all MD treatment facilities. Date/Time Radiology Report Provider Source Nov 26, 2024 09:35 AM LDCT LUNG CANCER SCREENING: KINJAL LAW [id number] -[id number] M Exm Date: NOV 26, 2024@09:35 Req Phys: PRIYANKA GUEVARA Loc: [facility] MD MARTINEZ (Req'g Lo Img Loc: [place]/CT Service: Unknown [facility] [place] [address] (Case 16 COMPLETE) LDCT LUNG CANCER SCREENING (CT Detailed) CPT:46398 Proc Modifiers : BILATERAL EXAM Reason for Study: Active smoker Clinical History: More than 20 pack years 12 months follow-up, overdue Report Status: Verified Date Reported: NOV 26, 2024 Date Verified: NOV 26, 2024 Social Media Community Manager E-Sig:/ES/STEPHANIE KONG Report: EXAM: CT THORAX [...] Primary Interpreting Staff: STEPHANIE KONG, Staff Physician (Social Media Community Manager) /STEPHANIE ALEXANDRA [facility] Pathology Reports: +/- 30 days of [...] the Encounter. The data comes from all MD treatment facilities. Date/Time Pathology Report Provider Source Oct 30, 2024 10:35 AM LR MICROBIOLOGY RE PORT: Reporting Lab: [facility] [CLIA# [id number]] [address] [place] [id number] Accession [UID]: [id number] [[id number]] Received: Oct 30, 2024@10:35 Collection sample: URINE CLEAN CATCH Collection date: Oct 30, 2024 10:35 Site/Specimen: URINE Provider: NUBIA EVANS NP Test(s) ordered: URINE CULTURE(MWROX).......... completed: Nov 02, 2024 08:32 * BACTERIOLOGY FINAL REPORT => Nov 02, 2024 08:32 TECH CODE: [id number] Bacteriology Remark(s): NO GROWTH IN 24 HOURS, FINAL REPORT TO FOLLOW. <10,000 CFU/ML GRAM POSITIVE (NOT OTHERWISE SPECIFIED) =--=--=--=--=--=--=--=--=--=--=-- =--=--=--=--=--=--=--=--=--=--=-- =--=--=--=-- Performing Laboratory: Bacteriology Report Performed By: [facility] [CLIA# [id number]] [address] [place] [id number] [facility] Encounter Notes: All associated encounter notes This section contains the clinical notes associated to the Encounter. Date/Time Encounter Note(s) Provider Source Nov 05, 2024 12:39 PM PREVENTIVE MEDICINE RISK ASSESSMENT SCREENING NOTE: LOCAL TITLE: LUNG CANCER SCREENING DOCUMENTATION STANDARD TITLE: PREVENTIVE MEDICINE RISK ASSESSMENT SCREENING NO DATE OF NOTE: NOV 05, 2024@12:39 ENTRY DATE: NOV 05, 2024@12:39:39 AUTHOR: RANCHO CROOKS COSIGNER: URGENCY: STATUS: COMPLETED LUNG CANCER SCREENING DOCUMENTATION Has ADDENDA LUNG CANCER SCREENING PROGRAM [facility] Chart review completed by [facility] LCS Program. Information provided in this documentation is obtained from source documents within the Veterans personal electronic health record and directly from the [facility] through LCS Coorinator outreach in an effort to confirm eligibility for Lung Cancer Screening. LCS Coordinator outreach attempt, successful. PCP: Dr. Guevara. 74 year old [place] seen in clinic by PCP, Dr. Guevara 11/01/24. Lung Cancer Screening provider clinical reminder completed, patient meets USPSTF criteria for Lung Cancer Screening: Age 50-80, minimum 20 pack year history of smoking cigarettes, currently smoking or quit within the past 15 years. Provider engaged in a shared decision making conversation with the [facility] discussing rationale, risks and benefits for Lung Cancer Screening. At the conclusion of the visit, with the Veterans permission, an order for LCS LDCT was placed. [place] scheduled for LCS LDCT 11/20/24 Cigarette Smoking Hx: 33 TPY (0.5 pack/day for 66 years) Smoking Status: Current smoker, about 2 - 3 cig/day at this time. Referral to Tobacco Cessation Program: Declined Clinically Relevant: GERD, CKD stage 3, Multifocal cystic lesions in liver, HTN, HLD, Atrial flutter, cardiac pacemaker in situ, cardiac sarcoidosis followed by [facility] and [facility]. Prostate cancer. Active Problem Obesity E66.9 10/20/2024 JD GRAF Eczema L30.9 06/17/2024 JD GRAF Prediabetes R73.03 10/20/2024 JD GRAF CKD stage 3 N18.30 10/20/2024 JD GRAF Secondary erectile dysfunction N52. 06/17/2024 JD GRAF GERD - Gastro-esophageal reflux dis 06/17/2024 JD GRAF Lesion of liver K76.9 06/17/2024 JD GRAF Long-term current use of anticoagul 06/17/2024 ROSIE PORRAS Gout M10.9 06/23/2021 EMANUEL MATTEHWS Primary malignant neoplasm of prost 06/20/2024 EMANUEL MATTHEWS myocardial perfusion scan R69. 12/01/2018 EMANUEL MATTHEWS Cardiac pacemaker in situ Z95.0 10/20/2024 JD GRAF Atrial flutter I48.92 10/20/2024 JD GRAF Elevated PSA R97.20 06/17/2024 JD GRAF Screening for malignant neoplasm of 06/17/2024 JD GRAF H/O: recreational drug use F19.21 06/20/2024 JD GRAF History of alcohol abuse F10.11 06/20/2024 JD GRAF Hypertension (SNOMED CT 06468608) I 03/30/2016 VASU WALKER Osteoarthritis of multiple joints M 06/17/2024 JD GRAF Refractive error (ICD-9-CM 367.9) 3 09/26/2007 JOSE ROSENBERG OD Open Angle Glaucoma Suspect 365.01 09/26/2007 JOSE ROSENBERG OD Hyperlipidemia (SNOMED CT 88424275) 03/30/2016 VASU WALKER Nicotine dependence F17.200 10/20/2024 JD GRAF PTSD - Post-traumatic stress disord 06/17/2024 JD GRAF Active Outpatient Medications (including Supplies): Active Outpatient Medications Status = 1) ALLOPURINOL 300MG TAB TAKE ONE TABLET BY MOUTH ONCE DAILY ACTIVE Indication: FOR GOUT 2) AMLODIPINE BESYLATE 10MG TAB TAKE ONE TABLET BY MOUTH ONCE ACTIVE DAILY FOR BLOOD PRESSURE/HEART, DO NOT TAKE WITH GRAPEFRUIT JUICE Indication: FOR HIGH BLOOD PRESSURE 3) APIXABAN 5MG TAB TAKE ONE TABLET BY MOUTH TWICE DAILY ACTIVE Indication: FOR PREVENTION OF BLOOD CLOTS 4) ATORVASTATIN CALCIUM 40MG TAB TAKE ONE-HALF TABLET BY MOUTH ACTIVE AT BEDTIME Indication: FOR HIGH CHOLESTEROL 5) BISACODYL 5MG EC TAB TAKE TWO TABLETS BY MOUTH AT BEDTIME ACTIVE FOR BOWELS - LAXATIVE 6) COAL TAR 2% SHAMPOO SHAMPOO SUFFICIENT AMOUNT TOPICALLY ACTIVE TWICE A WEEK NEEDED Indication: FOR SEBORRHEIC DERMATITIS 7) GLYCERIN (ADULT) RTL SUPP INSERT 1 SUPPOSITORY RECTALLY ONCE ACTIVE DAILY Indication: FOR CONSTIPATION 8) METOPROLOL SUCCINATE 50MG SA TAB TAKE ONE TABLET BY MOUTH ACTIVE ONCE DAILY FOR BLOOD PRESSURE/HEART 9) OMEPRAZOLE 20MG EC CAP TAKE TWO CAPSULES BY MOUTH ONCE DAILY ACTIVE 10) OXYBUTYNIN CHLORIDE 10MG SA TAB TAKE ONE TABLET BY MOUTH ACTIVE ONCE DAILY FOR BLADDER INSTABILITY Indication: FOR FREQUENT URINATION 11) PSYLLIUM ORAL PWD TAKE 1 TABLESPOONFUL BY MOUTH ONCE DAILY ACTIVE (MIX WITH AT LEAST 8OZ. OF WATER OR OTHER FLUID) 12) SILDENAFIL CITRATE 100MG TAB TAKE ONE TABLET BY MOUTH ONCE ACTIVE DAILY NEEDED TAKE 1 HOUR PRIOR TO SEXUAL ACTIVITY Indication: FOR ERECTILE DYSFUNCTION 13) TRANEXAMIC ACID 650MG TAB TAKE ONE TABLET BY MOUTH TWICE ACTIVE DAILY FOR 7 DAYS IMAGING STUDIES: IP - Imaging Profile 09/14/2023 CT THORAX W/O CONT CPT Code: 19166 CT ABDOMEN W/O CONT CPT Code: 51573 Interpreting Staff: LEONILA HOGUE JR Exam Case Number: [id number] Exam Status: COMPLETE Rpt Status: VERIFIED Technologist: MODESTO DUEÑAS Reason for Study: f/u cat scan in 20+pack year smoker History: 1. Multifocal cystic lesions in the liver, enlarged compared to 11/11/2016. 2. The previously described sclerotic lesion within the T3 vertebral body is unchanged, likely benign. 3. Mild cardiomegaly. 4. No new or suspicious pulmonary nodule. Report: Study: Noncontrast CT scan of the [...] change or new abnormality, as described above. DX Codes: No immediate attention required 08/31/2022 CT THORAX W/O CONT CPT Code: 51176 Interpreting Staff: RADIOLOGY,OUTSIDE Exam Case Number: [id number] Exam Status: COMPLETE Rpt Status: VERIFIED Technologist: MODESTO DUEÑAS Reason for Study: 20+ pack year smoker now with one month of productive History: cough Report: History (exactly as written by referring clinician): 20+ pack year smoker now with one month of productive Technique: CT scan of the chest. The study was protocoled and supervised at the local MD facility. 1412 images were subsequently received by the MD [facility] (NTP) for interpretation. Total DLP (mGy*cm): 106 IV Contrast Type: None IV Contrast Dose (mL): None Comparison: CT 11/11/2016 Findings: Lines and tubes: None. Lungs and airways: Central airways are clear. Lungs are clear. No pleural effusion. Heart and mediastinum: Visualized thyroid gland is normal. No enlarged mediastinal, hilar, or axillary lymph nodes. Heart is mildly enlarged. Esophagus is unremarkable. Vessels: Atherosclerotic vascular calcifications in the aorta and the coronary arteries. Ascending aorta is normal in caliper. Main pulmonary artery is normal in caliper. Chest wall: Right chest wall cardiac device. Abdomen: Limited views of the upper abdomen show multiple focal cystic lesions in the liver. The dominant index lesion measures 6.3 cm, previously 4.3 cm on 11/11/2016. Bones: The previously described sclerotic lesion within the T3 vertebral body is unchanged, likely benign. Moderate degenerative disc disease at T11-12. Impression: 1. Multifocal cystic lesions in the liver, enlarged compared to 11/11/2016. 2. The previously described sclerotic lesion within the T3 vertebral body is unchanged, likely benign. 3. Mild cardiomegaly. 4. No new or suspicious pulmonary nodule. READING PHYSICIAN: Owen Joshua M.D. -[id number] 08/31/2022 11:43 EST [facility] Teleradiology Program [phone] (For Medical Practitioner Use Only) Attention Patients / Veterans: If you have questions or concerns about these test results, please contact your ordering provider or primary care team. DX Codes: NO ALERT REQUIRED 11/11/2016 (Case 310 COMPLETE) XXLDCT FOR LUNG CANCER SCREENING (CT Inactive) CPT:G0297 Reason for Study: 50+years smoker to have LDCT screening exam Clinical History: Report Status: Verified Date Reported: NOV 12, 2016 Date Verified: NOV 12, 2016 Social Media Community Manager E-Sig:/ES/Willard Chandler MD Report: EXAM:LUNG CANCER SCREENING COMPARISON:Chest x-ray February 07, 2012 TECHNIQUE: LDCT Helical noncontrast chest CT with low dose. Multiplanar reformats are included. The tomogram was reviewed. The DLP is 108.2 mGycm and the CTDIvol is 4.4 mGy. FINDINGS: The thoracic inlet is unremarkable. The central airways are patent. There is bibasilar subsegmental atelectasis and/or linear scarring. No pleural effusion. Small amount of pericardial fluid is noted. No enlarged mediastinal lymphadenopathy. Normal heart size. The great vessels are normal in caliber. Scattered vascular calcifications, including coronary artery and thoracic aorta. Mild cardiomegaly. Limited assessment of the included abdomen without IV contrast and by low-dose CT technique. No suspicious adrenal abnormality. Multiple hepatic cysts and/or too small for to rise low density hepatic foci are noted. Small sclerotic focus noted in the T3 vertebral body is nonspecific. Impression: Please note was entered into CPRS for the order physician and an e-mail will be sent as well. Note of T3 vertebral body sclerotic focus possibly representing metastatic disease versus benign sclerosis. Given the history of prostate cancer, a blastic metastatic lesion is not excluded. Advise correlation with PSA values and MRI thoracic spine versus Nuclear Medicine Bone Scan. Incidental multiple hepatic cysts and/or too small to characterize hepatic low density foci. Abdominal ultrasound may be obtained for further assessment. ACR LUNG-RADS CATEGORY 1S, Negative. No nodules are definitely benign nodules. Note: Category 2 includes nodules with a very low likelihood of becoming a clinically active cancer due to size or lack of growth, and has a probability of malignancy of less than 1%. Recommendation: Continue annual screening with low dose CT chest in 12 months Pulmonary Medicine Provider: No pulmonary provider per [facility]/chart review. PFTS: No PFTS completed per chart review. TTE: 07/26/2023 Echocardiogram (in [place] [facility] note) LVEF 55 to 60% Severely increased left ventricular wall thickness. Severe septal asymmetric hypertrophy. Pathology: 12/19/2018 Prostate needle biopsy [place] 4+5, 12 out of 12 cores (in [place]) 10/05/2012 Prostate needle biopsy Diagnosis: A,D,E,F,G,H,I) RT. ANTERIOR/MIDLINE ANTERIOR/MIDLINE MIDLINE/POSTERIOR/LT. ANTERIOR/MIDLINE & POSTERIOR: No tumor identified. B) RIGHT MIDLINE: ADENOCARCINOMA, 2/3 biopsy cores. Royer score 3+3=6/10, total tumor volume: 10%. C) RIGHT POSTERIOR: ADENOCARCINOMA, 2/2 biopsy cores. L[place]by score 3+4=7/10, total tumor volume: 10%. Personal History of Malignancy: Prostate cancer 2019 stage IIIc (cT2c N0M0) Royer 4+5, 12 out of [address] Arora at [facility], last office note 03/29/2024. Underwent external beam radiation at [facility] with 18 months GnRH hormones. Initial bone scan and CT scan showed no steven disease. 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 LCS welcome letter and educational materials will be mailed to Veterans address on file. Chart review for administrative purposes only. The following documentation serves to update the TPY based on 's reported smoking hx during LCS outreach call. [facility] states he began smoking at age 8, around 0.5 pack/day, currently smokes about 2 - 3 cig/day. The patient smokes cigarettes. How many years have you smoked cigarettes? # of years: 66 Average number of packs/day over the entire time patient smoked: Packs/day: 0.5 This documentation serves to satisfy the Initial provider clinical reminder for LCS in the absence of prior completion, with LCS LDCT ordered: No clinical exclusions, patient is a current candidate for the lung cancer screening program. Patient agrees to lung cancer screening. Lung cancer screening information provided and low dose CT will be ordered. Patient currently uses cigarettes and does not want assistance with smoking cessation at this time. /subhash/ CARLA LAWSONN,RN. LUNG CANCER SCREENING NURSE Signed: 11/05/2024 12:54 11/14/2024 ADDENDUM STATUS: COMPLETED Received a VM from indicating that he would like to reschedule LCS LDCT. LCS Coordinator placed call back to [facility] who states 11/20/2024 LCS LDCT conflicts with a . Advised we would gladly r/s this appt for him. Appointment detail request forwarded to Radiology team. [facility] inquired about Lung Cancer, asking about radiation treatments. advised that Lung Cancer is treated differently depending on multiple factors, including functional status, lung function and stage. Inquired about Veterans curiosity about Lung [facility] was mistakenly under the impression that he has lung cancer. LCS Coordinator explained in great detail the role of a screening program and rationale for screening. USPSTF criteria reviewed, what to expect with a LCS LDCT reviewed and prior Aug 2023 CT Thorax reviewed with [place] as well. [place] verbalized good understanding and appreciation for detailed explanation and clarification. understands that radiology team will conatct him by phone to r/s scan and that specific appointment request detail was provided. [place] expressed apprecaition for time spent. /subhash/ GENI AGUIRREN,RN,OCN LUNG CANCER SCREENING NURSE NAVIGATOR Signed: 11/14/2024 13:06 [facility]
--- NOTE | 2024-12-08 12:48 | PC.NURSE ---
Addendum entered by Darya Jorge 12/08/24 12:49: SHA Mendez notified. Original Note: Labs drawn and sent for analysis. Blood clot noted in urine specimen collection cup. Results pending.
[2024-12-08 13:00] LABS: MANUAL DIFF FLAG NO
[2024-12-08 13:02] LABS: Basophils Percent Auto 0.2 % (0-2); Eosinophils Percent Auto 0.7 % (0-4); Hematocrit 26.9 % (42.0-52.0); Hemoglobin 8.8 g/dl (14.0-18.0); Imm Gran Abs Auto 0.01 X10*3/uL (0.00-0.03); Imm Gran Pct Auto 0.2 % (0.0-0.4); Lymphocytes Absolute Auto 0.6 X10*3/uL (1.2-4.9); Lymphocytes Percent Auto 13.5 % (20-40); Mean Corpuscular HGB Conc 32.7 g/dl (31.0-36.0); Mean Corpuscular Hemoglobin 30.6 pg (27.0-33.0); Mean Corpuscular Volume 93.4 fL (80.0-98.0); Monocytes Absolute Auto 0.6 X10*3/uL (0.1-1.2); Monocytes Percent Auto 12.6 % (2-11); Neutrophils Absolute Auto 3.2 x10*3/uL (2.0-8.3); Neutrophils Percent Auto 72.8 % (45-73); Platelet Count 185 X10*3/uL (160-400); Red Blood Count 2.88 X10*6/uL (4.60-5.80); Red Cell Distribution Width 15.1 % (11.0-16.0); White Blood Count 4.4 X10*3/uL (4.8-10.8)
[2024-12-08 13:04] LABS: Appearance Urine Turbid; Glucose Urine UA 100 mg/dL (Negative); Leukocyte Esterase Urine Moderate (2+) (Negative); Nitrite Urine Positive (Negative); PH 6.5 (5.0-9.0); UMIC TRIGGER UACC YES; Urine Blood Large (3+) (Negative); Urine Ketones 15 mg/dL (Negative); Urine Protein 300 (3+) mg/dL (Neg-Trace)
[2024-12-08 13:06] LABS: Color Urine Brown
[2024-12-08 13:23] LABS: Bacteria Urine Trace (None Seen); Hyaline Casts Urine 0-2 /LPF (0-2); RBC Urine >20 /HPF (0-2); UACC Culture Trigger YES
[2024-12-08 13:26] LABS: Alanine Aminotransferase 16 U/L (0-40); Albumin Level 3.6 g/dL (3.5-5.0); Alkaline Phosphatase 62 U/L (39-117); Anion Gap 12 (12-20); Aspartate Amino Transferase 23 U/L (5-37); Bilirubin Total 0.4 mg/dL (0.0-1.0); Blood Urea Nitrogen 27 mg/dL (9-16); Calcium 8.9 mg/dL (8.4-10.2); Carbon Dioxide 22 mmol/L (22-29); Chloride 110 mmol/L (96-108); Creatinine Clr Calc Pharmacy 46.5; Estimated Glomerular Filt Rate 41; Glucose Random 84 mg/dL (60-115); Lipase 21 U/L (8-78); Potassium 5.3 mmol/L (3.3-5.1); Sodium 139 mmol/L (135-145); Total Protein 6.2 g/dL (6.5-8.0)
[2024-12-08] MEDS: cefTRIAXone sodium 1 GM VIAL IVPUSH (13:44)
[2024-12-08] MEDS: Lidocaine HCl 2 % Urojet 10 ML JEL.PF.APP TOPICAL (14:41)
--- NOTE | 2024-12-08 14:41 | PC.NURSE ---
Failed attempt at 3-way fernandes catheter insertion with 22 Kyrgyz catheter. Attempting with urojet jelly and 16 Kyrgyz catheter at this time. Hx prostate enlargement.
--- NOTE | 2024-12-08 14:45 | PC.NURSE ---
Successful insertion of 16 Kinyarwanda 3-way urinary catheter. Connected to continuous bladder irrigation (two 3000 mL NS bags). Draining clear, orange/pink-tinged urine into drainage bag. Care ongoing by this RN. Urojet 2% used during procedure. SHA Mendez aware.
--- NOTE | 2024-12-08 15:25 | P.HPHOSP_ITS ---
History of Present Illness Date of Service: 12/08/24 Chief Complaint: Hematuria, urinary retention 74-year-old male with a history of cardiac sarcoidosis with complete heart block, for which a dual-chamber pacemaker was placed in 2019. Patient was advised in 2023 to upgrade to an AICD due to episodes of non-sustained ventricular tachycardia, but he declined. His past medical history is also significant for chronic kidney disease (CKD), hyperlipidemia (HLD), hypertension (HTN), and prostate cancer status post radiation therapy, which was complicated by radiation cystitis. He presents today due to urinary retention and has been experiencing intermittent hematuria for nearly a month and worse today, H/H is down and has UTI.. He is on Eliquis for a reason that has not yet been determined. Continuous bladder irrigation (CBI) has been initiated. Given Ceftriaxone for cystitis Review of Systems 2 Review of Systems: Gen: no fever Resp: no sob, no cough CV: no chest, no THAYER, no leg edema GI: No n/v, no abd pain :urinary retention Neuro: No confusion [facility] Medical History Bleeding hemorrhoids Cardiac pacemaker in situ Tubular adenoma of colon Prostate cancer Hypertension Family History Father Family history of Alzheimer's disease Mother Breast cancer Surgical History History of right hemicolectomy History of prostate biopsy Pacemaker H/O colonoscopy H/O hernia repair Hx of tonsillectomy Social History Household Members: Children Housing: House Unable to assess alcohol history related to: Unknown Alcohol intake: current Alcohol intake frequency: a few times a month Patient Tobacco Use Status: Current someday Tobacco user Cigarettes Per Day: 1 Use of substances other than those prescribed or required for medical reasons: No Currently Displaying Signs/Symptoms of Drug Intoxication Withdrawal: No Have you been hit, kicked, punched, or otherwise hurt by someone within the past year? If so, by whom?: No Do you feel safe in your current relationship?: Yes Is there a partner from a previous relationship who is making you feel unsafe now?: No Are you made to feel afraid or neglected: No Advance Directives: No Advance Directives Information Provided: No Do you have a plan to hurt others: No Plan Recently lost weight without trying: No How much weight loss: Not applicable Eating poorly because of decreased appetite: No Nutrition screen score: 0 Nutrition Risks: No Nutritional Risk Meds Allergies Allergy/AdvReac Type Severity Reaction Status Date / Time No Known Allergies Allergy Verified 12/08/24 11:48 [No Known Allergies*] Home Medications ?Medication ?Instructions ?Recorded ?Confirmed ?Last Taken ?Type apixaban 5 mg tablet 5 mg PO BID 05/17/20 12/08/24 12/08/24 History allopurinol 300 mg tablet 300 mg PO DAILY 12/08/24 12/08/24 12/08/24 History amlodipine 10 mg tablet 10 mg PO DAILY 12/08/24 12/08/24 12/08/24 History coal tar 2 % shampoo 1 appl topical 2XW PRN seborrheic 12/08/24 12/08/24 Unknown History dermatitis glycerin (adult) 1 supp [place] DAILY PRN Constipation 12/08/24 12/08/24 Unknown History omeprazole 20 mg capsule,delayed 20 mg PO DAILY 12/08/24 12/08/24 12/08/24 History release oxybutynin chloride 10 mg 10 mg PO DAILY 12/08/24 12/08/24 12/08/24 History tablet,extended release 24 hr sildenafil 100 mg tablet 100 mg PO DAILY PRN Sexual Activity 12/08/24 12/08/24 Unknown History Physical Exam 2 Vital Signs and Narrative: Vital Signs: Last Vital Signs Temp 97.8 F 12/08/24 11:46 Pulse 74 12/08/24 11:46 Resp 18 12/08/24 11:46 BP 137/63 12/08/24 11:46 Pulse Ox 98 12/08/24 11:46 O2 Del Method Room Air 12/08/24 11:46 BMI result Body Mass Index 32.0 Const: Other: General: AO X 3, no acute distress Resp: CTA bilateral CVS: S1,S2,RRR GI: +BS, NT, no distention Skin: No rash Neuro: motor grossly intact Psych: appropriate affect Results Labs 12/09/24 05:23 12/09/24 05:23 Labs: Laboratory Results - last 24 hr 12/08/24 12:45 MCV 93.4 MCH 30.6 MCHC 32.7 RDW 15.1 Plt Count 185 D MPV 11.0 Immature Gran % (Auto) 0.2 Neut % (Auto) 72.8 Lymph % (Auto) 13.5 L [place] % (Auto) 12.6 H Eos % (Auto) 0.7 Baso % (Auto) 0.2 Lymph # (Auto) 0.6 L [place] # (Auto) 0.6 Eos # (Auto) 0.0 Baso # (Auto) 0.0 Abs Immat Gran (auto) 0.01 Absolute Neuts (auto) 3.2 Absolute Nucleated RBC 0.000 Nucleated RBC % (auto) 0.0 Anion Gap 12 Estim Creat Clear Calc 46.5 Estimated GFR 41 Random Glucose 84 Calcium 8.9 Total Bilirubin 0.4 AST 23 ALT 16 Alkaline Phosphatase 62 Total Protein 6.2 L Albumin 3.6 Lipase 21 Urine Color Brown A Urine Appearance Turbid Urine pH 6.5 Ur Specific [place] 1.020 Urine Protein 300 (3+) H Urine Glucose (UA) 100 H Urine Ketones 15 Urine Blood Large (3+) H Urine Nitrite Positive H Ur Leukocyte Esterase Moderate (2+) H Urine RBC >20 H Urine WBC 6-10 Ur Squamous Epith Cells 11-20 Urine Bacteria Trace Hyaline Casts 0-2 Assessment and Plan (1) Urinary urgency: Status: Acute (2) Radiation cystitis: Status: Acute Plan 74-year-old male with a history of cardiac sarcoidosis with complete heart block, for which a dual-chamber pacemaker was placed in 2018. Patient was advised in 2023 to upgrade to an AICD due to episodes of non-sustained ventricular tachycardia, but he declined. His past medical history is also significant for chronic kidney disease (CKD), hyperlipidemia (HLD), hypertension (HTN), and prostate cancer status post radiation therapy, which was complicated by radiation cystitis. On eliquis for unclear reason, has gross hematuria, urinary retention and cystitis Hematuria, likely from radiation cystitis, Acute blood loss anemia continue CBI urology consult hold eliquis monitor h/h Cystitis, urine culture add Ceftriaxone HTN resume meds after med rec HLD continue statin ? use eliquis, will investigate further, he's not able to tell me CKD 3, stable Hyperkalemia, mild lokelma 5 repeat lab in the morning dvt prophylaxis--mechanical device, out of bed and ambulate full code admission for at least 2 midnights for the mangement of acute hematuria Quality Stroke Does the patient have a stroke diagnosis?: No VTE Prior VTE?: No VTE Risk Level:: Medical - moderate - high VTE Device Contraindication: N/A - Device Ordered VTE Drug Contraindication: Treatment Not Tolerated
[2024-12-08 16:13] VITALS: BP 157/72; PULSE 62; RESP 20; TEMP 36.7; O2SAT 96
--- NOTE | 2024-12-08 16:42 | PC.NURSE ---
CBI infusion stopped, per Vanessa,HVAC CONTROLS TECHNICIAN. Draining clear urine without clots. 2100mL drained from urine bag. 2000mL NS infused into irrigation port. NS bags clamped, stopper placed into irrigation port. Preparing for admission.
[2024-12-08 18:10] VITALS: BMI 31.9
[2024-12-08 18:14] VITALS: BP 132/72; PULSE 64; RESP 18; TEMP 36.4; O2SAT 94
--- NOTE | 2024-12-08 18:42 | PHA.MEDREC ---
Pharmacy Consult ? Medication Reconciliation Pharmacy has completed the medication reconciliation. Spoke with patient to go over med list from [place]. Patient was unsure on a few of the names, says he takes 6 pills in the morning, 2 bisacodyl at night with 2nd dose of Eliquis. He reports he only takes one capsule of omeprazole in the morning instead of 2 per RX. He did not recognize atorvastatin, RX reports 40 mg tabs 1/2 tab at bedtime, patient reports he does not cut any of them in half, left off of med list. Patient reports he took all of his morning medications today including the eliquis.
[2024-12-08 19:39] VITALS: BP 167/75; PULSE 63; RESP 18; TEMP 36.5; O2SAT 95
[2024-12-09] MEDS: 0.9 % Sodium Chloride Flush 3 ML SYRINGE IVFLUSH (00:05)
[2024-12-09 03:21] VITALS: BP 126/68; PULSE 67; RESP 17; TEMP 36; O2SAT 96
[2024-12-09 05:32] LABS: MANUAL DIFF FLAG NO
[2024-12-09 05:38] LABS: Basophils Percent Auto 0.2 % (0-2); Eosinophils Absolute Auto 0.1 X10*3/uL (0.0-0.4); Eosinophils Percent Auto 3.2 % (0-4); Hematocrit 26.1 % (42.0-52.0); Hemoglobin 8.7 g/dl (14.0-18.0); Imm Gran Abs Auto 0.01 X10*3/uL (0.00-0.03); Imm Gran Pct Auto 0.2 % (0.0-0.4); Lymphocytes Absolute Auto 0.7 X10*3/uL (1.2-4.9); Lymphocytes Percent Auto 15.8 % (20-40); Mean Corpuscular HGB Conc 33.3 g/dl (31.0-36.0); Mean Corpuscular Hemoglobin 31.1 pg (27.0-33.0); Mean Corpuscular Volume 93.2 fL (80.0-98.0); Mean Platelet Volume 10.6 fL (9.4-12.4); Monocytes Absolute Auto 0.6 X10*3/uL (0.1-1.2); Monocytes Percent Auto 13.6 % (2-11); Neutrophils Absolute Auto 2.8 x10*3/uL (2.0-8.3); Platelet Count 172 X10*3/uL (160-400); Red Cell Distribution Width 14.9 % (11.0-16.0); White Blood Count 4.1 X10*3/uL (4.8-10.8)
[2024-12-09 05:54] LABS: Anion Gap 10 (12-20); Blood Urea Nitrogen 24 mg/dL (9-16); Calcium 8.6 mg/dL (8.4-10.2); Carbon Dioxide 23 mmol/L (22-29); Chloride 110 mmol/L (96-108); Creatinine Clr Calc Pharmacy 52.5; Estimated Glomerular Filt Rate 47; Glucose Random 100 mg/dL (60-115); Potassium 4.4 mmol/L (3.3-5.1); Sodium 139 mmol/L (135-145)
[2024-12-09 07:07] VITALS: BP 159/77; PULSE 71; RESP 16; TEMP 36.3; O2SAT 92
--- NOTE | 2024-12-09 09:26 | P.PNIM_ITS ---
Subjective Subjective Date of Service: 12/09/24 Interval History: F/u on hematuria, CBI stopped, urine is clear and H/H is stable. Physical Exam 2 Vital Signs: Vital Signs: Last Vital Signs Temp 97.4 F 12/09/24 07:07 Pulse 71 12/09/24 07:07 Resp 16 12/09/24 07:07 BP 159/77 H 12/09/24 07:07 Pulse Ox 92 12/09/24 07:07 O2 Del Method Room Air 12/09/24 07:07 BMI result Body Mass Index 31.9 Const: Other: General: AO X 3, no acute distress Resp: CTA bilateral CVS: S1,S2,RRR GI: +BS, NT, no distention Skin: No rash Neuro: motor grossly intact Psych: appropriate affect Objective Data Active Medications Acetaminophen (Acetaminophen 325 Mg Tablet) 650 mg PO Q6H PRN PRN Reason: Pain, Mild 1-3,fever,headache Calcium Carbonate (Calcium Carbonate 750 Mg Tab.Chew) 750 mg PO Q4H PRN PRN Reason: Heartburn Ceftriaxone Sodium (Ceftriaxone Sodium 1 Gm Vial) 1 gm IVPUSH Q24H [facility] Magnesium Hydroxide (Milk Of Magnesia 30 Ml Oral.Susp) 30 ml PO DAILY PRN PRN Reason: Constipation Melatonin (Melatonin 3 Mg Tablet) 6 mg PO BEDTIME PRN PRN Reason: Insomnia Ondansetron HCl (Ondansetron Hcl 4 Mg/2 Ml Vial) 4 mg IVPUSH Q8H PRN PRN Reason: Nausea and Vomiting Polyethylene Glycol (Polyethylene Glycol 3350 17 Gm Powd.Pack) 17 gm PO DAILY PRN PRN Reason: Constipation Sodium Chloride (0.9 % Sodium Chloride Flush 3 Ml Syringe) 3 [facility] Last Admin: 12/09/24 00:05 Dose: 3 ml Documented By: NIKUNJ Labs 12/09/24 05:23 12/09/24 05:23 Labs: Laboratory Results - last 24 hr 12/08/24 12/09/24 12:45 05:23 MCV 93.4 93.2 MCH 30.6 31.1 MCHC 32.7 33.3 RDW 15.1 14.9 Plt Count 185 D 172 MPV 11.0 10.6 Immature Gran % (Auto) 0.2 0.2 Neut % (Auto) 72.8 67.0 Lymph % (Auto) 13.5 L 15.8 L [place] % (Auto) 12.6 H 13.6 H Eos % (Auto) 0.7 3.2 Baso % (Auto) 0.2 0.2 Lymph # (Auto) 0.6 L 0.7 L [place] # (Auto) 0.6 0.6 Eos # (Auto) 0.0 0.1 Baso # (Auto) 0.0 0.0 Abs Immat Gran (auto) 0.01 0.01 Absolute Neuts (auto) 3.2 2.8 Absolute Nucleated RBC 0.000 0.000 Nucleated RBC % (auto) 0.0 0.0 Anion Gap 12 10 L Estim Creat Clear Calc 46.5 52.5 Estimated GFR 41 47 Random Glucose 84 100 Calcium 8.9 8.6 Total Bilirubin 0.4 AST 23 ALT 16 Alkaline Phosphatase 62 Total Protein 6.2 L Albumin 3.6 Lipase 21 Urine Color Brown A Urine Appearance Turbid Urine pH 6.5 Ur Specific [place] 1.020 Urine Protein 300 (3+) H Urine Glucose (UA) 100 H Urine Ketones 15 Urine Blood Large (3+) H Urine Nitrite Positive H Ur Leukocyte Esterase Moderate (2+) H Urine RBC >20 H Urine WBC 6-10 Ur Squamous Epith Cells 11-20 Urine Bacteria Trace Hyaline Casts 0-2 Assessment and Plan (1) Hematuria: Status: Acute (2) Urinary urgency: Status: Acute (3) Radiation cystitis: Status: Acute Plan 74-year-old male with a history of cardiac sarcoidosis with complete heart block, for which a dual-chamber pacemaker was placed in 2018. Patient was advised in 2023 to upgrade to an AICD due to episodes of non-sustained ventricular tachycardia, but he declined. His past medical history is also significant for chronic kidney disease (CKD), hyperlipidemia (HLD), hypertension (HTN), and prostate cancer status post radiation therapy, which was complicated by radiation cystitis. On eliquis for unclear reason, has gross hematuria, urinary retention and cystitis Hematuria, likely from radiation cystitis, Acute blood loss anemia CBI stopped overnight, H/H is stable, urine is clear urology consult pending hold eliquis monitor h/h Cystitis, urine culture pending Ceftriaxone 12/08-, change to ceftin 250 bid at dc HTN resume norvasc and metoprolol HLD continue statin ? use eliquis, will investigate further, he's not able to tell me CKD 3, stable Hyperkalemia, mild, resolved after lokelma urinary urgency--oxybutynin dvt prophylaxis--mechanical device, out of bed and ambulate full code admission for at least 2 midnights for the mangement of acute hematuria Quality Stroke Does the patient have a stroke diagnosis?: No VTE Prior VTE?: No VTE Risk Level:: Medical - moderate - high VTE Device Contraindication: N/A - Device Ordered VTE Drug Contraindication: Treatment Not Tolerated
[2024-12-09] MEDS: allopurinoL 300 MG TABLET PO (10:09)
[2024-12-09] MEDS: Omeprazole 20 MG CAPSULE.DR PO (10:09)
[2024-12-09] MEDS: oxyBUTYnin chloride ER 5 MG TAB.ER.24 10 MG PO (10:09)
[2024-12-09 10:10] VITALS: BP 143/70; PULSE 62
[2024-12-09] MEDS: amLODIPine Besylate 10 MG TABLET PO (10:10)
[2024-12-09] MEDS: Metoprolol Succinate ER 50 MG TAB.ER.24H PO (10:10)
--- NOTE | 2024-12-09 12:13 | MHC.CM.PN ---
PT LIVES W/HIS CHILDREN HAS OWN RIDE HOME HIS PCP IS THRU [facility]
[2024-12-09] MEDS: cefTRIAXone sodium 1 GM VIAL IVPUSH (14:10)
[2024-12-09 16:00] VITALS: BP 115/76; PULSE 85; RESP 18; TEMP 36.6; O2SAT 95
--- NOTE | 2024-12-09 16:24 | PM.DS ---
DS: Providers Provider Date of Service: 12/09/24 Date of admission: 12/08/24 15:55 Date of discharge: 12/09/24 Primary care physician: Unknown Physician Consults: 12/09/24 09:23 Consult to Urology Routine Consulting Provider: [facility] Urology Services Reason for consultation: hematuria DS: Diagnosis Discharge Diagnosis (1) Hematuria: Status: Acute (2) Urinary urgency: Status: Acute (3) Radiation cystitis: Status: Acute DS: Summary Hospital Course Hospital Course: 74-year-old male with a history of cardiac sarcoidosis with complete heart block, for which a dual-chamber pacemaker was placed in 2018. Patient was advised in 2023 to upgrade to an AICD due to episodes of non-sustained ventricular tachycardia, but he declined. His past medical history is also significant for chronic kidney disease (CKD), hyperlipidemia (HLD), hypertension (HTN), and prostate cancer status post radiation therapy, which was complicated by radiation cystitis. On eliquis for unclear reason, has gross hematuria, urinary retention and cystitis. Patient was admitted and was on CBI which discontinued later. He continued to have intermittent bleeding from fernandes with clot. His H/H was stable with Hemoglobin of 8 unchanged. While wating for urology consultation, he elected to leave against medical advice, he was instructed to stay off eliquis and to call Dr. Arora's office in the morning for a follw up. He was to leave with fernandes in light of urinary retention and no time to do voiding trial. A prescription was sent to his pharmacy for Ceftin 250 mg twice daily for treat cystitis. At the time he was leaving, he was awake alert and oriented to self, place and time and understood that his condition can get worse, and potentially lead to life threatening condition, he went ahead and leave AMA.. Cystitis, urine culture Ceftriaxone, change to ceftin at discharge HTN resume home meds HLD continue statin ? use eliquis, advise to hold until he sees urologist CKD 3, stable Hyperkalemia, resolved with lokelma Final diagnoses: Hematuria acute blood loss anemia Urinary retention and hesitancy Cystitis Time Attestation Discharge Coordination Time (in mins): 35 Quality: Safe Use of Opioids Does Pt have an Active Cancer Diagnosis on the Problem List?: No Quality: Stroke Does the patient have a stroke diagnosis?: No Physical Exam Vital Signs: Vital Signs: Last Vital Signs Temp 97.8 F 12/09/24 16:00 Pulse 85 12/09/24 16:00 Resp 18 12/09/24 16:00 BP 115/76 12/09/24 16:00 Pulse Ox 95 12/09/24 16:00 O2 Del Method Room Air 12/09/24 16:00 BMI result Body Mass Index 31.9 Const: Other: General: AO X 3, no acute distress Resp: CTA bilateral CVS: S1,S2,RRR GI: +BS, NT, no distention Skin: No rash Neuro: motor grossly intact Psych: appropriate affect DS: Data Data Completed and Pending Labs on day of discharge: Laboratory Results - last 24 hr 12/09/24 05:23 WBC 4.1 L RBC 2.80 L Hgb 8.7 L Hct 26.1 L MCV 93.2 MCH 31.1 MCHC 33.3 RDW 14.9 Plt Count 172 MPV 10.6 Immature Gran % (Auto) 0.2 Neut % (Auto) 67.0 Lymph % (Auto) 15.8 L [place] % (Auto) 13.6 H Eos % (Auto) 3.2 Baso % (Auto) 0.2 Lymph # (Auto) 0.7 L [place] # (Auto) 0.6 Eos # (Auto) 0.1 Baso # (Auto) 0.0 Abs Immat Gran (auto) 0.01 Absolute Neuts (auto) 2.8 Absolute Nucleated RBC 0.000 Nucleated RBC % (auto) 0.0 Sodium 139 Potassium 4.4 Chloride 110 H Carbon Dioxide 23 Anion Gap 10 L BUN 24 H Creatinine 1.47 H Estim Creat Clear Calc 52.5 Estimated GFR 47 Random Glucose 100 Calcium 8.6 Preliminary micro results at discharge 12/08/24 13:38 Blood Culture - Preliminary Blood - Venous No growth after 24 hours. 12/08/24 13:23 Blood Culture - Preliminary Blood - Venous No growth after 24 hours. 12/08/24 Unknown Urine Culture - Preliminary Urine clean catch - Clean Catch Midstream Culture in progress. Discharge Plan Discharge Anticipated Discharge Date/Time: 12/09/24 16:04 Patient Disposition: Left Against Medical Advice Discharge Diagnosis: hematuria Referrals: Physician,Unknown J [Primary Care Provider] - 1 Week Discharge Medications: New cefuroxime axetil 250 mg tablet 250 mg PO BID 7 Days Qty: 14 0RF Continued metoprolol succinate 50 mg tablet extended release 24 hr 50 mg PO DAILY Qty: 90 3RF oxybutynin chloride 10 mg Tablet Extended Release 24hr 10 mg PO DAILY sildenafil 100 mg Tablet 100 mg PO DAILY PRN (Reason: Sexual Activity) coal tar 2 % Shampoo 1 appl TOPICAL 2XW PRN (Reason: seborrheic dermatitis) amlodipine 10 mg Tablet 10 mg PO DAILY omeprazole 20 mg Capsule,Delayed Release(Dr/Ec) 20 mg PO DAILY allopurinol 300 mg Tablet 300 mg PO DAILY glycerin (adult) Suppository 1 supp [place] DAILY PRN (Reason: Constipation) Metamucil (with sugar) 3.4 gram/7 gram powder 1 tbsp PO DAILY Qty: 822 2RF bisacodyl [Dulcolax (bisacodyl)] 5 mg tablet,delayed release (DR/EC) 10 mg PO BEDTIME Qty: 180 4RF Discontinued apixaban 5 mg tablet 5 mg PO BID Discharge Orders: Discharge Order (Routine); Ordered 12/09/24 Ordered By: Filiberto Mena Diet: Advance to usual diet Activity on Discharge: As tolerated Print Language: Japanese Care Plan Goals: Addressing hematuria, cystitis Health Concerns: hematuria, cystitis Plan of Treatment: take cefuroxime as directed for cystitis follow up with Dr. Arora, call office as soon as tomorrow morning do not take eliquis until ok with Dr. Arora Assessment: see supa Discharge Date/Time: 12/09/24 16:05
== END 2024-12-09 16:05 | disposition left against medical advice (07) | DRG 699 ==
LOC: HO.ED 13:07 → HO.EDOVER 16:03 → HO.S3 16:15
PROVIDERS: Physician Assistant; Admitting Provider Internal Medicine; Emergency Provider Emergency Medicine; Visit Provider Internal Medicine
DX: N30.41 Irradiation cystitis with hematuria (principal); D62 Acute posthemorrhagic anemia; I44.2 Atrioventricular block, complete; D86.89 Sarcoidosis of other sites; F17.210 Nicotine dependence, cigarettes, uncomplicated; I12.9 Hypertensive chronic kidney disease with stage 1 through stage 4 chronic kidney disease, or unspecified chronic kidney disease; N18.30 Chronic kidney disease, stage 3 unspecified; E78.5 Hyperlipidemia, unspecified; E87.5 Hyperkalemia; Z95.0 Presence of cardiac pacemaker; Z85.46 Personal history of malignant neoplasm of prostate; Z71.6 Tobacco abuse counseling; Z79.01 Long term (current) use of anticoagulants; Z79.899 Other long term (current) drug therapy
CPT/HCPCS: 36415; 80048; 80053; 81001; 83690; 85025; 87040; 87086; 99285; J0696

== ENCOUNTER → 2024-12-08 15:55 | Outpatient (BNV) | payer OTHER, SELFPAY | PROVIDERS: Admitting Provider Internal Medicine; Emergency Provider Emergency Medicine; Visit Provider Internal Medicine | DX: R31.9 Hematuria, unspecified (principal); R39.15 Urgency of urination; N30.40 Irradiation cystitis without hematuria | CPT/HCPCS: 99223; 99239; 99499 ==

== ENCOUNTER 2024-12-17 10:37 | Outpatient (REF) | payer OTHER, SELFPAY ==
[2024-12-17 12:24] LABS: Prostate Specific Antigen 0.45 ng/mL (<0.05-4.0)
== END 2024-12-17 10:38 | disposition home or self-care (01) ==
LOC: HO.LAB 10:37
PROVIDERS: Visit Provider Urology
DX: Z85.46 Personal history of malignant neoplasm of prostate (principal); Z12.5 Encounter for screening for malignant neoplasm of prostate
CPT/HCPCS: 36415; 84153

== ENCOUNTER 2024-12-19 15:06 | Outpatient (AMB) | payer OTHER, SELFPAY ==
--- NOTE | 2024-12-19 15:21 | A.OFFVIS_ITS ---
Intake Visit Reasons: f/u psa/blood in urine(psa?) Intake Note: Patient is present for PSA/BLOOD IN URINE Urology Medication:SILDENAFIL,OXYBUTYNIN,ALLOPURINOL Antibiotic Allergy:NONE Blood Thinner:NONE Import Clerk Required: No Allergies No Known Allergies [No Known Allergies*] Allergy (Verified 12/19/24 15:23) HPI Comments Details: Carlos Enrique is a pleasant male. He is a patient of Dr. Poole. He is seen for the following urologic conditions - prostate cancer - radiation cystitis Three-month follow-up PSA stabilized Pushed out to six-month interval Did have some blood per rectum but that was secondary to constipation. No using MiraLax and things have resolved PSA 02/03 0.2, 11/04 0.26, 04/07 0.3, 10/09 0.3, 01/06 0.5 Radiation cystitis Presentation with intermittent hematuria Failed oxybutynin previously Prostate cancer - grade group 4 EXBRT [address] Gan PSA 11.2 Initial biopsy demonstrated Royer 6, 7, 8 and 9 Underwent external beam radiation at [facility] with 18 months GnRH hormones Imaging - initial bone scan and CT scan showed no steven disease PFSH Medical History Bleeding hemorrhoids Cardiac pacemaker in situ Tubular adenoma of colon Prostate cancer Hypertension Surgical History History of right hemicolectomy History of prostate biopsy Pacemaker H/O colonoscopy H/O hernia repair Hx of tonsillectomy Family History Father Family history of Alzheimer's disease Mother Breast cancer Social History Household Members: Children Housing: House Unable to assess alcohol history related to: Unknown Alcohol intake: current Alcohol intake frequency: a few times a month Patient Tobacco Use Status: Current someday Tobacco user Cigarettes Per Day: 1 service: No Assessment & Plan Assessment & Plan Orders: Orders Prostate Specific Antigen 6 Months C61 - Malignant neoplasm of prostate AMB Urinalysis Automated Today Z13.9 - Encounter for screening, unspecified Coding
--- OUTSIDE RECORDS SUMMARY | 2024-12-19 16:06 | XMS_ITS | Encounter Summary ---
Author Name [facility] [place] Organization [facility] [place] [facility] [place] Address [address] [place] [address] Care Team Providers Care Wind Technician Name Role Phone PRIYANKA GUEVARA Primary Care [...] PART A May 15, 2015 PART A [id number] KINJAL LAW SR PATIENT MEDICARE (WNR) MEDICARE (M) PART A May 15, 2015 PART A [id number] KINJAL LAW SR PATIENT Selected Encounter This section includes the information on record at [place] for the Encounter. Date/Time Encounter Type Encounter Description Reason Pro vider Source December 17, 2024 09:59 AM Outpatient Encounter PRIMARY CARE/MEDICINE IHE Encounter Template Text not used by VA Plan of Treatment: Future Appointments (+ 6 months) and Future Tests (+/- 45 days) The Plan of Treatment section includes future care activities for the patient [facility] [place] [facility] This section includes future appointments and future orders which are active, pending or scheduled. Future Appointments This section includes appointments that were scheduled to occur 6 months from the date of the Encounter, up to a maximum of 20 appointments. The data comes from all [place] treatment facilities. Appointment Date/Time Appointment Type Appointme nt Facility Name January 09, 2025 10:00 AM AMBULATORY - MEDICINE [facility] Mar 18, 2025 09:30 AM AMBULATORY - MEDICINE [facility] Mar 20, 2025 01:00 PM AMBULATORY - MEDICINE [facility] Active, Pending, and Scheduled Orders This section includes a listing of several types of active, pending, and scheduled orders, including clinic medications orders, diagnostic test orders, procedure orders and consult orders; where the start date of the order is 45 days before the date of the Encounter or 45 days after the date of theEncounter. The data comes from all [facility]. Test Date/Time Test Type Test Details Facility Name Nov 13, 2024 01:37 PM Consult Order COMMUNITY CARE-DENTAL GENERAL Cons Ultrasound Applications Specialist's Choice [facility] Social History: Smoking Status [...] Current Smoking Status Comment Davey clifford Sep 17, 2024 10:04 AM VA-TOBACCO USE BOB RY DAY CIGARETTES [facility] Tobacco Use History This section includes a history of the smoking, or tobacco-related health factors, that were collected on or before the date of the Encounter. The data comes from the [place] facility where the Encounter took place. Date/Time Smoking Status/Tobac co Use Comment Facility Sep 17, 2024 10:04 AM [place]-TOBACCO USE EVERY DAY [facility] Sep 14, 2023 10:00 AM [place]-TOBACCO DOESNT USE WI 30 MIN [facility]UP [facility] Sep 14, 2023 10:00 AM VA-TOBACCO USE 30 YEARS OR MORE [facility] [place] [facility] Sep 14, 2023 10:00 AM VA-TOBACCO USE ADVICE [facility] [place] [facility] Sep 14, 2023 10:00 AM VA-TOBACCO USE REGIONAL LIAISON NO [facility] [place] [facility] Sep 14, 2023 10:00 AM VA-TOBACCO USE MED NO [facility] [place] [facility] Sep 14, 2023 10:00 AM VA-TOBACCO USER EVERY DAY [facility] [place] [facility] Aug 02, 2022 01:11 PM VA-TOBACCO USE 30 YEARS OR MORE [facility] [place] [facility] Aug 02, 2022 01:11 PM VA-TOBACCO USE ADVICE [facility] [place] [facility] Aug 02, 2022 01:11 PM VA-TOBACCO USE REGIONAL LIAISON NO [facility] [place] [facility] Aug 02, 2022 01:11 PM VA-TOBACCO USE MED NO [facility] [place] [facility] Aug 02, 2022 01:11 PM VA-TOBACCO USE WI 30 MIN OF WAKEUP [facility] [place] [facility] Aug 02, 2022 01:11 PM VA-TOBACCO USER EVERY DAY [facility] [place] [facility] Jul 28, 2021 11:21 AM VA-TOBACCO USE 30 YEARS OR MORE [facility] [place] [facility] Jul 28, 2021 11:21 AM VA-TOBACCO USE ADVICE [facility] [place] [facility] Jul 28, 2021 11:21 AM VA-TOBACCO USE REGIONAL LIAISON NO [facility] [place] [facility] Jul 28, 2021 11:21 AM VA-TOBACCO USE MED NO [facility] [place] [facility] Jul 28, 2021 11:21 AM VA-TOBACCO USE WI 30 MIN OF WAKEUP [facility] [place] [facility] Jul 28, 2021 11:21 AM VA-TOBACCO USER EVERY DAY [facility] [place] [facility] Jun 04, 2020 01:59 PM VA-TOBACCO USE 30 YEARS OR MORE [facility] [place] [facility] Jun 04, 2020 01:59 PM VA-TOBACCO USE ADVICE [facility] Jun 04, 2020 01:59 PM VA-TOBACCO USE [facility] Jun 04, 2020 01:59 PM [facility]ACCO USE MED NO [facility] Jun 04, 2020 01:59 PM VA-TOBACCO USE WI 30 MIN OF WAKEUP [facility] Jun 04, 2020 01:59 PM VA-TOBACCO USER EVERY DAY [facility] Mar 30, 2016 10:35 AM CURRENT SMOKER smokes about 1 pack every 3 days for about 45 years [facility] Radiology Reports: +/- 30 days [...] the Encounter. The data comes from all [place] treatment facilities. Date/Time Radiology Report Provider Source Nov 26, 2024 09:35 AM LDCT LUNG CANCER SCREENING: LAWKINJAL [id number] -1950 M Exm Date: NOV 26, 2024@09:35 Req Phys: PRIYANKA GUEVARA Pat Loc: [facility] PACT EIGHT (Req'g Lo Img Loc: [facility]/CT Service: [place] [address] (Case 16 COMPLETE) LDCT LUNG CANCER SCREENING (CT Detailed) CPT:53810 Proc Modifiers : BILATERAL EXAM Reason for Study: Active smoker Clinical History: More than 20 pack years 12 months follow-up, overdue Report Status: Verified Date Reported: NOV 26, 2024 Date Verified: NOV 26, 2024 Still Operator Helper E-Sig:/ES/STEPAHNIE KONG Report: EXAM: CT THORAX LUNG CANCER [...] Primary Interpreting Staff: STEPHANIE KONG, Staff Physician (Still Operator Helper) /STEPHANIE [facility]LEX[facility]DRA [facility] Encounter Notes: All associated encounter notes This section contains the clinical notes associated to the Encounter. Date/Time Encounter Note(s) Provider Source December 17, 2024 09:59 AM NONVA NOTE: LOCAL TITLE: NON-VA HOSPITALIZATIONS/ER STANDARD TITLE: NONVA NOTE DATE OF NOTE: DECEMBER 17, 2024@09:59 ENTRY DATE: DECEMBER 17, 2024@09:59:42 AUTHOR: POPEYE BENEDICT COSIGNER: URGENCY: STATUS: COMPLETED NON VA DISCHARGE SUMMARY This data contains relevant information copied & pasted from a NON VA source. Efforts are made to ensure congruency between this note & the original. This note not DOES NOT contain the entirety of the original. Please see [employer] to view the original note/document. Place of Service: [facility] Admission Date: Nov Discharge Date: Nov Discharged to: Home Discharge Diagnosis: Hematuria Urinary urgency radiation cystitis Patient disposition: Left Against Medical Advice Plan of Treatment: take cefuroxime as directed for cystitis follow up with Dr Arora, call office as soon as tomorrow morning do not take eleiquis until ok with Dr Arora Upcoming Appointments: 01/09/2025 10:00 [facility] PACT EIGHT 03/18/2025 09:30 [facility] PACT 7 COORDINATING PRODUCER 03/20/2025 13:00 [facility] OPTOMETRY 1 PM Record sent to PACT pcp to review rightfax folder and then will be forwarded to scanning This note is entered for the sole purpose of scanning Non-VA documentation into [employer]. /subhash/ CARLA KEENANN RN-BC REGISTERED NURSE Signed: 12/17/2024 10:03 POPEYE BENEDICT
--- OUTSIDE RECORDS SUMMARY | 2024-12-19 16:06 | XMS_ITS | Encounter Summary ---
Author Name [facility] [place] Organization [facility] [place] Address [address] [place] [address] Care Team Providers Care Inspector And Hand Packager Name Role Phone PRIYANKA GUEVARA Primary Care [...] PART A May 15, 2015 PART A [id number] KINJAL LAW SR PATIENT MEDICARE (WNR) MEDICARE (M) PART A May 15, 2015 PART A [id number] [phone] [id number] KINJAL LAW SR PATIENT Selected Encounter This section includes the information on record at VA for the Encounter. Date/Time Encounter Type Encounter Description Reason Provider Source Dec 12, 2024 09:30 AM OFF/OP EST DECEMBER X REQ PHY/QHP PRIMARY CARE/MEDICINE ICD-10-CM R68.89 Other general symptoms and signs LB SANCHEZ Encounter Template Text not used by VA Assessments - Encounter Diagnoses This section includes the primary and secondary diagnoses documented for the Encounter. Date/Time Primary/Secondary Diagnosis Diagnosis Name Provider Source December 13, 2024 09:19 AM PRIMARY Other general symptoms and signs LB SANCHEZ Plan of Treatment: Future Appointments (+ 6 [...] 09, 2025 10:00 AM AMBULATORY - MEDICINE [facility] Mar 18, 2025 09:30 AM AMBULATORY - MEDICINE [facility] Mar 20, 2025 01:00 PM AMBULATORY MEDICINE [facility] [place] [facility] Active, Pending, and Scheduled Orders This section includes a listing of several types of active, pending, and scheduled orders, including clinic medications orders, diagnostic test orders, procedure orders and consult orders; where the start date of the order is 45 days before the date of the Encounter or 45 days after the date of theEncounter. The data comes from all [facility]. Test Date/Time Test Type Test Details Facility Name Nov 13, 2024 01:37 PM Consult Order COMMUNITY CARE-DENTAL GENERAL Cons Tentering Machine Feeder's Choice [place] [facility] [facility] Vital Signs: All taken on the encounter date This section contains inpatient and outpatient Vital Signs collected on the date of the Encounter. Date/Time Temperature Pulse Blood Pressure Respiratory Rate SP02 Pain Height Weight Body Mass Index Source Dec 12, 2024 10:15 AM 98.2 77 138/70 16 98 3 [place] Social History: Smoking Status (Most current) [...] Date/Time Current Smoking Status Comment Davey vinson Nov 01, 2024 03:30 PM VA-TOBACCO SCREEN FOLLOW-UP [facility] Tobacco Use History This section includes a history of the smoking, or tobacco-related health factors, that were collected on or before the date of the Encounter. The data comes from the [place] facility where the Encounter took place. Date/Time Smoking Status/Tobacco Use Comment F acility Nov 01, 2024 03:30 PM VA-TOBACCO USE ADVICE [facility] Nov 01, 2024 03:30 PM VA-TOBACCO USE TOE POUNDER NO [facility] Nov 01, 2024 03:30 PM VA-TOBACCO USE MED NO [facility] Sep 17, 2024 10:00 AM VA-TOBACCO SCREEN FOLLOW-UP [facility] Sep 17, 2024 10:00 AM VA-TOBACCO USE ADVICE [facility] Sep 17, 2024 10:00 AM VA-TOBACCO USE TOE POUNDER NO [facility] Sep 17, 2024 10:00 AM VA-TOBACCO USE MED NO [facility] Feb 01, 2019 08:32 AM VA-TOBACCO DOESNT USE WI 30 MIN [facility] Feb 01, 2019 08:32 AM VA-TOBACCO USE 30 YEARS OR MORE [facility] Feb 01, 2019 08:32 AM VA-TOBACCO USE ADVICE [facility] Feb 01, 2019 08:32 AM VA-TOBACCO USE TOE POUNDER NO [facility] Feb 01, 2019 08:32 AM VA-TOBACCO USE MED NO [facility] Feb 01, 2019 08:32 AM VA-TOBACCO USER EVERY DAY [facility] Nov 14, 2017 09:03 AM VA-TOBACCO DOESNT USE WI 30 MIN [facility] Nov 14, 2017 09:03 AM VA-TOBACCO USE 30 YEARS OR MORE [facility] Nov 14, 2017 09:03 AM VA-TOBACCO USE ADVICE [facility] Nov 14, 2017 09:03 AM VA-TOBACCO USE TOE POUNDER NO [facility] Nov 14, 2017 09:03 AM VA-TOBACCO USE MED NO [facility] Nov 14, 2017 09:03 AM VA-TOBACCO USER EVERY DAY [facility] May 16, 2017 10:14 AM CURRENT SMOKER ~3 cigarettes per day [facility] May 16, 2017 10:14 AM V1-PT NOT INTEREST ED IN QUIT TOBACCO USE [facility] Nov 01, 2016 09:00 AM CURRENT SMOKER [facility] Nov 01, 2016 09:00 AM V1-PT NOT INTEREST ED IN QUIT TOBACCO USE [facility] May 03, 2016 01:05 PM V1-PT DECLINES REF TO TOBACCO CESS PRGM [facility] May 03, 2016 01:05 PM V1-PT DECLINES TOB ACCO CESSATION MEDS [facility] May 03, 2016 01:05 PM V1-PT THINKING ABO UT QUIT TOBACCO USE [facility] Feb 19, 2014 08:45 AM V1-PT DECLINES REF TO TOBACCO CESS [facility] Feb 19, 2014 08:45 AM V1-PT DECLINES TOB ACCO CESSATION [facility] Feb 19, 2014 08:45 AM V1-PT THINKING ABO UT QUIT TOBACCO USE [facility] Jun 04, 2013 08:39 AM CURRENT SMOKER smokes a pack of cigaretts a week. [facility] Jun 04, 2013 08:39 AM V1-PT DECLINES REF TO TOBACCO CESS [facility] Jun 04, 2013 08:39 AM V1-PT DECLINES TOB ACCO CESSATION [facility] Jun 04, 2013 08:39 AM V1-PT THINKING ABO UT QUIT TOBACCO USE [facility] Aug 28, 2012 09:51 AM V1-PT DECLINES REF TO TOBACCO CESS [facility] Aug 28, 2012 09:51 AM V1-PT DECLINES TOB ACCO CESSATION [facility] Aug 28, 2012 09:51 AM V1-PT READY TO CARIDAD T TOBACCO USE [facility] January 03, 2012 08:39 AM CURRENT SMOKER [facility] January 03, 2012 08:39 AM V1-PT DECLINES REF TO TOBACCO CESS [facility] January 03, 2012 08:39 AM V1-PT DECLINES TOB ACCO CESSATION [facility] January 03, 2012 08:39 AM V1-PT THINKING ABO UT QUIT TOBACCO USE [facility] Jul 22, 2011 08:19 AM V1-PT DECLINES REF TO TOBACCO CESS [facility] Jul 22, 2011 08:19 AM V1-PT DECLINES TOB ACCO CESSATION [facility] Jul 22, 2011 08:19 AM V1-PT NOT INTEREST ED IN QUIT TOBACCO USE [facility] Jan 25, 2011 08:38 AM CURRENT SMOKER [facility] Jan 25, 2011 08:38 AM V1-PT DECLINES REF TO TOBACCO CESS [facility] Jan 25, 2011 08:38 AM V1-PT DECLINES TOB ACCO CESSATION [facility] Jan 25, 2011 08:38 AM V1-PT THINKING ABO UT QUIT TOBACCO USE [facility] Sep 03, 2009 12:43 PM CURRENT SMOKER advise stop [facility] Sep 03, 2009 12:43 PM V1-PT DECLINES REF TO TOBACCO CESS [facility] Sep 03, 2009 12:43 PM V1-PT DECLINES TOB ACCO CESSATION [facility] Sep 03, 2009 12:43 PM V1-PT NOT INTEREST ED IN QUIT TOBACCO USE [facility] Jun 28, 2008 11:28 AM V1-PT DECLINES REF TO TOBACCO CESS [facility] Jun 28, 2008 11:28 AM V1-PT DECLINES TOB ACCO CESSATION MEDS [facility] Jun 28, 2008 11:28 AM V1-PT NOT INTEREST ED IN QUIT TOBACCO USE [facility] Jun 28, 2008 09:31 AM CURRENT SMOKER 5-6 cigarettes/day [facility] Mar 18, 2005 09:38 AM CURRENT SMOKER [facility] December 28, 2001 08:58 AM CURRENT SMOKER Patient states he has smoked from age 16-present, 1/2 pk cigarettes daily. [facility] Radiology Reports: +/- 30 days of the [...] the Encounter. The data comes from all [place] treatment facilities. Date/Time Radiology Report Provider Source Nov 26, 2024 09:35 AM LDCT LUNG CANCER SCREENING: LAWKINJAL [id number] -1950 M Exm Date: NOV 26, 2024@09:35 Req Phys: PRIYANKA GUEVARA Pat Loc: [facility] PACT EIGHT (Req'g Lo Img Loc: [facility]/CT Service: [place] [address] (Case 16 COMPLETE) LDCT LUNG CANCER SCREENING (CT Detailed) CPT:48133 Proc Modifiers : BILATERAL EXAM Reason for Study: Active smoker Clinical History: More than 20 pack years 12 months follow-up, overdue Report Status: Verified Date Reported: NOV 26, 2024 Date Verified: NOV 26, 2024 Linux Administrator E-Sig:/ES/STEPHANIE KONG Report: EXAM: CT THORAX LUNG CANCER [facility] C- ADDITIONAL HISTORY: Reason for [...] Primary Interpreting Staff: STEPHANIE KONG, Staff Physician (Linux Administrator) /STEPHANIE ALEXANDRA [facility] Encounter Notes: All associated encounter notes This section contains the clinical notes associated to the Encounter. Date/Time Encounter Note(s) Provider Source Dec 12, 2024 10:18 AM PRIMARY CARE NOTE: LOCAL TITLE: WALK-IN NOTE PRIMARY CARE (T) STANDARD TITLE: PRIMARY CARE NOTE DATE OF NOTE: DEC 12, 2024@10:18 ENTRY DATE: DEC 12, 2024@10:19:03 AUTHOR: LB SANCHEZ COSIGNER: URGENCY: STATUS: COMPLETED Data: 74year old MALE reports to Primary Care clinic for Walk-In visit. 's PCP is PRIYANKA GUEVARA Today Vet walks in to clinic with complaint of catheter leaking Last recorded Vital Signs are: Temperature:98.2 F [36.8 C] (12/12/2024 10:15) Pulse:77 (12/12/2024 10:15) Blood Pressure:138/70 (12/12/2024 10:15) Respiration:16 (12/12/2024 10:15) Pain:3 (12/12/2024 10:15) Vet reports current allergies are: Remote Allergy Data No Remote Allergy/ADR Data available for this patient Current Medications from Active Med list include: Active Outpatient Medications (including Supplies): Active Outpatient Medications Status ====== 1) ALLOPURINOL 300MG TAB TAKE ONE TABLET [...] BEDTIME ACTIVE FOR BOWELS - LAXATIVE 6) CEFUROXIME AXETIL 250MG TAB TAKE ONE TABLET BY MOUTH TWICE ACTIVE DAILY 7) COAL TAR 2% SHAMPOO SUFFICIENT AMOUNT TOPICALLY ACTIVE TWICE A WEEK NEEDED Indication: FOR SEBORRHEIC DERMATITIS 8) GLYCERIN (ADULT) RTL SUPP INSERT 1 SUPPOSITORY RECTALLY ONCE ACTIVE DAILY Indication: FOR CONSTIPATION 9) METOPROLOL SUCCINATE 50MG SA TAB TAKE ONE TABLET BY MOUTH ACTIVE ONCE DAILY FOR BLOOD PRESSURE/HEART 10) OMEPRAZOLE 20MG EC CAP TAKE TWO CAPSULES BY MOUTH ONCE DAILY ACTIVE 11) OXYBUTYNIN CHLORIDE 10MG SA TAB TAKE ONE TABLET BY MOUTH ACTIVE ONCE DAILY FOR BLADDER INSTABILITY Indication: FOR FREQUENT URINATION 12) PSYLLIUM ORAL PWD TAKE 1 TABLESPOONFUL BY MOUTH ONCE DAILY ACTIVE (MIX WITH AT LEAST 8OZ. OF WATER OR OTHER FLUID) 13) SILDENAFIL CITRATE 100MG TAB TAKE ONE TABLET BY MOUTH ONCE ACTIVE DAILY NEEDED TAKE 1 HOUR PRIOR TO SEXUAL ACTIVITY Indication: FOR ERECTILE DYSFUNCTION Action: [place] returns to sick call with reports of catheter bag leaking States has been taking antibiotic as order States [facility] called and told him to leave catheter in place until seen on 12/19/24 urology appointment Reports urine has been clear. urine bag empty, noted with urine in grocery bag. clamp not functioning well New bag replaced. Educated on care and maintenence Educated on proper placement and the use of the securement device Advised to RTC with any other concern [place] verbalized understanding Reminders Medication Reconciliation DUE NOW RSV Immunization DUE NOW (Optional) Whole Health Documentation DUE NOW /subhash/ LB SANCHEZ RN PRIMARY CARE RN Signed: 12/12/2024 10:32 LB SANCHEZ [facility]
--- OUTSIDE RECORDS SUMMARY | 2024-12-19 16:06 | XMS_ITS | Encounter Summary ---
Author Name [facility] [place] [facility] [place] Organization [facility] [place] Address [address] [place] [address] Care Team Providers Care Group Dynamics Instructor Name Role Phone PRIYANKA GUEVARA Primary Care [...] PART A May 15, 2015 PART A [id number] A KINJAL LAW SR PATIENT MEDICARE (WNR) MEDICARE (M) PART A May 15, 2015 PART A [id number] KINJAL LAW SR PATIENT Selected Encounter This section includes the information on record at [place] for the Encounter. Date/Time Encounter Type Encounter Description Reason Pro vider Source IHE Encounter Template Text not used by VA
--- OUTSIDE RECORDS SUMMARY | 2024-12-19 16:06 | XMS_ITS | Encounter Summary ---
Author Name [facility] [place] [facility] [place] Address [address] [place] [address] Care Team Providers Care Manager News Name Role Phone PRIYANKA GUEVARA Primary Care [...] PART A May 15, 2015 PART A [id number] KINJAL LAW SR PATIENT MEDICARE (WNR) MEDICARE (M) PART A May 15, 2015 PART A [id number] KINJAL LAW SR PATIENT Selected Encounter This section includes the information on record at [facility] for the Encounter. Date/Time Encounter Type Encounter Description Reason Provider Source Dec 10, 2024 10:15 AM OFF/OP EST DECEMBER X REQ PHY/QHP PRIMARY CARE/MEDICINE ICD-10-CM R68.89 Other general symptoms and signs LB ASNCHEZ Encounter Template Text not used by [facility] Assessments - Encounter Diagnoses This section includes the primary and secondary diagnoses documented for the Encounter. Date/Time Primary/Secondary Diagnosis Diagnosis Name Provider Source Dec 12, 2024 10:31 AM PRIMARY Other general symptoms and signs LB SANCHEZ RUDOLPH Dec 12, 2024 10:31 AM SECONDARY Gross hematuria LB SANCHEZ [facility] Plan of Treatment: Future Appointments (+ 6 months) and Future Tests (+/- 45 days) The Plan of Treatment section includes future care activities for the [facility] [place] [facility] This section includes future appointments [...] 12, 2024 09:30 AM AMBULATORY - MEDICINE [facility] January 09, 2025 10:00 AM AMBULATORY - MEDICINE [facility] Mar 18, 2025 09:30 AM AMBULATORY - MEDICINE [facility] Mar 20, 2025 01:00 PM [facility]BULATORY - MEDICINE [facility] Active, Pending, and Scheduled Orders This section includes a listing of several types of active, pending, and scheduled orders, including clinic medications orders, diagnostic test orders, procedure orders and consult orders; where the start date of the order is 45 days before the date of the Encounter or 45 days after the date of the Encounter. The data comes from all [facility]. Test Date/Time Test Type Test Details Facility Name Nov 13, 2024 01:37 PM Consult Order [facility] Cons Rn Disease Management's Choice [place] [facility] Vital Signs: All taken on the encounter date This section contains inpatient and outpatient Vital Signs collected on the date of the Encounter. Date/Time Temperature Pulse Blood Pressure Respiratory Rate SP02 Pain Height Weight Body Mass Index Source Dec 10, 2024 10:33 AM 97.6 68 154/79 20 97 0 [place] Social History: Smoking Status (Most current) [...] Date/Time Current Smoking Status Comment Facil ity Nov 01, 2024 03:30 PM VA-TOBACCO SCREEN FOLLOW-UP [facility] Tobacco Use History This section includes a history of the smoking, or tobacco-related health factors, that were collected on or before the date of the Encounter. The data comes from the [place] facility where the Encounter took place. 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 [facility] Sep 17, 2024 10:00 AM VA-TOBACCO USE MED NO [facility] Feb 01, 2019 08:32 AM VA-TOBACCO DOESNT USE WI 30 MIN WAKEUP [facility] Feb 01, 2019 08:32 AM VA-TOBACCO USE 30 YEARS OR MORE [facility] Feb 01, 2019 08:32 AM VA-TOBACCO USE ADVICE [facility] Feb 01, 2019 08:32 AM 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 [facility] Feb 01, 2019 08:32 AM VA-TOBACCO USE MED NO [facility] Feb 01, 2019 08:32 AM VA-TOBACCO USER EVERY DAY [facility] Nov 14, 2017 09:03 AM VA-TOBACCO DOESNT USE WI 30 MIN WAKEUP [facility] Nov 14, 2017 09:03 AM VA-TOBACCO USE 30 YEARS OR MORE [facility] Nov 14, 2017 09:03 AM VA-TOBACCO USE ADVICE [facility] Nov 14, 2017 09:03 AM 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 [facility] Nov 14, 2017 09:03 AM VA-TOBACCO USE MED NO [facility] Nov 14, 2017 09:03 AM VA-TOBACCO USER EVERY DAY [facility] May 16, 2017 10:14 AM CURRENT SMOKER ~3 cigarettes per day [facility] May 16, 2017 10:14 AM V1-PT NOT INTEREST ED IN QUIT TOBACCO USE [facility] Nov 01, 2016 09:00 AM CURRENT SMOKER [facility] Nov 01, 2016 09:00 AM V1-PT NOT INTEREST ED IN QUIT TOBACCO USE [facility] May 03, 2016 01:05 PM V1-PT DECLINES REF TO TOBACCO CESS [facility] May 03, 2016 01:05 PM V1-PT DECLINES TOB ACCO CESSATION [facility] May 03, 2016 01:05 PM V1-PT THINKING ABO UT QUIT TOBACCO USE [facility] Feb 19, 2014 08:45 AM V1-PT DECLINES REF TO TOBACCO CESS [facility] Feb 19, 2014 08:45 AM V1-PT DECLINES TOB ACCO CESSATION [facility] Feb 19, 2014 08:45 AM V1-PT THINKING ABO UT QUIT TOBACCO USE [facility] Jun 04, 2013 08:39 AM CURRENT SMOKER smokes a pack of cigaretts a week. [facility] Jun 04, 2013 08:39 AM V1-PT DECLINES REF TO TOBACCO CESS [facility] Jun 04, 2013 08:39 AM V1-PT DECLINES TOB ACCO CESSATION [facility] Jun 04, 2013 08:39 AM V1-PT THINKING ABO UT QUIT TOBACCO USE [facility] Aug 28, 2012 09:51 AM V1-PT DECLINES REF TO TOBACCO CESS [facility] Aug 28, 2012 09:51 AM V1-PT DECLINES TOB ACCO CESSATION [facility] Aug 28, 2012 09:51 AM V1-PT READY TO CARIDAD T TOBACCO USE [facility] January 03, 2012 08:39 AM CURRENT SMOKER [facility] January 03, 2012 08:39 AM V1-PT DECLINES REF TO TOBACCO CESS [facility] January 03, 2012 08:39 AM V1-PT DECLINES TOB ACCO CESSATION [facility] January 03, 2012 08:39 AM V1-PT THINKING ABO UT QUIT TOBACCO USE [facility] Jul 22, 2011 08:19 AM V1-PT DECLINES REF TO TOBACCO CESS [facility] Jul 22, 2011 08:19 AM V1-PT DECLINES TOB ACCO CESSATION [facility] Jul 22, 2011 08:19 AM V1-PT NOT INTEREST ED IN QUIT TOBACCO USE [facility] Jan 25, 2011 08:38 AM CURRENT SMOKER [facility] Jan 25, 2011 08:38 AM V1-PT DECLINES REF TO TOBACCO CESS [facility] Jan 25, 2011 08:38 AM V1-PT DECLINES TOB ACCO CESSATION [facility] Jan 25, 2011 08:38 AM V1-PT THINKING ABO UT QUIT TOBACCO USE [facility] Sep 03, 2009 12:43 PM CURRENT SMOKER advise stop [facility] Sep 03, 2009 12:43 PM V1-PT DECLINES REF TO TOBACCO CESS [facility] Sep 03, 2009 12:43 PM V1-PT DECLINES TOB ACCO CESSATION MEDS [facility] Sep 03, 2009 12:43 PM V1-PT NOT INTEREST ED IN QUIT TOBACCO USE [facility] Jun 28, 2008 11:28 AM V1-PT DECLINES REF TO TOBACCO CESS [facility] Jun 28, 2008 11:28 AM V1-PT DECLINES TOB ACCO CESSATION MEDS [facility] Jun 28, 2008 11:28 AM V1-PT NOT INTEREST ED IN QUIT TOBACCO USE [facility] Jun 28, 2008 09:31 AM CURRENT SMOKER 5-6 cigarettes/day [facility] Mar 18, 2005 09:38 AM CURRENT SMOKER [facility] December 28, 2001 08:58 AM CURRENT SMOKER Patient states he has smoked from age 16-present, 1/2 pk cigarettes daily. [facility] Radiology Reports: +/- 30 days of the [...] the Encounter. The data comes from all [place] treatment facilities. Date/Time Radiology Report Provider Source Nov 26, 2024 09:35 AM LDCT LUNG CANCER SCREENING: KINJAL LAW [id number] -[id number] M Exm Date: NOV 26, 2024@09:35 Req Phys: PRIYANKA GUEVARA Pat Loc: [facility] PACT E[facility] (Req'g Lo Img Loc: [facility]/CT Service: [place] [address] (Case 16 COMPLETE) LDCT LUNG CANCER SCREENING (CT Detailed) CPT:96688 Proc Modifiers : BILATERAL EXAM Reason for Study: Active smoker Clinical History: More than 20 pack years 12 months follow-up, overdue Report Status: Verified Date Reported: NOV 26, 2024 Date Verified: NOV 26, 2024 [employer] Balancer E-Sig:/ES/STEPHANIE KONG Report: EXAM: CT THORAX LUNG CANCER [facility] C- ADDITIONAL HISTORY: Reason for Study: [...] Primary Interpreting Staff: STEPHANIE KONG, Staff Physician (Tire Balancer) /STEPHANIE ALEXANDRA [facility] Encounter Notes: All associated encounter notes This section contains the clinical notes associated to the Encounter. Date/Time Encounter Note(s) Provider Source Dec 10, 2024 10:36 AM PRIMARY CARE NOTE: LOCAL TITLE: WALK-IN NOTE PRIMARY CARE (T) STANDARD TITLE: PRIMARY CARE NOTE DATE OF NOTE: DEC 10, 2024@10:36 ENTRY DATE: DEC 10, 2024@10:37:24 AUTHOR: LB SANCHEZ COSIGNER: URGENCY: STATUS: COMPLETED WALK-IN NOTE PRIMARY CARE (T) Has ADDENDA Data: 74year old MALE reports to Primary Care clinic for Walk-In visit. Ducor's PCP is PRIYANKA GUEVARA, Today Vet walks in to clinic with complaint of bloody urine Last recorded Vital Signs are: Temperature:97.6 F [36.4 C] (12/10/2024 10:33) Pulse:68 (12/10/2024 10:33) Blood Pressure:154/79 (12/10/2024 10:33) Respiration:20 (12/10/2024 10:33) Pain:0 (12/10/2024 10:33) Vet reports current allergies are: Remote Allergy [...] - LAXATIVE 6) COAL TAR 2% SHAMPOO SUFFICIENT AMOUNT TOPICALLY [...] SEXUAL ACTIVITY Indication: FOR ERECTILE DYSFUNCTION Action: Stephanie States 2 days ago he was not able to urinate, so he went to [facility]. States he had Catheter inserted and told to follow up with Dr Salazar, Urologist (office in [address]) [facility] has appointment with him on November 19 [facility] to him to stay off the Eliquis until he sees Dr Salazar left the hospital AMA after being admitted, states he did not wait to see urologist. [facility] he was Given 1 dose of antibiotic via IV and said he was supposed to have a script for antibiotics but he left. [facility] he noticed it on his phone but cant find it again Able to retrieve message, with message that Cefuroxime 250 mg #14 was sent [place] to [place] pharmacy. Herer with indwelling fernandes catheter, punch color urine in bag and tubing States when he left ER it was light pink then cleared . This morning woke up with darker red urine. Denies abdominal cramps or pain Denies nausea or vomiting Denies diarrhea Ducor with catheter pain at the tip of the penis No erythema note. No lesions Catheter was being pulled with no securement device in place. 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 Reminders Medication Reconciliation DUE NOW HTN Assess for Elevated BP>=140/90 DUE NOW RSV Immunization DUE NOW (Optional) Whole Health Documentation DUE NOW /subhash/ LB SANCHEZ RN PRIMARY CARE RN Signed: 12/12/2024 10:35 Receipt Acknowledged By: 12/13/2024 08:19 /subhash/ SHANI KEENAN RN- REGISTERED NURSE 12/12/2024 ADDENDUM STATUS: COMPLETED AMSA please obtain records from [facility] thank you /roxanna SANCHEZ RN PRIMARY CARE RN Signed: 12/12/2024 10:36 LB SANCHEZ
--- OUTSIDE RECORDS SUMMARY | 2024-12-19 16:07 | XMS_ITS | Continuity of Care Document ---
Author Name [facility] Organization [facility] Care Team Providers Care Director Consumer Affairs Name Role Phone [facility] Unavailable Unavailable Problems Combined list of problems from Department of Defense and Veterans Affairs facilities. It does not include entries that were removed or entered in error. Problem Status Onset Date Problem Type Date of Resolution Comments Source Atrial flutter Active Condition Sep Entered By: WIN MCMULLEN Comment: New Dx SEP 02: Pacemaker Placed [facility]; now on EliquisFeb 2018 Entered By: WIN MCMULLEN Comment: A Flutter Noted Incidentally During Eval for Prostate BxOct 20, 2024 Entered By: JD GRAF Comment: followed by cardiology [place] Cardiac pacemaker in situ Active Condition Dec 01, 2018 Entered By: EMANUEL MATTHEWS Comment: placed 10/03 for a-flutter w/slow ventricular respone,heart block [place] CKD stage 3 Active Condition Jun 17, 2024 Entered By: JD GRAF Comment: 10/17/23 GFR 42Oct 20, 2024 Entered By: JD GRAF Comment: 09/04/24 GFR 52 [facility] Eczema Active Condition [facility] Elevated PSA Active Condition Jun 17, 2024 Entered By: JD GRAF Comment: Prostate Bx was scheduled SEP 02 [facility] but cancelled d/t AFlutter dx [place] GERD - Gastro-esophageal reflux disease Active Condition [facility] Gout Active Condition [place] H/O: recreational drug use Active Condition Jun 20, 2024 Entered By: JD GRAF Comment: cocaine, marijuana [facility] History of alcohol abuse Active Condition Jun 20, 2024 Entered By: JD GRAF Comment: 06/20/24 states he drinks a nip on the holidays [facility] Hyperlipidemia (SNOMED CT 38492729) Active Condition [place] Hypertension (SNOMED CT 39226364) Active Condition [facility] [...] 10/03 negative and scanned into [facility] [place] Nicotine dependence Active Condition Jun 24, 2024 Entered By: JD GRAF Comment: 3 cig/day since age 7Mar 2024 Entered By: JD GRAF Comment: 09/17/24 down to 2 cig/day [place] Obesity Active Condition Jun 24 Entered By: [...] JD GRAF Comment: hx radiation approx 2021 [place] PTSD - Post-traumatic stress disorder [facility] Refractive error (ICD-9-CM 367.9) Active Condition [facility] Screening for malignant neoplasm of colon done Active Condition Jun 14, 2012 Entered By: EMANUEL MATTHEWS Comment: colonoscopy dr mehta 05/26 no poylps or ticsJun 17, 2024 Entered By: JD GRAF Comment: 09/2019 colonoscopy unable to full remove and one completely excised tubular adenoma [place] Secondary erectile dysfunction Active Condition [facility] ACCRETIONS ON TEETH Inactive Condition 12/02/2011 [facility] Chest Findings Inactive Condition 02/07/2012 Sep 19, 2009 Entered By: WIN MCMULLEN Comment: CXR AUG 2009 - No Active Disease [place] Dry Skin (ICD-9-CM 706.8) Inactive Condition 12/02/2011 [facility] Folliculitis * (ICD-9-CM 704.8) Inactive Condition 12/02/2011 [facility] Hyperglycemia Inactive Condition 06/17/2024 [facility] Impaired Fasting Glucose (ICD-9-CM 790.21) Inactive Condition 06/17/2024 [place] Lack of Housing (ICD-9-CM V60.0) Inactive Condition 06/17/2024 [facility] Low back pain Inactive Condition 06/20/2024 [facility] Melasma * [facility]he[facility] Inactive Condition 06/20/2024 [place] Tinea * (ICD-9-CM 110.9) Inactive Condition 02/07/2012 [facility] Unemployment * Inactive Condition 06/17/2024 [facility] UNSPECIFIED DENTAL CARIES Inactive Condition 12/02/2011 [facility] Diagnosis: ICD-10-CM R68.89 Other general symptoms and signs Active Diagnosis [place] Diagnosis: ICD-10-CM Z12.2 Encntr screen for malignant neoplasm of respiratory organs Active Diagnosis [facility] Diagnosis: ICD-10-CM N18.30 Chronic kidney disease, stage 3 unspecified Active Diagnosis [place] Diagnosis: ICD-10-CM R31.9 Hematuria, unspecified Active Diagnosis [facility] Diagnosis: ICD-10-CM I48.92 Unspecified atrial flutter Active Diagnosis [place] Diagnosis: ICD-10-CM L60.3 Nail dystrophy Active Diagnosis [place] Diagnosis: ICD-10-CM Z04.89 Encounter for examination and observation for oth reasons Active Diagnosis [place] Diagnosis: ICD-10-CM R19.7 Diarrhea, unspecified Active Diagnosis [place] Diagnosis: ICD-10-CM K92.1 Melena Active Diagnosis [place] Diagnosis: ICD-10-CM K03.81 Cracked tooth Active Diagnosis [facility] Diagnosis: ICD-10-CM Z46.0 Encounter for fit/adjst of spectacles and contact lenses Active Diagnosis [facility] Diagnosis: ICD-10-CM H40.013 Open angle with borderline findings, low risk, bilateral Active Diagnosis [facility] Medications Combined list of outpatient [...] ONCE DAILY FOR GOUT ORAL ACTIVE 09/18/2025 [id number] 5 Blaine GRAF 2024 90 [facility] IELD ALLOPURINOL 300MG TAB TAKE ONE TABLET BY MOUTH ONCE DAILY FOR GOUT ORAL DISCONT INUED 07/17/2025 [id number] 4 Blaine GRAF 2023 90 [facility] IELD ALLOPURINOL 300MG TAB TAKE ONE TABLET BY MOUTH ONCE DAILY FOR GOUT ORAL DISCONT INUED 04/29/2024 [id number] 4 AARON MATTHEWS 2022 90 [facility] IELD AMLODIPINE BESYLATE 10MG TAB TAKE ONE TABLET BY MOUTH ONCE DAILY FOR BLOOD PRESSURE /HEART, DO NOT TAKE WITH GRAPEFRU IT JUICE ORAL ACTIVE 09/18/2025 [id number] 5 Blaine GRAF 2024 90 [facility] IELD AMLODIPINE BESYLATE 10MG TAB TAKE ONE TABLET BY MOUTH ONCE DAILY FOR BLOOD PRESSURE /HEART, DO NOT TAKE WITH GRAPEFRU IT JUICE ORAL DISCONT INUED 06/25/2025 [id number] 4 Blaine GRAF 2023 90 [place] AMLODIPINE BESYLATE 10MG TAB TAKE ONE TABLET BY MOUTH ONCE DAILY FOR BLOOD PRESSURE /HEART, DO NOT TAKE WITH GRAPEFRU IT JUICE ORAL DISCONT INUED 06/05/2024 [id number] 4 LANEYANASTASIADARRELL Ross RMYINA F 2023 90 [place] AMLODIPINE BESYLATE 10MG TAB TAKE ONE TABLET BY MOUTH ONCE DAILY FOR BLOOD PRESSURE /HEART, DO NOT TAKE WITH GRAPEFRU IT JUICE ORAL DISCONT INUED 04/29/2024 [id number] 4 AARON MATTHEWS 2022 90 [place] AMOXICILLIN TRIHYDRATE 500MG CAP TAKE ONE CAPSULE BY MOUTH FOUR TIMES A DAY ORAL DISCONT INUED BY TARAN Giles 08/16/2024 [id number] 4 JOSHUA MORALES 2023 28 [facility] APIXABAN 5MG TAB TAKE ONE TABLET BY MOUTH TWICE DAILY ORAL ACTIVE 09/18/2025 [id number] 5 Blaine GRAF 2024 180 [place] APIXABAN 5MG TAB TAKE ONE TABLET BY MOUTH TWICE DAILY ORAL DISCONT INUED 08/25/2025 [id number] 5 Blaine GRAF 2024 180 [place] APIXABAN 5MG TAB TAKE ONE TABLET BY MOUTH TWICE DAILY ORAL DISCONT INUED 08/19/2024 [id number] 4 DARRELL LAMBERT BRANDON F 2023 180 [place] APIXABAN 5MG TAB TAKE ONE TABLET BY MOUTH TWICE DAILY ORAL DISCONT INUED 04/29/2024 [id number] AARON MATTHEWS 2022 180 [place] ATORVASTATI N CA 40MG TAB TAKE ONE-HALF TABLET BY MOUTH AT BEDTIME FOR HIGH CHOLESTE ROL ORAL ACTIVE 09/18/2025 [id number] 5 Blaine GRAF 2024 45 [place] BISACODYL 5MG TAB,EC TAKE TWO TABLETS BY MOUTH AT BEDTIME FOR BOWELS - LAXATIVE ORAL ACTIVE 10/30/2025 [id number] 5 ADRI LLOYD YNA 2024 180 [place] BISACODYL 5MG TAB,EC TAKE TWO TABLETS BY MOUTH AT BEDTIME FOR BOWELS - LAXATIVE ORAL DISCONT INUED 08/25/2025 [id number] 5 ADRI LLOYD YNA 2024 180 [place] CEFUROXIME AXETIL 250MG TAB TAKE ONE TABLET BY MOUTH TWICE DAILY ORAL ACTIVE 01/08/2025 [id number] 5 MLINNA CASTRO EODORE K 2024 14 [place] CHLORHEXIDI NE GLUCONATE 0.12% RINSE,ORAL RINSE WITH 10ML BY MOUTH TWICE DAILY FOR 21 DAYS ORAL DISCONT INUED BY PROVIDE R 08/16/2024 [id number] 4 JOSHUA MORALES 2023 473 [facility] COAL TAR 1% SHAMPOO SHAMPOO MODERATE AMOUNT TOPICALL Y TWICE A WEEK NEEDED FOR SEBORRHE IC DERMATIT IS TOPICA L DISCONT INUED BY PROVIDE R 06/21/2025 [id number] Blaine GRAF 2023 360 [place] COAL TAR 2% SHAMPOO SHAMPOO SUFFICIE NT AMOUNT TOPICALL Y TWICE A WEEK NEEDED FOR SEBORRHE IC DERMATIT IS TOPICA L ACTIVE 09/18/2025 [id number] 5 Blaine GRAF 2024 480 [place] COAL TAR 2% SHAMPOO SHAMPOO SUFFICIE NT AMOUNT TOPICALL Y TWICE A WEEK NEEDED FOR SEBORRHE IC DERMATIT IS TOPICA L DISCONT INUED 06/28/2025 [id number] 4 Blaine GRAF 2023 480 [place] GLYCERIN (ADULT) SUPP,RTL INSERT 1 SUPPOSIT ORY RECTALLY ONCE DAILY FOR CONSTIPA TION RECTAL ACTIVE 10/24/2025 [id number] 5 PRIYANKA GUEVARA 2024 100 [place] HYDROCODONE 5MG/ACETAMI NOPHEN 325MG TAB TAKE 1 TABLET BY MOUTH EVERY 6 HOURS NEEDED FOR PAIN ORAL DISCONT INUED BY PROVIDE R 08/16/2024 [id number] 4 JOSHUA MORALES 2023 10 [facility] IBUPROFEN 600MG TAB TAKE ONE TABLET BY MOUTH EVERY 8 HOURS NEEDED FOR PAIN TAKE WITH FOOD ORAL DISCONT INUED BY PROVIDE R 08/16/2024 [id number] 4 Blaine GRAF 2023 90 [place] METOPROLOL SUCCINATE 50MG TAB,SA TAKE ONE TABLET BY MOUTH ONCE DAILY FOR BLOOD PRESSURE /HEART ORAL ACTIVE 09/18/2025 [id number] 5 Blaine GRAF 2024 90 [place] METOPROLOL SUCCINATE 50MG TAB,SA TAKE ONE TABLET BY MOUTH ONCE DAILY FOR BLOOD PRESSURE /HEART ORAL DISCONT INUED 08/25/2025 [id number] 5 Blaine GRAF 2024 90 [place] METOPROLOL SUCCINATE 50MG TAB,SA TAKE ONE TABLET BY MOUTH ONCE DAILY FOR BLOOD PRESSURE /HEART ORAL DISCONT INUED 06/17/2024 [id number] 4 KAJAL [place] 2022 90 [facility] OMEPRAZOLE 20MG CAP,EC TAKE TWO CAPSULES BY MOUTH ONCE DAILY ORAL ACTIVE 10/30/2025 [id number] 5 ADRI LLOYD YKALINA 2024 180 [place] OMEPRAZOLE 20MG CAP,EC TAKE TWO CAPSULES BY MOUTH ONCE DAILY ORAL DISCONT INUED 06/09/2025 [id number] 4 ADRI LLOYD YNA 2023 180 [facility] OXYBUTYNIN CL 10MG TAB,SA TAKE ONE TABLET BY MOUTH ONCE DAILY FOR BLADDER INSTABIL ITY ORAL ACTIVE 09/18/2025 [id number] 5 Blaine GRAF 2024 90 [place] OXYBUTYNIN CL 10MG TAB,SA TAKE ONE TABLET BY MOUTH ONCE DAILY FOR BLADDER INSTABIL ITY ORAL DISCONT INUED 07/22/2025 [id number] 4 Blaine GRAF 2023 90 [place] OXYBUTYNIN CL 10MG TAB,SA TAKE ONE TABLET BY MOUTH ONCE DAILY FOR BLADDER INSTABIL ITY ORAL DISCONT INUED 04/29/2024 [id number] 4 AARON MATTHEWS 2022 90 [place] PANTOPRAZOL E NA 20MG TAB,EC TAKE ONE TABLET BY MOUTH EVERY MORNING 30 MINUTES BEFORE BREAKFAS T ORAL DISCONT INUED BY PROVIDE R 04/29/2024 [id number] 4 AARON MATTHEWS 2022 90 [place] PSYLLIUM PWDR,ORAL TAKE 1 TABLESPO ONFUL BY MOUTH ONCE DAILY (MIX WITH AT LEAST 8OZ. OF WATER OR OTHER FLUID) ORAL ACTIVE 10/30/2025 [id number] 5 ADRI LLOYD YKALINA 2024 780 [facility] IELD PSYLLIUM PWDR,ORAL TAKE 1 TABLESPO ONFUL BY MOUTH ONCE DAILY (MIX WITH AT LEAST 8OZ. OF WATER OR OTHER FLUID) ORAL DISCONT INUED 06/21/2025 [id number] 4 Blaine GRAF 2023 780 [facility] IELD PSYLLIUM PWDR,ORAL TAKE 1 TABLESPO ONFUL BY MOUTH ONCE DAILY (MIX WITH AT LEAST 8OZ. OF WATER OR OTHER FLUID) ORAL DISCONT INUED 06/13/2025 [id number] ADRI LLOYD 2023 780 [facility] [place] [facility] SILDENAFIL CITRATE 100MG TAB TAKE ONE TABLET BY MOUTH ONCE DAILY NEEDED TAKE 1 HOUR PRIOR TO SEXUAL ACTIVITY ORAL ACTIVE 09/18/2025 [id number] 5 Blaine GRAF 2024 18 [place] SILDENAFIL CITRATE 100MG TAB TAKE ONE TABLET BY MOUTH ONCE DAILY NEEDED TAKE 1 HOUR PRIOR TO SEXUAL ACTIVITY ORAL DISCONT INUED 06/23/2025 [id number] 4 Blaine GRAF 2023 18 [place] SILDENAFIL CITRATE 100MG TAB TAKE ONE TABLET BY MOUTH ONCE DAILY NEEDED TAKE 1 HOUR PRIOR TO SEXUAL ACTIVITY ORAL DISCONT INUED 07/31/2024 [id number] DARRELL LAMBERT F 2023 18 [facility] IELD SILDENAFIL CITRATE 100MG TAB TAKE ONE TABLET BY MOUTH ONCE DAILY NEEDED TAKE 1 HOUR PRIOR TO SEXUAL ACTIVITY ORAL DISCONT INUED 03/08/2025 [id number] 4 DARRELL LAMBERT F 2023 6 [facility] IELD SILDENAFIL CITRATE 100MG TAB TAKE ONE TABLET BY MOUTH ONCE DAILY NEEDED TAKE 1 HOUR PRIOR TO SEXUAL ACTIVITY ORAL DISCONT INUED 07/27/2024 [id number] 4 AARON MATTHEWS 2022 6 [facility] IELD SODIUM FLUORIDE 1.1% TOOTHPASTE BRUSH SMALL AMOUNT TO TEETH TWICE DAILY FOR TOOTH DECAY PREVENTI ON DENTAL 07/21/2024 [id number] TE CARTER 2022 204 [facility] TRANEXAMIC ACID 650MG TAB TAKE ONE TABLET BY MOUTH TWICE DAILY FOR 7 DAYS ORAL 11/28/2024 [id number] 5 CHIQUITA ALBA [address] [facility] Immunizations Combined list of available immunizations from the Department of Defense and Veterans Affairs facilities. Immunization Series Date Given Administered By Site Reaction Lot Number CVX Code Drug Public Health Outreach Worker Status Comments Source COVID-19 (MODERNA), MRNA, LNP-S, PF, 50 MCG/0.5 ML (AGES 12+ YEARS) 2023 BANDAR MORALES RIGHT DELTO ID [id number] 312 complet ed [facility] AT [facility] IELD INFLUENZA, HIGH-DOSE, TRIVALENT, PF 2023 BANDAR MORALES LEFT DELTO ID [id number] 135 complet ed [facility]MIN[facility]E [facility] AT [facility] [place] INFLUENZA, HIGH-DOSE, QUADRIVALENT 2022 FAYE HAQ SA LEFT DELTO ID [id number] 197 complet ed Completed Series, [facility]MINISTE [place] AT [place], [facility] INFLUENZA VACCINE, QUADRIVALENT, ADJUVANTED 2021 205 complet ed [place] COVID-19 (MODERNA), MRNA, LNP-S, PF, 100 MCG OR 50 MCG DOSE 3 2020 207 complet ed MOD; [id number]; 2 [place] INFLUENZA VACCINE, QUADRIVALENT, ADJUVANTED 2020 205 complet ed [facility] ZOSTER RECOMBINANT 2 2020 187 complet ed [place] COVID-19 (MODERNA), MRNA, LNP-S, PF, 100 MCG/0.5 ML DOSE 2 2020 207 complet ed MOD; [id number]; 1 [place] COVID-19 (MODERNA), MRNA, LNP-S, PF, 100 MCG/0.5 ML DOSE 1 2020 207 complet ed MOD; [id number]; 1 [place] INFLUENZA, INJECTABLE, QUADRIVALENT, PRESERVATIVE [...] Nov 04, 2024 12:00 PM Reporting Lab: [address] [address] Performing Lab: [address] [address] [facility] VITAMIN D (25-OH) 25-HYDROXYV ITAMIN D3+25-HYDRO XYVITAMIN D2 [MASS/VOLUM E] IN SERUM OR PLASMA 16 ng/mL 20 - 50 11/09 L Specimen Type: SERUM No comment entered. Ordering Provider: TRUDY GUEVARA Report Released Date/Time: Nov 04, 2024 12:00 PM Reporting Lab: [facility] [address] [address] Performing Lab: [address] [address] [facility] LIPID PANEL FASTING CHOLESTEROL [MASS/VOLUM E] IN SERUM OR PLASMA 205 mg/dL 11/09 H Specimen Type: SERUM No comment entered. Ordering Provider: TRUDY GUEVARA Report Released Date/Time: Nov 04, 2024 12:00 PM Reporting Lab: [facility] [address] [address] Performing Lab: [facility] [address] [address] [place] LIPID PANEL FASTING TRIGLYCERID E [MASS/VOLUM E] IN SERUM OR PLASMA 175 mg/dL 0 - 150 11/09 H Specimen Type: SERUM No comment entered. Ordering Provider: TRUDY GUEVARA Report Released Date/Time: Nov 04, 2024 12:00 PM Reporting Lab: [facility] [address] [address] Performing Lab: [facility] [address] [address] [place] LIPID PANEL FASTING CHOLESTEROL IN LDL [MASS/VOLUM E] IN SERUM OR PLASMA BY CALCULATION 141 mg/dL 0 - 129 11/09 H Specimen Type: SERUM No comment entered. Ordering Provider: TRUDY GUEVARA Report Released Date/Time: Nov 04, 2024 12:00 PM Reporting Lab: [facility] [address] [address] Performing Lab: [facility] [address] [address] [place] LIPID PANEL FASTING CHOLESTEROL .TOTAL/CHOL ESTEROL IN HDL [MASS RATIO] IN SERUM OR PLASMA 7.1 11/09 Specimen Type: SERUM No comment entered. Ordering Provider: TRUDY GUEVARA Report Released Date/Time: Nov 04, 2024 12:00 PM Reporting Lab: [facility] [address] [address] Performing Lab: [facility] [address] [address] [place] LIPID PANEL FASTING CHOLESTEROL IN HDL [MASS/VOLUM E] IN SERUM OR PLASMA 29 mg/dL 40 - 60 11/09 L Specimen Type: SERUM No comment entered. Ordering Provider: TRUDY GUEVARA Report Released Date/Time: Nov 04, 2024 12:00 PM Reporting Lab: [facility] [address] [address] Performing Lab: [facility] [address] [address] [place] BASIC METABOLIC PANEL (non-fast ing) UREA NITROGEN [MASS/VOLUM E] IN SERUM OR PLASMA 20 mg/dL 7 - 25 11/09 Specimen Type: SERUM No comment entered. Ordering Provider: TRUDY GUEVARA Report Released Date/Time: Nov 04, 2024 12:00 PM Reporting Lab: [facility] [address] [address] Performing Lab: [facility] [address] [address] [place] BASIC METABOLIC PANEL (non-fast ing) GLUCOSE [MASS/VOLUM E] IN SERUM OR PLASMA 87 mg/dL 65 - 100 11/09 Specimen Type: SERUM No comment entered. Ordering Provider: TRUDY GUEVARA Report Released Date/Time: Nov 04, 2024 12:00 PM Reporting Lab: [facility] [address] [address] Performing Lab: [facility] [address] [address] [place] BASIC METABOLIC PANEL (non-fast ing) SODIUM [MOLES/VOLU ME] IN SERUM OR PLASMA 138 mmol/L 135 - 145 11/09 Specimen Type: SERUM No comment entered. Ordering Provider: TRUDY GUEVARA Report Released Date/Time: Nov 04, 2024 12:00 PM Reporting Lab: [facility] [address] [address] Performing Lab: [facility] [address] [address] [place] BASIC METABOLIC PANEL (non-fast ing) POTASSIUM [MOLES/VOLU ME] IN SERUM OR PLASMA 4.6 mmol/L 3.5 - 5.0 11/09 Specimen Type: SERUM No comment entered. Ordering Provider: TRUDY GUEVARA Report Released Date/Time: Nov 04, 2024 12:00 PM Reporting Lab: [facility] [address] [address] Performing Lab: [address] [address] [place] BASIC METABOLIC PANEL (non-fast ing) CHLORIDE [MOLES/VOLU ME] IN SERUM OR PLASMA 109 mmol/L 100 - 110 11/09 Specimen Type: SERUM No comment entered. Ordering Provider: TRUDY GUEVARA Report Released Date/Time: Nov 04, 2024 12:00 PM Reporting Lab: [address] [address] Performing Lab: [address] [address] [place] BASIC METABOLIC PANEL (non-fast ing) CARBON DIOXIDE, TOTAL [MOLES/VOLU ME] IN SERUM OR PLASMA 20 meq/L 20 - 30 11/09 Specimen Type: SERUM No comment entered. Ordering Provider: TRUDY GUEVARA Report Released Date/Time: Nov 04, 2024 12:00 PM Reporting Lab: [address] [address] Performing Lab: [address] [address] [place] BASIC METABOLIC PANEL (non-fast ing) CALCIUM [MASS/VOLUM E] IN SERUM OR PLASMA 8.9 mg/dL 8.5 - 10.2 11/09 Specimen Type: SERUM No comment entered. Ordering Provider: TRUDY GUEVARA Report Released Date/Time: Nov 04, 2024 12:00 PM Reporting Lab: [address] [address] Performing Lab: [address] [address] [place] BASIC METABOLIC PANEL (non-fast ing) CREATININE [MASS/VOLUM E] IN SERUM OR PLASMA 1.28 mg/dL 0.50 - 1.40 11/09 Specimen Type: SERUM No comment entered. Ordering Provider: TRUDY GUEVARA Report Released Date/Time: Nov 04, 2024 12:00 PM Reporting Lab: [facility] [address] [address] Performing Lab: [facility] [address] [address] [place] BASIC METABOLIC PANEL (non-fast ing) GLOMERULAR FILTRATION RATE/1.73 SQ M.PREDICTED [VOLUME RATE/AREA] IN SERUM, PLASMA OR BLOOD BY CREATININE- BASED FORMULA (CKD-EPI 2020) 58 mL/min 60 11/09 L Specimen Type: SERUM No comment entered. Ordering Provider: TRUDY GUEVARA Report Released Date/Time: Nov 04, 2024 12:00 PM Reporting Lab: [facility] [address] [address] Performing Lab: [facility] [address] [address] [place] CBC AND DIFF (AUTO) LEUKOCYTES [#/VOLUME] IN BLOOD BY AUTOMATED COUNT 3.10 10*3/u L 4.50 - 11.00 11/09 L Specimen Type: BLOOD No comment entered. Ordering Provider: TRUDY GUEVARA Report Released Date/Time: Nov 04, 2024 12:00 PM Reporting Lab: [facility] [address] [address] Performing Lab: [facility] [address] [place] CBC AND DIFF (AUTO) ERYTHROCYTE S [#/VOLUME] IN BLOOD BY AUTOMATED COUNT 4.05 10*6/u L 4.23 - 5.66 11/09 L Specimen Type: BLOOD No comment entered. Ordering Provider: TRUDY GUEVARA Report Released Date/Time: Nov 04, 2024 12:00 PM Reporting Lab: [facility] [address] [address] Performing Lab: [facility] [address] [address] [place] CBC AND DIFF (AUTO) HEMOGLOBIN [MASS/VOLUM E] IN BLOOD 12.9 g/dL 12.8 - 17 11/09 Specimen Type: BLOOD No comment entered. Ordering Provider: TRUDY GUEVARA Report Released Date/Time: Nov 04, 2024 12:00 PM Reporting Lab: [facility] [address] [address] Performing Lab: [facility]ITALUSETS [address] [address] [place] CBC AND DIFF (AUTO) HEMATOCRIT [VOLUME FRACTION] OF BLOOD BY AUTOMATED COUNT 37.6 39.2 - 50.4 11/09 L Specimen Type: BLOOD No comment entered. Ordering Provider: TRUDY GUEVARA Report Released Date/Time: Nov 04, 2024 12:00 PM Reporting Lab: [facility] [address] [address] Performing Lab: [facility] [address] [place] CBC AND DIFF (AUTO) MCV [ENTITIC VOLUME] BY AUTOMATED COUNT 92.8 fL 82 - 99 11/09 Specimen Type: BLOOD No comment entered. Ordering Provider: TRUDY GUEVARA Report Released Date/Time: Nov 04, 2024 12:00 PM Reporting Lab: [facility] [address] [address] Performing Lab: [facility] [address] [place] CBC AND DIFF (AUTO) MCHC [MASS/VOLUM E] BY AUTOMATED COUNT 34.3 g/dL 30.8 - 35.1 11/09 Specimen Type: BLOOD No comment entered. Ordering Provider: TRUDY GUEVARA Report Released Date/Time: Nov 04, 2024 12:00 PM Reporting Lab: [facility] [address] [address] Performing [facility]: [facility] [address] [place] CBC AND DIFF (AUTO) PLATELETS [#/VOLUME] IN BLOOD BY AUTOMATED COUNT 184 10*3/u L 140 - 360 11/09 Specimen Type: BLOOD No comment entered. Ordering Provider: TRUDY GUEVARA Report Released Date/Time: Nov 04, 2024 12:00 PM Reporting Lab: [facility] [address] [address] Performing Lab: [facility]N [facility] [address] [place] CBC AND DIFF (AUTO) PLATELET MEAN VOLUME [ENTITIC VOLUME] IN BLOOD BY AUTOMATED COUNT 11.2 fL 9.2 - 12.4 11/09 Specimen Type: BLOOD No comment entered. Ordering Provider: TRUDY GUEVARA Report Released Date/Time: Nov 04, 2024 12:00 PM Reporting Lab: [facility] [address] [address] Performing Lab: [facility]TR[facility] [id number] [place] CBC AND DIFF (AUTO) ERYTHROCYTE DISTRIBUTIO N WIDTH [RATIO] BY AUTOMATED COUNT 14.7 12.0 - 16.0 11/09 Specimen Type: BLOOD No comment entered. Ordering Provider: TRUDY GUEVARA Report Released Date/Time: Nov 04, 2024 12:00 PM Reporting Lab: [facility] [address] [address] Performing Lab: [facility] SYSTEM[facility] [address] [place] CBC AND DIFF (AUTO) MONOCYTES [#/VOLUME] IN BLOOD BY AUTOMATED COUNT 0.42 10*3/u L 0.30 - 1.10 11/09 Specimen Type: BLOOD No comment entered. Ordering Provider: TRUDY GUEVARA Report Released Date/Time: Nov 04, 2024 12:00 PM Reporting Lab: [facility]TR[facility] [address] Performing Lab: [facility]TR[facility] [address] [place] CBC AND DIFF (AUTO) MCH [ENTITIC MASS] BY AUTOMATED COUNT 31.9 pg 26.2 - 32.6 11/09 Specimen Type: BLOOD No comment entered. Ordering Provider: TRUDY GUEVARA Report Released Date/Time: Nov 04, 2024 12:00 PM Reporting Lab: [facility] [place] [address] [address] Performing Lab: [facility] [place] [address] [address] [place] CBC AND DIFF (AUTO) NEUTROPHILS /100 LEUKOCYTES IN BLOOD BY AUTOMATED COUNT 50.4 43.7 - 75.8 11/09 Specimen Type: BLOOD No comment entered. Ordering Provider: TRUDY GUEVARA Report Released Date/Time: Nov 04, 2024 12:00 PM Reporting Lab: [facility] [address] [address] Performing Lab: [facility] [place] [address] [address] [place] CBC AND DIFF (AUTO) LYMPHOCYTES /100 LEUKOCYTES IN BLOOD BY AUTOMATED COUNT 29.4 14.0 - 42.3 11/09 Specimen Type: BLOOD No comment entered. Ordering Provider: TRUDY GUEVARA Report Released Date/Time: Nov 04, 2024 12:00 PM Reporting Lab: [facility] [place] [address] [address] Performing Lab: [facility] [place] [address] [address] [place] CBC AND DIFF (AUTO) MONOCYTES/1 00 LEUKOCYTES IN BLOOD BY AUTOMATED COUNT 13.5 5.1 - 13.7 11/09 Specimen Type: BLOOD No comment entered. Ordering Provider: TRUDY GUEVARA Report Released Date/Time: Nov 04, 2024 12:00 PM Reporting Lab: [facility] [place] [address] [address] Performing Lab: [facility] [place] [address] [address] [place] CBC AND DIFF (AUTO) EOSINOPHILS /100 LEUKOCYTES IN BLOOD BY AUTOMATED COUNT 5.8 0.4 - 6.8 11/09 Specimen Type: BLOOD No comment entered. Ordering Provider: TRUDY GUEVARA Report Released Date/Time: Nov 04, 2024 12:00 PM Reporting Lab: [facility] [address] [address] Performing Lab: [facility] TRN [address] [address] [place] CBC AND DIFF (AUTO) BASOPHILS/1 00 LEUKOCYTES IN BLOOD BY AUTOMATED COUNT 0.6 0.1 - 2.0 11/09 Specimen Type: BLOOD No comment entered. Ordering Provider: TRUDY GUEVARA Report Released Date/Time: Nov 04, 2024 12:00 PM Reporting Lab: [facility]ERN [address] [address] Performing Lab: [facility]ERN [address] [address] [place] CBC AND DIFF (AUTO) NEUTROPHILS [#/VOLUME] IN BLOOD BY AUTOMATED COUNT 1.56 10*3/u L 2.20 - 7.60 11/09 L Specimen Type: BLOOD No comment entered. Ordering Provider: TRUDY GUEVARA Report Released Date/Time: Nov 04, 2024 12:00 PM Reporting Lab: [facility]TR[facility] [address] [address] Performing Lab: [facility] [address] [place] CBC AND DIFF (AUTO) LYMPHOCYTES [#/VOLUME] IN BLOOD BY AUTOMATED COUNT 0.91 10*3/u L 1.00 - 3.20 11/09 L Specimen Type: BLOOD No comment entered. Ordering Provider: TRUDY GUEVARA Report Released Date/Time: Nov 04, 2024 12:00 PM Reporting Lab: [facility]ARRAW[facility]ERN [address] [address] Performing Lab: [facility] [address] [address] [place] CBC AND DIFF (AUTO) EOSINOPHILS [#/VOLUME] IN BLOOD BY AUTOMATED COUNT 0.18 10*3/u L 0.03 - 0.44 11/09 Specimen Type: BLOOD No comment entered. Ordering Provider: TRUDY GUEVARA Report Released Date/Time: Nov 04, 2024 12:00 PM Reporting Lab: [facility] [address] [facility] [address] Performing Lab: [facility] [place] [facility] [address] [facility] [address] [place] CBC AND DIFF (AUTO) BASOPHILS [#/VOLUME] IN BLOOD BY AUTOMATED COUNT 0.02 10*3/u L 0.01 - 0.13 11/09 Specimen Type: BLOOD No comment entered. Ordering Provider: TRUDY GUEVARA Report Released Date/Time: Nov 04, 2024 12:00 PM Reporting Lab: [facility] [address] [address] Performing Lab: [facility] [address] [address] [place] CBC AND DIFF (AUTO) IMMATURE GRANULOCYTE S/100 LEUKOCYTES IN BLOOD BY AUTOMATED COUNT 0.3 0.0 - 0.7 11/09 Specimen Type: BLOOD No comment entered. Ordering Provider: TRUDY GUEVARA Report Released Date/Time: Nov 04, 2024 12:00 PM Reporting Lab: [facility] [address] [address] Performing Lab: [facility] [address] [facility] [address] [place] CBC AND DIFF (AUTO) IMMATURE GRANULOCYTE S [#/VOLUME] IN BLOOD BY AUTOMATED COUNT 0.01 10*3/u L 0.00 - 0.06 11/09 Specimen Type: BLOOD No comment entered. Ordering Provider: TRUDY GUEVARA Report Released Date/Time: Nov 04, 2024 12:00 PM Reporting Lab: [facility] [address] [address] Performing Lab: [facility]ITALTRN [place] [facility] [address] [address] [place] CBC AND DIFF (AUTO) NUCLEATED ERYTHROCYTE S/100 LEUKOCYTES [RATIO] IN BLOOD BY AUTOMATED COUNT 0.0 0.0 - 0.0 11/09 Specimen Type: BLOOD No comment entered. Ordering Provider: TRUDY GUEVARA Report Released Date/Time: Nov 04, 2024 12:00 PM Reporting Lab: [facility]TRN [place] [facility] [address] [address] Performing Lab: [facility]ITALTRN [facility] [address] [address] [place] CBC AND DIFF (AUTO) NUCLEATED ERYTHROCYTE S [#/VOLUME] IN BLOOD BY AUTOMATED COUNT 0.00 10*3/u L 0.00 - 0.00 11/09 Specimen Type: BLOOD No comment entered. Ordering Provider: TRUDY GUEVARA Report Released Date/Time: Nov 04, 2024 12:00 PM Reporting Lab: [facility]ITALTRN [facility] [address] [address] Performing Lab: [facility]OSPITALTRN [facility]ITALUSEGARNET [facility] [address] [address] [place] MICROSCOP IC AUTOMATED , URINE LEUKOCYTES [#/AREA] IN URINE SEDIMENT BY MICROSCOPY HIGH POWER FIELD 0-5/[H PF] 0 - 5 10/30 Specimen Type: URINE Comment: If Glucose = >500 and Ketones are positive, please alert the Physician. Ordering Provider: NUBIA EVANS NP Report Released Date/Time: Oct 15, 2024 11:36 AM Reporting Lab: [facility]ITALTRN [facility]ITALUSEGAR[facility] [address] [address] Performing Lab: [facility]ITALTRN [facility]USE[address] [address] [facility] SYSTEMRCARRAWAY [facility]ENTERN [facility]ITALUSE [facility] MICROSCOP IC AUTOMATED , URINE BACTERIA [#/AREA] IN URINE SEDIMENT BY MICROSCOPY HIGH POWER FIELD 1+/[HP F] 10/30 Specimen Type: URINE Comment: If Glucose = >500 and Ketones are positive, please alert the Physician. Ordering Provider: EVANS,NUBIA INTERMEDIATE DESIGNER Report Released Date/Time: Oct 15, 2024 11:36 AM Reporting Lab: [facility] [place] [facility] [address] [address] Performing Lab: [facility] [place] [facility] [address] [address] [facility] [place] [facility] MICROSCOP IC AUTOMATED , URINE ERYTHROCYTE S [#/AREA] IN URINE SEDIMENT BY MICROSCOPY HIGH POWER FIELD TNTC/[ HPF] 0 - 3 10/30 Specimen Type: URINE Comment: If Glucose = >500 and Ketones are positive, please alert the Physician. Ordering Provider: NUBIA EVANS INTERMEDIATE DESIGNER Report Released Date/Time: Oct 15, 2024 11:36 AM Reporting Lab: [facility] [place] [address] [address] Performing Lab: [facility] [place] [address] [address] [facility] [place] [facility] URINALYSI S COLOR OF URINE Dark-B rown 10/30 Specimen Type: URINE Comment: If Glucose = >500 and Ketones are positive, please alert the Physician. Ordering Provider: NUBIA EVANS NP Report Released Date/Time: Oct 15, 2024 11:36 AM Reporting Lab: [facility] [place] [address] [address] Performing Lab: [facility] [place] [address] [address] [facility] [place] [facility] URINALYSI S APPEARANCE OF URINE Ex.Tur bid 10/30 Specimen Type: URINE Comment: If Glucose = >500 and Ketones are positive, please alert the Physician. Ordering Provider: NUBIA EVANS NP Report Released Date/Time: Oct 15, 2024 11:36 AM Reporting Lab: [facility] [place] [facility] [address] [address] Performing Lab: [facility] [place] [address] [address] [facility] [place] [facility] URINALYSI S GLUCOSE [MASS/VOLUM E] IN URINE Normal mg/dL 10/30 Specimen Type: URINE Comment: If Glucose = >500 and Ketones are positive, please alert the Physician. Ordering Provider: NUBIA EVANS NP Report Released Date/Time: Oct 15, 2024 11:36 AM Reporting Lab: [facility] [address] [address] Performing Lab: [facility] [address] [facility]ITALUSE [facility] URINALYSI S KETONES [MASS/VOLUM E] IN URINE BY TEST STRIP NEGATI VEmg/d L 10/30 Specimen Type: URINE Comment: If Glucose = >500 and Ketones are positive, please alert the Physician. Ordering Provider: NUBIA EVANS NP Report Released Date/Time: Oct 15, 2024 11:36 AM Reporting Lab: [address] [address] Performing Lab: [facility]USE[address] [address] [facility] URINALYSI S ERYTHROCYTE S [PRESENCE] IN URINE SEDIMENT BY LIGHT MICROSCOPY LARGEm g/dL 10/30 Specimen Type: URINE Comment: If Glucose = >500 and Ketones are positive, please alert the Physician. Ordering Provider: NUBIA EVANS NP Report Released Date/Time: Oct 15, 2024 11:36 AM Reporting Lab: [facility]USE[address] [address] Performing Lab: [facility] [address] [facility]ITALUSE [facility] URINALYSI S PROTEIN [MASS/VOLUM E] IN URINE BY TEST STRIP 100 mg/dL 10/30 Specimen Type: URINE Comment: If Glucose = >500 and Ketones are positive, please alert the Physician. Ordering Provider: NUBIA EVANS NP Report Released Date/Time: Oct 15, 2024 11:36 AM Reporting Lab: [facility]RCAR[facility]ERN [facility]USE[address] [address] Performing Lab: [facility] [place] [facility] [address] [address] [facility] [place] [facility] URINALYSI S NITRITE [PRESENCE] IN URINE NEGATI VEmg/d L 10/30 Specimen Type: URINE Comment: If Glucose = >500 and Ketones are positive, please alert the Physician. Ordering Provider: NUBIA EVANS NP Report Released Date/Time: Oct 15, 2024 11:36 AM Reporting Lab: [facility] [place] [address] [address] Performing Lab: [facility] [address] [facility] [place] [facility] URINALYSI S BILIRUBIN.T OTAL [PRESENCE] IN URINE NEGATI VEmg/d L 10/30 Specimen Type: URINE Comment: If Glucose = >500 and Ketones are positive, please alert the Physician. Ordering Provider: NUBIA EVANS INTERMEDIATE DESIGNER Report Released Date/Time: Oct 15, 2024 11:36 AM Reporting Lab: [facility] [address] Performing Lab: [facility] [address] [facility] SYSTEM[facility] TRN [facility]ITALUSE [facility] URINALYSI S SPECIFIC GRAVITY OF URINE BY REFRACTOMET RY 1.023 1.016 - 1.022 10/30 H Specimen Type: URINE Comment: If Glucose = >500 and Ketones are positive, please alert the Physician. Ordering Provider: NUBIA EVANS INTERMEDIATE DESIGNER Report Released Date/Time: Oct 15, 2024 11:36 AM Reporting Lab: [facility] [address] Performing Lab: [facility] W[facility]N [facility]USE[address] [address] [facility] SYSTEM[facility]N [place] [facility] URINALYSI S PH OF URINE BY TEST STRIP 5.5 5.0 - 9.0 10/30 Specimen Type: URINE Comment: If Glucose = >500 and Ketones are positive, please alert the Physician. Ordering Provider: NUBIA EVANS NP Report Released Date/Time: Oct 15, 2024 11:36 AM Reporting Lab: [facility]ITALTRN [place] [facility] [address] [address] Performing Lab: [facility]R W[facility]N [facility]ITALUSETS [address] [address] [facility] SYSTEMRL W[facility]N [place] [facility] URINALYSI S UROBILINOGE N [MASS/VOLUM E] IN URINE BY TEST STRIP Normal mg/dL <2.0 - 2.0 10/30 Specimen Type: URINE Comment: If Glucose = >500 and Ketones are positive, please alert the Physician. Ordering Provider: NUBIA EVANS NP Report Released Date/Time: Oct 15, 2024 11:36 AM Reporting Lab: [facility]ITALTRN [facility] [address] Performing Lab: [facility] SYSTEMRL TRN [facility]ITALUSETS [address] [address] [facility] SYSTEMRCARRAWAY [facility]ENTERN [facility]ITALCHUSE [facility] URINALYSI S LEUKOCYTE ESTERASE [PRESENCE] IN URINE BY TEST STRIP TRACE 10/30 Specimen Type: URINE Comment: If Glucose = >500 and Ketones are positive, please alert the Physician. Ordering Provider: NUBIA EVANS NP Report Released Date/Time: Oct 15, 2024 11:36 AM Reporting Lab: [facility] SYSTEMRCARRAW[facility]ERN [facility]ITALUSETS [address] [address] Performing Lab: [facility]N [place] [address] [address] [facility] SYSTEMRCARRAWAY [facility]ENTERN [place] [facility] BASIC METABOLIC PANEL (fasting) UREA NITROGEN [MASS/VOLUM E] IN SERUM OR PLASMA 24 mg/dL 7 - 25 09/04 Specimen Type: SERUM No comment entered. Ordering Provider: YON GRAF Report Released Date/Time: Jun 13, 2024 03:11 PM Reporting Lab: [facility]ITALTRN [place] [address] [address] Performing Lab: [facility]ITALTRN [facility] [address] [place] BASIC METABOLIC PANEL (fasting) GLUCOSE [MASS/VOLUM E] IN SERUM OR PLASMA 86 mg/dL 65 - 100 09/04 Specimen Type: SERUM No comment entered. Ordering Provider: YON GRAF Report Released Date/Time: Jun 13, 2024 03:11 PM Reporting Lab: [address] [address] Performing Lab: [facility] [address] [address] [place] BASIC METABOLIC PANEL (fasting) SODIUM [MOLES/VOLU ME] IN SERUM OR PLASMA 138 mmol/L 135 - 145 09/04 Specimen Type: SERUM No comment entered. Ordering Provider: YON GRAF Report Released Date/Time: Jun 13, 2024 03:11 PM Reporting Lab: [address] [address] Performing Lab: [facility] [address] [address] [place] BASIC METABOLIC PANEL (fasting) POTASSIUM [MOLES/VOLU ME] IN SERUM OR PLASMA 4.9 mmol/L 3.5 - 5.0 09/04 Specimen Type: SERUM No comment entered. Ordering Provider: YON RGAF Report Released Date/Time: Jun 13, 2024 03:11 PM Reporting Lab: [address] [address] Performing Lab: [facility] [address] [address] [place] BASIC METABOLIC PANEL (fasting) CHLORIDE [MOLES/VOLU ME] IN SERUM OR PLASMA 105 mmol/L 100 - 110 09/04 Specimen Type: SERUM No comment entered. Ordering Provider: YON GRAF Report Released Date/Time: Jun 13, 2024 03:11 PM Reporting Lab: [facility] [address] [address] Performing Lab: [facility] [address] [address] [place] BASIC METABOLIC PANEL (fasting) CARBON DIOXIDE, TOTAL [MOLES/VOLU ME] IN SERUM OR PLASMA 23 meq/L 20 - 30 09/04 Specimen Type: SERUM No comment entered. Ordering Provider: YON GRAF Report Released Date/Time: Jun 13, 2024 03:11 PM Reporting Lab: [facility]TRN [address] [address] Performing Lab: [facility] SYSTEMRCARRAWAY [facility]ERN [facility]USE[address] [address] [place] BASIC METABOLIC PANEL (fasting) CREATININE [MASS/VOLUM E] IN SERUM OR PLASMA 1.41 mg/dL 0.50 - 1.40 09/04 H Specimen Type: SERUM No comment entered. Ordering Provider: YON GRAF Report Released Date/Time: Jun 13, 2024 03:11 PM Reporting Lab: [facility] [address] [address] Performing Lab: [facility]RC[facility]ERN [facility] [address] [place] BASIC METABOLIC PANEL (fasting) GLOMERULAR FILTRATION RATE/1.73 SQ M.PREDICTED [VOLUME RATE/AREA] IN SERUM, PLASMA OR BLOOD BY CREATININE- BASED FORMULA (CKD-EPI 2020) 52 mL/min 60 09/04 L Specimen Type: SERUM No comment entered. Ordering Provider: YON GRAF Report Released Date/Time: Jun 13, 2024 03:11 PM Reporting Lab: [facility]ITALTRN [facility] [address] Performing Lab: [facility]ITALTRN [facility] [address] [place] LIPID PANEL FASTING CHOLESTEROL [MASS/VOLUM E] IN SERUM OR PLASMA 272 mg/dL 09/04 H Specimen Type: SERUM No comment entered. Ordering Provider: YON GRAF Report Released Date/Time: Jun 13, 2024 03:11 PM Reporting Lab: [facility]RCAR[facility]ERN [facility] [address] Performing Lab: [facility] [address] [address] [place] LIPID PANEL FASTING TRIGLYCERID E [MASS/VOLUM E] IN SERUM OR PLASMA 188 mg/dL 0 - 150 09/04 H Specimen Type: SERUM No comment entered. Ordering Provider: YON GRAF Report Released Date/Time: Jun 13, 2024 03:11 PM Reporting Lab: [facility] [address] [address] Performing Lab: [facility] [address] [address] [place] LIPID PANEL FASTING CHOLESTEROL IN LDL [MASS/VOLUM E] IN SERUM OR PLASMA BY CALCULATION 202 mg/dL 0 - 129 09/04 H Specimen Type: SERUM No comment entered. Ordering Provider: YON GRAF Report Released Date/Time: Jun 13, 2024 03:11 PM Reporting Lab: [facility] [address] [address] Performing Lab: [facility] [address] [address] [place] LIPID PANEL FASTING CHOLESTEROL .TOTAL/CHOL ESTEROL IN HDL [MASS RATIO] IN SERUM OR PLASMA 8.5 09/04 Specimen Type: SERUM No comment entered. Ordering Provider: YON GRAF Report Released Date/Time: Jun 13, 2024 03:11 PM Reporting Lab: [facility] [address] [address] Performing Lab: [facility] [address] [address] [place] LIPID PANEL FASTING CHOLESTEROL IN HDL [MASS/VOLUM E] IN SERUM OR PLASMA 32 mg/dL 40 - 60 09/04 L Specimen Type: SERUM No comment entered. Ordering Provider: YON GRAF Report Released Date/Time: Jun 13, 2024 03:11 PM Reporting Lab: [facility] [address] [address] Performing Lab: [facility] [address] [address] [place] LIVER FUNCTION PROTEIN [MASS/VOLUM E] IN SERUM OR PLASMA 7.5 g/dL 6.0 - 8.3 09/04 Specimen Type: SERUM No comment entered. Ordering Provider: YON GRAF Report Released Date/Time: Jun 13, 2024 03:11 PM Reporting Lab: [facility]RL [facility]N [facility] [address] [facility] [address] Performing Lab: [facility] [place] [facility] [address] [address] [place] LIVER FUNCTION ALBUMIN [MASS/VOLUM E] IN SERUM OR PLASMA 4.0 g/dL 3.5 - 5.0 09/04 Specimen Type: SERUM No comment entered. Ordering Provider: YON GRAF Report Released Date/Time: Jun 13, 2024 03:11 PM Reporting Lab: [facility] [address] [address] Performing Lab: [facility] [address] [address] [place] LIVER FUNCTION ALKALINE PHOSPHATASE [ENZYMATIC ACTIVITY/VO LUME] IN SERUM OR PLASMA 66 U/L 40 - 150 09/04 Specimen Type: SERUM No comment entered. Ordering Provider: YON GRAF Report Released Date/Time: Jun 13, 2024 03:11 PM Reporting Lab: [facility] [address] Performing Lab: [facility]N [facility]US[facility] [address] [address] [place] LIVER FUNCTION ASPARTATE AMINOTRANSF ERASE [ENZYMATIC ACTIVITY/VO LUME] IN SERUM OR PLASMA 16 U/L 5 - 34 09/04 Specimen Type: SERUM No comment entered. Ordering Provider: YON GRAF Report Released Date/Time: Jun 13, 2024 03:11 PM Reporting Lab: [facility] [place] [facility] [address] [address] Performing Lab: [facility]ITALUSETS [address] [address] [place] LIVER FUNCTION ALANINE AMINOTRANSF ERASE [ENZYMATIC ACTIVITY/VO LUME] IN SERUM OR PLASMA 21 U/L 09/04 Specimen Type: SERUM No comment entered. Ordering Provider: YON GRAF Report Released Date/Time: Jun 13, 2024 03:11 PM Reporting Lab: [facility] [address] [address] Performing Lab: [address] [address] [facility] LIVER FUNCTION BILIRUBIN.T OTAL [MASS/VOLUM E] IN SERUM OR PLASMA 0.5 mg/dL 0.2 - 1.2 09/04 Specimen Type: SERUM No comment entered. Ordering Provider: YON GRAF Report Released Date/Time: Jun 13, 2024 03:11 PM Reporting Lab: [address] [address] Performing Lab: [address] [address] [facility] Vital Signs Combined list of inpatient and outpatient Vital Signs from [employer] and [employer], ranging from 12 months to all on record, depending upon the facility. Vital Sign Value Date Comments Source SYSTOLIC BLOOD PRESSURE 138 12/12/2024 10:15:29 [place] DIASTOLIC BLOOD PRESSURE 70 12/12/2024 10:15:29 [place] PULSE OXIMETRY 98 12/12/2024 10:15:29 [place] PAIN 3 12/12/2024 10:15:29 [place] TEMPERATURE 98.2 12/12/2024 10:15:29 [place] PULSE 77 12/12/2024 10:15:29 [place] RESPIRATION 16 12/12/2024 10:15:29 [facility] [place] SYSTOLIC BLOOD PRESSURE 154 12/10/2024 10:33:56 [place] DIASTOLIC BLOOD PRESSURE 79 12/10/2024 10:33:56 [place] PULSE OXIMETRY 97 12/10/2024 10:33:56 [place] PAIN 0 12/10/2024 10:33:56 [place] TEMPERATURE 97.6 12/10/2024 10:33:56 [place] PULSE 68 12/10/2024 10:33:56 [place] RESPIRATION 20 12/10/2024 10:33:56 [place] SYSTOLIC BLOOD PRESSURE 135 11/01/2024 15:12:04 [place] DIASTOLIC BLOOD PRESSURE 76 11/01/2024 15:12:04 [place] PULSE OXIMETRY 95 11/01/2024 15:12:04 [place] WEIGHT 220 11/01/2024 15:12:04 [place] BMI 31 kg/m2 11/01/2024 15:12:04 [place] PULSE 75 11/01/2024 15:12:04 [place] SYSTOLIC BLOOD PRESSURE 137 09/17/2024 10:02:17 [place] DIASTOLIC BLOOD PRESSURE 83 09/17/2024 10:02:17 [place] PULSE OXIMETRY 95 09/17/2024 10:02:17 [place] WEIGHT 228 09/17/2024 10:02:17 [place] BMI 32 kg/m2 09/17/2024 10:02:17 [place] HEIGHT 70.5 09/17/2024 10:02:17 [place] TEMPERATURE 97.8 09/17/2024 10:02:17 [place] PULSE 66 09/17/2024 10:02:17 [place] RESPIRATION 19 09/17/2024 10:02:17 [place] SYSTOLIC BLOOD PRESSURE 137 06/20/2024 13:46:58 [place] DIASTOLIC BLOOD PRESSURE 86 06/20/2024 13:46:58 [place] PULSE OXIMETRY 96 06/20/2024 13:46:58 [place] WEIGHT 222 06/20/2024 13:46:58 [place] BMI 32 kg/m2 06/20/2024 13:46:58 [place] PULSE 65 06/20/2024 13:46:58 [place] Encounters Combined list of: 1) Encounters from Department of Veterans Affairs facilities going backup to the last 18 months, not all [place] inpatient encounters are included; 2) Encounters from the Department of Defense facilities going backup to 280 months. Location Location Details Encounter Type Encounter Number Reason For Visit Attending Provider ADM Date DC Date Status Disposition Source [facility] Outpatient Encounter [id number] 06/20 [facility]counter [id number] 06/20 [facility] Outpatient [facility]counter [id number] 06/21 [facility] Out[facility]counter [id number] 06/22 [facility] Out[facility] Encounter [id number] HUGO ARAUJO 06/22 [facility] Out[facility] Encounter [id number] 06/23 [facility] Out[facility]counter [id number] 06/25 [facility] Out[facility] Encounter [id number] 07/01 [facility] Out[facility]counter [id number] 07/13 [facility] Out[facility] Encounter [id number] 07/19 [facility] Out[facility] Encounter [id number] 07/21 [facility] Out[facility] Encounter [id number] 07/23 [facility] Out[facility] Encounter [id number] 07/25 [facility] Out[facility] Encounter [id number] 07/26 [facility] Out[facility] Encounter [id number] 07/29 [facility] Out[facility] Encounter [id number] 08/03 [facility] EYE EXAM&TX ESTAB PT 1/>VST [id number] Diagnos is: ICD-10- CM H40.013 Open angle with borderl ine finding s, low risk, bilater al MERHAR,ESME H B 08/03 [facility] FIT SPECTACLES BIFOCAL [id number] Diagnos is: ICD-10- CM Z46.0 Encount er for fit/adj st of spectac les and contact lenses MERHAR,ESME H B 08/03 [facility] Outpatient Encounter [id number] 08/24 [facility] QNHP OL DIG ASSMT&MGMT 5-10 [id number] Diagnos is: ICD-10- CM Z04.89 Encount er for examina tion and observa tion for oth reasons KOURTNEY WILLIAM 08/25 [facility] Out[facility] Encounter [id number] 08/25 [facility] Out[facility] Encounter [id number] 09/14 [facility] Out[facility] Encounter [id number] 10/10 [facility] Outpatient Encounter [id number] [facility] EXTENSV ORAL EVAL PROB FOCUS [id number] Diagnos is: ICD-10- CM K03.81 Cracked tooth HALLEY MOYA 10/13 [facility] Out[facility] Encounter [id number] 10/16 [facility] Out[facility] Encounter [id number] 10/20 [facility] Out[facility] Encounter [id number] 12/12 [facility] Out[facility] Encounter [id number] 12/19 [facility] Out[facility] Encounter [id number] 01/12 [facility] Out[facility] Encounter [id number] 01/12 [facility] Out[facility] Encounter [id number] 01/22 [facility] Out[facility]counter [id number] 01/26 [facility] Out[facility] Encounter [id number] 01/26 [facility] Out[facility] Encounter [id number] 02/08 [facility] Out[facility] Encounter [id number] 02/19 [facility] Out[facility]counter [id number] 02/19 [facility] Out[facility] Encounter [id number] 03/02 [facility] Out[facility] Encounter [id number] 03/02 [facility] Out[facility] Encounter [id number] 03/07 [facility] Out[facility] Encounter [id number] 03/09 [facility] [place]/OP EST DECEMBER X REQ PHY/QHP [id number] Diagnos is: ICD-10- CM K92.1 Uyen SANCHEZ,ER IC K 03/09 [facility]P EST MOD 30 MIN [id number] Diagnos is: ICD-10- CM K92.1 EVELIN Rizzo NDRA C 03/09 [facility] Encounter [id number] 03/14 [facility] Out[facility] Encounter [id number] 03/28 [facility] Out[facility]counter [id number] [facility] Out[facility] Encounter [id number] [facility] Out[facility] Encounter [id number] 04/12 [facility] Out[facility] Encounter [id number] 04/17 [facility] Out[facility] Encounter [id number] 04/20 [facility] Out[facility] Encounter [id number] 04/23 [facility] Out[facility] Encounter [id number] 04/23 [facility] Out[facility] Encounter [id number] 05/07 [facility]counter [id number] 05/15 [facility] Encounter [id number] 06/08 [facility] [place] [place] [place] OFFICE O/P EST MOD 30 MIN [id number] Diagnos is: ICD-10- CM R19.7 Diarrhe a, unspeci fied EVELIN GRAFA C 06/20 [place] [facility] Encounter [id number] 06/22 [facility] Encounter [id number] 1.06/24 [facility]counter [id number]/25 [facility] Encounter [id number] 06/27 [facility]counter [id number] [facility] Encounter [id number] 07/16 [facility] Encounter [id number] 07/17 [facility] [place] [place] QNHP OL DIG ASSMT&MGMT 5-10 [id number] 1BY. [id number] Diagnos is: ICD-10- CM Z04.89 Encount er for examina tion and observa tion for oth reasons EARLE CERVANTES [place] [facility] Out[facility] Encounter [id number] RADHAIMTIAZ MELGAR I 07/21 [facility] Encounter [id number] 08/02 [facility] [place] OFFICE O/P EST MOD 30 MIN [id number] Diagnos is: ICD-10- CM L60.3 Nail dystrop hy ZAMZAM MACK ES F [place] [facility] Out[facility] Encounter [id number]/24 [facility] Out[facility] Encounter [id number]/24 [facility] Out[facility] Encounter [id number] 09/05 [facility] Out[facility] Encounter [id number] 09/13 [facility] Encounter [id number] 09/17 [facility] [place] OFF[place] O/P EST HI 40 MIN [id number] Diagnos is: ICD-10- CM I48.92 Unspeci fied atrial flutter EVELIN GRAF [place] [facility] Out[facility] Encounter [id number] EVELIN GRAF 09/17 [facility] En[facility] [id number] 10/15 [facility]counter [id number] 10/15 [facility]counter [id number] 10/15 [facility] SYNCH AUDIO-ONLY EST SF 10 [id number] Diagnos is: ICD-10- CM R31.9 Hematur ia, unspeci fied NUBIA EVANS INTERMEDIATE DESIGNER 10/15 [facility] Encounter [id number] 10/17 [facility] Out[facility] Encounter [id number] 10/19 [facility] Out[facility] Encounter [id number] 10/22 [facility] Out[facility]counter [id number] 10[facility]23 [facility] Out[facility] Encounter [id number] 10/26 [facility] [place] [place] OFFICE O/P EST MOD 30 MIN [id number] Diagnos is: ICD-10- CM N18.30 Chronic kidney disease , stage 3 unspeci Annemarie Oviedo 11/01 [place] [facility] NQHP OL DIG ASSMT&MGMT 21+ [id number] Diagnos is: ICD-10- CM Z12.2 Encntr screen for maligna nt neoplas m of respira tory organs RANCHO CROOKS 11/05 [facility] Out[facility] Encounter [id number] 11[facility]05 [facility] Out[facility] Encounter [id number] 11/26 [facility] NQHP OL DIG ASSMT&MGMT 5-10 [id number] Diagnos is: ICD-10- CM Z12.2 Encntr screen for maligna nt neoplas m of respira tory organs GENI GATES 11/26 [facility] Out[facility] Encounter [id number] 1.11/30 [facility] Encounter [id number] 1.12/03 [facility] Out[facility]counter [id number] [facility] Out[facility] Encounter [id number] [facility] Out[facility] Encounter [id number] 12/10 [facility] [place]/OP EST MAY X REQ PHY/QHP [id number] Diagnos is: ICD-10- CM R68.89 Other general symptom s and signs DANIEL,ER IC K 12/10 [place] [facility] Out[facility] Encounter [id number] 12/11 [facility] [place]/OP EST MAY X REQ PHY/QHP [id number] Diagnos is: ICD-10- CM R68.89 Other general symptom s and signs DANIEL,ER IC K 12/12 [place] [facility] Outpatient Encounter [id number] 12/12 [facility] Out[facility] Encounter [id number] 12/12 [facility] Out[facility]counter [id number] 12/13 [facility] Out[facility] Encounter [id number] 12/13 [facility] Out[facility] Encounter [id number] 12/17 [facility] Social History Combined list of available smoking, tobacco, and other social history from Department of Defense and Veterans Affairs facilities. Social History Type Response Date Comment Source Tobacco smoking status [place] [facility] SCREEN FOLLOW-UP 11/01/2024 [place] History of tobacco use VA-TOBACCO USE ADVICE 11/01/2024 [place] History of tobacco use VA-TOBACCO USE EVERY DAY CIGARETTES 09/17/2024 [facility] [place] [facility] History of tobacco use VA-TOBACCO SCREEN FOLLOW-UP 09/17/2024 [place] History of tobacco use VA-TOBACCO USER EVERY DAY 09/14/2023 [facility] History of tobacco use VA-TOBACCO USER EVERY DAY 08/02/2022 [facility] [place] History of tobacco use VA-TOBACCO USE WI 30 MIN OF WAKEUP 07/28/2021 [facility] [place] History of tobacco use VA-TOBACCO USER EVERY DAY 06/04/2020 [facility] [place] [facility] History of tobacco use VA-TOBACCO USE 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 02/01/2019 [place] History of tobacco use VA-TOBACCO USER EVERY DAY 11/14/2017 [place] History of tobacco use CURRENT SMOKER 05/16/2017 ~3 cigarettes per day [place] History of tobacco use CURRENT SMOKER 11/01/2016 [place] History of tobacco use V1-PT DECLINES TOBACCO CESSATION MEDS 05/03/2016 [place] History of tobacco use CURRENT SMOKER 03/30/2016 smokes about 1 pack every 3 days for about 45 years [facility] [place] [facility] History of tobacco use V1-PT DECLINES TOBACCO CESSATION MEDS 02/19/2014 [place] History of tobacco use CURRENT SMOKER 06/04/2013 smokes a pack of cigaretts a week. [place] History of tobacco use V1-PT DECLINES TOBACCO CESSATION MEDS 08/28/2012 [place] History of tobacco use CURRENT SMOKER 01/03/2012 [place] History of tobacco use V1-PT DECLINES TOBACCO CESSATION MEDS 07/22/2011 [place] History of tobacco use CURRENT SMOKER 01/25/2011 [place] History of tobacco use CURRENT SMOKER 09/03/2009 advise stop [place] History of tobacco use V1-PT DECLINES TOBACCO CESSATION MEDS 06/28/2008 [place] History of tobacco use CURRENT SMOKER 06/28/2008 5-6 cigarettes/day [place] History of tobacco use CURRENT SMOKER 03/18/2005 [place] History of tobacco use CURRENT SMOKER 12/28/2001 Patient states he has smoked from age 16-present, 1/2 pk cigarettes daily. [place] Plan of Care List of future care activities from Department of Veterans Affairs facilities. Additional future care activities may be listed in the Assessment and Plan section. Date/Time Care Activity Care Activity Detail Daveyi yasmani 01/09/2025 AMBULATORY - MEDICINE AMBULATORY - MEDICI JACOB [place]
== END 2024-12-19 15:49 | disposition home or self-care (01) ==
LOC: HO.HUSH 15:07
PROVIDERS: PCP Internal Medicine; Visit Provider Urology
DX: Z13.9 Encounter for screening, unspecified (principal)

== ENCOUNTER → 2024-12-19 15:06 | Outpatient (BNVA) | payer OTHER, SELFPAY | PROVIDERS: PCP Internal Medicine; Visit Provider Urology | DX: C61 Malignant neoplasm of prostate (principal); N30.40 Irradiation cystitis without hematuria | CPT/HCPCS: 81003; 99212 ==

== ENCOUNTER → 2025-02-14 23:59 | Outpatient (BNV) | payer OTHER, SELFPAY ==
--- NOTE | 2025-02-19 13:55 | MHC.OFFVIS ---
Intake Visit Reasons: Remote device check- Medtronic Allergies No Known Allergies (No Known Allergies*) Allergy (Verified 12/19/24 15:23) PFSH Medical History Bleeding hemorrhoids Cardiac pacemaker in situ Tubular adenoma of colon Prostate cancer Hypertension Surgical History History of right hemicolectomy History of prostate biopsy Pacemaker H/O colonoscopy H/O hernia repair Hx of tonsillectomy Family History Father Family history of Alzheimer's disease Mother Breast cancer Social History Household Members: Children Housing: House Unable to assess alcohol history related to: Unknown Alcohol intake: current Alcohol intake frequency: a few times a month Patient Tobacco Use Status: Current someday Tobacco user Cigarettes Per Day: 1 service: No Office Procedures Cardiac Device Check Cardiac Device Check Details: Remote pacemaker report generated 02/13/2025. Pacemaker function is adequate. Persistent atrial flutter noted again [id number] Cardiac Device Interrogation, pacemaker Procedure code (CPT) selection complete Assessment & Plan Assessment & Plan (1) Cardiac pacemaker in situ: Comment: Dual-chamber Medtronic pacemaker placed for bradycardia Code(s): Z95.0 - Presence of cardiac pacemaker Category: Medical Plan: See above Coding Level of Care Code Procedure Only Diagnoses Cardiac pacemaker in situ Z95.0 CPT Codes Cardiac Device Check - Cardiac Device 12: [id number] Cardiac Device Interrogation, pacemaker ([id number])
== END ==
PROVIDERS: PCP Internal Medicine; Visit Provider Internal Medicine Cardiovascular Disease
DX: I48.92 Unspecified atrial flutter (principal); Z95.0 Presence of cardiac pacemaker
CPT/HCPCS: 93294

== ENCOUNTER 2025-03-26 11:09 | Outpatient (AMB) | payer OTHER, SELFPAY ==
--- NOTE | 2025-03-26 11:14 | MHC.OFFVIS ---
Vital Signs 03/26/25 11:17 Height 5 ft 10 in Weight 208 lb BMI 29.8 BP 106/68 Blood Pressure Location Rt brachial Position Sitting Pulse 82 Pulse Source Pulse Oximeter Pulse Oximetry (%) 98 Oxygen Delivery Method Room Air Intake Visit Reasons: Constipation, Hemorrhoid mgmt. 3 mos. Intake Note: ESTABLISHED PATIENT mgmt of chronic hemorrhoids. CC; C.O. GERD + generalized GI upset, as well as persistence of CIC w/ hematochezia. Pt states that he had been taken off the blood thinner but that he was placed back on it now? Nursing Resident Required: No Accompanied by: Self / Same As Patient Allergies No Known Allergies (No Known Allergies*) Allergy (Verified 12/19/24 15:23) HPI HPI Constipation, Hemorrhoid mgmt. 3 mos.: Details: LAST VISIT: History of right hemicolectomy Tubulovillous adenoma Postprandial diarrhea GERD (gastroesophageal reflux disease) Plan Message sent to machine i coremaker for clearance. Patient will return in 3 months to discuss going for colonoscopy. Continue Dulcolax daily. Increase fluid intake and activity to promote better bowel motility. Staff will help patient book appointment with his urologist. Continue fiber supplement daily. Patient will continue taking omeprazole daily. Avoid dietary triggers and late night snacking. Staying upright for minimum 3 hours after meals discussed with patient. Patient is agreeable to current plan of care and verbalizes understanding of instructions. She was given the opportunity to ask questions and all questions answered. ? Thank you for allowing me to participate in his care Refilled psyllium husk (with sugar) 3.4 gram/7 gram (Metamucil (with sugar)) 1 tbsp PO DAILY 822 grams 2RF bisacodyl (Dulcolax (bisacodyl)) 10 mg (2 x 5 mg) PO BEDTIME 180 tabs 4RF omeprazole 40 mg PO DAILY 90 caps 3RF K21.9 TODAY'S VISIT Patient is here today for follow-up. Patient reports that he continues to have trouble moving his bowels. Patient reports that he forgets to Dulcolax sometimes. Patient reports that sometimes despite taking Dulcolax he will still have trouble moving his bowels. Patient denies any blood in his stool. However patient does admits to urinating, thick blood in the beginning then turning into paying. Patient reports that he stopped Eliquis and noticed bleeding stopped, however he had to started again and bleeding started. Patient has an appointment with his urologist in June. Urged patient to call the office sooner if he continues to have a bleeding. Patient reports that acid reflux is not controlled. Reports epigastric pain and burning. Reflux throughout the day. Currently he is on omeprazole which he finds not helpful. Patient denies dyspepsia, dysphagia or odynophagia. Denies melena, hematochezia, unintentional weight loss or ribbon like stools. Patient is due to go for colonoscopy this year. Last colonoscopy in [address] Small tubular adenoma found. He has appointment with Cardiology in April. Will send a message to psychological operations officer to add clearance to his appointment. [facility] Medical History (Updated 03/26/25 @ 20:[address] [facility]) GERD (gastroesophageal reflux disease) Bleeding hemorrhoids Cardiac pacemaker in situ Tubular adenoma of colon Prostate cancer Hypertension Surgical History History of right hemicolectomy History of prostate biopsy Pacemaker H/O colonoscopy H/O hernia repair Hx of tonsillectomy Family History Father Family history of Alzheimer's disease Mother Breast cancer Social History Household Members: Children Housing: House Unable to assess alcohol history related to: Unknown Alcohol intake: current Alcohol intake frequency: a few times a month Patient Tobacco Use Status: Current someday Tobacco user Cigarettes Per Day: 1 service: No Review of Systems Const Denies weight gain and Denies weight loss ENT Reports no additional complaints, Denies dysphagia and Denies odynophagia Card Reports no additional complaints Resp Reports no additional complaints GI Denies abdominal pain, Denies belching, Denies melena, Denies bloating, Denies change in bowel habits, Reports constipation, Denies dysphagia, Denies excessive flatus, Denies dyspepsia, Reports heartburn, Denies diarrhea, Denies loose stools, Denies nausea, Denies odynophagia and Denies vomiting Reports hematuria (With clots) Musc Reports no additional complaints Neuro Reports no additional complaints Psych Reports no additional complaints Endo Reports no additional complaints Physical Exam Vital Signs: Last Vital Signs Pulse 82 03/26/25 11:17 BP 106/68 03/26/25 11:17 Pulse Ox 98 03/26/25 11:17 Oxygen Delivery Method Room Air 03/26/25 11:17 BMI result Body Mass Index 29.8 Const General: healthy appearing and no acute distress Nutritional Appearance: obese Orientation/consciousness: patient oriented x3 Resp Effort & Inspection: normal respiratory effort, able to speak in complete sentences, no tracheal deviation and symmetric chest movement Auscultation: clear to auscultation bilaterally Cardio Rate: regular rate GI Inspection: Yes normal to inspection, No distended and Yes obesity Palpation (GI): Soft to palpation, not firm, nontender and No hepatosplenomegaly present Auscultation: normal bowel sounds General: Yes no CVA tenderness Back/Spine/Pelvis Back: no CVA tenderness Skin General skin exam: elasticity normal, turgor normal and dry skin Neuro General: patient oriented x3 Psych Appearance: grossly normal Mental Status: mental status grossly normal Assessment & Plan Assessment & Plan (1) Adenoma of ascending colon: Comment: Code(s): D12.2 - Benign neoplasm of ascending colon Category: Medical (2) History of right hemicolectomy: Code(s): Z90.49 - Acquired absence of other specified parts of digestive tract Category: Medical (3) Tubular adenoma of colon: Code(s): D12.6 - Benign neoplasm of colon, unspecified Category: Medical (4) Bleeding hemorrhoids: Code(s): K64.9 - Unspecified hemorrhoids Category: Medical (5) GERD (gastroesophageal reflux disease): Code(s): K21.9 - Gastro-esophageal reflux disease without esophagitis Category: Medical Qualifiers: Esophagitis presence: esophagitis presence not specified Qualified Code(s): K21.9 - Gastro-esophageal reflux disease without esophagitis (6) Constipation: Code(s): K59.00 - Constipation, unspecified Qualifiers: Constipation type: slow transit constipation Qualified Code(s): K59.01 - Slow transit constipation Plan Patient will take stool softener as well. Will be due to go for colonoscopy. Patient will be sent for upper endoscopy as he is having recurrent reflux. Will start him on Nexium. Avoid dietary triggers and late night snacking. Staying upright for minimum 3 hours after meals discussed with patient. Patient will increase fluid intake and activity to promote better bowel motility. Patient has a follow-up appointment with his machine i coremaker May 08. Message sent to psychological operations officer to add clearance to his appointments. Message sent also to surgical schedulers to book upper endoscopy and colonoscopy for patient. Patient will return in 2 months, sooner on as needed basis. We will discuss prep and go over what to expect before during and after procedures. He is agreeable to this plan and verbalizes understanding of instructions. He was given the opportunity to ask questions and all questions answered. Thank you for allowing me to participate in his care Medications: New docusate sodium 200 mg (2 x 100 mg) PO BEDTIME 180 caps 3RF K59.00 - Constipation, unspecified esomeprazole magnesium (Nexium) 40 mg PO DAILY 30 caps 3RF K21.9 - Gastro-esophageal reflux disease without esophagitis Refilled bisacodyl (Dulcolax (bisacodyl)) 10 mg (2 x 5 mg) PO BEDTIME 180 tabs 4RF Coding Level of Care Code Est Pt Level 4 (77702) Complex EM visit Add On G2211 Diagnoses Adenoma of ascending colon D12.2 History of right hemicolectomy Z90.49 Tubular adenoma of colon D12.6 Bleeding hemorrhoids K64.9 Gastroesophageal reflux disease, unspecified whether esophagitis present K21.9 Esophagitis presence: esophagitis presence not specified Slow transit constipation K59.01 Constipation type: slow transit constipation Time Spent (min) 40 Comment 25 minutes spent with patient and additional 15 minutes spent reviewing his records
[2025-03-26 11:17] VITALS: BP 106/68; PULSE 82; O2SAT 98; BMI 29.8
== END 2025-03-26 11:37 | disposition home or self-care (01) ==
LOC: HO.HGI 11:09
PROVIDERS: PCP Internal Medicine; Visit Provider Nurse Practitioner Family
DX: D12.2 Benign neoplasm of ascending colon (principal); Z90.49 Acquired absence of other specified parts of digestive tract; D12.6 Benign neoplasm of colon, unspecified; K64.9 Unspecified hemorrhoids; K21.9 Gastro-esophageal reflux disease without esophagitis; K59.01 Slow transit constipation
CPT/HCPCS: 99214; G2211

== ENCOUNTER → 2025-03-26 11:09 | Outpatient (BNVA) | payer OTHER, SELFPAY | PROVIDERS: PCP Internal Medicine; Visit Provider Nurse Practitioner Family | DX: D12.2 Benign neoplasm of ascending colon (principal); D12.6 Benign neoplasm of colon, unspecified; K64.9 Unspecified hemorrhoids; K21.9 Gastro-esophageal reflux disease without esophagitis; K59.01 Slow transit constipation; Z90.49 Acquired absence of other specified parts of digestive tract | CPT/HCPCS: 99212 ==

== ENCOUNTER 2025-05-06 09:52 | Outpatient (REF) | payer OTHER, SELFPAY ==
[2025-05-06 11:13] LABS: Anion Gap 9 (12-20); Blood Urea Nitrogen 14 mg/dL (9-16); Calcium 9.2 mg/dL (8.4-10.2); Carbon Dioxide 24 mmol/L (22-29); Chloride 110 mmol/L (96-108); Estimated Glomerular Filt Rate 51; Potassium 4.3 mmol/L (3.3-5.1); Sodium 139 mmol/L (135-145)
[2025-05-06 11:35] LABS: Prostate Specific Antigen 0.48 ng/mL (<0.05-4.0)
== END 2025-05-06 09:53 | disposition home or self-care (01) ==
LOC: HO.LAB 09:52
PROVIDERS: Nurse Practitioner Family; Visit Provider Urology
DX: Z12.5 Encounter for screening for malignant neoplasm of prostate (principal); R94.39 Abnormal result of other cardiovascular function study; C61 Malignant neoplasm of prostate
CPT/HCPCS: 36415; 80048; 84153

== ENCOUNTER 2025-05-08 09:06 | Outpatient (AMB) | payer OTHER, SELFPAY ==
--- NOTE | 2025-05-08 09:09 | A.OFFVIS_ITS ---
Vital Signs 05/08/25 09:10 Height 5 ft 10 in Weight 205 lb 0.478 oz BMI 29.4 BP 120/76 Blood Pressure Location Lt brachial Position Sitting Pulse 62 Intake Visit Reasons: 1 yr fu/pcr check/ preop colonoscopy Intake Note: 1 year follow-up with ekg and Medtronic having colonscopy c/o bleeding Manager Strategic Required: No Allergies No Known Allergies (No Known Allergies*) Allergy (Verified 12/19/24 15:23) Medication List - Last Reconciled 05/08/25 by Jadon Navarro MD allopurinol 300 mg PO DAILY amlodipine 10 mg PO DAILY apixaban (Eliquis) 5 mg PO BID bisacodyl (Dulcolax (bisacodyl)) 10 mg (2 x 5 mg) PO BEDTIME coal tar 2% 1 appl topical 2XW PRN docusate sodium 200 mg (2 x 100 mg) PO BEDTIME esomeprazole magnesium (Nexium) 40 mg PO DAILY glycerin (adult) 1 supp CO DAILY PRN metoprolol succinate ER 50 mg PO DAILY oxybutynin chloride ER 10 mg PO DAILY psyllium husk (with sugar) 3.4 gram/7 gram (Metamucil (with sugar)) 1 tbsp PO DAILY sildenafil 100 mg PO DAILY PRN HPI Comments Details: CarlosE nrique comes for follow-up. I reviewed his labs from November which showed significant anemia. He said he has been having recurrent episodes of hematuria with passing blood clots. He said he was advised by Urology to stop his Eliquis for some time in his hematuria had dissipated. And then he was advised to restart Eliquis and he has started having hematuria again. He was told that he has radiation cystitis related to prostate cancer treatment and also has history of bleeding hemorrhoids. He said this continues to be an issue for him as well. He denies any overt cardiac symptoms overall. Denies any worsening chest pain although appears somewhat short of breath. Denies any palpitations, lightheadedness, syncope. No orthopnea, PND. His remote pacer has shown persistent atrial flutter which has been persistent in his past and he has tolerated that well without needing rhythm control. His coronary CTA showed nonobstructive [id number] disease. Cardiac MRI in the past had shown suggestive of hypertrophic cardiomyopathy. [facility] Medical History GERD (gastroesophageal reflux disease) Bleeding hemorrhoids Cardiac pacemaker in situ Tubular adenoma of colon Prostate cancer Hypertension Surgical History History of right hemicolectomy History of prostate biopsy Pacemaker H/O colonoscopy H/O hernia repair Hx of tonsillectomy Family History Father Family history of Alzheimer's disease Mother Breast cancer Social History Household Members: Children Housing: House Alcohol intake: current Alcohol intake frequency: a few times a month Patient Tobacco Use Status: Current someday Tobacco user Cigarettes Per Day: 1 service: No Review of Systems Const Denies chills, Denies fatigue, Denies fever(s), Denies frequent falls, Denies weakness, Denies weight gain and Denies weight loss ENT Denies dizziness Card Denies chest pain, Denies leg edema, Denies lightheadedness, Denies palpitations, Denies dyspnea, Denies dyspnea on exertion, Denies orthopnea and Denies other (loss of consciousness) Resp Denies cough, Denies dyspnea and Denies dyspnea on exertion GI Denies hematochezia and Denies change in stool character Musc Denies abnormal gait, Denies muscle weakness, Denies numbness, Denies radiating pain into limb and Denies tingling Neuro Denies abnormal gait, Denies dizziness, Denies frequent falls, Denies numbness, Denies tingling and Denies weakness Endo Denies fatigue and Denies palpitations Physical Exam Vital Signs: Last Vital Signs Pulse 62 05/08/25 09:10 BP 120/76 05/08/25 09:10 BMI result Body Mass Index 29.4 Const General: cooperative, comfortable, no acute distress, alert and awake Nutritional Appearance: overweight Orientation/consciousness: patient oriented x3 Limitations: no limitations Neck Neck: Yes trachea midline, Yes supple and Yes no JVD Resp Effort & Inspection: normal respiratory effort Auscultation: clear to auscultation bilaterally Cardio Jugular venous distension: no JVD Palpation: normal PMI Rate: regular rate Rhythm: regular rhythm Heart sounds: S1 normal heart sound present and S2 normal heart sound present GI Auscultation: normal bowel sounds Skin General skin exam: no rashes or lesions noted Neuro General: patient oriented x3 and no focal motor deficits Extrem General: Yes no clubbing, cyanosis or edema Psych Appearance: grossly normal Office Procedures Cardiac Device Check Cardiac Device Check Details: Dual-chamber pacemaker programmed in DDIR mode. Underlying atrial flutter noted. Ventricular pacing thresholds are adequate. Ventricular sensing is adequate. Pacing lead impedance is stable. Battery life is at 4 and half years 61560-RO Cardiac Device Check, pacemaker dual lead Procedure code (CPT) selection complete Assessment & Plan Assessment & Plan (1) Atrial flutter: Code(s): I48.92 - Unspecified atrial flutter Category: Medical Plan: Persistent atrial flutter in the past similar to now has had no symptoms. No signs or symptoms of heart failure. Will continue rate control approach. He has complete heart block and pacer dependent see below. Unfortunately now he is having recurrent hematuria and significant anemia. Cause for anemia could be hematuria but more likely GI blood loss. Recommend consult for Watchman device as he has radiation cystitis which is probably not treatable. This was discussed with him. He has had multiple Urology presentation. For now given that he has active hematuria and possible GI blood loss to hold his Eliquis as his bleeding stops and resume as soon as possible after that. Continue to follow with urology. Will also refer him to Hematology for iron therapy. He is currently not on any iron therapy. This most likely explains his symptoms of shortness of breath. (2) Cardiac pacemaker in situ: Comment: Dual-chamber Medtronic pacemaker placed for bradycardia Code(s): Z95.0 - Presence of cardiac pacemaker Category: Medical Plan: Cardiac pacemaker in-situ for complete heart block. Pacemaker is working very well. Follow up remotely every 3 months. Follow up in the clinic in 6 months time. (3) Hypertrophic cardiomyopathy: Code(s): I42.2 - Other hypertrophic cardiomyopathy Category: Medical Plan: Cardiac MRI suggestive of hypertrophic cardiomyopathy with echo showing severe LVH. Nonobstructive physiology. Continue aggressive blood pressure control. Continue metoprolol therapy. Will continue monitor for remote telemetry for nonsustained ventricular tachycardia that may require upgrade to the device. Will continue monitor it. Avoidance of stimulants was discussed. Follow-up echocardiogram in near future. Will follow up in the clinic in 6 months time, sooner PRN. Thank you for allowing me to partake in his care Orders: Orders Basic Metabolic Panel Today R31.9 - Hematuria, unspecified Complete Blood Count no Diff Today R31.9 - Hematuria, unspecified Coding Level of Care Code Est Pt Level 4 (07590) Complex EM visit Add On G2211 Diagnoses Atrial flutter I48.92 Cardiac pacemaker in situ Z95.0 Hypertrophic cardiomyopathy I42.2 CPT Codes Cardiac Device Check - Cardiac Device 2: 80281-CR Cardiac Device Check, p acemaker dual lead ([id number])
[2025-05-08 09:10] VITALS: BP 120/76; PULSE 62; BMI 29.4
== END 2025-05-08 09:34 | disposition home or self-care (01) ==
LOC: HO.HCS 09:07
PROVIDERS: PCP Internal Medicine; Visit Provider Internal Medicine Cardiovascular Disease
DX: I48.92 Unspecified atrial flutter (principal); Z95.0 Presence of cardiac pacemaker; I42.2 Other hypertrophic cardiomyopathy
CPT/HCPCS: 93280; 99214; G2211

== ENCOUNTER 2025-05-08 09:06 | Outpatient (REF) | payer OTHER, SELFPAY ==
[2025-05-08 11:07] LABS: Hematocrit 28.0 % (42.0-52.0); Hemoglobin 8.3 g/dl (14.0-18.0); Mean Corpuscular HGB Conc 29.6 g/dl (31.0-36.0); Mean Corpuscular Hemoglobin 22.7 pg (27.0-33.0); Mean Corpuscular Volume 76.5 fL (80.0-98.0); NRBC Abs Auto 0.020 X10*3/uL (0.0-0.012); NRBC Pct Auto 0.6 /100WBC (0.0-0.2); Platelet Count 205 X10*3/uL (160-400); Red Blood Count 3.66 X10*6/uL (4.60-5.80); White Blood Count 3.6 X10*3/uL (4.8-10.8)
[2025-05-08 12:01] LABS: Anion Gap 12 (12-20); Blood Urea Nitrogen 13 mg/dL (9-16); Calcium 10.0 mg/dL (8.4-10.2); Carbon Dioxide 22 mmol/L (22-29); Chloride 109 mmol/L (96-108); Estimated Glomerular Filt Rate 46; Potassium 4.4 mmol/L (3.3-5.1); Sodium 139 mmol/L (135-145)
== END 2025-05-08 09:07 | disposition home or self-care (01) ==
LOC: HO.LAB 09:06
PROVIDERS: Nurse Practitioner Family; PCP Internal Medicine; Visit Provider Internal Medicine Cardiovascular Disease
DX: I48.92 Unspecified atrial flutter (principal); I42.2 Other hypertrophic cardiomyopathy; Z95.0 Presence of cardiac pacemaker; R31.9 Hematuria, unspecified; F17.210 Nicotine dependence, cigarettes, uncomplicated
CPT/HCPCS: 36415; 80048; 85027; 93005; 93280; 99212

== ENCOUNTER → 2025-05-17 09:20 | Outpatient (BNV) | payer OTHER, SELFPAY | PROVIDERS: Visit Provider Nurse Practitioner Family | DX: D50.9 Iron deficiency anemia, unspecified (principal) | CPT/HCPCS: 99204 ==

== ENCOUNTER → 2025-05-17 23:59 | Outpatient (BNV) | payer OTHER, SELFPAY ==
--- NOTE | 2025-05-20 16:05 | MHC.OFFVIS ---
Intake Visit Reasons: Remote device check- Medtronic Allergies No Known Allergies (No Known Allergies*) Allergy (Verified 05/17/25 09:06) PFSH Medical History GERD (gastroesophageal reflux disease) Bleeding hemorrhoids Cardiac pacemaker in situ Tubular adenoma of colon Prostate cancer Hypertension Surgical History History of right hemicolectomy History of prostate biopsy Pacemaker H/O colonoscopy H/O hernia repair Hx of tonsillectomy Family History Father Family history of Alzheimer's disease Mother Breast cancer Social History Household Members: Children Housing: House Alcohol intake: current Alcohol intake frequency: a few times a month Patient Tobacco Use Status: Current someday Tobacco user service: No Office Procedures Cardiac Device Check Cardiac Device Check Details: Remote pacemaker report generated 05/17/2025. Pacemaker function is adequate. [id number] Cardiac Device Interrogation, pacemaker Procedure code (CPT) selection complete Assessment & Plan Assessment & Plan (1) Cardiac pacemaker in situ: Comment: Dual-chamber Medtronic pacemaker placed for bradycardia Code(s): Z95.0 - Presence of cardiac pacemaker Category: Medical Plan: See above Coding Level of Care Code Procedure Only Diagnoses Cardiac pacemaker in situ Z95.0 CPT Codes Cardiac Device Check - Cardiac Device 12: 82417-[id number] Cardiac Device Interrogation, pacemaker ([id number])
== END ==
PROVIDERS: Visit Provider Internal Medicine Cardiovascular Disease
DX: R00.1 Bradycardia, unspecified (principal); Z95.0 Presence of cardiac pacemaker
CPT/HCPCS: 93294

== ENCOUNTER 2025-05-30 06:58 | Day surgery (SDC) | payer OTHER, SELFPAY ==
--- NOTE | 2025-05-28 12:53 | HO.ANESPROP2 ---
Documented by User: Yasmine Garcia NP 05/28/25 13:06 HPI - Anesthesia Eval Consult details Narrative: 74 yr old male for Upper Endoscopy and Colonoscopy *Dr. Navarro stated pt optimized for procedure, low to intermediate risk. Pacemaker: device check done 05/17/25 Persistent atrial flutter: has been off blood thinner due to blood loss anemia Smoke 1/2 pk cigarettes per day [facility] Active Problems Active Problems: All Active Problems (Updated 05/17/25 @ 11:48 by Lyndsay Arnett NP) Anemia (Acute) Hypertrophic cardiomyopathy (Acute) GERD (gastroesophageal reflux disease) (Acute) Hematuria (Acute) LVH (left ventricular hypertrophy) (Acute) NSVT (nonsustained ventricular tachycardia) (Acute) Hypertension (Acute) Urinary urgency (Acute) Radiation cystitis (Acute) Prostate cancer (Acute) Hx of malignant neoplasm of prostate (Acute) Bleeding hemorrhoids (Acute) Cardiac pacemaker in situ (Acute) Tubular adenoma of colon (Acute) History of right hemicolectomy (Acute) Hyperlipidemia (Acute) Asthma (Acute) Adenoma of ascending colon (Acute) Atrial flutter (Acute) Past Medical History Medical History Complete heart block GERD (gastroesophageal reflux disease) Bleeding hemorrhoids Cardiac pacemaker in situ Tubular adenoma of colon Prostate cancer Hypertension Family History Family History Father Family history of Alzheimer's disease Mother Breast cancer Surgical History Surgical History History of right hemicolectomy History of prostate biopsy Pacemaker H/O colonoscopy H/O hernia repair Hx of tonsillectomy Social History Social History Household Members: Children Housing: House Unable to assess alcohol history related to: Unknown Alcohol intake: current Alcohol intake frequency: a few times a month Patient Tobacco Use Status: Current everyday Tobacco user Tobacco use type: Cigarette Use of substances other than those prescribed or required for medical reasons: No Advance Directives: No Advance Directives Information Provided: Yes service: No Meds Allergies Allergy/AdvReac Type Severity Reaction Status Date / Time No Known Allergies (No Known Allergy Verified 05/17/25 09:06 Allergies*) Home Medications ?Medication ?Instructions ?Recorded ?Confirmed ?Last Taken ?Type allopurinol 300 mg tablet 300 mg PO DAILY 12/08/24 05/28/25 12/08/24 History amlodipine 10 mg tablet 10 mg PO DAILY 12/08/24 05/28/25 12/08/24 History coal tar 2 % shampoo 1 appl topical 2XW PRN seborrheic 12/08/24 05/28/25 Unknown History dermatitis glycerin (adult) 1 supp [place] DAILY PRN Constipation 12/08/24 05/28/25 Unknown History oxybutynin chloride 10 mg 10 mg PO DAILY 12/08/24 05/28/25 12/08/24 History tablet,extended release 24 hr sildenafil 100 mg tablet 100 mg PO DAILY PRN Sexual Activity 12/08/24 05/28/25 Unknown History Exam Pertinent Lab Results Pertinent Lab Results: Laboratory Tests 05/17/25 08:24 WBC 3.0 L RBC 3.60 L Hgb 8.1 L Hct 26.9 L Plt Count 205 Sodium 138 Potassium 4.5 BUN 22 H Creatinine 1.47 H Narrative Narrative: Device check 05/17/25 Battery life 4.4 yrs 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 The visually estimated ejection fraction is between 55-60%. - There is severely increased left ventricular wall thickness (with some asymmetric septal hypertrophy). - The left atrium is severely dilated. - There is mild dilatation of the sinuses of Valsalva measuring 4.20 cm and mild dilatation of the ascending aorta measuring 4.00 cm. Documented by User: Leticia Marcum MD 05/30/25 08:13 PMFSH Past Medical History Medical History Complete heart block GERD (gastroesophageal reflux disease) Bleeding hemorrhoids Cardiac pacemaker in situ Tubular adenoma of colon Prostate cancer Hypertension Family History Family History Father Family history of Alzheimer's disease Mother Breast cancer Family history of problems with anesthesia: No Surgical History Surgical History History of right hemicolectomy History of prostate biopsy Pacemaker H/O colonoscopy H/O hernia repair Hx of tonsillectomy History of Problems with Anesthesia: No Social History Social History Household Members: Children Housing: House Unable to assess alcohol history related to: Unknown Alcohol intake: current Alcohol intake frequency: a few times a month Patient Tobacco Use Status: Current everyday Tobacco user Tobacco use type: Cigarette Use of substances other than those prescribed or required for medical reasons: No Advance Directives: No Advance Directives Information Provided: Yes service: No Meds Allergies Allergy/AdvReac Type Severity Reaction Status Date / Time No Known Allergies (No Known Allergy Verified 05/17/25 09:06 Allergies*) Home Medications ?Medication ?Instructions ?Recorded ?Confirmed ?Last Taken ?Type allopurinol 300 mg tablet 300 mg PO DAILY 12/08/24 05/28/25 12/08/24 History amlodipine 10 mg tablet 10 mg PO DAILY 12/08/24 05/28/25 12/08/24 History coal tar 2 % shampoo 1 appl topical 2XW PRN seborrheic 12/08/24 05/28/25 Unknown History dermatitis glycerin (adult) 1 supp [place] DAILY PRN Constipation 12/08/24 05/28/25 Unknown History oxybutynin chloride 10 mg 10 mg PO DAILY 12/08/24 05/28/25 12/08/24 History tablet,extended release 24 hr sildenafil 100 mg tablet 100 mg PO DAILY PRN Sexual Activity 12/08/24 05/28/25 Unknown History Exam Airway Mallampati Class: III TM Dist: <=3cm Neck ROM: Limited Heart: rrr Lungs: cta Assessment and Plan Assessment Anesthesia Assessment: Anesthesia Plan Discussed and Chart Reviewed Final Anesthetic Review Family History of Problems with Anesthesia: No History of Problems with Anesthesia: No NPO: Yes ASA Class: III Final Preanesthetic Review: No Changes in Pt Med Stat, Meds/Allgs Chart Reviewed, Consent Obtained/Reviewed and Anes Risks/Benef Reviewed Patient Risk: Intermediate Procedure Risk: Low Anesthetic Plan Anesthetic Plan: MAC: and Agree w/ Assess. and Plan Disposition: Standard PACU
[2025-05-28 13:37] VITALS: BMI 29.8
[2025-05-30 07:22] VITALS: BMI 29.0
[2025-05-30 07:28] VITALS: BP 174/86; PULSE 69; RESP 16; TEMP 36.4; O2SAT 97
[2025-05-30] MEDS: Lactated Ringers 1,000 ML 100 ML IVCONT (07:29)
--- NOTE | 2025-05-30 08:06 | MHC.SHP ---
Pre-Procedural Eval Section A - 24 Hr Update-Section A only Date of Service: 05/30/25 Section B - Complete if H&P > 30 days Chief Complaint: gerd,benign neoplasm of colon Relevant Family History (Specify if Yes): No Relevant Social History: Tobacco Use Present Medications: see Short Stay Collaborative assessment Medical History: Significant History (GERD (gastroesophageal reflux disease) Bleeding hemorrhoids Cardiac pacemaker in situ Tubular adenoma of colon Prostate cancer Hypertension) History of Previous Operations: Relevant previous surgery/procedure and date(s) ( History of right hemicolectomy History of prostate biopsy Pacemaker H/O colonoscopy H/O hernia repair Hx of tonsillectomy) Allergies: Allergies Allergy/AdvReac Type Severity Reaction Status Date / Time No Known Allergies (No Known Allergy Verified 05/17/25 09:06 Allergies*) Review of Systems Sugical H&P ROS: Negative: Constitution, Cardiovascular, Respiratory, Neurological, Psychiatric, Hem-Onc, Allergic/Immunologic, Gastrointestinal, Genitourinary, Musculoskeletal, Integumentary, Endocrine and Eyes/Ears/Nose/Throat Exam Surgical H&P Exam: Normal: HEENT, Normal: Heart, Normal: Lungs, Normal: Extremities, Normal: Abdomen, Normal: Skin and Normal: Neurological Plan Diagnosis/Plan: Unchanged I have reviewed the history and physical and performed a pertinent physical examination on my patient. No changes have occurred unless specified. Time Spent With Patient Time: Total time managing care of this patient today ____ minutes.
--- NOTE | 2025-05-30 08:42 | HO.OPN-COLON ---
Colonoscopy Operative Note Operative Note Date of Service: 05/30/25 Narrative: Operative Information Procedure Description: EGD, Colonoscopy Indication: GERD, hx of colon polyps Anesthesia: [] FLEXIBLE TRANSORAL UPPER GASTROINTESTINAL ENDOSCOPY AND COLONOSCOPY PROCEDURE NOTE UPPER ENDOSCOPY Consent: Indications for the procedure and potential complications of bleeding, perforation, reaction to medications and missed diagnosis were discussed with the patient and informed consent was obtained. Instrument: Olympus GIF H 190 J mid size upper endoscope Monitoring: Vital signs and clinical assessment, continuous EKG monitoring, Pulse oximetry, Carbon Dioxide monitoring and blood pressure monitoring were done throughout the procedure. Procedure: The patient was placed in the left lateral decubitis position and pre-procedure medications were administered and a bite block was placed. The endoscope was inserted into the mouth and advanced under direct vision to the third part of duodenum. A careful inspection was made as the upper endoscope was withdrawn including a retroflexed examination of the proximal stomach; Findings and interventions are described below. Findings: Larynx:normal Esophagus: GE junction at 42 cm, diaphragm hiatus at 42 cm, possible one short tongue of barretts, bx taken Stomach: Mild erythema. Biopsies were obtained. Grade 2 flap valve on retroflexed examination of the cardia. Duodenum: Normal bulb and descending duodenum, Intervention: Biopsies as noted above, COLONOSCOPY Instrument: Olympus variable stiffness pediatric scope 190L Colonoscopy Monitoring: Vital signs and clinical assessment, continuous EKG monitoring, Pulse oximetry, Carbon Dioxide monitoring and blood pressure monitoring were done throughout the procedure. Colon withdrawal time was 6 minutes. Procedure: The patient was placed in the left lateral decubitis position and pre-procedure medications were administered. After a digital rectal examination of the ano-rectum, the video colonoscope was inserted into the rectum and advanced through the colon to the cecum/TI. The colonoscope was slowly withdrawn in a retrograde panoramic fashion and the colon mucosa was carefully examined including a retroflexed view of the rectum. Findings and interventions are described below. Procedure Difficulty:moderate Findings: ileo colonic anastomosis noted Ascending Colon: 10-12 mm sessile polyp removed with cold snare and x1 sessile polyp 5-6 mm removed with cold forceps Transverse Colon - x 2 sessile polyps 6-8 mm removed with cold snare Descending Colon: 4-5 mm sessile polyp removed with cold forceps Sigmoid Colon: normal Rectum: Retroflexion with small internal hemorrhoids, grade I Anorectum - normal Colon preparation: Delmar Bowel Preparation Scale Right colon; 2 Transverse colon: 2 Left colon; 2 (0 = Unprepared colon segment with mucosa not seen due to solid stool that cannot be cleared. 1 = Portion of mucosa of the colon segment seen, but other areas of the colon segment not well seen due to staining, residual stool and/or opaque liquid. 2 = Minor amount of residual staining, small fragments of stool and/or opaque liquid, but mucosa of colon segment seen well. 3 = Entire mucosa of colon segment seen well with no residual staining, small fragments of stool or opaque liquid) Impression and Post Procedure Diagnosis: Endoscopy Findings: possible barretts lax LES Colonoscopy Findings: colon polyps x 5 internal hemorrhoids Plan: Await Pathology results Repeat Colonoscopy in 1-2 years due to polyps or earlier if clinically indicated High fiber diet leaflet avoid straining at stool, epsom salts and sitz bath, anusol supps or cream if barretts pos then repeat EGD same time Above findings were reviewed with the patient and relevant handouts were provided if indicated.
[2025-05-30 08:50] VITALS: BP 103/70; PULSE 64; RESP 16; TEMP 36.7; O2SAT 92
[2025-05-30 09:05] VITALS: BP 123/69; PULSE 60; RESP 15; TEMP 36.7; O2SAT 96
== END 2025-05-30 09:33 | disposition home or self-care (01) ==
PROVIDERS: PCP General Practice; Visit Provider Internal Medicine Gastroenterology
PROC: (CPT 45385; principal; 2025-05-30 08:10)
DX: Z12.11 Encounter for screening for malignant neoplasm of colon (principal); Z86.0101 Personal history of adenomatous and serrated colon polyps; D12.3 Benign neoplasm of transverse colon; D12.2 Benign neoplasm of ascending colon; D12.4 Benign neoplasm of descending colon; K64.0 First degree hemorrhoids; K59.01 Slow transit constipation; Z90.49 Acquired absence of other specified parts of digestive tract; Z98.0 Intestinal bypass and anastomosis status; K21.9 Gastro-esophageal reflux disease without esophagitis; K29.50 Unspecified chronic gastritis without bleeding; K22.70 Barrett's esophagus without dysplasia; K44.9 Diaphragmatic hernia without obstruction or gangrene; I10 Essential (primary) hypertension; C61 Malignant neoplasm of prostate; Z95.0 Presence of cardiac pacemaker; Z79.899 Other long term (current) drug therapy; Z79.01 Long term (current) use of anticoagulants; Z98.890 Other specified postprocedural states; F17.210 Nicotine dependence, cigarettes, uncomplicated
CPT/HCPCS: 45385; 45380; 43239; 88305; 88313; 88342; J2003; J2704

== ENCOUNTER → 2025-05-30 06:58 | Outpatient (BNV) | payer OTHER, SELFPAY | PROVIDERS: PCP General Practice; Visit Provider Internal Medicine Gastroenterology | DX: Z12.11 Encounter for screening for malignant neoplasm of colon (principal); Z86.0100 Personal history of colon polyps, unspecified; D12.2 Benign neoplasm of ascending colon; D12.3 Benign neoplasm of transverse colon; D12.4 Benign neoplasm of descending colon; K64.0 First degree hemorrhoids; K21.9 Gastro-esophageal reflux disease without esophagitis; K22.70 Barrett's esophagus without dysplasia; K22.4 Dyskinesia of esophagus | CPT/HCPCS: 43239; 45380; 45385 ==

== ENCOUNTER 2025-06-14 08:30 | Outpatient (RCR) | payer OTHER, SELFPAY ==
[2025-06-04 07:59] VITALS: BP 150/77; PULSE 67; RESP 16; TEMP 36.6; O2SAT 96
[2025-06-14 07:53] VITALS: BP 153/76; PULSE 74; RESP 16; TEMP 36.7; O2SAT 98
== END 2025-06-14 08:48 | disposition home or self-care (01) ==
LOC: HO.INF 08:30
PROVIDERS: Visit Provider Nurse Practitioner Family
DX: D50.9 Iron deficiency anemia, unspecified (principal)
CPT/HCPCS: 96365; J1439

== ENCOUNTER 2025-06-14 09:09 | Outpatient (REF) | payer OTHER, SELFPAY ==
[2025-06-14 11:16] LABS: Prostate Specific Antigen 0.49 ng/mL (<0.05-4.0)
== END 2025-06-14 09:10 | disposition home or self-care (01) ==
LOC: HO.LAB 09:09
PROVIDERS: Absent Provider Internal Medicine Medical Oncology; Visit Provider Urology
DX: Z12.5 Encounter for screening for malignant neoplasm of prostate (principal); C61 Malignant neoplasm of prostate
CPT/HCPCS: 36415; 84153

== ENCOUNTER 2025-06-21 08:23 | Outpatient (AMB) | payer OTHER, SELFPAY ==
--- NOTE | 2025-06-21 08:31 | A.OFFVIS_ITS ---
Intake Visit Reasons: 6M PSA/UA/PVR Intake Note: Patient is Present for Follow Up Urology Medication: Sildenafil, Oxybutynin Antibiotic Allergies:None Blood Thinners: None PVR: 42ml Cloth Weigher Required: No Accompanied by: Self / Same As Patient Allergies No Known Allergies (No Known Allergies*) Allergy (Verified 06/21/25 08:55) HPI Comments Details: Carlos Enrique is a pleasant male. He is a patient of Dr. Poole. He is seen for the following urologic conditions - prostate cancer - radiation cystitis Has noticed multiple episodes of hematuria Prior radiation cystitis new needs check cystoscopy Also start off finasteride just to try to help manage He has significant risk factors for bleeding in the setting of anticoagulation. Cardiology should be aware of this and minimize anticoagulation use appropriately. PSA 02/03 0.2, 11/04 0.26, 04/07 0.3, 10/09 0.3, 01/06 0.5 Radiation cystitis Presentation with intermittent hematuria Failed oxybutynin previously Prostate cancer - grade group 4 EXBRT [address] Gan PSA 11.2 Initial biopsy demonstrated Lem[place] 6, 7, 8 and 9 Underwent external beam radiation at [facility] with 18 months GnRH hormones Imaging - initial bone scan and CT scan showed no steven disease PFSH Medical History Complete heart block GERD (gastroesophageal reflux disease) Bleeding hemorrhoids Cardiac pacemaker in situ Tubular adenoma of colon Prostate cancer Hypertension Surgical History History of right hemicolectomy History of prostate biopsy Pacemaker H/O colonoscopy H/O hernia repair Hx of tonsillectomy Family History Father Family history of Alzheimer's disease Mother Breast cancer Social History Household Members: Children Housing: House Alcohol intake: current Alcohol intake frequency: a few times a month Patient Tobacco Use Status: Current everyday Tobacco user Tobacco use type: Cigarette service: No Review of Systems Const Denies chills and Denies fever(s) Card Reports no additional complaints and Denies syncope Resp Denies cough GI Denies abdominal pain and Denies heartburn Reports as per HPI and Denies change in libido Neuro Denies syncope Psych Denies change in libido Endo Denies change in libido Physical Exam Const General: cooperative, healthy appearing, comfortable and no acute distress Orientation/consciousness: patient oriented x3 HEENT Face and sinus: Yes normal facial exam Mouth: moist mucous membranes Neck Neck: Yes normal visual inspection, Yes full ROM and Yes trachea midline Chest Chest palpation & inspection: normal inspection of the chest Resp Effort & Inspection: normal respiratory effort, able to speak in complete sentences and no respiratory distress GI Inspection: Yes normal to inspection Back/Spine/Pelvis Cervical Spine: normal cervical lordosis Thoracic/Lumbar Spine: thoracic and lumbar spine normal to inspection Skin General skin exam: no rashes or lesions noted Neuro General: patient oriented x3, gait normal, tone normal and moves all extremities Extrem General: Yes normal to inspection and Yes capillary refill normal Office Procedures Post Void Residual Post Residual Void Post Void Residual (PVR): 42 44234-Fclp Void Residual by ultrasound Assessment & Plan Assessment & Plan (1) Prostate cancer: Code(s): C61 - Malignant neoplasm of prostate Category: Medical (2) Radiation cystitis: Code(s): N30.40 - Irradiation cystitis without hematuria Category: Medical (3) Hematuria: Code(s): R31.9 - Hematuria, unspecified Category: Medical Plan Office cystoscopy Orders: Orders AMB Post Void Residual by ultrasound Today R39.15 - Urgency of urination Medications: New finasteride 5 mg PO DAILY 90 tabs 1RF 90 days R31.9 - Hematuria, unspecified Patient Instructions: This note is constructed using voice recognition software. While every effort has been made to ensure accuracy coconut cooker errors may have been included. Imaging studies, laboratory and physical exam results were discussed and reviewed in detail. No major barriers to patient understanding were identified. An opportunity to ask questions regarding the treatment plan was provided. All questions were answered. The patient expressed understanding and agreement with the above treatment plan. The patient is aware they should contact our office by phone for worsening of their current condition or the appearance of new urologic symptoms. Compliance is encouraged with any medications and followup testing that is ordered. It is a privilege to participate in the urologic care of your patient. If you have any questions or concerns regarding treatment for the above conditions, or other urologic issues, please do not hesitate to contact me. The office telephone contact is [phone]. Sincerely, Dr Italo Arora MD, [facility] - Urology Compassionate Specialist Care for the Genitourinary System Coding Level of Care Code Est Pt Level 3 (21193) Complex EM visit Add On G2211 Diagnoses Prostate cancer C61 Radiation cystitis N30.40 Hematuria R31.9 CPT Codes Post Residual Void - PVR CPT Code: 06132-Kboo Void Residual by ultrasound ([id number])
== END 2025-06-21 09:19 | disposition home or self-care (01) ==
LOC: HO.HUSH 08:23
PROVIDERS: Visit Provider Urology
DX: C61 Malignant neoplasm of prostate (principal); N30.41 Irradiation cystitis with hematuria; R31.9 Hematuria, unspecified; R39.15 Urgency of urination
CPT/HCPCS: 99214

== ENCOUNTER → 2025-06-21 08:23 | Outpatient (BNVA) | payer OTHER, SELFPAY | PROVIDERS: Visit Provider Urology | DX: R31.9 Hematuria, unspecified (principal); N30.40 Irradiation cystitis without hematuria; R39.15 Urgency of urination; Z85.46 Personal history of malignant neoplasm of prostate; Z79.01 Long term (current) use of anticoagulants; F17.210 Nicotine dependence, cigarettes, uncomplicated | CPT/HCPCS: 51798; 99212 ==